=== PATIENT | male | born 1950 | race Caucasian/White ===

== ENCOUNTER → 2016-12-17 | Outpatient (CLI) | payer MEDICARE, OTHER ==
[2016-12-17 14:58] LABS: Potassium 3.9 mmol/L (3.5-5.1)
== END | disposition home or self-care (01) ==
LOC: LABWHC1 14:28
PROVIDERS: ATTEND Orthopaedic Surgery
DX: Z01.818 Encounter for other preprocedural examination (principal)
CPT/HCPCS: 36415; 80051

== ENCOUNTER → 2017-05-05 | Outpatient (CLI) | payer MEDICARE, OTHER ==
--- NOTE | 2017-05-05 09:57 | XR ---
EXAMINATION TYPE: XR abdomen 1V DATE OF EXAM: 05/05/2017 COMPARISON: NONE HISTORY: Abdominal TECHNIQUE: One view abdominal series FINDINGS: The osseous structures are intact. The bowel gas pattern is nonspecific. Surgical clips in the gallb ladder fossa. Hypertrophic degenerative changes spine. Large calcifications in the pelvis some of which may be vascular. Prostate calcifications are suspect ed. Cannot exclude a bladder calculi. No suspicious calculi overlying the renal outlines. There is a vague calcification adjacent to the ri ght transverse process of L5 measuring diameter of 4 mm. Arthropathy of the hips. IMPRESSION: 1. No evidence of renal calculi 2. Question a mid right ureteral calcification. Bladder calculi not excluded.
== END | disposition home or self-care (01) ==
LOC: RADXRMAIN 09:30
PROVIDERS: ATTEND Urology
DX: N20.0 Calculus of kidney (principal)
CPT/HCPCS: 74000

== ENCOUNTER → 2017-05-26 | Outpatient (CLI) | payer MEDICARE, OTHER ==
--- NOTE | 2017-05-26 14:45 | XR ---
Abdomen HISTORY: Renal stones Frontal view of the abdomen on 2 images correlated to prior abdomen 05/05/2017 Multiple calcifications are again seen overlying the pelvis. There are vascular calcifications presen t. Multilevel density seen on the prior exam the left hemipelvis now seen overlying the right hemipel vis may be loss prevention representative of bowel content. No other significant interval changes. Degenerative disc changes are present in the visualized spine. Right quadrant. Lung bases are clear. No bowel obstructi on or pneumoperitoneum. Sclerotic focus in the right femoral neck may represent bone island, follow-u p as indicated. IMPRESSION: Similar findings to prior exam. Additional findings above.
== END | disposition home or self-care (01) ==
LOC: RADXRMAIN 13:02
PROVIDERS: ATTEND Urology
DX: N20.1 Calculus of ureter (principal)
CPT/HCPCS: 74000

== ENCOUNTER → 2018-09-06 | Outpatient (CLI) | payer MEDICARE ==
[2018-09-06 14:57] LABS: Anion Gap 5 mmol/L; Blood Urea Nitrogen 23 mg/dL (9-20); Calcium 9.6 mg/dL (8.4-10.2); Carbon Dioxide 25 mmol/L (22-30); Chloride 112 mmol/L (98-107); Glucose 128 mg/dL (74-99); Potassium 4.7 mmol/L (3.5-5.1); Sodium 142 mmol/L (137-145)
[2018-09-06 15:11] LABS: Basophils % (A) 0 %; Eosinophils # (A) 0.3 k/uL (0-0.7); Eosinophils % (A) 3 %; HCT 37.5 % (39.0-53.0); HGB 11.6 gm/dL (13.0-17.5); Hypochromasia Slight; Lymphocytes # (A) 1.1 k/uL (1.0-4.8); Lymphocytes % (A) 11 %; MCHC 30.8 g/dL (31.0-37.0); Mean Platelet Volume 6.2; Monocytes # (A) 0.3 k/uL (0-1.0); Monocytes % (A) 3 %; Neutrophils # (A) 8.2 k/uL (1.3-7.7); Neutrophils % (A) 82 %; Platelet Count 375 k/uL (150-450); RBC 3.99 m/uL (4.30-5.90); RDW 15.3 % (11.5-15.5); WBC 9.9 k/uL (3.8-10.6)
[2018-09-06 15:36] LABS: Amorphous Sediment,Urine Rare /hpf; Appearance,Urine Clear (Clear); Bilirubin,Urine Negative (Negative); Blood,Urine Small (Negative); Color,Urine Yellow; Glucose,Urine (UA) Negative (Negative); Ketones,Urine Negative (Negative); Leukocyte Esterase,Urine Moderate (Negative); Mucus,Urine Rare /hpf; Nitrite,Urine Negative (Negative); PH, Urine 5.5 (5.0-8.0); Protein,Urine Negative (Negative); RBC,Urine 2 /hpf (0-5); Specific Gravity,Urine 1.014 (1.001-1.035); Squamous Epithelial Cell,Urine <1 /hpf (0-4); Urobilinogen,Urine <2.0 mg/dL (<2.0); WBC,Urine 10 /hpf (0-5)
--- NOTE | 2018-09-06 16:02 | XR ---
EXAMINATION TYPE: XR chest 2V DATE OF EXAM: 09/06/2018 COMPARISON: Prior chest x-ray 08/29/2018 HISTORY: Presurgical TECHNIQUE: Frontal and lateral views of the chest are obtained. FINDINGS: There is abnormal density at the posterior lung base level which appears somewhat more con spicuous than on prior exam, likely right lower lobe. Prominent lung volumes are compatible with unde rlying COPD. Apical pleural thickening is present. Suspect some scarring in the right lung base. The heart is small. Pulmonary vascularity and adonis not significantly changed. IMPRESSION: Correlate for right lower lobe pneumonia. Follow-up to resolution is recommended.
== END | disposition home or self-care (01) ==
LOC: LABPAT 13:22
PROVIDERS: ATTEND Urology
DX: Z01.818 Encounter for other preprocedural examination (principal); Z01.812 Encounter for preprocedural laboratory examination; I25.10 Atherosclerotic heart disease of native coronary artery without angina pectoris; I10 Essential (primary) hypertension; E11.9 Type 2 diabetes mellitus without complications; R31.29 Other microscopic hematuria; N40.1 Benign prostatic hyperplasia with lower urinary tract symptoms; N21.0 Calculus in bladder
CPT/HCPCS: 36415; 71046; 80048; 81001; 85025; 87086; 93005

== ENCOUNTER 2018-09-13 06:39 | Day surgery (SDC) | payer MEDICARE ==
--- NOTE | 2018-09-12 20:53 | P.GSHP ---
History of Present Illness H&P Date: 09/12/18 68 yo male with copd and urine retention, bladder stones that has failed conservative[medication] management to relieve his urine retention He comes for a cystolithotripsy and turp - Constitutional Constitutional: Reports weakness - Cardiovascular Cardiovascular: Reports high blood pressure - Respiratory Respiratory: Reports dyspnea - Menstruation Menstruation: Reports as per HPI Past Medical History Past Medical History: COPD, Hyperlipidemia, Osteoarthritis (OA), Pneumonia, Prostate Disorder Additional Past Medical History / Comment(s): PNEUMONIA/VENITLATED/TRACH @ [facility] FROM 06/12/18 TO 06/30/18, THEN TRANSFERED TO REHAB UNIT IN [facility] FROM TO 07/12/18. O2/2L @ NIGHT. RESTLESS LEG. NEUROPATHY . BLADDER CALCULI. HAS HAD ONE SEIZURE DURING [facility]. History of Any Multi-Drug Resistant Organisms: None Reported Additional Past Surgical History / Comment(s): RIGHT WRIST BX (SQ CELL). WINIFRED ARTHRO KNEE. TRIGGER RELEASE BOTH HANDS . AMPUTATION TIP INDEX LEFT. HEART CATH-NEG. Past Anesthesia/Blood Transfusion Reactions: No Reported Reaction Past Psychological History: Anxiety Smoking Status: Former smoker Past Alcohol Use History: Rare Additional Past Alcohol Use History / Comment(s): QUIT JUNE 12, 2018. .5 PPD FOR 50+ YEAR. Past Drug Use History: None Reported - Past Family History Mother Family Medical History: Cancer Additional Family Medical History / Comment(s): LUNG Medications and Allergies Home Medications Medication Instructions Recorded Confirmed Type ALPRAZolam [Xanax] 0.5 mg PO TID PRN 09/08/18 09/08/18 History Albuterol Sulfate [Proair Hfa] 1 puff IN DIRECTED PRN 09/08/18 09/08/18 History Atorvastatin [Lipitor] 10 mg PO HS 09/08/18 09/08/18 History Atorvastatin [Lipitor] 10 mg PO HS 09/08/18 09/08/18 History Finasteride [Proscar] 5 mg PO QAM 09/08/18 09/08/18 History Gabapentin [Neurontin] 100 mg PO TID 09/08/18 09/08/18 History HYDROcodone/APAP 10-325MG [Levels 1 tab PO TID 09/08/18 09/08/18 History 10-325] Ipratropium-Albuterol Nebulize 1 dose INHALATION QID 09/08/18 09/08/18 History [Duoneb 0.5 mg-3 mg/3 ml Soln] Montelukast [Singulair] 10 mg PO HS 09/08/18 09/08/18 History Roflumilast [Daliresp] 500 mg PO QAM 09/08/18 09/08/18 History Tamsulosin [Flomax] 0.4 mg PO BID 09/08/18 09/08/18 History Theophylline 12 Hour [Jaskaran-Dur] 300 mg PO QAM 09/08/18 09/08/18 History Tiotropium 18 Mcg/Puff [Spiriva] 1 puff INHALATION QA 09/08/18 09/08/18 History diphenhydrAM/PE/DM/ACETAMIN/GG 1 tab PO DIRECTED 09/08/18 09/08/18 History [Mucinex Fast-Max Day-Nite Cold] predniSONE 5 mg PO QAM 09/08/18 09/08/18 History rOPINIRole HCL 0.5 mg PO HS 09/08/18 09/08/18 History Allergies Allergy/AdvReac Type Severity Reaction Status Date / Time varenicline [From Chantix] Allergy Rash/Hives Verified 09/08/18 11:40 Surgical - Exam - General well developed, well nourished, no distress, chronically ill - Eyes PERRL, normal ocular movement - ENT no hearing loss - Neck no masses, no bruits - Respiratory ROMERO normal expansion - Cardiovascular Rhythm: regular - Abdomen Abdomen: soft, non tender - Genitourinary indwelling catheter, prostate enlarged normal penis with no external lesions, testicles present - Rectum Rectum: normal sphincter tone - Integumentary no rash, no growths - Neurologic normal coordination, normal sensation - Musculoskeletal normal gait, normal posture - Psychiatric oriented to time, oriented to person, oriented to place, speech is normal, memory intact Assessment and Plan Assessment: Impression: Urine retention due to BPH with bladder stones, copd, cad, dm Plan Cysto lithotripsy and turp
[~2018-09-13 06:39] MED LIST: AMPICILLIN 1,000 MG in SODIUM CHLORIDE 0.9% 50 ML IVPB ONE; DEXAMETHASONE SOD PHOSPHATE 10 MG/ML 1 ML VIAL IV ONE; GENTAMICIN 120 MG in SODIUM CHLORIDE 0.9% 100 ML IVPB ONE; HYDROmorphone 0.5 MG/0.5 ML SYRINGE IVP PRN; MIDAZOLAM (PF) 2 MG/2 ML VIAL IV PRN; ONDANSETRON 4 MG/2 ML VIAL IVP ONE
[2018-09-13] MEDS: LACTATED RINGERS 1,000 ML IV SCH (06:59)
[2018-09-13 07:05] LABS: Glucose,Whole Blood 142 mg/dL (75-99)
[2018-09-13] MEDS ORDERED: PROPOFOL 10 MG/ML 20 ML VIAL IV ONE (08:28)
[2018-09-13] MEDS ORDERED: fentaNYL (PF) 50 MCG/ML 2 ML AMP ONE (08:28)
[2018-09-13] MEDS ORDERED: MIDAZOLAM 2 MG/2 ML VIAL ONE (08:28)
[2018-09-13] MEDS ORDERED: ALPRAZolam 0.5 MG TAB PO PRN (09:55)
[2018-09-13] MEDS ORDERED: ALBUTEROL NEBULIZED 2.5 MG/3 ML INHALATION PRN (09:55)
[2018-09-13] MEDS ORDERED: ACETAMINOPHEN TAB 325 MG TAB PO PRN (10:00)
[2018-09-13] MEDS ORDERED: BELLADONNA-OPIUM 16.2-60 MG 1 EACH SUPP RECTAL PRN (10:00)
[2018-09-13] MEDS ORDERED: LACTATED RINGERS 1,000 ML IV ONE ×3 (10:05)
--- NOTE | 2018-09-13 10:07 | P.OP ---
Date of Procedure: 09/13/18 Preoperative Diagnosis: BPH, bladder stones Postoperative Diagnosis: Same Procedure(s) Performed: Cystoscopy, removal multiple bladder stones, TURP, bipolar Anesthesia: spinal Surgeon: Des Hayes Estimated Blood Loss (ml): 50 Pathology: other (Stones, prostate) Condition: stable Disposition: PACU Indications for Procedure: The patient is an healthy 68-year-old gentleman with cardiac and pulmonary problems with significant BPH and recurrent bladder stone formation. He comes for cystoscopy lithotripsy and TURP Description of Procedure: Patient is brought to the operating suite. He is given a successful spinal anesthetic. He's placed lithotomy position with a sterile prep and drape. Under direct vision the 25-Moldovan sheath Foroblique lens and direct vision operative is introduced in urethra it is normal. Prostatic urethra shows trilobar obstruction with edema. The bladder identifies multiple small stones. Multiple attempts allows a successful irrigation of the stones out of the bladder up. I then introduced the Soni resectoscope and bipolar loop. I first resect the middle lobe of the prostate to allow ease of passage of the scope in and out of the prostate. I moved to 12:00 and resect the left lateral lobe from bladder neck to verumontanum. I do the same with the right lateral lobe and then resect the redundant floor tissue. If any remaining prostatic chips or stones with the Ellik evacuator. Prostatic bleeding is controlled electrocautery. I reinspected the bladder there is no remaining stone or prostatic chips. I inspect the prosthetic fossa is well resected and bleeding is controlled electrocautery. I removed the resectoscope and introduce an 18- Moldovan coud-tip catheter into the bladder with clear urine return. Patient's awake and returned recovery in good condition. He'll be kept in the hospital overnight because medical problems. He'll be discharged home upon recovery tomorrow
[2018-09-13] MEDS: IPRATROPIUM-ALBUTEROL 3 ML NEB INHALATION SCH ×3 (12:55→20:36)
[2018-09-13] MEDS: DEXTROSE 5%-0.45% NACL 1,000 ML IV SCH ×2 (16:17→23:11)
[2018-09-13] MEDS: GABAPENTIN 100 MG CAP PO SCH ×2 (16:40→21:08)
[2018-09-13] MEDS: HYDROcodone/APAP 10-325MG 1 EACH TAB PO SCH ×2 (16:40→21:08)
[2018-09-13] MEDS ORDERED: MONTELUKAST 10 MG TAB PO SCH (21:00)
[2018-09-13] MEDS ORDERED: ATORVASTATIN 10 MG TAB PO SCH ×2 (21:00)
[2018-09-13] MEDS: DOCUSATE 100 MG CAP PO SCH (21:08)
[2018-09-13] MEDS: DOXYCYCLINE 100 MG CAP PO SCH (21:08)
[2018-09-14 01:37] VITALS: TEMP 98
[2018-09-14] MEDS: LACTATED RINGERS 1,000 ML IV SCH (04:42)
[2018-09-14] MEDS ORDERED: NON-FORMULARY DRUG (Tiotropium 18 Mcg/Puff 1 PUFF) INHALATION SCH (09:00)
[2018-09-14] MEDS ORDERED: Roflumilast [Daliresp] PO SCH (09:00)
[2018-09-14] MEDS ORDERED: predniSONE 5 MG TAB PO SCH (09:00)
[2018-09-14] MEDS ORDERED: THEOPHYLLINE 24 HOUR 300 MG CAP.ER.24H PO SCH (09:00)
[2018-09-14] MEDS: IPRATROPIUM-ALBUTEROL 3 ML NEB INHALATION SCH ×2 (09:05→12:57)
[2018-09-14 09:38] VITALS: BP 129/61; RESP 18
[2018-09-14] MEDS: DOCUSATE 100 MG CAP PO SCH (09:38)
[2018-09-14] MEDS: GABAPENTIN 100 MG CAP PO SCH (09:38)
[2018-09-14] MEDS: HYDROcodone/APAP 10-325MG 1 EACH TAB PO SCH (09:38)
[2018-09-14] MEDS: DOXYCYCLINE 100 MG CAP PO SCH (09:39)
--- NOTE | 2018-09-14 12:00 | P.DS ---
Providers Attending physician: Des Hayes Primary care physician: [facility] Course: The patient was admitted to the hospital yesterday [id number] for a TURP. He was brought in the hospital postoperatively because of medical reasons. Significant history of cardiac and pulmonary disease. He had a spinal anesthetic. The TURP was uneventful. The urine is cleared nicely. He'll be discharged home this morning. He'll follow-up in the office tomorrow for catheter removal. Postoperative instructions were given. He can resume his home medications. His diet is regular. He can hold the tamsulosin. It is good. Patient Condition at Discharge: Good Plan - Discharge Summary Discharge Rx Participant: Yes New Discharge Prescriptions: No Action rOPINIRole HCL 0.5 mg PO HS Roflumilast [Daliresp] 500 mg PO QAM Tiotropium 18 Mcg/Puff [Spiriva] 1 puff INHALATION QAM Ipratropium-Albuterol Nebulize [Duoneb 0.5 mg-3 mg/3 ml Soln] 1 dose INHALATION QID Gabapentin [Neurontin] 100 mg PO TID diphenhydrAM/PE/DM/ACETAMIN/GG [Mucinex Fast-Max Day-Nite Cold] 1 tab PO DIRECTED HYDROcodone/APAP 10-325MG [[place] 10-325] 1 tab PO TID Albuterol Sulfate [Proair Hfa] 1 puff IN DIRECTED PRN PRN Reason: Shortness Of Breath Or Wheezing ALPRAZolam [Xanax] 0.5 mg PO TID PRN PRN Reason: Anxiety predniSONE 5 mg PO QAM Montelukast [Singulair] 10 mg PO HS Theophylline 12 Hour [Jaskaran-Dur] 300 mg PO QAM Tamsulosin [Flomax] 0.4 mg PO BID Atorvastatin [Lipitor] 10 mg PO HS Atorvastatin [Lipitor] 10 mg PO HS Finasteride [Proscar] 5 mg PO QAM Discharge Medication List ALPRAZolam [Xanax] 0.5 mg PO TID PRN 09/08/18 [History] Albuterol Sulfate [Proair Hfa] 1 puff IN DIRECTED PRN 09/08/18 [History] Atorvastatin [Lipitor] 10 mg PO HS 09/08/18 [History] Atorvastatin [Lipitor] 10 mg PO HS 09/08/18 [History] Finasteride [Proscar] 5 mg PO QAM 09/08/18 [History] Gabapentin [Neurontin] 100 mg PO TID 09/08/18 [History] HYDROcodone/APAP 10-325MG [[place] 10-325] 1 tab PO TID 09/08/18 [History] Ipratropium-Albuterol Nebulize [Duoneb 0.5 mg-3 mg/3 ml Soln] 1 dose INHALATION QID 09/08/18 [History] Montelukast [Singulair] 10 mg PO HS 09/08/18 [History] Roflumilast [Daliresp] 500 mg PO QAM 09/08/18 [History] Tamsulosin [Flomax] 0.4 mg PO BID 09/08/18 [History] Theophylline 12 Hour [Jaskaran-Dur] 300 mg PO QAM 09/08/18 [History] Tiotropium 18 Mcg/Puff [Spiriva] 1 puff INHALATION QAM 09/08/18 [History] diphenhydrAM/PE/DM/ACETAMIN/GG [Mucinex Fast-Max Day-Nite Cold] 1 tab PO DIRECTED 09/08/18 [History] predniSONE 5 mg PO QAM 09/08/18 [History] rOPINIRole HCL 0.5 mg PO HS 09/08/18 [History] Follow up Appointment(s)/Referral(s): Des Hayes MD [STAFF PHYSICIAN] - 09/15/18 (for catheter removal) Activity/Diet/Wound Care/Special Instructions: home with duarte Discharge Disposition: HOME SELF-CARE
[2018-09-14 13:07] VITALS: PULSE 76
== END 2018-09-14 13:15 | disposition home or self-care (01) ==
LOC: OR 06:39 → 4SSUR 09:50 → OR 09-14 13:15
PROVIDERS: ATTEND Urology
DX: N41.1 Chronic prostatitis (principal); N40.1 Benign prostatic hyperplasia with lower urinary tract symptoms; R33.8 Other retention of urine; N21.0 Calculus in bladder; J43.9 Emphysema, unspecified; I25.10 Atherosclerotic heart disease of native coronary artery without angina pectoris; N13.8 Other obstructive and reflux uropathy; K21.9 Gastro-esophageal reflux disease without esophagitis; J96.11 Chronic respiratory failure with hypoxia; E78.00 Pure hypercholesterolemia, unspecified; E78.5 Hyperlipidemia, unspecified; M19.90 Unspecified osteoarthritis, unspecified site; G25.81 Restless legs syndrome; E11.40 Type 2 diabetes mellitus with diabetic neuropathy, unspecified; F41.9 Anxiety disorder, unspecified; Z87.891 Personal history of nicotine dependence; Z79.891 Long term (current) use of opiate analgesic; Z79.52 Long term (current) use of systemic steroids; Z79.899 Other long term (current) drug therapy; Z88.8 Allergy status to other drugs, medicaments and biological substances; Z99.81 Dependence on supplemental oxygen; Z87.01 Personal history of pneumonia (recurrent); Z79.2 Long term (current) use of antibiotics; Z79.51 Long term (current) use of inhaled steroids; Z87.440 Personal history of urinary (tract) infections
CPT/HCPCS: 52601; 94640 ×4; 94760; 88305; 82365; J2250; J1100; J2405; J3010; J1580; J0290; J2704; J7512

== ENCOUNTER → 2018-11-27 | Outpatient (CLI) | payer MEDICARE ==
[2018-11-27 16:01] LABS: HGB 12.9 gm/dL (13.0-17.5); MCH 28.3 pg (25.0-35.0); MCHC 31.4 g/dL (31.0-37.0); MCV 90.2 fL (80.0-100.0); Mean Platelet Volume 6.3; Platelet Count 373 k/uL (150-450); RBC 4.54 m/uL (4.30-5.90); RDW 15.1 % (11.5-15.5); WBC 10.2 k/uL (3.8-10.6)
[2018-11-27 16:15] LABS: Anion Gap 5 mmol/L; Blood Urea Nitrogen 25 mg/dL (9-20); Carbon Dioxide 27 mmol/L (22-30); Chloride 106 mmol/L (98-107); Potassium 4.2 mmol/L (3.5-5.1); Sodium 138 mmol/L (137-145)
== END ==
LOC: LABPAT 15:20
PROVIDERS: ATTEND Internal Medicine Interventional Cardiology
DX: Z01.812 Encounter for preprocedural laboratory examination (principal); R94.31 Abnormal electrocardiogram [ECG] [EKG]
CPT/HCPCS: 36415; 80051; 82565; 84520; 85027

== ENCOUNTER 2018-11-29 09:40 | Day surgery (SDC) | payer MEDICARE ==
[2018-11-28 11:37] VITALS: BMI 26.6
[~2018-11-29 09:40] MED LIST changes: -AMPICILLIN 1,000 MG in SODIUM CHLORIDE 0.9% 50 ML IVPB ONE; -DEXAMETHASONE SOD PHOSPHATE 10 MG/ML 1 ML VIAL IV ONE; -GENTAMICIN 120 MG in SODIUM CHLORIDE 0.9% 100 ML IVPB ONE; -HYDROmorphone 0.5 MG/0.5 ML SYRINGE IVP PRN; +LACTATED RINGERS 1,000 ML IV SCH; +LIDOCAINE 1% 20 ML VIAL (10MG/ML) FOR IV START INTRADERMA PRN; -MIDAZOLAM (PF) 2 MG/2 ML VIAL IV PRN; -ONDANSETRON 4 MG/2 ML VIAL IVP ONE
[2018-11-29 10:24] VITALS: RESP 20; TEMP 98.1
[2018-11-29] MEDS ORDERED: ALBUTEROL INHALER 60 PUFF/8 GM INHALER INHALATION ONE (10:50)
[2018-11-29] MEDS ORDERED: PROPOFOL 10 MG/ML 20 ML VIAL IV ONE (10:50)
[2018-11-29] MEDS ORDERED: LIDOCAINE 1% INJ 10MG/ML (20 ML MDV) ONE (10:50)
--- NOTE | 2018-11-29 11:04 | P.GSHP ---
History of Present Illness H&P Date: 11/29/18 Chief Complaint: Dysphagia 68-year-old male who is known to our service. Patient has had progressive dysphagia recently. Patient here today for upper endoscopy to evaluate the source of his dysphagia. He is currently being worked up from a pulmonary and cardiac standpoint for inguinal hernia repair. Patient with severe COPD. Past Medical History Past Medical History: COPD, Hyperlipidemia, Osteoarthritis (OA), Pneumonia, Prostate Disorder Additional Past Medical History / Comment(s): FREQUENT HOARSENESS,PNEUMONIA/VENITLATED/. TRACH @ [facility] FROM 06/12/18 TO 06/30/18, THEN TRANSFERED TO REHAB UNIT IN [facility] FROM 06/30/18 TO 07/12/18. O2/2L @ NIGHT. RESTLESS LEG. NEUROPATHY . BLADDER CALCULI. HAS HAD ONE SEIZURE DURING BRONCHOSCOPY History of Any Multi-Drug Resistant Organisms: None Reported Additional Past Surgical History / Comment(s): TURP RIGHT WRIST BX (SQ CELL). WINIFRED ARTHRO KNEE. TRIGGER RELEASE BOTH HANDS . AMPUTATION TIP INDEX LEFT. HEART CATH-NEG. Past Anesthesia/Blood Transfusion Reactions: No Reported Reaction Smoking Status: Former smoker - Past Family History Mother Family Medical History: Cancer Additional Family Medical History / Comment(s): LUNG Medications and Allergies Home Medications Medication Instructions Recorded Confirmed Type ALPRAZolam [Xanax] 0.5 mg PO TID PRN 09/08/18 11/29/18 History Albuterol Sulfate [Proair Hfa] 1 puff IN DIRECTED PRN 09/08/18 11/29/18 History Atorvastatin [Lipitor] 10 mg PO HS 09/08/18 11/29/18 History Gabapentin [Neurontin] 100 mg PO TID 09/08/18 11/29/18 History HYDROcodone/APAP 10-325MG [[place] 1 tab PO TID 09/08/18 11/29/18 History 10-325] Ipratropium-Albuterol Nebulize 1 dose INHALATION QID 09/08/18 11/29/18 History [Duoneb 0.5 mg-3 mg/3 ml Soln] Montelukast [Singulair] 10 mg PO HS 09/08/18 11/29/18 History Roflumilast [Daliresp] 500 mg PO QAM 09/08/18 11/29/18 History Theophylline 12 Hour [Jaskaran-Dur] 300 mg PO BID 09/08/18 11/29/18 History Tiotropium 18 Mcg/Puff [Spiriva] 1 puff INHALATION QAM 09/08/18 11/29/18 History diphenhydrAM/PE/DM/ACETAMIN/GG 1 tab PO DIRECTED 09/08/18 11/29/18 History [Mucinex Fast-Max Day-Nite Cold] rOPINIRole HCL 0.5 mg PO HS 09/08/18 11/29/18 History Albuterol Sulfate [Proventil Hfa] 2 puff IN DIRECTED PRN 11/28/18 11/29/18 History Calcium Carbonate [Calcium] 600 mg PO DAILY 11/28/18 11/29/18 History Cholecalciferol (Vitamin D3) 2,000 unit PO DAILY 11/28/18 11/29/18 History [Vitamin D3] Multivitamins, Thera [Multivitamin 1 tab PO DAILY 11/28/18 11/29/18 History (formulary)] predniSONE 10 mg PO DAILY 11/28/18 11/29/18 History Cephalexin [Keflex] 500 mg PO Q12HR 11/29/18 11/29/18 History Allergies Allergy/AdvReac Type Severity Reaction Status Date / Time No Known Allergies Allergy Verified 11/29/18 10:14 Surgical - Exam Vital Signs Temp Pulse Resp BP Pulse Ox 98.1 F 84 20 150/85 95 11/29/18 10:15 11/29/18 10:15 11/29/18 10:15 11/29/18 10:15 11/29/18 10:15 Physical exam: General: Well-developed, well-nourished, mildly short of breath HEENT: Normocephalic, sclerae nonicteric Abdomen: Nontender, nondistended Extremities: No edema Neuro: Alert and oriented Assessment and Plan (1) Dysphagia Narrative/Plan: Will proceed with upper endoscopy at this time with possible dilation. Risks of bleeding and perforation reviewed. He understands and wishes to proceed. Current Visit: Yes Status: Acute Code(s): R13.10 - DYSPHAGIA, UNSPECIFIED SNOMED Code(s): 22394781
--- NOTE | 2018-11-29 11:10 | P.PCN ---
Date of Procedure: 11/29/18 Procedure(s) Performed: Preoperative Dx: Dysphagia Postoperative Dx: Mild gastritis, small hiatal hernia Procedure: EGD with Bx Anesthesia: Sedation Endoscopist: Dr. Cornelius Specimens: Antrum Endoscopic Procedure: The patient was on the endoscopy table in the left decubitus position. The Olympus gastroscope was inserted into the oropharynx and passed under direct visualization to the region of the third portion of the duodenum. From that point the scope was slowly withdrawn inspecting all surfaces carefully. There were no neoplastic inflammatory or polypoid lesions throughout the duodenum. The pylorus was widely patent. The stomach was carefully inspected. There was gastritis present. A biopsy of the antrum took place to rule out H. pylori. Retroflexion revealed a small sliding hiatal hernia. No esophagitis was present. There was no obstructing lesion seen however there was mild impression on the esophagus from the region of the left bronchus and aortic notch. This did not appear to be causing significant obstruction at this time. The patient was then taken to the recovery room in stable condition per anesthesia guidelines. Recommendations: Resume diet. If symptoms of dysphagia persist would consider modified barium swallow.
[2018-11-29 11:44] VITALS: BP 121/69; PULSE 84
== END 2018-11-29 12:59 | disposition short-term general hospital (02) ==
LOC: ORWHC2ENDO 09:40
PROVIDERS: ATTEND Surgery
DX: K29.70 Gastritis, unspecified, without bleeding (principal); K44.9 Diaphragmatic hernia without obstruction or gangrene; E78.5 Hyperlipidemia, unspecified; G25.81 Restless legs syndrome; M19.90 Unspecified osteoarthritis, unspecified site; J44.9 Chronic obstructive pulmonary disease, unspecified; Z99.81 Dependence on supplemental oxygen; F41.9 Anxiety disorder, unspecified; G62.9 Polyneuropathy, unspecified; Z87.891 Personal history of nicotine dependence; Z87.442 Personal history of urinary calculi; Z79.891 Long term (current) use of opiate analgesic; Z79.52 Long term (current) use of systemic steroids; Z79.899 Other long term (current) drug therapy
CPT/HCPCS: 88305; 43239; J2001; J2704

== ENCOUNTER 2018-11-29 09:42 | Day surgery (SDC) | payer MEDICARE ==
[~2018-11-29 09:42] MED LIST changes: +ALPRAZolam 0.25 MG TAB PO PRN; +ASPIRIN 325 MG TAB PO ONE; -LACTATED RINGERS 1,000 ML IV SCH; -LIDOCAINE 1% 20 ML VIAL (10MG/ML) FOR IV START INTRADERMA PRN; +NITROGLYCERIN SL TABS 0.4 MG TAB SUBLINGUAL PRN; +SODIUM CHLORIDE 0.9% 1,000 ML in EMPTY BAG 1 BAG IV ONE
[2018-11-29] MEDS ORDERED: VERAPAMIL 2.5 MG/ML 2 ML AMP ONE (15:48)
[2018-11-29] MEDS ORDERED: LIDOCAINE 1% INJ 10MG/ML (20 ML MDV) ONE (15:48)
[2018-11-29] MEDS ORDERED: MIDAZOLAM 2 MG/2 ML VIAL IV ONE (15:49)
[2018-11-29] MEDS ORDERED: fentaNYL (PF) 50 MCG/ML 2 ML AMP IV ONE (15:49)
[2018-11-29] MEDS ORDERED: LIDOCAINE 1% INJ 10MG/ML (20 ML MDV) SQ ONE (15:49)
[2018-11-29] MEDS ORDERED: IV FLUID CONTINUATION 850 ML IV ONE (15:50)
[2018-11-29] MEDS ORDERED: VERAPAMIL SYRINGE (5 MG/10 ML) INTRAARTER ONE (15:51)
[2018-11-29] MEDS ORDERED: HEPARIN SODIUM 1,000 UN/ML (10ML VL) ONE (15:52)
[2018-11-29] MEDS ORDERED: IOPAMIDOL-370 100ML BTL INJ ONE (16:01)
[2018-11-29] MEDS ORDERED: RX INFO: IV CONTRAST WAS GIVEN 1 EACH MISC MISCELLANE PRN (16:05)
[2018-11-29] MEDS ORDERED: SODIUM CHLORIDE 0.9% 1,000 ML IV SCH (16:15)
[2018-11-29 16:32] VITALS: TEMP 97.9
[2018-11-29 16:44] VITALS: BMI 26.4
[2018-11-29 18:19] VITALS: BP 133/71; PULSE 71
--- NOTE | 2018-11-29 18:58 | LTR ---
DATE OF SERVICE: November 29, [address] Dougherty: Mr. Anuj Marcum underwent a heart catheterization today and that revealed normal coronaries. I want to thank you for allowing us to participate in his care. Please do not hesitate to call if you have any questions or concerns. Sincerely, KENDRA / MELISSA: [phone] /
--- NOTE | 2018-11-29 18:58 | CC ---
CARDIAC CATHETERIZATION REPORT DATE OF SERVICE: 11/29/2018 PERFORMING PHYSICIAN: Ant Erickson MD, industrial order clerk. PROCEDURE PERFORMED: 1. Selective right and left coronary angiogram. 2. Left heart catheterization. INDICATION: This is a 68-year-old gentleman with history of COPD, who was experiencing shortness of breath and he was going to undergo noncardiac surgery. He underwent myocardial perfusion imaging stress test and that revealed anterior ischemia and because of that, heart catheterization was advised. APPROACH: Right radial artery. COMPLICATION: None. LEVEL OF SEDATION: Moderate. Sedation length of 15 minutes. PROCEDURE DESCRIPTION: After obtaining an informed consent, the patient was brought to cardiac mobile lab technician. The right radial artery was cannulated using micropuncture technique and a micropuncture wire passed easily and placed a 6-Occitan sheath 11 cm in the right radial artery. I gave the patient 2 mg of verapamil IA and 10,000 units of heparin IV. Selective right and left coronary angiogram was performed using JR4 and JL 3.5 catheter. Left heart catheterization was performed using the JR4 catheter. The procedure was completed without complication. SELECTIVE CORONARY ANGIOGRAM: 1. The RCA is angiographically normal. RCA is a large caliber vessel and is a dominant vessel and appears to be angiographically normal. It distally bifurcates into PDA and PLV branches both appeared to be angiographically normal. 2. The left main is angiographically normal. It bifurcates into the left circumflex and left anterior descending artery. 3. The left circumflex is a large caliber vessel. It is a nondominant vessel. The left circumflex is normal and gives rise into 2 OM branches both appeared to be angiographically normal. 4. The LAD: The proximal LAD appeared to be normal. The mid LAD appeared to be normal and distally is normal as well. The LAD gives rise into a large diagonal branch which appeared to be angiographically normal. HEMODYNAMICS: The left ventricular end diastolic pressure was 4-6 mmHg without any gradient across aortic valve. CONCLUSION: 1. Normal coronary angiogram. 2. Normal left ventricular end-diastolic. POSTPROCEDURE MANAGEMENT: 1. Medical treatment. 2. Follow up with the patient. MMODL / IJN: [id number] /
[2018-11-29 20:19] VITALS: RESP 22
== END 2018-11-29 21:05 | disposition home or self-care (01) ==
LOC: CATHCVL 09:42 → 1SOBS 16:02 → CATHCVL 21:05
PROVIDERS: ATTEND Internal Medicine Interventional Cardiology
DX: R94.39 Abnormal result of other cardiovascular function study (principal); R06.02 Shortness of breath; I42.8 Other cardiomyopathies; J44.9 Chronic obstructive pulmonary disease, unspecified; J96.11 Chronic respiratory failure with hypoxia; F17.210 Nicotine dependence, cigarettes, uncomplicated; Q24.8 Other specified congenital malformations of heart; Z99.81 Dependence on supplemental oxygen; Z79.52 Long term (current) use of systemic steroids; Z79.899 Other long term (current) drug therapy; Z88.8 Allergy status to other drugs, medicaments and biological substances
CPT/HCPCS: 93458; C1769; C1894; J2250; J2001; J1644; Q9967

== ENCOUNTER 2019-03-07 07:07 | Day surgery (SDC) | payer MEDICARE ==
[2019-03-02 12:47] VITALS: BMI 26.1
[~2019-03-07 07:07] MED LIST changes: -ALPRAZolam 0.25 MG TAB PO PRN; -ASPIRIN 325 MG TAB PO ONE; +DEXAMETHASONE SOD PHOSPHATE 10 MG/ML 1 ML VIAL IV ONE; +HEPARIN SODIUM,PORCINE 5,000 UNIT/ML 1 ML VIAL SQ ONE; +HYDROmorphone 0.5 MG/0.5 ML SYRINGE IVP PRN; +LACTATED RINGERS 1,000 ML IV SCH; +LIDOCAINE 1% 20 ML VIAL (10MG/ML) FOR IV START INTRADERMA PRN; +MIDAZOLAM 2 MG/2 ML VIAL IV PRN; -NITROGLYCERIN SL TABS 0.4 MG TAB SUBLINGUAL PRN; +ONDANSETRON 4 MG/2 ML VIAL IVP ONE; -SODIUM CHLORIDE 0.9% 1,000 ML in EMPTY BAG 1 BAG IV ONE; +fentaNYL (PF) 50 MCG/ML 2 ML AMP IV PRN
[2019-03-07 07:33] LABS: Glucose,Whole Blood 121 mg/dL (75-99)
--- NOTE | 2019-03-07 07:48 | P.GSHP ---
History of Present Illness H&P Date: 03/07/19 Chief Complaint: right inguinal hernia Patient here today for repair right inguinal hernia. Patient is obtained cardiac and pulmonary clearance. Patient with history of advanced COPD and heart disease. Patient has been complaining for the last several months of persistent pain at the site of the right inguinal hernia. No nausea or vomiting. No change in bowel habits. Past Medical History Past Medical History: COPD, Hearing Disorder / Deafness, Hyperlipidemia, Osteoarthritis (OA), Pneumonia, Prostate Disorder Additional Past Medical History / Comment(s): [place], has hearing aids but does not use them. FREQUENT HOARSENESS, HX PNEUMONIA/VENITLATED/TRACH @ [facility] FROM 06/12/18 TO 06/30/18, THEN TRANSFERED TO REHAB UNIT IN [facility] FROM 06/30/18 TO 07/12/18. O2/2L @ NIGHT. RESTLESS LEG. NEUROPATHY. HX BLADDER CALCULI. HAS HAD ONE SEIZURE DURING BRONCHOSCOPY. History of Any Multi-Drug Resistant Organisms: None Reported Past Surgical History: Heart Catheterization, Prostate Surgery Additional Past Surgical History / Comment(s): TURP, RIGHT WRIST BX (SQ CELL). WINIFRED ARTHRO KNEE. TRIGGER FINGER RELEASE BOTH HANDS. AMPUTATION TIP LEFT INDEX FINGER. Tracheotomy. Past Anesthesia/Blood Transfusion Reactions: No Reported Reaction Past Psychological History: Anxiety Smoking Status: Former smoker Past Alcohol Use History: Rare Additional Past Alcohol Use History / Comment(s): QUIT SMOKING JUNE 12, 2018. SMOKED 1/2 PPD FOR 50+ YEARS. Past Drug Use History: None Reported - Past Family History Mother Family Medical History: Cancer Additional Family Medical History / Comment(s): LUNG Cancer. Medications and Allergies Home Medications Medication Instructions Recorded Confirmed Type ALPRAZolam [Xanax] 0.5 mg PO TID PRN 09/08/18 03/07/19 History Albuterol Sulfate [Proair Hfa] 1 puff IN DIRECTED PRN 09/08/18 03/07/19 History Atorvastatin [Lipitor] 10 mg PO HS 09/08/18 03/07/19 History Gabapentin [Neurontin] 100 mg PO TID 09/08/18 03/07/19 History HYDROcodone/APAP 10-325MG [[place] 1 tab PO TID 09/08/18 03/07/19 History 10-325] Ipratropium-Albuterol Nebulize 1 dose INHALATION QID 09/08/18 03/07/19 History [Duoneb 0.5 mg-3 mg/3 ml Soln] Montelukast [Singulair] 10 mg PO HS 09/08/18 03/07/19 History Roflumilast [Daliresp] 500 mg PO QAM 09/08/18 03/07/19 History Theophylline 12 Hour [Jaskaran-Dur] 300 mg PO BID 09/08/18 03/07/19 History Tiotropium 18 Mcg/Puff [Spiriva] 1 puff INHALATION QAM 09/08/18 03/07/19 History diphenhydrAM/PE/DM/ACETAMIN/GG 1 tab PO DAILY 09/08/18 03/07/19 History [Mucinex Fast-Max Day-Nite Cold] rOPINIRole HCL 0.5 mg PO HS 09/08/18 03/07/19 History Albuterol Sulfate [Proventil Hfa] 2 puff IN DIRECTED PRN 11/28/18 03/07/19 History Calcium Carbonate [Calcium] 600 mg PO DAILY 11/28/18 03/07/19 History Cholecalciferol (Vitamin D3) 2,000 unit PO DAILY 11/28/18 03/07/19 History [Vitamin D3] Multivitamins, Thera [Multivitamin 1 tab PO DAILY 11/28/18 03/07/19 History (formulary)] predniSONE 10 mg PO QAM 11/28/18 03/07/19 History Allergies Allergy/AdvReac Type Severity Reaction Status Date / Time No Known Allergies Allergy Verified 03/07/19 07:24 Surgical - Exam Vital Signs Temp Pulse Resp BP Pulse Ox 98.5 F 81 16 129/71 96 03/07/19 07:28 03/07/19 07:28 03/07/19 07:28 03/07/19 07:28 03/07/19 07:28 Physical exam: General: Well-developed, well-nourished HEENT: Normocephalic, sclerae nonicteric Abdomen: Nontender, nondistended, reducible right inguinal hernia Extremities: No edema Neuro: Alert and oriented Results - Labs Abnormal Lab Results - Last 24 Hours (Table) 03/07/19 Range/Units 07:30 POC Glucose (mg/dL) 121 H (75-99) mg/dL Assessment and Plan (1) Right inguinal hernia Narrative/Plan: Options reviewed with the patient in details. Patient with increased risk related to his underlying comorbidities. Patient despite that is anxious to have this hernia repaired given his daily symptoms. Will proceed with open repair at this time. Risks of bleeding, infection, recurrence, bladder and bowel injury, numbness, nerve injury were discussed with the patient. The patient understands and wishes to proceed. Current Visit: Yes Status: Acute Code(s): K40.90 - UNIL INGUINAL HERNIA, W/O OBST OR GANGR, NOT SPCF RECUR OMED Code(s): 685027335
[2019-03-07] MEDS ORDERED: MIDAZOLAM 2 MG/2 ML VIAL ONE (09:28)
[2019-03-07] MEDS ORDERED: fentaNYL (PF) 50 MCG/ML 2 ML AMP ONE (09:28)
[2019-03-07] MEDS ORDERED: PROPOFOL 10 MG/ML 20 ML VIAL IV ONE (09:28)
[2019-03-07] MEDS ORDERED: BUPIVACAINE (PF) 0.25% 30 ML VIAL SQ ONE (10:02)
[2019-03-07] MEDS ORDERED: LACTATED RINGERS 1,000 ML IV ONE (10:53)
[2019-03-07 11:13] VITALS: TEMP 97
[2019-03-07] MEDS ORDERED: IPRATROPIUM-ALBUTEROL 3 ML NEB INHALATION STA (12:02)
[2019-03-07] MEDS ORDERED: HYDROcodone/APAP 10-325MG 1 EACH TAB PO ONE (12:47)
[2019-03-07 13:05] VITALS: RESP 20
[2019-03-07 13:33] VITALS: PULSE 74
[2019-03-07] MEDS ORDERED: TAMSULOSIN 0.4 MG CAP.ER.24H PO STA (13:56)
[2019-03-07 14:29] VITALS: BP 150/78
--- NOTE | 2019-03-07 20:37 | P.OP ---
Date of Procedure: 03/07/19 Procedure(s) Performed: PREOPERATIVE DIAGNOSIS: Right inguinal hernia POSTOPERATIVE DIAGNOSIS: Same PROCEDURE: Right inguinal hernia repair with mesh SURGEON: Ashli EBL: Minimal ANESTHESIA: General COMPLICATIONS: None OPERATIVE PROCEDURE: Patient was placed in the operating table in the supine position and placed under general anesthesia. An oblique incision was made in the Right groin. Dissection down through the subcutaneous tissues took place using electrocautery. The external oblique fascia was incised using a scalpel. This opening was lengthened using the Metzenbaum scissors. The spermatic cord was encircled with a Tomasa drain. The structures were identified and preserved. Careful dissection revealed an indirect hernia sac. This was carefully dissected back to the internal inguinal ring where it was ligated using 2 separate 0 silk stick tie sutures. A 3" x 6" Prolene mesh was cut to fit on the exposed fascia. This was sutured to the pubic tubercle the folding edge of the inguinal ligament and the conjoined tendon. A slit was created in the mesh and the mesh was wrapped around the spermatic cord and sutured back to itself. The external oblique was then reapproximated using a running 2-0 Vicryl suture. The subcutaneous tissues were reapproximated using a 3-0 Vicryl sut ures. The skin was closed using 4-0 Monocryl sutures. Skin glue was then applied. DISPOSITION: Stable to recovery room
== END 2019-03-07 14:36 | disposition home or self-care (01) ==
LOC: OR 07:07
PROVIDERS: ATTEND Surgery
DX: K40.90 Unilateral inguinal hernia, without obstruction or gangrene, not specified as recurrent (principal); E78.5 Hyperlipidemia, unspecified; G25.81 Restless legs syndrome; H91.90 Unspecified hearing loss, unspecified ear; J44.9 Chronic obstructive pulmonary disease, unspecified; M19.90 Unspecified osteoarthritis, unspecified site; Z87.891 Personal history of nicotine dependence; Z89.022 Acquired absence of left finger(s); J96.11 Chronic respiratory failure with hypoxia; Z99.81 Dependence on supplemental oxygen; Z79.899 Other long term (current) drug therapy
CPT/HCPCS: 94640; 49505; C1781; J2250; J1644; J1100; J0690; J2405; J3010; J2704; 88302

== ENCOUNTER 2021-04-30 13:44 | Inpatient (IN) | payer MEDICARE, OTHER ==
[2021-04-30] MEDS ORDERED: methylPREDNISolone SOD SUCCI 125 MG/2 ML VIAL IV STA (14:08)
[2021-04-30] MEDS ORDERED: SODIUM CHLORIDE 0.9% 1,000 ML IV STA (14:08)
[2021-04-30] MEDS ORDERED: IPRATROPIUM-ALBUTEROL 3 ML NEB INHALATION STA (14:08)
--- NOTE | 2021-04-30 14:14 | ED ---
General Adult HPI - General Chief complaint: Shortness of Breath Stated complaint: SUSANNAH Time Seen by Provider: 04/30/21 13:55 Source: patient, family, RN notes reviewed Mode of arrival: wheelchair Limitations: no limitations - History of Present Illness Initial comments: Patient is a pleasant 70-year-old male presenting to the emergency Department with complaints of difficulty breathing. Onset of symptoms was a few days ago. Patient was recently on antibiotics and finished them. Patient is currently on 10 mg daily of prednisone. Symptoms have worsened even today. No recent fevers. Positive mild cough. - Related Data Home Medications Medication Instructions Recorded Confirmed ALPRAZolam [Xanax] 0.5 mg PO TID PRN 09/08/18 03/07/19 Albuterol Sulfate [Proair Hfa] 1 puff IN DIRECTED PRN 09/08/18 03/07/19 Atorvastatin [Lipitor] 10 mg PO HS 09/08/18 03/07/19 Gabapentin [Neurontin] 100 mg PO TID 09/08/18 03/07/19 HYDROcodone/APAP 10-325MG [[place] 1 tab PO TID 09/08/18 03/07/19 10-325] Ipratropium-Albuterol Nebulize 1 dose INHALATION QID 09/08/18 03/07/19 [Duoneb 0.5 mg-3 mg/3 ml Soln] Montelukast [Singulair] 10 mg PO HS 09/08/18 03/07/19 Roflumilast [Daliresp] 500 mg PO QAM 09/08/18 03/07/19 Theophylline 12 Hour [Jaskaran-Dur] 300 mg PO BID 09/08/18 03/07/19 Tiotropium 18 Mcg/Puff [Spiriva] 1 puff INHALATION QAM 09/08/18 03/07/19 diphenhydrAM/PE/DM/ACETAMIN/GG 1 tab PO DAILY 09/08/18 03/07/19 [Mucinex Fast-Max Day-Nite Cold] rOPINIRole HCL [Requip] 0.5 mg PO HS 09/08/18 03/07/19 Albuterol Sulfate [Proventil Hfa] 2 puff IN DIRECTED PRN 11/28/18 03/07/19 Calcium Carbonate [Calcium] 600 mg PO DAILY 11/28/18 03/07/19 Cholecalciferol (Vitamin D3) 2,000 unit PO DAILY 11/28/18 03/07/19 [Vitamin D3] Multivitamins, Thera [Multivitamin 1 tab PO DAILY 11/28/18 03/07/19 (formulary)] predniSONE 10 mg PO QAM 11/28/18 03/07/19 Allergies Allergy/AdvReac Type Severity Reaction Status Date / Time No Known Allergies Allergy Verified 03/07/19 07:24 Review of Systems ROS Statement: Those systems with pertinent positive or pertinent negative responses have been documented in the HPI. ROS Other: All systems not noted in ROS Statement are negative. Constitutional: Denies: fever Eyes: Denies: eye pain ENT: Denies: ear pain Respiratory: Reports: cough, dyspnea Cardiovascular: Denies: chest pain Endocrine: Reports: fatigue Gastrointestinal: Denies: abdominal pain Genitourinary: Denies: dysuria Musculoskeletal: Denies: back pain Skin: Denies: rash Neurological: Denies: weakness Past Medical History Past Medical History: COPD, Hearing Disorder / Deafness, Hyperlipidemia, Osteoarthritis (OA), Pneumonia, Prostate Disorder Additional Past Medical History / Comment(s): [place], has hearing aids but does not use them. FREQUENT HOARSENESS, HX PNEUMONIA/VENITLATED/TRACH @ [facility] FROM 06/12/18 TO 06/30/18, THEN TRANSFERED TO REHAB UNIT IN [facility] FROM 06/30/18 TO 07/12/18. O2/2L @ NIGHT. RESTLESS LEG. NEUROPATHY. HX BLADDER CALCULI. HAS HAD ONE SEIZURE DURING BRONCHOSCOPY. History of Any Multi-Drug Resistant Organisms: None Reported Past Surgical History: Heart Catheterization, Prostate Surgery Additional Past Surgical History / Comment(s): TURP, RIGHT WRIST BX (SQ CELL). WINIFRED ARTHRO KNEE. TRIGGER FINGER RELEASE BOTH HANDS. AMPUTATION TIP LEFT INDEX FINGER. Tracheotomy. Past Anesthesia/Blood Transfusion Reactions: No Reported Reaction Past Psychological History: Anxiety Past Alcohol Use History: Rare Past Drug Use History: None Reported - Past Family History Mother Family Medical History: Cancer Additional Family Medical History / Comment(s): LUNG Cancer. General Exam Limitations: no limitations General appearance: alert Head exam: Present: atraumatic Eye exam: Present: normal appearance Neck exam: Present: normal inspection Respiratory exam: Present: respiratory distress, wheezes, decreased breath sounds Cardiovascular Exam: Present: regular rate, normal rhythm GI/Abdominal exam: Present: soft. Absent: tenderness Extremities exam: Present: normal inspection. Absent: pedal edema, calf tenderness Neurological exam: Present: alert Psychiatric exam: Present: normal affect, normal mood Skin exam: Present: normal color Course Vital Signs 04/30/21 04/30/21 04/30/21 13:45 14:06 14:18 Temperature 97.8 F Pulse Rate 94 92 Respiratory 28 H 24 27 H Rate Blood Pressure 115/66 O2 Sat by Pulse 92 L Oximetry 04/30/21 04/30/21 14:34 14:48 Temperature Pulse Rate 76 76 Respiratory 27 H 24 Rate Blood Pressure O2 Sat by Pulse 97 Oximetry EKG Findings - EKG Comments: EKG Findings:: Normal sinus rhythm with rate of 91. UT 140. QRS 92. QT 348. QTC 428. Right axis. Poor R-wave progression. No acute ST change. Medical Decision Making - Medical Decision Making Chest x-ray shows right. The left basilar infiltrates. He should reevaluated and significantly improved with BiPAP. Dr. Sanabria notified. Dr. Dougherty was paged for admission of this patient. - Lab Data Result diagrams: 04/30/21 14:18 04/30/21 14:18 Lab Results 04/30/21 04/30/21 04/30/21 Range/Units 14:18 14:18 14:18 WBC 13.7 H (3.8-10.6) k/uL RBC 4.77 (4.30-5.90) m/uL Hgb 14.6 (13.0-17.5) gm/dL Hct 46.2 (39.0-53.0) % MCV 96.8 (80.0-100.0) fL MCH 30.7 (25.0-35.0) pg MCHC 31.7 (31.0-37.0) g/dL RDW 15.5 (11.5-15.5) % Plt Count 338 (150-450) k/uL MPV 7.5 Neutrophils % 91 % Lymphocytes % 4 % Monocytes % 4 % Eosinophils % 1 % Basophils % 0 % Neutrophils # 12.4 H (1.3-7.7) k/uL Lymphocytes # 0.5 L (1.0-4.8) k/uL Monocytes # 0.5 (0-1.0) k/uL Eosinophils # 0.1 (0-0.7) k/uL Basophils # 0.0 (0-0.2) k/uL Hypochromasia Slight PT 10.2 (9.0-12.0) sec INR 0.9 (<1.2) APTT 22.1 (22.0-30.0) sec Sodium 139 (137-145) mmol/L Potassium 5.1 (3.5-5.1) mmol/L Chloride 95 L (98-107) mmol/L Carbon Dioxide 36 H (22-30) mmol/L Anion Gap 8 mmol/L BUN 36 H (9-20) mg/dL Creatinine 0.89 (0.66-1.25) mg/dL Est GFR (CKD-EPI)AfAm >90 (>60 ml/min/1.73 sqM) Est GFR (CKD-EPI)NonAf 86 (>60 ml/min/1.73 sqM) Glucose 168 H (74-99) mg/dL Plasma Lactic Acid Yoshi (0.7-2.0) mmol/L Calcium 10.5 H (8.4-10.2) mg/dL Magnesium 2.4 H (1.6-2.3) mg/dL Total Bilirubin 0.5 (0.2-1.3) mg/dL AST 36 (17-59) U/L ALT 35 (4-49) U/L Alkaline Phosphatase 90 (38-126) U/L Troponin I (0.000-0.034) ng/mL NT-Pro-B Natriuret Pep pg/mL Total Protein 6.7 (6.3-8.2) g/dL Albumin 3.8 (3.5-5.0) g/dL 04/30/21 04/30/21 04/30/21 Range/Units 14:18 14:18 14:18 WBC (3.8-10.6) k/uL RBC (4.30-5.90) m/uL Hgb (13.0-17.5) gm/dL Hct (39.0-53.0) % MCV (80.0-100.0) fL MCH (25.0-35.0) pg MCHC (31.0-37.0) g/dL RDW (11.5-15.5) % Plt Count (150-450) k/uL MPV Neutrophils % % Lymphocytes % % Monocytes % % Eosinophils % % Basophils % % Neutrophils # (1.3-7.7) k/uL Lymphocytes # (1.0-4.8) k/uL Monocytes # (0-1.0) k/uL Eosinophils # (0-0.7) k/uL Basophils # (0-0.2) k/uL Hypochromasia PT (9.0-12.0) sec INR (<1.2) APTT (22.0-30.0) sec Sodium (137-145) mmol/L Potassium (3.5-5.1) mmol/L Chloride (98-107) mmol/L Carbon Dioxide (22-30) mmol/L Anion Gap mmol/L BUN (9-20) mg/dL Creatinine (0.66-1.25) mg/dL Est GFR (CKD-EPI)AfAm (>60 ml/min/1.73 sqM) Est GFR (CKD-EPI)NonAf (>60 ml/min/1.73 sqM) Glucose (74-99) mg/dL Plasma Lactic Acid Yoshi 1.2 (0.7-2.0) mmol/L Calcium (8.4-10.2) mg/dL Magnesium (1.6-2.3) mg/dL Total Bilirubin (0.2-1.3) mg/dL AST (17-59) U/L ALT (4-49) U/L Alkaline Phosphatase (38-126) U/L Troponin I <0.012 (0.000-0.034) ng/mL NT-Pro-B Natriuret Pep 193 pg/mL Total Protein (6.3-8.2) g/dL Albumin (3.5-5.0) g/dL Critical Care Time Critical Care Time: Yes Total Critical Care Time: 32 Disposition Clinical Impression: Acute exacerbation of chronic obstructive pulmonary disease, Acute respiratory failure, Pneumonia Disposition: ADMITTED IP TO THIS HOSP Is patient prescribed a controlled substance at d/c from ED?: No Referrals: Vinicius Dougherty MD [Primary Care Provider] - 1-2 days Decision Time: 15:06
[2021-04-30 14:34] LABS: Basophils % (A) 0 %; Eosinophils # (A) 0.1 k/uL (0-0.7); Eosinophils % (A) 1 %; HCT 46.2 % (39.0-53.0); HGB 14.6 gm/dL (13.0-17.5); Hypochromasia Slight; Lymphocytes # (A) 0.5 k/uL (1.0-4.8); Lymphocytes % (A) 4 %; MCH 30.7 pg (25.0-35.0); MCHC 31.7 g/dL (31.0-37.0); MCV 96.8 fL (80.0-100.0); Mean Platelet Volume 7.5; Monocytes # (A) 0.5 k/uL (0-1.0); Monocytes % (A) 4 %; Neutrophils # (A) 12.4 k/uL (1.3-7.7); Neutrophils % (A) 91 %; Platelet Count 338 k/uL (150-450); RBC 4.77 m/uL (4.30-5.90); RDW 15.5 % (11.5-15.5); WBC 13.7 k/uL (3.8-10.6)
[2021-04-30 14:43] LABS: ALT 35 U/L (4-49); AST 36 U/L (17-59); African American GFR (CKD) >90 (>60 ml/min/1.73 sqM); Albumin 3.8 g/dL (3.5-5.0); Alkaline Phosphatase 90 U/L (38-126); Anion Gap 8 mmol/L; Blood Urea Nitrogen 36 mg/dL (9-20); Calcium 10.5 mg/dL (8.4-10.2); Carbon Dioxide 36 mmol/L (22-30); Chloride 95 mmol/L (98-107); Glucose 168 mg/dL (74-99); Magnesium 2.4 mg/dL (1.6-2.3); Non-African American GFR(CKD) 86 (>60 ml/min/1.73 sqM); Potassium 5.1 mmol/L (3.5-5.1); Sodium 139 mmol/L (137-145); Total Bilirubin 0.5 mg/dL (0.2-1.3); Total Protein 6.7 g/dL (6.3-8.2)
[2021-04-30 14:53] LABS: INR 0.9 (<1.2); Partial Thromboplastin Time 22.1 sec (22.0-30.0); Prothrombin Time 10.2 sec (9.0-12.0)
--- NOTE | 2021-04-30 14:58 | XR ---
EXAMINATION TYPE: XR chest 1V portable DATE OF EXAM: 04/30/2021 COMPARISON: Chest x-ray September 06, 2018. Additional study April 15, 2021 HISTORY: History of COPD with dyspnea. TECHNIQUE: 3 AP portable frontal uprights view of the chest are obtained. FINDINGS: There is background chronic emphysematous and pulmonary fibrotic changes redemonstrated wi th interval progression in the lateral and the lower lungs from 2019. New bibasilar opacities. The ca rdiac silhouette size remains within normal limits with atherosclerotic thoracic aorta. The osseous structures are intact. IMPRESSION: Chronic emphysematous and pulmonary fibrotic changes with new bibasilar acute infiltrate and/or atelectasis. Progress study advised.
[2021-04-30] MEDS ORDERED: PIPERACILLIN-TAZOBACTAM 3.375 GM in SODIUM CHLORIDE 0.9% 100 ML IVPB STA (15:06)
[2021-04-30] MEDS ORDERED: IPRATROPIUM-ALBUTEROL 3 ML NEB INHALATION PRN (15:06)
[2021-04-30] MEDS ORDERED: AZITHROMYCIN 500 MG in SODIUM CHLORIDE 0.9% 250 ML IVPB STA (15:06)
[2021-04-30] MEDS ORDERED: PNEUMONIA PROTOCOL UTILIZED 1 EACH MISC PO PRN (15:06)
--- NOTE | 2021-04-30 16:08 | P.CNPUL ---
History of Present Illness Consult date: 04/30/21 Requesting physician: Fercho Price Reason for consult: dyspnea, hypoxemia, pneumonia, abnormal CXR/CT Chief complaint: Dyspnea, cough, pneumonia History of present illness: 70-year-old male patient with known history of severe COPD, with chronic hypoxic respiratory failure, an FEV1 of 1.19 L or 37% of predicted, tobacco dependence syndrome, GERD/reflux, esophageal dysphagia, inguinal hernia, who sees Dr. Short in the pulmonary clinic. Patient was recently seen in the office on 04/15/2021 and placed on Levaquin for possibility of left upper lobe pneumonia. At that time patient was complaining of intermittent episodes of cough, wheezing, shortness of breath. His cough is productive with whitish yellowish phlegm. He is on the maintenance dose of prednisone 10 mg daily, is given a prednisone taper, he is on DuoNeb, Singulair, Mucinex 600 mg, Spiriva, and theophylline ER 300 mg twice daily. Patient came into the emergency department brought in by his on 04/30/2021 for evaluation of worsening shortness of breath. Apparently his symptoms started to get worse a few days ago. He completed his antibiotics, he is currently back on prednisone 10 mg daily, no recent fevers, reports a cough with production of yellowish phlegm, chest x-ray shows chronic emphysematous and pulmonary fibrotic changes with new bibasilar acute infiltrate and/or atelectasis. His lab work showed a white blood cell count of 13.7, hemoglobin 14.6, sodium was 139, potassium is 5.1, chloride was 95, CO2 is 36, BUN was 36, creatinine 0.89, lactic acid was 1.2, calcium level was 10.5, magnesium was 2.4, LFTs were within normal limits, troponin was less than 0.012, proBNP was 193, COVID-19 PCR was negative. Patient was afebrile in the emergency department however she is very short of breath, with increased work of breathing. He was placed on BiPAP support with pressures of 12 and 6 and FiO2 at 50%, and his pulse ox is 97%, his breathing is still quite labored, he is very bronchospastic. However he is awake and alert, he is very short of breath to talk, his is at the bedside and providing most of the history. Review of Systems All systems: negative Constitutional: Denies chills, Denies fever Eyes: denies blurred vision, denies pain Ears, nose, mouth and throat: Denies headache, Denies sore throat Cardiovascular: Denies chest pain, Denies shortness of breath Respiratory: Reports cough with sputum, Reports dyspnea, Reports home oxygen, Reports respiratory infections, Reports wheezing Gastrointestinal: Denies abdominal pain, Denies diarrhea, Denies nausea, Denies vomiting Musculoskeletal: Denies myalgias Integumentary: Denies pruritus, Denies rash Neurological: Denies numbness, Denies weakness Psychiatric: Denies anxiety, Denies depression Endocrine: Denies fatigue, Denies weight change Past Medical History Past Medical History: COPD, Hearing Disorder / Deafness, Hyperlipidemia, Osteoarthritis (OA), Pneumonia, Prostate Disorder Additional Past Medical History / Comment(s): [place], has hearing aids but does not use them. FREQUENT HOARSENESS, HX PNEUMONIA/VENITLATED/TRACH @ [facility] FROM TO 06/30/18, THEN TRANSFERED TO REHAB UNIT IN [facility] FROM 06/30/18 TO 07/12/18. O2/2L @ NIGHT. RESTLESS LEG. NEUROPATHY. HX BLADDER CALCULI. HAS HAD ONE SEIZURE DURING BRONCHOSCOPY. History of Any Multi-Drug Resistant Organisms: None Reported Past Surgical History: Heart Catheterization, Prostate Surgery Additional Past Surgical History / Comment(s): TURP, RIGHT WRIST BX (SQ CELL). WINIFRED ARTHRO KNEE. TRIGGER FINGER RELEASE BOTH HANDS. AMPUTATION TIP LEFT INDEX FINGER. Tracheotomy. Past Anesthesia/Blood Transfusion Reactions: No Reported Reaction Past Psychological History: Anxiety Past Alcohol Use History: Rare Past Drug Use History: None Reported - Past Family History Mother Family Medical History: Cancer Additional Family Medical History / Comment(s): LUNG Cancer. Medications and Allergies Home Medications Medication Instructions Recorded Confirmed Type ALPRAZolam [Xanax] 0.5 mg PO TID PRN 09/08/18 03/07/19 History Albuterol Sulfate [Proair Hfa] 1 puff IN DIRECTED PRN 09/08/18 03/07/19 History Atorvastatin [Lipitor] 10 mg PO HS 09/08/18 03/07/19 History Gabapentin [Neurontin] 100 mg PO TID 09/08/18 03/07/19 History HYDROcodone/APAP 10-325MG [[place] 1 tab PO TID 09/08/18 03/07/19 History 10-325] Ipratropium-Albuterol Nebulize 1 dose INHALATION QID 09/08/18 03/07/19 History [Duoneb 0.5 mg-3 mg/3 ml Soln] Montelukast [Singulair] 10 mg PO HS 09/08/18 03/07/19 History Roflumilast [Daliresp] 500 mg PO QAM 09/08/18 03/07/19 History Theophylline 12 Hour [Jaskaran-Dur] 300 mg PO BID 09/08/18 03/07/19 History Tiotropium 18 Mcg/Puff [Spiriva] 1 puff INHALATION QAM 09/08/18 03/07/19 History diphenhydrAM/PE/DM/ACETAMIN/GG 1 tab PO DAILY 09/08/18 03/07/19 History [Mucinex Fast-Max Day-Nite Cold] rOPINIRole HCL [Requip] 0.5 mg PO HS 09/08/18 03/07/19 History Albuterol Sulfate [Proventil Hfa] 2 puff IN DIRECTED PRN 11/28/18 03/07/19 History Calcium Carbonate [Calcium] 600 mg PO DAILY 11/28/18 03/07/19 History Cholecalciferol (Vitamin D3) 2,000 unit PO DAILY 11/28/18 03/07/19 History [Vitamin D3] Multivitamins, Thera [Multivitamin 1 tab PO DAILY 11/28/18 03/07/19 History (formulary)] predniSONE 10 mg PO QAM 11/28/18 03/07/19 History Allergies Allergy/AdvReac Type Severity Reaction Status Date / Time No Known Allergies Allergy Verified 03/07/19 07:24 Physical Exam Vitals: Vital Signs Temp Pulse Resp BP Pulse Ox 04/30/21 15:00 86 24 97 04/30/21 14:48 76 24 97 04/30/21 14:34 76 27 H 04/30/21 14:18 92 27 H 04/30/21 14:06 24 04/30/21 13:45 97.8 F 94 28 H 115/66 92 L Intake and Output 04/30/21 04/30/21 04/30/21 06:59 14:59 22:59 Other: Weight 65.771 kg GENERAL EXAM: Alert, 70-year-old white male, very short of breath, labored breathing, using accessory muscles of respiration, on BiPAP support in the emergency department with pressures of 12 and 6 and FiO2 of 50%, HEAD: Normocephalic/atraumatic. EYES: Normal reaction of pupils, equal size. Conjunctiva pink, sclera white. NOSE: Clear with pink turbinates. THROAT: No erythema or exudates. NECK: No masses, no JVD, no thyroid enlargement, no adenopathy. CHEST: No chest wall deformity. Symmetrical expansion. LUNGS: Equal air entry with diffuse wheezes CVS: Regular rate and rhythm, normal S1 and S2, no gallops, no murmurs, no rubs ABDOMEN: Soft, nontender. No hepatosplenomegaly, normal bowel sounds, no guarding or rigidity. EXTREMITIES: No clubbing, no edema, no cyanosis, 2+ pulses and upper and lower extremities. MUSCULOSKELETAL: Muscle strength and tone normal. SPINE: No scoliosis or deformity SKIN: No rashes CENTRAL NERVOUS SYSTEM: Alert and oriented -3. No focal deficits, tone is normal in all 4 extremities. PSYCHIATRIC: Alert and oriented -3. Appropriate affect. Intact judgment and insight. Results - Laboratory Findings CBC and BMP: 04/30/21 14:18 04/30/21 14:18 PT/INR, D-dimer PT 10.2 sec (9.0-12.0) 04/30/21 14:18 INR 0.9 (<1.2) 04/30/21 14:18 Abnormal lab findings: Abnormal Labs 04/30/21 04/30/21 14:18 14:18 WBC 13.7 H Neutrophils # 12.4 H Lymphocytes # 0.5 L Chloride 95 L Carbon Dioxide 36 H BUN 36 H Glucose 168 H Calcium 10.5 H Magnesium 2.4 H - Diagnostic Findings Chest x-ray: report reviewed, image reviewed Additional studies: EKG reviewed Assessment and Plan Plan: Assessment: #1. Acute on chronic hypoxic respiratory failure related to acute bibasilar pneumonia, possibly community acquired. COVID-19 PCR was negative #2. Recent left upper lobe pneumonia, patient was treated with a course of Levaquin which he had completed #3. Severe COPD with a baseline FEV1 37%, on home oxygen #4. Tobacco dependence syndrome #5. Hyperlipidemia #6. Osteoarthritis #7. Previous episode of respiratory failure requiring intubation, and mechanical ventilator support with subsequent tracheostomy, patient was succes sfully weaned from the vent support, and decannulated in 2018 #8. History of neuropathy #9. Anxiety #10. History of BPH, status post surgery Plan: Patient has been started on Zosyn and azithromycin COVID-19 PCR is negative Continue IV Solu-Medrol 60 g every 6 hours Continue nebulized bronchodilators Continue with BiPAP support, FiO2 down to 40% Continue to wean FiO2 to keep O2 sat saturations at or above 88% We'll continue to follow I performed a history & physical examination of the patient and discussed their management with my nurse practitioner, Osiris Asencio. I reviewed the nurse practitioner's note and agree with the documented findings and plan of care. Lung sounds are positive for diffuse wheezes throughout the lung lindsay. The findings and the impression was discussed with the patient. I attest to the documentation by the nurse practitioner. Time with Patient: Greater than 30
[2021-04-30] MEDS: methylPREDNISolone SOD SUCCI 125 MG/2 ML VIAL IV SCH ×2 (17:28→20:27)
[2021-04-30] MEDS: HYDROcodone/APAP 10-325MG 1 EACH TAB PO SCH ×2 (17:31→20:29)
[2021-04-30] MEDS: ENOXAPARIN 40 MG/0.4 ML SYRINGE SQ SCH (17:32)
[2021-04-30] MEDS: SODIUM CHLORIDE 0.9% 1,000 ML IV SCH ×2 (17:33→23:11)
[2021-04-30] MEDS: IPRATROPIUM-ALBUTEROL 3 ML NEB INHALATION SCH ×2 (17:35→20:25)
[2021-04-30 19:43] LABS: Glucose,Whole Blood 203 mg/dL (75-99)
[2021-04-30] MEDS: ATORVASTATIN 10 MG TAB PO SCH (20:27)
[2021-04-30] MEDS: GABAPENTIN 100 MG CAP PO SCH (20:27)
[2021-04-30] MEDS: ALPRAZolam 0.5 MG TAB PO SCH (20:27)
[2021-04-30] MEDS: MONTELUKAST 10 MG TAB PO SCH (20:27)
[2021-04-30] MEDS: CALCIUM CARB-VIT D 500 MG-5 MCG TAB PO SCH (20:27)
[2021-04-30] MEDS: PIPERACILLIN-TAZOBACTAM 3.375 GM in SODIUM CHLORIDE 0.9% 100 ML IVPB SCH (23:11)
[2021-05-01] MEDS: methylPREDNISolone SOD SUCCI 125 MG/2 ML VIAL IV SCH ×4 (03:01→20:37)
[2021-05-01 05:40] LABS: Glucose,Whole Blood 152 mg/dL (75-99)
[2021-05-01] MEDS: PANTOPRAZOLE 40 MG TABLET PO SCH (06:37)
[2021-05-01] MEDS: IPRATROPIUM-ALBUTEROL 3 ML NEB INHALATION SCH ×4 (07:22→19:06)
--- NOTE | 2021-05-01 08:03 | P.HPIM ---
History of Present Illness H&P Date: 05/01/21 Chief Complaint: Shortness of breath This is a history and physical on a 70-year-old white male with known history of COPD who came in with 3-4 day history of worsening shortness of breath and dyspnea. Evaluation emergency room did show lobar pneumonia with exacerbation of elements of COPD. The patient is now able to speak but has significant dyspnea and tachypnea. No voiding difficulties. No productive cough stated. No nausea, vomiting or diarrhea. No anginal chest pain stated. Review of Systems Constitutional: Denies chills, Denies fever Eyes: denies blurred vision, denies pain Ears, nose, mouth and throat: Denies headache, Denies sore throat Cardiovascular: Denies chest pain, Denies shortness of breath Respiratory: Reports as per HPI, Reports cough, Reports home oxygen Gastrointestinal: Denies abdominal pain, Denies diarrhea, Denies nausea, Denies vomiting Musculoskeletal: Denies myalgias Integumentary: Denies pruritus, Denies rash Past Medical History Past Medical History: COPD, Hearing Disorder / Deafness, Hyperlipidemia, Osteoarthritis (OA), Pneumonia, Prostate Disorder Additional Past Medical History / Comment(s): [place], has hearing aids but does not use them. FREQUENT HOARSENESS, HX PNEUMONIA/VENITLATED/TRACH @ [facility] FROM 06/12/18 TO 06/30/18, THEN TRANSFERED TO REHAB UNIT IN [facility] FROM 06/30/18 TO 07/12/18. O2/2L @ NIGHT. RESTLESS LEG. NEUROPATHY. HX BLADDER CALCULI. HAS HAD ONE SEIZURE DURING BRONCHOSCOPY. History of Any Multi-Drug Resistant Organisms: None Reported Past Surgical History: Heart Catheterization, Prostate Surgery Additional Past Surgical History / Comment(s): TURP, RIGHT WRIST BX (SQ CELL). WINIFRED ARTHRO KNEE. TRIGGER FINGER RELEASE BOTH HANDS. AMPUTATION TIP LEFT INDEX FINGER. Tracheotomy. Past Anesthesia/Blood Transfusion Reactions: No Reported Reaction Past Psychological History: Anxiety Smoking Status: Current every day smoker Past Alcohol Use History: Rare Additional Past Alcohol Use History / Comment(s): QUIT SMOKING JUNE 12, 2018. SMOKED 1/2 PPD FOR 50+ YEARS. Past Drug Use History: None Reported - Past Family History Mother Family Medical History: Cancer Additional Family Medical History / Comment(s): LUNG Cancer. Medications and Allergies Home Medications Medication Instructions Recorded Confirmed Type ALPRAZolam [Xanax] 0.5 mg PO TID 09/08/18 04/30/21 History Atorvastatin [Lipitor] 10 mg PO HS 09/08/18 04/30/21 History Gabapentin [Neurontin] 100 mg PO TID 09/08/18 04/30/21 History HYDROcodone/APAP 10-325MG [[place] 1 tab PO QID 09/08/18 04/30/21 History 10-325] Ipratropium-Albuterol Nebulize 3 ml INHALATION RT-QID 09/08/18 04/30/21 History [Duoneb 0.5 mg-3 mg/3 ml Soln] Montelukast [Singulair] 10 mg PO HS 09/08/18 04/30/21 History Theophylline 12 Hour [Jaskaran-Dur] 300 mg PO BID 09/08/18 04/30/21 History diphenhydrAM/PE/DM/ACETAMIN/GG 1 tab PO HS 09/08/18 04/30/21 History [Mucinex Fast-Max Day-Nite Cold] rOPINIRole HCL [Requip] 0.5 mg PO HS 09/08/18 04/30/21 History Albuterol Sulfate [Proventil Hfa] 2 puff INHALATION RT-QID PRN 11/28/18 04/30/21 History Calcium Carbonate [Calcium] 600 mg PO HS 11/28/18 04/30/21 History Multivitamins, Thera [Multivitamin 1 tab PO DAILY 11/28/18 04/30/21 History (formulary)] predniSONE See Taper PO DAILY 11/28/18 04/30/21 History Aspirin EC [Ecotrin Low Dose] 81 mg PO DAILY 04/30/21 04/30/21 History Cholecalciferol [Vitamin D3 (25 50 mcg PO DAILY 04/30/21 04/30/21 History Mcg = 1000 Iu)] Naloxone HCl [Narcan] 4 mg NASAL ONCE PRN 04/30/21 04/30/21 History Pantoprazole [Protonix] 40 mg PO DAILY 04/30/21 04/30/21 History Allergies Allergy/AdvReac Type Severity Reaction Status Date / Time No Known Allergies Allergy Verified 04/30/21 16:08 Physical Exam Vitals: Vital Signs Temp Pulse Pulse Resp BP BP Pulse Ox 05/01/21 07:35 76 05/01/21 07:22 70 05/01/21 04:00 97.8 F 65 18 99 04/30/21 23:16 98.1 F 74 17 96 04/30/21 20:36 86 04/30/21 20:26 83 04/30/21 19:54 97.8 F 80 34 H 98 04/30/21 17:46 88 04/30/21 17:39 98 04/30/21 17:36 85 04/30/21 17:23 98.5 F 87 28 H 141/76 96 04/30/21 16:30 97.8 F 86 20 118/58 97 04/30/21 16:00 97.8 F 86 20 118/58 97 04/30/21 15:00 86 24 97 04/30/21 14:48 76 24 97 04/30/21 14:34 76 27 H 04/30/21 14:18 92 27 H 04/30/21 14:06 24 04/30/21 13:45 97.8 F 94 28 H 115/66 92 L Intake and Output 04/30/21 05/01/21 05/01/21 22:59 06:59 14:59 Intake Total 225 200 Balance 225 200 Intake: Intake, IV Titration 100 Amount Piperacillin-Tazobactam 3 100 .375 gm In Sodium Chloride 0.9% 100 ml @ 25 mls/hr IVPB Q8HR [facility] Rx# :[id number] Oral 225 100 Other: Voiding Method Urinal Urinal # Voids 1 Weight 65.771 kg - Constitutional General appearance: average body habitus - EENT Eyes: EOMI - Neck Neck: no lymphadenopathy - Respiratory Respiratory: bilateral: diminished - Cardiovascular Rhythm: regular Heart sounds: normal: S1, S2 - Gastrointestinal General gastrointestinal: soft, no tenderness - Integumentary Integumentary: no cellulitis - Psychiatric Psychiatric: A&O x's 3, appropriate affect Results CBC & Chem 7: 04/30/21 14:18 04/30/21 14:18 Labs: Abnormal Lab Results - Last 24 Hours (Table) 04/30/21 04/30/21 04/30/21 Range/Units 14:18 14:18 19:40 WBC 13.7 H (3.8-10.6) k/uL Neutrophils # 12.4 H (1.3-7.7) k/uL Lymphocytes # 0.5 L (1.0-4.8) k/uL Chloride 95 L (98-107) mmol/L Carbon Dioxide 36 H (22-30) mmol/L BUN 36 H (9-20) mg/dL Glucose 168 H (74-99) mg/dL POC Glucose (mg/dL) 203 H (75-99) mg/dL Calcium 10.5 H (8.4-10.2) mg/dL Magnesium 2.4 H (1.6-2.3) mg/dL 05/01/21 Range/Units 05:38 WBC (3.8-10.6) k/uL Neutrophils # (1.3-7.7) k/uL Lymphocytes # (1.0-4.8) k/uL Chloride (98-107) mmol/L Carbon Dioxide (22-30) mmol/L BUN (9-20) mg/dL Glucose (74-99) mg/dL POC Glucose (mg/dL) 152 H (75-99) mg/dL Calcium (8.4-10.2) mg/dL Magnesium (1.6-2.3) mg/dL Thrombosis Risk Factor Assmnt - Choose All That Apply Any of the Below Risk Factors Present?: No Assessment and Plan (1) Acute exacerbation of chronic obstructive pulmonary disease Current Visit: Yes Status: Acute Code(s): J44.1 - CHRONIC OBSTRUCTIVE PULMONARY DISEASE W (ACUTE) EXACERBATION SNOMED Code(s): 321171806 (2) Pneumonia Current Visit: Yes Status: Acute Code(s): J18.9 - PNEUMONIA, UNSPECIFIED ORGANISM SNOMED Code(s): 525640674 Plan: Reconcile home medications. Appreciate pulmonology input. Check CBC and CMP in a.m. Dr. Blanco's group will be covering for the weekend. Anticipate discharge in about 3 days Time with Patient: Greater than 30
[2021-05-01] MEDS: PIPERACILLIN-TAZOBACTAM 3.375 GM in SODIUM CHLORIDE 0.9% 100 ML IVPB SCH ×3 (08:10→23:04)
[2021-05-01] MEDS: HYDROcodone/APAP 10-325MG 1 EACH TAB PO SCH ×4 (08:11→20:30)
[2021-05-01] MEDS: GABAPENTIN 100 MG CAP PO SCH ×3 (08:11→20:30)
[2021-05-01] MEDS: CHOLECALCIFEROL 25 MCG (1000 IU) TABLET PO SCH (08:11)
[2021-05-01] MEDS: ALPRAZolam 0.5 MG TAB PO SCH ×3 (08:11→20:29)
[2021-05-01] MEDS: ASPIRIN 81 MG PO SCH (08:11)
[2021-05-01] MEDS: THEOPHYLLINE 24 HOUR 300 MG CAP.ER.24H PO SCH (08:12)
[2021-05-01] MEDS: ENOXAPARIN 40 MG/0.4 ML SYRINGE SQ SCH (08:12)
--- NOTE | 2021-05-01 08:44 | XR ---
EXAMINATION TYPE: XR chest 2V DATE OF EXAM: 05/01/2021 COMPARISON: Chest x-ray dated 04/30/2021 HISTORY: Pneumonia TECHNIQUE: Frontal and lateral views of the chest are obtained. FINDINGS: Findings are similar, there is patchy basilar density noted. Cardiac mediastinal silhouett e is stable. Prominent lung volumes are consistent with underlying COPD, there is eventration of the right hemidiaphragm. The heart is stable. There are overlying artifacts. IMPRESSION: Correlate for pneumonia. There is underlying emphysema.
[2021-05-01 08:48] LABS: Basophils % (A) 0 %; Eosinophils % (A) 0 %; HCT 44.2 % (39.0-53.0); HGB 13.5 gm/dL (13.0-17.5); Hypochromasia Slight; Lymphocytes # (A) 0.5 k/uL (1.0-4.8); Lymphocytes % (A) 7 %; MCH 29.8 pg (25.0-35.0); MCHC 30.6 g/dL (31.0-37.0); MCV 97.6 fL (80.0-100.0); Mean Platelet Volume 7.1; Monocytes # (A) 0.2 k/uL (0-1.0); Monocytes % (A) 3 %; Neutrophils # (A) 6.4 k/uL (1.3-7.7); Neutrophils % (A) 90 %; Platelet Count 332 k/uL (150-450); RBC 4.53 m/uL (4.30-5.90); RDW 15.6 % (11.5-15.5); WBC 7.1 k/uL (3.8-10.6)
[2021-05-01 09:07] LABS: African American GFR (CKD) >90 (>60 ml/min/1.73 sqM); Anion Gap 4 mmol/L; Blood Urea Nitrogen 42 mg/dL (9-20); Calcium 9.8 mg/dL (8.4-10.2); Carbon Dioxide 40 mmol/L (22-30); Chloride 93 mmol/L (98-107); Glucose 234 mg/dL (74-99); Non-African American GFR(CKD) 80 (>60 ml/min/1.73 sqM); Potassium 5.1 mmol/L (3.5-5.1); Sodium 137 mmol/L (137-145)
[2021-05-01 11:51] LABS: Glucose,Whole Blood 145 mg/dL (75-99)
[2021-05-01] MEDS: MULTIVITAMINS, THERA 1 EACH TAB PO SCH (12:25)
[2021-05-01] MEDS: INSULIN ASPART (NovoLOG) 100 UNIT/ML VIAL SQ SCH ×3 (12:39→20:29)
--- NOTE | 2021-05-01 14:24 | P.PN ---
Subjective Progress Note Date: 05/01/21 Principal diagnosis: Acute on chronic hypoxic respiratory failure due to acute exacerbation of COPD and underlying pneumonia. Community-acquired. 70-year-old male patient with known history of severe COPD, with chronic hypoxic respiratory failure, an FEV1 of 1.19 L or 37% of predicted, tobacco dependence syndrome, GERD/reflux, esophageal dysphagia, inguinal hernia, who sees Dr. Short in the pulmonary clinic. Patient was recently seen in the office on 04/15/2021 and placed on Levaquin for possibility of left upper lobe pneumonia. At that time patient was complaining of intermittent episodes of cough, wheezing, shortness of breath. His cough is productive with whitish yellowish phlegm. He is on the maintenance dose of prednisone 10 mg daily, is given a prednisone taper, he is on DuoNeb, Singulair, Mucinex 600 mg, Spiriva, and theophylline ER 300 mg twice daily. Patient came into the emergency department brought in by his on 04/30/2021 for evaluation of worsening shortness of breath. Apparently his symptoms started to get worse a few days ago. He comple loco his antibiotics, he is currently back on prednisone 10 mg daily, no recent fevers, reports a cough with production of yellowish phlegm, chest x-ray shows chronic emphysematous and pulmonary fibrotic changes with new bibasilar acute infiltrate and/or atelectasis. His lab work showed a white blood cell count of 13.7, hemoglobin 14.6, sodium was 139, potassium is 5.1, chloride was 95, CO2 is 36, BUN was 36, creatinine 0.89, lactic acid was 1.2, calcium level was 10.5, magnesium was 2.4, LFTs were within normal limits, troponin was less than 0.012, proBNP was 193, COVID-19 PCR was negative. Patient was afebrile in the emergency department however she is very short of breath, with increased work of breathing. He was placed on BiPAP support with pressures of 12 and 6 and FiO2 at 50%, and his pulse ox is 97%, his breathing is still quite labored, he is very bronchospastic. However he is awake and alert, he is very short of breath to talk, his is at the bedside and providing most of the history. Patient was reevaluated today on 05/01/2021, patient seems to be doing much better today compared to yesterday. Less shortness of breath, less cough, less wheezing. Patient had BiPAP at night, presently back on nasal cannula, high flow with O2 saturation of 96%. Follow-up chest x-ray continues to show patchy basilar density at the right base, noted with evident ration of the right hemidiaphragm. WBC count today is 7.1 hemoglobin is 13.5 twice abnormal renal profile is normal. PCR for COVID-19 is negative. Objective - Vital Signs Vital signs: Vital Signs Temp 97.2 F L 05/01/21 12:34 Pulse 76 05/01/21 12:34 Resp 18 05/01/21 12:34 BP 98/54 05/01/21 12:34 Pulse Ox 96 05/01/21 12:34 Intake & Output 04/30/21 05/01/21 05/01/21 18:59 06:59 18:59 Intake Total 225 200 240 Output Total 400 Balance 225 200 -160 Weight 65.771 kg Intake: Intake, IV Titration 100 Amount Piperacillin-Tazobactam 3 100 .375 gm In Sodium Chloride 0.9% 100 ml @ 25 mls/hr IVPB Q8HR [facility] Rx# :[id number] Oral 225 100 240 Output: Urine 400 Other: Voiding Method Urinal Urinal # Voids 1 - Exam Physical Exam: Revealed a 70-year-old white male in no distress. Looks much more comfortable today compared to yesterday. Head: Atraumatic, normocephalic. HEENT:[Neck is supple.] [No neck masses.] [No thyromegaly.] [No JVD.] Chest: [Scattered rhonchi and wheezes noted bilaterally. Barrel chest is noted. Cardiac Exam: [Normal S1 and S2, no S3 gallop, no murmur.] Abdomen: [Soft, nontender, no megaly, no rebound, no guarding, normal bowel sounds.] Extremities: [No clubbing, no edema, no cyanosis.] Neurological Exam: [No focal neurologic deficit.] Alert oriented 3. Psychiatric: Normal mood, affect and normal mental status examination. Skin: No rashes. - Labs CBC & Chem 7: 05/01/21 08:22 05/01/21 08:22 Labs: Abnormal Lab Results - Last 24 Hours (Table) 04/30/21 04/30/21 04/30/21 Range/Units 14:18 14:18 19:40 WBC 13.7 H (3.8-10.6) k/uL MCHC (31.0-37.0) g/dL RDW (11.5-15.5) % Neutrophils # 12.4 H (1.3-7.7) k/uL Lymphocytes # 0.5 L (1.0-4.8) k/uL Chloride 95 L (98-107) mmol/L Carbon Dioxide 36 H (22-30) mmol/L BUN 36 H (9-20) mg/dL Glucose 168 H (74-99) mg/dL POC Glucose (mg/dL) 203 H (75-99) mg/dL Calcium 10.5 H (8.4-10.2) mg/dL Magnesium 2.4 H (1.6-2.3) mg/dL 05/01/21 05/01/21 05/01/21 Range/Units 05:38 08:22 08:22 WBC (3.8-10.6) k/uL MCHC 30.6 L (31.0-37.0) g/dL RDW 15.6 H (11.5-15.5) % Neutrophils # (1.3-7.7) k/uL Lymphocytes # 0.5 L (1.0-4.8) k/uL Chloride 93 L (98-107) mmol/L Carbon Dioxide 40 H (22-30) mmol/L BUN 42 H (9-20) mg/dL Glucose 234 H (74-99) mg/dL POC Glucose (mg/dL) 152 H (75-99) mg/dL Calcium (8.4-10.2) mg/dL Magnesium (1.6-2.3) mg/dL 05/01/21 Range/Units 11:49 WBC (3.8-10.6) k/uL MCHC (31.0-37.0) g/dL RDW (11.5-15.5) % Neutrophils # (1.3-7.7) k/uL Lymphocytes # (1.0-4.8) k/uL Chloride (98-107) mmol/L Carbon Dioxide (22-30) mmol/L BUN (9-20) mg/dL Glucose (74-99) mg/dL POC Glucose (mg/dL) 145 H (75-99) mg/dL Calcium (8.4-10.2) mg/dL Magnesium (1.6-2.3) mg/dL Microbiology - Last 24 Hours (Table) 05/01/21 00:14 Sputum Culture - Preliminary Sputum Assessment and Plan Assessment: #1. Acute on chronic hypoxic respiratory failure related to acute bibasilar pneumonia, possibly community acquired. COVID-19 PCR was negative #2. Recent left upper lobe pneumonia, patient was treated with a course of Levaquin which he had completed, patient has some residual scarring in the left upper lobe. #3. Severe COPD with a baseline FEV1 37%, on home oxygen #4. Tobacco dependence syndrome #5. Hyperlipidemia #6. Osteoarthritis #7. Previous episode of respiratory failure requiring intubation, and mechanical ventilator support with subsequent tracheostomy, patient was successfully weaned from the vent support, and decannulated in 2018 #8. History of neuropathy #9. Anxiety #10. History of BPH, status post surgery #11 right lower lobe pneumonia is suspected, community-acquired. Recommendation: Continue antibiotics Continue Solu-Medrol Continue nebulized bronchodilators. Continue BiPAP as needed Wean oxygen and titrate accordingly We will continue to follow and possible discharge planning in the next 48 hours. Time with Patient: Less than 30
[2021-05-01 15:09] VITALS: BMI 21.4
[2021-05-01] MEDS: AZITHROMYCIN 500 MG in SODIUM CHLORIDE 0.9% 250 ML IVPB SCH (16:16)
[2021-05-01] MEDS: SODIUM CHLORIDE 0.9% 1,000 ML IV SCH ×2 (16:17→20:30)
[2021-05-01 16:28] LABS: Glucose,Whole Blood 178 mg/dL (75-99)
[2021-05-01 20:10] LABS: Glucose,Whole Blood 106 mg/dL (75-99)
[2021-05-01] MEDS: ATORVASTATIN 10 MG TAB PO SCH (20:29)
[2021-05-01] MEDS: CALCIUM CARB-VIT D 500 MG-5 MCG TAB PO SCH (20:29)
[2021-05-01] MEDS: MONTELUKAST 10 MG TAB PO SCH (20:29)
[2021-05-02] MEDS: methylPREDNISolone SOD SUCCI 125 MG/2 ML VIAL IV SCH ×4 (03:02→20:07)
[2021-05-02 06:17] LABS: Glucose,Whole Blood 170 mg/dL (75-99)
[2021-05-02] MEDS: INSULIN ASPART (NovoLOG) 100 UNIT/ML VIAL SQ SCH ×4 (06:36→20:08)
[2021-05-02] MEDS: SODIUM CHLORIDE 0.9% 1,000 ML IV SCH (06:37)
[2021-05-02] MEDS: PANTOPRAZOLE 40 MG TABLET PO SCH (06:37)
[2021-05-02] MEDS: IPRATROPIUM-ALBUTEROL 3 ML NEB INHALATION SCH ×4 (08:37→19:33)
[2021-05-02] MEDS: ENOXAPARIN 40 MG/0.4 ML SYRINGE SQ SCH (09:08)
[2021-05-02] MEDS: PIPERACILLIN-TAZOBACTAM 3.375 GM in SODIUM CHLORIDE 0.9% 100 ML IVPB SCH ×3 (09:08→23:02)
[2021-05-02] MEDS: CHOLECALCIFEROL 25 MCG (1000 IU) TABLET PO SCH (09:09)
[2021-05-02] MEDS: MULTIVITAMINS, THERA 1 EACH TAB PO SCH (09:09)
[2021-05-02] MEDS: HYDROcodone/APAP 10-325MG 1 EACH TAB PO SCH ×4 (09:09→20:07)
[2021-05-02] MEDS: GABAPENTIN 100 MG CAP PO SCH ×3 (09:09→20:08)
[2021-05-02] MEDS: THEOPHYLLINE 24 HOUR 300 MG CAP.ER.24H PO SCH (09:09)
[2021-05-02] MEDS: ASPIRIN 81 MG PO SCH (09:09)
[2021-05-02] MEDS: ALPRAZolam 0.5 MG TAB PO SCH ×3 (09:09→20:08)
[2021-05-02 09:10] LABS: HCT 45.8 % (39.0-53.0); HGB 13.8 gm/dL (13.0-17.5); Hypochromasia Moderate; MCH 29.7 pg (25.0-35.0); MCHC 30.1 g/dL (31.0-37.0); MCV 98.8 fL (80.0-100.0); Macrocytosis Slight; Mean Platelet Volume 7.3; Platelet Count 331 k/uL (150-450); RBC 4.64 m/uL (4.30-5.90); RDW 15.5 % (11.5-15.5); WBC 17.7 k/uL (3.8-10.6)
[2021-05-02 09:24] LABS: ALT 30 U/L (4-49); AST 24 U/L (17-59); African American GFR (CKD) >90 (>60 ml/min/1.73 sqM); Albumin 3.3 g/dL (3.5-5.0); Alkaline Phosphatase 66 U/L (38-126); Blood Urea Nitrogen 43 mg/dL (9-20); Calcium 9.8 mg/dL (8.4-10.2); Chloride 93 mmol/L (98-107); Glucose 155 mg/dL (74-99); Non-African American GFR(CKD) 82 (>60 ml/min/1.73 sqM); Sodium 138 mmol/L (137-145); Total Bilirubin 0.3 mg/dL (0.2-1.3); Total Protein 6.1 g/dL (6.3-8.2)
[2021-05-02 09:32] LABS: Anion Gap 3 mmol/L
[2021-05-02 09:52] LABS: Carbon Dioxide 42 mmol/L (22-30)
[2021-05-02 12:07] LABS: Glucose,Whole Blood 315 mg/dL (75-99)
--- NOTE | 2021-05-02 12:50 | P.PN ---
Subjective Progress Note Date: 05/02/21 Principal diagnosis: Acute exacerbation of COPD, acute bibasilar pneumonia 70-year-old male patient with known history of severe COPD, with chronic hypoxic respiratory failure, an FEV1 of 1.19 L or 37% of predicted, tobacco dependence syndrome, GERD/reflux, esophageal dysphagia, inguinal hernia, who sees Dr. Short in the pulmonary clinic. Patient was recently seen in the office on 04/15/2021 and placed on Levaquin for possibility of left upper lobe pneumonia. At that time patient was complaining of intermittent episodes of cough, wheezing, shortness of breath. His cough is productive with whitish yellowish phlegm. He is on the maintenance dose of prednisone 10 mg daily, is given a prednisone taper, he is on DuoNeb, Singulair, Mucinex 600 mg, Spiriva, and theophylline ER 300 mg twice daily. Patient came into the emergency department brought in by his on 04/30/2021 for evaluation of worsening shortness of breath. Apparently his symptoms started to get worse a few days ago. He completed his antibiotics, he is currently back on prednisone 10 mg daily, no recent fevers, reports a cough with production of yellowish phlegm, chest x-ray shows chronic emphysematous and pulmonary fibrotic changes with new bibasilar acute infiltrate and/or atelectasis. His lab work showed a white blood cell count of 13.7, hemoglobin 14.6, sodium was 139, potassium is 5.1, chloride was 95, CO2 is 36, BUN was 36, creatinine 0.89, lactic acid was 1.2, calcium level was 10.5, magnesium was 2.4, LFTs were within normal limits, troponin was less than 0.012, proBNP was 193, COVID-19 PCR was negative. Patient was afebrile in the emergency department however she is very short of breath, with increased work of breathing. He was placed on BiPAP support with pressures of 12 and 6 and FiO2 at 50%, and his pulse ox is 97%, his breathing is still quite labored, he is very bronchospastic. However he is awake and alert, he is very short of breath to talk, his is at the bedside and providing most of the history. Patient was reevaluated today on 05/01/2021, patient seems to be doing much better today compared to yesterday. Less shortness of breath, less cough, less wheezing. Patient had BiPAP at night, presently back on nasal cannula, high flow with O2 saturation of 96%. Follow-up chest x-ray continues to show patchy basilar density at the right base, noted with evident ration of the right hemidiaphragm. WBC count today is 7.1 hemoglobin is 13.5 twice abnormal renal profile is normal. PCR for COVID-19 is negative. On 05/02/2021 patient seen in follow-up on selective care unit. He is sitting up leaning on the table, in the tripod position, watching a movie on his cell phone, appears to be in no acute distress, he states he is breathing much more comfortably since admission, lung sounds reveal decreased wheezing, still has a mild cough, occasionally, but overall is breathing easier, 5 L of oxygen earlier his pulse ox was 100%, and FiO2 has been cutback to 3 L, his been afebrile overnight, vital signs have been stable, he does get short of breath with exertion, recovers. No complaints of chest discomfort, no hemoptysis, sputum culture has been sent for cultures, Gram stain shows many PMNs, moderate gram- positive cocci in clusters, moderate gram-positive bacilli and few gram-negative bacilli, blood cultures have been negative thus far. Today's labs have been reviewed, his white blood cell count 19.7, hemoglobin is 13.8, sodium is 138, potassium is 5.0, chloride is 93, CO2 is 42, BUN is 43, creatinine 0.94. He remains on antibiotic coverage in the form of azithromycin and Zosyn, he remains on high-dose IV steroids 60 mg every 6 hours and nebulized bronchodilators Objective - Vital Signs Vital signs: Vital Signs Temp 97.6 F 05/02/21 11:20 Pulse 71 05/02/21 11:20 Resp 22 05/02/21 11:20 BP 129/64 05/02/21 11:20 Pulse Ox 100 05/02/21 11:20 Intake & Output 05/01/21 05/02/21 05/02/21 18:59 06:59 18:59 Intake Total 909 431 1361 Output Total 600 1225 Balance 200 100 90 Weight 65.771 kg 67.7 kg Intake: IV 270 .9 @30 270 Intake, IV Titration 325 Amount Piperacillin-Tazobactam 3 100 .375 gm In Sodium Chloride 0.9% 100 ml @ 25 mls/hr IVPB Q8HR [facility] Rx# :[id number] Sodium Chloride 0.9% 1, 225 000 ml @ 100 mls/hr IV . Q10H [facility] Rx#:[id number] Oral 800 100 720 Output: Urine 600 875 Stool 350 Other: Voiding Method Urinal Urinal Urinal # Voids 1 # Bowel Movements 2 - Exam GENERAL EXAM: Alert, 70-year-old white male, very short of breath, sitting in a tripod position leaning over on the bedside table currently on 3 L of oxygen HEAD: Normocephalic/atraumatic. EYES: Normal reaction of pupils, equal size. Conjunctiva pink, sclera white. NOSE: Clear with pink turbinates. THROAT: No erythema or exudates. NECK: No masses, no JVD, no thyroid enlargement, no adenopathy. CHEST: No chest wall deformity. Symmetrical expansion. LUNGS: Equal air entry with diffuse wheezes CVS: Regular rate and rhythm, normal S1 and S2, no gallops, no murmurs, no rubs ABDOMEN: Soft, nontender. No hepatosplenomegaly, normal bowel sounds, no guarding or rigidity. EXTREMITIES: No clubbing, no edema, no cyanosis, 2+ pulses and upper and lower extremities. MUSCULOSKELETAL: Muscle strength and tone normal. SPINE: No scoliosis or deformity SKIN: No rashes CENTRAL NERVOUS SYSTEM: Alert and oriented -3. No focal deficits, tone is normal in all 4 extremities. PSYCHIATRIC: Alert and oriented -3. Appropriate affect. Intact judgment and insight. - Labs CBC & Chem 7: 05/02/21 08:27 05/02/21 08:27 Labs: Abnormal Lab Results - Last 24 Hours (Table) 05/01/21 05/01/21 05/02/21 Range/Units 16:27 20:09 06:14 WBC (3.8-10.6) k/uL MCHC (31.0-37.0) g/dL Chloride (98-107) mmol/L Carbon Dioxide (22-30) mmol/L BUN (9-20) mg/dL Glucose (74-99) mg/dL POC Glucose (mg/dL) 178 H 106 H 170 H (75-99) mg/dL Total Protein (6.3-8.2) g/dL Albumin (3.5-5.0) g/dL 05/02/21 05/02/21 05/02/21 Range/Units 08:27 08:27 12:04 WBC 17.7 H (3.8-10.6) k/uL MCHC 30.1 L (31.0-37.0) g/dL Chloride 93 L (98-107) mmol/L Carbon Dioxide 42 H* (22-30) mmol/L BUN 43 H (9-20) mg/dL Glucose 155 H (74-99) mg/dL POC Glucose (mg/dL) 315 H (75-99) mg/dL Total Protein 6.1 L (6.3-8.2) g/dL Albumin 3.3 L (3.5-5.0) g/dL Microbiology - Last 24 Hours (Table) 05/01/21 00:14 Gram Stain - Preliminary Sputum Sputum Culture - Preliminary 04/30/21 15:00 Blood Culture - Preliminary Blood No Growth after 24 hours 04/30/21 15:15 Blood Culture - Preliminary Blood No Growth after 24 hours Assessment and Plan Plan: Assessment: #1. Acute on chronic hypoxic respiratory failure related to acute bibasilar pne umonia, possibly community acquired. COVID-19 PCR was negative #2. Recent left upper lobe pneumonia, patient was treated with a course of Levaquin which he had completed #3. Severe COPD with a baseline FEV1 37%, on home oxygen #4. Tobacco dependence syndrome #5. Hyperlipidemia #6. Osteoarthritis #7. Previous episode of respiratory failure requiring intubation, and mechanical ventilator support with subsequent tracheostomy, patient was successfully weaned from the vent support, and decannulated in 2018 #8. History of neuropathy #9. Anxiety #10. History of BPH, status post surgery Plan: Patient is breathing easier, FiO2 is down to 3 L Continue on Zosyn and azithromycin Continue IV Solu-Medrol 60 g every 6 hours Continue nebulized bronchodilators Overall clinically improving, no acute events overnight If remains stable and continues to improve may consider discharge home in the next 24 hours I performed a history & physical examination of the patient and discussed their management with my nurse practitioner, Osiris Asencio. I reviewed the nurse practitioner's note and agree with the documented findings and plan of care. Lung sounds are positive for diffuse wheezes throughout the lung lindsay. The findings and the impression was discussed with the patient. I attest to the documentation by the nurse practitioner. Time with Patient: Less than 30
[2021-05-02] MEDS: guaiFENesin 600 MG TABLET.ER PO SCH (15:20)
[2021-05-02] MEDS: AZITHROMYCIN 500 MG in SODIUM CHLORIDE 0.9% 250 ML IVPB SCH (16:04)
[2021-05-02 16:57] LABS: Glucose,Whole Blood 230 mg/dL (75-99)
--- NOTE | 2021-05-02 17:03 | P.PN ---
Subjective Progress Note Date: 05/02/21 Principal diagnosis: Acute on chronic hypoxemic respiratory failure Acute bibasilar pneumonia Severe COPD 70-year-old white male with known history of COPD who came in with 3-4 day history of worsening shortness of breath and dyspnea. Evaluation emergency room did show lobar pneumonia with exacerbation of elements of COPD. The patient is now able to speak but has significant dyspnea and tachypnea. No voiding difficulties. No productive cough stated. No nausea, vomiting or diarrhea. No anginal chest pain stated. Objective - Vital Signs Vital signs: Vital Signs Temp 98.8 F 05/02/21 09:05 Pulse 73 05/02/21 09:05 Resp 22 05/02/21 09:05 BP 123/60 05/02/21 09:05 Pulse Ox 100 05/02/21 09:05 Intake & Output 05/01/21 05/02/21 05/02/21 18:59 06:59 18:59 Intake Total 852 908 6931 Output Total 600 925 Balance 200 100 390 Weight 65.771 kg 67.7 kg Intake: IV 270 .9 @30 270 Intake, IV Titration 325 Amount Piperacillin-Tazobactam 3 100 .375 gm In Sodium Chloride 0.9% 100 ml @ 25 mls/hr IVPB Q8HR N[facility] Rx# :[id number] Sodium Chloride 0.9% 1, 225 000 ml @ 100 mls/hr IV . Q10H N[facility]HA Rx#:[id number] Oral 800 100 720 Output: Urine 600 575 Stool 350 Other: Voiding Method Urinal Urinal Urinal # Voids 3 # Bowel Movements 2 - Exam GENERAL EXAM: Alert, 70-year-old white male, very short of breath, sitting in a tripod position leaning over on the bedside table currently on 3 L of oxygen HEAD: Normocephalic/atraumatic. EYES: Normal reaction of pupils, equal size. Conjunctiva pink, sclera white. NOSE: Clear with pink turbinates. THROAT: No erythema or exudates. NECK: No masses, no JVD, no thyroid enlargement, no adenopathy. CHEST: No chest wall deformity. Symmetrical expansion. LUNGS: Equal air entry with diffuse wheezes CVS: Regular rate and rhythm, normal S1 and S2, no gallops, no murmurs, no rubs ABDOMEN: Soft, nontender. No hepatosplenomegaly, normal bowel sounds, no guarding or rigidity. EXTREMITIES: No clubbing, no edema, no cyanosis, 2+ pulses and upper and lower extremities. MUSCULOSKELETAL: Muscle strength and tone normal. - Labs CBC & Chem 7: 05/02/21 08:27 05/02/21 08:27 Labs: Abnormal Lab Results - Last 24 Hours (Table) 05/01/21 05/01/21 05/01/21 Range/Units 11:49 16:27 20:09 WBC (3.8-10.6) k/uL MCHC (31.0-37.0) g/dL Chloride (98-107) mmol/L Carbon Dioxide (22-30) mmol/L BUN (9-20) mg/dL Glucose (74-99) mg/dL POC Glucose (mg/dL) 145 H 178 H 106 H (75-99) mg/dL Total Protein (6.3-8.2) g/dL Albumin (3.5-5.0) g/dL 05/02/21 05/02/21 05/02/21 Range/Units 06:14 08:27 08:27 WBC 17.7 H (3.8-10.6) k/uL MCHC 30.1 L (31.0-37.0) g/dL Chloride 93 L (98-107) mmol/L Carbon Dioxide 42 H* (22-30) mmol/L BUN 43 H (9-20) mg/dL Glucose 155 H (74-99) mg/dL POC Glucose (mg/dL) 170 H (75-99) mg/dL Total Protein 6.1 L (6.3-8.2) g/dL Albumin 3.3 L (3.5-5.0) g/dL Microbiology - Last 24 Hours (Table) 05/01/21 00:14 Gram Stain - Preliminary Sputum Sputum Culture - Preliminary 04/30/21 15:00 Blood Culture - Preliminary Blood No Growth after 24 hours 04/30/21 15:15 Blood Culture - Preliminary Blood No Growth after 24 hours Assessment and Plan Assessment: 1. Acute on chronic hypoxic respiratory failure; multifactorial; related to pneumonia/severe COPD 2. Left upper lobe pneumonia; currently on IV Levaquin 3. Severe COPD/asthma 4. Hyperlipidemia 5. Restless leg syndrome 6. Vitamin D deficiency Plan: Patient is breathing easier, FiO2 is down to 3 L Continue on Zosyn and azithromycin Continue IV Solu-Medrol 60 g every 6 hours Continue nebulized bronchodilators Overall clinically improving, no acute events overnight DVT prophylaxis; SCDs CODE STATUS; full code
[2021-05-02 19:46] LABS: Glucose,Whole Blood 176 mg/dL (75-99)
[2021-05-02] MEDS: MONTELUKAST 10 MG TAB PO SCH (20:07)
[2021-05-02] MEDS: CALCIUM CARB-VIT D 500 MG-5 MCG TAB PO SCH (20:08)
[2021-05-02] MEDS: ATORVASTATIN 10 MG TAB PO SCH (20:08)
[2021-05-03] MEDS: methylPREDNISolone SOD SUCCI 125 MG/2 ML VIAL IV SCH ×3 (03:19→14:58)
[2021-05-03] MEDS: guaiFENesin 600 MG TABLET.ER PO SCH ×2 (03:19→14:58)
[2021-05-03 05:49] LABS: Glucose,Whole Blood 236 mg/dL (75-99)
[2021-05-03] MEDS: PANTOPRAZOLE 40 MG TABLET PO SCH (06:31)
[2021-05-03] MEDS: INSULIN ASPART (NovoLOG) 100 UNIT/ML VIAL SQ SCH ×3 (06:31→14:58)
[2021-05-03] MEDS: IPRATROPIUM-ALBUTEROL 3 ML NEB INHALATION SCH ×3 (07:52→14:58)
[2021-05-03] MEDS: THEOPHYLLINE 24 HOUR 300 MG CAP.ER.24H PO SCH (09:05)
[2021-05-03] MEDS: CHOLECALCIFEROL 25 MCG (1000 IU) TABLET PO SCH (09:05)
[2021-05-03] MEDS: GABAPENTIN 100 MG CAP PO SCH ×2 (09:05→14:58)
[2021-05-03] MEDS: ENOXAPARIN 40 MG/0.4 ML SYRINGE SQ SCH (09:05)
[2021-05-03] MEDS: ALPRAZolam 0.5 MG TAB PO SCH ×2 (09:05→14:58)
[2021-05-03] MEDS: PIPERACILLIN-TAZOBACTAM 3.375 GM in SODIUM CHLORIDE 0.9% 100 ML IVPB SCH ×2 (09:05→14:58)
[2021-05-03] MEDS: HYDROcodone/APAP 10-325MG 1 EACH TAB PO SCH ×3 (09:06→14:58)
[2021-05-03] MEDS: ASPIRIN 81 MG PO SCH (09:06)
[2021-05-03] MEDS: MULTIVITAMINS, THERA 1 EACH TAB PO SCH (09:06)
[2021-05-03 11:18] VITALS: BP 153/72; RESP 26; TEMP 98
[2021-05-03 11:39] VITALS: PULSE 85
[2021-05-03 11:46] LABS: Glucose,Whole Blood 219 mg/dL (75-99)
--- NOTE | 2021-05-03 13:23 | P.PN ---
Subjective Progress Note Date: 05/03/21 Principal diagnosis: Acute exacerbation of COPD, bibasilar pneumonia 70-year-old male patient with known history of severe COPD, with chronic hypoxic respiratory failure, an FEV1 of 1.19 L or 37% of predicted, tobacco dependence syndrome, GERD/reflux, esophageal dysphagia, inguinal hernia, who sees Dr. Short in the pulmonary clinic. Patient was recently seen in the office on 04/15/2021 and placed on Levaquin for possibility of left upper lobe pneumonia. At that time patient was complaining of intermittent episodes of cough, wheezing, shortness of breath. His cough is productive with whitish yellowish phlegm. He is on the maintenance dose of prednisone 10 mg daily, is given a prednisone taper, he is on DuoNeb, Singulair, Mucinex 600 mg, Spiriva, and theophylline ER 300 mg twice daily. Patient came into the emergency department brought in by his on 04/30/2021 for evaluation of worsening shortness of breath. Apparently his symptoms started to get worse a few days ago. He completed his antibiotics, he is currently back on prednisone 10 mg daily, no recent fevers, reports a cough with production of yellowish phlegm, chest x-ray shows chronic emphysematous and pulmonary fibrotic changes with new bibasilar acute infiltrate and/or atelectasis. His lab work showed a white blood cell count of 13.7, hemoglobin 14.6, sodium was 139, potassium is 5.1, chloride was 95, CO2 is 36, BUN was 36, creatinine 0.89, lactic acid was 1.2, calcium level was 10.5, magnesium was 2.4, LFTs were within normal limits, troponin was less than 0.012, proBNP was 193, COVID-19 PCR was negative. Patient was afebrile in the emergency department however she is very short of breath, with increased work of breathing. He was placed on BiPAP support with pressures of 12 and 6 and FiO2 at 50%, and his pulse ox is 97%, his breathing is still quite labored, he is very bronchospastic. However he is awake and alert, he is very short of breath to talk, his is at the bedside and providing most of the history. Patient was reevaluated today on 05/01/2021, patient seems to be doing much better today compared to yesterday. Less shortness of breath, less cough, less wheezing. Patient had BiPAP at night, presently back on nasal cannula, high flow with O2 saturation of 96%. Follow-up chest x-ray continues to show patchy basilar density at the right base, noted with evident ration of the right hemidiaphragm. WBC count today is 7.1 hemoglobin is 13.5 twice abnormal renal profile is normal. PCR for COVID-19 is negative. On 05/02/2021 patient seen in follow-up on selective care unit. He is sitting up leaning on the table, in the tripod position, watching a movie on his cell phone, appears to be in no acute distress, he states he is breathing much more comfortably since admission, lung sounds reveal decreased wheezing, still has a mild cough, occasionally, but overall is breathing easier, 5 L of oxygen earlier his pulse ox was 100%, and FiO2 has been cutback to 3 L, his been afebrile overnight, vital signs have been stable, he does get short of breath with exertion, recovers. No complaints of chest discomfort, no hemoptysis, sputum culture has been sent for cultures, Gram stain shows many PMNs, moderate gram- positive cocci in clusters, moderate gram-positive bacilli and few gram-negative bacilli, blood cultures have been negative thus far. Today's labs have been reviewed, his white blood cell count 19.7, hemoglobin is 13.8, sodium is 138, potassium is 5.0, chloride is 93, CO2 is 42, BUN is 43, creatinine 0.94. He remains on antibiotic coverage in the form of azithromycin and Zosyn, he remains on high-dose IV steroids 60 mg every 6 hours and nebulized bronchodilators The patient is seen today 05/03/2021 in follow-up on the selective care unit. He is currently sitting up in the bedside. Awake and alert in no acute distress. Denies any worsening shortness of breath, cough or congestion. Feel a bit better today compared to yesterday. He is anxious to go home. He is maintaining O2 saturations in the mid 90s on 3 L/m per nasal cannula. Afebrile. Blood culture reveals no growth to date. Sputum culture positive for gram-negative bacilli. He remains on DuoNeb inhalations, IV Solu-Medrol theophylline. Maintained on antibiotics in the form of Zosyn and azithromycin. Objective - Vital Signs Vital signs: Vital Signs Temp 98.0 F 05/03/21 11:10 Pulse 85 05/03/21 11:38 Resp 26 H 05/03/21 11:10 BP 153/72 05/03/21 11:10 Pulse Ox 96 05/03/21 11:10 Intake & Output 05/02/21 05/03/21 05/03/21 18:59 06:59 18:59 Intake Total 2085 700 Output Total 1675 1275 Balance 410 -575 Weight 68.3 kg Intake: IV 270 360 .9 @30 270 360 Intake, IV Titration 675 100 Amount Azithromycin 500 mg In 250 Sodium Chloride 0.9% 250 ml @ 250 mls/hr IVPB Q24H [facility] Rx#:[id number] Piperacillin-Tazobactam 3 200 100 .375 gm In Sodium Chloride 0.9% 100 ml @ 25 mls/hr IVPB Q8HR [facility] Rx# :[id number] Sodium Chloride 0.9% 1, 225 000 ml @ 100 mls/hr IV . Q10H [facility] Rx#:[id number] Oral 1140 240 Output: Urine 1075 875 Stool 600 400 Other: Voiding Method Urinal Urinal Urinal # Voids 1 1 1 # Bowel Movements 2 3 - Exam GENERAL EXAM: Alert, 70-year-old male,currently on 3 L of oxygen, fairly comfortable in mild respiratory distress HEAD: Normocephalic/atraumatic. EYES: Normal reaction of pupils, equal size. Conjunctiva pink, sclera white. NOSE: Clear with pink turbinates. THROAT: No erythema or exudates. NECK: No masses, no JVD, no thyroid enlargement, no adenopathy. CHEST: No chest wall deformity. Symmetrical expansion. LUNGS: Equal air entry with diffuse wheezes, diminished CVS: Regular rate and rhythm, normal S1 and S2, no gallops, no murmurs, no rubs ABDOMEN: Soft, nontender. No hepatosplenomegaly, normal bowel sounds, no guarding or rigidity. EXTREMITIES: No clubbing, no edema, no cyanosis, 2+ pulses and upper and lower extremities. MUSCULOSKELETAL: Muscle strength and tone normal. SPINE: No scoliosis or deformity SKIN: No rashes CENTRAL NERVOUS SYSTEM: No focal deficits, tone is normal in all 4 extremities. PSYCHIATRIC: Alert and oriented -3. Appropriate affect. Intact judgment and insight. - Labs CBC & Chem 7: 05/02/21 08:27 05/02/21 08:27 Labs: Abnormal Lab Results - Last 24 Hours (Table) 05/02/21 05/02/21 05/03/21 Range/Units 16:53 19:45 05:47 POC Glucose (mg/dL) 230 H 176 H 236 H (75-99) mg/dL 05/03/21 Range/Units 11:44 POC Glucose (mg/dL) 219 H (75-99) mg/dL Microbiology - Last 24 Hours (Table) 05/01/21 00:14 Gram Stain - Preliminary Sputum Sputum Culture - Preliminary Gram Neg Bacilli 04/30/21 15:15 Blood Culture - Preliminary Blood No Growth after 48 hours 04/30/21 15:00 Blood Culture - Preliminary Blood No Growth after 48 hours Assessment and Plan Assessment: 1 Acute on chronic hypoxic respiratory failure related to acute bibasilar pneumonia secondary to gram-negative bacilli. COVID-19 PCR was negative 2 Recent left upper lobe pneumonia, patient was treated with a course of Levaquin which he had completed 3 Severe COPD with a baseline FEV1 37%, on home oxygen 4 Tobacco dependence syndrome 5 Hyperlipidemia 6 Osteoarthritis 7 Previous episode of respiratory failure requiring intubation, and mechanical ventilator support with subsequent tracheostomy, patient was successfully weaned from the vent support, and decannulated in 2018 8 History of neuropathy 9 Anxiety 10 History of BPH, status post surgery Plan: The patient was seen and evaluated by Dr. Sanabria He is cleared for discharge from the pulmonary standpoint Complete a seven-day course of Levaquin Stay on prednisone 40 mg daily until seen by Dr. Sanabria in the office Continue his home oxygen and pulmonary medications I, the cosigning physician, performed a history & physical examination of the patient. Lungs sounds with bilateral end expiratory wheeze, diminished. Maintaining good O2 saturations in the 90s on 3 L/m per nasal cannula. I discussed the assessment and plan of care with my nurse practitioner, Maureen Sheikh. I attest to the above note as dictated by her.
[2021-05-03] MEDS ORDERED: AZITHROMYCIN 500 MG TAB PO SCH (16:00)
--- NOTE | 2021-05-06 12:49 | CDI ---
Documentation Clarification Form Date: 05/06/2021 12:36:00 PM From: Dyan Stephen Admit Date: 04/30/2021 03:08:00 PM Patient Name: Anuj Marcum Visit Number: [id number] Discharge Date: 05/03/2021 03:01:00 PM ATTENTION: The Clinical Documentation Specialists (CDI) and [facility] Coding Staff appreciate your assistance in clarifying documentation. Please respond to the clarification below the line at the bottom and electronically sign. The CDI & [facility] Coding staff will review the response and follow-up if needed. Please note: Queries are made part of the Legal Health Record. If you have any questions, please contact the author of this message via ITS. Dr. Brigitte Victor Acute bibasilac pneumonia secondary to gram negative bacilli is documented by pulmonology in 05/02 PN. Additional clarification regarding the type of pneumonia is requested. Please clarify if patient had a gram negative pneumonia. History/Risk Factors: pneumonia, COPD exacerbation, respiratory failure Clinical Indicators: WBC/Left shift: 13.7 X-ray: New bibasilar acute infiltrate Sputum culture: Stenotrophomonas maltophilia Treatment: Bipap, Prednisone and antibiotics Antibiotics Pippercillin, Azithromycin and discharge home on 7 days Levaquin O2 Nasal Canula and Bipap Please clarify the type of pneumonia, if known: [ ] Gram Negative Bacterial Pneumonia [ ] Other bacteria (please specify) [ ] Other, please specify [ ] Unable to determine Gram Negative Bacterial Pneumonia MTDD
== END 2021-05-03 15:01 | disposition home or self-care (01) | DRG 177 ==
LOC: EC 13:44 → 3SCARD 15:08
PROVIDERS: ADMIT Family Medicine; ATTEND Family Medicine
PROC: 5A09357 Assistance with Respiratory Ventilation, Less than 24 Consecutive Hours, Continuous Positive Airway Pressure (ICD-10-PCS; principal; 2021-04-30)
DX: J15.6 Pneumonia due to other Gram-negative bacteria (principal); J96.21 Acute and chronic respiratory failure with hypoxia; J44.0 Chronic obstructive pulmonary disease with (acute) lower respiratory infection; J44.1 Chronic obstructive pulmonary disease with (acute) exacerbation; M19.90 Unspecified osteoarthritis, unspecified site; G25.81 Restless legs syndrome; H91.90 Unspecified hearing loss, unspecified ear; E55.9 Vitamin D deficiency, unspecified; R56.9 Unspecified convulsions; E78.5 Hyperlipidemia, unspecified; F17.210 Nicotine dependence, cigarettes, uncomplicated; F41.9 Anxiety disorder, unspecified; N40.0 Benign prostatic hyperplasia without lower urinary tract symptoms; Z20.822 Contact with and (suspected) exposure to COVID-19; Z99.81 Dependence on supplemental oxygen; Z79.82 Long term (current) use of aspirin; Z79.899 Other long term (current) drug therapy; Z80.1 Family history of malignant neoplasm of trachea, bronchus and lung; Z90.79 Acquired absence of other genital organ(s); Z98.890 Other specified postprocedural states; Z87.442 Personal history of urinary calculi; Z87.01 Personal history of pneumonia (recurrent); Z89.022 Acquired absence of left finger(s); K21.9 Gastro-esophageal reflux disease without esophagitis
CPT/HCPCS: 36415; 71045; 71046; 80048; 80053; 80198; 83605; 83735; 83880; 84484; 85025; 85027; 85610; 85730; 87040; 87070; 87077; 87186; 87205; 87635; 93005; 94640; 94660; 94760; 96361; 96374; 99291

== ENCOUNTER → 2021-12-09 | Outpatient (CLI) | payer MEDICARE, OTHER ==
--- NOTE | 2021-12-09 21:35 | CT ---
EXAMINATION TYPE: CT chest w con DATE OF EXAM: 12/09/2021 COMPARISON: Multiple chest radiographs most recently dated 12/02/2021 HISTORY: lung nodule CT DLP: 286.90 mGycm. Automated Exposure Control for Dose Reduction was Utilized. TECHNIQUE: Multiple contiguous axial CT images of the chest were obtained with the administration of intravenous contrast. 2-D sagittal and coronal reformatted images were obtained. FINDINGS: Severe upper lobe predominant emphysematous changes. Necrotic appearing left hilar mass, which invades the subsegmental bronchus to the left upper lobe fr om measuring roughly 34 x 43 x 63 mm in the transverse, AP, CC dimensions. There is associated mildly prominent mediastinal lymph nodes most pronounced in the aortic pulmonary window measuring 17 mm in short axis diameter. There is additional mildly prominent right hilar lymph node measuring 10 mm in s hort axis diameter. There is a soft tissue mass along the anterior inferior left pleura and pericardi al reflection, measuring the 8 x 36 x 60 mm in the transverse, AP, CC dimensions. There is an indeterminate 6.5 mm pulmonary nodule right upper lobe. No pleural effusion or pneumothorax. Cardiac size appears within normal limits. No pericardial effusion. Thoracic aorta and main pulmonary arteries are of normal caliber. No axillary lymphadenopathy. Visualized osseous structures appear intact. Moderate multilevel degenerative changes of the thoracic spine with multilevel Schmorl's node formation. Limited visualization of the upper abdomen appears u nremarkable. IMPRESSION: 1. Necrotic appearing left hilar mass invading the subsegmental bronchus to the left upper lobe with associated enlarged mediastinal lymph nodes and right hilar lymph node, as well as additional soft ti ssue mass along the anterior inferior left pleura along the pericardial reflection. Findings concerni ng for primary lung neoplasm with lymph node involvement and metastatic deposit. 2. Indeterminate 6.5 mm right upper lobe pulmonary nodule. Recommend attention on follow-up.
== END | disposition home or self-care (01) ==
LOC: RADCTMAIN 17:29
PROVIDERS: ATTEND Internal Medicine
DX: R91.8 Other nonspecific abnormal finding of lung field (principal); R59.0 Localized enlarged lymph nodes
CPT/HCPCS: 82565; 84520; 71260; 36415; Q9967

== ENCOUNTER 2021-12-26 15:06 | Emergency (ER) | payer MEDICARE, OTHER ==
[2021-12-26 15:16] VITALS: BP 115/65; PULSE 94; RESP 20; TEMP 98.7
--- NOTE | 2021-12-26 16:25 | ED ---
Lower Extremity Injury HPI - General Chief Complaint: Extremity Injury, Lower Stated Complaint: L ankle injury Time Seen by Provider: 12/26/21 16:01 Source: patient, family, RN notes reviewed Mode of arrival: wheelchair Limitations: no limitations - History of Present Illness Initial Comments: Patient presents to the [facility] after stopping the wrong way off a curb earlier today and twisting his left ankle. He is describing inversion type injury. Pain is sharp, exacerbated by attempted ambulation and movement. Patient states she is able to walk but it increased the pain. Pain to the lateral aspect of the ankle, does radiate into the foot minimally. No proximal pain. No procedures. No headache, no fever or chills, no changes in vision or hearing, no sore throat or difficulty with speech, no neck pain, no chest pain or shortness of breath, no abdominal pain, no nausea or vomiting, no changes in urination or bowel mo vements, no numbness or tingling, no skin rashes or lesions. Note that the patient oxygen dependent secondary to COPD. - Related Data Home Medications Medication Instructions Recorded Confirmed ALPRAZolam [Xanax] 0.5 mg PO TID 09/08/18 04/30/21 Atorvastatin [Lipitor] 10 mg PO HS 09/08/18 04/30/21 Gabapentin [Neurontin] 100 mg PO TID 09/08/18 04/30/21 HYDROcodone/APAP 10-325MG [[place] 1 tab PO QID 09/08/18 04/30/21 10-325] Ipratropium-Albuterol Nebulize 3 ml INHALATION RT-QID 09/08/18 04/30/21 [Duoneb 0.5 mg-3 mg/3 ml Soln] Montelukast [Singulair] 10 mg PO HS 09/08/18 04/30/21 Theophylline 12 Hour [Jaskaran-Dur] 300 mg PO BID 09/08/18 04/30/21 diphenhydrAM/PE/DM/ACETAMIN/GG 1 tab PO HS 09/08/18 04/30/21 [Mucinex Fast-Max Day-Nite Cold] rOPINIRole HCL [Requip] 0.5 mg PO HS 09/08/18 04/30/21 Albuterol Sulfate [Proventil Hfa] 2 puff INHALATION RT-QID PRN 11/28/18 04/30/21 Calcium Carbonate [Calcium] 600 mg PO HS 11/28/18 04/30/21 Multivitamins, Thera [Multivitamin 1 tab PO DAILY 11/28/18 04/30/21 (formulary)] Aspirin EC [Ecotrin Low Dose] 81 mg PO DAILY 04/30/21 04/30/21 Cholecalciferol [Vitamin D3 (25 50 mcg PO DAILY 04/30/21 04/30/21 Mcg = 1000 Iu)] Naloxone HCl [Narcan] 4 mg NASAL ONCE PRN 04/30/21 04/30/21 Pantoprazole [Protonix] 40 mg PO DAILY 04/30/21 04/30/21 Previous Rx's Medication Instructions Recorded Levofloxacin [Levaquin] 750 mg PO DAILY 1 Days #7 tab 05/03/21 predniSONE [Deltasone] 40 mg PO DIRECTED 14 Days #30 05/03/21 tab Allergies Allergy/AdvReac Type Severity Reaction Status Date / Time No Known Allergies Allergy Verified 12/26/21 15:15 Review of Systems ROS Statement: Those systems with pertinent positive or pertinent negative responses have been documented in the HPI. ROS Other: All systems not noted in ROS Statement are negative. Past Medical History Past Medical History: COPD, Hearing Disorder / Deafness, Hyperlipidemia, Osteoarthritis (OA), Pneumonia, Prostate Disorder Additional Past Medical History / Comment(s): CHEESH-NA, has hearing aids but does not use them. FREQUENT HOARSENESS, HX PNEUMONIA/VENITLATED/TRACH @ [facility] FROM 06/12/18 TO 06/30/18, THEN TRANSFERED TO REHAB UNIT IN [place] FROM 06/30/18 TO 07/12/18. O2/2L @ NIGHT. RESTLESS LEG. NEUROPATHY. HX BLADDER CALCULI. HAS HAD ONE SEIZURE DURING BRONCHOSCOPY. History of Any Multi-Drug Resistant Organisms: None Reported Past Surgical History: Heart Catheterization, Prostate Surgery Additional Past Surgical History / Comment(s): TURP, RIGHT WRIST BX (SQ CELL). WINIFRED ARTHRO KNEE. TRIGGER FINGER RELEASE BOTH HANDS. AMPUTATION TIP LEFT INDEX FINGER. Tracheotomy. Past Anesthesia/Blood Transfusion Reactions: No Reported Reaction Past Psychological History: Anxiety Smoking Status: Former smoker Past Alcohol Use History: Rare Past Drug Use History: None Reported - Past Family History Mother Family Medical History: Cancer Additional Family Medical History / Comment(s): LUNG Cancer. General Exam Limitations: no limitations General appearance: alert, in no apparent distress Head exam: Present: atraumatic, normocephalic, normal inspection Eye exam: Present: normal appearance, PERRL, EOMI. Absent: scleral icterus, conjunctival injection, periorbital swelling ENT exam: Present: normal exam, mucous membranes moist Neck exam: Present: normal inspection, full ROM. Absent: tenderness, meningismus, lymphadenopathy Respiratory exam: Present: normal lung sounds bilaterally. Absent: respiratory distress, wheezes, rales, rhonchi, stridor, chest wall tenderness, accessory muscle use, decreased breath sounds Cardiovascular Exam: Present: regular rate, normal rhythm, normal heart sounds. Absent: systolic murmur, diastolic murmur, rubs, gallop, clicks GI/Abdominal exam: Present: soft, normal bowel sounds. Absent: distended, tenderness, guarding, rebound, rigid Extremities exam: Present: normal inspection, full ROM, tenderness (Patient tender over the ATF ligament and to a lesser extent the dorsum of the foot. No medial tenderness. Pulses intact. No break in skin integrity.), normal capillary refill, pedal edema (Minimal lateral ankle edema noted). Absent: joint swelling, calf tenderness Back exam: Present: normal inspection Neurological exam: Present: alert, oriented X3, CN II-XII intact Psychiatric exam: Present: normal affect, normal mood Skin exam: Present: warm, dry, intact, normal color. Absent: rash Course Vital Signs 12/26/21 15:11 Temperature 98.7 F Pulse Rate 94 Respiratory 20 Rate Blood Pressure 115/65 O2 Sat by Pulse 92 L Oximetry Procedures - Procedures Initial comment: Left ankle Cosme wrap applied by me. Distal neurovascular status intact both pre- and post-application. Medical Decision Making - Medical Decision Making Patient presents with left ankle pain. Inversion type injury. Able to ambulate. No bony point tenderness. Appears to be soft tissue in nature. X- rays ordered. Patient was told to return to the ER for any signs or symptoms worsen. Told to return immediately if any other problems arise. All questions answered. Treatment plan discussed. Patient in agreement Every effort has been made to ensure accuracy of this dictation. However, due to the limitations of electronic medical records and dictation devices, errors in charting still occur. No acute fracture noted on plane from x-ray. I did review these films myself. Patient retreated conservatively with Cosme wrap, Rice therapy, and follow-up with primary care physician as necessary. Present physician is Dr. Dominguez - Radiology Data Radiology results: report reviewed, image reviewed Disposition Clinical Impression: Sprain of anterior talofibular ligament of left ankle Disposition: HOME SELF-CARE Condition: Good Instructions (If sedation given, give patient instructions): Ankle Sprain (ED) Additional Instructions: Cosme wrap as directed. Rest, ice 20 minutes on and off for times daily, elevation. Patient was told to return to the ER for any signs or symptoms worsen. Told to return immediately if any other problems arise. All questions answered. Treatment plan discussed. Patient in agreement Every effort has been made to ensure accuracy of this dictation. However, due to the limitations of electronic medical records and dictation devices, errors in charting still occur. Is patient prescribed a controlled substance at d/c from ED?: No Referrals: Vinicius Dougherty MD [Primary Care Provider] - 1-2 days Time of Disposition: 16:57
--- NOTE | 2021-12-26 16:46 | XR ---
EXAMINATION TYPE: XR ankle complete LT DATE OF EXAM: 12/26/2021 COMPARISON: NONE HISTORY: Twisted ankle TECHNIQUE: 3 views FINDINGS: I see no fracture nor dislocation. Joint spaces are normal. IMPRESSION: Negative left ankle exam. No fracture seen.
--- NOTE | 2021-12-26 16:47 | XR ---
EXAMINATION TYPE: XR foot complete LT DATE OF EXAM: 12/26/2021 COMPARISON: NONE HISTORY: Pain TECHNIQUE: 3 views FINDINGS: Metatarsals are intact. The toes appear intact. I see no fracture nor dislocation. IMPRESSION: Negative left foot exam. No fracture seen.
== END 2021-12-26 17:33 | disposition home or self-care (01) ==
LOC: EC 15:06
DX: S93.492A Sprain of other ligament of left ankle, initial encounter (principal); J44.9 Chronic obstructive pulmonary disease, unspecified; H91.90 Unspecified hearing loss, unspecified ear; Z87.891 Personal history of nicotine dependence

== ENCOUNTER 2022-01-01 11:44 | Day surgery (SDC) | payer MEDICARE ==
[2021-12-30 13:27] VITALS: BMI 25.1
[~2022-01-01 11:44] MED LIST changes: +ALBUTEROL NEB (CONC) 2.5 MG/0.5 ML INHALATION ONE; -DEXAMETHASONE SOD PHOSPHATE 10 MG/ML 1 ML VIAL IV ONE; -HEPARIN SODIUM,PORCINE 5,000 UNIT/ML 1 ML VIAL SQ ONE; -HYDROmorphone 0.5 MG/0.5 ML SYRINGE IVP PRN; -LIDOCAINE 1% 20 ML VIAL (10MG/ML) FOR IV START INTRADERMA PRN; +LIDOCAINE 2% (PF) 20 MG/ML 5 ML VIAL INHALATION ONE; +LIDOCAINE VISCOUS 300 MG/15 ML CUP MUCOUS MEM ONE; -MIDAZOLAM 2 MG/2 ML VIAL IV PRN; -ONDANSETRON 4 MG/2 ML VIAL IVP ONE; -fentaNYL (PF) 50 MCG/ML 2 ML AMP IV PRN
[2022-01-01] MEDS ORDERED: LIDOCAINE 1% (10MG/ML) FOR IV START INTRADERMA ONE (12:35)
[2022-01-01 12:36] LABS: Glucose,Whole Blood 131 mg/dL (75-99)
[2022-01-01] MEDS ORDERED: PROPOFOL 10 MG/ML 20 ML VIAL IV ONE (12:43)
[2022-01-01] MEDS ORDERED: SUCCINYLCHOLINE CHLORIDE 100 MG/5 ML SYR IV ONE (12:43)
[2022-01-01 13:32] VITALS: TEMP 97.3
--- NOTE | 2022-01-01 13:52 | XR ---
EXAMINATION TYPE: XR chest 1V portable DATE OF EXAM: 01/01/2022 COMPARISON: 05/01/2021 HISTORY: Status post bronchoscopy TECHNIQUE: Single frontal view of the chest is obtained. FINDINGS: Large left hilar mass is seen. Diffuse emphysematous changes with no diagnostic evidence o f pneumothorax. Underlying pulmonary fibrosis suspected. Heart size normal. Atherosclerotic change ao rta. Additional nodular mass by CAT scan the left lung base not as well seen by x-ray. IMPRESSION: No pneumothorax. Large left hilar mass seen with COPD and chronic interstitial lung dise ase.
[2022-01-01] MEDS: LACTATED RINGERS 1,000 ML IV SCH ×2 (14:05→14:17)
[2022-01-01 14:31] VITALS: BP 142/79; PULSE 85; RESP 18
--- NOTE | 2022-01-01 15:50 | OP ---
OPERATIVE REPORT OPERATIVE REPORT: Bronchoscopy, endobronchial biopsy of tumor completely obstructing the left upper lobe and lingula, brushings and washings of endobronchial tumor, left upper lobe bronchus and lingular bronchus. ANESTHESIA USED: Patient was given general anesthesia, intubated by HILDA prior to the procedure. PREOPERATIVE DIAGNOSIS: Left upper lobe mass. POSTOPERATIVE DIAGNOSIS: Endobronchial tumor consistent with bronchogenic carcinoma; highly suspect squamous cell lung cancer. PROCEDURE DESCRIPTION: The patient was placed in supine position. He was intubated by HILDA, connected to mechanical ventilation, and we monitored his O2 saturation continuously. Blood pressure was intermittently monitored and cardiac rhythm was continuously monitored. The patient was calm before we started the procedure. Then we inserted the bronchoscope through the endotracheal tube and advanced all the way to the artemoi. Thorough examination was done of the artemio, right upper lobe, right middle lobe, right lower lobe; no evidence of any endobronchial tumors noted on the right side. However, as I entered the left mainstem bronchus, I was able to visualize a cauliflower tumor totally occluding the left upper lobe bronchus and the lingular bronchus. The tumor was cauliflower in shape, and I was able to do multiple biopsies from the endobronchial tumor in the left upper lobe bronchus. Brushings of the tumor were done and washings, lavage of the tumor was also done. Procedure was well tolerated. No complications. The rest of the left lung was also examined, including the left lower lobe. There was no evidence of any endobronchial tumors in the left lower lobe or any lesions. Procedure was well tolerated. No complications. Awaiting biopsy report from the endobronchial biopsies, brushings and washings/cytology. Procedure was well tolerated. No complications. Blood loss was very minimal. MMODL / IJN: [id number] /
== END 2022-01-01 14:50 | disposition home or self-care (01) ==
LOC: ORWHC2ENDO 11:44
PROVIDERS: ATTEND Internal Medicine
DX: C34.12 Malignant neoplasm of upper lobe, left bronchus or lung (principal); J96.11 Chronic respiratory failure with hypoxia; R04.2 Hemoptysis; E78.00 Pure hypercholesterolemia, unspecified; K21.9 Gastro-esophageal reflux disease without esophagitis; J44.9 Chronic obstructive pulmonary disease, unspecified; Z79.82 Long term (current) use of aspirin; Z79.899 Other long term (current) drug therapy; Z98.890 Other specified postprocedural states
CPT/HCPCS: 88104; 88108; 88305; 88342; 87070; 87205; 87116; 87102; 87077; 87186; 87206; 71045; 31625; 31623; J0330; J2704; 31624

== ENCOUNTER 2022-03-31 21:36 | Inpatient (IN) | payer MEDICARE, OTHER ==
[2022-03-31] MEDS ORDERED: IPRATROPIUM-ALBUTEROL 3 ML NEB INHALATION STA (21:39)
[2022-03-31] MEDS ORDERED: ALBUTEROL NEBULIZED 2.5 MG/3 ML INHALATION STA (21:39)
[2022-03-31] MEDS ORDERED: MAGNESIUM SULFATE-D5W PMX 1 GM in DEXTROSE/WATER 1 100ML.BAG IVPB STA (21:39)
[2022-03-31 22:05] LABS: Anisocytosis Moderate; Basophils % (A) 0 %; Eosinophils % (A) 0 %; HCT 36.9 % (39.0-53.0); HGB 11.1 gm/dL (13.0-17.5); Hypochromasia Moderate; Lymphocytes # (A) 0.7 k/uL (1.0-4.8); Lymphocytes % (A) 8 %; MCH 29.5 pg (25.0-35.0); MCHC 30.2 g/dL (31.0-37.0); MCV 97.7 fL (80.0-100.0); Macrocytosis Moderate; Mean Platelet Volume 7.4; Monocytes # (A) 0.5 k/uL (0-1.0); Monocytes % (A) 6 %; Neutrophils # (A) 6.8 k/uL (1.3-7.7); Neutrophils % (A) 83 %; RBC 3.78 m/uL (4.30-5.90); WBC 8.2 k/uL (3.8-10.6)
[2022-03-31 22:08] LABS: ABG Base Excess 6.1 mmol/L; ABG HCO3 34 mmol/L (21-25); ABG Oxygen Saturation 99.7 % (94-97); ABG PO2 235 mmHg (83-108); ABG TCO2 37 mmol/L (19-24); Allen Test Performed? Yes
--- NOTE | 2022-03-31 22:12 | XR ---
EXAMINATION TYPE: XR chest 1V portable DATE OF EXAM: 03/31/2022 COMPARISON: 03/03/2022 HISTORY: Short of breath TECHNIQUE: Single view FINDINGS: There is extensive coarse interstitial infiltrate throughout the lungs. There is a 6 cm mas slike density at the left pulmonary hilum. Heart size is normal. There is no definite pleural effusio n. No obvious heart failure. There are chest leads. Bony thorax is intact. IMPRESSION: Left hilar mass without much change. There is new pulmonary interstitial and to a lesser extent airspace edema compared to old exam. This could be acute heart failure or developing RDS.
[2022-03-31 22:18] LABS: Platelet Count 408 k/uL (150-450)
[2022-03-31 22:28] LABS: ALT 26 U/L (4-49); AST 25 U/L (17-59); African American GFR (CKD) >90 (>60 ml/min/1.73 sqM); Albumin 3.1 g/dL (3.5-5.0); Alkaline Phosphatase 173 U/L (38-126); Anion Gap 12 mmol/L; Blood Urea Nitrogen 37 mg/dL (9-20); Calcium 9.7 mg/dL (8.4-10.2); Carbon Dioxide 32 mmol/L (22-30); Chloride 96 mmol/L (98-107); Glucose 147 mg/dL (74-99); Magnesium 2.1 mg/dL (1.6-2.3); Non-African American GFR(CKD) 86 (>60 ml/min/1.73 sqM); Potassium 4.8 mmol/L (3.5-5.1); Sodium 140 mmol/L (137-145); Total Bilirubin 0.3 mg/dL (0.2-1.3)
[2022-03-31] MEDS ORDERED: LORazepam 0.5 MG TAB PO PRN (22:30)
[2022-03-31] MEDS ORDERED: HYDROcodone/APAP 5-325MG 1 EACH TAB PO PRN (22:30)
[2022-03-31] MEDS ORDERED: NALOXONE 0.4 MG/ML 1 ML VIAL IV PRN (22:30)
--- NOTE | 2022-03-31 22:30 | ED ---
SOB HPI - General Chief Complaint: Shortness of Breath Stated Complaint: SOB Time Seen by Provider: 03/31/22 21:39 Source: EMS Mode of arrival: EMS - History of Present Illness Initial Comments: Patient complains of shortness of breath. He has a history of COPD. He was given IV steroids prior travel. He is not complaining of any chest or belly or back pain. He has no nausea or vomiting. He has no focal weakness. He has no lightheadedness. His or dizziness. - Related Data Home Medications Medication Instructions Recorded Confirmed ALPRAZolam [Xanax] 0.5 mg PO TID 09/08/18 03/15/22 Atorvastatin [Lipitor] 10 mg PO HS 09/08/18 03/15/22 Gabapentin [Neurontin] 100 mg PO TID 09/08/18 03/15/22 HYDROcodone/APAP 10-325MG [[place] 1 tab PO QID 09/08/18 03/15/22 10-325] Ipratropium-Albuterol Nebulize 3 ml INHALATION QID 09/08/18 03/15/22 [Duoneb 0.5 mg-3 mg/3 ml Soln] Montelukast [Singulair] 10 mg PO HS 09/08/18 03/15/22 Theophylline 12 Hour [Jaskaran-Dur] 300 mg PO BID 09/08/18 03/15/22 diphenhydrAM/PE/DM/ACETAMIN/GG 1 tab PO BID 09/08/18 03/15/22 [Mucinex Fast-Max Day-Nite Cold] rOPINIRole HCL [Requip] 0.5 mg PO HS 09/08/18 03/15/22 Albuterol Sulfate [Proventil Hfa] 2 puff INHALATION QID 11/28/18 03/15/22 Calcium Carbonate [Calcium] 600 mg PO HS 11/28/18 03/15/22 Multivitamins, Thera [Multivitamin 1 tab PO DAILY 11/28/18 03/15/22 (formulary)] Aspirin EC [Ecotrin Low Dose] 81 mg PO DAILY 04/30/21 03/15/22 Cholecalciferol [Vitamin D3 (25 50 mcg PO DAILY 04/30/21 03/15/22 Mcg = 1000 Iu)] Pantoprazole [Protonix] 40 mg PO DAILY 04/30/21 03/15/22 predniSONE [Deltasone] 10 mg PO DAILY 12/30/21 03/15/22 Allergies Allergy/AdvReac Type Severity Reaction Status Date / Time No Known Allergies Allergy Verified 03/31/22 22:27 Review of Systems ROS Statement: Those systems with pertinent positive or pertinent negative responses have been documented in the HPI. ROS Other: All systems not noted in ROS Statement are negative. Past Medical History Past Medical History: COPD, Hearing Disorder / Deafness, Hyperlipidemia, Osteoarthritis (OA), Pneumonia, Prostate Disorder Additional Past Medical History / Comment(s): Hard of hearing, has hearing aids but does not use them. FREQUENT HOARSENESS. HX PNEUMONIA/VENITLATED/TRACH @ [facility] FROM 06/12/18 TO 06/30/18. O2/2L @ NIGHT. RESTLESS LEG. NEUROPATHY. HX BLADDER CALCULI. HX ONE SEIZURE DURING BRONCHOSCOPY. History of Any Multi-Drug Resistant Organisms: None Reported Past Surgical History: Heart Catheterization, Prostate Surgery Additional Past Surgical History / Comment(s): TURP, RIGHT WRIST BIOPSY (SQ CELL). BILATERAL KNEE ARTHROSCOPIES. TRIGGER FINGER RELEASE BILATERAL HANDS. AMPUTATION TIP OF LEFT INDEX FINGER. Tracheotomy. BRONCHOSCOPY. Past Anesthesia/Blood Transfusion Reactions: No Reported Reaction Past Psychological History: Anxiety Smoking Status: Former smoker - Past Family History Mother Family Medical History: Cancer Additional Family Medical History / Comment(s): LUNG Cancer. Father Family Medical History: Cancer General Exam General appearance: alert, in no apparent distress Head exam: Present: atraumatic, normocephalic, normal inspection Eye exam: Present: normal appearance, PERRL, EOMI. Absent: scleral icterus, conjunctival injection, periorbital swelling ENT exam: Present: normal exam, mucous membranes moist Neck exam: Present: normal inspection. Absent: tenderness, meningismus, lymphadenopathy Respiratory exam: Present: respiratory distress, wheezes. Absent: rales, rhonchi, stridor Cardiovascular Exam: Present: regular rate, normal rhythm, normal heart sounds. Absent: systolic murmur, diastolic murmur, rubs, gallop, clicks GI/Abdominal exam: Present: soft, normal bowel sounds. Absent: distended, tenderness, guarding, rebound, rigid Extremities exam: Present: normal inspection, full ROM, normal capillary refill. Absent: tenderness, pedal edema, joint swelling, calf tenderness Back exam: Present: normal inspection Neurological exam: Present: alert, oriented X3, CN II-XII intact Psychiatric exam: Present: normal affect, normal mood Skin exam: Present: warm, dry, intact, normal color. Absent: rash Course Vital Signs 03/31/22 03/31/22 03/31/22 21:38 21:58 22:19 Temperature 97.6 F Pulse Rate 116 H Respiratory 26 H 22 Rate Blood Pressure 175/94 O2 Sat by Pulse 96 Oximetry Fraction of 80 Inspired Oxygen (FIO2) Medical Decision Making - Medical Decision Making Patient presents with shortness of breath. He has COPD. He is placed on BiPAP. He will be admitted to the hospital. - Lab Data Result diagrams: 03/31/22 21:42 03/31/22 21:42 Lab Results 03/31/22 03/31/22 Range/Units 21:42 21:42 WBC 8.2 (3.8-10.6) k/uL RBC 3.78 L (4.30-5.90) m/uL Hgb 11.1 L (13.0-17.5) gm/dL Hct 36.9 L (39.0-53.0) % MCV 97.7 (80.0-100.0) fL MCH 29.5 (25.0-35.0) pg MCHC 30.2 L (31.0-37.0) g/dL RDW 20.0 H (11.5-15.5) % Plt Count 408 D (150-450) k/uL MPV 7.4 Neutrophils % 83 % Lymphocytes % 8 % Monocytes % 6 % Eosinophils % 0 % Basophils % 0 % Neutrophils # 6.8 (1.3-7.7) k/uL Lymphocytes # 0.7 L (1.0-4.8) k/uL Monocytes # 0.5 (0-1.0) k/uL Eosinophils # 0.0 (0-0.7) k/uL Basophils # 0.0 (0-0.2) k/uL Hypochromasia Moderate Anisocytosis Moderate Macrocytosis Moderate Sodium 140 (137-145) mmol/L Potassium 4.8 (3.5-5.1) mmol/L Chloride 96 L (98-107) mmol/L Carbon Dioxide 32 H (22-30) mmol/L Anion Gap 12 mmol/L BUN 37 H (9-20) mg/dL Creatinine 0.87 (0.66-1.25) mg/dL Est GFR (CKD-EPI)AfAm >90 (>60 ml/min/1.73 sqM) Est GFR (CKD-EPI)NonAf 86 (>60 ml/min/1.73 sqM) Glucose 147 H (74-99) mg/dL Calcium 9.7 (8.4-10.2) mg/dL Magnesium 2.1 (1.6-2.3) mg/dL Total Bilirubin 0.3 (0.2-1.3) mg/dL AST 25 (17-59) U/L ALT 26 (4-49) U/L Alkaline Phosphatase 173 H (38-126) U/L Total Protein 6.0 L (6.3-8.2) g/dL Albumin 3.1 L (3.5-5.0) g/dL 03/31/22 22:29 Twelve-lead EKG shows ventricular rate 114 bpm, normal TN interval, no ST elevation or depression, interpreted by me as sinus tachycardia. Critical Care Time Critical Care Time: Yes (Initiation of BiPAP) Total Critical Care Time: 35 Disposition Clinical Impression: COPD (chronic obstructive pulmonary disease) Disposition: ADMITTED IP TO THIS HOSP Condition: Fair Is patient prescribed a controlled substance at d/c from ED?: No Referrals: Vinicius Dougherty MD [Primary Care Provider] - 1-2 days
[2022-03-31 22:40] LABS: Partial Thromboplastin Time 25.3 sec (22.0-30.0); Prothrombin Time 10.6 sec (9.0-12.0)
[2022-03-31 22:53] LABS: ABG PH 7.18 (7.35-7.45)
[2022-03-31 22:54] LABS: ABG PCO2 92 mmHg (35-45)
[2022-03-31] MEDS ORDERED: TEMAZEPAM 7.5 MG CAP PO PRN (23:00)
[2022-04-01] MEDS: GABAPENTIN 300 MG CAP PO SCH ×4 (00:41→21:21)
[2022-04-01] MEDS: ATORVASTATIN 10 MG TAB PO SCH ×2 (00:42→21:20)
[2022-04-01] MEDS: MONTELUKAST 10 MG TAB PO SCH ×2 (00:42→21:21)
[2022-04-01] MEDS ORDERED: FUROSEMIDE 10 MG/ML 4 ML VIAL IV STA (01:00)
[2022-04-01] MEDS: LATANOPROST 0.005% OPHTH DROPS 2.5 ML BTL BOTH EYES SCH ×2 (01:26→21:20)
[2022-04-01 02:33] LABS: ABG Base Excess 6.1 mmol/L; ABG HCO3 35 mmol/L (21-25); ABG Oxygen Saturation 95.8 % (94-97); ABG PO2 97 mmHg (83-108); ABG TCO2 39 mmol/L (19-24); Allen Test Performed? Yes
[2022-04-01 02:41] LABS: ABG PCO2 109 mmHg (35-45); ABG PH 7.12 (7.35-7.45)
[2022-04-01] MEDS ORDERED: propofoL 100 ML IV ONE (03:17)
[2022-04-01] MEDS ORDERED: NOREPINEPHRIN 4 MG-0.9% NS PMX 4 MG/250 ML ML IV ONE (03:31)
[2022-04-01] MEDS: NOREPINEPHRINE 4 MG in SODIUM CHLORIDE 0.9% 250 ML IV SCH ×4 (03:58→20:34)
[2022-04-01 04:04] LABS: Glucose,Whole Blood 231 mg/dL (70-110)
--- NOTE | 2022-04-01 04:07 | XR ---
EXAMINATION TYPE: XR chest 1V portable DATE OF EXAM: 04/01/2022 COMPARISON: Yesterday HISTORY: Short of breath. Respiratory failure. TECHNIQUE: Single view FINDINGS: The endotracheal tube is 5.5 cm from the artemio. There is 6 cm masslike density at the left pulmonary hilum is coarse interstitial density in the lungs. There is flattening of the diaphragm. T here is some mild airspace infiltrate at the lung bases. IMPRESSION: COPD. Pulmonary interstitial fibrosis. Infiltrates at the lung bases appear slightly impr amy compared to yesterday.
[2022-04-01 04:54] LABS: Appearance,Urine Cloudy (Clear); Bilirubin,Urine Negative (Negative); Blood,Urine Moderate (Negative); Color,Urine Yellow; Glucose,Urine (UA) Negative (Negative); Hyaline Casts,Urine 8 /lpf (0-2); Ketones,Urine Negative (Negative); Leukocyte Esterase,Urine Negative (Negative); Mucus,Urine Few /hpf; Nitrite,Urine Negative (Negative); PH, Urine 5.5 (5.0-8.0); Protein,Urine 1+ (Negative); RBC,Urine 4 /hpf (0-5); Specific Gravity,Urine 1.022 (1.001-1.035); Squamous Epithelial Cell,Urine <1 /hpf (0-4); Urobilinogen,Urine <2.0 mg/dL (<2.0); WBC,Urine 3 /hpf (0-5)
[2022-04-01 05:21] LABS: ABG Base Excess 5.6 mmol/L; ABG HCO3 32 mmol/L (21-25); ABG PCO2 62 mmHg (35-45); ABG PH 7.32 (7.35-7.45); ABG PO2 299 mmHg (83-108); ABG TCO2 34 mmol/L (19-24); Allen Test Performed? Yes
[2022-04-01] MEDS ORDERED: SODIUM CHLORIDE 0.9% 1,000 ML IV ONE ×2 (05:27→07:22)
[2022-04-01] MEDS: SODIUM CHLORIDE 0.9% 1,000 ML IV SCH ×3 (05:43→21:23)
--- NOTE | 2022-04-01 05:54 | XR ---
EXAMINATION TYPE: XR chest 1V confirm line [facility] DATE OF EXAM: 04/01/2022 COMPARISON: 2 hours ago HISTORY: Respiratory failure TECHNIQUE: FINDINGS: Endotracheal tube is 6 cm from the artemio. There is masslike density left pulmonary hilum. There is some mild infiltrate left lower lobe. There is pulmonary hyperinflation and flattening of th e diaphragm. There is interstitial coarse density in both lower lobes. There is nasogastric tube in t he stomach. IMPRESSION: NG tube in the stomach. Pulmonary infiltrates without change. COPD.
[2022-04-01] MEDS ORDERED: DEXTROSE 50% SYRINGE 50 ML IVP PRN (07:15)
[2022-04-01] MEDS: IPRATROPIUM 0.5 MG/2.5 ML NEBU INHALATION SCH ×5 (07:24→19:17)
[2022-04-01] MEDS: IPRATROPIUM-ALBUTEROL 3 ML NEB INHALATION SCH ×4 (07:31→19:17)
--- NOTE | 2022-04-01 07:37 | P.HPIM ---
History of Present Illness This is a pleasant 71 years old male with past medical history of COPD, Hearing Disorder / Deafness, Hyperlipidemia, Osteoarthritis, lung cancer diagnosed on 11/2021. Patient presents because of dyspnea. Patient currently is been intubated in the ICU and information were obtained from staff, records and family at bedside both and daughter. As per family patient has been having difficulty breathing all the time and yesterday evening around 10 PM started getting worse so he decided to come to emergency room. Patient has not been eating well for the last 2 days he was feeling food stuck in his throat. patient has chronic cough and creamy phlegm. He had chest pain only with coughing. Yesterday was getting into the bathroom when he felt so weak and he had to light on the floor on his knees. Also patient has been complaining of from diarrhea over the last 2 days with 3-4 puffs per day. No vomiting. History of getting chemo and radiotherapy last dose was less than a week ago for his left lung cancer. They think his oncologist is Dr. arauz and radiation oncologist is Dr. Patricia. 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 Short, and he is on 2 L oxygen via nasal cannula He came through the emergency room and the floor he got worse and acidotic, eventually he was intubated at to the ICU. He got one bolus of normal saline 1000 mL. Distal have low urine output. Review of Systems ROS unobtainable: due to endotracheal tube Past Medical History Past Medical History: Cancer, COPD, Hearing Disorder / Deafness, Hyperlipidemia, Osteoarthritis (OA), Pneumonia, Prostate Disorder Additional Past Medical History / Comment(s): Hard of hearing, has hearing aids but does not use them. FREQUENT HOARSENESS. HX PNEUMONIA/VENITLATED/TRACH @ [facility] FROM 06/12/18 TO 06/30/18. O2/2L @ NIGHT. RESTLESS LEG. NEUROPATHY. HX BLADDER CALCULI. HX ONE SEIZURE DURING BRONCHOSCOPY. LUNG CA 11/2021. History of Any Multi-Drug Resistant Organisms: None Reported Past Surgical History: Heart Catheterization, Prostate Surgery Additional Past Surgical History / Comment(s): TURP, RIGHT WRIST BIOPSY (SQ CELL). BILATERAL KNEE ARTHROSCOPIES. TRIGGER FINGER RELEASE BILATERAL HANDS. AMPUTATION TIP OF LEFT INDEX FINGER. Tracheotomy. BRONCHOSCOPY. Past Anesthesia/Blood Transfusion Reactions: No Reported Reaction Past Psychological History: Anxiety Smoking Status: Former smoker Past Alcohol Use History: Rare Additional Past Alcohol Use History / Comment(s): QUIT SMOKING February 2021. SMOKED 1/2 PPD FOR 50+ YEARS. Past Drug Use History: None Reported - Past Family History Mother Family Medical History: Cancer Additional Family Medical History / Comment(s): LUNG Cancer. Father Family Medical History: Cancer Medications and Allergies Home Medications Medication Instructions Recorded Confirmed Type ALPRAZolam [Xanax] 0.5 mg PO TID 09/08/18 03/31/22 History Atorvastatin [Lipitor] 10 mg PO HS 09/08/18 03/31/22 History HYDROcodone/APAP 10-325MG [[place] 1 tab PO QID 09/08/18 03/31/22 History 10-325] Ipratropium-Albuterol Nebulize 3 ml INHALATION RT-QID 09/08/18 03/31/22 History [Duoneb 0.5 mg-3 mg/3 ml Soln] Montelukast [Singulair] 10 mg PO HS 09/08/18 03/31/22 History Theophylline 12 Hour [Jaskaran-Dur] 300 mg PO BID 09/08/18 03/31/22 History rOPINIRole HCL [Requip] 0.5 mg PO HS 09/08/18 03/31/22 History Calcium Carbonate [Calcium] 600 mg PO HS 11/28/18 03/31/22 History Multivitamins, Thera [Multivitamin 1 tab PO DAILY 11/28/18 03/31/22 History (formulary)] Aspirin EC [Ecotrin Low Dose] 81 mg PO DAILY 04/30/21 03/31/22 History Cholecalciferol [Vitamin D3 (25 50 mcg PO DAILY 04/30/21 03/31/22 History Mcg = 1000 Iu)] Pantoprazole [Protonix] 40 mg PO DAILY 04/30/21 03/31/22 History Albuterol Sulfate [Albuterol 2 puff PO RT-Q6H PRN 03/31/22 03/31/22 History Sulfate Hfa] Dm/Acetaminophen/Doxylamine [Vicks 30 ml PO HS 03/31/22 03/31/22 History Nyquil Cold-Flu Liquid] Fluticasone/Umeclidin/Vilanter 1 puff INHALATION RT-DAILY 08/17/22 08/17/22 History [Trelegy Ellipta 200-62.5-25] Gabapentin [Neurontin] 300 mg PO TID 03/31/22 03/31/22 History Latanoprost/Pf [Latanoprost 0.005% 1 drop BOTH EYES HS 03/31/22 03/31/22 History Eye Drop] guaiFENesin 400 mg PO BID 03/31/22 03/31/22 History predniSONE 10 mg PO DAILY 03/31/22 03/31/22 History Allergies Allergy/AdvReac Type Severity Reaction Status Date / Time No Known Allergies Allergy Verified 03/31/22 22:27 Physical Exam Vitals: Vital Signs Temp Pulse Pulse Resp BP BP Pulse Ox 04/01/22 06:00 75 20 107/55 97 04/01/22 05:45 73 20 143/75 92 L 04/01/22 05:30 60 20 120/73 98 04/01/22 05:23 04/01/22 05:15 65 20 111/65 98 04/01/22 05:00 68 20 94/50 97 04/01/22 04:49 04/01/22 04:45 76 20 89/57 97 04/01/22 04:30 86 17 98/88 89 L 04/01/22 04:15 84 20 84/57 04/01/22 04:00 98.1 F 88 16 89/59 99 04/01/22 03:45 87 14 58/46 96 04/01/22 03:30 79 20 60/27 95 04/01/22 03:25 04/01/22 03:20 04/01/22 03:18 34 H 04/01/22 02:30 96 04/01/22 02:00 35 H 04/01/22 00:55 04/01/22 00:00 98.1 F 100 35 H 135/77 92 L 03/31/22 23:57 98.1 F 104 H 40 H 143/86 90 L 03/31/22 23:50 98.2 F 92 40 H 143/86 91 L 03/31/22 23:41 03/31/22 22:30 03/31/22 22:19 22 03/31/22 21:45 03/31/22 21:38 97.6 F 116 H 26 H 175/94 96 FiO2 04/01/22 06:00 04/01/22 05:45 04/01/22 05:30 04/01/22 05:23 40 04/01/22 05:15 04/01/22 05:00 04/01/22 04:49 100 04/01/22 04:45 70 04/01/22 04:30 04/01/22 04:15 04/01/22 04:00 04/01/22 03:45 04/01/22 03:30 04/01/22 03:25 100 04/01/22 03:20 100 04/01/22 03:18 04/01/22 02:30 50 04/01/22 02:00 04/01/22 00:55 50 04/01/22 00:00 03/31/22 23:57 03/31/22 23:50 03/31/22 23:41 45 03/31/22 22:30 50 03/31/22 22:19 03/31/22 21:45 80 03/31/22 21:38 Intake and Output 03/31/22 03/31/22 04/01/22 14:59 22:59 06:59 Intake Total 1298.431 Output Total 200 Balance 1098.431 Intake: IV 1151 0.9 kvo 20 Sodium Chloride 0.9% 1, 125 000 ml @ 125 mls/hr IV . Q8H [facility] Rx#:[id number] Sodium Chloride 0.9% 1, 1000 000 ml @ 999 mls/hr IV . Q1H1M [facility] Rx#:[id number] pressure bag 6 Intake, IV Titration 147.431 Amount Norepinephrine 4 mg In 117.733 Sodium Chloride 0.9% 250 ml @ 0.05 MCG/KG/MIN 12. 961 mls/hr IV .[id number] [facility] Rx#:[id number] propofoL 1,000 mg In 29.698 Empty Bag 1 bag @ 5 MCG/ KG/MIN 2.041 mls/hr IV . Q24H [facility] Rx#:[id number] Output: Urine 200 Other: Voiding Method Indwelling Catheter Weight 68.039 kg 68.039 kg ABP, PAP, CO, CI - Last 8 Hours Arterial Blood Pressure 133/71 Arterial Blood Pressure 112/62 Arterial Blood Pressure 124/71 Arterial Blood Pressure 109/70 Arterial Blood Pressure 107/64 Arterial Blood Pressure 85/53 Arterial Blood Pressure 97/52 Arterial Blood Pressure 83/50 Arterial Blood Pressure 145/70 Arterial Blood Pressure 87/46 -GENERAL: The patient is alert intubated and sedated HEENT: Pupils are round and equally reacting to light. EOMI. No scleral icterus. No conjunctival pallor. Normocephalic, atraumatic. No pharyngeal erythema. No th yromegaly. CARDIOVASCULAR: S1 and S2 present. No murmurs, rubs, or gallops. PULMONARY: Chest is clear to auscultation, no wheezing or crackles. Decreased air entry bilaterally ABDOMEN: Soft, nontender, nondistended, normoactive bowel sounds. No palpable organomegaly. MUSCULOSKELETAL: No joint swelling or deformity. EXTREMITIES: No cyanosis, clubbing, or pedal edema. NEUROLOGICAL: Gross neurological examination did not reveal any focal deficits. SKIN: No rashes. no petechiae. Results CBC & Chem 7: 03/31/22 21:42 03/31/22 21:42 Labs: Abnormal Lab Results - Last 24 Hours (Table) 03/31/22 03/31/22 03/31/22 Range/Units 21:42 21:42 21:42 RBC 3.78 L (4.30-5.90) m/uL Hgb 11.1 L (13.0-17.5) gm/dL Hct 36.9 L (39.0-53.0) % MCHC 30.2 L (31.0-37.0) g/dL RDW 20.0 H (11.5-15.5) % Lymphocytes # 0.7 L (1.0-4.8) k/uL ABG pH (7.35-7.45) ABG pCO2 (35-45) mmHg ABG pO2 (83-108) mmHg ABG HCO3 (21-25) mmol/L ABG Total CO2 (19-24) mmol/L ABG O2 Saturation (94-97) % Chloride 96 L (98-107) mmol/L Carbon Dioxide 32 H (22-30) mmol/L BUN 37 H (9-20) mg/dL Glucose 147 H (74-99) mg/dL POC Glucose (mg/dL) (70-110) mg/dL Alkaline Phosphatase 173 H (38-126) U/L Troponin I 0.083 H* (0.000-0.034) ng/mL Total Protein 6.0 L (6.3-8.2) g/dL Albumin 3.1 L (3.5-5.0) g/dL Urine Protein (Negative) Urine Blood (Negative) Hyaline Casts (0-2) /lpf Urine Mucus (None) /hpf 03/31/22 04/01/22 04/01/22 Range/Units 22:04 00:35 00:35 RBC (4.30-5.90) m/uL Hgb (13.0-17.5) gm/dL Hct (39.0-53.0) % MCHC (31.0-37.0) g/dL RDW (11.5-15.5) % Lymphocytes # (1.0-4.8) k/uL ABG pH 7.18 L* 7.12 L* (7.35-7.45) ABG pCO2 92 H* 109 H* (35-45) mmHg ABG pO2 235 H (83-108) mmHg ABG HCO3 34 H 35 H (21-25) mmol/L ABG Total CO2 37 H 39 H (19-24) mmol/L ABG O2 Saturation 99.7 H (94-97) % Chloride (98-107) mmol/L Carbon Dioxide (22-30) mmol/L BUN (9-20) mg/dL Glucose (74-99) mg/dL POC Glucose (mg/dL) (70-110) mg/dL Alkaline Phosphatase (38-126) U/L Troponin I 0.093 H* (0.000-0.034) ng/mL Total Protein (6.3-8.2) g/dL Albumin (3.5-5.0) g/dL Urine Protein (Negative) Urine Blood (Negative) Hyaline Casts (0-2) /lpf Urine Mucus (None) /hpf 04/01/22 04/01/22 04/01/22 Range/Units 04:03 04:40 05:15 RBC (4.30-5.90) m/uL Hgb (13.0-17.5) gm/dL Hct (39.0-53.0) % MCHC (31.0-37.0) g/dL RDW (11.5-15.5) % Lymphocytes # (1.0-4.8) k/uL ABG pH 7.32 L (7.35-7.45) ABG pCO2 62 H (35-45) mmHg ABG pO2 299 H (83-108) mmHg ABG HCO3 32 H (21-25) mmol/L ABG Total CO2 34 H (19-24) mmol/L ABG O2 Saturation 100.0 H (94-97) % Chloride (98-107) mmol/L Carbon Dioxide (22-30) mmol/L BUN (9-20) mg/dL Glucose (74-99) mg/dL POC Glucose (mg/dL) 231 H (70-110) mg/dL Alkaline Phosphatase (38-126) U/L Troponin I (0.000-0.034) ng/mL Total Protein (6.3-8.2) g/dL Albumin (3.5-5.0) g/dL Urine Protein 1+ H (Negative) Urine Blood Moderate H (Negative) Hyaline Casts 8 H (0-2) /lpf Urine Mucus Few H (None) /hpf Thrombosis Risk Factor Assmnt - Choose All That Apply Any of the Below Risk Factors Present?: Yes Each Factor Represents 1 point: Abnormal pulmonary function (COPD) Each Risk Factor Represents 2 Points: Age 61-74 years Thrombosis Risk Factor Assessment Total Risk Factor Score: 3 Thrombosis Risk Factor Assessment Level: Moderate Risk Assessment and Plan Assessment: Acute COPD exacerbation Left hilar mass consistent with his history of lung cancer since 11/2021 Acute hypoxic hypercapnic respiratory failure chronic hypoxic respiratory failure Left Lung cancer, undergoing chemoradiotherapy Hearing difficulty Hyperlipidemia Osteoarthritis Elevated troponin, rule out cardiac causes Plan: This is a pleasant 71 years old male who presents with severe acute COPD exacerb ations with worsening hypoxia. Continue with intubation and mechanical ventilation pulmonary/critical care unit Continue with steroids and bronchodilators. He was started on Solu-Medrol 60 mg every 6 hours Pulmonary consult Patient will need swallow evaluation when he is extubated Cardiology consult. Continue with normal saline infusion. Bronchodilator. Check pro-calcitonin Give one bolus of normal saline and monitor input and output Labs and medication were reviewed.. Continue same treatment. Continue with symptomatic treatment. Resume home medication. Monitor lytes and vitals. DVT and GI prophylaxis. Further recommendations as per clinical course of the patient DVT prophylaxis: Subcutaneous heparin GI Prophylaxis: Ppi Prognosis is guarded
[2022-04-01] MEDS ORDERED: methylPREDNISolone SOD SUCCI 125 MG/2 ML VIAL IV SCH (07:45)
[2022-04-01] MEDS ORDERED: SYMBICORT 80-4.5 MCG INHALER INHALATION SCH (08:00)
[2022-04-01] MEDS: MULTIVITAMINS, THERA 1 EACH TAB PO SCH (08:35)
[2022-04-01] MEDS: CHOLECALCIFEROL 25 MCG (1000 IU) TABLET PO SCH (08:35)
[2022-04-01] MEDS: ASPIRIN 81 MG PO SCH (08:35)
[2022-04-01] MEDS: HEPARIN SODIUM,PORCINE/PF 5,000 UNIT/0.5 ML SYRINGE SQ SCH ×2 (08:35→21:21)
[2022-04-01] MEDS: CHLORHEXIDINE GLUCONATE 15 ML CUP MUCOUS MEM SCH ×2 (08:35→21:20)
[2022-04-01 08:39] LABS: Glucose,Whole Blood 242 mg/dL (70-110)
[2022-04-01] MEDS: PIPERACILLIN-TAZOBACTAM 3.375 GM in SODIUM CHLORIDE 0.9% 100 ML IVPB SCH ×3 (08:52→23:41)
[2022-04-01] MEDS ORDERED: predniSONE 10 MG TAB PO SCH (09:00)
[2022-04-01] MEDS ORDERED: GABAPENTIN 300 MG CAP PO SCH (09:00)
[2022-04-01] MEDS ORDERED: PANTOPRAZOLE 40 MG TABLET PO SCH (09:00)
[2022-04-01] MEDS ORDERED: LORazepam 2 MG/ML INJ IV PRN (09:09)
[2022-04-01] MEDS: DEXMEDETOMIDINE/0.9% NACL(PMX) 400 MCG in EMPTY BAG 1 BAG IV SCH (09:23)
[2022-04-01] MEDS: GUAIFENESIN 400 MG PO SCH ×2 (09:29→20:03)
[2022-04-01] MEDS: INSULIN ASPART (NovoLOG) 100 UNIT/ML VIAL SQ SCH ×5 (09:33→23:41)
--- NOTE | 2022-04-01 10:24 | P.CNPUL ---
History of Present Illness Consult date: 04/01/22 Requesting physician: Dinesh E Sheet Reason for consult: COPD, other (Respiratory failure) Chief complaint: Shortness of breath History of present illness: This is a 71-year-old white male with chronic hypoxic and hypercapnic respiratory failure severe end-stage COPD, previous history of respiratory failure requiring intubation and mechanical ventilation history of non-small cell lung cancer diagnosed back in December of 2021. Patient presented to the hospital with 2 days history of increased shortness of breath, associated with cough, some wheezing, patient is normally maintained on oxygen and on prednisone as well as theophylline and many other bronchodilators. Has been very compliant with his medications. Admitted through the emergency room with acute on chronic hypoxic and hypercapnic respiratory failure patient was placed on relatively high FiO2 and BiPAP. Condition deteriorated and the patient went on to develop worsening hypercapnic respiratory failure requiring transfer to the ICU, intubation, mechanical ventilation, and I'm seeing him today on consultation. Patient is sedated, he is on propofol. His ventilator settings are assist control rate of 20, volume 450 FiO2 35% and PEEP of 5 ABG earlier on 70% showed a pO2 of 299 pCO2 of 62 pH of 7.32. Patient is on propofol at 50 mcg/kg/m, 0.9 normal saline at 1 25 mL per hour, norepinephrine at 0.4 mcg/kg/m. Patient did receive fluid boluses yesterday, today antibiotics were added and sputum cultures are pending. Patient will be placed empirically on Zosyn. Chest x-ray showed evidence of mass in the left pulmonary hilar area which is basically his original bronchogenic carcinoma minimal infiltrate in the left lower lobe and there is hyperinflation as well as coarse interstitial densities in both lower lobes. Nasogastric tube was noted to be in the proper position endotracheal tube in the proper position. Family is at bedside, updated the family on his condition, and we will likely give the patient a trial of weaning however the patient is known to have significant history of anxiety and I will try to use Precedex, pressure support mode of mechanical ventilation with a pressure support of 12 and CPAP after taking the patient off propofol if possible. Review of Systems ROS unobtainable: due to endotracheal tube Past Medical History Past Medical History: Cancer, COPD, Hearing Disorder / Deafness, Hyperlipidemia, Osteoarthritis (OA), Pneumonia, Prostate Disorder Additional Past Medical History / Comment(s): Hard of hearing, has hearing aids but does not use them. FREQUENT HOARSENESS. HX PNEUMONIA/VENITLATED/TRACH @ [facility] FROM 06/12/18 TO 06/30/18. O2/2L @ NIGHT. RESTLESS LEG. NEUROPATHY. HX BLADDER CALCULI. HX ONE SEIZURE DURING BRONCHOSCOPY. LUNG CA 11/2021. History of Any Multi-Drug Resistant Organisms: None Reported Past Surgical History: Heart Catheterization, Prostate Surgery Additional Past Surgical History / Comment(s): TURP, RIGHT WRIST BIOPSY (SQ CELL). BILATERAL KNEE ARTHROSCOPIES. TRIGGER FINGER RELEASE BILATERAL HANDS. AMPUTATION TIP OF LEFT INDEX FINGER. Tracheotomy. BRONCHOSCOPY. Past Anesthesia/Blood Transfusion Reactions: No Reported Reaction Past Psychological History: Anxiety Smoking Status: Former smoker Past Alcohol Use History: Rare Additional Past Alcohol Use History / Comment(s): QUIT SMOKING February 2021. SMOKED 1/2 PPD FOR 50+ YEARS. Past Drug Use History: None Reported - Past Family History Mother Family Medical History: Cancer Additional Family Medical History / Comment(s): LUNG Cancer. Father Family Medical History: Cancer Medications and Allergies Home Medications Medication Instructions Recorded Confirmed Type ALPRAZolam [Xanax] 0.5 mg PO TID 09/08/18 03/31/22 History Atorvastatin [Lipitor] 10 mg PO HS 09/08/18 03/31/22 History HYDROcodone/APAP 10-325MG [[place] 1 tab PO QID 09/08/18 03/31/22 History 10-325] Ipratropium-Albuterol Nebulize 3 ml INHALATION RT-QID 09/08/18 03/31/22 History [Duoneb 0.5 mg-3 mg/3 ml Soln] Montelukast [Singulair] 10 mg PO HS 09/08/18 03/31/22 History Theophylline 12 Hour [Jaskaran-Dur] 300 mg PO BID 09/08/18 03/31/22 History rOPINIRole HCL [Requip] 0.5 mg PO HS 09/08/18 03/31/22 History Calcium Carbonate [Calcium] 600 mg PO HS 11/28/18 03/31/22 History Multivitamins, Thera [Multivitamin 1 tab PO DAILY 11/28/18 03/31/22 History (formulary)] Aspirin EC [Ecotrin Low Dose] 81 mg PO DAILY 04/30/21 03/31/22 History Cholecalciferol [Vitamin D3 (25 50 mcg PO DAILY 04/30/21 03/31/22 History Mcg = 1000 Iu)] Pantoprazole [Protonix] 40 mg PO DAILY 04/30/21 03/31/22 History Albuterol Sulfate [Albuterol 2 puff PO RT-Q6H PRN 03/31/22 03/31/22 History Sulfate Hfa] Dm/Acetaminophen/Doxylamine [Vicks 30 ml PO HS 03/31/22 03/31/22 History Nyquil Cold-Flu Liquid] Fluticasone/Umeclidin/Vilanter 1 puff INHALATION RT-DAILY 03/31/22 03/31/22 History [Trelegy Ellipta 200-62.5-25] Gabapentin [Neurontin] 300 mg PO TID 03/31/22 03/31/22 History Latanoprost/Pf [Latanoprost 0.005% 1 drop BOTH EYES HS 03/31/22 03/31/22 History Eye Drop] guaiFENesin 400 mg PO BID 03/31/22 03/31/22 History predniSONE 10 mg PO DAILY 03/31/22 03/31/22 History Allergies Allergy/AdvReac Type Severity Reaction Status Date / Time No Known Allergies Allergy Verified 03/31/22 22:27 Physical Exam Vitals: Vital Signs Temp Pulse Pulse Resp BP BP Pulse Ox 04/01/22 07:51 74 04/01/22 07:42 71 04/01/22 07:30 04/01/22 07:00 64 20 130/74 97 04/01/22 06:45 72 20 118/65 97 04/01/22 06:30 68 20 94/73 97 04/01/22 06:15 92 17 115/59 97 04/01/22 06:00 75 20 107/55 97 04/01/22 05:50 04/01/22 05:45 73 20 143/75 92 L 04/01/22 05:40 04/01/22 05:30 60 20 120/73 98 04/01/22 05:23 04/01/22 05:15 65 20 111/65 98 04/01/22 05:00 68 20 94/50 97 04/01/22 04:49 04/01/22 04:45 76 20 89/57 97 04/01/22 04:30 86 17 98/88 89 L 04/01/22 04:15 84 20 84/57 04/01/22 04:00 98.1 F 88 16 89/59 99 04/01/22 03:45 87 14 58/46 96 04/01/22 03:30 79 20 60/27 95 04/01/22 03:25 04/01/22 03:20 04/01/22 03:18 34 H 04/01/22 02:30 96 04/01/22 02:00 35 H 04/01/22 00:55 04/01/22 00:00 98.1 F 100 35 H 135/77 92 L 03/31/22 23:57 98.1 F 104 H 40 H 143/86 90 L 03/31/22 23:50 98.2 F 92 40 H 143/86 91 L 03/31/22 23:41 03/31/22 22:30 03/31/22 22:19 22 03/31/22 21:45 03/31/22 21:38 97.6 F 116 H 26 H 175/94 96 FiO2 04/01/22 07:51 04/01/22 07:42 04/01/22 07:30 40 04/01/22 07:00 04/01/22 06:45 04/01/22 06:30 04/01/22 06:15 04/01/22 06:00 04/01/22 05:50 40 04/01/22 05:45 04/01/22 05:40 40 04/01/22 05:30 04/01/22 05:23 40 04/01/22 05:15 04/01/22 05:00 04/01/22 04:49 100 04/01/22 04:45 70 04/01/22 04:30 04/01/22 04:15 04/01/22 04:00 04/01/22 03:45 04/01/22 03:30 04/01/22 03:25 100 04/01/22 03:20 100 04/01/22 03:18 04/01/22 02:30 50 04/01/22 02:00 04/01/22 00:55 50 04/01/22 00:00 03/31/22 23:57 03/31/22 23:50 03/31/22 23:41 45 03/31/22 22:30 50 03/31/22 22:19 03/31/22 21:45 80 03/31/22 21:38 Intake and Output 03/31/22 04/01/22 04/01/22 22:59 06:59 14:59 Intake Total 1340.772 343.950 Output Total 200 10 Balance 1140.772 333.950 Intake: IV 1151 128 0.9 kvo 20 Sodium Chloride 0.9% 1, 125 125 000 ml @ 125 mls/hr IV . Q8H [facility] Rx#:[id number] Sodium Chloride 0.9% 1, 1000 000 ml @ 999 mls/hr IV . Q1H1M [facility] Rx#:[id number] pressure bag 6 3 Intake, IV Titration 189.772 215.950 Amount Norepinephrine 4 mg In 160.074 170.227 Sodium Chloride 0.9% 250 ml @ 0.05 MCG/KG/MIN 12. 961 mls/hr IV .[id number] [facility] Rx#:[id number] propofoL 1,000 mg In 29.698 45.723 Empty Bag 1 bag @ 5 MCG/ KG/MIN 2.041 mls/hr IV . Q24H [facility] Rx#:[id number] Output: Urine 200 10 Other: Voiding Method Indwelling Catheter Weight 68.039 kg 68.039 kg ABP, PAP, CO, CI - Last 8 Hours Arterial Blood Pressure 137/70 Arterial Blood Pressure 136/73 Arterial Blood Pressure 142/70 Arterial Blood Pressure 92/59 Arterial Blood Pressure 133/71 Arterial Blood Pressure 112/62 Arterial Blood Pressure 124/71 Arterial Blood Pressure 109/70 Arterial Blood Pressure 107/64 Arterial Blood Pressure 85/53 Arterial Blood Pressure 97/52 Arterial Blood Pressure 83/50 Arterial Blood Pressure 145/70 Arterial Blood Pressure 87/46 GENERAL: Reveals a 71-year-old white male frail looking, chronically ill, intubated and mechanically ventilated. HEENT: PERRLA, EOMI, anicteric, no neck masses, no JVD, endotracheal tube and orogastric tube are intact, moist mucous membranes noted. CARDIOVASCULAR: Distant S1 and S2 no S3 gallop. No murmur. PULMONARY: Symmetrical chest expansion, good breath sound bilaterally fine crack les at the bases. ABDOMEN: Soft nontender no megaly no rebound no guarding, positive bowel sounds. MUSCULOSKELETAL: No deformities and no limitation in range of motion EXTREMITIES: Mild clubbing, no edema, no cyanosis NEUROLOGICAL: Cannot fully assessed patient is sedated with propofol.. SKIN: No rashes. Psychiatric: Cannot fully assess. Results - Laboratory Findings CBC and BMP: 03/31/22 21:42 03/31/22 21:42 ABG ABG pH 7.32 (7.35-7.45) L 04/01/22 05:15 ABG pCO2 62 mmHg (35-45) H 04/01/22 05:15 ABG pO2 299 mmHg (83-108) H 04/01/22 05:15 ABG O2 Saturation 100.0 % (94-97) H 04/01/22 05:15 PT/INR, D-dimer PT 10.6 sec (9.0-12.0) 03/31/22 21:42 INR 1.0 (<1.2) 03/31/22 21:42 Abnormal lab findings: Abnormal Labs 03/31/22 03/31/22 03/31/22 21:42 21:42 21:42 RBC 3.78 L Hgb 11.1 L Hct 36.9 L MCHC 30.2 L RDW 20.0 H Lymphocytes # 0.7 L ABG pH ABG pCO2 ABG pO2 ABG HCO3 ABG Total CO2 ABG O2 Saturation Chloride 96 L Carbon Dioxide 32 H BUN 37 H Glucose 147 H POC Glucose (mg/dL) Alkaline Phosphatase 173 H Troponin I 0.083 H* Total Protein 6.0 L Albumin 3.1 L Urine Protein Urine Blood Hyaline Casts Urine Mucus 03/31/22 04/01/22 04/01/22 22:04 00:35 00:35 RBC Hgb Hct MCHC RDW Lymphocytes # ABG pH 7.18 L* 7.12 L* ABG pCO2 92 H* 109 H* ABG pO2 235 H ABG HCO3 34 H 35 H ABG Total CO2 37 H 39 H ABG O2 Saturation 99.7 H Chloride Carbon Dioxide BUN Glucose POC Glucose (mg/dL) Alkaline Phosphatase Troponin I 0.093 H* Total Protein Albumin Urine Protein Urine Blood Hyaline Casts Urine Mucus 04/01/22 04/01/22 04/01/22 04:03 04:40 05:15 RBC Hgb Hct MCHC RDW Lymphocytes # ABG pH 7.32 L ABG pCO2 62 H ABG pO2 299 H ABG HCO3 32 H ABG Total CO2 34 H ABG O2 Saturation 100.0 H Chloride Carbon Dioxide BUN Glucose POC Glucose (mg/dL) 231 H Alkaline Phosphatase Troponin I Total Protein Albumin Urine Protein 1+ H Urine Blood Moderate H Hyaline Casts 8 H Urine Mucus Few H 04/01/22 04/01/22 06:25 08:37 RBC Hgb Hct MCHC RDW Lymphocytes # ABG pH ABG pCO2 ABG pO2 ABG HCO3 ABG Total CO2 ABG O2 Saturation Chloride Carbon Dioxide BUN Glucose POC Glucose (mg/dL) 242 H Alkaline Phosphatase Troponin I 0.096 H* Total Protein Albumin Urine Protein Urine Blood Hyaline Casts Urine Mucus - Diagnostic Findings Chest x-ray: image reviewed (As noted in HPI.) Assessment and Plan Assessment: Impression: Possible sepsis with hypotension I am strongly suspecting this is secondary to hypovolemia Acute on chronic hypoxic and hypercapnic respiratory failure Suspect aspiration pneumonia Acute exacerbation of COPD History of squamous cell lung cancer diagnosed on 01/01/2022. Previous history of respiratory failure requiring intubation and mechanical ventilation tracheostomy and PEG tube placement Generalized anxiety disorder. Severe COPD, FEV1 less than 35%. Degenerative joint disease Recommendation: Continue ventilatory support Continue bronchodilators Continue hemodynamic support, titrate norepinephrine, I believe the patient was hypotensive mostly because of hypovolemia strongly doubt septic shock. Empiric antibiotics in the form of Zosyn Continue Solu-Medrol. GI and DVT prophylaxis Nutritional support Possible trial of weaning today on pressure support and CPAP if the patient could tolerate. Continue IV fluids Discussed and updated his family at bedside on his condition We'll continue to follow prognosis is relatively guarded. Critical care time is over 55. Time with Patient: Greater than 30
[2022-04-01 11:55] LABS: Glucose,Whole Blood 183 mg/dL (70-110)
[2022-04-01] MEDS: THEOPHYLLINE 24 HOUR 300 MG CAP.ER.24H PO SCH ×2 (12:31→21:21)
[2022-04-01] MEDS: HYDROCORTISONE SUCCINATE 100 MG/2 ML VIAL IV SCH ×3 (12:33→23:41)
[2022-04-01 16:01] LABS: Glucose,Whole Blood 109 mg/dL (70-110)
[2022-04-01] MEDS: BUDESONIDE 1 MG/2 ML NEBU INHALATION SCH (19:17)
[2022-04-01] MEDS: FORMOTEROL FUMARATE 20 MCG/2 ML NEBU INHALATION SCH (19:17)
[2022-04-01 20:10] LABS: Glucose,Whole Blood 134 mg/dL (70-110)
[2022-04-01] MEDS ORDERED: MONTELUKAST 10 MG TAB PO SCH (21:00)
[2022-04-01] MEDS ORDERED: ATORVASTATIN 10 MG TAB PO SCH (21:00)
[2022-04-01] MEDS ORDERED: LATANOPROST 0.005% OPHTH DROPS 2.5 ML BTL BOTH EYES SCH (21:00)
[2022-04-01] MEDS: CALCIUM CARBONATE 500 MG CHEWABLE PO SCH (21:20)
[2022-04-01 23:36] LABS: Glucose,Whole Blood 191 mg/dL (70-110)
[2022-04-02 04:18] LABS: Glucose,Whole Blood 153 mg/dL (70-110)
[2022-04-02] MEDS: SODIUM CHLORIDE 0.9% 1,000 ML IV SCH ×2 (04:30→14:59)
[2022-04-02] MEDS: INSULIN ASPART (NovoLOG) 100 UNIT/ML VIAL SQ SCH ×6 (04:31→23:57)
[2022-04-02 05:13] LABS: Anisocytosis Moderate; Basophils % (A) 0 %; Eosinophils % (A) 0 %; HCT 29.4 % (39.0-53.0); Hypochromasia Marked; Lymphocytes # (A) 0.2 k/uL (1.0-4.8); Lymphocytes % (A) 2 %; MCH 29.9 pg (25.0-35.0); MCHC 29.6 g/dL (31.0-37.0); Macrocytosis Moderate; Mean Platelet Volume 7.7; Monocytes # (A) 0.2 k/uL (0-1.0); Monocytes % (A) 3 %; Neutrophils # (A) 6.5 k/uL (1.3-7.7); Neutrophils % (A) 94 %; Platelet Count 406 k/uL (150-450); RBC 2.91 m/uL (4.30-5.90); RDW 20.3 % (11.5-15.5); WBC 6.9 k/uL (3.8-10.6)
[2022-04-02 05:36] LABS: Calcium 8.4 mg/dL (8.4-10.2); Potassium 4.9 mmol/L (3.5-5.1)
[2022-04-02 05:39] LABS: ABG Base Excess 2.5 mmol/L; ABG HCO3 29 mmol/L (21-25); ABG Oxygen Saturation 98.1 % (94-97); ABG PCO2 55 mmHg (35-45); ABG PH 7.32 (7.35-7.45); ABG PO2 101 mmHg (83-108); ABG TCO2 30 mmol/L (19-24); Allen Test Performed? Yes
[2022-04-02 06:41] LABS: HGB 8.7 gm/dL (13.0-17.5)
[2022-04-02 06:57] LABS: Glucose,Whole Blood 292 mg/dL (70-110)
[2022-04-02 07:10] LABS: Glucose,Whole Blood 189 mg/dL (70-110)
--- NOTE | 2022-04-02 07:12 | P.CRDCN ---
History of Present Illness History of present illness: HISTORY OF PRESENTING ILLNESS Patient is a pleasant 71-year-old male with history of advanced COPD, non-small cell lung cancer diagnosed December 2021, anemia, pneumonia, previous ventilation and tracheostomy prior normal coronary arteries by heart catheterization in 2018 who presents with respiratory distress. Patient currently intubated and sedated and history is supplied by chart. Patient not been eating well for the last 2 days and had some sensation of feeling food stuck in his throat and has a chronic cough. Apparently there was only some chest pain with coughing. Patient presen loco and was in respiratory distress with worsening CO2 and therefore intubated. Patient briefly on norepinephrine however this has been weaned. Currently on FiO2 35% with a PEEP of 5. Cardiology was consulted for elevated troponins. Blood work shows hemoglobin 11.1 white blood cell 8.2 creatinine 0.87, troponin 0.083, 0.093, proBNP 1000 490. EKG shows sinus tachycardia, right axis deviation, nonspecific minimal ST depressions in the lateral leads. REVIEW OF SYSTEMS At the time of my exam: Unable to obtain secondary to intubated and sedated. PHYSICAL EXAMINATION Vital signs reviewed. CONSTITUTIONAL: No apparent distress. HEENT: Head is normocephalic. Pupils are equal, round. Sclerae anicteric. Mucous membranes of the mouth are moist. No JVD. No carotid bruit. CHEST EXAMINATION: Lungs are clear to auscultation. No chest wall tenderness is noted on palpation or with deep breathing. HEART EXAMINATION: Regular rate and rhythm. S1, S2 heard. No murmurs, gallops or rub. ABDOMEN: Soft, nontender. Positive bowel sounds. EXTREMITIES: 2+ peripheral pulses, no lower extremity edema and no calf tenderness. NEUROLOGIC EXAMINATION: Patient is sedated and sedated on ventilator ASSESSMENT 1. non-STEMI, type II mechanism related to hypoxia and 2. Acute on chronic respiratory failure related to COPD exacerbation 3. Hypotension briefly on norepinephrine likely related to sedation 4. Normal coronary arteries by heart catheterization 2018 5. Elevated proBNP 1500 appears euvolemic 6. Anemia PLAN Check 2-D echo. Patient with mild troponin elevation likely related to hypoxia. Previous angiography from 2019 showed normal coronary arteries do not suspect acute coronary syndrome. Check d-dimer for completeness to rule out any pulmonary embolism. Continue supportive care. Past Medical History Past Medical History: Cancer, COPD, Hearing Disorder / Deafness, Hyperlipidemia, Osteoarthritis (OA), Pneumonia, Prostate Disorder Additional Past Medical History / Comment(s): Hard of hearing, has hearing aids but does not use them. FREQUENT HOARSENESS. HX PNEUMONIA/VENITLATED/TRACH @ [facility] FROM 06/12/18 TO 06/30/18. O2/2L @ NIGHT. RESTLESS LEG. NEUROPATHY. HX BLADDER CALCULI. HX ONE SEIZURE DURING BRONCHOSCOPY. LUNG CA 11/2021. History of Any Multi-Drug Resistant Organisms: None Reported Past Surgical History: Heart Catheterization, Prostate Surgery Additional Past Surgical History / Comment(s): TURP, RIGHT WRIST BIOPSY (SQ CELL). BILATERAL KNEE ARTHROSCOPIES. TRIGGER FINGER RELEASE BILATERAL HANDS. AMPUTATION TIP OF LEFT INDEX FINGER. Tracheotomy. BRONCHOSCOPY. Past Anesthesia/Blood Transfusion Reactions: No Reported Reaction Past Psychological History: Anxiety Smoking Status: Former smoker Past Alcohol Use History: Rare Additional Past Alcohol Use History / Comment(s): QUIT SMOKING February 2021. SMOK ED / PPD FOR 50+ YEARS. Past Drug Use History: None Reported - Past Family History Mother Family Medical History: Cancer Additional Family Medical History / Comment(s): LUNG Cancer. Father Family Medical History: Cancer Medications and Allergies Home Medications Medication Instructions Recorded Confirmed Type ALPRAZolam [Xanax] 0.5 mg PO TID 09/08/18 03/31/22 History Atorvastatin [Lipitor] 10 mg PO HS 09/08/18 03/31/22 History HYDROcodone/APAP 10-325MG [[place] 1 tab PO QID 09/08/18 03/31/22 History 10-325] Ipratropium-Albuterol Nebulize 3 ml INHALATION RT-QID 09/08/18 03/31/22 History [Duoneb 0.5 mg-3 mg/3 ml Soln] Montelukast [Singulair] 10 mg PO HS 09/08/18 03/31/22 History Theophylline 12 Hour [Jaskaran-Dur] 300 mg PO BID 09/08/18 03/31/22 History rOPINIRole HCL [Requip] 0.5 mg PO HS 09/08/18 03/31/22 History Calcium Carbonate [Calcium] 600 mg PO HS 11/28/18 03/31/22 History Multivitamins, Thera [Multivitamin 1 tab PO DAILY 11/28/18 03/31/22 History (formulary)] Aspirin EC [Ecotrin Low Dose] 81 mg PO DAILY 04/30/21 03/31/22 History Cholecalciferol [Vitamin D3 (25 50 mcg PO DAILY 04/30/21 03/31/22 History Mcg = 1000 Iu)] Pantoprazole [Protonix] 40 mg PO DAILY 04/30/21 03/31/22 History Albuterol Sulfate [Albuterol 2 puff PO RT-Q6H PRN 03/31/22 03/31/22 History Sulfate Hfa] Dm/Acetaminophen/Doxylamine [Vicks 30 ml PO HS 03/31/22 03/31/22 History Nyquil Cold-Flu Liquid] Fluticasone/Umeclidin/Vilanter 1 puff INHALATION RT-DAILY 03/31/22 03/31/22 History [Trelegy Ellipta 200-62.5-25] Gabapentin [Neurontin] 300 mg PO TID 03/31/22 03/31/22 History Latanoprost/Pf [Latanoprost 0.005% 1 drop BOTH EYES HS 03/31/22 03/31/22 History Eye Drop] guaiFENesin 400 mg PO BID 03/31/22 03/31/22 History predniSONE 10 mg PO DAILY 03/31/22 03/31/22 History Allergies Allergy/AdvReac Type Severity Reaction Status Date / Time No Known Allergies Allergy Verified 03/31/22 22:27 Physical Exam Vitals: Vital Signs Temp Pulse Resp BP Pulse Ox FiO2 04/02/22 07:00 79 20 109/77 95 04/02/22 06:30 73 20 95 04/02/22 06:00 73 20 92/64 95 04/02/22 05:30 73 20 95 04/02/22 05:00 71 20 95 04/02/22 04:30 77 20 99/66 95 04/02/22 04:00 97.6 F 77 20 110/71 94 L 35 04/02/22 03:41 35 04/02/22 03:30 80 30 H 110/71 93 L 04/02/22 03:00 74 19 92 L 04/02/22 02:30 72 20 107/71 93 L 04/02/22 02:00 74 20 122/80 91 L 04/02/22 01:30 70 20 122/80 93 L 04/02/22 01:28 35 04/02/22 01:00 72 20 114/83 98 04/02/22 00:30 56 L 20 114/83 97 04/02/22 00:23 57 L 20 114/83 97 04/02/22 00:00 97.6 F 59 L 20 118/75 97 35 04/01/22 23:30 57 L 20 114/77 97 04/01/22 23:00 58 L 20 115/80 97 04/01/22 22:30 56 L 20 114/79 97 04/01/22 22:00 65 20 97/69 97 04/01/22 21:30 84 20 112/79 97 04/01/22 21:00 66 20 112/72 97 04/01/22 20:30 70 20 123/74 97 04/01/22 20:00 97.6 F 63 20 128/81 98 35 04/01/22 19:40 68 04/01/22 19:30 66 20 125/73 97 04/01/22 19:26 64 04/01/22 19:25 64 04/01/22 19:15 62 35 04/01/22 19:00 57 L 20 124/78 94 L 04/01/22 18:30 64 20 123/77 93 L 04/01/22 18:00 63 20 120/69 94 L 04/01/22 17:30 66 20 120/77 93 L 04/01/22 17:00 74 20 120/73 93 L 04/01/22 16:30 72 20 122/84 94 L 04/01/22 16:11 62 04/01/22 16:02 68 04/01/22 16:00 97.6 F 68 20 121/75 94 L 35 04/01/22 15:50 35 04/01/22 15:30 79 22 116/73 92 L 04/01/22 15:00 70 20 115/67 93 L 04/01/22 14:30 72 40 H 116/67 93 L 04/01/22 14:00 65 20 119/75 94 L 04/01/22 13:30 71 20 120/70 93 L 04/01/22 13:00 67 33 H 117/74 93 L 04/01/22 12:30 67 26 H 117/70 91 L 04/01/22 12:10 64 04/01/22 12:00 64 20 119/71 92 L 35 04/01/22 11:50 35 04/01/22 11:40 35 04/01/22 11:30 68 20 91/51 93 L 04/01/22 11:00 82 40 H 67/41 90 L 04/01/22 10:30 89 27 H 80/50 88 L 04/01/22 10:00 103 H 36 H 140/75 04/01/22 09:30 97 20 137/70 88 L 04/01/22 09:00 105 H 19 112/60 81 L 04/01/22 08:30 87 20 130/77 04/01/22 08:00 74 20 126/73 97 40 04/01/22 07:51 74 04/01/22 07:42 71 04/01/22 07:30 74 20 121/67 97 Intake and Output 04/01/22 04/02/22 04/02/22 22:59 06:59 14:59 Intake Total 2555.389 7568.056 Output Total 250 340 Balance 7459.924 2988.056 Intake: IV 1024 1152 Sodium Chloride 0.9% 1, 1000 1125 000 ml @ 125 mls/hr IV . Q8H NESHA Rx#:[id number] pressure bag 24 27 Intake, IV Titration 397.326 281.056 Amount Dexmedetomidine/0.9% NaCl 19.221 (Pmx) 400 mcg In Empty Bag 1 bag @ 0.2 MCG/KG/HR 3.402 mls/hr IV .Q24H NESHA Rx#:[id number] Norepinephrine 4 mg In 245.445 30.589 Sodium Chloride 0.9% 250 ml @ 0.05 MCG/KG/MIN 12. 961 mls/hr IV .[id number] NESHA Rx#:[id number] Piperacillin-Tazobactam 3 100 100 .375 gm In Sodium Chloride 0.9% 100 ml @ 25 mls/hr IVPB Q8HR NESHA Rx# :[id number] propofoL 1,000 mg In 32.66 150.467 Empty Bag 1 bag @ 5 MCG/ KG/MIN 2.041 mls/hr IV . Q24H NESHA Rx#:[id number] Output: Urine 250 340 Other: Voiding Method Indwelling Catheter Indwelling Catheter Weight 71 kg ABP, PAP, CO, CI - Last 8 Hours Arterial Blood Pressure 114/66 Arterial Blood Pressure 113/75 Arterial Blood Pressure 106/69 Arterial Blood Pressure 105/68 Arterial Blood Pressure 92/56 Arterial Blood Pressure 98/53 Arterial Blood Pressure 107/58 Arterial Blood Pressure 164/88 Arterial Blood Pressure 136/58 Arterial Blood Pressure 136/58 Arterial Blood Pressure 128/56 Arterial Blood Pressure 120/55 Arterial Blood Pressure 128/73 Arterial Blood Pressure 111/67 Arterial Blood Pressure 112/68 Arterial Blood Pressure 118/64 Results 04/02/22 04:10 04/02/22 04:10 Cardiac Enzymes 04/01/22 Range/Units 06:25 Troponin I 0.096 H* (0.000-0.034) ng/mL CBC 04/02/22 Range/Units 04:10 WBC 6.9 (3.8-10.6) k/uL RBC 2.91 L (4.30-5.90) m/uL Hgb 8.7 L D (13.0-17.5) gm/dL Hct 29.4 L (39.0-53.0) % Plt Count 406 (150-450) k/uL Comprehensive Metabolic Panel 04/02/22 Range/Units 04:10 Sodium 139 (137-145) mmol/L Potassium 4.9 (3.5-5.1) mmol/L Chloride 103 (98-107) mmol/L Carbon Dioxide 25 (22-30) mmol/L BUN 61 H (9-20) mg/dL Creatinine 1.32 H (0.66-1.25) mg/dL Glucose 148 H (74-99) mg/dL Calcium 8.4 (8.4-10.2) mg/dL Current Medications Generic Name Dose Route Start Last Admin Trade Name Freq PRN Reason Stop Dose Admin Hydrocodone Bitart/Acetaminophen 1 each 03/31/22 22:30 Hydrocodone/Apap 5-325mg 1 Each Tab PO Q4HR PRN Moderate Pain Albuterol/Ipratropium 3 ml 04/01/22 08:00 04/01/22 19:17 Ipratropium-Albuterol 3 Ml Neb INHALATION 3 ml RT-QID NESHA Administration Aspirin 81 mg 04/01/22 09:00 04/01/22 08:35 Aspirin 81 Mg PO 81 mg DAILY NESHA Administration Atorvastatin Calcium 10 mg 04/01/22 00:45 04/01/22 21:20 Atorvastatin 10 Mg Tab PO 10 mg HS NESHA Administration Budesonide 1 mg 04/01/22 20:00 04/01/22 19:17 Budesonide 1 Mg/2 Ml Nebu INHALATION 1 mg RT-BID NESHA Administration Calcium Carbonate/Glycine 500 mg 04/01/22 21:00 04/01/22 21:20 Calcium Carbonate 500 Mg Chewable PO 500 mg HS NESHA Administration Chlorhexidine Gluconate 15 ml 04/01/22 09:00 04/01/22 21:20 Chlorhexidine Gluconate 15 Ml Cup MUCOUS MEM 15 ml BID NESHA Administration Cholecalciferol 50 mcg 04/01/22 09:00 04/01/22 08:35 Cholecalciferol 25 Mcg (1000 Iu) Tablet PO 50 mcg DAILY NESHA Administration Dextrose/Water 50 ml 04/01/22 07:15 Dextrose 50% Syringe 50 Ml IVP PER PROTOCOL PRN Hypoglycemia Protocol Formoterol Fumarate 20 mcg 04/01/22 20:00 04/01/22 19:17 Formoterol Fumarate 20 Mcg/2 Ml Nebu INHALATION 20 mcg RT-BID NESHA Administration Gabapentin 300 mg 04/01/22 00:45 04/01/22 21:21 Gabapentin 300 Mg Cap PO 300 mg TID NESHA Administration Heparin Sodium (Porcine) 5,000 unit 04/01/22 09:00 04/01/22 21:21 Heparin Sodium,Porcine/Pf 5,000 Unit/0.5 Ml Syringe SQ 5,000 unit Q12HR NESHA Administration Hydrocortisone Sodium Succinate 100 mg 04/01/22 10:30 04/01/22 23:41 Hydrocortisone Succinate 100 Mg/2 Ml Vial IV 100 mg Q8HR NESHA Administration Propofol 1,000 mg/ IV Solution 100 mls @ 2.041 mls/hr 04/01/22 03:30 04/02/22 06:46 IV 30 mcg/kg/min .Q24H NESHA 12.247 mls/hr Titration Protocol 5 MCG/KG/MIN Norepinephrine Bitartrate 4 mg 254 mls @ 12.961 mls/hr 04/01/22 04:00 04/02/22 06:46 / Sodium Chloride IV 0 mcg/kg/min .[id number] NESHA 0 mls/hr Titration Protocol 0.05 MCG/KG/MIN Sodium Chloride 1,000 mls @ 125 mls/hr 04/01/22 05:30 04/02/22 04:30 Saline 0.9% IV 125 mls/hr .Q8H NESHA Administration Piperacillin Sod/Tazobactam 100 mls @ 25 mls/hr 04/01/22 08:30 04/01/22 23:41 Sod 3.375 gm/ Sodium Chloride IVPB 25 mls/hr Q8HR NESHA Administration Protocol Dexmedetomidine HCl 400 mcg/ 100 mls @ 3.402 mls/hr 04/01/22 09:15 04/01/22 16:00 IV Solution IV 0 mcg/kg/hr .Q24H NESHA 0 mls/hr Titration Protocol 0.2 MCG/KG/HR Insulin Aspart 0 unit 04/01/22 08:00 04/02/22 07:03 Insulin Aspart (Novolog) 100 Unit/Ml Vial SQ 1 unit Q4HR NESHA Administration Protocol Ipratropium Galvin 0.5 mg 04/01/22 08:00 04/01/22 19:17 Ipratropium 0.5 Mg/2.5 Ml Nebu INHALATION Not Given RT-QID NESHA Latanoprost 1 drops 04/01/22 00:32 04/01/22 21:20 Latanoprost 0.005% Ophth Drops 2.5 Ml Btl BOTH EYES 1 drops HS NESHA Administration Lorazepam 0.5 mg 04/01/22 09:09 04/01/22 09:20 Lorazepam 2 Mg/Ml Inj IV 0.5 mg Q4HR PRN Administration Anxiety Montelukast Sodium 10 mg 04/01/22 00:34 04/01/22 21:21 Montelukast 10 Mg Tab PO 10 mg HS NESHA Administration Multivitamins 1 each 04/01/22 09:00 04/01/22 08:35 Multivitamins, Thera 1 Each Tab PO 1 each DAILY NESHA Administration Naloxone HCl 0.2 mg 03/31/22 22:30 Naloxone 0.4 Mg/Ml 1 Ml Vial IV Q2M PRN Opioid Reversal Non-Formulary Medication 400 mg 04/01/22 09:00 04/01/22 20:03 Guaifenesin [Guaifenesin] PO Not Given BID NESHA Pantoprazole Sodium 40 mg 04/01/22 09:00 04/01/22 08:33 Pantoprazole 40 Mg Tablet PO Not Given DAILY NESHA Ropinirole HCl 0.5 mg 04/01/22 00:45 04/01/22 21:47 Ropinirole Hcl 0.25 Mg Tab PO 0.5 mg HS NESHA Administration Theophylline 300 mg 04/01/22 09:00 04/01/22 21:21 Theophylline 24 Hour 300 Mg Cap.Er.24h PO 300 mg BID NESHA Administration Intake and Output 04/01/22 04/02/22 04/02/22 22:59 06:59 14:59 Intake Total 0815.525 3534.056 Output Total 250 340 Balance 4199.325 3297.056 Intake: IV 1024 1152 Sodium Chloride 0.9% 1, 1000 1125 000 ml @ 125 mls/hr IV . Q8H NESHA Rx#:[id number] pressure bag 24 27 Intake, IV Titration 397.326 281.056 Amount Dexmedetomidine/0.9% NaCl 19.221 (Pmx) 400 mcg In Empty Bag 1 bag @ 0.2 MCG/KG/HR 3.402 mls/hr IV .Q24H NESHA Rx#:[id number] Norepinephrine 4 mg In 245.445 30.589 Sodium Chloride 0.9% 250 ml @ 0.05 MCG/KG/MIN 12. 961 mls/hr IV .[id number] NESHA Rx#:[id number] Piperacillin-Tazobactam 3 100 100 .375 gm In Sodium Chloride 0.9% 100 ml @ 25 mls/hr IVPB Q8HR NESHA Rx# :[id number] propofoL 1,000 mg In 32.66 150.467 Empty Bag 1 bag @ 5 MCG/ KG/MIN 2.041 mls/hr IV . Q24H NESHA Rx#:[id number] Output: Urine 250 340 Other: Voiding Method Indwelling Catheter Indwelling Catheter Weight 71 kg 04/02/22 04:10 04/02/22 04:10
[2022-04-02] MEDS: FORMOTEROL FUMARATE 20 MCG/2 ML NEBU INHALATION SCH ×2 (07:39→19:24)
[2022-04-02] MEDS: IPRATROPIUM-ALBUTEROL 3 ML NEB INHALATION SCH ×4 (07:39→19:24)
[2022-04-02] MEDS: BUDESONIDE 1 MG/2 ML NEBU INHALATION SCH ×2 (07:39→19:24)
[2022-04-02] MEDS: PIPERACILLIN-TAZOBACTAM 3.375 GM in SODIUM CHLORIDE 0.9% 100 ML IVPB SCH ×3 (08:11→23:58)
[2022-04-02] MEDS: CHLORHEXIDINE GLUCONATE 15 ML CUP MUCOUS MEM SCH ×2 (08:11→20:58)
[2022-04-02] MEDS: HEPARIN SODIUM,PORCINE/PF 5,000 UNIT/0.5 ML SYRINGE SQ SCH ×2 (08:11→20:58)
[2022-04-02] MEDS: MULTIVITAMINS, THERA 1 EACH TAB PO SCH (08:12)
[2022-04-02] MEDS: GABAPENTIN 300 MG CAP PO SCH ×3 (08:12→20:59)
[2022-04-02] MEDS: ASPIRIN 81 MG PO SCH (08:12)
[2022-04-02] MEDS: CHOLECALCIFEROL 25 MCG (1000 IU) TABLET PO SCH (08:12)
[2022-04-02] MEDS: HYDROCORTISONE SUCCINATE 100 MG/2 ML VIAL IV SCH ×3 (08:12→23:57)
[2022-04-02] MEDS: GUAIFENESIN 400 MG PO SCH ×2 (08:12→20:58)
[2022-04-02] MEDS: THEOPHYLLINE 24 HOUR 300 MG CAP.ER.24H PO SCH ×2 (08:13→20:59)
[2022-04-02] MEDS: IPRATROPIUM 0.5 MG/2.5 ML NEBU INHALATION SCH (08:27)
[2022-04-02] MEDS: PANTOPRAZOLE 40 MG/10 ML VIAL IVP SCH (08:43)
--- NOTE | 2022-04-02 09:04 | XR ---
EXAMINATION TYPE: XR chest 1V portable DATE OF EXAM: 04/02/2022 COMPARISON: 04/01/2022 HISTORY: ET tube placement TECHNIQUE: Single frontal view of the chest is obtained. FINDINGS: ET and NG tubes stable. Diffuse emphysematous changes. Prominence of the left hilum. Under lying coarsened interstitium suggests chronic interstitial lung disease. Large bulla left upper lobe. Subsegmental infiltrate right lower lobe. IMPRESSION: 1. Diffuse emphysematous changes with right lower lobe subsegmental atelectasis or persistent promine nce of compatible with soft tissue mass. 2. Subsegmental atelectasis or infiltrate right lung base.
[2022-04-02 11:51] LABS: Glucose,Whole Blood 225 mg/dL (70-110)
--- NOTE | 2022-04-02 12:07 | P.PN ---
Subjective Progress Note Date: 04/02/22 Principal diagnosis: Acute on chronic hypoxic and hypercapnic respiratory failure secondary to COPD, bronchogenic carcinoma, and aspiration pneumonia This is a 71-year-old white male with chronic hypoxic and hypercapnic respiratory failure severe end-stage COPD, previous history of respiratory failure requiring intubation and mechanical ventilation history of non-small cell lung cancer diagnosed back in December of 2021. Patient presented to the hospital with 2 days history of increased shortness of breath, associated with cough, some wheezing, patient is normally maintained on oxygen and on prednisone as well as theophylline and many other bronchodilators. Has been very compliant with his medications. Admitted through the emergency room with acute on chronic hypoxic and hypercapnic respiratory failure patient was placed on relatively high FiO2 and BiPAP. Condition deteriorated and the patient went on to develop worsening hypercapnic respiratory failure requiring transfer to the ICU, intubation, mechanical ventilation, and I'm seeing him today on consultation. Patient is sedated, he is on propofol. His ventilator settings are assist control rate of 20, volume 450 FiO2 35% and PEEP of 5 ABG earlier on 70% showed a pO2 of 299 pCO2 of 62 pH of 7.32. Patient is on propofol at 50 mcg/kg/m, 0.9 normal saline at 1 25 mL per hour, norepinephrine at 0.4 mcg/kg/m. Patient did receive fluid boluses yesterday, today antibiotics were added and sputum cultures are pending. Patient will be placed empirically on Zosyn. Chest x-ray showed evidence of mass in the left pulmonary hilar area which is basically his original bronchogenic carcinoma minimal infiltrate in the left lower lobe and there is hyperinflation as well as coarse interstitial densities in both lower lobes. Nasogastric tube was noted to be in the proper position endotracheal tube in the proper position. Family is at bedside, updated the family on his condition, and we will likely give the patient a trial of weaning however the patient is known to have significant history of anxiety and I will try to use Precedex, pressure support mode of mechanical ventilation with a pressure support of 12 and CPAP after taking the patient off propofol if possible. Reevaluated today 04/02/22, patient remains in the ICU, intubated and mechanically ventilated. He is on assist control rate of 20 to volume 450 FiO2 35% and PEEP of 5. ABG showed a pO2 of 101 pCO2 of 55 pH of 7.32. Patient is on propofol at 30 mcg/kg/m he is also on 0.9 normal saline at 1 25 mL per hour. He is not requiring any pressors, no inotropes are needed. And no diuretics are needed. Patient was given a trial of weaning again today and he did not do well. As soon as the propofol placed on hold, patient became extremely short of breath, tachypnea, tachycardic, and he was having even rough time on assist control mode of mechanical ventilation. Hence did not even get a chance to place the patient on pressure support mode of mechanical ventilation. Hence placed back on assist control mode and discussed with the family the different options with the patient. He will likely require tracheostomy and PEG tube placement, unless the family decides on possible comfort care measures. In the meantime we will try to continue daily assessment for weaning, but I have a strong feeling that the patient will not wean easily and may require again tracheostomy and PEG tube placement. Family would like to discuss this among themselves, and they will let me know whether they are agreeable to proceed with comfort care measures down the line. Patient again has severe end-stage COPD and he has bronchogenic carcinoma. Objective - Vital Signs Vital signs: Vital Signs Temp 97.2 F L 04/02/22 08:00 Pulse 71 04/02/22 11:35 Resp 39 H 04/02/22 10:00 BP 130/79 04/02/22 09:30 Pulse Ox 94 L 04/02/22 10:00 FiO2 35 04/02/22 11:10 Intake & Output 04/01/22 04/02/22 04/02/22 18:59 06:59 18:59 Intake Total 2363.454 1962.046 452.273 Output Total 380 430 95 Balance 3579.853 0084.046 357.273 Weight 68.039 kg 71 kg 71 kg Intake: IV 1664 1536 309 Sodium Chloride 0.9% 1, 1625 1500 300 000 ml @ 50 mls/hr IV . Q20H NESHA Rx#:[id number] pressure bag 39 36 9 Intake, IV Titration 699.454 426.046 143.273 Amount Dexmedetomidine/0.9% NaCl 47.174 (Pmx) 400 mcg In Empty Bag 1 bag @ 0.2 MCG/KG/HR 3.402 mls/hr IV .Q24H NESHA Rx#:[id number] Norepinephrine 4 mg In 406.557 142.919 0 Sodium Chloride 0.9% 250 ml @ 0.05 MCG/KG/MIN 12. 961 mls/hr IV .[id number] NESHA Rx#:[id number] Piperacillin-Tazobactam 3 200 100 100 .375 gm In Sodium Chloride 0.9% 100 ml @ 25 mls/hr IVPB Q8HR NESHA Rx# :[id number] propofoL 1,000 mg In 45.723 183.127 43.273 Empty Bag 1 bag @ 5 MCG/ KG/MIN 2.041 mls/hr IV . Q24H NESHA Rx#:[id number] Output: Urine 380 430 95 Other: Voiding Method Indwelling Catheter Indwelling Catheter Indwelling Catheter ABP, PAP, CO, CI - Last Documented Arterial Blood Pressure 96/47 - Exam GENERAL: Reveals a 71-year-old white male on mechanical ventilation, sedated, on propofol HEENT: PERRLA, EOMI, anicteric, no neck masses, no JVD, endotracheal tube and orogastric tube are intact, moist mucous membranes noted. CARDIOVASCULAR: Distant S1 and S2 no S3 gallop. No murmur. PULMONARY: Symmetrical chest expansion, good breath sound bilaterally fine crackles at the bases. ABDOMEN: Soft nontender no megaly no rebound no guarding, positive bowel sounds. MUSCULOSKELETAL: No deformities and no limitation in range of motion EXTREMITIES: Mild clubbing, no edema, no cyanosis NEUROLOGICAL: Cannot fully assess/sedated on propofol SKIN: No rashes. Psychiatric: Cannot assess - Labs CBC & Chem 7: 04/02/22 04:10 04/02/22 04:10 Labs: Abnormal Lab Results - Last 24 Hours (Table) 04/01/22 04/01/22 04/02/22 Range/Units 20:07 23:34 04:10 RBC 2.91 L (4.30-5.90) m/uL Hgb 8.7 L D (13.0-17.5) gm/dL Hct 29.4 L (39.0-53.0) % MCV 101.0 H (80.0-100.0) fL MCHC 29.6 L (31.0-37.0) g/dL RDW 20.3 H (11.5-15.5) % Lymphocytes # 0.2 L (1.0-4.8) k/uL ABG pH (7.35-7.45) ABG pCO2 (35-45) mmHg ABG HCO3 (21-25) mmol/L ABG Total CO2 (19-24) mmol/L ABG O2 Saturation (94-97) % BUN (9-20) mg/dL Creatinine (0.66-1.25) mg/dL Glucose (74-99) mg/dL POC Glucose (mg/dL) 134 H 191 H (70-110) mg/dL 04/02/22 04/02/22 04/02/22 Range/Units 04:10 04:15 05:38 RBC (4.30-5.90) m/uL Hgb (13.0-17.5) gm/dL Hct (39.0-53.0) % MCV (80.0-100.0) fL MCHC (31.0-37.0) g/dL RDW (11.5-15.5) % Lymphocytes # (1.0-4.8) k/uL ABG pH 7.32 L (7.35-7.45) ABG pCO2 55 H (35-45) mmHg ABG HCO3 29 H (21-25) mmol/L ABG Total CO2 30 H (19-24) mmol/L ABG O2 Saturation 98.1 H (94-97) % BUN 61 H (9-20) mg/dL Creatinine 1.32 H (0.66-1.25) mg/dL Glucose 148 H (74-99) mg/dL POC Glucose (mg/dL) 153 H (70-110) mg/dL 04/02/22 04/02/22 04/02/22 Range/Units 06:56 06:58 11:49 RBC (4.30-5.90) m/uL Hgb (13.0-17.5) gm/dL Hct (39.0-53.0) % MCV (80.0-100.0) fL MCHC (31.0-37.0) g/dL RDW (11.5-15.5) % Lymphocytes # (1.0-4.8) k/uL ABG pH (7.35-7.45) ABG pCO2 (35-45) mmHg ABG HCO3 (21-25) mmol/L ABG Total CO2 (19-24) mmol/L ABG O2 Saturation (94-97) % BUN (9-20) mg/dL Creatinine (0.66-1.25) mg/dL Glucose (74-99) mg/dL POC Glucose (mg/dL) 292 H 189 H 225 H (70-110) mg/dL Microbiology - Last 24 Hours (Table) 04/01/22 09:09 Blood Culture - Preliminary Blood No Growth after 24 hours 04/01/22 10:09 Gram Stain - Preliminary Sputum Sputum Culture - Preliminary 04/01/22 03:48 Gram Stain - Preliminary Sputum Sputum Culture - Preliminary Assessment and Plan Assessment: Impression: Possible sepsis with hypotension I am strongly suspecting this is secondary to hypovolemia Acute on chronic hypoxic and hypercapnic respiratory failure Suspect aspiration pneumonia Acute exacerbation of COPD History of squamous cell lung cancer diagnosed on 01/01/2022. Previous history of respiratory failure requiring intubation and mechanical ve ntilation tracheostomy and PEG tube placement Generalized anxiety disorder. Severe COPD, FEV1 less than 35%. Degenerative joint disease Recommendation: Continue ventilatory support, patient failed weaning so far twice. Continue bronchodilators Continue hemodynamic as needed. Continue Zosyn. Continue Solu-Medrol. GI and DVT prophylaxis Nutritional support/enteral feeding We'll continue daily trials of weaning Continue IV fluids Discussed and updated his family at bedside on his condition, and discussed the option of tracheostomy and PEG tube placement discussed the option of comfort care measures and discussed the options of pursuing what we are doing and daily trials of weaning until sometime next week. Family would like to discuss this among themselves, and they will let me know about that decision especially decision about comfort care measures if possible. We'll continue to follow prognosis is relatively guarded. Critical care time is over 35. Minutes. Not including the time spent on procedures Time with Patient: Greater than 30
--- NOTE | 2022-04-02 13:38 | OP ---
OPERATIVE REPORT PROCEDURE PERFORMED: Placement of the right femoral triple-lumen catheter. PREOPERATIVE DIAGNOSIS: Acute respiratory failure. POSTOPERATIVE DIAGNOSIS: Acute respiratory failure. ANESTHESIA USED: 2 mL of 1% lidocaine. PROCEDURE IN DETAIL: The patient was placed in the supine position. The right groin was prepared in a sterile fashion. Drapes were applied. The area was locally anesthetized with lidocaine. Then, the right femoral vein was easily cannulated, a guidewire was placed. The area around the guidewire was dilated. Then, over the guidewire, a triple-lumen catheter was inserted and the guidewire was removed. Good blood flow noted in the 3 different ports of the triple-lumen catheter. The line was secured with 3.0 silk sutures. No complications. MMODL / IJN: [id number] /
--- NOTE | 2022-04-02 14:12 | CDI ---
Documentation Clarification Form Date: 04/02/2022 01:54:05 PM From: Yamileth Avilez Admit Date: 03/31/2022 10:30:00 PM Patient Name: Anuj Marcum Visit Number: [id number] Discharge Date: ATTENTION: The Clinical Documentation Specialists (CDI) and [facility] Coding Staff appreciate your assistance in clarifying documentation. Please respond to the clarification below the line at the bottom and electronically sign. The CDI & [facility] Coding staff will review the response and follow-up if needed. Please note: Queries are made part of the Legal Health Record. If you have any questions, please contact the author of this message via ITS. Dr. Dinesh Davies Sepsis is documented 04/01, Pulmonary progress note, but is not noted in subsequent documentation. Clarification is requested. History/Risk Factors: 71-year-old male presents to the ED with weakness, worsening dyspnea has been feeling like something is stuck in his throat with Phlegm. Medical history: COPD and Lung cancer diagnosed 11/2021. Clinical Indicators: VSS: 04/02 B/P 175/94; Temp 97.6F Oral; HR 116; RR 26; SpO2 80% BiPAP. LABS: Wbc 8.2; Hgb 11.1; Chl 96; Carbon Dioxide 32; BUN 37; Glucose 147; Alk phos 173; Trop 0.083; 0.9093 0.096; BNP 1490 Sputum Culture 04/01: Gram Neg Bacilli Treatment: 04/01 DuoNeb 0.5mg-3mg/3ml Inhalation RT QID NESHA; 04/01 Solu Cortef IV Q8HR; 04/01 Norepinephrine IV [id number]; 04/01 Zosyn IVPB Q8HR; 04/01 0.9NS 1L bolus Please clarify if the Sepsis is: [ ] Sepsis confirmed POA, remains under treatment [ ] Sepsis confirmed POA, resolved [ ] Sepsis ruled out [ ] Other condition, please specify [ ] Unable to determine (Template Last Revised: October 2020) possible sepsis ILA , been treated MTDD
[2022-04-02 16:48] LABS: Glucose,Whole Blood 135 mg/dL (70-110)
[2022-04-02 19:59] LABS: Glucose,Whole Blood 151 mg/dL (70-110)
[2022-04-02] MEDS: NOREPINEPHRINE 4 MG in SODIUM CHLORIDE 0.9% 250 ML IV SCH (20:56)
[2022-04-02] MEDS: CALCIUM CARBONATE 500 MG CHEWABLE PO SCH (20:57)
[2022-04-02] MEDS: LATANOPROST 0.005% OPHTH DROPS 2.5 ML BTL BOTH EYES SCH (20:58)
[2022-04-02] MEDS: ATORVASTATIN 10 MG TAB PO SCH (20:58)
[2022-04-02] MEDS: MONTELUKAST 10 MG TAB PO SCH (20:59)
[2022-04-02 23:50] LABS: Glucose,Whole Blood 186 mg/dL (70-110)
[2022-04-03 04:25] LABS: Glucose,Whole Blood 173 mg/dL (70-110)
[2022-04-03] MEDS: INSULIN ASPART (NovoLOG) 100 UNIT/ML VIAL SQ SCH ×6 (04:26→23:49)
[2022-04-03 04:46] LABS: Calcium 8.7 mg/dL (8.4-10.2); Potassium 4.9 mmol/L (3.5-5.1)
[2022-04-03 04:49] LABS: Anisocytosis Moderate; HCT 29.3 % (39.0-53.0); HGB 8.8 gm/dL (13.0-17.5); Hypochromasia Marked; MCH 30.4 pg (25.0-35.0); MCV 101.1 fL (80.0-100.0); Macrocytosis Moderate; Platelet Count 427 k/uL (150-450); RDW 20.9 % (11.5-15.5)
[2022-04-03 05:23] LABS: Band Neutrophils % 17 %; Lymphocytes # (M) 0.15 k/uL (1.0-4.8); Metamyelocytes # (M) 0.29 k/uL (0); Metamyelocytes % 4 %; Monocytes # (M) 0.07 k/uL (0-1.0); Neutrophils % (M) 76 %; Nucleated Red Blood Cells 5 /100 WBC (0-0); Total Cells Counted 200; WBC 7.3 k/uL (3.8-10.6)
[2022-04-03 05:24] LABS: Rouleaux Present
[2022-04-03 05:25] LABS: Toxic Granulation Present
[2022-04-03 05:43] LABS: ABG HCO3 30 mmol/L (21-25); ABG Oxygen Saturation 98.1 % (94-97); ABG PCO2 56 mmHg (35-45); ABG PH 7.34 (7.35-7.45); ABG PO2 106 mmHg (83-108); ABG TCO2 32 mmol/L (19-24); Allen Test Performed? Yes
[2022-04-03 06:59] LABS: Glucose,Whole Blood 227 mg/dL (70-110)
[2022-04-03] MEDS: IPRATROPIUM-ALBUTEROL 3 ML NEB INHALATION SCH ×4 (07:43→19:34)
[2022-04-03] MEDS: BUDESONIDE 1 MG/2 ML NEBU INHALATION SCH ×2 (07:43→19:34)
[2022-04-03] MEDS: FORMOTEROL FUMARATE 20 MCG/2 ML NEBU INHALATION SCH ×2 (07:43→19:34)
--- NOTE | 2022-04-03 07:49 | XR ---
EXAMINATION TYPE: XR chest 1V portable DATE OF EXAM: 04/03/2022 5:25 AM COMPARISON: Chest radiograph from one day prior. TECHNIQUE: XR chest 1V portable one view. CLINICAL INDICATION:Male, 71 years old with history of Tube placement; FINDINGS: Lungs/Pleura: Prominent interstitial lung markings are seen scattered throughout the lungs with super imposed subtle airspace opacities.. No evidence of focal consolidation, pneumothorax or pleural effus ion. Pulmonary vascularity: Unremarkable. Heart/mediastinum: Cardiomediastinal silhouette is unremarkable. Musculoskeletal: No acute osseous pathology. Lines/Tubes: Endotracheal tube with distal tip 5.5 cm above the artemio Nasogastric tube with its distal tip and side-port projecting under the diaphragm. IMPRESSION: 1. COPD changes with suspected superimposed airspace disease. 2. Endotracheal nasogastric tubes in appropriate position.
[2022-04-03] MEDS: PANTOPRAZOLE 40 MG/10 ML VIAL IVP SCH (08:50)
[2022-04-03] MEDS: CHLORHEXIDINE GLUCONATE 15 ML CUP MUCOUS MEM SCH ×2 (08:51→21:08)
[2022-04-03] MEDS: CHOLECALCIFEROL 25 MCG (1000 IU) TABLET PO SCH (08:51)
[2022-04-03] MEDS: GABAPENTIN 300 MG CAP PO SCH ×3 (08:51→21:10)
[2022-04-03] MEDS: HEPARIN SODIUM,PORCINE/PF 5,000 UNIT/0.5 ML SYRINGE SQ SCH ×2 (08:51→21:08)
[2022-04-03] MEDS: ASPIRIN 81 MG PO SCH (08:51)
[2022-04-03] MEDS: PIPERACILLIN-TAZOBACTAM 3.375 GM in SODIUM CHLORIDE 0.9% 100 ML IVPB SCH ×3 (08:51→23:48)
[2022-04-03] MEDS: HYDROCORTISONE SUCCINATE 100 MG/2 ML VIAL IV SCH ×3 (08:51→23:48)
[2022-04-03] MEDS: THEOPHYLLINE 24 HOUR 300 MG CAP.ER.24H PO SCH ×2 (08:52→21:10)
[2022-04-03] MEDS: MULTIVITAMINS, THERA 1 EACH TAB PO SCH (08:52)
[2022-04-03] MEDS: GUAIFENESIN 400 MG PO SCH ×2 (08:52→21:08)
--- NOTE | 2022-04-03 10:00 | P.PN ---
Subjective Progress Note Date: 04/03/22 Principal diagnosis: Acute on chronic hypoxic and hypercapnic respiratory failure secondary to COPD, bronchogenic carcinoma, and aspiration pneumonia This is a 71-year-old white male with chronic hypoxic and hypercapnic respiratory failure severe end-stage COPD, previous history of respiratory failure requiring intubation and mechanical ventilation history of non-small cell lung cancer diagnosed back in December of 2021. Patient presented to the hospital with 2 days history of increased shortness of breath, associated with cough, some wheezing, patient is normally maintained on oxygen and on prednisone as well as theophylline and many other bronchodilators. Has been very compliant with his medications. Admitted through the emergency room with acute on chronic hypoxic and hypercapnic respiratory failure patient was placed on relatively high FiO2 and BiPAP. Condition deteriorated and the patient went on to develop worsening hypercapnic respiratory failure requiring transfer to the ICU, intubation, mechanical ventilation, and I'm seeing him today on consultation. Patient is sedated, he is on propofol. His ventilator settings are assist control rate of 20, volume 450 FiO2 35% and PEEP of 5 ABG earlier on 70% showed a pO2 of 299 pCO2 of 62 pH of 7.32. Patient is on propofol at 50 mcg/kg/m, 0.9 normal saline at 1 25 mL per hour, norepinephrine at 0.4 mcg/kg/m. Patient did receive fluid boluses yesterday, today antibiotics were added and sputum cultures are pending. Patient will be placed empirically on Zosyn. Chest x-ray showed evidence of mass in the left pulmonary hilar area which is basically his original bronchogenic carcinoma minimal infiltrate in the left lower lobe and there is hyperinflation as well as coarse interstitial densities in both lower lobes. Nasogastric tube was noted to be in the proper position endotracheal tube in the proper position. Family is at bedside, updated the family on his condition, and we will likely give the patient a trial of weaning however the patient is known to have significant history of anxiety and I will try to use Precedex, pressure support mode of mechanical ventilation with a pressure support of 12 and CPAP after taking the patient off propofol if possible. Reevaluated today 04/02/22, patient remains in the ICU, intubated and mechanically ventilated. He is on assist control rate of 20 to volume 450 FiO2 35% and PEEP of 5. ABG showed a pO2 of 101 pCO2 of 55 pH of 7.32. Patient is on propofol at 30 mcg/kg/m he is also on 0.9 normal saline at 1 25 mL per hour. He is not requiring any pressors, no inotropes are needed. And no diuretics are needed. Patient was given a trial of weaning again today and he did not do well. As soon as the propofol placed on hold, patient became extremely short of breath, tachypnea, tachycardic, and he was having even rough time on assist control mode of mechanical ventilation. Hence did not even get a chance to place the patient on pressure support mode of mechanical ventilation. Hence placed back on assist control mode and discussed with the family the different options with the patient. He will likely require tracheostomy and PEG tube placement, unless the family decides on possible comfort care measures. In the meantime we will try to continue daily assessment for weaning, but I have a strong feeling that the patient will not wean easily and may require again tracheostomy and PEG tube placement. Family would like to discuss this among themselves, and they will let me know whether they are agreeable to proceed with comfort care measures down the line. Patient again has severe end-stage COPD and he has bronchogenic carcinoma. Reevaluated today on 04/03/22, patient remains in the ICU intubated and mechanically ventilated. He is now on assist control rate of 20 to volume 450 FiO2 35% and PEEP of 5. Peak airway pressure is 35. His ABG showed a pO2 of 106 pCO2 56 pH of 7.34. Patient remains on 35% FiO2. Patient is off nor epinephrine he remains on normal saline at 50 mL an hour and on propofol at 50 mcg/kg/m. Patient is receiving vital Hp at 50 mL/h the goal is 50. On physical examination continues to have rhonchi and wheezes bilaterally chest x-rays showing slight improvement in his bilateral infiltrates. Left hilar mass remains the same. Hence I have no plans to wean the patient today, and the family has made a decision that the patient does not wean in the next few days, they would like him to proceed with tracheostomy and PEG tube placement and eventual placement. We will decide this early next week in the meantime patient is not related to believe that extubated. CBC is relatively unremarkable WBC 7.3 hemoglobin is 8.8, basic metabolic profile is relatively normal, BUN is 67 creatinine is 1.36 hence we will increase his IV fluid to 75 mL Objective - Vital Signs Vital signs: Vital Signs Temp 98.4 F 04/03/22 08:00 Pulse 85 04/03/22 08:10 Resp 20 04/03/22 08:00 BP 101/71 04/03/22 07:00 Pulse Ox 97 04/03/22 08:00 FiO2 35 04/03/22 08:00 Intake & Output 04/02/22 04/03/22 04/03/22 18:59 06:59 18:59 Intake Total 6172.584 1076.058 286 Output Total 400 565 80 Balance 742.437 744.058 206 Weight 71 kg 73 kg Intake: IV 733 746 126 0.9 kvo 110 20 Sodium Chloride 0.9% 1, 700 600 100 000 ml @ 50 mls/hr IV . Q20H NESHA Rx#:[id number] pressure bag 33 36 6 Intake, IV Titration 409.437 193.058 100 Amount Norepinephrine 4 mg In 84.722 25.018 Sodium Chloride 0.9% 250 ml @ 0.05 MCG/KG/MIN 12. 961 mls/hr IV .[id number] NESHA Rx#:[id number] Piperacillin-Tazobactam 3 200 .375 gm In Sodium Chloride 0.9% 100 ml @ 25 mls/hr IVPB Q8HR NESHA Rx# :[id number] propofoL 1,000 mg In 124.715 168.04 100 Empty Bag 1 bag @ 5 MCG/ KG/MIN 2.041 mls/hr IV . Q24H NESHA Rx#:[id number] Tube Feeding 280 60 Other 90 Output: Urine 400 565 80 Other: Voiding Method Indwelling Catheter Indwelling Catheter Indwelling Catheter ABP, PAP, CO, CI - Last Documented Arterial Blood Pressure 99/57 - Exam GENERAL: Reveals a 71-year-old white male on mechanical ventilation, sedated, on propofol HEENT: PERRLA, EOMI, anicteric, no neck masses, no JVD, endotracheal tube and orogastric tube are intact, moist mucous membranes noted. CARDIOVASCULAR: Distant S1 and S2 no S3 gallop. No murmur. PULMONARY: Symmetrical chest expansion, some wheezing noted bilaterally. ABDOMEN: Soft nontender no megaly no rebound no guarding, positive bowel sounds. MUSCULOSKELETAL: No deformities and no limitation in range of motion EXTREMITIES: Mild clubbing, no edema, no cyanosis NEUROLOGICAL: Cannot fully assess/sedated on propofol SKIN: No rashes. Psychiatric: Cannot assess - Labs CBC & Chem 7: 04/03/22 04:10 04/03/22 04:10 Labs: Abnormal Lab Results - Last 24 Hours (Table) 04/02/22 04/02/22 04/02/22 Range/Units 04:10 11:49 15:02 RBC (4.30-5.90) m/uL Hgb (13.0-17.5) gm/dL Hct (39.0-53.0) % MCV (80.0-100.0) fL MCHC (31.0-37.0) g/dL RDW (11.5-15.5) % Lymphocytes # (Manual) (1.0-4.8) k/uL Metamyelocytes # (Man) (0) k/uL Nucleated RBCs (0-0) /100 WBC D-Dimer 4.14 H (<0.60) mg/L FEU ABG pH (7.35-7.45) ABG pCO2 (35-45) mmHg ABG HCO3 (21-25) mmol/L ABG Total CO2 (19-24) mmol/L ABG O2 Saturation (94-97) % BUN (9-20) mg/dL Creatinine (0.66-1.25) mg/dL Glucose (74-99) mg/dL POC Glucose (mg/dL) 225 H (70-110) mg/dL Procalcitonin 1.19 H (0.02-0.09) ng/mL 04/02/22 04/02/22 04/02/22 Range/Units 16:46 19:57 23:48 RBC (4.30-5.90) m/uL Hgb (13.0-17.5) gm/dL Hct (39.0-53.0) % MCV (80.0-100.0) fL MCHC (31.0-37.0) g/dL RDW (11.5-15.5) % Lymphocytes # (Manual) (1.0-4.8) k/uL Metamyelocytes # (Man) (0) k/uL Nucleated RBCs (0-0) /100 WBC D-Dimer (<0.60) mg/L FEU ABG pH (7.35-7.45) ABG pCO2 (35-45) mmHg ABG HCO3 (21-25) mmol/L ABG Total CO2 (19-24) mmol/L ABG O2 Saturation (94-97) % BUN (9-20) mg/dL Creatinine (0.66-1.25) mg/dL Glucose (74-99) mg/dL POC Glucose (mg/dL) 135 H 151 H 186 H (70-110) mg/dL Procalcitonin (0.02-0.09) ng/mL 04/03/22 04/03/22 04/03/22 Range/Units 04:10 04:10 04:22 RBC 2.90 L (4.30-5.90) m/uL Hgb 8.8 L (13.0-17.5) gm/dL Hct 29.3 L (39.0-53.0) % MCV 101.1 H (80.0-100.0) fL MCHC 30.0 L (31.0-37.0) g/dL RDW 20.9 H (11.5-15.5) % Lymphocytes # (Manual) 0.15 L (1.0-4.8) k/uL Metamyelocytes # (Man) 0.29 H (0) k/uL Nucleated RBCs 5 H (0-0) /100 WBC D-Dimer (<0.60) mg/L FEU ABG pH (7.35-7.45) ABG pCO2 (35-45) mmHg ABG HCO3 (21-25) mmol/L ABG Total CO2 (19-24) mmol/L ABG O2 Saturation (94-97) % BUN 67 H (9-20) mg/dL Creatinine 1.36 H (0.66-1.25) mg/dL Glucose 164 H (74-99) mg/dL POC Glucose (mg/dL) 173 H (70-110) mg/dL Procalcitonin (0.02-0.09) ng/mL 04/03/22 04/03/22 Range/Units 05:40 06:58 RBC (4.30-5.90) m/uL Hgb (13.0-17.5) gm/dL Hct (39.0-53.0) % MCV (80.0-100.0) fL MCHC (31.0-37.0) g/dL RDW (11.5-15.5) % Lymphocytes # (Manual) (1.0-4.8) k/uL Metamyelocytes # (Man) (0) k/uL Nucleated RBCs (0-0) /100 WBC D-Dimer (<0.60) mg/L FEU ABG pH 7.34 L (7.35-7.45) ABG pCO2 56 H (35-45) mmHg ABG HCO3 30 H (21-25) mmol/L ABG Total CO2 32 H (19-24) mmol/L ABG O2 Saturation 98.1 H (94-97) % BUN (9-20) mg/dL Creatinine (0.66-1.25) mg/dL Glucose (74-99) mg/dL POC Glucose (mg/dL) 227 H (70-110) mg/dL Procalcitonin (0.02-0.09) ng/mL Microbiology - Last 24 Hours (Table) 04/01/22 11:54 Blood Culture - Preliminary Blood No Growth after 24 hours 04/01/22 10:09 Gram Stain - Preliminary Sputum Sputum Culture - Preliminary Gram Neg Bacilli 04/01/22 03:48 Gram Stain - Preliminary Sputum Sputum Culture - Preliminary Gram Neg Bacilli 04/01/22 09:09 Blood Culture - Preliminary Blood No Growth after 24 hours Assessment and Plan Assessment: Impression: Possible sepsis with hypotension I am strongly suspecting this is secondary to hypovolemia Acute on chronic hypoxic and hypercapnic respiratory failure Suspect aspiration pneumonia Acute exacerbation of COPD History of squamous cell lung cancer diagnosed on 01/01/2022. Previous history of respiratory failure requiring intubation and mechanical ventilation tracheostomy and PEG tube placement Generalized anxiety disorder. Severe COPD, FEV1 less than 35%. Degenerative joint disease Acute kidney injury, suspect hypovolemia, increase his IV fluid up to 75 mL/h Recommendation: Continue ventilatory support, considering the patient is wheezing today, I have no plans to wean him or extubated Continue bronchodilators Continue hemodynamic support as needed patient is now off norepinephrine Continue Zosyn. Continue Solu-Medrol. GI and DVT prophylaxis Nutritional support/enteral feeding We'll continue daily trials of weaning however no plans to do this today Continue IV fluids, saline at 75 mL per hour Discussed his overall condition with family at bedside including his and his daughter and they agreed to proceed sometime next week with tracheostomy and PEG tube placement and eventual placement in count includes the [facility] care [facility]. Family was made aware of his poor prognosis and history of medical illness including his severe end-stage COPD and underlying bronchogenic carcin liliana/squamous cells lung cancer diagnosed in December via bronchoscopy. Critical care time is over 30 minutes Time with Patient: Greater than 30
--- NOTE | 2022-04-03 11:53 | P.PN ---
Subjective HISTORY OF PRESENTING ILLNESS Patient is a pleasant 71-year-old male with history of advanced COPD, non-small cell lung cancer diagnosed December 2021, anemia, pneumonia, previous ventilation and tracheostomy prior normal coronary arteries by heart catheterization in 2019 who presents with respiratory distress. Patient currently intubated and sedated and history is supplied by chart. Patient not been eating well for the last 2 days and had some sensation of feeling food stuck in his throat and has a chronic cough. Apparently there was only some chest pain with coughing. Patient presented and was in respiratory distress with worsening CO2 and therefore intubated. Patient briefly on norepinephrine however this has been weaned. Currently on FiO2 35% with a PEEP of 5. Cardiology was consulted for elevated troponins. Blood work shows hemoglobin 11.1 white blood cell 8.2 creatinine 0.87, troponin 0.083, 0.093, proBNP 1000 490. EKG shows sinus tachycardia, right axis deviation, nonspecific minimal ST depressions in the lateral leads. 04/03 Patient seen and examined. Patient on low-dose norepinephrine. Echocardiogram pending. D-dimer noted to be elevated at 4. Could be related to primary malignancy however possibility of pulmonary embolism in addition to chronic lung issues. REVIEW OF SYSTEMS At the time of my exam: Unable to obtain secondary to intubated and sedated. PHYSICAL EXAMINATION Vital signs reviewed. CONSTITUTIONAL: No apparent distress. HEENT: Head is normocephalic. Pupils are equal, round. Sclerae anicteric. Mucous membranes of the mouth are moist. No JVD. No carotid bruit. CHEST EXAMINATION: Lungs are clear to auscultation. No chest wall tenderness is noted on palpation or with deep breathing. HEART EXAMINATION: Regular rate and rhythm. S1, S2 heard. No murmurs, gallops or rub. ABDOMEN: Soft, nontender. Positive bowel sounds. EXTREMITIES: 2+ peripheral pulses, no lower extremity edema and no calf tenderness. NEUROLOGIC EXAMINATION: Patient is sedated and sedated on ventilator ASSESSMENT 1. non-STEMI, type II mechanism related to hypoxia 2. Acute on chronic respiratory failure related to COPD exacerbation 3. Hypotension briefly on norepinephrine likely related to sedation 4. Normal coronary arteries by heart catheterization 2018 5. Elevated proBNP 1500 appears euvolemic 6. Anemia 7. Acute kidney injury, likely related to hypotensive episodes and decreased intervascular volume 8. Elevated d-dimer PLAN Await 2-D echo. Previous angiography from 2019 showed normal coronary arteries do not suspect acute coronary syndrome. Elevated d-dimer which may be related to malignancy however higher risk for possible pulmonary embolism. Check CTA as creatinine appears stable and recei ving IV fluids. Further recommendations to follow. Objective - Vital Signs Vital signs: Vital Signs Temp 98.4 F 04/03/22 08:00 Pulse 80 04/03/22 11:14 Resp 20 04/03/22 11:00 BP 124/60 04/03/22 11:00 Pulse Ox 94 L 04/03/22 11:00 FiO2 35 04/03/22 11:38 Intake & Output 04/02/22 04/03/22 04/03/22 18:59 06:59 18:59 Intake Total 0431.933 8884.058 286 Output Total 400 565 80 Balance 742.437 744.058 206 Weight 71 kg 73 kg Intake: IV 733 746 126 0.9 kvo 110 20 Sodium Chloride 0.9% 1, 700 600 100 000 ml @ 50 mls/hr IV . Q20H NESHA Rx#:[id number] pressure bag 33 36 6 Intake, IV Titration 409.437 193.058 100 Amount Norepinephrine 4 mg In 84.722 25.018 0 Sodium Chloride 0.9% 250 ml @ 0.05 MCG/KG/MIN 12. 961 mls/hr IV .[id number] NESHA Rx#:[id number] Piperacillin-Tazobactam 3 200 .375 gm In Sodium Chloride 0.9% 100 ml @ 25 mls/hr IVPB Q8HR NESHA Rx# :[id number] propofoL 1,000 mg In 124.715 168.04 100 Empty Bag 1 bag @ 5 MCG/ KG/MIN 2.041 mls/hr IV . Q24H NESHA Rx#:[id number] Tube Feeding 280 60 Other 90 Output: Urine 400 565 80 Other: Voiding Method Indwelling Catheter Indwelling Catheter Indwelling Catheter ABP, PAP, CO, CI - Last Documented Arterial Blood Pressure 137/63 - Labs CBC & Chem 7: 04/03/22 04:10 04/03/22 04:10 Labs: Abnormal Lab Results - Last 24 Hours (Table) 04/02/22 04/02/22 04/02/22 Range/Units 04:10 11:49 15:02 RBC (4.30-5.90) m/uL Hgb (13.0-17.5) gm/dL Hct (39.0-53.0) % MCV (80.0-100.0) fL MCHC (31.0-37.0) g/dL RDW (11.5-15.5) % Lymphocytes # (Manual) (1.0-4.8) k/uL Metamyelocytes # (Man) (0) k/uL Nucleated RBCs (0-0) /100 WBC D-Dimer 4.14 H (<0.60) mg/L FEU ABG pH (7.35-7.45) ABG pCO2 (35-45) mmHg ABG HCO3 (21-25) mmol/L ABG Total CO2 (19-24) mmol/L ABG O2 Saturation (94-97) % BUN (9-20) mg/dL Creatinine (0.66-1.25) mg/dL Glucose (74-99) mg/dL POC Glucose (mg/dL) 225 H (70-110) mg/dL Procalcitonin 1.19 H (0.02-0.09) ng/mL 04/02/22 04/02/22 04/02/22 Range/Units 16:46 19:57 23:48 RBC (4.30-5.90) m/uL Hgb (13.0-17.5) gm/dL Hct (39.0-53.0) % MCV (80.0-100.0) fL MCHC (31.0-37.0) g/dL RDW (11.5-15.5) % Lymphocytes # (Manual) (1.0-4.8) k/uL Metamyelocytes # (Man) (0) k/uL Nucleated RBCs (0-0) /100 WBC D-Dimer (<0.60) mg/L FEU ABG pH (7.35-7.45) ABG pCO2 (35-45) mmHg ABG HCO3 (21-25) mmol/L ABG Total CO2 (19-24) mmol/L ABG O2 Saturation (94-97) % BUN (9-20) mg/dL Creatinine (0.66-1.25) mg/dL Glucose (74-99) mg/dL POC Glucose (mg/dL) 135 H 151 H 186 H (70-110) mg/dL Procalcitonin (0.02-0.09) ng/mL 04/03/22 04/03/22 04/03/22 Range/Units 04:10 04:10 04:22 RBC 2.90 L (4.30-5.90) m/uL Hgb 8.8 L (13.0-17.5) gm/dL Hct 29.3 L (39.0-53.0) % MCV 101.1 H (80.0-100.0) fL MCHC 30.0 L (31.0-37.0) g/dL RDW 20.9 H (11.5-15.5) % Lymphocytes # (Manual) 0.15 L (1.0-4.8) k/uL Metamyelocytes # (Man) 0.29 H (0) k/uL Nucleated RBCs 5 H (0-0) /100 WBC D-Dimer (<0.60) mg/L FEU ABG pH (7.35-7.45) ABG pCO2 (35-45) mmHg ABG HCO3 (21-25) mmol/L ABG Total CO2 (19-24) mmol/L ABG O2 Saturation (94-97) % BUN 67 H (9-20) mg/dL Creatinine 1.36 H (0.66-1.25) mg/dL Glucose 164 H (74-99) mg/dL POC Glucose (mg/dL) 173 H (70-110) mg/dL Procalcitonin (0.02-0.09) ng/mL 04/03/22 04/03/22 Range/Units 05:40 06:58 RBC (4.30-5.90) m/uL Hgb (13.0-17.5) gm/dL Hct (39.0-53.0) % MCV (80.0-100.0) fL MCHC (31.0-37.0) g/dL RDW (11.5-15.5) % Lymphocytes # (Manual) (1.0-4.8) k/uL Metamyelocytes # (Man) (0) k/uL Nucleated RBCs (0-0) /100 WBC D-Dimer (<0.60) mg/L FEU ABG pH 7.34 L (7.35-7.45) ABG pCO2 56 H (35-45) mmHg ABG HCO3 30 H (21-25) mmol/L ABG Total CO2 32 H (19-24) mmol/L ABG O2 Saturation 98.1 H (94-97) % BUN (9-20) mg/dL Creatinine (0.66-1.25) mg/dL Glucose (74-99) mg/dL POC Glucose (mg/dL) 227 H (70-110) mg/dL Procalcitonin (0.02-0.09) ng/mL Microbiology - Last 24 Hours (Table) 04/01/22 03:48 Gram Stain - Final Sputum Sputum Culture - Final Serratia marcescens Haemophilus influenzae 04/01/22 09:09 Blood Culture - Preliminary Blood No Growth after 48 hours 04/01/22 11:54 Blood Culture - Preliminary Blood No Growth after 24 hours 04/01/22 10:09 Gram Stain - Preliminary Sputum Sputum Culture - Preliminary Gram Neg Bacilli
[2022-04-03 13:21] LABS: Glucose,Whole Blood 228 mg/dL (70-110)
[2022-04-03] MEDS: SODIUM CHLORIDE 0.9% 1,000 ML IV SCH (13:25)
[2022-04-03 15:06] LABS: Glucose,Whole Blood 226 mg/dL (70-110)
--- NOTE | 2022-04-03 17:14 | CT ---
EXAMINATION TYPE: CT angio chest DATE OF EXAM: 04/03/2022 COMPARISON: None HISTORY: Rule ou PE CT DLP: 430.3 mGycm Automated exposure control for dose reduction was used. CONTRAST: Performed with IV Contrast, patient injected with 100 mL of Isovue 370. Images obtained from the thoracic inlet to the diaphragm with the IV contrast Three-D postprocessed images. There is bullous pulmonary emphysema. There is some coarse reticular density in both lungs. Is massli ke infiltrate at the left pulmonary hilum that measures 4.5 cm. Thoracic aorta is atheromatous. There is no evidence of filling defect in the pulmonary arteries. There is no pleural effusion. Heart size is normal. There is some mild lingula infiltrate and atelectasis anteriorly. This is masslike a nd measures 3.5 cm. There is irregular 2 cm somewhat stellate infiltrate in the lateral right lower l obe. The thoracic spine shows no significant compression deformity. There is intact sternum. IMPRESSION: No evidence of pulmonary embolism. Mass at the left pulmonary hilum consistent with tumor. Masslike i nfiltrate in the lingula left upper lobe. Unchanged. There is a new infiltrate lateral right lower lobe which is consistent with pneumonia compared to ol d exam. Pulmonary emphysema.
--- NOTE | 2022-04-03 17:37 | P.PN ---
Subjective Progress Note Date: 04/02/22 71 years old male with past medical history of COPD, Hearing Disorder / Deafness, Hyperlipidemia, Osteoarthritis, lung cancer diagnosed on 11/2021. Patient presents because of dyspnea. Patient currently is been intubated in the ICU and information were obtained from staff, records and family at bedside both and daughter. As per family patient has been having difficulty breathing all the time and y esterday evening around 10 PM started getting worse so he decided to come to emergency room. Patient has not been eating well for the last 2 days he was feeling food stuck in his throat. patient has chronic cough and creamy phlegm. He had chest pain only with coughing. Yesterday was getting into the bathroom when he felt so weak and he had to light on the floor on his knees. Also patient has been complaining of from diarrhea over the last 2 days with 3-4 puffs per day. No vomiting. History of getting chemo and radiotherapy last dose was less than a week ago for his left lung cancer. They think his oncologist is Dr. arauz and radiation oncologist is Dr. Patricia. His investigative analyst is Dr. Short, and he is on 2 L oxygen via nasal cannula He came through the emergency room and the floor he got worse and acidotic, eventually he was intubated at to the ICU. He got one bolus of normal saline 1000 mL. Distal have low urine output. Objective - Vital Signs Vital signs: Vital Signs Temp 97.2 F L 04/02/22 08:00 Pulse 69 04/02/22 11:10 Resp 39 H 04/02/22 10:00 BP 130/79 04/02/22 09:30 Pulse Ox 94 L 04/02/22 10:00 FiO2 35 04/02/22 11:10 Intake & Output 04/01/22 04/02/22 04/02/22 18:59 06:59 18:59 Intake Total 2363.454 1962.046 434.923 Output Total 380 430 95 Balance 1807.571 3543.046 339.923 Weight 68.039 kg 71 kg 71 kg Intake: IV 1664 1536 309 Sodium Chloride 0.9% 1, 1625 1500 300 000 ml @ 50 mls/hr IV . Q20H [facility] Rx#:[id number] pressure bag 39 36 9 Intake, IV Titration 699.454 426.046 125.923 Amount Dexmedetomidine/0.9% NaCl 47.174 (Pmx) 400 mcg In Empty Bag 1 bag @ 0.2 MCG/KG/HR 3.402 mls/hr IV .Q24H [facility] Rx#:[id number] Norepinephrine 4 mg In 406.557 142.919 0 Sodium Chloride 0.9% 250 ml @ 0.05 MCG/KG/MIN 12. 961 mls/hr IV .[id number] [facility] Rx#:[id number] Piperacillin-Tazobactam 3 200 100 100 .375 gm In Sodium Chloride 0.9% 100 ml @ 25 mls/hr IVPB Q8HR [facility] Rx# :[id number] propofoL 1,000 mg In 45.723 183.127 25.923 Empty Bag 1 bag @ 5 MCG/ KG/MIN 2.041 mls/hr IV . Q24H [facility] Rx#:[id number] Output: Urine 380 430 95 Other: Voiding Method Indwelling Catheter Indwelling Catheter Indwelling Catheter ABP, PAP, CO, CI - Last Documented Arterial Blood Pressure 96/47 - Exam -GENERAL: The patient is alert intubated and sedated HEENT: Pupils are round and equally reacting to light. EOMI. No scleral icterus. No conjunctival pallor. Normocephalic, atraumatic. No pharyngeal erythema. No thyromegaly. CARDIOVASCULAR: S1 and S2 present. No murmurs, rubs, or gallops. PULMONARY: Chest is clear to auscultation, no wheezing or crackles. Decreased air entry bilaterally ABDOMEN: Soft, nontender, nondistended, normoactive bowel sounds. No palpable organomegaly. MUSCULOSKELETAL: No joint swelling or deformity. EXTREMITIES: No cyanosis, clubbing, or pedal edema. NEUROLOGICAL: Gross neurological examination did not reveal any focal deficits. SKIN: No rashes. no petechiae. - Labs CBC & Chem 7: 04/03/22 04:10 04/03/22 04:10 Labs: Abnormal Lab Results - Last 24 Hours (Table) 04/01/22 04/01/22 04/01/22 Range/Units 11:53 20:07 23:34 RBC (4.30-5.90) m/uL Hgb (13.0-17.5) gm/dL Hct (39.0-53.0) % MCV (80.0-100.0) fL MCHC (31.0-37.0) g/dL RDW (11.5-15.5) % Lymphocytes # (1.0-4.8) k/uL ABG pH (7.35-7.45) ABG pCO2 (35-45) mmHg ABG HCO3 (21-25) mmol/L ABG Total CO2 (19-24) mmol/L ABG O2 Saturation (94-97) % BUN (9-20) mg/dL Creatinine (0.66-1.25) mg/dL Glucose (74-99) mg/dL POC Glucose (mg/dL) 183 H 134 H 191 H (70-110) mg/dL 04/02/22 04/02/22 04/02/22 Range/Units 04:10 04:10 04:15 RBC 2.91 L (4.30-5.90) m/uL Hgb 8.7 L D (13.0-17.5) gm/dL Hct 29.4 L (39.0-53.0) % MCV 101.0 H (80.0-100.0) fL MCHC 29.6 L (31.0-37.0) g/dL RDW 20.3 H (11.5-15.5) % Lymphocytes # 0.2 L (1.0-4.8) k/uL ABG pH (7.35-7.45) ABG pCO2 (35-45) mmHg ABG HCO3 (21-25) mmol/L ABG Total CO2 (19-24) mmol/L ABG O2 Saturation (94-97) % BUN 61 H (9-20) mg/dL Creatinine 1.32 H (0.66-1.25) mg/dL Glucose 148 H (74-99) mg/dL POC Glucose (mg/dL) 153 H (70-110) mg/dL 04/02/22 04/02/22 04/02/22 Range/Units 05:38 06:56 06:58 RBC (4.30-5.90) m/uL Hgb (13.0-17.5) gm/dL Hct (39.0-53.0) % MCV (80.0-100.0) fL MCHC (31.0-37.0) g/dL RDW (11.5-15.5) % Lymphocytes # (1.0-4.8) k/uL ABG pH 7.32 L (7.35-7.45) ABG pCO2 55 H (35-45) mmHg ABG HCO3 29 H (21-25) mmol/L ABG Total CO2 30 H (19-24) mmol/L ABG O2 Saturation 98.1 H (94-97) % BUN (9-20) mg/dL Creatinine (0.66-1.25) mg/dL Glucose (74-99) mg/dL POC Glucose (mg/dL) 292 H 189 H (70-110) mg/dL Microbiology - Last 24 Hours (Table) 04/01/22 10:09 Gram Stain - Preliminary Sputum Sputum Culture - Preliminary 04/01/22 03:48 Gram Stain - Preliminary Sputum Sputum Culture - Preliminary Assessment and Plan Assessment: Acute COPD exacerbation Left hilar mass consistent with his history of lung cancer since 11/2021 Acute hypoxic hypercapnic respiratory failure chronic hypoxic respiratory failure Left Lung cancer, undergoing chemoradiotherapy Hearing difficulty Hyperlipidemia Osteoarthritis Elevated troponin, rule out cardiac causes Plan: Continue with intubation and mechanical ventilation pulmonary/critical care unit Continue with steroids and bronchodilators. He was started on Solu-Medrol 60 mg every 6 hours Pulmonary consult Patient will need swallow evaluation when he is extubated Cardiology consult. Continue with normal saline infusion. Bronchodilator. Check pro-calcitonin Give one bolus of normal saline and monitor input and output Labs and medication were reviewed.. Continue same treatment. Continue with symptomatic treatment. Resume home medication. Monitor lytes and vitals. DVT and GI prophylaxis. Further recommendations as per clinical course of the patient DVT prophylaxis: Subcutaneous heparin GI Prophylaxis: Ppi Prognosis is guarded
--- NOTE | 2022-04-03 17:51 | P.PN ---
Subjective Progress Note Date: 04/03/22 Principal diagnosis: Possible sepsis with hypotension vs secondary to hypovolemia Acute on chronic hypoxic and hypercapnic respiratory failure Suspect aspiration pneumonia Acute exacerbation of COPD History of squamous cell lung cancer diagnosed on 01/01/2022 71 years old male with past medical history of COPD, Hearing Disorder / Deafness, Hyperlipidemia, Osteoarthritis, lung cancer diagnosed on 11/2021. Patient presents because of dyspnea. Patient currently is been intubated in the ICU and information were obtained from staff, records and family at bedside both and daughter. As per family patient has been having difficulty breathing all the time and yesterday evening around 10 PM started getting worse so he decided to come to emergency room. Patient has not been eating well for the last 2 days he was feeling food stuck in his throat. patient has chronic cough and creamy phlegm. He had chest pain only with coughing. Yesterday was getting into the bathroom when he felt so weak and he had to light on the floor on his knees. Also patient has been complaining of from diarrhea over the last 2 days with 3-4 puffs per day. No vomiting. History of getting chemo and radiotherapy last dose was less than a week ago for his left lung cancer. They think his oncologist is Dr. arauz and radiation oncologist is Dr. Patricia. His glove presser is Dr. Short, and he is on 2 L oxygen via nasal cannula He came through the emergency room and the floor he got worse and acidotic, eventually he was intubated at to the ICU. He got one bolus of normal saline 1000 mL. Distal have low urine output. 04/03/2022 Patient is seen and evaluated in room at bedside; remains in the ICU intubated and mechanically ventilated. His ABG showed a pO2 of 106 pCO2 56 pH of 7.34. Patient remains on 35% FiO2. Patient is off norepinephrine he remains on normal saline at 50 mL an hour and on propofol at 50 mcg/kg/m. Chest x-rays showing slight improvement in his bilateral infiltrates. Left hilar mass remains the same. Hence I have no plans to wean the patient today, and the family has made a decision that the patient does not wean in the next few days, they would like him to proceed with tracheostomy and PEG tube placement and eventual placement. We will decide this early next week in the meantime patient is not related to believe that extubated. CBC is relatively unremarkable WBC 7.3 hemoglobin is 8.8, basic metabolic profile is relatively normal, BUN is 67 creatinine is 1.36 IV fluids increased per email production specialist recommendations No plans for extubation; continue with ventilator support, continue bronchodilator therapy; patient remains on IV Zosyn and Solu-Medrol Objective - Vital Signs Vital signs: Vital Signs Temp 98.4 F 04/03/22 08:00 Pulse 85 04/03/22 08:10 Resp 20 04/03/22 08:00 BP 101/71 04/03/22 07:00 Pulse Ox 97 04/03/22 08:00 FiO2 35 04/03/22 08:00 Intake & Output 04/02/22 04/03/22 04/03/22 18:59 06:59 18:59 Intake Total 9720.536 8843.058 186 Output Total 400 565 80 Balance 742.437 744.058 106 Weight 71 kg 73 kg Intake: IV 733 746 126 0.9 kvo 110 20 Sodium Chloride 0.9% 1, 700 600 100 000 ml @ 50 mls/hr IV . Q20H [facility] Rx#:[id number] pressure bag 33 36 6 Intake, IV Titration 409.437 193.058 Amount Norepinephrine 4 mg In 84.722 25.018 Sodium Chloride 0.9% 250 ml @ 0.05 MCG/KG/MIN 12. 961 mls/hr IV .[id number] [facility] Rx#:[id number] Piperacillin-Tazobactam 3 200 .375 gm In Sodium Chloride 0.9% 100 ml @ 25 mls/hr IVPB Q8HR [facility] Rx# :[id number] propofoL 1,000 mg In 124.715 168.04 Empty Bag 1 bag @ 5 MCG/ KG/MIN 2.041 mls/hr IV . Q24H [facility] Rx#:[id number] Tube Feeding 280 60 Other 90 Output: Urine 400 565 80 Other: Voiding Method Indwelling Catheter Indwelling Catheter Indwelling Catheter ABP, PAP, CO, CI - Last Documented Arterial Blood Pressure 99/57 - Exam -GENERAL: The patient is alert intubated and sedated HEENT: Pupils are round and equally reacting to light. EOMI. No scleral icterus. No conjunctival pallor. Normocephalic, atraumatic. No pharyngeal erythema. No thyromegaly. CARDIOVASCULAR: S1 and S2 present. No murmurs, rubs, or gallops. PULMONARY: Chest is clear to auscultation, no wheezing or crackles. Decreased air entry bilaterally ABDOMEN: Soft, nontender, nondistended, normoactive bowel sounds. No palpable organomegaly. MUSCULOSKELETAL: No joint swelling or deformity. EXTREMITIES: No cyanosis, clubbing, or pedal edema. NEUROLOGICAL: Gross neurological examination did not reveal any focal deficits. SKIN: No rashes. no petechiae. - Labs CBC & Chem 7: 04/03/22 04:10 04/03/22 04:10 Labs: Abnormal Lab Results - Last 24 Hours (Table) 04/02/22 04/02/22 04/02/22 Range/Units 04:10 11:49 15:02 RBC (4.30-5.90) m/uL Hgb (13.0-17.5) gm/dL Hct (39.0-53.0) % MCV (80.0-100.0) fL MCHC (31.0-37.0) g/dL RDW (11.5-15.5) % Lymphocytes # (Manual) (1.0-4.8) k/uL Metamyelocytes # (Man) (0) k/uL Nucleated RBCs (0-0) /100 WBC D-Dimer 4.14 H (<0.60) mg/L FEU ABG pH (7.35-7.45) ABG pCO2 (35-45) mmHg ABG HCO3 (21-25) mmol/L ABG Total CO2 (19-24) mmol/L ABG O2 Saturation (94-97) % BUN (9-20) mg/dL Creatinine (0.66-1.25) mg/dL Glucose (74-99) mg/dL POC Glucose (mg/dL) 225 H (70-110) mg/dL Procalcitonin 1.19 H (0.02-0.09) ng/mL 04/02/22 04/02/22 04/02/22 Range/Units 16:46 19:57 23:48 RBC (4.30-5.90) m/uL Hgb (13.0-17.5) gm/dL Hct (39.0-53.0) % MCV (80.0-100.0) fL MCHC (31.0-37.0) g/dL RDW (11.5-15.5) % Lymphocytes # (Manual) (1.0-4.8) k/uL Metamyelocytes # (Man) (0) k/uL Nucleated RBCs (0-0) /100 WBC D-Dimer (<0.60) mg/L FEU ABG pH (7.35-7.45) ABG pCO2 (35-45) mmHg ABG HCO3 (21-25) mmol/L ABG Total CO2 (19-24) mmol/L ABG O2 Saturation (94-97) % BUN (9-20) mg/dL Creatinine (0.66-1.25) mg/dL Glucose (74-99) mg/dL POC Glucose (mg/dL) 135 H 151 H 186 H (70-110) mg/dL Procalcitonin (0.02-0.09) ng/mL 04/03/22 04/03/22 04/03/22 Range/Units 04:10 04:10 04:22 RBC 2.90 L (4.30-5.90) m/uL Hgb 8.8 L (13.0-17.5) gm/dL Hct 29.3 L (39.0-53.0) % MCV 101.1 H (80.0-100.0) fL MCHC 30.0 L (31.0-37.0) g/dL RDW 20.9 H (11.5-15.5) % Lymphocytes # (Manual) 0.15 L (1.0-4.8) k/uL Metamyelocytes # (Man) 0.29 H (0) k/uL Nucleated RBCs 5 H (0-0) /100 WBC D-Dimer (<0.60) mg/L FEU ABG pH (7.35-7.45) ABG pCO2 (35-45) mmHg ABG HCO3 (21-25) mmol/L ABG Total CO2 (19-24) mmol/L ABG O2 Saturation (94-97) % BUN 67 H (9-20) mg/dL Creatinine 1.36 H (0.66-1.25) mg/dL Glucose 164 H (74-99) mg/dL POC Glucose (mg/dL) 173 H (70-110) mg/dL Procalcitonin (0.02-0.09) ng/mL 04/03/22 04/03/22 Range/Units 05:40 06:58 RBC (4.30-5.90) m/uL Hgb (13.0-17.5) gm/dL Hct (39.0-53.0) % MCV (80.0-100.0) fL MCHC (31.0-37.0) g/dL RDW (11.5-15.5) % Lymphocytes # (Manual) (1.0-4.8) k/uL Metamyelocytes # (Man) (0) k/uL Nucleated RBCs (0-0) /100 WBC D-Dimer (<0.60) mg/L FEU ABG pH 7.34 L (7.35-7.45) ABG pCO2 56 H (35-45) mmHg ABG HCO3 30 H (21-25) mmol/L ABG Total CO2 32 H (19-24) mmol/L ABG O2 Saturation 98.1 H (94-97) % BUN (9-20) mg/dL Creatinine (0.66-1.25) mg/dL Glucose (74-99) mg/dL POC Glucose (mg/dL) 227 H (70-110) mg/dL Procalcitonin (0.02-0.09) ng/mL Microbiology - Last 24 Hours (Table) 04/01/22 11:54 Blood Culture - Preliminary Blood No Growth after 24 hours 04/01/22 10:09 Gram Stain - Preliminary Sputum Sputum Culture - Preliminary Gram Neg Bacilli 04/01/22 03:48 Gram Stain - Preliminary Sputum Sputum Culture - Preliminary Gram Neg Bacilli 04/01/22 09:09 Blood Culture - Preliminary Blood No Growth after 24 hours Assessment and Plan Assessment: Acute COPD exacerbation Left hilar mass consistent with his history of lung cancer since 11/2021 Acute hypoxic hypercapnic respiratory failure chronic hypoxic respiratory failure Left Lung cancer, undergoing chemoradiotherapy Hearing difficulty Hyperlipidemia Osteoarthritis Elevated troponin, rule out cardiac causes Plan: Continue with intubation and mechanical ventilation pulmonary/critical care unit Continue with steroids and bronchodilators. He was started on Solu-Medrol 60 mg every 6 hours Pulmonary consult Patient will need swallow evaluation when he is extubated Cardiology consult. Continue with normal saline infusion. Bronchodilator. Check pro-calcitonin Give one bolus of normal saline and monitor input and output Labs and medication were reviewed.. Continue same treatment. Continue with symptomatic treatment. Resume home medication. Monitor lytes and vitals. DVT and GI prophylaxis. Further recommendations as per clinical course of the patient DVT prophylaxis: Subcutaneous heparin GI Prophylaxis: Ppi Prognosis is guarded
--- NOTE | 2022-04-03 18:07 | CA ---
Transthoracic Echo Report Name: Anuj Marcum Age: 71 Gender: M : 1950 Exam Date: 04/03/2022 12:25 Exam Location: [facility] Ht (in): 69 Wt (lb): 160 Ordering Physician: Corby Eng DO ([email or web address]) Attending/Referring Phys: Jean Marie Patricia MD Greenhouse Superintendent Emelina Manuel RDCS Procedure CPT: Indications: re: SOB Cardiac Hx: Technical Quality: Fair Contrast 1: Total Dose (mL): Contrast 2: Total Dose (mL): MEASUREMENTS (Male / Female) Normal Values 2D ECHO LV Diastolic Diameter PLAX 4.0 cm 4.2 - 5.9 / 3.9 - 5.3 cm LV Systolic Diameter PLAX 3.8 cm IVS Diastolic Thickness 0.9 cm 0.6 - 1.0 / 0.6 - 0.9 cm LVPW Diastolic Thickness 1.0 cm 0.6 - 1.0 / 0.6 - 0.9 cm LV Relative Wall Thickness 0.5 RV Internal Dim ED PLAX 3.7 cm LA Volume 43.1 cm??? 18 - 58 / 22 - 52 cm??? M-MODE Aortic Root Diameter MM 3.3 cm LA Systolic Diameter MM 2.1 cm LA Ao Ratio MM 0.6 MV E Point Septal Separation 1.2 cm AV Cusp Separation MM 2.0 cm DOPPLER AV Peak Velocity 93.6 cm/s AV Peak Gradient 3.5 mmHg AI Peak Velocity 127.5 cm/s AI Peak Gradient 6.5 mmHg AI Pressure Half Time 730.8 ms MV Area PHT 3.9 cm??? Mitral E Point Velocity 51.2 cm/s Mitral A Point Velocity 48.4 cm/s Mitral E to A Ratio 1.1 MV Deceleration Time 196.6 ms MV E' Velocity 4.9 cm/s Mitral E to MV E' Ratio 10.5 TR Peak Velocity 250.3 cm/s TR Peak Gradient 25.1 mmHg Right Ventricular Systolic Press 43.2 mmHg PV Peak Velocity 75.1 cm/s PV Peak Gradient 2.3 mmHg PI Peak Gradient 15.3 mmHg FINDINGS Left Ventricle Left ventricular ejection fraction is estimated at 25-30 %. Global hypokinesis. Left ventricular wall thickness normal. Left ventricular cavity size normal. Right Ventricle Moderate pulmonary hypertension. The right ventricle is moderately dilated. There is right ventricular enlargement consistent with right ventricular volume overload. Right Atrium The right atrium is normal in size. Left Atrium The left atrium is normal in size. Mitral Valve Structurally normal mitral valve without significant stenosis or prolapse. There is mild mitral regurgitation. Aortic Valve Structurally normal aortic valve without significant sclerosis or stenosis. There is no aortic regurgitation. Tricuspid Valve Structurally normal tricuspid valve without significant stenosis. Pulmonary artery systolic pressure is normal. Mild tricuspid regurgitation. Pulmonic Valve Structurally normal pulmonic valve without significant stenosis. There is no pulmonic regurgitation. Pericardium Normal pericardium without effusion. Aorta Normal aortic root dimension. CONCLUSIONS Left ventricular ejection fraction 25-30% with global hypokinesis RVSP 43 Moderately dilated right ventricle Mild mitral regurgitation Mild tricuspid regurgitation Previewed by: Dr. Corby Eng DO (Electronically Signed) Final Date: 03 April 2022 18:07
[2022-04-03 19:12] LABS: Glucose,Whole Blood 152 mg/dL (70-110)
[2022-04-03] MEDS: LATANOPROST 0.005% OPHTH DROPS 2.5 ML BTL BOTH EYES SCH (21:08)
[2022-04-03] MEDS: ATORVASTATIN 10 MG TAB PO SCH (21:08)
[2022-04-03] MEDS: CALCIUM CARBONATE 500 MG CHEWABLE PO SCH (21:08)
[2022-04-03] MEDS: MONTELUKAST 10 MG TAB PO SCH (21:09)
[2022-04-03 23:48] LABS: Glucose,Whole Blood 207 mg/dL (70-110)
[2022-04-04 03:26] LABS: Glucose,Whole Blood 231 mg/dL (70-110)
[2022-04-04] MEDS: SODIUM CHLORIDE 0.9% 1,000 ML IV SCH ×2 (03:28→13:58)
[2022-04-04] MEDS: INSULIN ASPART (NovoLOG) 100 UNIT/ML VIAL SQ SCH ×6 (03:29→23:27)
[2022-04-04 04:24] LABS: ALT 40 U/L (4-49); AST 26 U/L (17-59); African American GFR (CKD) >90 (>60 ml/min/1.73 sqM); Albumin 2.6 g/dL (3.5-5.0); Alkaline Phosphatase 136 U/L (38-126); Anion Gap 8 mmol/L; Blood Urea Nitrogen 60 mg/dL (9-20); Carbon Dioxide 30 mmol/L (22-30); Chloride 106 mmol/L (98-107); Glucose 215 mg/dL (74-99); Non-African American GFR(CKD) >90 (>60 ml/min/1.73 sqM); Potassium 4.9 mmol/L (3.5-5.1); Sodium 144 mmol/L (137-145); Total Bilirubin 0.1 mg/dL (0.2-1.3); Total Protein 5.1 g/dL (6.3-8.2)
[2022-04-04 04:29] LABS: Anisocytosis Moderate; Basophils % (A) 0 %; Eosinophils % (A) 0 %; HCT 32.7 % (39.0-53.0); HGB 9.7 gm/dL (13.0-17.5); Hypochromasia Marked; Lymphocytes # (A) 0.3 k/uL (1.0-4.8); Lymphocytes % (A) 3 %; MCH 30.3 pg (25.0-35.0); MCHC 29.5 g/dL (31.0-37.0); MCV 102.7 fL (80.0-100.0); Macrocytosis Marked; Mean Platelet Volume 7.9; Monocytes # (A) 0.2 k/uL (0-1.0); Monocytes % (A) 3 %; Neutrophils # (A) 8.1 k/uL (1.3-7.7); Neutrophils % (A) 93 %; Platelet Count 468 k/uL (150-450); RBC 3.18 m/uL (4.30-5.90); WBC 8.8 k/uL (3.8-10.6)
[2022-04-04 05:37] LABS: ABG Base Excess 5.4 mmol/L; ABG HCO3 32 mmol/L (21-25); ABG Oxygen Saturation 92.7 % (94-97); ABG PCO2 67 mmHg (35-45); ABG PH 7.29 (7.35-7.45); ABG PO2 69 mmHg (83-108); ABG TCO2 34 mmol/L (19-24); Allen Test Performed? Yes
[2022-04-04 06:00] LABS: Large Platelets Present; Polychromasia Present
[2022-04-04 06:56] LABS: Glucose,Whole Blood 199 mg/dL (70-110)
[2022-04-04] MEDS: IPRATROPIUM-ALBUTEROL 3 ML NEB INHALATION SCH ×4 (07:26→19:10)
[2022-04-04] MEDS: FORMOTEROL FUMARATE 20 MCG/2 ML NEBU INHALATION SCH ×2 (07:26→19:10)
[2022-04-04] MEDS: BUDESONIDE 1 MG/2 ML NEBU INHALATION SCH ×2 (07:26→19:10)
--- NOTE | 2022-04-04 07:30 | XR ---
EXAMINATION TYPE: XR chest 1V portable DATE OF EXAM: 04/04/2022 5:44 AM COMPARISON: CTA chest 04/03/2022, chest x-ray 04/03/2022 TECHNIQUE: XR chest 1V portable . CLINICAL INDICATION:Male, 71 years old with history of Tube placement; FINDINGS: Lungs/Pleura: Emphysematous and chronic fibrotic changes are present throughout the lungs bilaterally . Redemonstration of fibrotic, masslike density in the left hilum, better characterized on CT chest f rom one day prior. Focal right lower lobe irregular airspace opacity with irregular margins. No pneum othorax or sizable pleural effusion. Pulmonary vascularity: Unremarkable. Heart/mediastinum: Cardiomediastinal silhouette is unremarkable. Atherosclerotic calcifications are seen in the aorta. Musculoskeletal: No acute osseous pathology. Other findings: None Lines/Tubes: Endotracheal tube with distal tip 4.5 cm above the artemio Nasogastric tube with its distal tip and side-port projecting under the diaphragm. IMPRESSION: 1. Redemonstration of masslike opacity in the left pulmonary hilum, better characterized on earlier C TA chest. 2. Irregular right lower lobe airspace opacity. 3. Endotracheal and nasogastric tubes in place.
[2022-04-04] MEDS: GUAIFENESIN 400 MG PO SCH ×2 (08:13→20:42)
[2022-04-04] MEDS: HEPARIN SODIUM,PORCINE/PF 5,000 UNIT/0.5 ML SYRINGE SQ SCH ×2 (09:01→20:43)
[2022-04-04] MEDS: PIPERACILLIN-TAZOBACTAM 3.375 GM in SODIUM CHLORIDE 0.9% 100 ML IVPB SCH ×3 (09:01→23:29)
[2022-04-04] MEDS: CHLORHEXIDINE GLUCONATE 15 ML CUP MUCOUS MEM SCH ×2 (09:01→20:42)
[2022-04-04] MEDS: PANTOPRAZOLE 40 MG/10 ML VIAL IVP SCH (09:02)
[2022-04-04] MEDS: GABAPENTIN 300 MG CAP PO SCH ×3 (09:02→20:44)
[2022-04-04] MEDS: MULTIVITAMINS, THERA 1 EACH TAB PO SCH (09:02)
[2022-04-04] MEDS: CHOLECALCIFEROL 25 MCG (1000 IU) TABLET PO SCH (09:02)
[2022-04-04] MEDS: THEOPHYLLINE 24 HOUR 300 MG CAP.ER.24H PO SCH ×2 (09:02→20:44)
[2022-04-04] MEDS: HYDROCORTISONE SUCCINATE 100 MG/2 ML VIAL IV SCH ×3 (09:02→23:29)
[2022-04-04] MEDS: ASPIRIN 81 MG PO SCH (09:02)
[2022-04-04] MEDS: NOREPINEPHRINE 4 MG in SODIUM CHLORIDE 0.9% 250 ML IV SCH (10:39)
--- NOTE | 2022-04-04 10:40 | P.PN ---
Subjective HISTORY OF PRESENTING ILLNESS Patient is a pleasant 71-year-old male with history of advanced COPD, non-small cell lung cancer diagnosed December 2021, anemia, pneumonia, previous ventilation and tracheostomy prior normal coronary arteries by heart catheterization in 2018 who presents with respiratory distress. Patient currently intubated and sedated and history is supplied by chart. Patient not been eating well for the last 2 days and had some sensation of feeling food stuck in his throat and has a chronic cough. Apparently there was only some chest pain with coughing. Patient presented and was in respiratory distress with worsening CO2 and therefore intubated. Patient briefly on norepinephrine however this has been weaned. Currently on FiO2 35% with a PEEP of 5. Cardiology was consulted for elevated troponins. Blood work shows hemoglobin 11.1 white blood cell 8.2 creatinine 0.87, troponin 0.083, 0.093, proBNP 1000 490. EKG shows sinus tachycardia, right axis deviation, nonspecific minimal ST depressions in the lateral leads. 04/03 Patient seen and examined. Patient on low-dose norepinephrine. Echocardiogram pending. D-dimer noted to be elevated at 4. Could be related to primary malignancy however possibility of pulmonary embolism in addition to chronic lung issues. 04/04 Patient seen and examined. Patient is off of norepinephrine and blood pressure is much improved mainly in the 130s 140s by cough and higher by the arterial line. He has been maintained on IV fluids at 75 mL/h and creatinine improved to normal. Increased BUN to creatinine ratio. He did undergo CTA yesterday which showed no PE however residual left-sided lung mass consistent with tumor as well as concern of right pneumonia. Has had good urine output. Still remains on ventilator with FiO2 35% and a PEEP of 5. Echocardiogram performed which shows EF 25-30%. REVIEW OF SYSTEMS At the time of my exam: Unable to obtain secondary to intubated and sedated. PHYSICAL EXAMINATION Vital signs reviewed. CONSTITUTIONAL: No apparent distress. HEENT: Head is normocephalic. Pupils are equal, round. Sclerae anicteric. Mucous membranes of the mouth are moist. No JVD. No carotid bruit. CHEST EXAMINATION: Lungs are clear to auscultation. No chest wall tenderness is noted on palpation or with deep breathing. HEART EXAMINATION: Regular rate and rhythm. S1, S2 heard. No murmurs, gallops or rub. ABDOMEN: Soft, nontender. Positive bowel sounds. EXTREMITIES: 2+ peripheral pulses, no lower extremity edema and no calf tenderness. NEUROLOGIC EXAMINATION: Patient is sedated and sedated on ventilator ASSESSMENT 1. non-STEMI, type II mechanism related to hypoxia 2. Acute on chronic respiratory failure related to COPD exacerbation 3. Hypotension briefly on norepinephrine likely related to sedation 4. Normal coronary arteries by heart catheterization 2018 5. Elevated proBNP 1500 appears euvolemic 6. Anemia 7. Acute kidney injury, likely related to hypotensive episodes and decreased intervascular volume 8. Elevated d-dimer, CTA negative for PE 9. Cardiomyopathy EF 25-30%, likely nonischemic with prior normal coronary arteries 10. Chronic systolic heart failure, does not appear volume overloaded PLAN Patient with cardiomyopathy however may be stress induced or related to recent chemotherapy or other. Not likely ischemic with prior normal heart catheterization 2018. Does not appear volume overloaded and improving on IV fl uids. Main presentation appears pulmonary related. We will add Toprol for heart failure regimen and monitor IV fluids closely. Further recommendations to follow. Objective - Vital Signs Vital signs: Vital Signs Temp 98.5 F 04/04/22 08:00 Pulse 91 04/04/22 10:30 Resp 20 04/04/22 10:30 BP 151/83 04/04/22 10:30 Pulse Ox 94 L 04/04/22 10:30 FiO2 35 04/04/22 07:09 Intake & Output 04/03/22 04/04/22 04/04/22 18:59 06:59 18:59 Intake Total 4077.745 6013.659 523.442 Output Total 585 1060 360 Balance 647.794 885.659 163.442 Weight 73.3 kg Intake: IV 776 1050 322 0.9 kvo 40 114 10 Sodium Chloride 0.9% 1, 700 900 300 000 ml @ 75 mls/hr IV . [id number] [facility] Rx#:[id number] pressure bag 36 36 12 Intake, IV Titration 336.794 165.659 71.442 Amount Norepinephrine 4 mg In 7.518 Sodium Chloride 0.9% 250 ml @ 0.05 MCG/KG/MIN 12. 961 mls/hr IV .[id number] [facility] Rx#:[id number] Piperacillin-Tazobactam 3 100 .375 gm In Sodium Chloride 0.9% 100 ml @ 25 mls/hr IVPB Q8HR [facility] Rx# :[id number] propofoL 1,000 mg In 229.276 165.659 71.442 Empty Bag 1 bag @ 5 MCG/ KG/MIN 2.041 mls/hr IV . Q24H [facility] Rx#:[id number] Tube Feeding 120 580 100 Other 150 30 Output: Urine 585 1060 360 Other: Voiding Method Indwelling Catheter Indwelling Catheter # Voids 1 ABP, PAP, CO, CI - Last Documented Arterial Blood Pressure 168/69 - Labs CBC & Chem 7: 04/04/22 04:05 04/04/22 04:05 Labs: Abnormal Lab Results - Last 24 Hours (Table) 04/03/22 04/03/22 04/03/22 Range/Units 13:20 15:04 19:10 RBC (4.30-5.90) m/uL Hgb (13.0-17.5) gm/dL Hct (39.0-53.0) % MCV (80.0-100.0) fL MCHC (31.0-37.0) g/dL RDW (11.5-15.5) % Plt Count (150-450) k/uL Neutrophils # (1.3-7.7) k/uL Lymphocytes # (1.0-4.8) k/uL Macrocytosis ABG pH (7.35-7.45) ABG pCO2 (35-45) mmHg ABG pO2 (83-108) mmHg ABG HCO3 (21-25) mmol/L ABG Total CO2 (19-24) mmol/L ABG O2 Saturation (94-97) % BUN (9-20) mg/dL Glucose (74-99) mg/dL POC Glucose (mg/dL) 228 H 226 H 152 H (70-110) mg/dL Total Bilirubin (0.2-1.3) mg/dL Alkaline Phosphatase (38-126) U/L Total Protein (6.3-8.2) g/dL Albumin (3.5-5.0) g/dL 04/03/22 04/04/22 04/04/22 Range/Units 23:45 03:24 04:05 RBC (4.30-5.90) m/uL Hgb (13.0-17.5) gm/dL Hct (39.0-53.0) % MCV (80.0-100.0) fL MCHC (31.0-37.0) g/dL RDW (11.5-15.5) % Plt Count (150-450) k/uL Neutrophils # (1.3-7.7) k/uL Lymphocytes # (1.0-4.8) k/uL Macrocytosis ABG pH (7.35-7.45) ABG pCO2 (35-45) mmHg ABG pO2 (83-108) mmHg ABG HCO3 (21-25) mmol/L ABG Total CO2 (19-24) mmol/L ABG O2 Saturation (94-97) % BUN 60 H (9-20) mg/dL Glucose 215 H (74-99) mg/dL POC Glucose (mg/dL) 207 H 231 H (70-110) mg/dL Total Bilirubin 0.1 L (0.2-1.3) mg/dL Alkaline Phosphatase 136 H (38-126) U/L Total Protein 5.1 L (6.3-8.2) g/dL Albumin 2.6 L (3.5-5.0) g/dL 04/04/22 04/04/22 04/04/22 Range/Units 04:05 05:40 06:55 RBC 3.18 L (4.30-5.90) m/uL Hgb 9.7 L (13.0-17.5) gm/dL Hct 32.7 L (39.0-53.0) % MCV 102.7 H (80.0-100.0) fL MCHC 29.5 L (31.0-37.0) g/dL RDW 21.0 H (11.5-15.5) % Plt Count 468 H (150-450) k/uL Neutrophils # 8.1 H (1.3-7.7) k/uL Lymphocytes # 0.3 L (1.0-4.8) k/uL Macrocytosis Marked A ABG pH 7.29 L (7.35-7.45) ABG pCO2 67 H (35-45) mmHg ABG pO2 69 L (83-108) mmHg ABG HCO3 32 H (21-25) mmol/L ABG Total CO2 34 H (19-24) mmol/L ABG O2 Saturation 92.7 L (94-97) % BUN (9-20) mg/dL Glucose (74-99) mg/dL POC Glucose (mg/dL) 199 H (70-110) mg/dL Total Bilirubin (0.2-1.3) mg/dL Alkaline Phosphatase (38-126) U/L Total Protein (6.3-8.2) g/dL Albumin (3.5-5.0) g/dL Microbiology - Last 24 Hours (Table) 04/01/22 11:54 Blood Culture - Preliminary Blood No Growth after 48 hours 04/01/22 10:09 Gram Stain - Final Sputum Sputum Culture - Final Serratia marcescens Haemophilus influenzae 04/01/22 03:48 Gram Stain - Final Sputum Sputum Culture - Final Serratia marcescens Haemophilus influenzae 04/01/22 09:09 Blood Culture - Preliminary Blood No Growth after 48 hours
--- NOTE | 2022-04-04 10:45 | P.PN ---
Subjective Progress Note Date: 04/04/22 Principal diagnosis: Acute on chronic hypoxic and hypercapnic respiratory failure secondary to COPD, bronchogenic carcinoma, and aspiration pneumonia This is a 71-year-old white male with chronic hypoxic and hypercapnic respiratory failure severe end-stage COPD, previous history of respiratory failure requiring intubation and mechanical ventilation history of non-small cell lung cancer diagnosed back in December of 2021. Patient presented to the hospital with 2 days history of increased shortness of breath, associated with cough, some wheezing, patient is normally maintained on oxygen and on prednisone as well as theophylline and many other bronchodilators. Has been very compliant with his medications. Admitted through the emergency room with acute on chronic hypoxic and hypercapnic respiratory failure patient was placed on relatively high FiO2 and BiPAP. Condition deteriorated and the patient went on to develop worsening hypercapnic respiratory failure requiring transfer to the ICU, intubation, mechanical ventilation, and I'm seeing him today on consultation. Patient is sedated, he is on propofol. His ventilator settings are assist control rate of 20, volume 450 FiO2 35% and PEEP of 5 ABG earlier on 70% showed a pO2 of 299 pCO2 of 62 pH of 7.32. Patient is on propofol at 50 mcg/kg/m, 0.9 normal saline at 1 25 mL per hour, norepinephrine at 0.4 mcg/kg/m. Patient did receive fluid boluses yesterday, today antibiotics were added and sputum cultures are pending. Patient will be placed empirically on Zosyn. Chest x-ray showed evidence of mass in the left pulmonary hilar area which is basically his original bronchogenic carcinoma minimal infiltrate in the left lower lobe and there is hyperinflation as well as coarse interstitial densities in both lower lobes. Nasogastric tube was noted to be in the proper position endotracheal tube in the proper position. Family is at bedside, updated the family on his condition, and we will likely give the patient a trial of weaning however the patient is known to have significant history of anxiety and I will try to use Precedex, pressure support mode of mechanical ventilation with a pressure support of 12 and CPAP after taking the patient off propofol if possible. Reevaluated today 04/02/22, patient remains in the ICU, intubated and mechanically ventilated. He is on assist control rate of 20 to volume 450 FiO2 35% and PEEP of 5. ABG showed a pO2 of 101 pCO2 of 55 pH of 7.32. Patient is on propofol at 30 mcg/kg/m he is also on 0.9 normal saline at 1 25 mL per hour. He is not requiring any pressors, no inotropes are needed. And no diuretics are needed. Patient was given a trial of weaning again today and he did not do well. As soon as the propofol placed on hold, patient became extremely short of breath, tachypnea, tachycardic, and he was having even rough time on assist control mode of mechanical ventilation. Hence did not even get a chance to place the patient on pressure support mode of mechanical ventilation. Hence placed back on assist control mode and discussed with the family the different options with the patient. He will likely require tracheostomy and PEG tube placement, unless the family decides on possible comfort care measures. In the meantime we will try to continue daily assessment for weaning, but I have a strong feeling that the patient will not wean easily and may require again tracheostomy and PEG tube placement. Family would like to discuss this among themselves, and they will let me know whether they are agreeable to proceed with comfort care measures down the line. Patient again has severe end-stage COPD and he has bronchogenic carcinoma. Reevaluated today on 04/03/22, patient remains in the ICU intubated and mechanically ventilated. He is now on assist control rate of 20 to volume 450 FiO2 35% and PEEP of 5. Peak airway pressure is 35. His ABG showed a pO2 of 106 pCO2 56 pH of 7.34. Patient remains on 35% FiO2. Patient is off nor epinephrine he remains on normal saline at 50 mL an hour and on propofol at 50 mcg/kg/m. Patient is receiving vital Hp at 50 mL/h the goal is 50. On physical examination continues to have rhonchi and wheezes bilaterally chest x-rays showing slight improvement in his bilateral infiltrates. Left hilar mass remains the same. Hence I have no plans to wean the patient today, and the family has made a decision that the patient does not wean in the next few days, they would like him to proceed with tracheostomy and PEG tube placement and eventual placement. We will decide this early next week in the meantime patient is not related to believe that extubated. CBC is relatively unremarkable WBC 7.3 hemoglobin is 8.8, basic metabolic profile is relatively normal, BUN is 67 creatinine is 1.36 hence we will increase his IV fluid to 75 mL Reevaluated today on 04/04/22, patient remains in the ICU, intubated and mechanically ventilated. Not much of a international exchange coordinator the last 24 hours, patient remains on assist control rate of 20 to volume 450 FiO2 35% and PEEP of 5. ABG showed a pO2 of 69 pCO2 of 67 pH of 7.29. Hence we'll increase his rate to 24. Patient remains on propofol at 50 mcg/kg/m, IV fluid 0.9 normal saline at 75 mL per hour. He is receiving vital HP at 50 mL per hour/cor. His sputum is coming back positive for Serratia and Haemophilus influenza both are covered with Zosyn. Patient has been on Zosyn all along. Patient is sedated however I will try to awaken the patient today, and assess mental status. On physical examination he continues to have tightness and wheezing and I don't believe the patient is ready to have any weaning trials again. Today I even discussed the situation all over with the family about possible tracheostomy PEG tube placement PICC line placement and eventual placement and a ventilator facility. I also discussed the option of comfort care measures. Family seems to be inclined to proceed with tracheostomy and PEG tube placement as well as PICC line placement and eventual transfer to a ventilator facility/selective care specialty. Prognosis is obviously very poor, and the family is very well aware that the patient has poor prognosis with severe end-stage COPD and bronchogenic carcinoma. WBC count is 8.8 hemoglobin is 9.7, basic metabolic profile is normal BUN is 60 creatinine 0.68. For some reason a CT angio the chest was ordered yesterday, no evidence of pulmonary embolism clinically I never thought that the patient had pulmonary embolism and the clinical presentation is not a presentation of pulmonary embolism. Objective - Vital Signs Vital signs: Vital Signs Temp 98.5 F 04/04/22 08:00 Pulse 91 04/04/22 10:30 Resp 20 04/04/22 10:30 BP 151/83 04/04/22 10:30 Pulse Ox 94 L 04/04/22 10:30 FiO2 35 04/04/22 07:09 Intake & Output 04/03/22 04/04/22 04/04/22 18:59 06:59 18:59 Intake Total 4947.083 4366.659 523.442 Output Total 585 1060 360 Balance 647.794 885.659 163.442 Weight 73.3 kg Intake: IV 776 1050 322 0.9 kvo 40 114 10 Sodium Chloride 0.9% 1, 700 900 300 000 ml @ 75 mls/hr IV . [id number] [facility] Rx#:[id number] pressure bag 36 36 12 Intake, IV Titration 336.794 165.659 71.442 Amount Norepinephrine 4 mg In 7.518 Sodium Chloride 0.9% 250 ml @ 0.05 MCG/KG/MIN 12. 961 mls/hr IV .[id number] [facility] Rx#:[id number] Piperacillin-Tazobactam 3 100 .375 gm In Sodium Chloride 0.9% 100 ml @ 25 mls/hr IVPB Q8HR [facility] Rx# :[id number] propofoL 1,000 mg In 229.276 165.659 71.442 Empty Bag 1 bag @ 5 MCG/ KG/MIN 2.041 mls/hr IV . Q24H [facility] Rx#:[id number] Tube Feeding 120 580 100 Other 150 30 Output: Urine 585 1060 360 Other: Voiding Method Indwelling Catheter Indwelling Catheter # Voids 1 ABP, PAP, CO, CI - Last Documented Arterial Blood Pressure 168/69 - Exam GENERAL: Reveals a 71-year-old white male on mechanical ventilation, sedated, on propofol HEENT: PERRLA, EOMI, anicteric, no neck masses, no JVD, endotracheal tube and orogastric tube are intact, moist mucous membranes noted. CARDIOVASCULAR: Distant S1 and S2 no S3 gallop. No murmur. PULMONARY: Symmetrical chest expansion, continues to have diminished breath sounds and wheezing bilaterally ABDOMEN: Soft nontender no megaly no rebound no guarding, positive bowel sounds. MUSCULOSKELETAL: No deformities and no limitation in range of motion EXTREMITIES: Mild clubbing, no edema, no cyanosis NEUROLOGICAL: Cannot fully assess/sedated on propofol SKIN: No rashes. Psychiatric: Cannot assess - Labs CBC & Chem 7: 04/04/22 04:05 04/04/22 04:05 Labs: Abnormal Lab Results - Last 24 Hours (Table) 04/03/22 04/03/22 04/03/22 Range/Units 13:20 15:04 19:10 RBC (4.30-5.90) m/uL Hgb (13.0-17.5) gm/dL Hct (39.0-53.0) % MCV (80.0-100.0) fL MCHC (31.0-37.0) g/dL RDW (11.5-15.5) % Plt Count (150-450) k/uL Neutrophils # (1.3-7.7) k/uL Lymphocytes # (1.0-4.8) k/uL Macrocytosis ABG pH (7.35-7.45) ABG pCO2 (35-45) mmHg ABG pO2 (83-108) mmHg ABG HCO3 (21-25) mmol/L ABG Total CO2 (19-24) mmol/L ABG O2 Saturation (94-97) % BUN (9-20) mg/dL Glucose (74-99) mg/dL POC Glucose (mg/dL) 228 H 226 H 152 H (70-110) mg/dL Total Bilirubin (0.2-1.3) mg/dL Alkaline Phosphatase (38-126) U/L Total Protein (6.3-8.2) g/dL Albumin (3.5-5.0) g/dL 04/03/22 04/04/22 04/04/22 Range/Units 23:45 03:24 04:05 RBC (4.30-5.90) m/uL Hgb (13.0-17.5) gm/dL Hct (39.0-53.0) % MCV (80.0-100.0) fL MCHC (31.0-37.0) g/dL RDW (11.5-15.5) % Plt Count (150-450) k/uL Neutrophils # (1.3-7.7) k/uL Lymphocytes # (1.0-4.8) k/uL Macrocytosis ABG pH (7.35-7.45) ABG pCO2 (35-45) mmHg ABG pO2 (83-108) mmHg ABG HCO3 (21-25) mmol/L ABG Total CO2 (19-24) mmol/L ABG O2 Saturation (94-97) % BUN 60 H (9-20) mg/dL Glucose 215 H (74-99) mg/dL POC Glucose (mg/dL) 207 H 231 H (70-110) mg/dL Total Bilirubin 0.1 L (0.2-1.3) mg/dL Alkaline Phosphatase 136 H (38-126) U/L Total Protein 5.1 L (6.3-8.2) g/dL Albumin 2.6 L (3.5-5.0) g/dL 04/04/22 04/04/22 04/04/22 Range/Units 04:05 05:40 06:55 RBC 3.18 L (4.30-5.90) m/uL Hgb 9.7 L (13.0-17.5) gm/dL Hct 32.7 L (39.0-53.0) % MCV 102.7 H (80.0-100.0) fL MCHC 29.5 L (31.0-37.0) g/dL RDW 21.0 H (11.5-15.5) % Plt Count 468 H (150-450) k/uL Neutrophils # 8.1 H (1.3-7.7) k/uL Lymphocytes # 0.3 L (1.0-4.8) k/uL Macrocytosis Marked A ABG pH 7.29 L (7.35-7.45) ABG pCO2 67 H (35-45) mmHg ABG pO2 69 L (83-108) mmHg ABG HCO3 32 H (21-25) mmol/L ABG Total CO2 34 H (19-24) mmol/L ABG O2 Saturation 92.7 L (94-97) % BUN (9-20) mg/dL Glucose (74-99) mg/dL POC Glucose (mg/dL) 199 H (70-110) mg/dL Total Bilirubin (0.2-1.3) mg/dL Alkaline Phosphatase (38-126) U/L Total Protein (6.3-8.2) g/dL Albumin (3.5-5.0) g/dL Microbiology - Last 24 Hours (Table) 04/01/22 11:54 Blood Culture - Preliminary Blood No Growth after 48 hours 04/01/22 10:09 Gram Stain - Final Sputum Sputum Culture - Final Serratia marcescens Haemophilus influenzae 04/01/22 03:48 Gram Stain - Final Sputum Sputum Culture - Final Serratia marcescens Haemophilus influenzae 04/01/22 09:09 Blood Culture - Preliminary Blood No Growth after 48 hours Assessment and Plan Assessment: Impression: Acute on chronic hypoxic and hypercapnic respiratory failure Bilateral pneumonia secondary to Serratia marcescens and Haemophilus influenza, patient remains on Zosyn Acute exacerbation of COPD History of squamous cell lung cancer diagnosed on 01/01/2022. Previous history of respiratory failure requiring intubation and mechanical ventilation tracheostomy and PEG tube placement, this was over 4 years ago. Generalized anxiety disorder. Severe COPD, FEV1 less than 35%. Degenerative joint disease Acute kidney injury, suspect hypovolemia, increase his IV fluid up to 75 mL/h Recommendation: Continue ventilatory support, no plans to wean him, patient is basically on weaning of all, and he would be almost impossible to wean successfully considering his multiple pulmonary issues, that is pneumonia, COPD, and bronchogenic carcinoma. Continue bronchodilators Continue Zosyn. Continue Solu-Medrol. Continue GI and DVT prophylaxis Continue Nutritional support/enteral feeding Sedation interruption today and assessment of mental status, however patient is not ready for weaning, previous attempts have failed Continue IV fluids, saline at 75 mL per hour Family updated again on his condition and at this point they are not going for comfort care measures they would like to proceed with tracheostomy PEG tube placement and PICC line placement and potential transfer to a ventilator facility Prognosis again is extremely poor Critical care time is over 30 minutes Time with Patient: Greater than 30
[2022-04-04 12:19] LABS: Glucose,Whole Blood 180 mg/dL (70-110)
[2022-04-04] MEDS: METOPROLOL SUCCINATE (ER) 25 MG TAB.ER.24H PO SCH (12:47)
[2022-04-04 15:32] LABS: Glucose,Whole Blood 190 mg/dL (70-110)
--- NOTE | 2022-04-04 15:32 | P.PN ---
Subjective Progress Note Date: 04/04/22 Principal diagnosis: Possible sepsis with hypotension vs secondary to hypovolemia Acute on chronic hypoxic and hypercapnic respiratory failure Suspect aspiration pneumonia Acute exacerbation of COPD History of squamous cell lung cancer diagnosed on 01/01/2022 71 years old male with past medical history of COPD, Hearing Disorder / Deafness, Hyperlipidemia, Osteoarthritis, lung cancer diagnosed on 11/2021. Patient presents because of dyspnea. Patient currently is been intubated in the ICU and information were obtained from staff, records and family at bedside both and daughter. As per family patient has been having difficulty breathing all the time and yesterday evening around 10 PM started getting worse so he decided to come to emergency room. Patient has not been eating well for the last 2 days he was feeling food stuck in his throat. patient has chronic cough and creamy phlegm. He had chest pain only with coughing. Yesterday was getting into the bathroom when he felt so weak and he had to light on the floor on his knees. Also patient has been complaining of from diarrhea over the last 2 days with 3-4 puffs per day. No vomiting. History of getting chemo and radiotherapy last dose was less than a week ago for his left lung cancer. They think his oncologist is Dr. arauz and radiation oncologist is Dr. Patricia. His occupational therapy assist is Dr. Short, and he is on 2 L oxygen via nasal cannula He came through the emergency room and the floor he got worse and acidotic, eventually he was intubated at to the ICU. He got one bolus of normal saline 1000 mL. Distal have low urine output. 04/03/2022 Patient is seen and evaluated in room at bedside; remains in the ICU intubated and mechanically ventilated. His ABG showed a pO2 of 106 pCO2 56 pH of 7.34. Patient remains on 35% FiO2. Patient is off norepinephrine he remains on normal saline at 50 mL an hour and on propofol at 50 mcg/kg/m. Chest x-rays showing slight improvement in his bilateral infiltrates. Left hilar mass remains the same. Hence I have no plans to wean the patient today, and the family has made a decision that the patient does not wean in the next few days, they would like him to proceed with tracheostomy and PEG tube placement and eventual placement. We will decide this early next week in the meantime patient is not related to believe that extubated. CBC is relatively unremarkable WBC 7.3 hemoglobin is 8.8, basic metabolic profile is relatively normal, BUN is 67 creatinine is 1.36 IV fluids increased per manager fast food recommendations No plans for extubation; continue with ventilator support, continue bronchodilator therapy; patient remains on IV Zosyn and Solu-Medrol 04/04/2022 Patient seen and evaluated, remains in the ICU, intubated and mechanically ventilated. ABG showed a pO2 of 69 pCO2 of 67 pH of 7.29. Patient remains on propofol at 50 mcg/kg/m, IV fluid 0.9 normal saline at 75 mL per hour Sputum is coming back positive for Serratia and Haemophilus influenza both are covered with Zosyn. Carpenter Packing discussed prognosis and plan of care with the family about possible tracheostomy PEG tube placement PICC line placement and eventual placement and a ventilator facility; option of comfort care measures was discussed. Family seems to be inclined to proceed with tracheostomy and PEG tube placement as well as PICC line placement and eventual transfer to a ventilator facility/selective care specialty. WBC count is 8.8 hemoglobin is 9.7, basic metabolic profile is normal BUN is [address] angio the chest was ordered yesterday, no evidence of pulmonary embolism clinically I never thought that the patient had pulmonary embolism and the clinical presentation is not a presentation of pulmonary embolism. Objective - Vital Signs Vital signs: Vital Signs Temp 97.5 F L 04/04/22 04:00 Pulse 90 04/04/22 07:54 Resp 20 04/04/22 07:00 BP 125/78 04/04/22 07:00 Pulse Ox 91 L 04/04/22 07:00 FiO2 35 04/04/22 07:09 Intake & Output 04/03/22 04/04/22 04/04/22 18:59 06:59 18:59 Intake Total 2090.733 4068.659 473.442 Output Total 585 1060 360 Balance 647.794 885.659 113.442 Weight 73.3 kg Intake: IV 776 1050 322 0.9 kvo 40 114 10 Sodium Chloride 0.9% 1, 700 900 300 000 ml @ 75 mls/hr IV . [id number] [facility] Rx#:[id number] pressure bag 36 36 12 Intake, IV Titration 336.794 165.659 71.442 Amount Norepinephrine 4 mg In 7.518 Sodium Chloride 0.9% 250 ml @ 0.05 MCG/KG/MIN 12. 961 mls/hr IV .[id number] [facility] Rx#:[id number] Piperacillin-Tazobactam 3 100 .375 gm In Sodium Chloride 0.9% 100 ml @ 25 mls/hr IVPB Q8HR [facility] Rx# :[id number] propofoL 1,000 mg In 229.276 165.659 71.442 Empty Bag 1 bag @ 5 MCG/ KG/MIN 2.041 mls/hr IV . Q24H [facility] Rx#:[id number] Tube Feeding 120 580 50 Other 150 30 Output: Urine 585 1060 360 Other: Voiding Method Indwelling Catheter Indwelling Catheter # Voids 1 ABP, PAP, CO, CI - Last Documented Arterial Blood Pressure 139/62 - Exam -GENERAL: The patient is alert intubated and sedated HEENT: Pupils are round and equally reacting to light. EOMI. No scleral icterus. No conjunctival pallor. Normocephalic, atraumatic. No pharyngeal erythema. No thyromegaly. CARDIOVASCULAR: S1 and S2 present. No murmurs, rubs, or gallops. PULMONARY: Chest is clear to auscultation, no wheezing or crackles. Decreased air entry bilaterally ABDOMEN: Soft, nontender, nondistended, normoactive bowel sounds. No palpable organomegaly. MUSCULOSKELETAL: No joint swelling or deformity. EXTREMITIES: No cyanosis, clubbing, or pedal edema. NEUROLOGICAL: Gross neurological examination did not reveal any focal deficits. SKIN: No rashes. no petechiae. - Labs CBC & Chem 7: 04/04/22 04:05 04/04/22 04:05 Labs: Abnormal Lab Results - Last 24 Hours (Table) 04/03/22 04/03/22 04/03/22 Range/Units 13:20 15:04 19:10 RBC (4.30-5.90) m/uL Hgb (13.0-17.5) gm/dL Hct (39.0-53.0) % MCV (80.0-100.0) fL MCHC (31.0-37.0) g/dL RDW (11.5-15.5) % Plt Count (150-450) k/uL Neutrophils # (1.3-7.7) k/uL Lymphocytes # (1.0-4.8) k/uL Macrocytosis ABG pH (7.35-7.45) ABG pCO2 (35-45) mmHg ABG pO2 (83-108) mmHg ABG HCO3 (21-25) mmol/L ABG Total CO2 (19-24) mmol/L ABG O2 Saturation (94-97) % BUN (9-20) mg/dL Glucose (74-99) mg/dL POC Glucose (mg/dL) 228 H 226 H 152 H (70-110) mg/dL Total Bilirubin (0.2-1.3) mg/dL Alkaline Phosphatase (38-126) U/L Total Protein (6.3-8.2) g/dL Albumin (3.5-5.0) g/dL 04/03/22 04/04/22 04/04/22 Range/Units 23:45 03:24 04:05 RBC (4.30-5.90) m/uL Hgb (13.0-17.5) gm/dL Hct (39.0-53.0) % MCV (80.0-100.0) fL MCHC (31.0-37.0) g/dL RDW (11.5-15.5) % Plt Count (150-450) k/uL Neutrophils # (1.3-7.7) k/uL Lymphocytes # (1.0-4.8) k/uL Macrocytosis ABG pH (7.35-7.45) ABG pCO2 (35-45) mmHg ABG pO2 (83-108) mmHg ABG HCO3 (21-25) mmol/L ABG Total CO2 (19-24) mmol/L ABG O2 Saturation (94-97) % BUN 60 H (9-20) mg/dL Glucose 215 H (74-99) mg/dL POC Glucose (mg/dL) 207 H 231 H (70-110) mg/dL Total Bilirubin 0.1 L (0.2-1.3) mg/dL Alkaline Phosphatase 136 H (38-126) U/L Total Protein 5.1 L (6.3-8.2) g/dL Albumin 2.6 L (3.5-5.0) g/dL 04/04/22 04/04/2222 Range/Units 04:05 05:40 06:55 RBC 3.18 L (4.30-5.90) m/uL Hgb 9.7 L (13.0-17.5) gm/dL Hct 32.7 L (39.0-53.0) % MCV 102.7 H (80.0-100.0) fL MCHC 29.5 L (31.0-37.0) g/dL RDW 21.0 H (11.5-15.5) % Plt Count 468 H (150-450) k/uL Neutrophils # 8.1 H (1.3-7.7) k/uL Lymphocytes # 0.3 L (1.0-4.8) k/uL Macrocytosis Marked A ABG pH 7.29 L (7.35-7.45) ABG pCO2 67 H (35-45) mmHg ABG pO2 69 L (83-108) mmHg ABG HCO3 32 H (21-25) mmol/L ABG Total CO2 34 H (19-24) mmol/L ABG O2 Saturation 92.7 L (94-97) % BUN (9-20) mg/dL Glucose (74-99) mg/dL POC Glucose (mg/dL) 199 H (70-110) mg/dL Total Bilirubin (0.2-1.3) mg/dL Alkaline Phosphatase (38-126) U/L Total Protein (6.3-8.2) g/dL Albumin (3.5-5.0) g/dL Microbiology - Last 24 Hours (Table) 04/01/22 11:54 Blood Culture - Preliminary Blood No Growth after 48 hours 04/01/22 10:09 Gram Stain - Final Sputum Sputum Culture - Final Serratia marcescens Haemophilus influenzae 04/01/22 03:48 Gram Stain - Final Sputum Sputum Culture - Final Serratia marcescens Haemophilus influenzae 04/01/22 09:09 Blood Culture - Preliminary Blood No Growth after 48 hours Assessment and Plan Assessment: Acute COPD exacerbation Left hilar mass consistent with his history of lung cancer since 11/2021 Acute hypoxic hypercapnic respiratory failure chronic hypoxic respiratory failure Left Lung cancer, undergoing chemoradiotherapy Hearing difficulty Hyperlipidemia Osteoarthritis Elevated troponin, rule out cardiac causes Plan: Continue with intubation and mechanical ventilation pulmonary/critical care unit Continue with steroids and bronchodilators. He was started on Solu-Medrol 60 mg every 6 hours Pulmonary consult Patient will need swallow evaluation when he is extubated Cardiology consult. Continue with normal saline infusion. Bronchodilator. Check pro-calcitonin Give one bolus of normal saline and monitor input and output Labs and medication were reviewed.. Continue same treatment. Continue with symptomatic treatment. Resume home medication. Monitor lytes and vitals. DVT and GI prophylaxis. Further recommendations as per clinical course of the patient DVT prophylaxis: Subcutaneous heparin GI Prophylaxis: Ppi Prognosis is guarded
--- NOTE | 2022-04-04 19:05 | XR ---
EXAMINATION TYPE: XR chest 1V portable DATE OF EXAM: 04/04/2022 COMPARISON: Today HISTORY: Respiratory failure TECHNIQUE: Single view FINDINGS: The endotracheal tube is 3 cm from the artemio. There is emphysema. There is coarse intersti tial density at the lung bases. No heart failure. There is nasogastric tube that is poorly visualized and the tip is probably in the distal esophagus close to the gastroesophageal junction. There is fla ttening of the diaphragm IMPRESSION: NG tube is probably in the distal esophagus. Emphysema. Pulmonary interstitial fibrosis. Interstitial infiltrates in the lower lung lindsay without change.
[2022-04-04 19:15] LABS: Glucose,Whole Blood 158 mg/dL (70-110)
--- NOTE | 2022-04-04 20:19 | XR ---
EXAMINATION TYPE: XR chest 1V portable DATE OF EXAM: 04/04/2022 COMPARISON: Today HISTORY: Tube placement TECHNIQUE: Single view FINDINGS: The endotracheal tube is 4.5 cm from the artemio. There is coarse interstitial density in th e lungs. There is pulmonary emphysema. There is nasogastric tube and the tip is over the gastric fund us in good position. No pleural effusion. IMPRESSION: NG tube is in the stomach. COPD and pulmonary fibrosis. Interstitial pulmonary infiltrate s. No change.
[2022-04-04] MEDS: CALCIUM CARBONATE 500 MG CHEWABLE PO SCH (20:42)
[2022-04-04] MEDS: ATORVASTATIN 10 MG TAB PO SCH (20:42)
[2022-04-04] MEDS: LATANOPROST 0.005% OPHTH DROPS 2.5 ML BTL BOTH EYES SCH (20:43)
[2022-04-04] MEDS: MONTELUKAST 10 MG TAB PO SCH (20:43)
[2022-04-04 23:28] LABS: Glucose,Whole Blood 114 mg/dL (70-110)
[2022-04-05 03:59] LABS: Glucose,Whole Blood 202 mg/dL (70-110)
[2022-04-05] MEDS: INSULIN ASPART (NovoLOG) 100 UNIT/ML VIAL SQ SCH ×5 (04:00→21:46)
[2022-04-05 04:44] LABS: Anisocytosis Moderate; Basophils # (A) 0.1 k/uL (0-0.2); Basophils % (A) 1 %; Eosinophils % (A) 0 %; HCT 33.3 % (39.0-53.0); HGB 9.9 gm/dL (13.0-17.5); Hypochromasia Marked; Lymphocytes # (A) 0.3 k/uL (1.0-4.8); Lymphocytes % (A) 2 %; MCH 30.9 pg (25.0-35.0); MCHC 29.6 g/dL (31.0-37.0); MCV 104.4 fL (80.0-100.0); Macrocytosis Marked; Monocytes # (A) 0.2 k/uL (0-1.0); Monocytes % (A) 2 %; Neutrophils # (A) 11.1 k/uL (1.3-7.7); Neutrophils % (A) 94 %; Platelet Count 439 k/uL (150-450); RBC 3.19 m/uL (4.30-5.90); RDW 21.1 % (11.5-15.5); WBC 11.8 k/uL (3.8-10.6)
[2022-04-05 04:49] LABS: ALT 40 U/L (4-49); AST 25 U/L (17-59); African American GFR (CKD) >90 (>60 ml/min/1.73 sqM); Albumin 2.5 g/dL (3.5-5.0); Alkaline Phosphatase 137 U/L (38-126); Anion Gap 6 mmol/L; Blood Urea Nitrogen 52 mg/dL (9-20); Calcium 8.9 mg/dL (8.4-10.2); Carbon Dioxide 32 mmol/L (22-30); Chloride 108 mmol/L (98-107); Glucose 235 mg/dL (74-99); Non-African American GFR(CKD) >90 (>60 ml/min/1.73 sqM); Potassium 4.9 mmol/L (3.5-5.1); Sodium 146 mmol/L (137-145); Total Bilirubin <0.1 mg/dL (0.2-1.3); Total Protein 5.2 g/dL (6.3-8.2)
[2022-04-05 05:47] LABS: ABG Base Excess 6.2 mmol/L; ABG HCO3 33 mmol/L (21-25); ABG Oxygen Saturation 93.1 % (94-97); ABG PCO2 69 mmHg (35-45); ABG PH 7.28 (7.35-7.45); ABG PO2 69 mmHg (83-108); ABG TCO2 35 mmol/L (19-24); Allen Test Performed? Yes
[2022-04-05] MEDS: SODIUM CHLORIDE 0.9% 1,000 ML IV SCH ×2 (06:15→21:38)
[2022-04-05] MEDS: NOREPINEPHRINE 4 MG in SODIUM CHLORIDE 0.9% 250 ML IV SCH (06:15)
[2022-04-05 06:21] LABS: Glucose,Whole Blood 220 mg/dL (70-110)
--- NOTE | 2022-04-05 06:58 | P.PN ---
Subjective Progress Note Date: 04/05/22 Principal diagnosis: Severe cardiomyopathy, nonischemic This is a 71-year-old gentleman with a past medical history significant for advanced COPD and chronic hypoxic respiratory failure as well as non-small cell lung cancer as well as multiple comorbid conditions was admitted to the hospital with acute hypoxic respiratory failure requiring intubation and mechanical ventilation. We involved in the care of the patient because of abnormal cardiac enzymes. The patient is known to have normal coronary angiogram based on heart catheterization in 2019. He underwent further investigation including an echocardiogram which revealed severe cardiomyopathy with EF around 30% we felt to be nonischemic could be stress-induced cardiomyopathy or chemotherapy related cardiomyopathy giving that the patient heart catheterization was present in 2019 did not show any evidence of obstructive coronary artery disease. The patient was seen this morning. He continues to be intubated on mechanical ventilation. He is off vasopressors for almost 24 hours. He is on aspirin as well as statin as well as beta reyna. The GFR is within normal limits. I'm going to a small dose of lisinopril to the current medical regimen to maximize his treatment for cardiomyopathy. Otherwise we'll continue the conservative medical approach and medical treatment only for the evidence of myocardial injury with elevated troponin which is likely related to type II myocardial infarction or could be related to cardiomyopathy or could be due to hypoxemia and very unlikely related to obstructive CAD. Objective - Vital Signs Vital signs: Vital Signs Temp 97.5 F L 04/05/22 04:00 Pulse 87 04/05/22 06:00 Resp 21 04/05/22 06:00 BP 134/81 04/05/22 06:00 Pulse Ox 98 04/05/22 06:00 FiO2 35 04/05/22 04:00 Intake & Output 04/04/22 04/04/22 04/05/22 06:59 18:59 06:59 Intake Total 9373.639 0198.130 1687.668 Output Total 1060 1535 710 Balance 885.659 -14.870 977.668 Weight 73.3 kg 75 kg Intake: IV 1050 1024 936 0.9 kvo 114 10 Sodium Chloride 0.9% 1, 900 975 900 000 ml @ 75 mls/hr IV . [id number] [facility] Rx#:[id number] pressure bag 36 39 36 Intake, IV Titration 165.659 326.130 111.668 Amount Piperacillin-Tazobactam 3 100 .375 gm In Sodium Chloride 0.9% 100 ml @ 25 mls/hr IVPB Q8HR [facility] Rx# :[id number] propofoL 1,000 mg In 165.659 226.130 111.668 Empty Bag 1 bag @ 5 MCG/ KG/MIN 2.041 mls/hr IV . Q24H [facility] Rx#:[id number] Tube Feeding 580 140 580 Other 150 30 60 Output: Urine 1060 1535 710 Other: Voiding Method Indwelling Catheter Indwelling Catheter Indwelling Catheter # Voids 1 # Bowel Movements 1 ABP, PAP, CO, CI - Last Documented Arterial Blood Pressure 114/58 - Constitutional General appearance: Present: no acute distress - Respiratory Respiratory: bilateral: wheezing - Cardiovascular Rhythm: regular Heart sounds: normal: S1, S2 - Labs CBC & Chem 7: 04/05/22 04:20 04/05/22 04:20 Labs: Abnormal Lab Results - Last 24 Hours (Table) 04/04/22 04/04/22 04/04/22 Range/Units 06:55 12:17 15:30 WBC (3.8-10.6) k/uL RBC (4.30-5.90) m/uL Hgb (13.0-17.5) gm/dL Hct (39.0-53.0) % MCV (80.0-100.0) fL MCHC (31.0-37.0) g/dL RDW (11.5-15.5) % Neutrophils # (1.3-7.7) k/uL Lymphocytes # (1.0-4.8) k/uL Macrocytosis ABG pH (7.35-7.45) ABG pCO2 (35-45) mmHg ABG pO2 (83-108) mmHg ABG HCO3 (21-25) mmol/L ABG Total CO2 (19-24) mmol/L ABG O2 Saturation (94-97) % Sodium (137-145) mmol/L Chloride (98-107) mmol/L Carbon Dioxide (22-30) mmol/L BUN (9-20) mg/dL Creatinine (0.66-1.25) mg/dL Glucose (74-99) mg/dL POC Glucose (mg/dL) 199 H 180 H 190 H (70-110) mg/dL Total Bilirubin (0.2-1.3) mg/dL Alkaline Phosphatase (38-126) U/L Total Protein (6.3-8.2) g/dL Albumin (3.5-5.0) g/dL 04/04/22 04/04/22 04/05/22 Range/Units 19:03 23:26 03:57 WBC (3.8-10.6) k/uL RBC (4.30-5.90) m/uL Hgb (13.0-17.5) gm/dL Hct (39.0-53.0) % MCV (80.0-100.0) fL MCHC (31.0-37.0) g/dL RDW (11.5-15.5) % Neutrophils # (1.3-7.7) k/uL Lymphocytes # (1.0-4.8) k/uL Macrocytosis ABG pH (7.35-7.45) ABG pCO2 (35-45) mmHg ABG pO2 (83-108) mmHg ABG HCO3 (21-25) mmol/L ABG Total CO2 (19-24) mmol/L ABG O2 Saturation (94-97) % Sodium (137-145) mmol/L Chloride (98-107) mmol/L Carbon Dioxide (22-30) mmol/L BUN (9-20) mg/dL Creatinine (0.66-1.25) mg/dL Glucose (74-99) mg/dL POC Glucose (mg/dL) 158 H 114 H 202 H (70-110) mg/dL Total Bilirubin (0.2-1.3) mg/dL Alkaline Phosphatase (38-126) U/L Total Protein (6.3-8.2) g/dL Albumin (3.5-5.0) g/dL 04/05/22 04/05/22 04/05/22 Range/Units 04:20 04:20 05:45 WBC 11.8 H (3.8-10.6) k/uL RBC 3.19 L (4.30-5.90) m/uL Hgb 9.9 L (13.0-17.5) gm/dL Hct 33.3 L (39.0-53.0) % MCV 104.4 H (80.0-100.0) fL MCHC 29.6 L (31.0-37.0) g/dL RDW 21.1 H (11.5-15.5) % Neutrophils # 11.1 H (1.3-7.7) k/uL Lymphocytes # 0.3 L (1.0-4.8) k/uL Macrocytosis Marked A ABG pH 7.28 L (7.35-7.45) ABG pCO2 69 H (35-45) mmHg ABG pO2 69 L (83-108) mmHg ABG HCO3 33 H (21-25) mmol/L ABG Total CO2 35 H (19-24) mmol/L ABG O2 Saturation 93.1 L (94-97) % Sodium 146 H (137-145) mmol/L Chloride 108 H (98-107) mmol/L Carbon Dioxide 32 H (22-30) mmol/L BUN 52 H (9-20) mg/dL Creatinine 0.64 L (0.66-1.25) mg/dL Glucose 235 H (74-99) mg/dL POC Glucose (mg/dL) (70-110) mg/dL Total Bilirubin <0.1 L (0.2-1.3) mg/dL Alkaline Phosphatase 137 H (38-126) U/L Total Protein 5.2 L (6.3-8.2) g/dL Albumin 2.5 L (3.5-5.0) g/dL 04/05/ Range/Units 06:19 WBC (3.8-10.6) k/uL RBC (4.30-5.90) m/uL Hgb (13.0-17.5) gm/dL Hct (39.0-53.0) % MCV (80.0-100.0) fL MCHC (31.0-37.0) g/dL RDW (11.5-15.5) % Neutrophils # (1.3-7.7) k/uL Lymphocytes # (1.0-4.8) k/uL Macrocytosis ABG pH (7.35-7.45) ABG pCO2 (35-45) mmHg ABG pO2 (83-108) mmHg ABG HCO3 (21-25) mmol/L ABG Total CO2 (19-24) mmol/L ABG O2 Saturation (94-97) % Sodium (137-145) mmol/L Chloride (98-107) mmol/L Carbon Dioxide (22-30) mmol/L BUN (9-20) mg/dL Creatinine (0.66-1.25) mg/dL Glucose (74-99) mg/dL POC Glucose (mg/dL) 220 H (70-110) mg/dL Total Bilirubin (0.2-1.3) mg/dL Alkaline Phosphatase (38-126) U/L Total Protein (6.3-8.2) g/dL Albumin (3.5-5.0) g/dL Microbiology - Last 24 Hours (Table) 04/01/22 11:54 Blood Culture - Preliminary Blood No Growth after 72 hours 04/01/22 09:09 Blood Culture - Preliminary Blood No Growth after 72 hours Assessment and Plan Assessment: Assessment #1 acute on chronic hypoxic respiratory failure #2 evidence of myocardial injury was no evidence of ischemia #3 severe cardiomyopathy, nonischemic #4 multiple comorbid conditions Plan #1 continue the current medical regimen including aspirin and statin and beta reyna #2 add small dose of TRISTA inhibitor to her current medical regimen #3 no need for any further cardiac invasive investigation #4 follow-up with the patient
[2022-04-05] MEDS: IPRATROPIUM-ALBUTEROL 3 ML NEB INHALATION SCH ×4 (07:12→19:17)
[2022-04-05] MEDS: FORMOTEROL FUMARATE 20 MCG/2 ML NEBU INHALATION SCH ×2 (07:12→19:17)
[2022-04-05] MEDS: BUDESONIDE 1 MG/2 ML NEBU INHALATION SCH ×2 (07:12→19:17)
--- NOTE | 2022-04-05 07:41 | XR ---
EXAMINATION TYPE: XR chest 1V portable DATE OF EXAM: 04/05/2022 6:11 AM COMPARISON: Chest radiograph from one day prior. CT 04/03/2022. TECHNIQUE: XR chest 1V portable Portable AP radiograph of the chest. CLINICAL INDICATION:Male, 71 years old with history of Tube placement; FINDINGS: Lungs/Pleura: There is flattening of the diaphragm with increased lucency of the lungs. No evidence o f pneumothorax, pleural effusion or focal consolidation. Pulmonary vascularity: Unremarkable. Heart/mediastinum: Cardiomediastinal silhouette is unremarkable. Musculoskeletal: No acute osseous pathology. Other findings: None Lines/Tubes: Endotracheal tube with distal tip 6.4 cm above the artemio Nasogastric tube with side-port projecting over the distal esophagus. IMPRESSION: 1. Enteric tube side port projects near the gastroesophageal junction. Advancement of at least 5 cm is recommended. 2. Endotracheal tube in appropriate position. 3. COPD changes are seen on prior CT.
[2022-04-05 08:14] LABS: Glucose,Whole Blood 238 mg/dL (70-110)
--- NOTE | 2022-04-05 08:20 | P.PN ---
Subjective Principal diagnosis: Respiratory failure This is 69 white male with known history of COPD who is not intubated but slowly weaning. The patient is on FiO2 35%. Still requiring pressors. Objective - Vital Signs Vital signs: Vital Signs Temp 97.9 F 04/05/22 08:00 Pulse 89 04/05/22 08:00 Resp 20 04/05/22 08:00 BP 92/62 04/05/22 08:00 Pulse Ox 93 L 04/05/22 08:00 FiO2 35 04/05/22 08:00 Intake & Output 04/04/22 04/05/22 04/05/22 18:59 06:59 18:59 Intake Total 5782.078 2595.668 178.683 Output Total 1535 710 80 Balance -14.870 977.668 98.683 Weight 75 kg Intake: IV 1024 936 78 0.9 kvo 10 Sodium Chloride 0.9% 1, 975 900 75 000 ml @ 75 mls/hr IV . [id number] [facility] Rx#:[id number] pressure bag 39 36 3 Intake, IV Titration 326.130 111.668 20.683 Amount Piperacillin-Tazobactam 3 100 .375 gm In Sodium Chloride 0.9% 100 ml @ 25 mls/hr IVPB Q8HR [facility] Rx# :[id number] propofoL 1,000 mg In 226.130 111.668 20.683 Empty Bag 1 bag @ 5 MCG/ KG/MIN 2.041 mls/hr IV . Q24H [facility] Rx#:[id number] Tube Feeding 140 580 50 Other 30 60 30 Output: Urine 1535 710 80 Other: Voiding Method Indwelling Catheter Indwelling Catheter # Bowel Movements 1 ABP, PAP, CO, CI - Last Documented Arterial Blood Pressure 108/60 - Constitutional General appearance: Present: no acute distress - EENT Eyes: Absent: abnormal pupil - Neck Neck: Absent: lymphadenopathy - Respiratory Respiratory: bilateral: diminished - Cardiovascular Rhythm: regular Heart sounds: normal: S1, S2 Abnormal Heart Sounds: Absent: S3 Gallop - Gastrointestinal General gastrointestinal: Present: soft. Absent: tenderness - Integumentary Integumentary: Absent: cellulitis - Labs CBC & Chem 7: 04/05/22 04:20 04/05/22 04:20 Labs: Abnormal Lab Results - Last 24 Hours (Table) 04/04/22 04/04/22 04/04/22 Range/Units 12:17 15:30 19:03 WBC (3.8-10.6) k/uL RBC (4.30-5.90) m/uL Hgb (13.0-17.5) gm/dL Hct (39.0-53.0) % MCV (80.0-100.0) fL MCHC (31.0-37.0) g/dL RDW (11.5-15.5) % Neutrophils # (1.3-7.7) k/uL Lymphocytes # (1.0-4.8) k/uL Macrocytosis ABG pH (7.35-7.45) ABG pCO2 (35-45) mmHg ABG pO2 (83-108) mmHg ABG HCO3 (21-25) mmol/L ABG Total CO2 (19-24) mmol/L ABG O2 Saturation (94-97) % Sodium (137-145) mmol/L Chloride (98-107) mmol/L Carbon Dioxide (22-30) mmol/L BUN (9-20) mg/dL Creatinine (0.66-1.25) mg/dL Glucose (74-99) mg/dL POC Glucose (mg/dL) 180 H 190 H 158 H (70-110) mg/dL Total Bilirubin (0.2-1.3) mg/dL Alkaline Phosphatase (38-126) U/L Total Protein (6.3-8.2) g/dL Albumin (3.5-5.0) g/dL 04/04/22 04/05/22 04/05/22 Range/Units 23:26 03:57 04:20 WBC (3.8-10.6) k/uL RBC (4.30-5.90) m/uL Hgb (13.0-17.5) gm/dL Hct (39.0-53.0) % MCV (80.0-100.0) fL MCHC (31.0-37.0) g/dL RDW (11.5-15.5) % Neutrophils # (1.3-7.7) k/uL Lymphocytes # (1.0-4.8) k/uL Macrocytosis ABG pH (7.35-7.45) ABG pCO2 (35-45) mmHg ABG pO2 (83-108) mmHg ABG HCO3 (21-25) mmol/L ABG Total CO2 (19-24) mmol/L ABG O2 Saturation (94-97) % Sodium 146 H (137-145) mmol/L Chloride 108 H (98-107) mmol/L Carbon Dioxide 32 H (22-30) mmol/L BUN 52 H (9-20) mg/dL Creatinine 0.64 L (0.66-1.25) mg/dL Glucose 235 H (74-99) mg/dL POC Glucose (mg/dL) 114 H 202 H (70-110) mg/dL Total Bilirubin <0.1 L (0.2-1.3) mg/dL Alkaline Phosphatase 137 H (38-126) U/L Total Protein 5.2 L (6.3-8.2) g/dL Albumin 2.5 L (3.5-5.0) g/dL 04/05/22 04/05/22 04/05/22 Range/Units 04:20 05:45 06:19 WBC 11.8 H (3.8-10.6) k/uL RBC 3.19 L (4.30-5.90) m/uL Hgb 9.9 L (13.0-17.5) gm/dL Hct 33.3 L (39.0-53.0) % MCV 104.4 H (80.0-100.0) fL MCHC 29.6 L (31.0-37.0) g/dL RDW 21.1 H (11.5-15.5) % Neutrophils # 11.1 H (1.3-7.7) k/uL Lymphocytes # 0.3 L (1.0-4.8) k/uL Macrocytosis Marked A ABG pH 7.28 L (7.35-7.45) ABG pCO2 69 H (35-45) mmHg ABG pO2 69 L (83-108) mmHg ABG HCO3 33 H (21-25) mmol/L ABG Total CO2 35 H (19-24) mmol/L ABG O2 Saturation 93.1 L (94-97) % Sodium (137-145) mmol/L Chloride (98-107) mmol/L Carbon Dioxide (22-30) mmol/L BUN (9-20) mg/dL Creatinine (0.66-1.25) mg/dL Glucose (74-99) mg/dL POC Glucose (mg/dL) 220 H (70-110) mg/dL Total Bilirubin (0.2-1.3) mg/dL Alkaline Phosphatase (38-126) U/L Total Protein (6.3-8.2) g/dL Albumin (3.5-5.0) g/dL 04/05/22 Range/Units 08:12 WBC (3.8-10.6) k/uL RBC (4.30-5.90) m/uL Hgb (13.0-17.5) gm/dL Hct (39.0-53.0) % MCV (80.0-100.0) fL MCHC (31.0-37.0) g/dL RDW (11.5-15.5) % Neutrophils # (1.3-7.7) k/uL Lymphocytes # (1.0-4.8) k/uL Macrocytosis ABG pH (7.35-7.45) ABG pCO2 (35-45) mmHg ABG pO2 (83-108) mmHg ABG HCO3 (21-25) mmol/L ABG Total CO2 (19-24) mmol/L ABG O2 Saturation (94-97) % Sodium (137-145) mmol/L Chloride (98-107) mmol/L Carbon Dioxide (22-30) mmol/L BUN (9-20) mg/dL Creatinine (0.66-1.25) mg/dL Glucose (74-99) mg/dL POC Glucose (mg/dL) 238 H (70-110) mg/dL Total Bilirubin (0.2-1.3) mg/dL Alkaline Phosphatase (38-126) U/L Total Protein (6.3-8.2) g/dL Albumin (3.5-5.0) g/dL Microbiology - Last 24 Hours (Table) 04/01/22 11:54 Blood Culture - Preliminary Blood No Growth after 72 hours 04/01/22 09:09 Blood Culture - Preliminary Blood No Growth after 72 hours Assessment and Plan (1) COPD (chronic obstructive pulmonary disease) Current Visit: Yes Status: Acute Code(s): J44.9 - CHRONIC OBSTRUCTIVE PULMONARY DISEASE, UNSPECIFIED SNOMED Code(s): 97661673 (2) Acute exacerbation of chronic obstructive pulmonary disease Current Visit: No Status: Acute Code(s): J44.1 - CHRONIC OBSTRUCTIVE PULMO NARY DISEASE W (ACUTE) EXACERBATION SNOMED Code(s): 408244772 (3) Acute respiratory failure Current Visit: No Status: Acute Code(s): J96.00 - ACUTE RESPIRATORY FAILURE, UNSP W HYPOXIA OR HYPERCAPNIA SNOMED Code(s): 44965544 (4) Pneumonia Current Visit: No Status: Acute Code(s): J18.9 - PNEUMONIA, UNSPECIFIED ORGANISM SNOMED Code(s): 823546139 Plan: Continue current respiratory support. Check CBC and CMP in a.m. Prognosis is guarded.
[2022-04-05] MEDS: HYDROCORTISONE SUCCINATE 100 MG/2 ML VIAL IV SCH (08:23)
[2022-04-05] MEDS: ASPIRIN 81 MG PO SCH ×3 (08:27→16:06)
[2022-04-05] MEDS: PIPERACILLIN-TAZOBACTAM 3.375 GM in SODIUM CHLORIDE 0.9% 100 ML IVPB SCH ×2 (08:27→15:54)
[2022-04-05] MEDS: GABAPENTIN 300 MG CAP PO SCH ×4 (08:28→21:36)
[2022-04-05] MEDS: CHLORHEXIDINE GLUCONATE 15 ML CUP MUCOUS MEM SCH ×2 (08:28→21:36)
[2022-04-05] MEDS: CHOLECALCIFEROL 25 MCG (1000 IU) TABLET PO SCH ×3 (08:28→16:06)
[2022-04-05] MEDS: GUAIFENESIN 400 MG PO SCH ×3 (08:29→09:45)
[2022-04-05] MEDS: HEPARIN SODIUM,PORCINE/PF 5,000 UNIT/0.5 ML SYRINGE SQ SCH ×2 (08:29→21:36)
[2022-04-05] MEDS: METOPROLOL SUCCINATE (ER) 25 MG TAB.ER.24H PO SCH ×3 (08:30→16:05)
[2022-04-05] MEDS: MULTIVITAMINS, THERA 1 EACH TAB PO SCH ×2 (08:31→09:45)
[2022-04-05] MEDS: THEOPHYLLINE 24 HOUR 300 MG CAP.ER.24H PO SCH ×2 (08:32→09:45)
[2022-04-05] MEDS: PANTOPRAZOLE 40 MG/10 ML VIAL IVP SCH (08:32)
--- NOTE | 2022-04-05 10:05 | P.GSCN ---
History of Present Illness Consult date: 04/05/22 History of present illness: CHIEF COMPLAINT: Shortness of breath HISTORY OF PRESENT ILLNESS: This is a 71-year-old male who presented with shortness of breath admitted to the hospital with acute on chronic hypoxic respiratory failure secondary to COPD, aspiration pneumonia and lung cancer. Patient currently in the ICU and intubated. It appears that family wishes in clude trach and PEG with PICC line placement and eventually transferred to [facility] care [facility]. Surgical service has been consulted for tracheostomy and PEG tube placement. PAST MEDICAL HISTORY: See list. PAST SURGICAL HISTORY: See list. MEDICATIONS: See list. ALLERGIES: See list. SOCIAL HISTORY: No illicit drug use. REVIEW OF SYSTEMS: Patient intubated and sedated unable to obtain PHYSICAL EXAM: VITAL SIGNS: Reviewed GENERAL: Well-developed in no acute distress. HEENT: No sclera icterus. Extraocular movements grossly intact. Moist buccal mucosa. Head is atraumatic, normocephalic. No nasal drainage. ABDOMEN: Soft. Nondistended. Nontender NEUROLOGIC: Intubated and sedated LABORATORY DATA: WBC is 11.8 Hgb 9.9 platelets 439 Sodium 146 potassium 4.9 creatinine 0.64 glucose 238 Albumin 2.5 IMAGING: ASSESSMENT: 1. Severe protein calorie malnutrition 2. Acute respiratory failure requiring mechanical ventilation secondary to COPD, aspiration pneumonia and lung cancer PLAN: -Patient scheduled for tracheostomy and PEG tube placement today with Dr. olivier -Hold tube feeds -Hold oral medications -Hold SC Heparin. SC Heparin was given this morning Thank you for this consultation Physician [employer] note has been reviewed by physician. Signing provider agrees with the documented findings, assessment, and plan of care. Past Medical History Past Medical History: Cancer, COPD, Hearing Disorder / Deafness, Hyperlipidemia, Osteoarthritis (OA), Pneumonia, Prostate Disorder Additional Past Medical History / Comment(s): Hard of hearing, has hearing aids but does not use them. FREQUENT HOARSENESS. HX PNEUMONIA/VENITLATED/TRACH @ [facility] FROM 06/12/18 TO 06/30/18. O2/2L @ NIGHT. RESTLESS LEG. NEUROPATHY. HX BLADDER CALCULI. HX ONE SEIZURE DURING BRONCHOSCOPY. LUNG CA 11/2021. History of Any Multi-Drug Resistant Organisms: None Reported Past Surgical History: Heart Catheterization, Prostate Surgery Additional Past Surgical History / Comment(s): TURP, RIGHT WRIST BIOPSY (SQ CELL). BILATERAL KNEE ARTHROSCOPIES. TRIGGER FINGER RELEASE BILATERAL HANDS. AMPUTATION TIP OF LEFT INDEX FINGER. Tracheotomy. BRONCHOSCOPY. Past Anesthesia/Blood Transfusion Reactions: No Reported Reaction Past Psychological History: Anxiety Smoking Status: Former smoker Past Alcohol Use History: Rare Additional Past Alcohol Use History / Comment(s): QUIT SMOKING February 2021. SMOKED 1/2 PPD FOR 50+ YEARS. Past Drug Use History: None Reported - Past Family History Mother Family Medical History: Cancer Additional Family Medical History / Comment(s): LUNG Cancer. Father Family Medical History: Cancer Medications and Allergies Home Medications Medication Instructions Recorded Confirmed Type ALPRAZolam [Xanax] 0.5 mg PO TID 09/08/18 03/31/22 History Atorvastatin [Lipitor] 10 mg PO HS 09/08/18 03/31/22 History HYDROcodone/APAP 10-325MG [[place] 1 tab PO QID 09/08/18 03/31/22 History 10-325] Ipratropium-Albuterol Nebulize 3 ml INHALATION RT-QID 09/08/18 03/31/22 History [Duoneb 0.5 mg-3 mg/3 ml Soln] Montelukast [Singulair] 10 mg PO HS 09/08/18 03/31/22 History Theophylline 12 Hour [Jaskaran-Dur] 300 mg PO BID 09/08/18 03/31/22 History rOPINIRole HCL [Requip] 0.5 mg PO HS 09/08/18 03/31/22 History Calcium Carbonate [Calcium] 600 mg PO HS 11/28/18 03/31/22 History Multivitamins, Thera [Multivitamin 1 tab PO DAILY 11/28/18 03/31/22 History (formulary)] Aspirin EC [Ecotrin Low Dose] 81 mg PO DAILY 04/30/21 03/31/22 History Cholecalciferol [Vitamin D3 (25 50 mcg PO DAILY 04/30/21 03/31/22 History Mcg = 1000 Iu)] Pantoprazole [Protonix] 40 mg PO DAILY 04/30/21 03/31/22 History Albuterol Sulfate [Albuterol 2 puff PO RT-Q6H PRN 03/31/22 03/31/22 History Sulfate Hfa] Dm/Acetaminophen/Doxylamine [Vicks 30 ml PO HS 03/31/22 03/31/22 History Nyquil Cold-Flu Liquid] Fluticasone/Umeclidin/Vilanter 1 puff INHALATION RT-DAILY 03/31/22 03/31/22 History [Trelegy Ellipta 200-62.5-25] Gabapentin [Neurontin] 300 mg PO TID 03/31/22 03/31/22 History Latanoprost/Pf [Latanoprost 0.005% 1 drop BOTH EYES HS 03/31/22 03/31/22 History Eye Drop] guaiFENesin 400 mg PO BID 03/31/22 03/31/22 History predniSONE 10 mg PO DAILY 03/31/22 03/31/22 History Allergies Allergy/AdvReac Type Severity Reaction Status Date / Time No Known Allergies Allergy Verified 03/31/22 22:27 Surgical - Exam Vital Signs Temp Pulse Resp BP Pulse Ox 97.6 F 116 H 26 H 175/94 96 03/31/22 21:38 03/31/22 21:38 03/31/22 21:38 03/31/22 21:38 03/31/22 21:38 Results - Labs 04/05/22 04:20 04/05/22 04:20 Abnormal Lab Results - Last 24 Hours (Table) 04/04/22 04/04/22 04/04/22 Range/Units 12:17 15:30 19:03 WBC (3.8-10.6) k/uL RBC (4.30-5.90) m/uL Hgb (13.0-17.5) gm/dL Hct (39.0-53.0) % MCV (80.0-100.0) fL MCHC (31.0-37.0) g/dL RDW (11.5-15.5) % Neutrophils # (1.3-7.7) k/uL Lymphocytes # (1.0-4.8) k/uL Macrocytosis ABG pH (7.35-7.45) ABG pCO2 (35-45) mmHg ABG pO2 (83-108) mmHg ABG HCO3 (21-25) mmol/L ABG Total CO2 (19-24) mmol/L ABG O2 Saturation (94-97) % Sodium (137-145) mmol/L Chloride (98-107) mmol/L Carbon Dioxide (22-30) mmol/L BUN (9-20) mg/dL Creatinine (0.66-1.25) mg/dL Glucose (74-99) mg/dL POC Glucose (mg/dL) 180 H 190 H 158 H (70-110) mg/dL Total Bilirubin (0.2-1.3) mg/dL Alkaline Phosphatase (38-126) U/L Total Protein (6.3-8.2) g/dL Albumin (3.5-5.0) g/dL 04/04/22 04/05/22 04/05/22 Range/Units 23:26 03:57 04:20 WBC (3.8-10.6) k/uL RBC (4.30-5.90) m/uL Hgb (13.0-17.5) gm/dL Hct (39.0-53.0) % MCV (80.0-100.0) fL MCHC (31.0-37.0) g/dL RDW (11.5-15.5) % Neutrophils # (1.3-7.7) k/uL Lymphocytes # (1.0-4.8) k/uL Macrocytosis ABG pH (7.35-7.45) ABG pCO2 (35-45) mmHg ABG pO2 (83-108) mmHg ABG HCO3 (21-25) mmol/L ABG Total CO2 (19-24) mmol/L ABG O2 Saturation (94-97) % Sodium 146 H (137-145) mmol/L Chloride 108 H (98-107) mmol/L Carbon Dioxide 32 H (22-30) mmol/L BUN 52 H (9-20) mg/dL Creatinine 0.64 L (0.66-1.25) mg/dL Glucose 235 H (74-99) mg/dL POC Glucose (mg/dL) 114 H 202 H (70-110) mg/dL Total Bilirubin <0.1 L (0.2-1.3) mg/dL Alkaline Phosphatase 137 H (38-126) U/L Total Protein 5.2 L (6.3-8.2) g/dL Albumin 2.5 L (3.5-5.0) g/dL 04/05/22 04/05/22 04/05/22 Range/Units 04:20 05:45 06:19 WBC 11.8 H (3.8-10.6) k/uL RBC 3.19 L (4.30-5.90) m/uL Hgb 9.9 L (13.0-17.5) gm/dL Hct 33.3 L (39.0-53.0) % MCV 104.4 H (80.0-100.0) fL MCHC 29.6 L (31.0-37.0) g/dL RDW 21.1 H (11.5-15.5) % Neutrophils # 11.1 H (1.3-7.7) k/uL Lymphocytes # 0.3 L (1.0-4.8) k/uL Macrocytosis Marked A ABG pH 7.28 L (7.35-7.45) ABG pCO2 69 H (35-45) mmHg ABG pO2 69 L (83-108) mmHg ABG HCO3 33 H (21-25) mmol/L ABG Total CO2 35 H (19-24) mmol/L ABG O2 Saturation 93.1 L (94-97) % Sodium (137-145) mmol/L Chloride (98-107) mmol/L Carbon Dioxide (22-30) mmol/L BUN (9-20) mg/dL Creatinine (0.66-1.25) mg/dL Glucose (74-99) mg/dL POC Glucose (mg/dL) 220 H (70-110) mg/dL Total Bilirubin (0.2-1.3) mg/dL Alkaline Phosphatase (38-126) U/L Total Protein (6.3-8.2) g/dL Albumin (3.5-5.0) g/dL 04/05/22 Range/Units 08:12 WBC (3.8-10.6) k/uL RBC (4.30-5.90) m/uL Hgb (13.0-17.5) gm/dL Hct (39.0-53.0) % MCV (80.0-100.0) fL MCHC (31.0-37.0) g/dL RDW (11.5-15.5) % Neutrophils # (1.3-7.7) k/uL Lymphocytes # (1.0-4.8) k/uL Macrocytosis ABG pH (7.35-7.45) ABG pCO2 (35-45) mmHg ABG pO2 (83-108) mmHg ABG HCO3 (21-25) mmol/L ABG Total CO2 (19-24) mmol/L ABG O2 Saturation (94-97) % Sodium (137-145) mmol/L Chloride (98-107) mmol/L Carbon Dioxide (22-30) mmol/L BUN (9-20) mg/dL Creatinine (0.66-1.25) mg/dL Glucose (74-99) mg/dL POC Glucose (mg/dL) 238 H (70-110) mg/dL Total Bilirubin (0.2-1.3) mg/dL Alkaline Phosphatase (38-126) U/L Total Protein (6.3-8.2) g/dL Albumin (3.5-5.0) g/dL Microbiology - Last 24 Hours (Table) 04/01/22 11:54 Blood Culture - Preliminary Blood No Growth after 72 hours 04/01/22 09:09 Blood Culture - Preliminary Blood No Growth after 72 hours Diabetes panel 04/05/22 Range/Units 04:20 Sodium 146 H (137-145) mmol/L Potassium 4.9 (3.5-5.1) mmol/L Chloride 108 H (98-107) mmol/L Carbon Dioxide 32 H (22-30) mmol/L BUN 52 H (9-20) mg/dL Creatinine 0.64 L (0.66-1.25) mg/dL Glucose 235 H (74-99) mg/dL Calcium 8.9 (8.4-10.2) mg/dL AST 25 (17-59) U/L ALT 40 (4-49) U/L Alkaline Phosphatase 137 H (38-126) U/L Total Protein 5.2 L (6.3-8.2) g/dL Albumin 2.5 L (3.5-5.0) g/dL Calcium panel 04/05/22 Range/Units 04:20 Calcium 8.9 (8.4-10.2) mg/dL Albumin 2.5 L (3.5-5.0) g/dL Pituitary panel 04/05/22 Range/Units 04:20 Sodium 146 H (137-145) mmol/L Potassium 4.9 (3.5-5.1) mmol/L Chloride 108 H (98-107) mmol/L Carbon Dioxide 32 H (22-30) mmol/L BUN 52 H (9-20) mg/dL Creatinine 0.64 L (0.66-1.25) mg/dL Glucose 235 H (74-99) mg/dL Calcium 8.9 (8.4-10.2) mg/dL Adrenal panel 04/05/22 Range/Units 04:20 Sodium 146 H (137-145) mmol/L Potassium 4.9 (3.5-5.1) mmol/L Chloride 108 H (98-107) mmol/L Carbon Dioxide 32 H (22-30) mmol/L BUN 52 H (9-20) mg/dL Creatinine 0.64 L (0.66-1.25) mg/dL Glucose 235 H (74-99) mg/dL Calcium 8.9 (8.4-10.2) mg/dL Total Bilirubin <0.1 L (0.2-1.3) mg/dL AST 25 (17-59) U/L ALT 40 (4-49) U/L Alkaline Phosphatase 137 H (38-126) U/L Total Protein 5.2 L (6.3-8.2) g/dL Albumin 2.5 L (3.5-5.0) g/dL
--- NOTE | 2022-04-05 10:27 | P.PN ---
Subjective Progress Note Date: 04/05/22 Principal diagnosis: Respiratory failure. Reevaluated today on 04/03/22, patient remains in the ICU intubated and mechanically ventilated. He is now on assist control rate of 20 to volume 450 FiO2 35% and PEEP of 5. Peak airway pressure is 35. His ABG showed a pO2 of 106 pCO2 56 pH of 7.34. Patient remains on 35% FiO2. Patient is off norepinephrine he remains on normal saline at 50 mL an hour and on propofol at 50 mcg/kg/m. Patient is receiving vital Hp at 50 mL/h the goal is 50. On physical examination continues to have rhonchi and wheezes bilaterally chest x- rays showing slight improvement in his bilateral infiltrates. Left hilar mass remains the same. Hence I have no plans to wean the patient today, and the family has made a decision that the patient does not wean in the next few days, they would like him to proceed with tracheostomy and PEG tube placement and eventual placement. We will decide this early next week in the meantime patient is not related to believe that extubated. CBC is relatively unremarkable WBC 7.3 hemoglobin is 8.8, basic metabolic profile is relatively normal, BUN is 67 creatinine is 1.36 hence we will increase his IV fluid to 75 mL Reevaluated today on 04/04/22, patient remains in the ICU, intubated and mechanically ventilated. Not much of a chemical cell changer the last 24 hours, patient remains on assist control rate of 20 to volume 450 FiO2 35% and PEEP of 5. ABG showed a pO2 of 69 pCO2 of 67 pH of 7.29. Hence we'll increase his rate to 24. Patient remains on propofol at 50 mcg/kg/m, IV fluid 0.9 normal saline at 75 mL per hour. He is receiving vital HP at 50 mL per hour/cor. His sputum is coming back positive for Serratia and Haemophilus influenza both are covered with Zosyn. Patient has been on Zosyn all along. Patient is sedated however I will try to awaken the patient today, and assess mental status. On physical examination he continues to have tightness and wheezing and I don't believe the patient is ready to have any weaning trials again. Today I even discussed the situation all over with the family about possible tracheostomy PEG tube placement PICC line placement and eventual placement and a ventilator facility. I also discussed the option of comfort care measures. Family seems to be inclin ed to proceed with tracheostomy and PEG tube placement as well as PICC line placement and eventual transfer to a ventilator facility/selective care specialty. Prognosis is obviously very poor, and the family is very well aware that the patient has poor prognosis with severe end-stage COPD and bronchogenic carcinoma. WBC count is 8.8 hemoglobin is 9.7, basic metabolic profile is normal BUN is 60 creatinine 0.68. For some reason a CT angio the chest was ordered yesterday, no evidence of pulmonary embolism clinically I never thought that the patient had pulmonary embolism and the clinical presentation is not a presentation of pulmonary embolism. Progress note dated 04/05/2022. 71-year-old male admitted to the hospital on March 31, with respiratory failure. He was intubated on the same day. He remains on mechanical ventilator. I spoke to his and daughter today. They will agree to tracheostomy and PEG tube placement. This was apparently discussed by my partner with the family yesterday, who knows the patient well, and who has been taking care of this patient for over 20 years. Currently, he remains on the volume assist control, rate 20, tidal volume 450, FiO2 35%, and PEEP of 5. Arterial blood gases show pO2 of 69, pCO2 of 69, and pH is 7.28. The patient remains on propofol at 35 mcg/m, saline at 75 mL an hour, and vital high protein at 50 mL an hour, with a goal of 50 mL an hour. Norepinephrine has been weaned off and the patient remains on Zosyn. White count 11.8, hemoglobin 9.9, hematocrit 33, platelet count 439,000. Sodium 146, potassium 4.9, chlorides 108, CO2 32, BUN 52, creatinine 0.64. Sputum samples from April 01 positive for Serratia, and Haemophilus. Chest x-ray is essentially unchanged. Objective - Vital Signs Vital signs: Vital Signs Temp 97.9 F 04/05/22 08:00 Pulse 89 04/05/22 08:00 Resp 20 04/05/22 08:00 BP 92/62 04/05/22 08:00 Pulse Ox 93 L 04/05/22 08:00 FiO2 35 04/05/22 08:00 Intake & Output 04/04/22 04/05/22 04/05/22 18:59 06:59 18:59 Intake Total 7410.236 9221.668 331.683 Output Total 1535 710 190 Balance -14.870 977.668 141.683 Weight 75 kg Intake: IV 1024 936 181 0.9 kvo 10 Piperacillin-Tazobactam 3 25 .375 gm In Sodium Chloride 0.9% 100 ml @ 25 mls/hr IVPB Q8HR [facility] Rx# :[id number] Sodium Chloride 0.9% 1, 975 900 150 000 ml @ 75 mls/hr IV . [id number] [facility] Rx#:[id number] pressure bag 39 36 6 Intake, IV Titration 326.130 111.668 20.683 Amount Piperacillin-Tazobactam 3 100 .375 gm In Sodium Chloride 0.9% 100 ml @ 25 mls/hr IVPB Q8HR [facility] Rx# :[id number] propofoL 1,000 mg In 226.130 111.668 20.683 Empty Bag 1 bag @ 5 MCG/ KG/MIN 2.041 mls/hr IV . Q24H [facility] Rx#:[id number] Tube Feeding 140 580 100 Other 30 60 30 Output: Urine 1535 710 190 Other: Voiding Method Indwelling Catheter Indwelling Catheter # Bowel Movements 1 ABP, PAP, CO, CI - Last Documented Arterial Blood Pressure 108/60 - Exam No acute distress, currently on propofol, with an orally placed endotracheal tube. HEENT examination is grossly unremarkable. Neck supple. Full range of motion. No adenopathy thyromegaly or neck vein distention. Cardiovascular examination reveals regular rhythm rate. S1-S2 normal. No S3 or S4. No discernible murmur noted. Heart sounds are distant. Heart rate 89 bpm. Lungs reveal scattered bilateral rhonchi. Breath sounds equal bilaterally wheezes. No crackles. Saturations 93%. Abdomen soft bowel sounds are heard. No masses or tenderness. Extremities are intact. No cyanosis clubbing or edema. Skin is without rash or lesion. Neurologic examination cannot be properly assessed. - Labs CBC & Chem 7: 04/05/22 04:20 04/05/22 04:20 Labs: Abnormal Lab Results - Last 24 Hours (Table) 04/04/22 04/04/22 04/04/22 Range/Units 12:17 15:30 19:03 WBC (3.8-10.6) k/uL RBC (4.30-5.90) m/uL Hgb (13.0-17.5) gm/dL Hct (39.0-53.0) % MCV (80.0-100.0) fL MCHC (31.0-37.0) g/dL RDW (11.5-15.5) % Neutrophils # (1.3-7.7) k/uL Lymphocytes # (1.0-4.8) k/uL Macrocytosis ABG pH (7.35-7.45) ABG pCO2 (35-45) mmHg ABG pO2 (83-108) mmHg ABG HCO3 (21-25) mmol/L ABG Total CO2 (19-24) mmol/L ABG O2 Saturation (94-97) % Sodium (137-145) mmol/L Chloride (98-107) mmol/L Carbon Dioxide (22-30) mmol/L BUN (9-20) mg/dL Creatinine (0.66-1.25) mg/dL Glucose (74-99) mg/dL POC Glucose (mg/dL) 180 H 190 H 158 H (70-110) mg/dL Total Bilirubin (0.2-1.3) mg/dL Alkaline Phosphatase (38-126) U/L Total Protein (6.3-8.2) g/dL Albumin (3.5-5.0) g/dL 04/04/22 04/05/22 04/05/22 Range/Units 23:26 03:57 04:20 WBC (3.8-10.6) k/uL RBC (4.30-5.90) m/uL Hgb (13.0-17.5) gm/dL Hct (39.0-53.0) % MCV (80.0-100.0) fL MCHC (31.0-37.0) g/dL RDW (11.5-15.5) % Neutrophils # (1.3-7.7) k/uL Lymphocytes # (1.0-4.8) k/uL Macrocytosis ABG pH (7.35-7.45) ABG pCO2 (35-45) mmHg ABG pO2 (83-108) mmHg ABG HCO3 (21-25) mmol/L ABG Total CO2 (19-24) mmol/L ABG O2 Saturation (94-97) % Sodium 146 H (137-145) mmol/L Chloride 108 H (98-107) mmol/L Carbon Dioxide 32 H (22-30) mmol/L BUN 52 H (9-20) mg/dL Creatinine 0.64 L (0.66-1.25) mg/dL Glucose 235 H (74-99) mg/dL POC Glucose (mg/dL) 114 H 202 H (70-110) mg/dL Total Bilirubin <0.1 L (0.2-1.3) mg/dL Alkaline Phosphatase 137 H (38-126) U/L Total Protein 5.2 L (6.3-8.2) g/dL Albumin 2.5 L (3.5-5.0) g/dL 04/05/22 04/05/22 04/05/22 Range/Units 04:20 05:45 06:19 WBC 11.8 H (3.8-10.6) k/uL RBC 3.19 L (4.30-5.90) m/uL Hgb 9.9 L (13.0-17.5) gm/dL Hct 33.3 L (39.0-53.0) % MCV 104.4 H (80.0-100.0) fL MCHC 29.6 L (31.0-37.0) g/dL RDW 21.1 H (11.5-15.5) % Neutrophils # 11.1 H (1.3-7.7) k/uL Lymphocytes # 0.3 L (1.0-4.8) k/uL Macrocytosis Marked A ABG pH 7.28 L (7.35-7.45) ABG pCO2 69 H (35-45) mmHg ABG pO2 69 L (83-108) mmHg ABG HCO3 33 H (21-25) mmol/L ABG Total CO2 35 H (19-24) mmol/L ABG O2 Saturation 93.1 L (94-97) % Sodium (137-145) mmol/L Chloride (98-107) mmol/L Carbon Dioxide (22-30) mmol/L BUN (9-20) mg/dL Creatinine (0.66-1.25) mg/dL Glucose (74-99) mg/dL POC Glucose (mg/dL) 220 H (70-110) mg/dL Total Bilirubin (0.2-1.3) mg/dL Alkaline Phosphatase (38-126) U/L Total Protein (6.3-8.2) g/dL Albumin (3.5-5.0) g/dL 04/05/22 Range/Units 08:12 WBC (3.8-10.6) k/uL RBC (4.30-5.90) m/uL Hgb (13.0-17.5) gm/dL Hct (39.0-53.0) % MCV (80.0-100.0) fL MCHC (31.0-37.0) g/dL RDW (11.5-15.5) % Neutrophils # (1.3-7.7) k/uL Lymphocytes # (1.0-4.8) k/uL Macrocytosis ABG pH (7.35-7.45) ABG pCO2 (35-45) mmHg ABG pO2 (83-108) mmHg ABG HCO3 (21-25) mmol/L ABG Total CO2 (19-24) mmol/L ABG O2 Saturation (94-97) % Sodium (137-145) mmol/L Chloride (98-107) mmol/L Carbon Dioxide (22-30) mmol/L BUN (9-20) mg/dL Creatinine (0.66-1.25) mg/dL Glucose (74-99) mg/dL POC Glucose (mg/dL) 238 H (70-110) mg/dL Total Bilirubin (0.2-1.3) mg/dL Alkaline Phosphatase (38-126) U/L Total Protein (6.3-8.2) g/dL Albumin (3.5-5.0) g/dL Microbiology - Last 24 Hours (Table) 04/01/22 11:54 Blood Culture - Preliminary Blood No Growth after 72 hours 04/01/22 09:09 Blood Culture - Preliminary Blood No Growth after 72 hours Assessment and Plan Assessment: Acute on chronic hypoxemic and hypercapnic respiratory failure, status post intubation and mechanical ventilation on 03/31/2022. Bilateral pneumonia, secondary to Serratia and Haemophilus. Acute exacerbation of COPD. History of squamous cell lung cancer, diagnosed December 2021. Previous history of respiratory failure, requiring intubation, and subsequent tracheostomy. Generalized anxiety disorder. Severe/stage III/stage IV COPD, with an FEV1 that's 35%. Degenerative joint disease. Acute kidney injury. Plan: Plan dated 04/05/2022. The patient will proceed with a tracheostomy and PEG tube, as per the wishes of the and daughter. The patient on IV Zosyn, and other breathing treatments. The patient also remains on GI and DVT prophylaxis. No additional recommendations are made. I did mention to the , that the patient may end up at long-term acute care facility or specialized nursing facility. Prognosis is extremely poor. We'll continue with tube feeds. Norepinephrine has been weaned off. Labs, x-rays, medications are all reviewed. Time with Patient: Greater than 30
[2022-04-05 11:33] LABS: Glucose,Whole Blood 185 mg/dL (70-110)
[2022-04-05] MEDS: ATORVASTATIN 10 MG TAB PO SCH ×2 (16:07→21:36)
[2022-04-05 16:29] LABS: Glucose,Whole Blood 167 mg/dL (70-110)
[2022-04-05] MEDS: LATANOPROST 0.005% OPHTH DROPS 2.5 ML BTL BOTH EYES SCH (21:39)
[2022-04-05 21:44] LABS: Glucose,Whole Blood 188 mg/dL (70-110)
[2022-04-05 23:44] LABS: Glucose,Whole Blood 173 mg/dL (70-110)
[2022-04-06] MEDS: PIPERACILLIN-TAZOBACTAM 3.375 GM in SODIUM CHLORIDE 0.9% 100 ML IVPB SCH ×3 (00:16→15:56)
[2022-04-06] MEDS: INSULIN ASPART (NovoLOG) 100 UNIT/ML VIAL SQ SCH ×6 (00:16→20:33)
[2022-04-06 04:02] LABS: Anisocytosis Moderate; HCT 31.6 % (39.0-53.0); HGB 9.4 gm/dL (13.0-17.5); Hypochromasia Marked; MCH 30.4 pg (25.0-35.0); MCHC 29.6 g/dL (31.0-37.0); MCV 102.7 fL (80.0-100.0); Mean Platelet Volume 8.9; Platelet Count 416 k/uL (150-450); RBC 3.08 m/uL (4.30-5.90); RDW 21.3 % (11.5-15.5); WBC 11.4 k/uL (3.8-10.6)
[2022-04-06 04:10] LABS: Macrocytosis Marked
[2022-04-06 04:19] LABS: ALT 47 U/L (4-49); AST 40 U/L (17-59); African American GFR (CKD) >90 (>60 ml/min/1.73 sqM); Albumin 2.5 g/dL (3.5-5.0); Alkaline Phosphatase 146 U/L (38-126); Anion Gap 7 mmol/L; Blood Urea Nitrogen 47 mg/dL (9-20); Calcium 9.3 mg/dL (8.4-10.2); Carbon Dioxide 32 mmol/L (22-30); Chloride 109 mmol/L (98-107); Glucose 144 mg/dL (74-99); Non-African American GFR(CKD) >90 (>60 ml/min/1.73 sqM); Potassium 4.6 mmol/L (3.5-5.1); Sodium 148 mmol/L (137-145); Total Bilirubin <0.1 mg/dL (0.2-1.3); Total Protein 5.1 g/dL (6.3-8.2)
[2022-04-06 05:37] LABS: ABG HCO3 34 mmol/L (21-25); ABG Oxygen Saturation 97.3 % (94-97); ABG PCO2 65 mmHg (35-45); ABG PH 7.33 (7.35-7.45); ABG PO2 91 mmHg (83-108); ABG TCO2 36 mmol/L (19-24)
[2022-04-06 05:46] LABS: Allen Test Performed? No
--- NOTE | 2022-04-06 06:22 | P.PN ---
Subjective Progress Note Date: 04/06/22 Principal diagnosis: Respiratory failure. Reevaluated today on 04/03/22, patient remains in the ICU intubated and mechanically ventilated. He is now on assist control rate of 20 to volume 450 FiO2 35% and PEEP of 5. Peak airway pressure is 35. His ABG showed a pO2 of 106 pCO2 56 pH of 7.34. Patient remains on 35% FiO2. Patient is off norepinephrine he remains on normal saline at 50 mL an hour and on propofol at 50 mcg/kg/m. Patient is receiving vital Hp at 50 mL/h the goal is 50. On physical examination continues to have rhonchi and wheezes bilaterally chest x- rays showing slight improvement in his bilateral infiltrates. Left hilar mass remains the same. Hence I have no plans to wean the patient today, and the family has made a decision that the patient does not wean in the next few days, they would like him to proceed with tracheostomy and PEG tube placement and eventual placement. We will decide this early next week in the meantime patient is not related to believe that extubated. CBC is relatively unremarkable WBC 7.3 hemoglobin is 8.8, basic metabolic profile is relatively normal, BUN is 67 creatinine is 1.36 hence we will increase his IV fluid to 75 mL Reevaluated today on 04/04/22, patient remains in the ICU, intubated and mechanically ventilated. Not much of a filter changer the last 24 hours, patient remains on assist control rate of 20 to volume 450 FiO2 35% and PEEP of 5. ABG showed a pO2 of 69 pCO2 of 67 pH of 7.29. Hence we'll increase his rate to 24. Patient remains on propofol at 50 mcg/kg/m, IV fluid 0.9 normal saline at 75 mL per hour. He is receiving vital HP at 50 mL per hour/cor. His sputum is coming back positive for Serratia and Haemophilus influenza both are covered with Zosyn. Patient has been on Zosyn all along. Patient is sedated however I will try to awaken the patient today, and assess mental status. On physical examination he continues to have tightness and wheezing and I don't believe the patient is ready to have any weaning trials again. Today I even discussed the situation all over with the family about possible tracheostomy PEG tube placement PICC line placement and eventual placement and a ventilator facility. I also discussed the option of comfort care measures. Family seems to be inclin ed to proceed with tracheostomy and PEG tube placement as well as PICC line placement and eventual transfer to a ventilator facility/selective care specialty. Prognosis is obviously very poor, and the family is very well aware that the patient has poor prognosis with severe end-stage COPD and bronchogenic carcinoma. WBC count is 8.8 hemoglobin is 9.7, basic metabolic profile is normal BUN is 60 creatinine 0.68. For some reason a CT angio the chest was ordered yesterday, no evidence of pulmonary embolism clinically I never thought that the patient had pulmonary embolism and the clinical presentation is not a presentation of pulmonary embolism. Progress note dated 04/05/2022. 71-year-old male admitted to the hospital on March 31, with respiratory failure. He was intubated on the same day. He remains on mechanical ventilator. I spoke to his and daughter today. They will agree to tracheostomy and PEG tube placement. This was apparently discussed by my partner with the family yesterday, who knows the patient well, and who has been taking care of this patient for over 20 years. Currently, he remains on the volume assist control, rate 20, tidal volume 450, FiO2 35%, and PEEP of 5. Arterial blood gases show pO2 of 69, pCO2 of 69, and pH is 7.28. The patient remains on propofol at 35 mcg/m, saline at 75 mL an hour, and vital high protein at 50 mL an hour, with a goal of 50 mL an hour. Norepinephrine has been weaned off and the patient remains on Zosyn. White count 11.8, hemoglobin 9.9, hematocrit 33, platelet count 439,000. Sodium 146, potassium 4.9, chlorides 108, CO2 32, BUN 52, creatinine 0.64. Sputum samples from April 01 positive for Serratia, and Haemophilus. Chest x-ray is essentially unchanged. Progress note dated 04/06/2022 71-year-old male admitted to the hospital on March 31, with respiratory failure. He was intubated on the same day. He remains on mechanical ventilator. The patient is to have a tracheostomy tube and PEG tube placed today. He is currently on volume assist control, rate 20, tidal volume 450, FiO2 40%, and PEEP of 5. Blood gases show pO2 of 91, pCO2 of 65, and pH is 7.33. The patient is currently on propofol at 40 mcg/kg/m, and saline at 75 mL an hour. Tube feedings on hold in anticipation of the surgical procedure today. White count 11.4, hemoglobin 9.4, hematocrit 31.6, and platelet count 460,000. Sodium 148, potassium 4.6, chlorides 109, CO2 30, anion gap 7, BUN 47, and creatinine 0.71. Chest x-ray shows some diffuse bilateral infiltrates, and is essentially unchanged. Objective - Vital Signs Vital signs: Vital Signs Temp 96.4 F L 04/06/22 06:00 Pulse 92 04/06/22 06:00 Resp 20 04/06/22 06:00 BP 141/86 04/06/22 06:00 Pulse Ox 86 L 04/06/22 05:00 FiO2 40 04/06/22 04:00 Intake & Output 04/05/22 04/05/22 04/06/22 06:59 18:59 06:59 Intake Total 2441.207 9139.474 1521 Output Total 710 615 565 Balance 977.668 868.474 956 Weight 75 kg 75 kg 76.8 kg Intake: IV 936 1033 1061 Piperacillin-Tazobactam 3 175 125 .375 gm In Sodium Chloride 0.9% 100 ml @ 25 mls/hr IVPB Q8HR [facility] Rx# :[id number] Sodium Chloride 0.9% 1, 900 825 900 000 ml @ 75 mls/hr IV . [id number] [facility] Rx#:[id number] pressure bag 36 33 36 Intake, IV Titration 111.668 90.474 Amount propofoL 1,000 mg In 111.668 90.474 Empty Bag 1 bag @ 5 MCG/ KG/MIN 2.041 mls/hr IV . Q24H [facility] Rx#:[id number] Tube Feeding 580 300 400 Other 60 60 60 Output: Urine 710 615 565 Other: Voiding Method Indwelling Catheter Indwelling Catheter Indwelling Catheter ABP, PAP, CO, CI - Last Documented Arterial Blood Pressure 87/51 - Exam No acute distress, currently on propofol, with an orally placed endotracheal tube. HEENT examination is grossly unremarkable. Neck supple. Full range of motion. No adenopathy thyromegaly or neck vein distention. Cardiovascular examination reveals regular rhythm rate. S1-S2 normal. No S3 or S4. No discernible murmur noted. Heart sounds are distant. Heart rate 92 bpm. Lungs reveal scattered bilateral rhonchi. Breath sounds equal bilaterally wheezes. No crackles. Saturations 95 %. Abdomen soft bowel sounds are heard. No masses or tenderness. Extremities are intact. No cyanosis clubbing or edema. Skin is without rash or lesion. Neurologic examination cannot be properly assessed. - Labs CBC & Chem 7: 04/06/22 03:45 04/06/22 03:45 Labs: Abnormal Lab Results - Last 24 Hours (Table) 04/05/22 04/05/22 04/05/22 Range/Units 06:19 08:12 11:31 WBC (3.8-10.6) k/uL RBC (4.30-5.90) m/uL Hgb (13.0-17.5) gm/dL Hct (39.0-53.0) % MCV (80.0-100.0) fL MCHC (31.0-37.0) g/dL RDW (11.5-15.5) % Macrocytosis ABG pH (7.35-7.45) ABG pCO2 (35-45) mmHg ABG HCO3 (21-25) mmol/L ABG Total CO2 (19-24) mmol/L ABG O2 Saturation (94-97) % Sodium (137-145) mmol/L Chloride (98-107) mmol/L Carbon Dioxide (22-30) mmol/L BUN (9-20) mg/dL Glucose (74-99) mg/dL POC Glucose (mg/dL) 220 H 238 H 185 H (70-110) mg/dL Total Bilirubin (0.2-1.3) mg/dL Alkaline Phosphatase (38-126) U/L Total Protein (6.3-8.2) g/dL Albumin (3.5-5.0) g/dL 04/05/22 04/05/22 04/05/22 Range/Units 16:26 21:43 23:42 WBC (3.8-10.6) k/uL RBC (4.30-5.90) m/uL Hgb (13.0-17.5) gm/dL Hct (39.0-53.0) % MCV (80.0-100.0) fL MCHC (31.0-37.0) g/dL RDW (11.5-15.5) % Macrocytosis ABG pH (7.35-7.45) ABG pCO2 (35-45) mmHg ABG HCO3 (21-25) mmol/L ABG Total CO2 (19-24) mmol/L ABG O2 Saturation (94-97) % Sodium (137-145) mmol/L Chloride (98-107) mmol/L Carbon Dioxide (22-30) mmol/L BUN (9-20) mg/dL Glucose (74-99) mg/dL POC Glucose (mg/dL) 167 H 188 H 173 H (70-110) mg/dL Total Bilirubin (0.2-1.3) mg/dL Alkaline Phosphatase (38-126) U/L Total Protein (6.3-8.2) g/dL Albumin (3.5-5.0) g/dL 04/06/22 04/06/22 04/06/22 Range/Units 03:45 03:45 05:27 WBC 11.4 H (3.8-10.6) k/uL RBC 3.08 L (4.30-5.90) m/uL Hgb 9.4 L (13.0-17.5) gm/dL Hct 31.6 L (39.0-53.0) % MCV 102.7 H (80.0-100.0) fL MCHC 29.6 L (31.0-37.0) g/dL RDW 21.3 H (11.5-15.5) % Macrocytosis Marked A ABG pH 7.33 L (7.35-7.45) ABG pCO2 65 H (35-45) mmHg ABG HCO3 34 H (21-25) mmol/L ABG Total CO2 36 H (19-24) mmol/L ABG O2 Saturation 97.3 H (94-97) % Sodium 148 H (137-145) mmol/L Chloride 109 H (98-107) mmol/L Carbon Dioxide 32 H (22-30) mmol/L BUN 47 H (9-20) mg/dL Glucose 144 H (74-99) mg/dL POC Glucose (mg/dL) (70-110) mg/dL Total Bilirubin <0.1 L (0.2-1.3) mg/dL Alkaline Phosphatase 146 H (38-126) U/L Total Protein 5.1 L (6.3-8.2) g/dL Albumin 2.5 L (3.5-5.0) g/dL Microbiology - Last 24 Hours (Table) 04/01/22 11:54 Blood Culture - Preliminary Blood No Growth after 96 hours 04/01/22 09:09 Blood Culture - Preliminary Blood No Growth after 96 hours Assessment and Plan Assessment: Acute on chronic hypoxemic and hypercapnic respiratory failure, status post intubation and mechanical ventilation on 03/31/2022. Patient to have a tracheostomy and PEG tube placed on April 06. Bilateral pneumonia, secondary to Serratia and Haemophilus. Acute exacerbation of COPD. History of squamous cell lung cancer, diagnosed December 2021. Previous history of respiratory failure, requiring intubation, and subsequent tr acheostomy. Generalized anxiety disorder. Severe/stage III/stage IV COPD, with an FEV1 that's 35%. Degenerative joint disease. Acute kidney injury. Plan: Plan dated 04/05/2022. The patient will proceed with a tracheostomy and PEG tube, as per the wishes of the and daughter. The patient on IV Zosyn, and other breathing treatments. The patient also remains on GI and DVT prophylaxis. No additional recommendations are made. I did mention to the , that the patient may end up at long-term acute care facility or specialized nursing facility. Prognosis is extremely poor. We'll continue with tube feeds. Norepinephrine has been weaned off. Labs, x-rays, medications are all reviewed. Plan dated 04/06/2022. I had a long conversation with the patient's yesterday about PEG tube placement and tracheostomy tube. She is in agreement. She understands that he has a very poor prognosis given his diagnosis of COPD and lung cancer. Nonetheless, she does want to proceed with the PEG tube and the tracheostomy tube. Labs, x-rays, and medications are reviewed. Prognosis is poor. I did mention to her that he would likely end up at long-term acute care facility or specialized nursing facility after discharge from this institution. The patient remains on Zosyn. His saline IV is changed to D5 W because of hypernatremia. Time with Patient: Greater than 30
[2022-04-06] MEDS ORDERED: LACTATED RINGERS 1,000 ML IV SCH (06:30)
--- NOTE | 2022-04-06 06:40 | P.PN ---
Subjective Progress Note Date: 04/06/22 Principal diagnosis: Severe cardiomyopathy, nonischemic This is a 71-year-old gentleman with a past medical history significant for advanced COPD and chronic hypoxic respiratory failure as well as non-small cell lung cancer as well as multiple comorbid conditions was admitted to the hospital with acute hypoxic respiratory failure requiring intubation and mechanical ventilation. We involved in the care of the patient because of abnormal cardiac enzymes. The patient is known to have normal coronary angiogram based on heart catheterization in 2019. He underwent further investigation including an echocardiogram which revealed severe cardiomyopathy with EF around 30% we felt to be nonischemic could be stress-induced cardiomyopathy or chemotherapy related cardiomyopathy giving that the patient heart catheterization was present in 2019 did not show any evidence of obstructive coronary artery disease. The patient was seen this morning. He continues to be intubated on mechanical ventilation. He is not on any vasopressors so far for the last 48 hours. He is on maximize medical treatment including aspirin as well as a statin as well as beta reyna and yesterday I did add small dose of TRISTA inhibitor was lisinopril in the light of cardiomyopathy. From the cardiovascular standpoint overview, the patient seems to be stable. We'll continue the current medical regimen. Objective - Vital Signs Vital signs: Vital Signs Temp 96.4 F L 04/06/22 06:00 Pulse 92 04/06/22 06:00 Resp 20 04/06/22 06:00 BP 141/86 04/06/22 06:00 Pulse Ox 86 L 04/06/22 05:00 FiO2 40 04/06/22 04:00 Intake & Output 04/05/22 04/05/22 04/06/22 06:59 18:59 06:59 Intake Total 4710.219 7271.474 1521 Output Total 710 615 565 Balance 977.668 868.474 956 Weight 75 kg 75 kg 76.8 kg Intake: IV 936 1033 1061 Piperacillin-Tazobactam 3 175 125 .375 gm In Sodium Chloride 0.9% 100 ml @ 25 mls/hr IVPB Q8HR [facility] Rx# :[id number] Sodium Chloride 0.9% 1, 900 825 900 000 ml @ 75 mls/hr IV . [id number] [facility] Rx#:[id number] pressure bag 36 33 36 Intake, IV Titration 111.668 90.474 Amount propofoL 1,000 mg In 111.668 90.474 Empty Bag 1 bag @ 5 MCG/ KG/MIN 2.041 mls/hr IV . Q24H [facility] Rx#:[id number] Tube Feeding 580 300 400 Other 60 60 60 Output: Urine 710 615 565 Other: Voiding Method Indwelling Catheter Indwelling Catheter Indwelling Catheter ABP, PAP, CO, CI - Last Documented Arterial Blood Pressure 87/51 - Constitutional General appearance: Present: no acute distress - Respiratory Respiratory: bilateral: diminished - Cardiovascular Rhythm: regular Heart sounds: normal: S1, S2 - Labs CBC & Chem 7: 04/06/22 03:45 04/06/22 03:45 Labs: Abnormal Lab Results - Last 24 Hours (Table) 04/05/22 04/05/22 04/05/22 Range/Units 08:12 11:31 16:26 WBC (3.8-10.6) k/uL RBC (4.30-5.90) m/uL Hgb (13.0-17.5) gm/dL Hct (39.0-53.0) % MCV (80.0-100.0) fL MCHC (31.0-37.0) g/dL RDW (11.5-15.5) % Macrocytosis ABG pH (7.35-7.45) ABG pCO2 (35-45) mmHg ABG HCO3 (21-25) mmol/L ABG Total CO2 (19-24) mmol/L ABG O2 Saturation (94-97) % Sodium (137-145) mmol/L Chloride (98-107) mmol/L Carbon Dioxide (22-30) mmol/L BUN (9-20) mg/dL Glucose (74-99) mg/dL POC Glucose (mg/dL) 238 H 185 H 167 H (70-110) mg/dL Total Bilirubin (0.2-1.3) mg/dL Alkaline Phosphatase (38-126) U/L Total Protein (6.3-8.2) g/dL Albumin (3.5-5.0) g/dL 04/05/22 04/05/22 04/06/22 Range/Units 21:43 23:42 03:45 WBC 11.4 H (3.8-10.6) k/uL RBC 3.08 L (4.30-5.90) m/uL Hgb 9.4 L (13.0-17.5) gm/dL Hct 31.6 L (39.0-53.0) % MCV 102.7 H (80.0-100.0) fL MCHC 29.6 L (31.0-37.0) g/dL RDW 21.3 H (11.5-15.5) % Macrocytosis Marked A ABG pH (7.35-7.45) ABG pCO2 (35-45) mmHg ABG HCO3 (21-25) mmol/L ABG Total CO2 (19-24) mmol/L ABG O2 Saturation (94-97) % Sodium (137-145) mmol/L Chloride (98-107) mmol/L Carbon Dioxide (22-30) mmol/L BUN (9-20) mg/dL Glucose (74-99) mg/dL POC Glucose (mg/dL) 188 H 173 H (70-110) mg/dL Total Bilirubin (0.2-1.3) mg/dL Alkaline Phosphatase (38-126) U/L Total Protein (6.3-8.2) g/dL Albumin (3.5-5.0) g/dL 04/06/22 04/06/22 Range/Units 03:45 05:27 WBC (3.8-10.6) k/uL RBC (4.30-5.90) m/uL Hgb (13.0-17.5) gm/dL Hct (39.0-53.0) % MCV (80.0-100.0) fL MCHC (31.0-37.0) g/dL RDW (11.5-15.5) % Macrocytosis ABG pH 7.33 L (7.35-7.45) ABG pCO2 65 H (35-45) mmHg ABG HCO3 34 H (21-25) mmol/L ABG Total CO2 36 H (19-24) mmol/L ABG O2 Saturation 97.3 H (94-97) % Sodium 148 H (137-145) mmol/L Chloride 109 H (98-107) mmol/L Carbon Dioxide 32 H (22-30) mmol/L BUN 47 H (9-20) mg/dL Glucose 144 H (74-99) mg/dL POC Glucose (mg/dL) (70-110) mg/dL Total Bilirubin <0.1 L (0.2-1.3) mg/dL Alkaline Phosphatase 146 H (38-126) U/L Total Protein 5.1 L (6.3-8.2) g/dL Albumin 2.5 L (3.5-5.0) g/dL Microbiology - Last 24 Hours (Table) 04/01/22 11:54 Blood Culture - Preliminary Blood No Growth after 96 hours 04/01/22 09:09 Blood Culture - Preliminary Blood No Growth after 96 hours Assessment and Plan Assessment: Assessment #1 acute on chronic hypoxic respiratory failure #2 evidence of myocardial injury was no evidence of ischemia #3 severe cardiomyopathy, nonischemic #4 multiple comorbid conditions Plan #1 continue the current medical regimen including aspirin and statin and beta reyna #2 currently the patient is on maximize medical treatment for cardiomyopathy #3 no need for any further cardiac invasive investigation #4 follow-up with the patient
[2022-04-06] MEDS: DEXTROSE 5% IN WATER 1,000 ML IV SCH ×2 (07:04→18:00)
[2022-04-06] MEDS: FORMOTEROL FUMARATE 20 MCG/2 ML NEBU INHALATION SCH ×2 (07:12→19:31)
[2022-04-06] MEDS: IPRATROPIUM-ALBUTEROL 3 ML NEB INHALATION SCH ×4 (07:12→19:21)
[2022-04-06] MEDS: BUDESONIDE 1 MG/2 ML NEBU INHALATION SCH ×2 (07:12→19:21)
--- NOTE | 2022-04-06 07:50 | XR ---
EXAMINATION TYPE: XR chest 1V portable DATE OF EXAM: 04/06/2022 COMPARISON: [facility] chest x-ray 04/05/2022, CT chest 04/03/2022 HISTORY: Intubated Single frontal view of the chest submitted FINDINGS: Endotracheal tube and NG tube are overlying appropriate positions. There are overlying card iac leads. Lung apices not entirely included on exam. Prominent lung volumes suggest underlying COPD. Patchy densities are present in the bilateral lungs. There is prominence of the soft tissue in the l eft hilar region as noted on previous exams. The heart is small. Aorta is dense. No evident pneumotho rax or pleural effusion. IMPRESSION: Left hilar mass. Correlate for pneumonia. There is underlying emphysema.
--- NOTE | 2022-04-06 08:22 | P.PN ---
Subjective Principal diagnosis: Respiratory failure This is 71 white male with known history of COPD who is not intubated but slowly weaning. The patient is on FiO2 35%. Still requiring pressors. Tracheostomy is scheduled. Left hilar mass is noted on x-ray. Patchy infiltrate is otherwise noted. Objective - Vital Signs Vital signs: Vital Signs Temp 96.4 F L 04/06/22 06:00 Pulse 86 04/06/22 07:50 Resp 23 04/06/22 07:00 BP 104/64 04/06/22 07:00 Pulse Ox 95 04/06/22 07:00 FiO2 40 04/06/22 07:11 Intake & Output 04/05/22 04/06/22 04/06/22 18:59 06:59 18:59 Intake Total 4709.185 8563 78 Output Total 615 565 35 Balance 868.474 956 43 Weight 75 kg 76.8 kg Intake: IV 1033 1061 78 Piperacillin-Tazobactam 3 175 125 .375 gm In Sodium Chloride 0.9% 100 ml @ 25 mls/hr IVPB Q8HR [facility] Rx# :[id number] Sodium Chloride 0.9% 1, 825 900 75 000 ml @ 75 mls/hr IV . [id number] [facility] Rx#:[id number] pressure bag 33 36 3 Intake, IV Titration 90.474 Amount propofoL 1,000 mg In 90.474 Empty Bag 1 bag @ 5 MCG/ KG/MIN 2.041 mls/hr IV . Q24H [facility] Rx#:[id number] Tube Feeding 300 400 Other 60 60 Output: Urine 615 565 35 Other: Voiding Method Indwelling Catheter Indwelling Catheter ABP, PAP, CO, CI - Last Documented Arterial Blood Pressure 102/55 - Constitutional General appearance: Present: average body habitus - EENT Eyes: Absent: abnormal pupil - Neck Neck: Absent: lymphadenopathy - Respiratory Respiratory: bilateral: diminished - Cardiovascular Rhythm: regular Heart sounds: normal: S1, S2 Abnormal Heart Sounds: Absent: S3 Gallop - Gastrointestinal General gastrointestinal: Present: soft. Absent: tenderness - Labs CBC & Chem 7: 04/06/22 03:45 04/06/22 03:45 Labs: Abnormal Lab Results - Last 24 Hours (Table) 04/05/22 04/05/22 04/05/22 Range/Units 11:31 16:26 21:43 WBC (3.8-10.6) k/uL RBC (4.30-5.90) m/uL Hgb (13.0-17.5) gm/dL Hct (39.0-53.0) % MCV (80.0-100.0) fL MCHC (31.0-37.0) g/dL RDW (11.5-15.5) % Macrocytosis ABG pH (7.35-7.45) ABG pCO2 (35-45) mmHg ABG HCO3 (21-25) mmol/L ABG Total CO2 (19-24) mmol/L ABG O2 Saturation (94-97) % Sodium (137-145) mmol/L Chloride (98-107) mmol/L Carbon Dioxide (22-30) mmol/L BUN (9-20) mg/dL Glucose (74-99) mg/dL POC Glucose (mg/dL) 185 H 167 H 188 H (70-110) mg/dL Total Bilirubin (0.2-1.3) mg/dL Alkaline Phosphatase (38-126) U/L Total Protein (6.3-8.2) g/dL Albumin (3.5-5.0) g/dL 04/05/22 04/06/22 04/06/22 Range/Units 23:42 03:45 03:45 WBC 11.4 H (3.8-10.6) k/uL RBC 3.08 L (4.30-5.90) m/uL Hgb 9.4 L (13.0-17.5) gm/dL Hct 31.6 L (39.0-53.0) % MCV 102.7 H (80.0-100.0) fL MCHC 29.6 L (31.0-37.0) g/dL RDW 21.3 H (11.5-15.5) % Macrocytosis Marked A ABG pH (7.35-7.45) ABG pCO2 (35-45) mmHg ABG HCO3 (21-25) mmol/L ABG Total CO2 (19-24) mmol/L ABG O2 Saturation (94-97) % Sodium 148 H (137-145) mmol/L Chloride 109 H (98-107) mmol/L Carbon Dioxide 32 H (22-30) mmol/L BUN 47 H (9-20) mg/dL Glucose 144 H (74-99) mg/dL POC Glucose (mg/dL) 173 H (70-110) mg/dL Total Bilirubin <0.1 L (0.2-1.3) mg/dL Alkaline Phosphatase 146 H (38-126) U/L Total Protein 5.1 L (6.3-8.2) g/dL Albumin 2.5 L (3.5-5.0) g/dL 04/06/22 Range/Units 05:27 WBC (3.8-10.6) k/uL RBC (4.30-5.90) m/uL Hgb (13.0-17.5) gm/dL Hct (39.0-53.0) % MCV (80.0-100.0) fL MCHC (31.0-37.0) g/dL RDW (11.5-15.5) % Macrocytosis ABG pH 7.33 L (7.35-7.45) ABG pCO2 65 H (35-45) mmHg ABG HCO3 34 H (21-25) mmol/L ABG Total CO2 36 H (19-24) mmol/L ABG O2 Saturation 97.3 H (94-97) % Sodium (137-145) mmol/L Chloride (98-107) mmol/L Carbon Dioxide (22-30) mmol/L BUN (9-20) mg/dL Glucose (74-99) mg/dL POC Glucose (mg/dL) (70-110) mg/dL Total Bilirubin (0.2-1.3) mg/dL Alkaline Phosphatase (38-126) U/L Total Protein (6.3-8.2) g/dL Albumin (3.5-5.0) g/dL Microbiology - Last 24 Hours (Table) 04/01/22 11:54 Blood Culture - Preliminary Blood No Growth after 96 hours 04/01/22 09:09 Blood Culture - Preliminary Blood No Growth after 96 hours Assessment and Plan (1) COPD (chronic obstructive pulmonary disease) Current Visit: Yes Status: Acute Code(s): J44.9 - CHRONIC OBSTRUCTIVE PULMONARY DISEASE, UNSPECIFIED SNOMED Code(s): 30825667 (2) Acute exacerbation of chronic obstructive pulmonary disease Current Visit: No Status: Acute Code(s): J44.1 - CHRONIC OBSTRUCTIVE PULMONARY DISEASE W (ACUTE) EXACERBATION SNOMED Code(s): 388326013 (3) Acute respiratory failure Current Visit: No Status: Acute Code(s): J96.00 - ACUTE RESPIRATORY FAILURE, UNSP W HYPOXIA OR HYPERCAPNIA SNOMED Code(s): 72711581 (4) Pneumonia Current Visit: No Status: Acute Code(s): J18.9 - PNEUMONIA, UNSPECIFIED ORGANISM SNOMED Code(s): 290650157 (5) Hilar mass Current Visit: Yes Status: Acute Code(s): R91.8 - OTHER NONSPECIFIC ABNORMAL FINDING OF LUNG FIELD SNOMED Code(s): 420645768 Plan: Tracheostomy is scheduled for later today. Check CBC and CMP in a.m. Prognosis is guarded.
[2022-04-06 08:38] LABS: Glucose,Whole Blood 205 mg/dL (70-110)
[2022-04-06] MEDS: PANTOPRAZOLE 40 MG/10 ML VIAL IVP SCH (08:46)
[2022-04-06] MEDS: CHLORHEXIDINE GLUCONATE 15 ML CUP MUCOUS MEM SCH ×2 (08:47→20:33)
[2022-04-06] MEDS: ASPIRIN 81 MG PO SCH (09:02)
[2022-04-06] MEDS: GABAPENTIN 300 MG CAP PO SCH ×3 (09:03→20:33)
[2022-04-06] MEDS: HEPARIN SODIUM,PORCINE/PF 5,000 UNIT/0.5 ML SYRINGE SQ SCH ×2 (09:03→20:33)
[2022-04-06] MEDS: CHOLECALCIFEROL 25 MCG (1000 IU) TABLET PO SCH (09:03)
[2022-04-06] MEDS: METOPROLOL SUCCINATE (ER) 25 MG TAB.ER.24H PO SCH (09:04)
[2022-04-06] MEDS ORDERED: NOREPINEPHRIN 4 MG-0.9% NS PMX 4 MG/250 ML ML IV ONE (10:29)
[2022-04-06] MEDS: NOREPINEPHRINE 4 MG in SODIUM CHLORIDE 0.9% 250 ML IV SCH ×2 (10:30→18:01)
[2022-04-06] MEDS ORDERED: LACTATED RINGERS 1,000 ML IV ONE (11:15)
[2022-04-06] MEDS ORDERED: PHENYLEPHRINE-0.9% NACL SYG 1,000 MCG/10 ML SYRINGE ONE (11:25)
[2022-04-06] MEDS ORDERED: ROCURONIUM 10 MG/ML (5 ML VIAL) IV ONE (11:25)
[2022-04-06] MEDS ORDERED: fentaNYL (PF) 50 MCG/ML 2 ML AMP ONE (11:25)
[2022-04-06] MEDS ORDERED: MIDAZOLAM 2 MG/2 ML VIAL ONE (11:25)
--- NOTE | 2022-04-06 12:43 | P.OP ---
Date of Procedure: 04/06/22 Preoperative Diagnosis: Respiratory failure Malnutrition Postoperative Diagnosis: Respiratory failure Malnutrition Procedure(s) Performed: Tracheostomy PEG tube Anesthesia: DONNELL Surgeon: Emigdio Lu Estimated Blood Loss (ml): 10 Pathology: none sent Condition: stable Disposition: PACU Description of Procedure: TraThe patient's placed on the bed in the supine position. The patient received general anesthesia. The neck was prepped and draped in usual sterile fashion. A standard transverse skin incision was made approximately 2 cm above the sternal notch. Using electrocautery the subcutaneous tissues were divided. The platysma was divided. A Wheatlander retractor was placed in the wound. Next the strap muscles were divided in the midline. Another weatlander retractor was placed the wound. The pretracheal fat was then divided with left cautery. The trachea was exposed. The patient had a previous tracheostomy. There was significant calcification of the trachea anteriorly. At this point the [employer]ING [employer]CHNICIAN advance the and the tracheal tube into the right mainstem bronchus. The balloon was inflated. A tracheotomy was then performed between the second and third tracheal rings. The perivascular tissues a gracilis the trachea. The endotracheal tube was brought back under direct vision. And then the # 7 Portex tracheostomy tube was placed into the trachea. End-tidal CO2 was confirmed. The patient had been connected to the ventilator. The patient was ventilated satisfactory. The skin incision site was then closed with 3-0 nylon after the retractors were withdrawn. An umbilical tie was used to secure the tracheostomy tube. Next the gastroscope placed oropharynx passed in the esophagus and stomach. There is no evidence of any outlet obstruction. Stomach was insufflated with air. The light reflux seen the anterior abdominal wall. The abdomen was prepped and draped usual fashion. The skin was incised. And the needles placed and stomach under direct visualization. The needle was snared. And the wires placed through the needle and the wire was snared and brought the oropharynx. The PEG tube was placed over top the wire brought down to the stomach. The PEG tube was secured. At the 3 cm catherine. The one-piece bolster was used. Patient tolerated procedure well.
[2022-04-06 15:54] LABS: Glucose,Whole Blood 182 mg/dL (70-110)
[2022-04-06 15:54] LABS: Glucose,Whole Blood 205 mg/dL (70-110)
[2022-04-06] MEDS: LATANOPROST 0.005% OPHTH DROPS 2.5 ML BTL BOTH EYES SCH (20:30)
[2022-04-06] MEDS: ATORVASTATIN 10 MG TAB PO SCH (20:33)
[2022-04-07 00:35] LABS: Glucose,Whole Blood 140 mg/dL (70-110)
[2022-04-07 00:35] LABS: Glucose,Whole Blood 155 mg/dL (70-110)
[2022-04-07] MEDS: PIPERACILLIN-TAZOBACTAM 3.375 GM in SODIUM CHLORIDE 0.9% 100 ML IVPB SCH ×4 (00:37→23:51)
[2022-04-07] MEDS: INSULIN ASPART (NovoLOG) 100 UNIT/ML VIAL SQ SCH ×6 (00:38→20:50)
[2022-04-07 05:07] LABS: Glucose,Whole Blood 171 mg/dL (70-110)
[2022-04-07 05:33] LABS: Anisocytosis Moderate; HCT 28.6 % (39.0-53.0); HGB 8.7 gm/dL (13.0-17.5); Hypochromasia Marked; MCH 31.1 pg (25.0-35.0); MCHC 30.3 g/dL (31.0-37.0); MCV 102.6 fL (80.0-100.0); Macrocytosis Marked; Mean Platelet Volume 7.9; Platelet Count 355 k/uL (150-450); RBC 2.78 m/uL (4.30-5.90); RDW 21.7 % (11.5-15.5); WBC 10.5 k/uL (3.8-10.6)
[2022-04-07 05:51] LABS: ALT 40 U/L (4-49); AST 23 U/L (17-59); African American GFR (CKD) >90 (>60 ml/min/1.73 sqM); Albumin 2.3 g/dL (3.5-5.0); Alkaline Phosphatase 159 U/L (38-126); Anion Gap 4 mmol/L; Blood Urea Nitrogen 32 mg/dL (9-20); Calcium 8.5 mg/dL (8.4-10.2); Carbon Dioxide 33 mmol/L (22-30); Chloride 106 mmol/L (98-107); Glucose 167 mg/dL (74-99); Non-African American GFR(CKD) >90 (>60 ml/min/1.73 sqM); Potassium 4.6 mmol/L (3.5-5.1); Sodium 143 mmol/L (137-145); Total Bilirubin <0.1 mg/dL (0.2-1.3); Total Protein 4.8 g/dL (6.3-8.2)
[2022-04-07 05:51] LABS: ABG Base Excess 7.7 mmol/L; ABG HCO3 34 mmol/L (21-25); ABG Oxygen Saturation 96.9 % (94-97); ABG PCO2 68 mmHg (35-45); ABG PH 7.31 (7.35-7.45); ABG PO2 86 mmHg (83-108); ABG TCO2 36 mmol/L (19-24)
[2022-04-07 05:53] LABS: Allen Test Performed? No
--- NOTE | 2022-04-07 07:06 | P.PN ---
Subjective Progress Note Date: 04/07/22 Principal diagnosis: Respiratory failure. Reevaluated today on 04/03/22, patient remains in the ICU intubated and mechanically ventilated. He is now on assist control rate of 20 to volume 450 FiO2 35% and PEEP of 5. Peak airway pressure is 35. His ABG showed a pO2 of 106 pCO2 56 pH of 7.34. Patient remains on 35% FiO2. Patient is off norepinephrine he remains on normal saline at 50 mL an hour and on propofol at 50 mcg/kg/m. Patient is receiving vital Hp at 50 mL/h the goal is 50. On physical examination continues to have rhonchi and wheezes bilaterally chest x- rays showing slight improvement in his bilateral infiltrates. Left hilar mass remains the same. Hence I have no plans to wean the patient today, and the family has made a decision that the patient does not wean in the next few days, they would like him to proceed with tracheostomy and PEG tube placement and eventual placement. We will decide this early next week in the meantime patient is not related to believe that extubated. CBC is relatively unremarkable WBC 7.3 hemoglobin is 8.8, basic metabolic profile is relatively normal, BUN is 67 creatinine is 1.36 hence we will increase his IV fluid to 75 mL Reevaluated today on 04/04/22, patient remains in the ICU, intubated and mechanically ventilated. Not much of a change management expert the last 24 hours, patient remains on assist control rate of 20 to volume 450 FiO2 35% and PEEP of 5. ABG showed a pO2 of 69 pCO2 of 67 pH of 7.29. Hence we'll increase his rate to 24. Patient remains on propofol at 50 mcg/kg/m, IV fluid 0.9 normal saline at 75 mL per hour. He is receiving vital HP at 50 mL per hour/cor. His sputum is coming back positive for Serratia and Haemophilus influenza both are covered with Zosyn. Patient has been on Zosyn all along. Patient is sedated however I will try to awaken the patient today, and assess mental status. On physical examination he continues to have tightness and wheezing and I don't believe the patient is ready to have any weaning trials again. Today I even discussed the situation all over with the family about possible tracheostomy PEG tube placement PICC line placement and eventual placement and a ventilator facility. I also discussed the option of comfort care measures. Family seems to be inclin ed to proceed with tracheostomy and PEG tube placement as well as PICC line placement and eventual transfer to a ventilator facility/selective care specialty. Prognosis is obviously very poor, and the family is very well aware that the patient has poor prognosis with severe end-stage COPD and bronchogenic carcinoma. WBC count is 8.8 hemoglobin is 9.7, basic metabolic profile is normal BUN is 60 creatinine 0.68. For some reason a CT angio the chest was ordered yesterday, no evidence of pulmonary embolism clinically I never thought that the patient had pulmonary embolism and the clinical presentation is not a presentation of pulmonary embolism. Progress note dated 04/05/2022. 71-year-old male admitted to the hospital on March 31, with respiratory failure. He was intubated on the same day. He remains on mechanical ventilator. I spoke to his and daughter today. They will agree to tracheostomy and PEG tube placement. This was apparently discussed by my partner with the family yesterday, who knows the patient well, and who has been taking care of this patient for over 20 years. Currently, he remains on the volume assist control, rate 20, tidal volume 450, FiO2 35%, and PEEP of 5. Arterial blood gases show pO2 of 69, pCO2 of 69, and pH is 7.28. The patient remains on propofol at 35 mcg/m, saline at 75 mL an hour, and vital high protein at 50 mL an hour, with a goal of 50 mL an hour. Norepinephrine has been weaned off and the patient remains on Zosyn. White count 11.8, hemoglobin 9.9, hematocrit 33, platelet count 439,000. Sodium 146, potassium 4.9, chlorides 108, CO2 32, BUN 52, creatinine 0.64. Sputum samples from April 01 positive for Serratia, and Haemophilus. Chest x-ray is essentially unchanged. Progress note dated 04/06/2022 71-year-old male admitted to the hospital on March 31, with respiratory failure. He was intubated on the same day. He remains on mechanical ventilator. The patient is to have a tracheostomy tube and PEG tube placed today. He is currently on volume assist control, rate 20, tidal volume 450, FiO2 40%, and PEEP of 5. Blood gases show pO2 of 91, pCO2 of 65, and pH is 7.33. The patient is currently on propofol at 40 mcg/kg/m, and saline at 75 mL an hour. Tube feedings on hold in anticipation of the surgical procedure today. White count 11.4, hemoglobin 9.4, hematocrit 31.6, and platelet count 460,000. Sodium 148, potassium 4.6, chlorides 109, CO2 30, anion gap 7, BUN 47, and creatinine 0.71. Chest x-ray shows some diffuse bilateral infiltrates, and is essentially unchanged. Progress note dated 04/07/2022. 71-year-old male admitted to the hospital on March 31, with respiratory failure. He was intubated on the same day. He remains on the mechanical ventilator. Yesterday, he had a tracheostomy tube and a PEG tube placed by surgery. The patient is on volume assist control, rate 20, tidal volume 450, FiO2 40%, and PEEP of 5. Blood gases show a PaO2 of 86, pCO2 of 68, and pH 7.31. He is somewhat dyssynchronous with the ventilator, so we will switch him to pressure regulated volume control or VC plus with a targeted tidal volume of 450, inspiratory time of 0.8 seconds. He's currently on propofol at 25 mcg/kg/m, norepinephrine at 0.07 mcg/kg/m, lactated Ringer's at 10 mL an hour, and D5W at 75 mL an hour. Tube feedings have not yet been restarted. White count 10.5, hemoglobin 8.7, hematocrit 28.6, and platelet count 355,000. Sodium 143, potassium 4.6, chloride 106, CO2 33, BUN 32, and creatinine 0.72. Albumin is 2.3. Sputum from April 01 showed both Serratia marcescens and Haemophilus influenzae. No chest x-ray she had today. Objective - Vital Signs Vital signs: Vital Signs Temp 97.9 F 04/07/22 04:00 Pulse 94 04/07/22 06:00 Resp 39 H 04/07/22 06:00 BP 132/72 04/07/22 06:00 Pulse Ox 91 L 04/07/22 06:00 FiO2 40 04/07/22 06:50 Intake & Output 04/06/22 04/06/22 04/07/22 06:59 18:59 06:59 Intake Total 1621 6093.284 6692.000 Output Total 565 565 690 Balance 1056 839.479 525.000 Weight 76.8 kg 83.5 kg Intake: IV 1061 1061 961 Dextrose 5% in Water 1, 825 900 000 ml @ 75 mls/hr IV . [id number] [facility] Rx#:[id number] Piperacillin-Tazobactam 3 125 125 25 .375 gm In Sodium Chloride 0.9% 100 ml @ 25 mls/hr IVPB Q8HR [facility] Rx# :[id number] Sodium Chloride 0.9% 1, 900 75 000 ml @ 75 mls/hr IV . [id number] [facility] Rx#:[id number] pressure bag 36 36 36 Intake, IV Titration 100 343.479 254.000 Amount Norepinephrine 4 mg In 242.134 254.000 Sodium Chloride 0.9% 250 ml @ 0.05 MCG/KG/MIN 14. 63 mls/hr IV .[id number] [facility] Rx#:[id number] propofoL 1,000 mg In 100 101.345 Empty Bag 1 bag @ 5 MCG/ KG/MIN 2.041 mls/hr IV . Q24H [facility] Rx#:[id number] Tube Feeding 400 Other 60 Output: Urine 565 560 690 Estimated Blood Loss 5 Other: Voiding Method Indwelling Catheter Indwelling Catheter Indwelling Catheter ABP, PAP, CO, CI - Last Documented Arterial Blood Pressure 151/63 - Exam No acute distress, currently on propofol, with a midline tracheostomy tube. HEENT examination is grossly unremarkable. Neck supple. Full range of motion. No adenopathy thyromegaly or neck vein distention. Cardiovascular examination reveals regular rhythm rate. S1-S2 normal. No S3 or S4. No discernible murmur noted. Heart sounds are distant. Heart rate 94 bpm. Lungs reveal scattered bilateral rhonchi. Breath sounds equal bilaterally wheezes. No crackles. Saturations 97 %. Abdomen soft bowel sounds are heard. No masses or tenderness. PEG tube noted. Extremities are intact. No cyanosis clubbing or edema. Skin is without rash or lesion. Neurologic examination cannot be properly assessed. - Labs CBC & Chem 7: 04/07/22 05:00 04/07/22 05:00 Labs: Abnormal Lab Results - Last 24 Hours (Table) 04/06/22 04/06/22 04/06/22 Range/Units 08:35 12:52 15:52 RBC (4.30-5.90) m/uL Hgb (13.0-17.5) gm/dL Hct (39.0-53.0) % MCV (80.0-100.0) fL MCHC (31.0-37.0) g/dL RDW (11.5-15.5) % Macrocytosis ABG pH (7.35-7.45) ABG pCO2 (35-45) mmHg ABG HCO3 (21-25) mmol/L ABG Total CO2 (19-24) mmol/L Carbon Dioxide (22-30) mmol/L BUN (9-20) mg/dL Glucose (74-99) mg/dL POC Glucose (mg/dL) 205 H 205 H 182 H (70-110) mg/dL Total Bilirubin (0.2-1.3) mg/dL Alkaline Phosphatase (38-126) U/L Total Protein (6.3-8.2) g/dL Albumin (3.5-5.0) g/dL 04/06/22 04/07/22 04/07/22 Range/Units 20:17 00:34 05:00 RBC 2.78 L (4.30-5.90) m/uL Hgb 8.7 L (13.0-17.5) gm/dL Hct 28.6 L (39.0-53.0) % MCV 102.6 H (80.0-100.0) fL MCHC 30.3 L (31.0-37.0) g/dL RDW 21.7 H (11.5-15.5) % Macrocytosis Marked A ABG pH (7.35-7.45) ABG pCO2 (35-45) mmHg ABG HCO3 (21-25) mmol/L ABG Total CO2 (19-24) mmol/L Carbon Dioxide (22-30) mmol/L BUN (9-20) mg/dL Glucose (74-99) mg/dL POC Glucose (mg/dL) 140 H 155 H (70-110) mg/dL Total Bilirubin (0.2-1.3) mg/dL Alkaline Phosphatase (38-126) U/L Total Protein (6.3-8.2) g/dL Albumin (3.5-5.0) g/dL 08/04/07/22 04/07/22 Range/Units 05:00 05:03 05:33 RBC (4.30-5.90) m/uL Hgb (13.0-17.5) gm/dL Hct (39.0-53.0) % MCV (80.0-100.0) fL MCHC (31.0-37.0) g/dL RDW (11.5-15.5) % Macrocytosis ABG pH 7.31 L (7.35-7.45) ABG pCO2 68 H (35-45) mmHg ABG HCO3 34 H (21-25) mmol/L ABG Total CO2 36 H (19-24) mmol/L Carbon Dioxide 33 H (22-30) mmol/L BUN 32 H (9-20) mg/dL Glucose 167 H (74-99) mg/dL POC Glucose (mg/dL) 171 H (70-110) mg/dL Total Bilirubin <0.1 L (0.2-1.3) mg/dL Alkaline Phosphatase 159 H (38-126) U/L Total Protein 4.8 L (6.3-8.2) g/dL Albumin 2.3 L (3.5-5.0) g/dL Microbiology - Last 24 Hours (Table) 04/01/22 11:54 Blood Culture - Preliminary Blood No Growth after 120 hours 04/01/22 09:09 Blood Culture - Preliminary Blood No Growth after 120 hours Assessment and Plan Assessment: Acute on chronic hypoxemic and hypercapnic respiratory failure, status post intubation and mechanical ventilation on 03/31/2022, status post tracheostomy and PEG tube placement 04/06/2022, for failure to wean from mechanical ventilation. Bilateral pneumonia and sepsis, secondary to Serratia and Haemophilus. Acute exacerbation of COPD. History of squamous cell lung cancer, diagnosed December 2021. Previous history of respiratory failure, requiring intubation, and subsequent tracheostomy. Generalized anxiety disorder. Severe/stage III/stage IV COPD, with an FEV1 that's 35%. Degenerative joint disease. Acute kidney injury. Plan: Plan dated 04/05/2022. The patient will proceed with a tracheostomy and PEG tube, as per the wishes of the and daughter. The patient on IV Zosyn, and other breathing treatments. The patient also remains on GI and DVT prophylaxis. No additional recommendations are made. I did mention to the , that the patient may end up at long-term acute care facility or specialized nursing facility. Prognosis is extremely poor. We'll continue with tube feeds. Norepinephrine has been we aned off. Labs, x-rays, medications are all reviewed. Plan dated 04/06/2022. I had a long conversation with the patient's yesterday about PEG tube placement and tracheostomy tube. She is in agreement. She understands that he has a very poor prognosis given his diagnosis of COPD and lung cancer. Nonetheless, she does want to proceed with the PEG tube and the tracheostomy tube. Labs, x-rays, and medications are reviewed. Prognosis is poor. I did mention to her that he would likely end up at long-term acute care facility or specialized nursing facility after discharge from this institution. The patient remains on Zosyn. His saline IV is changed to D5 W because of hypernatremia. Plan dated 04/07/2022. The patient's ventilation will be changed to pressure regulated volume control. We will have a targeted tidal volume of 450, and a inspiratory time of 0.8 seconds. The patient remains on propofol, and norepinephrine. Tube feedings have not yet been restarted. He continues on Zosyn for Serratia and Haemophilus influenzae. The patient had a tracheostomy tube and PEG tube placed yesterday, April 06. Labs, x-rays, and medications are reviewed. Overall prognosis remai ns very poor. I did mention to the that he will probably end up in a long- term acute care center. Time with Patient: Greater than 30
[2022-04-07] MEDS: FORMOTEROL FUMARATE 20 MCG/2 ML NEBU INHALATION SCH ×2 (07:21→20:20)
[2022-04-07] MEDS: IPRATROPIUM-ALBUTEROL 3 ML NEB INHALATION SCH ×4 (07:21→20:20)
[2022-04-07] MEDS: BUDESONIDE 1 MG/2 ML NEBU INHALATION SCH ×2 (07:22→20:20)
--- NOTE | 2022-04-07 08:11 | P.PN ---
Subjective Principal diagnosis: Respiratory failure This is 71 white male with known history of COPD who is not intubated but slowly weaning. The patient is on FiO2 35%. Still requiring pressors. Tracheostomy is present. Left hilar mass is noted on x-ray. Patchy infiltrate is otherwise noted. Objective - Vital Signs Vital signs: Vital Signs Temp 97.9 F 04/07/22 04:00 Pulse 96 04/07/22 07:49 Resp 39 H 04/07/22 06:00 BP 132/72 04/07/22 06:00 Pulse Ox 91 L 04/07/22 06:00 FiO2 40 04/07/22 06:50 Intake & Output 04/06/22 04/07/22 04/07/22 18:59 06:59 18:59 Intake Total 5090.453 4257.000 78 Output Total 565 690 40 Balance 839.479 525.000 38 Weight 83.5 kg Intake: IV 1061 961 78 Dextrose 5% in Water 1, 825 900 75 000 ml @ 75 mls/hr IV . [id number] [facility] Rx#:[id number] Piperacillin-Tazobactam 3 125 25 .375 gm In Sodium Chloride 0.9% 100 ml @ 25 mls/hr IVPB Q8HR [facility] Rx# :[id number] Sodium Chloride 0.9% 1, 75 000 ml @ 75 mls/hr IV . [id number] [facility] Rx#:[id number] pressure bag 36 36 3 Intake, IV Titration 343.479 254.000 Amount Norepinephrine 4 mg In 242.134 254.000 Sodium Chloride 0.9% 250 ml @ 0.05 MCG/KG/MIN 14. 63 mls/hr IV .[id number] [facility] Rx#:[id number] propofoL 1,000 mg In 101.345 Empty Bag 1 bag @ 5 MCG/ KG/MIN 2.041 mls/hr IV . Q24H [facility] Rx#:[id number] Output: Urine 560 690 40 Estimated Blood Loss 5 Other: Voiding Method Indwelling Catheter Indwelling Catheter ABP, PAP, CO, CI - Last Documented Arterial Blood Pressure 151/63 - Constitutional General appearance: Absent: no acute distress - EENT Eyes: Absent: abnormal pupil - Neck Neck: Absent: lymphadenopathy - Respiratory Respiratory: bilateral: wheezing - Cardiovascular Rhythm: regular Heart sounds: normal: S1, S2 Abnormal Heart Sounds: Absent: S3 Gallop - Gastrointestinal General gastrointestinal: Present: soft. Absent: tenderness - Integumentary Integumentary Comment(s): Dependent edema - Labs CBC & Chem 7: 04/07/22 05:00 04/07/22 05:00 Labs: Abnormal Lab Results - Last 24 Hours (Table) 04/06/22 04/06/22 04/06/22 Range/Units 08:35 12:52 15:52 RBC (4.30-5.90) m/uL Hgb (13.0-17.5) gm/dL Hct (39.0-53.0) % MCV (80.0-100.0) fL MCHC (31.0-37.0) g/dL RDW (11.5-15.5) % Macrocytosis ABG pH (7.35-7.45) ABG pCO2 (35-45) mmHg ABG HCO3 (21-25) mmol/L ABG Total CO2 (19-24) mmol/L Carbon Dioxide (22-30) mmol/L BUN (9-20) mg/dL Glucose (74-99) mg/dL POC Glucose (mg/dL) 205 H 205 H 182 H (70-110) mg/dL Total Bilirubin (0.2-1.3) mg/dL Alkaline Phosphatase (38-126) U/L Total Protein (6.3-8.2) g/dL Albumin (3.5-5.0) g/dL 04/06/22 04/07/22 04/07/22 Range/Units 20:17 00:34 05:00 RBC 2.78 L (4.30-5.90) m/uL Hgb 8.7 L (13.0-17.5) gm/dL Hct 28.6 L (39.0-53.0) % MCV 102.6 H (80.0-100.0) fL MCHC 30.3 L (31.0-37.0) g/dL RDW 21.7 H (11.5-15.5) % Macrocytosis Marked A ABG pH (7.35-7.45) ABG pCO2 (35-45) mmHg ABG HCO3 (21-25) mmol/L ABG Total CO2 (19-24) mmol/L Carbon Dioxide (22-30) mmol/L BUN (9-20) mg/dL Glucose (74-99) mg/dL POC Glucose (mg/dL) 140 H 155 H (70-110) mg/dL Total Bilirubin (0.2-1.3) mg/dL Alkaline Phosphatase (38-126) U/L Total Protein (6.3-8.2) g/dL Albumin (3.5-5.0) g/dL 04/07/22 04/07/22 04/07/22 Range/Units 05:00 05:03 05:33 RBC (4.30-5.90) m/uL Hgb (13.0-17.5) gm/dL Hct (39.0-53.0) % MCV (80.0-100.0) fL MCHC (31.0-37.0) g/dL RDW (11.5-15.5) % Macrocytosis ABG pH 7.31 L (7.35-7.45) ABG pCO2 68 H (35-45) mmHg ABG HCO3 34 H (21-25) mmol/L ABG Total CO2 36 H (19-24) mmol/L Carbon Dioxide 33 H (22-30) mmol/L BUN 32 H (9-20) mg/dL Glucose 167 H (74-99) mg/dL POC Glucose (mg/dL) 171 H (70-110) mg/dL Total Bilirubin <0.1 L (0.2-1.3) mg/dL Alkaline Phosphatase 159 H (38-126) U/L Total Protein 4.8 L (6.3-8.2) g/dL Albumin 2.3 L (3.5-5.0) g/dL Microbiology - Last 24 Hours (Table) 04/01/22 11:54 Blood Culture - Preliminary Blood No Growth after 120 hours 04/01/22 09:09 Blood Culture - Preliminary Blood No Growth after 120 hours Assessment and Plan (1) COPD (chronic obstructive pulmonary disease) Current Visit: Yes Status: Acute Code(s): J44.9 - CHRONIC OBSTRUCTIVE PULMONARY DISEASE, UNSPECIFIED SNOMED Code(s): 25643898 (2) Acute exacerbation of chronic obstructive pulmonary disease Current Visit: No Status: Acute Code(s): J44.1 - CHRONIC OBSTRUCTIVE PULMONARY DISEASE W (ACUTE) EXACERBATION SNOMED Code(s): 343182579 (3) Acute respiratory failure Current Visit: No Status: Acute Code(s): J96.00 - ACUTE RESPIRATORY FAILURE, UNSP W HYPOXIA OR HYPERCAPNIA SNOMED Code(s): 49200880 (4) Pneumonia Current Visit: No Status: Acute Code(s): J18.9 - PNEUMONIA, UNSPECIFIED ORGANISM SNOMED Code(s): 227300643 (5) Hilar mass Current Visit: Yes Status: Acute Code(s): R91.8 - OTHER NONSPECIFIC ABNORMAL FINDING OF LUNG FIELD SNOMED Code(s): 291577212 Plan: Tracheostomy is now present. Continue supportive care Check CBC and CMP in a.m. Prognosis is guarded.
[2022-04-07] MEDS: CHLORHEXIDINE GLUCONATE 15 ML CUP MUCOUS MEM SCH ×2 (08:39→23:49)
[2022-04-07] MEDS: PANTOPRAZOLE 40 MG/10 ML VIAL IVP SCH (08:39)
[2022-04-07] MEDS: HEPARIN SODIUM,PORCINE/PF 5,000 UNIT/0.5 ML SYRINGE SQ SCH ×2 (08:39→20:16)
[2022-04-07] MEDS: NOREPINEPHRINE 4 MG in SODIUM CHLORIDE 0.9% 250 ML IV SCH (08:41)
[2022-04-07 08:58] LABS: Glucose,Whole Blood 179 mg/dL (70-110)
[2022-04-07] MEDS: DEXTROSE 5% IN WATER 1,000 ML IV SCH ×2 (09:10→23:52)
--- NOTE | 2022-04-07 10:17 | XR ---
EXAMINATION TYPE: XR chest 1V portable DATE OF EXAM: 04/07/2022 COMPARISON: 04/06/2022 HISTORY: Shortness of breath TECHNIQUE: Single frontal view of the chest is obtained. FINDINGS: Diffuse emphysematous changes. Tracheostomy tube now seen with tip approximately 7 cm abov e artemio. Atherosclerotic change of the aorta. Left hilar mass suspected. Coarsened interstitium sugg ests chronic interstitial lung disease. No pneumothorax. Heart size normal. No sizable pleural fluid collection. No focal pneumonia. IMPRESSION: 1. Tracheostomy tube appears in good position. 2. Diffuse COPD and chronic interstitial lung disease with left perihilar mass again noted.
[2022-04-07 11:26] LABS: Glucose,Whole Blood 188 mg/dL (70-110)
[2022-04-07] MEDS: ASPIRIN 81 MG PO SCH (11:34)
[2022-04-07] MEDS: GABAPENTIN 300 MG CAP PO SCH ×3 (11:34→20:17)
[2022-04-07] MEDS: CHOLECALCIFEROL 25 MCG (1000 IU) TABLET PO SCH (11:36)
--- NOTE | 2022-04-07 11:58 | P.PN ---
Subjective Progress Note Date: 04/07/22 CHIEF COMPLAINT: Respiratory failure HISTORY OF PRESENT ILLNESS: Patient remains in the ICU. He is status post tracheostomy and PEG tube placement. Patient does have a cuff leak noted. This improved with repositioning of the cough. Also nursing staff removed mucous plug. Afebrile. RBCs 10.5 Hgb 8.7 Patient seen and examined with Dr. olivier PHYSICAL EXAM: VITAL SIGNS: Reviewed. GENERAL: Well-developed in no acute distress. HEENT: Tracheostomy site clean and dry and intact. Evidence of cuff leak ABDOMEN: Soft. Nondistended. Nontender. PEG tube site clean dry and intact NEUROLOGIC: Alert and oriented. Cranial nerves II through XII grossly intact. ASSESSMENT: 1. Severe protein calorie malnutrition 2. Acute respiratory failure requiring mechanical ventilation secondary to COPD, aspiration pneumonia and lung cancer PLAN: -Continue to monitor cuff leak -Okay to start feedings today. Titrate to feedings per dietitian recommendations -Okay to use PEG tube for medications -Nursing staff will be informing critical care service of the cuff leak -Continue ICU management and supportive care Physician Electrical Experimental Mechanic note has been reviewed by physician. Signing provider agrees with the documented findings, assessment, and plan of care. Objective - Vital Signs Vital signs: Vital Signs Temp 98.7 F 04/07/22 08:00 Pulse 96 04/07/22 11:16 Resp 40 H 04/07/22 11:00 BP 132/74 04/07/22 11:00 Pulse Ox 98 04/07/22 11:00 FiO2 40 04/07/22 10:55 Intake & Output 04/06/22 04/07/22 04/07/22 18:59 06:59 18:59 Intake Total 6180.038 9916.953 525.551 Output Total 565 690 330 Balance 839.479 597.953 195.551 Weight 83.5 kg Intake: IV 1061 961 490 Dextrose 5% in Water 1, 825 900 375 000 ml @ 75 mls/hr IV . [id number] [facility] Rx#:[id number] Piperacillin-Tazobactam 3 125 25 100 .375 gm In Sodium Chloride 0.9% 100 ml @ 25 mls/hr IVPB Q8HR [facility] Rx# :[id number] Sodium Chloride 0.9% 1, 75 000 ml @ 75 mls/hr IV . [id number] [facility] Rx#:[id number] pressure bag 36 36 15 Intake, IV Titration 343.479 326.953 35.551 Amount Norepinephrine 4 mg In 242.134 254.000 35.551 Sodium Chloride 0.9% 250 ml @ 0.05 MCG/KG/MIN 14. 63 mls/hr IV .[id number] [facility] Rx#:[id number] propofoL 1,000 mg In 101.345 72.953 Empty Bag 1 bag @ 5 MCG/ KG/MIN 2.041 mls/hr IV . Q24H [facility] Rx#:[id number] Output: Urine 560 690 330 Estimated Blood Loss 5 Other: Voiding Method Indwelling Catheter Indwelling Catheter Indwelling Catheter ABP, PAP, CO, CI - Last Documented Arterial Blood Pressure 157/60 - Labs CBC & Chem 7: 04/07/22 05:00 04/07/22 05:00 Labs: Abnormal Lab Results - Last 24 Hours (Table) 04/06/22 04/06/22 04/06/22 Range/Units 12:52 15:52 20:17 RBC (4.30-5.90) m/uL Hgb (13.0-17.5) gm/dL Hct (39.0-53.0) % MCV (80.0-100.0) fL MCHC (31.0-37.0) g/dL RDW (11.5-15.5) % Macrocytosis ABG pH (7.35-7.45) ABG pCO2 (35-45) mmHg ABG HCO3 (21-25) mmol/L ABG Total CO2 (19-24) mmol/L Carbon Dioxide (22-30) mmol/L BUN (9-20) mg/dL Glucose (74-99) mg/dL POC Glucose (mg/dL) 205 H 182 H 140 H (70-110) mg/dL Total Bilirubin (0.2-1.3) mg/dL Alkaline Phosphatase (38-126) U/L Total Protein (6.3-8.2) g/dL Albumin (3.5-5.0) g/dL 04/07/22 04/07/22 04/07/22 Range/Units 00:34 05:00 05:00 RBC 2.78 L (4.30-5.90) m/uL Hgb 8.7 L (13.0-17.5) gm/dL Hct 28.6 L (39.0-53.0) % MCV 102.6 H (80.0-100.0) fL MCHC 30.3 L (31.0-37.0) g/dL RDW 21.7 H (11.5-15.5) % Macrocytosis Marked A ABG pH (7.35-7.45) ABG pCO2 (35-45) mmHg ABG HCO3 (21-25) mmol/L ABG Total CO2 (19-24) mmol/L Carbon Dioxide 33 H (22-30) mmol/L BUN 32 H (9-20) mg/dL Glucose 167 H (74-99) mg/dL POC Glucose (mg/dL) 155 H (70-110) mg/dL Total Bilirubin <0.1 L (0.2-1.3) mg/dL Alkaline Phosphatase 159 H (38-126) U/L Total Protein 4.8 L (6.3-8.2) g/dL Albumin 2.3 L (3.5-5.0) g/dL 04/07/22 04/07/22 04/07/22 Range/Units 05:03 05:33 08:56 RBC (4.30-5.90) m/uL Hgb (13.0-17.5) gm/dL Hct (39.0-53.0) % MCV (80.0-100.0) fL MCHC (31.0-37.0) g/dL RDW (11.5-15.5) % Macrocytosis ABG pH 7.31 L (7.35-7.45) ABG pCO2 68 H (35-45) mmHg ABG HCO3 34 H (21-25) mmol/L ABG Total CO2 36 H (19-24) mmol/L Carbon Dioxide (22-30) mmol/L BUN (9-20) mg/dL Glucose (74-99) mg/dL POC Glucose (mg/dL) 171 H 179 H (70-110) mg/dL Total Bilirubin (0.2-1.3) mg/dL Alkaline Phosphatase (38-126) U/L Total Protein (6.3-8.2) g/dL Albumin (3.5-5.0) g/dL 04/07/22 Range/Units 11:25 RBC (4.30-5.90) m/uL Hgb (13.0-17.5) gm/dL Hct (39.0-53.0) % MCV (80.0-100.0) fL MCHC (31.0-37.0) g/dL RDW (11.5-15.5) % Macrocytosis ABG pH (7.35-7.45) ABG pCO2 (35-45) mmHg ABG HCO3 (21-25) mmol/L ABG Total CO2 (19-24) mmol/L Carbon Dioxide (22-30) mmol/L BUN (9-20) mg/dL Glucose (74-99) mg/dL POC Glucose (mg/dL) 188 H (70-110) mg/dL Total Bilirubin (0.2-1.3) mg/dL Alkaline Phosphatase (38-126) U/L Total Protein (6.3-8.2) g/dL Albumin (3.5-5.0) g/dL Microbiology - Last 24 Hours (Table) 04/01/22 09:09 Blood Culture - Final Blood No Growth after 144 hours 04/01/22 11:54 Blood Culture - Preliminary Blood No Growth after 120 hours
[2022-04-07 16:17] LABS: Glucose,Whole Blood 205 mg/dL (70-110)
[2022-04-07] MEDS: ATORVASTATIN 10 MG TAB PO SCH (20:17)
[2022-04-07 20:40] LABS: Glucose,Whole Blood 226 mg/dL (70-110)
[2022-04-07] MEDS: LATANOPROST 0.005% OPHTH DROPS 2.5 ML BTL BOTH EYES SCH (23:50)
[2022-04-08 00:03] LABS: Glucose,Whole Blood 193 mg/dL (70-110)
[2022-04-08] MEDS: INSULIN ASPART (NovoLOG) 100 UNIT/ML VIAL SQ SCH ×6 (00:13→17:49)
[2022-04-08 04:32] LABS: Glucose,Whole Blood 180 mg/dL (70-110)
[2022-04-08 04:49] LABS: Anisocytosis Moderate; HCT 27.5 % (39.0-53.0); HGB 8.2 gm/dL (13.0-17.5); Hypochromasia Marked; MCH 30.3 pg (25.0-35.0); MCHC 29.8 g/dL (31.0-37.0); MCV 101.6 fL (80.0-100.0); Macrocytosis Marked; Mean Platelet Volume 8.2; Platelet Count 319 k/uL (150-450); RBC 2.71 m/uL (4.30-5.90); RDW 21.2 % (11.5-15.5); WBC 8.5 k/uL (3.8-10.6)
[2022-04-08 05:10] LABS: ALT 36 U/L (4-49); AST 26 U/L (17-59); African American GFR (CKD) >90 (>60 ml/min/1.73 sqM); Albumin 2.2 g/dL (3.5-5.0); Alkaline Phosphatase 142 U/L (38-126); Anion Gap 5 mmol/L; Blood Urea Nitrogen 31 mg/dL (9-20); Calcium 8.7 mg/dL (8.4-10.2); Carbon Dioxide 33 mmol/L (22-30); Chloride 101 mmol/L (98-107); Glucose 170 mg/dL (74-99); Non-African American GFR(CKD) >90 (>60 ml/min/1.73 sqM); Potassium 4.6 mmol/L (3.5-5.1); Sodium 139 mmol/L (137-145); Total Bilirubin <0.1 mg/dL (0.2-1.3); Total Protein 4.6 g/dL (6.3-8.2)
[2022-04-08 06:46] LABS: ABG Base Excess 9.6 mmol/L; ABG HCO3 35 mmol/L (21-25); ABG Oxygen Saturation 97.7 % (94-97); ABG PCO2 61 mmHg (35-45); ABG PH 7.37 (7.35-7.45); ABG PO2 88 mmHg (83-108); ABG TCO2 37 mmol/L (19-24)
[2022-04-08 06:47] LABS: Allen Test Performed? No
[2022-04-08] MEDS: IPRATROPIUM-ALBUTEROL 3 ML NEB INHALATION SCH ×4 (07:49→19:22)
[2022-04-08] MEDS: BUDESONIDE 1 MG/2 ML NEBU INHALATION SCH ×2 (07:50→19:22)
[2022-04-08] MEDS: FORMOTEROL FUMARATE 20 MCG/2 ML NEBU INHALATION SCH ×2 (07:50→19:22)
[2022-04-08] MEDS ORDERED: FUROSEMIDE 10 MG/ML 4 ML VIAL IV STA (08:39)
[2022-04-08 09:28] LABS: Glucose,Whole Blood 178 mg/dL (70-110)
[2022-04-08] MEDS: HYDROmorphone 1 MG/ML 1 ML SYRINGE IVP SCH ×6 (09:36→19:40)
[2022-04-08] MEDS: HEPARIN SODIUM,PORCINE/PF 5,000 UNIT/0.5 ML SYRINGE SQ SCH ×2 (09:37→21:34)
[2022-04-08] MEDS: CHLORHEXIDINE GLUCONATE 15 ML CUP MUCOUS MEM SCH ×2 (09:38→21:34)
[2022-04-08] MEDS: GABAPENTIN 300 MG CAP PO SCH ×3 (09:38→21:32)
[2022-04-08] MEDS: CHOLECALCIFEROL 25 MCG (1000 IU) TABLET PO SCH (09:38)
[2022-04-08] MEDS: PANTOPRAZOLE 40 MG/10 ML VIAL IVP SCH (09:38)
[2022-04-08] MEDS: ASPIRIN 81 MG PO SCH (09:38)
[2022-04-08] MEDS: QUEtiapine 50 MG TAB PO SCH ×3 (09:39→21:33)
[2022-04-08] MEDS: PIPERACILLIN-TAZOBACTAM 3.375 GM in SODIUM CHLORIDE 0.9% 100 ML IVPB SCH (09:39)
--- NOTE | 2022-04-08 10:55 | P.PN ---
Subjective Progress Note Date: 04/08/22 Principal diagnosis: Respiratory failure. Reevaluated today on 04/03/22, patient remains in the ICU intubated and mechanically ventilated. He is now on assist control rate of 20 to volume 450 FiO2 35% and PEEP of 5. Peak airway pressure is 35. His ABG showed a pO2 of 106 pCO2 56 pH of 7.34. Patient remains on 35% FiO2. Patient is off norepinephrine he remains on normal saline at 50 mL an hour and on propofol at 50 mcg/kg/m. Patient is receiving vital Hp at 50 mL/h the goal is 50. On physical examination continues to have rhonchi and wheezes bilaterally chest x- rays showing slight improvement in his bilateral infiltrates. Left hilar mass remains the same. Hence I have no plans to wean the patient today, and the family has made a decision that the patient does not wean in the next few days, they would like him to proceed with tracheostomy and PEG tube placement and eventual placement. We will decide this early next week in the meantime patient is not related to believe that extubated. CBC is relatively unremarkable WBC 7.3 hemoglobin is 8.8, basic metabolic profile is relatively normal, BUN is 67 creatinine is 1.36 hence we will increase his IV fluid to 75 mL Reevaluated today on 04/04/22, patient remains in the ICU, intubated and mechanically ventilated. 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 ABG showed a pO2 of 69 pCO2 of 67 pH of 7.29. Hence we'll increase his rate to 24. Patient remains on propofol at 50 mcg/kg/m, IV fluid 0.9 normal saline at 75 mL per hour. He is receiving vital HP at 50 mL per hour/cor. His sputum is coming back positive for Serratia and Haemophilus influenza both are covered with Zosyn. Patient has been on Zosyn all along. Patient is sedated however I will try to awaken the patient today, and assess mental status. On physical examination he continues to have tightness and wheezing and I don't believe the patient is ready to have any weaning trials again. Today I even discussed the situation all over with the family about possible tracheostomy PEG tube placement PICC line placement and eventual placement and a ventilator facility. I also discussed the option of comfort care measures. Family seems to be inclin ed to proceed with tracheostomy and PEG tube placement as well as PICC line placement and eventual transfer to a ventilator facility/selective care specialty. Prognosis is obviously very poor, and the family is very well aware that the patient has poor prognosis with severe end-stage COPD and bronchogenic carcinoma. WBC count is 8.8 hemoglobin is 9.7, basic metabolic profile is normal BUN is 60 creatinine 0.68. For some reason a CT angio the chest was ordered yesterday, no evidence of pulmonary embolism clinically I never thought that the patient had pulmonary embolism and the clinical presentation is not a presentation of pulmonary embolism. Progress note dated 04/05/2022. 71-year-old male admitted to the hospital on March 31, with respiratory failure. He was intubated on the same day. He remains on mechanical ventilator. I spoke to his and daughter today. They will agree to tracheostomy and PEG tube placement. This was apparently discussed by my partner with the family yesterday, who knows the patient well, and who has been taking care of this patient for over 20 years. Currently, he remains on the volume assist control, rate 20, tidal volume 450, FiO2 35%, and PEEP of 5. Arterial blood gases show pO2 of 69, pCO2 of 69, and pH is 7.28. The patient remains on propofol at 35 mcg/m, saline at 75 mL an hour, and vital high protein at 50 mL an hour, with a goal of 50 mL an hour. Norepinephrine has been weaned off and the patient remains on Zosyn. White count 11.8, hemoglobin 9.9, hematocrit 33, platelet count 439,000. Sodium 146, potassium 4.9, chlorides 108, CO2 32, BUN 52, creatinine 0.64. Sputum samples from April 01 positive for Serratia, and Haemophilus. Chest x-ray is essentially unchanged. Progress note dated 04/06/2022 71-year-old male admitted to the hospital on March 31, with respiratory failure. He was intubated on the same day. He remains on mechanical ventilator. The patient is to have a tracheostomy tube and PEG tube placed today. He is currently on volume assist control, rate 20, tidal volume 450, FiO2 40%, and PEEP of 5. Blood gases show pO2 of 91, pCO2 of 65, and pH is 7.33. The patient is currently on propofol at 40 mcg/kg/m, and saline at 75 mL an hour. Tube feedings on hold in anticipation of the surgical procedure today. White count 11.4, hemoglobin 9.4, hematocrit 31.6, and platelet count 460,000. Sodium 148, potassium 4.6, chlorides 109, CO2 30, anion gap 7, BUN 47, and creatinine 0.71. Chest x-ray shows some diffuse bilateral infiltrates, and is essentially unchanged. Progress note dated 04/07/2022. 71-year-old male admitted to the hospital on March 31, with respiratory failure. He was intubated on the same day. He remains on the mechanical ventilator. Yesterday, he had a tracheostomy tube and a PEG tube placed by surgery. The patient is on volume assist control, rate 20, tidal volume 450, FiO2 40%, and PEEP of 5. Blood gases show a PaO2 of 86, pCO2 of 68, and pH 7.31. He is somewhat dyssynchronous with the ventilator, so we will switch him to pressure regulated volume control or VC plus with a targeted tidal volume of 450, inspiratory time of 0.8 seconds. He's currently on propofol at 25 mcg/kg/m, norepinephrine at 0.07 mcg/kg/m, lactated Ringer's at 10 mL an hour, and D5W at 75 mL an hour. Tube feedings have not yet been restarted. White count 10.5, hemoglobin 8.7, hematocrit 28.6, and platelet count 355,000. Sodium 143, potassium 4.6, chloride 106, CO2 33, BUN 32, and creatinine 0.72. Albumin is 2.3. Sputum from April 01 showed both Serratia marcescens and Haemophilus influenzae. No chest x-ray she had today. Progress note dated 04/08/2022. 71-year-old male who was admitted to the hospital on March 31, with respiratory failure. He was unfortunately intubated on the same day. He remains on the mechanical ventilator. He is status post tracheostomy and PEG tube placement. Currently, he is on pressure regulated volume control, with a targeted tidal volume of 450, anion inspiratory time of 0.8 seconds. His respiratory rate is 20 his FiO2 is 40% PEEP is 5. He is much more synchronous with the ventilator. Blood gases show pO2 of 88, pCO2 of 61, and a pH is 7.37. The patient's Zosyn will be discontinued. He'll get Lasix 40 mg IV push. In addition, in an attempt to get him off the propofol, we added Dilaudid 1 mg every 2 hours when necessary, and Seroquel 50 mg 3 times a day. His norepinephrine is currently on hold. He is on propofol at 45 mcg/kg/m, and D5W at 75 mL an hour, which will be made KVO. Finally, he is getting Vital at 20 mL an hour, with a goal of 50. White count 8.5, hemoglobin 8.2, hematocrit 27.5, and platelet count 319,000. Sodium 139, potassium 4.6, chlorides 101, CO2 33, E1 31, and creatinine 0.67. Albumin is only 2.2. Sputum sampling from April 01 shows evidence of both Serratia marcescens and Haemophilus influenzae. Chest x-ray shows a midline tracheostomy, changes of COPD, and a left perihilar mass. Objective - Vital Signs Vital signs: Vital Signs Temp 98.2 F 04/08/22 04:00 Pulse 84 04/08/22 08:12 Resp 20 04/08/22 07:00 BP 99/63 04/08/22 07:00 Pulse Ox 100 04/08/22 07:00 FiO2 40 04/08/22 07:10 Intake & Output 04/07/22 04/08/22 04/08/22 18:59 06:59 18:59 Intake Total 0295.414 7661.116 78 Output Total 620 550 45 Balance 628.350 804.116 33 Weight 88 kg 88 kg Intake: IV 1111 1061 78 Dextrose 5% in Water 1, 900 900 75 000 ml @ 75 mls/hr IV . [id number] [facility] Rx#:[id number] Piperacillin-Tazobactam 3 175 125 .375 gm In Sodium Chloride 0.9% 100 ml @ 25 mls/hr IVPB Q8HR [facility] Rx# :[id number] pressure bag 36 36 3 Intake, IV Titration 137.350 293.116 0 Amount Norepinephrine 4 mg In 63.153 88.707 0 Sodium Chloride 0.9% 250 ml @ 0.05 MCG/KG/MIN 14. 63 mls/hr IV .[id number] [facility] Rx#:[id number] propofoL 1,000 mg In 74.197 204.409 Empty Bag 1 bag @ 5 MCG/ KG/MIN 2.041 mls/hr IV . Q24H [facility] Rx#:[id number] Output: Urine 620 550 45 Other: Voiding Method Indwelling Catheter Indwelling Catheter ABP, PAP, CO, CI - Last Documented Arterial Blood Pressure 123/50 - Exam No acute distress, currently on propofol, with a midline tracheostomy tube. HEENT examination is grossly unremarkable. Neck supple. Full range of motion. No adenopathy thyromegaly or neck vein distention. Cardiovascular examination reveals regular rhythm rate. S1-S2 normal. No S3 or S4. No discernible murmur noted. Heart sounds are distant. Heart rate 84 bpm. Lungs reveal scattered bilateral rhonchi. Breath sounds equal bilaterally wheezes. No crackles. Saturations 97 %. Abdomen soft bowel sounds are heard. No masses or tenderness. PEG tube noted. Extremities are intact. No cyanosis clubbing or edema. Skin is without rash or lesion. Neurologic examination cannot be properly assessed. - Labs CBC & Chem 7: 04/08/22 04:00 04/08/22 04:00 Labs: Abnormal Lab Results - Last 24 Hours (Table) 04/07/22 04/07/22 04/07/22 Range/Units 11:25 16:14 20:37 RBC (4.30-5.90) m/uL Hgb (13.0-17.5) gm/dL Hct (39.0-53.0) % MCV (80.0-100.0) fL MCHC (31.0-37.0) g/dL RDW (11.5-15.5) % Macrocytosis ABG pCO2 (35-45) mmHg ABG HCO3 (21-25) mmol/L ABG Total CO2 (19-24) mmol/L ABG O2 Saturation (94-97) % Carbon Dioxide (22-30) mmol/L BUN (9-20) mg/dL Glucose (74-99) mg/dL POC Glucose (mg/dL) 188 H 205 H 226 H (70-110) mg/dL Total Bilirubin (0.2-1.3) mg/dL Alkaline Phosphatase (38-126) U/L Total Protein (6.3-8.2) g/dL Albumin (3.5-5.0) g/dL 04/08/22 04/08/22 04/08/22 Range/Units 00:02 04:00 04:00 RBC 2.71 L (4.30-5.90) m/uL Hgb 8.2 L (13.0-17.5) gm/dL Hct 27.5 L (39.0-53.0) % MCV 101.6 H (80.0-100.0) fL MCHC 29.8 L (31.0-37.0) g/dL RDW 21.2 H (11.5-15.5) % Macrocytosis Marked A ABG pCO2 (35-45) mmHg ABG HCO3 (21-25) mmol/L ABG Total CO2 (19-24) mmol/L ABG O2 Saturation (94-97) % Carbon Dioxide 33 H (22-30) mmol/L BUN 31 H (9-20) mg/dL Glucose 170 H (74-99) mg/dL POC Glucose (mg/dL) 193 H (70-110) mg/dL Total Bilirubin <0.1 L (0.2-1.3) mg/dL Alkaline Phosphatase 142 H (38-126) U/L Total Protein 4.6 L (6.3-8.2) g/dL Albumin 2.2 L (3.5-5.0) g/dL 04/08/22 04/08/22 04/08/22 Range/Units 04:30 06:36 09:26 RBC (4.30-5.90) m/uL Hgb (13.0-17.5) gm/dL Hct (39.0-53.0) % MCV (80.0-100.0) fL MCHC (31.0-37.0) g/dL RDW (11.5-15.5) % Macrocytosis ABG pCO2 61 H (35-45) mmHg ABG HCO3 35 H (21-25) mmol/L ABG Total CO2 37 H (19-24) mmol/L ABG O2 Saturation 97.7 H (94-97) % Carbon Dioxide (22-30) mmol/L BUN (9-20) mg/dL Glucose (74-99) mg/dL POC Glucose (mg/dL) 180 H 178 H (70-110) mg/dL Total Bilirubin (0.2-1.3) mg/dL Alkaline Phosphatase (38-126) U/L Total Protein (6.3-8.2) g/dL Albumin (3.5-5.0) g/dL Microbiology - Last 24 Hours (Table) 04/01/22 11:54 Blood Culture - Final Blood No Growth after 144 hours 04/01/22 09:09 Blood Culture - Final Blood No Growth after 144 hours Assessment and Plan Assessment: Acute on chronic hypoxemic and hypercapnic respiratory failure, status post intubation and mechanical ventilation on 03/31/2022, status post tracheostomy and PEG tube placement 04/06/2022, for failure to wean from mechanical ventilation. Bilateral pneumonia and sepsis, secondary to Serratia and Haemophilus. Acute exacerbation of COPD. History of squamous cell lung cancer, diagnosed December 2021. Previous history of respiratory failure, requiring intubation, and subsequent tracheostomy. Generalized anxiety disorder. Severe/stage III/stage IV COPD, with an FEV1 that's 35%. Degenerative joint disease. Acute kidney injury. Plan: Plan dated 04/05/2022. The patient will proceed with a tracheostomy and PEG tube, as per the wishes of the and daughter. The patient on IV Zosyn, and other breathing treatments. The patient also remains on GI and DVT prophylaxis. No additional recommendations are made. I did mention to the , that the patient may end up at long-term acute care facility or specialized nursing facility. Prognosis is extremely poor. We'll continue with tube feeds. Norepinephrine has been weaned off. Labs, x-rays, medications are all reviewed. Plan dated 04/06/2022. I had a long conversation with the patient's yesterday about PEG tube placement and tracheostomy tube. She is in agreement. She understands that he has a very poor prognosis given his diagnosis of COPD and lung cancer. Nonetheless, she does want to proceed with the PEG tube and the tracheostomy tube. Labs, x-rays, and medications are reviewed. Prognosis is poor. I did mention to her that he would likely end up at long-term acute care facility or specialized nursing facility after discharge from this institution. The patient remains on Zosyn. His saline IV is changed to D5 W because of hypernatremia. Plan dated 04/07/2022. The patient's ventilation will be changed to pressure regulated volume control. We will have a targeted tidal volume of 450, and a inspiratory time of 0.8 seconds. The patient remains on propofol, and norepinephrine. Tube feedings have not yet been restarted. He continues on Zosyn for Serratia and Haemophilus influenzae. The patient had a tracheostomy tube and PEG tube placed yesterday, April 06. Labs, x-rays, and medications are reviewed. Overall prognosis remains very poor. I did mention to the that he will probably end up in a long-term acute care center. Plan dated 04/08/2022. The patient's much more synchronous on the ventilator, and the pressure regulated volume control modality. Blood gases are stable. Labs, x-rays, and medications are all reviewed. The patient Zosyn will be discontinued today. He did receive 7 days. For his edema, he will get Lasix 40 mg IV push. We will at tempt to get him off the propofol, by adding Dilaudid when necessary, and scheduled Seroquel. His D5W IV will be turned down to KVO. Norepinephrine is currently on hold. Overall prognosis remains very poor. The nursing staff is having difficulty with the patient's tracheostomy, because of scar tissue, from a previous tracheostomy. Time with Patient: Greater than 30
--- NOTE | 2022-04-08 11:13 | P.PN ---
Subjective Progress Note Date: 04/08/22 CHIEF COMPLAINT: Respiratory failure HISTORY OF PRESENT ILLNESS: Patient remains in the ICU. He is status post tracheostomy and PEG tube placement. Patient does have a cuff leak noted. Cuff leak worsens with movement. He was started on tube feeds. Is currently on 30 mL per hour of tube feeds. Tolerating tube feeds without difficulty. Afebrile. WBC 8.5 Hgb 8.2 patient did receive a dose of Lasix today. They are attempting to wean patient off of the propofol Patient seen and examined with Dr. olivier PHYSICAL EXAM: VITAL SIGNS: Reviewed. GENERAL: Well-developed in no acute distress. HEENT: Tracheostomy site clean and dry and intact. Evidence of cuff leak ABDOMEN: Soft. Nondistended. Nontender. PEG tube site clean dry and intact NEUROLOGIC: Alert and oriented. Cranial nerves II through XII grossly intact. ASSESSMENT: 1. Severe protein calorie malnutrition 2. Acute respiratory failure requiring mechanical ventilation secondary to COPD, aspiration pneumonia and lung cancer 3. History of previous tracheostomy with scar tissue at the tracheostomy site likely contributing to patient's cuff leak PLAN: -Continue to monitor cuff leak -Continue to titrate tube feeds per dietitian recommendations -Continue ICU management and supportive care Physician Vegetable Tester note has been reviewed by physician. Signing provider agrees with the documented findings, assessment, and plan of care. Objective - Vital Signs Vital signs: Vital Signs Temp 99.8 F H 04/08/22 08:30 Pulse 89 04/08/22 10:30 Resp 20 04/08/22 10:30 BP 83/66 04/08/22 10:30 Pulse Ox 100 04/08/22 10:30 FiO2 40 04/08/22 08:30 Intake & Output 04/07/22 04/08/22 04/08/22 18:59 06:59 18:59 Intake Total 1999.470 5151.116 178.019 Output Total 620 550 270 Balance 628.350 804.116 -91.981 Weight 88 kg 88 kg Intake: IV 1111 1061 78 Dextrose 5% in Water 1, 900 900 75 000 ml @ 20 mls/hr IV . Q24H [facility] Rx#:[id number] Piperacillin-Tazobactam 3 175 125 .375 gm In Sodium Chloride 0.9% 100 ml @ 25 mls/hr IVPB Q8HR [facility] Rx# :[id number] pressure bag 36 36 3 Intake, IV Titration 137.350 293.116 100.019 Amount Norepinephrine 4 mg In 63.153 88.707 1.122 Sodium Chloride 0.9% 250 ml @ 0.05 MCG/KG/MIN 14. 63 mls/hr IV .[id number] [facility] Rx#:[id number] propofoL 1,000 mg In 74.197 204.409 98.897 Empty Bag 1 bag @ 5 MCG/ KG/MIN 2.041 mls/hr IV . Q24H [facility] Rx#:[id number] Output: Urine 620 550 270 Other: Voiding Method Indwelling Catheter Indwelling Catheter ABP, PAP, CO, CI - Last Documented Arterial Blood Pressure 114/48 - Labs CBC & Chem 7: 04/08/22 04:00 04/08/22 04:00 Labs: Abnormal Lab Results - Last 24 Hours (Table) 04/07/22 04/07/22 04/07/22 Range/Units 11:25 16:14 20:37 RBC (4.30-5.90) m/uL Hgb (13.0-17.5) gm/dL Hct (39.0-53.0) % MCV (80.0-100.0) fL MCHC (31.0-37.0) g/dL RDW (11.5-15.5) % Macrocytosis ABG pCO2 (35-45) mmHg ABG HCO3 (21-25) mmol/L ABG Total CO2 (19-24) mmol/L ABG O2 Saturation (94-97) % Carbon Dioxide (22-30) mmol/L BUN (9-20) mg/dL Glucose (74-99) mg/dL POC Glucose (mg/dL) 188 H 205 H 226 H (70-110) mg/dL Total Bilirubin (0.2-1.3) mg/dL Alkaline Phosphatase (38-126) U/L Total Protein (6.3-8.2) g/dL Albumin (3.5-5.0) g/dL 04/08/22 04/08/22 04/08/22 Range/Units 00:02 04:00 04:00 RBC 2.71 L (4.30-5.90) m/uL Hgb 8.2 L (13.0-17.5) gm/dL Hct 27.5 L (39.0-53.0) % MCV 101.6 H (80.0-100.0) fL MCHC 29.8 L (31.0-37.0) g/dL RDW 21.2 H (11.5-15.5) % Macrocytosis Marked A ABG pCO2 (35-45) mmHg ABG HCO3 (21-25) mmol/L ABG Total CO2 (19-24) mmol/L ABG O2 Saturation (94-97) % Carbon Dioxide 33 H (22-30) mmol/L BUN 31 H (9-20) mg/dL Glucose 170 H (74-99) mg/dL POC Glucose (mg/dL) 193 H (70-110) mg/dL Total Bilirubin <0.1 L (0.2-1.3) mg/dL Alkaline Phosphatase 142 H (38-126) U/L Total Protein 4.6 L (6.3-8.2) g/dL Albumin 2.2 L (3.5-5.0) g/dL 04/08/22 04/08/22 04/08/22 Range/Units 04:30 06:36 09:26 RBC (4.30-5.90) m/uL Hgb (13.0-17.5) gm/dL Hct (39.0-53.0) % MCV (80.0-100.0) fL MCHC (31.0-37.0) g/dL RDW (11.5-15.5) % Macrocytosis ABG pCO2 61 H (35-45) mmHg ABG HCO3 35 H (21-25) mmol/L ABG Total CO2 37 H (19-24) mmol/L ABG O2 Saturation 97.7 H (94-97) % Carbon Dioxide (22-30) mmol/L BUN (9-20) mg/dL Glucose (74-99) mg/dL POC Glucose (mg/dL) 180 H 178 H (70-110) mg/dL Total Bilirubin (0.2-1.3) mg/dL Alkaline Phosphatase (38-126) U/L Total Protein (6.3-8.2) g/dL Albumin (3.5-5.0) g/dL Microbiology - Last 24 Hours (Table) 04/01/22 11:54 Blood Culture - Final Blood No Growth after 144 hours 04/01/22 09:09 Blood Culture - Final Blood No Growth after 144 hours
[2022-04-08 12:03] LABS: Glucose,Whole Blood 179 mg/dL (70-110)
[2022-04-08 15:23] LABS: Glucose,Whole Blood 161 mg/dL (70-110)
[2022-04-08 17:45] LABS: Glucose,Whole Blood 155 mg/dL (70-110)
[2022-04-08] MEDS: NOREPINEPHRINE 4 MG in SODIUM CHLORIDE 0.9% 250 ML IV SCH ×2 (17:51→22:27)
[2022-04-08] MEDS: ATORVASTATIN 10 MG TAB PO SCH (21:33)
[2022-04-08] MEDS: LATANOPROST 0.005% OPHTH DROPS 2.5 ML BTL BOTH EYES SCH (21:34)
[2022-04-08 21:42] LABS: Glucose,Whole Blood 142 mg/dL (70-110)
[2022-04-09 00:29] LABS: Glucose,Whole Blood 176 mg/dL (70-110)
[2022-04-09] MEDS: INSULIN ASPART (NovoLOG) 100 UNIT/ML VIAL SQ SCH ×5 (00:45→23:38)
[2022-04-09] MEDS: HYDROmorphone 1 MG/ML 1 ML SYRINGE IVP SCH ×12 (03:26→23:38)
[2022-04-09 04:37] LABS: Anisocytosis Moderate; Basophils % (A) 0 %; Eosinophils % (A) 0 %; HCT 27.1 % (39.0-53.0); HGB 8.3 gm/dL (13.0-17.5); Hypochromasia Marked; Lymphocytes # (A) 0.3 k/uL (1.0-4.8); Lymphocytes % (A) 4 %; MCH 30.7 pg (25.0-35.0); MCHC 30.7 g/dL (31.0-37.0); MCV 99.9 fL (80.0-100.0); Macrocytosis Moderate; Mean Platelet Volume 8.3; Monocytes # (A) 0.2 k/uL (0-1.0); Monocytes % (A) 2 %; Neutrophils # (A) 8.3 k/uL (1.3-7.7); Neutrophils % (A) 93 %; Platelet Count 303 k/uL (150-450); RBC 2.71 m/uL (4.30-5.90); RDW 21.5 % (11.5-15.5)
[2022-04-09 04:51] LABS: ALT 41 U/L (4-49); AST 35 U/L (17-59); African American GFR (CKD) >90 (>60 ml/min/1.73 sqM); Albumin 2.2 g/dL (3.5-5.0); Alkaline Phosphatase 198 U/L (38-126); Anion Gap 4 mmol/L; Blood Urea Nitrogen 30 mg/dL (9-20); Calcium 8.5 mg/dL (8.4-10.2); Carbon Dioxide 36 mmol/L (22-30); Chloride 100 mmol/L (98-107); Glucose 140 mg/dL (74-99); Non-African American GFR(CKD) >90 (>60 ml/min/1.73 sqM); Potassium 4.6 mmol/L (3.5-5.1); Sodium 140 mmol/L (137-145); Total Bilirubin <0.1 mg/dL (0.2-1.3); Total Protein 4.7 g/dL (6.3-8.2)
[2022-04-09 05:45] LABS: ABG Base Excess 11.2 mmol/L; ABG HCO3 37 mmol/L (21-25); ABG Oxygen Saturation 96.4 % (94-97); ABG PCO2 63 mmHg (35-45); ABG PH 7.37 (7.35-7.45); ABG PO2 79 mmHg (83-108); ABG TCO2 38 mmol/L (19-24); Allen Test Performed? Yes
[2022-04-09 05:55] LABS: Glucose,Whole Blood 171 mg/dL (70-110)
[2022-04-09] MEDS: IPRATROPIUM-ALBUTEROL 3 ML NEB INHALATION SCH ×4 (07:45→19:16)
[2022-04-09] MEDS: BUDESONIDE 1 MG/2 ML NEBU INHALATION SCH ×2 (07:45→19:16)
[2022-04-09] MEDS: FORMOTEROL FUMARATE 20 MCG/2 ML NEBU INHALATION SCH ×2 (07:45→19:16)
--- NOTE | 2022-04-09 07:52 | XR ---
EXAMINATION TYPE: XR chest 1V portable DATE OF EXAM: 04/09/2022 COMPARISON: Chest x-ray 04/07/2022 HISTORY: Tracheostomy tube, abnormal chest x-ray TECHNIQUE: frontal view of the chest is obtained on 2 images. FINDINGS: There are prominent lung volumes with apical lucencies suggesting underlying COPD. Patchy basilar density is noted. Interstitium is diffusely increased. Abnormal left hilar density is present . Tracheostomy tube is in place. No evident pneumothorax or pleural effusion. Cardiac mediastinal caridad houette is stable. There are overlying leads. IMPRESSION: Left hilar mass. Emphysema. Difficult to exclude pneumonia.
[2022-04-09] MEDS ORDERED: FUROSEMIDE 10 MG/ML 10 ML VIAL IV STA (08:10)
--- NOTE | 2022-04-09 08:13 | P.PN ---
Subjective Principal diagnosis: Respiratory failure This is 71 white male with known history of COPD who is not intubated but slowly weaning. The patient is on FiO2 40%. Still requiring pressors although slowly decreasing Tracheostomy is present. Left hilar mass is noted on x-ray. The patient is spacing. Prognosis is guarded. Multiple consultants. Objective - Vital Signs Vital signs: Vital Signs Temp 98.2 F 04/08/22 04:00 Pulse 76 04/08/22 07:00 Resp 20 04/08/22 07:00 BP 99/63 04/08/22 07:00 Pulse Ox 100 04/08/22 07:00 FiO2 40 04/08/22 07:10 Intake & Output 04/07/22 04/08/22 04/08/22 18:59 06:59 18:59 Intake Total 4320.326 3846.116 78 Output Total 620 550 45 Balance 628.350 804.116 33 Weight 88 kg Intake: IV 1111 1061 78 Dextrose 5% in Water 1, 900 900 75 000 ml @ 75 mls/hr IV . [id number] [facility] Rx#:[id number] Piperacillin-Tazobactam 3 175 125 .375 gm In Sodium Chloride 0.9% 100 ml @ 25 mls/hr IVPB Q8HR [facility] Rx# :[id number] pressure bag 36 36 3 Intake, IV Titration 137.350 293.116 Amount Norepinephrine 4 mg In 63.153 88.707 Sodium Chloride 0.9% 250 ml @ 0.05 MCG/KG/MIN 14. 63 mls/hr IV .[id number] [facility] Rx#:[id number] propofoL 1,000 mg In 74.197 204.409 Empty Bag 1 bag @ 5 MCG/ KG/MIN 2.041 mls/hr IV . Q24H [facility] Rx#:[id number] Output: Urine 620 550 45 Other: Voiding Method Indwelling Catheter Indwelling Catheter ABP, PAP, CO, CI - Last Documented Arterial Blood Pressure 123/50 - Constitutional General appearance: Present: no acute distress - Neck Neck: Absent: lymphadenopathy - Respiratory Respiratory: bilateral: wheezing - Cardiovascular Rhythm: regular Heart sounds: normal: S1, S2 Abnormal Heart Sounds: Absent: S3 Gallop - Gastrointestinal General gastrointestinal: Present: soft. Absent: tenderness - Integumentary Integumentary Comment(s): Edema noted Integumentary: Absent: cyanotic - Psychiatric Psychiatric: Absent: A&O x's 3 - Labs CBC & Chem 7: 04/08/22 04:00 04/08/22 04:00 Labs: Abnormal Lab Results - Last 24 Hours (Table) 04/07/22 04/07/22 04/07/22 Range/Units 08:56 11:25 16:14 RBC (4.30-5.90) m/uL Hgb (13.0-17.5) gm/dL Hct (39.0-53.0) % MCV (80.0-100.0) fL MCHC (31.0-37.0) g/dL RDW (11.5-15.5) % Macrocytosis ABG pCO2 (35-45) mmHg ABG HCO3 (21-25) mmol/L ABG Total CO2 (19-24) mmol/L ABG O2 Saturation (94-97) % Carbon Dioxide (22-30) mmol/L BUN (9-20) mg/dL Glucose (74-99) mg/dL POC Glucose (mg/dL) 179 H 188 H 205 H (70-110) mg/dL Total Bilirubin (0.2-1.3) mg/dL Alkaline Phosphatase (38-126) U/L Total Protein (6.3-8.2) g/dL Albumin (3.5-5.0) g/dL 04/07/22 04/08/22 04/08/22 Range/Units 20:37 00:02 04:00 RBC 2.71 L (4.30-5.90) m/uL Hgb 8.2 L (13.0-17.5) gm/dL Hct 27.5 L (39.0-53.0) % MCV 101.6 H (80.0-100.0) fL MCHC 29.8 L (31.0-37.0) g/dL RDW 21.2 H (11.5-15.5) % Macrocytosis Marked A ABG pCO2 (35-45) mmHg ABG HCO3 (21-25) mmol/L ABG Total CO2 (19-24) mmol/L ABG O2 Saturation (94-97) % Carbon Dioxide (22-30) mmol/L BUN (9-20) mg/dL Glucose (74-99) mg/dL POC Glucose (mg/dL) 226 H 193 H (70-110) mg/dL Total Bilirubin (0.2-1.3) mg/dL Alkaline Phosphatase (38-126) U/L Total Protein (6.3-8.2) g/dL Albumin (3.5-5.0) g/dL 04/08/22 04/08/22 04/08/22 Range/Units 04:00 04:30 06:36 RBC (4.30-5.90) m/uL Hgb (13.0-17.5) gm/dL Hct (39.0-53.0) % MCV (80.0-100.0) fL MCHC (31.0-37.0) g/dL RDW (11.5-15.5) % Macrocytosis ABG pCO2 61 H (35-45) mmHg ABG HCO3 35 H (21-25) mmol/L ABG Total CO2 37 H (19-24) mmol/L ABG O2 Saturation 97.7 H (94-97) % Carbon Dioxide 33 H (22-30) mmol/L BUN 31 H (9-20) mg/dL Glucose 170 H (74-99) mg/dL POC Glucose (mg/dL) 180 H (70-110) mg/dL Total Bilirubin <0.1 L (0.2-1.3) mg/dL Alkaline Phosphatase 142 H (38-126) U/L Total Protein 4.6 L (6.3-8.2) g/dL Albumin 2.2 L (3.5-5.0) g/dL Microbiology - Last 24 Hours (Table) 04/01/22 11:54 Blood Culture - Final Blood No Growth after 144 hours 04/01/22 09:09 Blood Culture - Final Blood No Growth after 144 hours Assessment and Plan (1) COPD (chronic obstructive pulmonary disease) Current Visit: Yes Status: Acute Code(s): J44.9 - CHRONIC OBSTRUCTIVE PULMONARY DISEASE, UNSPECIFIED SNOMED Code(s): 41285051 (2) Acute exacerbation of chronic obstructive pulmonary disease Current Visit: No Status: Acute Code(s): J44.1 - CHRONIC OBSTRUCTIVE PULMONARY DISEASE W (ACUTE) EXACERBATION SNOMED Code(s): 646971940 (3) Acute respiratory failure Current Visit: No Status: Acute Code(s): J96.00 - ACUTE RESPIRATORY FAILURE, UNSP W HYPOXIA OR HYPERCAPNIA SNOMED Code(s): 78741574 (4) Pneumonia Current Visit: No Status: Acute Code(s): J18.9 - PNEUMONIA, UNSPECIFIED ORGANISM SNOMED Code(s): 666529662 (5) Hilar mass Current Visit: Yes Status: Acute Code(s): R91.8 - OTHER NONSPECIFIC ABNORMAL FINDING OF LUNG FIELD SNOMED Code(s): 385291464 Plan: Continue supportive care Check CBC and CMP in a.m. Prognosis is guarded.
--- NOTE | 2022-04-09 08:14 | P.PN ---
Subjective Principal diagnosis: Respiratory failure This is 71 white male with known history of COPD who is not intubated but slowly weaning. The patient is on FiO2 40%. Still requiring pressors although slowly decreasing Tracheostomy is present. Left hilar mass is noted on x-ray. The patient is spacing. Prognosis is guarded. Multiple consultants. Left upper extremity is cooler than the right Objective - Vital Signs Vital signs: Vital Signs Temp 100.2 F H 04/09/22 04:00 Pulse 100 04/09/22 08:09 Resp 24 04/09/22 07:00 BP 114/67 04/08/22 18:30 Pulse Ox 98 04/09/22 07:00 FiO2 40 04/09/22 07:27 Intake & Output 04/08/22 04/09/22 04/09/22 18:59 06:59 18:59 Intake Total 248.993 791.093 49.123 Output Total 945 800 45 Balance -696.007 -8.907 4.123 Weight 89 kg Intake: IV 78 33 3 Dextrose 5% in Water 1, 75 000 ml @ 20 mls/hr IV . Q24H [facility] Rx#:[id number] pressure bag 3 33 3 Intake, IV Titration 170.993 228.093 6.123 Amount Norepinephrine 4 mg In 43.451 83.539 Sodium Chloride 0.9% 250 ml @ 0.05 MCG/KG/MIN 14. 63 mls/hr IV .[id number] [facility] Rx#:[id number] propofoL 1,000 mg In 127.542 144.554 6.123 Empty Bag 1 bag @ 5 MCG/ KG/MIN 2.041 mls/hr IV . Q24H [facility] Rx#:[id number] Tube Feeding 440 40 Other 90 Output: Urine 945 800 45 Other: Voiding Method Indwelling Catheter Indwelling Catheter ABP, PAP, CO, CI - Last Documented Arterial Blood Pressure 139/55 - Constitutional General appearance: Present: no acute distress - EENT Eyes: Absent: abnormal pupil - Respiratory Respiratory: right: wheezing - Cardiovascular Rhythm: regular Heart sounds: normal: S1, S2 Abnormal Heart Sounds: Absent: S3 Gallop - Gastrointestinal General gastrointestinal: Present: soft. Absent: tenderness - Neurologic Neurologic: Absent: CNII-XII intact - Labs CBC & Chem 7: 04/09/22 04:05 04/09/22 04:05 Labs: Abnormal Lab Results - Last 24 Hours (Table) 04/08/22 04/08/22 04/08/22 Range/Units 09:26 12:02 15:21 RBC (4.30-5.90) m/uL Hgb (13.0-17.5) gm/dL Hct (39.0-53.0) % MCHC (31.0-37.0) g/dL RDW (11.5-15.5) % Neutrophils # (1.3-7.7) k/uL Lymphocytes # (1.0-4.8) k/uL ABG pCO2 (35-45) mmHg ABG pO2 (83-108) mmHg ABG HCO3 (21-25) mmol/L ABG Total CO2 (19-24) mmol/L Carbon Dioxide (22-30) mmol/L BUN (9-20) mg/dL Creatinine (0.66-1.25) mg/dL Glucose (74-99) mg/dL POC Glucose (mg/dL) 178 H 179 H 161 H (70-110) mg/dL Total Bilirubin (0.2-1.3) mg/dL Alkaline Phosphatase (38-126) U/L Total Protein (6.3-8.2) g/dL Albumin (3.5-5.0) g/dL 04/08/22 04/08/22 04/09/22 Range/Units 17:42 21:40 00:27 RBC (4.30-5.90) m/uL Hgb (13.0-17.5) gm/dL Hct (39.0-53.0) % MCHC (31.0-37.0) g/dL RDW (11.5-15.5) % Neutrophils # (1.3-7.7) k/uL Lymphocytes # (1.0-4.8) k/uL ABG pCO2 (35-45) mmHg ABG pO2 (83-108) mmHg ABG HCO3 (21-25) mmol/L ABG Total CO2 (19-24) mmol/L Carbon Dioxide (22-30) mmol/L BUN (9-20) mg/dL Creatinine (0.66-1.25) mg/dL Glucose (74-99) mg/dL POC Glucose (mg/dL) 155 H 142 H 176 H (70-110) mg/dL Total Bilirubin (0.2-1.3) mg/dL Alkaline Phosphatase (38-126) U/L Total Protein (6.3-8.2) g/dL Albumin (3.5-5.0) g/dL 04/09/22 04/09/22 04/09/22 Range/Units 04:05 04:05 05:41 RBC 2.71 L (4.30-5.90) m/uL Hgb 8.3 L (13.0-17.5) gm/dL Hct 27.1 L (39.0-53.0) % MCHC 30.7 L (31.0-37.0) g/dL RDW 21.5 H (11.5-15.5) % Neutrophils # 8.3 H (1.3-7.7) k/uL Lymphocytes # 0.3 L (1.0-4.8) k/uL ABG pCO2 63 H (35-45) mmHg ABG pO2 79 L (83-108) mmHg ABG HCO3 37 H (21-25) mmol/L ABG Total CO2 38 H (19-24) mmol/L Carbon Dioxide 36 H (22-30) mmol/L BUN 30 H (9-20) mg/dL Creatinine 0.60 L (0.66-1.25) mg/dL Glucose 140 H (74-99) mg/dL POC Glucose (mg/dL) (70-110) mg/dL Total Bilirubin <0.1 L (0.2-1.3) mg/dL Alkaline Phosphatase 198 H (38-126) U/L Total Protein 4.7 L (6.3-8.2) g/dL Albumin 2.2 L (3.5-5.0) g/dL 04/09/22 Range/Units 05:52 RBC (4.30-5.90) m/uL Hgb (13.0-17.5) gm/dL Hct (39.0-53.0) % MCHC (31.0-37.0) g/dL RDW (11.5-15.5) % Neutrophils # (1.3-7.7) k/uL Lymphocytes # (1.0-4.8) k/uL ABG pCO2 (35-45) mmHg ABG pO2 (83-108) mmHg ABG HCO3 (21-25) mmol/L ABG Total CO2 (19-24) mmol/L Carbon Dioxide (22-30) mmol/L BUN (9-20) mg/dL Creatinine (0.66-1.25) mg/dL Glucose (74-99) mg/dL POC Glucose (mg/dL) 171 H (70-110) mg/dL Total Bilirubin (0.2-1.3) mg/dL Alkaline Phosphatase (38-126) U/L Total Protein (6.3-8.2) g/dL Albumin (3.5-5.0) g/dL Assessment and Plan (1) COPD (chronic obstructive pulmonary disease) Current Visit: Yes Status: Acute Code(s): J44.9 - CHRONIC OBSTRUCTIVE PULMONARY DISEASE, UNSPECIFIED SNOMED Code(s): 13235380 (2) Acute exacerbation of chronic obstructive pulmonary disease Current Visit: No Status: Acute Code(s): J44.1 - CHRONIC OBSTRUCTIVE PULMONARY DISEASE W (ACUTE) EXACERBATION SNOMED Code(s): 655362781 (3) Acute respiratory failure Current Visit: No Status: Acute Code(s): J96.00 - ACUTE RESPIRATORY FAILURE, UNSP W HYPOXIA OR HYPERCAPNIA SNOMED Code(s): 87719259 (4) Pneumonia Current Visit: No Status: Acute Code(s): J18.9 - PNEUMONIA, UNSPECIFIED ORGANISM SNOMED Code(s): 653890718 (5) Hilar mass Current Visit: Yes Status: Acute Code(s): R91.8 - OTHER NONSPECIFIC ABNORMAL FINDING OF LUNG FIELD SNOMED Code(s): 383055577 Plan: Continue supportive care Check CBC and CMP in a.m. Prognosis is guarded. Duplex ultrasound of the upper extremity.
[2022-04-09] MEDS: DEXTROSE 5% IN WATER 1,000 ML IV SCH ×2 (08:17→20:59)
--- NOTE | 2022-04-09 09:22 | US ---
EXAMINATION TYPE: US venous doppler duplex UE DATE OF EXAM: 04/09/2022 COMPARISON: NONE CLINICAL HISTORY: RUE more swollen and slightly warmer than LUE. SIDE PERFORMED: Exam done portably on ICU patient on a vent, technically difficult, limited exam. Unable to scan neck due to vent. Right Arm: Negative for DVT as seen. Left Arm: Negative for DVT as seen. Grayscale, color doppler, spectral doppler imaging performed of the deep veins of the upper extremiti es. There is normal flow, compressibility and vascular waveforms. IMPRESSION: No evidence of deep vein to most of either upper extremity.
[2022-04-09] MEDS: HEPARIN SODIUM,PORCINE/PF 5,000 UNIT/0.5 ML SYRINGE SQ SCH ×2 (09:31→20:21)
[2022-04-09] MEDS: GABAPENTIN 300 MG CAP PO SCH ×3 (09:31→21:13)
[2022-04-09] MEDS: CHOLECALCIFEROL 25 MCG (1000 IU) TABLET PO SCH (09:31)
[2022-04-09] MEDS: PANTOPRAZOLE 40 MG/10 ML VIAL IVP SCH (09:32)
[2022-04-09] MEDS: ASPIRIN 81 MG PO SCH (09:32)
[2022-04-09] MEDS: QUEtiapine 50 MG TAB PO SCH ×3 (09:32→21:13)
[2022-04-09] MEDS: CHLORHEXIDINE GLUCONATE 15 ML CUP MUCOUS MEM SCH ×2 (09:32→20:21)
--- NOTE | 2022-04-09 09:50 | P.PN ---
Subjective Progress Note Date: 04/09/22 Principal diagnosis: Respiratory failure. Reevaluated today on 04/03/22, patient remains in the ICU intubated and mechanically ventilated. He is now on assist control rate of 20 to volume 450 FiO2 35% and PEEP of 5. Peak airway pressure is 35. His ABG showed a pO2 of 106 pCO2 56 pH of 7.34. Patient remains on 35% FiO2. Patient is off norepinephrine he remains on normal saline at 50 mL an hour and on propofol at 50 mcg/kg/m. Patient is receiving vital Hp at 50 mL/h the goal is 50. On physical examination continues to have rhonchi and wheezes bilaterally chest x- rays showing slight improvement in his bilateral infiltrates. Left hilar mass remains the same. Hence I have no plans to wean the patient today, and the family has made a decision that the patient does not wean in the next few days, they would like him to proceed with tracheostomy and PEG tube placement and eventual placement. We will decide this early next week in the meantime patient is not related to believe that extubated. CBC is relatively unremarkable WBC 7.3 hemoglobin is 8.8, basic metabolic profile is relatively normal, BUN is 67 creatinine is 1.36 hence we will increase his IV fluid to 75 mL Reevaluated today on 04/04/22, patient remains in the ICU, intubated and mechanically ventilated. Not much of a change management coordinator the last 24 hours, patient remains on assist control rate of 20 to volume 450 FiO2 35% and PEEP of 5. ABG showed a pO2 of 69 pCO2 of 67 pH of 7.29. Hence we'll increase his rate to 24. Patient remains on propofol at 50 mcg/kg/m, IV fluid 0.9 normal saline at 75 mL per hour. He is receiving vital HP at 50 mL per hour/cor. His sputum is coming back positive for Serratia and Haemophilus influenza both are covered with Zosyn. Patient has been on Zosyn all along. Patient is sedated however I will try to awaken the patient today, and assess mental status. On physical examination he continues to have tightness and wheezing and I don't believe the patient is ready to have any weaning trials again. Today I even discussed the situation all over with the family about possible tracheostomy PEG tube placement PICC line placement and eventual placement and a ventilator facility. I also discussed the option of comfort care measures. Family seems to be inclin ed to proceed with tracheostomy and PEG tube placement as well as PICC line placement and eventual transfer to a ventilator facility/selective care specialty. Prognosis is obviously very poor, and the family is very well aware that the patient has poor prognosis with severe end-stage COPD and bronchogenic carcinoma. WBC count is 8.8 hemoglobin is 9.7, basic metabolic profile is normal BUN is 60 creatinine 0.68. For some reason a CT angio the chest was ordered yesterday, no evidence of pulmonary embolism clinically I never thought that the patient had pulmonary embolism and the clinical presentation is not a presentation of pulmonary embolism. Progress note dated 04/05/2022. 71-year-old male admitted to the hospital on March 31, with respiratory failure. He was intubated on the same day. He remains on mechanical ventilator. I spoke to his and daughter today. They will agree to tracheostomy and PEG tube placement. This was apparently discussed by my partner with the family yesterday, who knows the patient well, and who has been taking care of this patient for over 20 years. Currently, he remains on the volume assist control, rate 20, tidal volume 450, FiO2 35%, and PEEP of 5. Arterial blood gases show pO2 of 69, pCO2 of 69, and pH is 7.28. The patient remains on propofol at 35 mcg/m, saline at 75 mL an hour, and vital high protein at 50 mL an hour, with a goal of 50 mL an hour. Norepinephrine has been weaned off and the patient remains on Zosyn. White count 11.8, hemoglobin 9.9, hematocrit 33, platelet count 439,000. Sodium 146, potassium 4.9, chlorides 108, CO2 32, BUN 52, creatinine 0.64. Sputum samples from April 01 positive for Serratia, and Haemophilus. Chest x-ray is essentially unchanged. Progress note dated 04/06/2022 71-year-old male admitted to the hospital on March 31, with respiratory failure. He was intubated on the same day. He remains on mechanical ventilator. The patient is to have a tracheostomy tube and PEG tube placed today. He is currently on volume assist control, rate 20, tidal volume 450, FiO2 40%, and PEEP of 5. Blood gases show pO2 of 91, pCO2 of 65, and pH is 7.33. The patient is currently on propofol at 40 mcg/kg/m, and saline at 75 mL an hour. Tube feedings on hold in anticipation of the surgical procedure today. White count 11.4, hemoglobin 9.4, hematocrit 31.6, and platelet count 460,000. Sodium 148, potassium 4.6, chlorides 109, CO2 30, anion gap 7, BUN 47, and creatinine 0.71. Chest x-ray shows some diffuse bilateral infiltrates, and is essentially unchanged. Progress note dated 04/07/2022. 71-year-old male admitted to the hospital on March 31, with respiratory failure. He was intubated on the same day. He remains on the mechanical ventilator. Yesterday, he had a tracheostomy tube and a PEG tube placed by surgery. The patient is on volume assist control, rate 20, tidal volume 450, FiO2 40%, and PEEP of 5. Blood gases show a PaO2 of 86, pCO2 of 68, and pH 7.31. He is somewhat dyssynchronous with the ventilator, so we will switch him to pressure regulated volume control or VC plus with a targeted tidal volume of 450, inspiratory time of 0.8 seconds. He's currently on propofol at 25 mcg/kg/m, norepinephrine at 0.07 mcg/kg/m, lactated Ringer's at 10 mL an hour, and D5W at 75 mL an hour. Tube feedings have not yet been restarted. White count 10.5, hemoglobin 8.7, hematocrit 28.6, and platelet count 355,000. Sodium 143, potassium 4.6, chloride 106, CO2 33, BUN 32, and creatinine 0.72. Albumin is 2.3. Sputum from April 01 showed both Serratia marcescens and Haemophilus influenzae. No chest x-ray she had today. Progress note dated 04/08/2022. 71-year-old male who was admitted to the hospital on March 31, with respiratory failure. He was unfortunately intubated on the same day. He remains on the mechanical ventilator. He is status post tracheostomy and PEG tube placement. Currently, he is on pressure regulated volume control, with a targeted tidal volume of 450, anion inspiratory time of 0.8 seconds. His respiratory rate is 20 his FiO2 is 40% PEEP is 5. He is much more synchronous with the ventilator. Blood gases show pO2 of 88, pCO2 of 61, and a pH is 7.37. The patient's Zosyn will be discontinued. He'll get Lasix 40 mg IV push. In addition, in an attempt to get him off the propofol, we added Dilaudid 1 mg every 2 hours when necessary, and Seroquel 50 mg 3 times a day. His norepinephrine is currently on hold. He is on propofol at 45 mcg/kg/m, and D5W at 75 mL an hour, which will be made KVO. Finally, he is getting Vital at 20 mL an hour, with a goal of 50. White count 8.5, hemoglobin 8.2, hematocrit 27.5, and platelet count 319,000. Sodium 139, potassium 4.6, chlorides 101, CO2 33, E1 31, and creatinine 0.67. Albumin is only 2.2. Sputum sampling from April 01 shows evidence of both Serratia marcescens and Haemophilus influenzae. Chest x-ray shows a midline tracheostomy, changes of COPD, and a left perihilar mass. Progress note dated 04/09/2022. 71-year-old male who was admitted to the hospital on March 31 with respiratory failure. He was unfortunately intubated on the same day. He remains on mechani babak ventilator. Because of failure to wean, he is status post tracheostomy and PEG tube placement. He is currently on pressure regulated volume control ventilation, with a targeted tidal volume of 450, and an inspiratory time of 0.8 seconds. In addition, his respiratory rate is 20, FiO2 is 40%, with a PEEP of 5. Blood gases show a PaO2 of 79, pCO2 of 63, and pH 7.37. He is getting Lasix 60 mg today IV push once. We have asked for a PICC line be placed, and he will have Dopplers of the upper extremities, ordered by his primary care physician. In addition, we'll check a pro-calcitonin level. He is getting saline at KVO, and lactated Ringer's at KVO, he is off propofol and norepinephrine. He is getting vital high protein at 40 mL an hour, with a goal of 50. White count 9, hemoglobin 8.3, hematocrit 27.1, with a platelet count of 303,000. Sodium is 140, potassium 4.6, chlorides 100, CO2 36, BUN 30, creatinine 0.6. Albumin is 2.2. Dopplers of the upper extremities bilaterally, are negative. Chest x-ray shows a left hilar mass, emphysematous changes, and some mild infiltrates. Objective - Vital Signs Vital signs: Vital Signs Temp 100.2 F H 04/09/22 04:00 Pulse 100 04/09/22 08:09 Resp 24 04/09/22 07:00 BP 114/67 04/08/22 18:30 Pulse Ox 98 04/09/22 07:00 FiO2 40 04/09/22 07:27 Intake & Output 04/08/22 04/09/22 04/09/22 18:59 06:59 18:59 Intake Total 248.993 791.093 49.123 Output Total 945 800 45 Balance -696.007 -8.907 4.123 Weight 89 kg Intake: IV 78 33 3 Dextrose 5% in Water 1, 75 000 ml @ 20 mls/hr IV . Q24H [facility] Rx#:[id number] pressure bag 3 33 3 Intake, IV Titration 170.993 228.093 6.123 Amount Norepinephrine 4 mg In 43.451 83.539 Sodium Chloride 0.9% 250 ml @ 0.05 MCG/KG/MIN 14. 63 mls/hr IV .[id number] N[facility] Rx#:[id number] propofoL 1,000 mg In 127.542 144.554 6.123 Empty Bag 1 bag @ 5 MCG/ KG/MIN 2.041 mls/hr IV . Q24H [facility]HA Rx#:[id number] Tube Feeding 440 40 Other 90 Output: Urine 945 800 45 Other: Voiding Method Indwelling Catheter Indwelling Catheter ABP, PAP, CO, CI - Last Documented Arterial Blood Pressure 139/55 - Exam No acute distress, currently on propofol, with a midline tracheostomy tube. HEENT examination is grossly unremarkable. Neck supple. Full range of motion. No adenopathy thyromegaly or neck vein distention. Cardiovascular examination reveals regular rhythm rate. S1-S2 normal. No S3 or S4. No discernible murmur noted. Heart sounds are distant. Heart rate 100 bpm. Lungs reveal scattered bilateral rhonchi. Breath sounds equal bilaterally wheezes. No crackles. Saturations 98 %. Abdomen soft bowel sounds are heard. No masses or tenderness. PEG tube noted. Extremities are intact. No cyanosis clubbing or edema. Skin is without rash or lesion. Neurologic examination cannot be properly assessed. - Labs CBC & Chem 7: 04/09/22 04:05 04/09/22 04:05 Labs: Abnormal Lab Results - Last 24 Hours (Table) 04/08/22 04/08/22 04/08/22 Range/Units 12:02 15:21 17:42 RBC (4.30-5.90) m/uL Hgb (13.0-17.5) gm/dL Hct (39.0-53.0) % MCHC (31.0-37.0) g/dL RDW (11.5-15.5) % Neutrophils # (1.3-7.7) k/uL Lymphocytes # (1.0-4.8) k/uL ABG pCO2 (35-45) mmHg ABG pO2 (83-108) mmHg ABG HCO3 (21-25) mmol/L ABG Total CO2 (19-24) mmol/L Carbon Dioxide (22-30) mmol/L BUN (9-20) mg/dL Creatinine (0.66-1.25) mg/dL Glucose (74-99) mg/dL POC Glucose (mg/dL) 179 H 161 H 155 H (70-110) mg/dL Total Bilirubin (0.2-1.3) mg/dL Alkaline Phosphatase (38-126) U/L Total Protein (6.3-8.2) g/dL Albumin (3.5-5.0) g/dL 04/08/22 04/09/22 04/09/22 Range/Units 21:40 00:27 04:05 RBC 2.71 L (4.30-5.90) m/uL Hgb 8.3 L (13.0-17.5) gm/dL Hct 27.1 L (39.0-53.0) % MCHC 30.7 L (31.0-37.0) g/dL RDW 21.5 H (11.5-15.5) % Neutrophils # 8.3 H (1.3-7.7) k/uL Lymphocytes # 0.3 L (1.0-4.8) k/uL ABG pCO2 (35-45) mmHg ABG pO2 (83-108) mmHg ABG HCO3 (21-25) mmol/L ABG Total CO2 (19-24) mmol/L Carbon Dioxide (22-30) mmol/L BUN (9-20) mg/dL Creatinine (0.66-1.25) mg/dL Glucose (74-99) mg/dL POC Glucose (mg/dL) 142 H 176 H (70-110) mg/dL Total Bilirubin (0.2-1.3) mg/dL Alkaline Phosphatase (38-126) U/L Total Protein (6.3-8.2) g/dL Albumin (3.5-5.0) g/dL 04/09/22 04/09/22 04/09/22 Range/Units 04:05 05:41 05:52 RBC (4.30-5.90) m/uL Hgb (13.0-17.5) gm/dL Hct (39.0-53.0) % MCHC (31.0-37.0) g/dL RDW (11.5-15.5) % Neutrophils # (1.3-7.7) k/uL Lymphocytes # (1.0-4.8) k/uL ABG pCO2 63 H (35-45) mmHg ABG pO2 79 L (83-108) mmHg ABG HCO3 37 H (21-25) mmol/L ABG Total CO2 38 H (19-24) mmol/L Carbon Dioxide 36 H (22-30) mmol/L BUN 30 H (9-20) mg/dL Creatinine 0.60 L (0.66-1.25) mg/dL Glucose 140 H (74-99) mg/dL POC Glucose (mg/dL) 171 H (70-110) mg/dL Total Bilirubin <0.1 L (0.2-1.3) mg/dL Alkaline Phosphatase 198 H (38-126) U/L Total Protein 4.7 L (6.3-8.2) g/dL Albumin 2.2 L (3.5-5.0) g/dL Assessment and Plan Assessment: Acute on chronic hypoxemic and hypercapnic respiratory failure, status post intubation and mechanical ventilation on 03/31/2022, status post tracheostomy and PEG tube placement 04/06/2022, for failure to wean from mechanical ventilation. Bilateral pneumonia and sepsis, secondary to Serratia and Haemophilus. Acute exacerbation of COPD. History of squamous cell lung cancer, diagnosed December 2021. Previous history of respiratory failure, requiring intubation, and subsequent tracheostomy. Generalized anxiety disorder. Severe/stage III/stage IV COPD, with an FEV1 that's 35%. Degenerative joint disease. Acute kidney injury. Plan: Plan dated 04/05/2022. The patient will proceed with a tracheostomy and PEG tube, as per the wishes of the and daughter. The patient on IV Zosyn, and other breathing treatments. The patient also remains on GI and DVT prophylaxis. No additional recommendations are made. I did mention to the , that the patient may end up at long-term acute care facility or specialized nursing facility. Prognosis is extremely poor. We'll continue with tube feeds. Norepinephrine has been weaned off. Labs, x-rays, medications are all reviewed. Plan dated 04/06/2022. I had a long conversation with the patient's yesterday about PEG tube placement and tracheostomy tube. She is in agreement. She understands that he has a very poor prognosis given his diagnosis of COPD and lung cancer. Nonethel ess, she does want to proceed with the PEG tube and the tracheostomy tube. Labs, x-rays, and medications are reviewed. Prognosis is poor. I did mention to her that he would likely end up at long-term acute care facility or specialized nursing facility after discharge from this institution. The patient remains on Zosyn. His saline IV is changed to D5 W because of hypernatremia. Plan dated 04/07/2022. The patient's ventilation will be changed to pressure regulated volume control. We will have a targeted tidal volume of 450, and a inspiratory time of 0.8 seconds. The patient remains on propofol, and norepinephrine. Tube feedings have not yet been restarted. He continues on Zosyn for Serratia and Haemophilus influenzae. The patient had a tracheostomy tube and PEG tube placed yesterday, April 06. Labs, x-rays, and medications are reviewed. Overall prognosis remains very poor. I did mention to the that he will probably end up in a long-term acute care center. Plan dated 04/08/2022. The patient's much more synchronous on the ventilator, and the pressure regulated volume control modality. Blood gases are stable. Labs, x-rays, and medications are all reviewed. The patient Zosyn will be discontinued today. He did receive 7 days. For his edema, he will get Lasix 40 mg IV push. We will attempt to get him off the propofol, by adding Dilaudid when necessary, and scheduled Seroquel. His D5W IV will be turned down to KVO. Norepinephrine is currently on hold. Overall prognosis remains very poor. The nursing staff is having difficulty with the patient's tracheostomy, because of scar tissue, from a previous tracheostomy. Plan dated 04/09/2022. Today, the patient's was updated. The patient will likely need to be transferred to a long-term acute care facility. To that end, the patient is no longer on norepinephrine or propofol. The patient is currently on Dilaudid when necessary, and Seroquel. Labs, x-rays, and medications are reviewed. Overall prognosis is very poor. The patient is status post tracheostomy and PEG tube placement. The patient was also recently diagnosed with lung cancer, and December of this year. We will continue to follow make recommendations along the way. Time with Patient: Greater than 30
--- NOTE | 2022-04-09 10:07 | P.PN ---
Subjective Progress Note Date: 04/09/22 CHIEF COMPLAINT: Respiratory failure HISTORY OF PRESENT ILLNESS: Patient remains in the ICU. He is status post tracheostomy and PEG tube placement on 04/06/22. Patient does have a cuff leak. Cuff leak worsens with movement. Patient is able to hold his volumes. Patient is tolerating his tube feedings. They are being titrated from 40-50 mL per hour. Last BM 04/07/2022. Patient did have fever 100.7 last night. WBC 9.0 HGB 8.3 PHYSICAL EXAM: VITAL SIGNS: Reviewed. GENERAL: Well-developed in no acute distress. HEENT: Tracheostomy site clean and dry and intact. Evidence of cuff leak ABDOMEN: Soft. Nondistended. Nontender. PEG tube site clean dry and intact NEUROLOGIC: intubated ASSESSMENT: 1. Severe protein calorie malnutrition 2. Acute respiratory failure requiring mechanical ventilation secondary to COPD, aspiration pneumonia and lung cancer 3. History of previous tracheostomy with scar tissue at the tracheostomy site likely contributing to patient's cuff leak PLAN: -Continue to monitor cuff leak -Continue to titrate tube feeds per dietitian recommendations -Continue ICU management and supportive care Physician Trainmaster note has been reviewed by physician. Signing provider agrees with the documented findings, assessment, and plan of care. I have personally seen and examined the patient, reviewed the [facility] /PAs history, exam and MDM and agree with the assessment and plan as written. Based on total visit time, I have performed more than 50% of the visit. As above: Patient doing better today. Sedation has been held. Air leak at tracheostomy is not causing any troubles with air volumes currently. He is tolerating tube feeds at goal. Abdomen is nontender. Objective - Vital Signs Vital signs: Vital Signs Temp 100.2 F H 04/09/22 04:00 Pulse 100 04/09/22 08:09 Resp 24 04/09/22 07:00 BP 114/67 04/08/22 18:30 Pulse Ox 98 04/09/22 07:00 FiO2 40 04/09/22 07:27 Intake & Output 04/08/22 04/09/22 04/09/22 18:59 06:59 18:59 Intake Total 248.993 791.093 49.123 Output Total 945 800 45 Balance -696.007 -8.907 4.123 Weight 89 kg Intake: IV 78 33 3 Dextrose 5% in Water 1, 75 000 ml @ 20 mls/hr IV . Q24H [facility] Rx#:[id number] pressure bag 3 33 3 Intake, IV Titration 170.993 228.093 6.123 Amount Norepinephrine 4 mg In 43.451 83.539 Sodium Chloride 0.9% 250 ml @ 0.05 MCG/KG/MIN 14. 63 mls/hr IV .[id number] [facility] Rx#:[id number] propofoL 1,000 mg In 127.542 144.554 6.123 Empty Bag 1 bag @ 5 MCG/ KG/MIN 2.041 mls/hr IV . Q24H [facility] Rx#:[id number] Tube Feeding 440 40 Other 90 Output: Urine 945 800 45 Other: Voiding Method Indwelling Catheter Indwelling Catheter ABP, PAP, CO, CI - Last Documented Arterial Blood Pressure 139/55 - Labs CBC & Chem 7: 04/09/22 04:05 04/09/22 04:05 Labs: Abnormal Lab Results - Last 24 Hours (Table) 04/08/22 04/08/22 04/08/22 Range/Units 12:02 15:21 17:42 RBC (4.30-5.90) m/uL Hgb (13.0-17.5) gm/dL Hct (39.0-53.0) % MCHC (31.0-37.0) g/dL RDW (11.5-15.5) % Neutrophils # (1.3-7.7) k/uL Lymphocytes # (1.0-4.8) k/uL ABG pCO2 (35-45) mmHg ABG pO2 (83-108) mmHg ABG HCO3 (21-25) mmol/L ABG Total CO2 (19-24) mmol/L Carbon Dioxide (22-30) mmol/L BUN (9-20) mg/dL Creatinine (0.66-1.25) mg/dL Glucose (74-99) mg/dL POC Glucose (mg/dL) 179 H 161 H 155 H (70-110) mg/dL Total Bilirubin (0.2-1.3) mg/dL Alkaline Phosphatase (38-126) U/L Total Protein (6.3-8.2) g/dL Albumin (3.5-5.0) g/dL 04/08/22 04/09/22 04/09/22 Range/Units 21:40 00:27 04:05 RBC 2.71 L (4.30-5.90) m/uL Hgb 8.3 L (13.0-17.5) gm/dL Hct 27.1 L (39.0-53.0) % MCHC 30.7 L (31.0-37.0) g/dL RDW 21.5 H (11.5-15.5) % Neutrophils # 8.3 H (1.3-7.7) k/uL Lymphocytes # 0.3 L (1.0-4.8) k/uL ABG pCO2 (35-45) mmHg ABG pO2 (83-108) mmHg ABG HCO3 (21-25) mmol/L ABG Total CO2 (19-24) mmol/L Carbon Dioxide (22-30) mmol/L BUN (9-20) mg/dL Creatinine (0.66-1.25) mg/dL Glucose (74-99) mg/dL POC Glucose (mg/dL) 142 H 176 H (70-110) mg/dL Total Bilirubin (0.2-1.3) mg/dL Alkaline Phosphatase (38-126) U/L Total Protein (6.3-8.2) g/dL Albumin (3.5-5.0) g/dL 04/09/22 04/09/22 04/09/22 Range/Units 04:05 05:41 05:52 RBC (4.30-5.90) m/uL Hgb (13.0-17.5) gm/dL Hct (39.0-53.0) % MCHC (31.0-37.0) g/dL RDW (11.5-15.5) % Neutrophils # (1.3-7.7) k/uL Lymphocytes # (1.0-4.8) k/uL ABG pCO2 63 H (35-45) mmHg ABG pO2 79 L (83-108) mmHg ABG HCO3 37 H (21-25) mmol/L ABG Total CO2 38 H (19-24) mmol/L Carbon Dioxide 36 H (22-30) mmol/L BUN 30 H (9-20) mg/dL Creatinine 0.60 L (0.66-1.25) mg/dL Glucose 140 H (74-99) mg/dL POC Glucose (mg/dL) 171 H (70-110) mg/dL Total Bilirubin <0.1 L (0.2-1.3) mg/dL Alkaline Phosphatase 198 H (38-126) U/L Total Protein 4.7 L (6.3-8.2) g/dL Albumin 2.2 L (3.5-5.0) g/dL
[2022-04-09 12:01] LABS: Glucose,Whole Blood 180 mg/dL (70-110)
[2022-04-09] MEDS ORDERED: LIDOCAINE 1% INJ 10MG/ML (30 ML VIAL-PF) SQ ONE (13:07)
--- NOTE | 2022-04-09 13:36 | XR ---
EXAMINATION TYPE: XR chest 1V portable DATE OF EXAM: 04/09/2022 COMPARISON: Chest x-ray same dated earlier time HISTORY: Status post PICC line placement TECHNIQUE: Single frontal view of the chest is obtained. FINDINGS: The entire chest is not included on exam. Patient is status post left-sided PICC line, distal tip is near the cavoatrial junction level. No akhil dent pneumothorax. IMPRESSION: No evident complication status post PICC line placement.
--- NOTE | 2022-04-09 13:40 | CDI ---
Documentation Clarification Form Date: 04/09/2022 11:46:27 AM From: Yamileth Avilez RN CCDS Admit Date: 03/31/2022 10:30:00 PM Patient Name: Anuj Marcum Visit Number: [id number] Discharge Date: ATTENTION: The Clinical Documentation Specialists (CDI) and [facility] Coding Staff appreciate your assistance in clarifying documentation. Please respond to the clarification below the line at the bottom and electronically sign. The CDI & [facility] Coding staff will review the response and follow-up if needed. Please note: Queries are made part of the Legal Health Record. If you have any questions, please contact the author of this message via ITS. Dr. Vinicius Dougherty Sepsis POA is documented CDI Query, 04/02, but is not noted in subsequent documentation. Clarification is requested. History/Risk Factors: 71-year-old male presents to the ED with weakness, worsening dyspnea has been feeling like something is stuck in his throat with Phlegm. Medical history: COPD and lung cancer last dose of chemotherapy and radiotherapy one week ago . H&P 04/01. Clinical Indicators: VSS: 04/02 B/P 175/94; Temp 97.6F Oral; HR 116; RR 26; SpO2 80% BiPAP. LABS: Wbc 8.2; Hgb 11.1; Chl 96; Carbon Dioxide 32; BUN 37; Glucose 147; Alk phos 173; Trop 0.083; 0.9093 0.096; BNP 1490 Query response 04/02: "possible Sepsis POA, been treated." Sputum Culture 04/01: Gram Neg Bacilli Intubated 04/01 on mechanical ventilator Treatment: 04/01 DuoNeb 0.5mg-3mg/3ml Inhalation RT QID NESHA; 04/01 Solu Cortef IV Q8HR; 04/01 Norepinephrine IV [id number]; 04/01 Zosyn IVPB Q8HR; 04/01 0.9NS 1L bolus Please clarify if the Sepsis is: [ x] Sepsis POA confirmed, remains under treatment [ ] Sepsis POA confirmed, resolved [ ] Other condition, please specify [ ] Unable to determine (Template Last Revised: October 2020) MTDD
--- NOTE | 2022-04-09 13:57 | IR ---
EXAMINATION TYPE: IR cvc insert >=5 years DATE OF EXAM: 04/09/2022 COMPARISON: NONE HISTORY: Lung mass, pneumonia, needs long-term intravenous access for therapy FINDINGS: Maximal barrier technique was utilized. Hand hygiene obtained with soap and water and alco hol-based hand rub. The skin overlying the left brachial vein was localized with ultrasound and noted to be compressible and patent by ultrasound. An ultrasound image was obtained and submitted on tito ent's chart. Sterile technique utilized with the ultrasound machine. The skin overlying was prepped a nd draped and Lidocaine used for local anesthesia. A skin smooth was made with a scalpel. Access was gained to the vein under direct ultrasound guidance with a 21-gauge needle and a 0.018 inch wire was advanced. Access site was dilated with a peel-away sheath and the catheter tailored to length. Cath eter advanced centrally and a post procedure chest x-ray verified placement with tip at the superior vena cava. Catheter was fixed to the skin and a sterile dressing placed. Hemostasis achieved and th e catheter was aspirated and flushed with sterile saline. The patient remained in stable condition. IMPRESSION: STATUS POST ULTRASOUND GUIDED PICC LINE PLACEMENT, READY FOR USE. THIS PROCEDURE WAS PER FORMED BY THE UNDERSIGNED.
[2022-04-09 18:47] LABS: Glucose,Whole Blood 173 mg/dL (70-110)
[2022-04-09] MEDS: ATORVASTATIN 10 MG TAB PO SCH (20:21)
[2022-04-09] MEDS: LATANOPROST 0.005% OPHTH DROPS 2.5 ML BTL BOTH EYES SCH (20:22)
[2022-04-09 23:37] LABS: Glucose,Whole Blood 174 mg/dL (70-110)
[2022-04-10] MEDS: NOREPINEPHRINE 4 MG in SODIUM CHLORIDE 0.9% 250 ML IV SCH ×2 (02:37→19:58)
[2022-04-10] MEDS: HYDROmorphone 1 MG/ML 1 ML SYRINGE IVP SCH ×11 (02:46→22:41)
[2022-04-10 03:47] LABS: Anisocytosis Moderate; HCT 26.9 % (39.0-53.0); HGB 8.1 gm/dL (13.0-17.5); Hypochromasia Marked; MCH 30.2 pg (25.0-35.0); MCHC 30.2 g/dL (31.0-37.0); MCV 100.1 fL (80.0-100.0); Macrocytosis Moderate; Mean Platelet Volume 8.3; Platelet Count 275 k/uL (150-450); RBC 2.69 m/uL (4.30-5.90); RDW 21.1 % (11.5-15.5); WBC 12.1 k/uL (3.8-10.6)
[2022-04-10 04:17] LABS: ALT 40 U/L (4-49); AST 33 U/L (17-59); African American GFR (CKD) >90 (>60 ml/min/1.73 sqM); Albumin 2.3 g/dL (3.5-5.0); Alkaline Phosphatase 197 U/L (38-126); Anion Gap 4 mmol/L; Blood Urea Nitrogen 35 mg/dL (9-20); Calcium 8.9 mg/dL (8.4-10.2); Carbon Dioxide 38 mmol/L (22-30); Chloride 98 mmol/L (98-107); Glucose 144 mg/dL (74-99); Non-African American GFR(CKD) >90 (>60 ml/min/1.73 sqM); Potassium 4.6 mmol/L (3.5-5.1); Sodium 140 mmol/L (137-145); Total Bilirubin <0.1 mg/dL (0.2-1.3); Total Protein 4.9 g/dL (6.3-8.2)
[2022-04-10 05:26] LABS: Glucose,Whole Blood 174 mg/dL (70-110)
[2022-04-10] MEDS: INSULIN ASPART (NovoLOG) 100 UNIT/ML VIAL SQ SCH ×6 (05:27→23:39)
[2022-04-10 06:04] LABS: ABG Base Excess 14.6 mmol/L; ABG Oxygen Saturation 95.9 % (94-97); ABG PCO2 65 mmHg (35-45); ABG PH 7.39 (7.35-7.45); ABG PO2 73 mmHg (83-108); ABG TCO2 42 mmol/L (19-24); Allen Test Performed? Yes
[2022-04-10 06:06] LABS: ABG HCO3 40 mmol/L (21-25); ABG Hematocrit 24 % (34.0-46.0)
[2022-04-10] MEDS: FORMOTEROL FUMARATE 20 MCG/2 ML NEBU INHALATION SCH ×2 (07:07→19:21)
[2022-04-10] MEDS: BUDESONIDE 1 MG/2 ML NEBU INHALATION SCH ×2 (07:07→19:21)
[2022-04-10] MEDS: IPRATROPIUM-ALBUTEROL 3 ML NEB INHALATION SCH ×4 (07:07→19:21)
[2022-04-10] MEDS ORDERED: FUROSEMIDE 10 MG/ML 10 ML VIAL IV STA (09:11)
[2022-04-10] MEDS: HEPARIN SODIUM,PORCINE/PF 5,000 UNIT/0.5 ML SYRINGE SQ SCH ×2 (09:25→20:51)
[2022-04-10] MEDS: CHLORHEXIDINE GLUCONATE 15 ML CUP MUCOUS MEM SCH ×2 (09:25→20:51)
[2022-04-10] MEDS: GABAPENTIN 300 MG CAP PO SCH ×3 (09:25→20:51)
[2022-04-10] MEDS: CHOLECALCIFEROL 25 MCG (1000 IU) TABLET PO SCH (09:25)
[2022-04-10] MEDS: ASPIRIN 81 MG PO SCH (09:25)
[2022-04-10] MEDS: QUEtiapine 50 MG TAB PO SCH ×3 (09:26→20:50)
[2022-04-10] MEDS: CLEVIDIPINE BUTYRATE 25 MG in EMPTY BAG 1 BAG IV SCH ×5 (09:38→19:37)
[2022-04-10] MEDS: PANTOPRAZOLE 40 MG/10 ML VIAL IVP SCH (09:38)
--- NOTE | 2022-04-10 11:02 | P.PN ---
Subjective Progress Note Date: 04/10/22 Principal diagnosis: Respiratory failure Patient remains on the ventilator. Patient's somewhat agitated. He is retaining is ventilatory volumes despite a small leak around the tracheostomy. Patient is tolerating tube feeds at goal. He did have a bowel movement. Objective - Vital Signs Vital signs: Vital Signs Temp 98.6 F 04/10/22 07:00 Pulse 105 H 04/10/22 10:59 Resp 20 04/10/22 09:30 BP 116/66 04/09/22 16:00 Pulse Ox 98 04/10/22 09:30 FiO2 40 04/10/22 10:54 Intake & Output 04/09/22 04/10/22 04/10/22 18:59 06:59 18:59 Intake Total 3153.414 6951.799 89.066 Output Total 1160 535 45 Balance -98.012 467.799 44.066 Weight 89 kg 82.1 kg Intake: IV 279 253 23 Dextrose 5% in Water 1, 240 220 20 000 ml @ 20 mls/hr IV . Q24H [facility] Rx#:[id number] pressure bag 39 33 3 Intake, IV Titration 32.988 19.799 3.066 Amount Clevidipine Butyrate 25 3.066 mg In Empty Bag 1 bag @ 1 MG/HR 2 mls/hr IV .Q24H [facility] Rx#:[id number] Norepinephrine 4 mg In 14.143 19.799 Sodium Chloride 0.9% 250 ml @ 0.05 MCG/KG/MIN 14. 63 mls/hr IV .[id number] [facility] Rx#:[id number] propofoL 1,000 mg In 18.845 Empty Bag 1 bag @ 5 MCG/ KG/MIN 2.041 mls/hr IV . Q24H [facility] Rx#:[id number] Tube Feeding 620 640 63 Other 130 90 Output: Urine 1160 535 45 Other: Voiding Method Indwelling Catheter Indwelling Catheter ABP, PAP, CO, CI - Last Documented Arterial Blood Pressure 186/61 - Exam Tracheostomy site and PEG tube catheter site clean and dry without evidence of infection or bleeding. - Labs CBC & Chem 7: 04/10/22 03:30 04/10/22 03:30 Labs: Abnormal Lab Results - Last 24 Hours (Table) 04/09/22 04/09/22 04/09/22 Range/Units 04:05 11:59 18:44 WBC (3.8-10.6) k/uL RBC (4.30-5.90) m/uL Hgb (13.0-17.5) gm/dL Hct (39.0-53.0) % MCV (80.0-100.0) fL MCHC (31.0-37.0) g/dL RDW (11.5-15.5) % ABG pCO2 (35-45) mmHg ABG pO2 (83-108) mmHg ABG HCO3 (21-25) mmol/L ABG Total CO2 (19-24) mmol/L ABG Hematocrit (34.0-46.0) % Hemoglobin (13.0-17.5) gm/dL Carbon Dioxide (22-30) mmol/L BUN (9-20) mg/dL Creatinine (0.66-1.25) mg/dL Glucose (74-99) mg/dL POC Glucose (mg/dL) 180 H 173 H (70-110) mg/dL Total Bilirubin (0.2-1.3) mg/dL Alkaline Phosphatase (38-126) U/L Total Protein (6.3-8.2) g/dL Albumin (3.5-5.0) g/dL Procalcitonin 0.22 H (0.02-0.09) ng/mL 04/09/22 04/10/22 04/10/22 Range/Units 23:34 03:30 03:30 WBC 12.1 H (3.8-10.6) k/uL RBC 2.69 L (4.30-5.90) m/uL Hgb 8.1 L (13.0-17.5) gm/dL Hct 26.9 L (39.0-53.0) % MCV 100.1 H (80.0-100.0) fL MCHC 30.2 L (31.0-37.0) g/dL RDW 21.1 H (11.5-15.5) % ABG pCO2 (35-45) mmHg ABG pO2 (83-108) mmHg ABG HCO3 (21-25) mmol/L ABG Total CO2 (19-24) mmol/L ABG Hematocrit (34.0-46.0) % Hemoglobin (13.0-17.5) gm/dL Carbon Dioxide 38 H (22-30) mmol/L BUN 35 H (9-20) mg/dL Creatinine 0.65 L (0.66-1.25) mg/dL Glucose 144 H (74-99) mg/dL POC Glucose (mg/dL) 174 H (70-110) mg/dL Total Bilirubin <0.1 L (0.2-1.3) mg/dL Alkaline Phosphatase 197 H (38-126) U/L Total Protein 4.9 L (6.3-8.2) g/dL Albumin 2.3 L (3.5-5.0) g/dL Procalcitonin (0.02-0.09) ng/mL 04/10/22 04/10/22 Range/Units 05:24 05:59 WBC (3.8-10.6) k/uL RBC (4.30-5.90) m/uL Hgb (13.0-17.5) gm/dL Hct (39.0-53.0) % MCV (80.0-100.0) fL MCHC (31.0-37.0) g/dL RDW (11.5-15.5) % ABG pCO2 65 H (35-45) mmHg ABG pO2 73 L (83-108) mmHg ABG HCO3 40 H* (21-25) mmol/L ABG Total CO2 42 H (19-24) mmol/L ABG Hematocrit 24 L (34.0-46.0) % Hemoglobin 7.9 L (13.0-17.5) gm/dL Carbon Dioxide (22-30) mmol/L BUN (9-20) mg/dL Creatinine (0.66-1.25) mg/dL Glucose (74-99) mg/dL POC Glucose (mg/dL) 174 H (70-110) mg/dL Total Bilirubin (0.2-1.3) mg/dL Alkaline Phosphatase (38-126) U/L Total Protein (6.3-8.2) g/dL Albumin (3.5-5.0) g/dL Procalcitonin (0.02-0.09) ng/mL Assessment and Plan (1) Acute respiratory failure Narrative/Plan: Patient doing well at this time. Continue pulmonary care management in the ICU. Continue tube feeds at goal. Dr. Lu will resume coverage on Tuesday. Current Visit: No Status: Acute Code(s): J96.00 - ACUTE RESPIRATORY FAILURE, UNSP W HYPOXIA OR HYPERCAPNIA SNOMED Code(s): 65330737
--- NOTE | 2022-04-10 11:07 | P.PN ---
Subjective Progress Note Date: 04/10/22 Principal diagnosis: Respiratory failure. Reevaluated today on 04/03/22, patient remains in the ICU intubated and mechanically ventilated. He is now on assist control rate of 20 to volume 450 FiO2 35% and PEEP of 5. Peak airway pressure is 35. His ABG showed a pO2 of 106 pCO2 56 pH of 7.34. Patient remains on 35% FiO2. Patient is off norepinephrine he remains on normal saline at 50 mL an hour and on propofol at 50 mcg/kg/m. Patient is receiving vital Hp at 50 mL/h the goal is 50. On physical examination continues to have rhonchi and wheezes bilaterally chest x- rays showing slight improvement in his bilateral infiltrates. Left hilar mass remains the same. Hence I have no plans to wean the patient today, and the family has made a decision that the patient does not wean in the next few days, they would like him to proceed with tracheostomy and PEG tube placement and eventual placement. We will decide this early next week in the meantime patient is not related to believe that extubated. CBC is relatively unremarkable WBC 7.3 hemoglobin is 8.8, basic metabolic profile is relatively normal, BUN is 67 creatinine is 1.36 hence we will increase his IV fluid to 75 mL Reevaluated today on 04/04/22, patient remains in the ICU, intubated and mechanically ventilated. Not much of a environmental change analyst the last 24 hours, patient remains on assist control rate of 20 to volume 450 FiO2 35% and PEEP of 5. ABG showed a pO2 of 69 pCO2 of 67 pH of 7.29. Hence we'll increase his rate to 24. Patient remains on propofol at 50 mcg/kg/m, IV fluid 0.9 normal saline at 75 mL per hour. He is receiving vital HP at 50 mL per hour/cor. His sputum is coming back positive for Serratia and Haemophilus influenza both are covered with Zosyn. Patient has been on Zosyn all along. Patient is sedated however I will try to awaken the patient today, and assess mental status. On physical examination he continues to have tightness and wheezing and I don't believe the patient is ready to have any weaning trials again. Today I even discussed the situation all over with the family about possible tracheostomy PEG tube placement PICC line placement and eventual placement and a ventilator facility. I also discussed the option of comfort care measures. Family seems to be inclin ed to proceed with tracheostomy and PEG tube placement as well as PICC line placement and eventual transfer to a ventilator facility/selective care specialty. Prognosis is obviously very poor, and the family is very well aware that the patient has poor prognosis with severe end-stage COPD and bronchogenic carcinoma. WBC count is 8.8 hemoglobin is 9.7, basic metabolic profile is normal BUN is 60 creatinine 0.68. For some reason a CT angio the chest was ordered yesterday, no evidence of pulmonary embolism clinically I never thought that the patient had pulmonary embolism and the clinical presentation is not a presentation of pulmonary embolism. Progress note dated 04/05/2022. 71-year-old male admitted to the hospital on March 31, with respiratory failure. He was intubated on the same day. He remains on mechanical ventilator. I spoke to his and daughter today. They will agree to tracheostomy and PEG tube placement. This was apparently discussed by my partner with the family yesterday, who knows the patient well, and who has been taking care of this patient for over 20 years. Currently, he remains on the volume assist control, rate 20, tidal volume 450, FiO2 35%, and PEEP of 5. Arterial blood gases show pO2 of 69, pCO2 of 69, and pH is 7.28. The patient remains on propofol at 35 mcg/m, saline at 75 mL an hour, and vital high protein at 50 mL an hour, with a goal of 50 mL an hour. Norepinephrine has been weaned off and the patient remains on Zosyn. White count 11.8, hemoglobin 9.9, hematocrit 33, platelet count 439,000. Sodium 146, potassium 4.9, chlorides 108, CO2 32, BUN 52, creatinine 0.64. Sputum samples from April 01 positive for Serratia, and Haemophilus. Chest x-ray is essentially unchanged. Progress note dated 04/06/2022 71-year-old male admitted to the hospital on March 31, with respiratory failure. He was intubated on the same day. He remains on mechanical ventilator. The patient is to have a tracheostomy tube and PEG tube placed today. He is currently on volume assist control, rate 20, tidal volume 450, FiO2 40%, and PEEP of 5. Blood gases show pO2 of 91, pCO2 of 65, and pH is 7.33. The patient is currently on propofol at 40 mcg/kg/m, and saline at 75 mL an hour. Tube feedings on hold in anticipation of the surgical procedure today. White count 11.4, hemoglobin 9.4, hematocrit 31.6, and platelet count 460,000. Sodium 148, potassium 4.6, chlorides 109, CO2 30, anion gap 7, BUN 47, and creatinine 0.71. Chest x-ray shows some diffuse bilateral infiltrates, and is essentially unchanged. Progress note dated 04/07/2022. 71-year-old male admitted to the hospital on March 31, with respiratory failure. He was intubated on the same day. He remains on the mechanical ventilator. Yesterday, he had a tracheostomy tube and a PEG tube placed by surgery. The patient is on volume assist control, rate 20, tidal volume 450, FiO2 40%, and PEEP of 5. Blood gases show a PaO2 of 86, pCO2 of 68, and pH 7.31. He is somewhat dyssynchronous with the ventilator, so we will switch him to pressure regulated volume control or VC plus with a targeted tidal volume of 450, inspiratory time of 0.8 seconds. He's currently on propofol at 25 mcg/kg/m, norepinephrine at 0.07 mcg/kg/m, lactated Ringer's at 10 mL an hour, and D5W at 75 mL an hour. Tube feedings have not yet been restarted. White count 10.5, hemoglobin 8.7, hematocrit 28.6, and platelet count 355,000. Sodium 143, potassium 4.6, chloride 106, CO2 33, BUN 32, and creatinine 0.72. Albumin is 2.3. Sputum from April 01 showed both Serratia marcescens and Haemophilus influenzae. No chest x-ray she had today. Progress note dated 04/08/2022. 71-year-old male who was admitted to the hospital on March 31, with respiratory failure. He was unfortunately intubated on the same day. He remains on the mechanical ventilator. He is status post tracheostomy and PEG tube placement. Currently, he is on pressure regulated volume control, with a targeted tidal volume of 450, anion inspiratory time of 0.8 seconds. His respiratory rate is 20 his FiO2 is 40% PEEP is 5. He is much more synchronous with the ventilator. Blood gases show pO2 of 88, pCO2 of 61, and a pH is 7.37. The patient's Zosyn will be discontinued. He'll get Lasix 40 mg IV push. In addition, in an attempt to get him off the propofol, we added Dilaudid 1 mg every 2 hours when necessary, and Seroquel 50 mg 3 times a day. His norepinephrine is currently on hold. He is on propofol at 45 mcg/kg/m, and D5W at 75 mL an hour, which will be made KVO. Finally, he is getting Vital at 20 mL an hour, with a goal of 50. White count 8.5, hemoglobin 8.2, hematocrit 27.5, and platelet count 319,000. Sodium 139, potassium 4.6, chlorides 101, CO2 33, E1 31, and creatinine 0.67. Albumin is only 2.2. Sputum sampling from April 01 shows evidence of both Serratia marcescens and Haemophilus influenzae. Chest x-ray shows a midline tracheostomy, changes of COPD, and a left perihilar mass. Progress note dated 04/09/2022. 71-year-old male who was admitted to the hospital on March 31 with respiratory failure. He was unfortunately intubated on the same day. He remains on mechani babak ventilator. Because of failure to wean, he is status post tracheostomy and PEG tube placement. He is currently on pressure regulated volume control ventilation, with a targeted tidal volume of 450, and an inspiratory time of 0.8 seconds. In addition, his respiratory rate is 20, FiO2 is 40%, with a PEEP of 5. Blood gases show a PaO2 of 79, pCO2 of 63, and pH 7.37. He is getting Lasix 60 mg today IV push once. We have asked for a PICC line be placed, and he will have Dopplers of the upper extremities, ordered by his primary care physician. In addition, we'll check a pro-calcitonin level. He is getting saline at KVO, and lactated Ringer's at KVO, he is off propofol and norepinephrine. He is getting vital high protein at 40 mL an hour, with a goal of 50. White count 9, hemoglobin 8.3, hematocrit 27.1, with a platelet count of 303,000. Sodium is 140, potassium 4.6, chlorides 100, CO2 36, BUN 30, creatinine 0.6. Albumin is 2.2. Dopplers of the upper extremities bilaterally, are negative. Chest x-ray shows a left hilar mass, emphysematous changes, and some mild infiltrates. Progress note dated 04/10/2022. 71-year-old male who was admitted to the hospital on March 31, with respiratory failure. Unfortunately, the patient was intubated on the same day remains on the mechanical ventilator. Because of failure to wean, he is status post tracheostomy and PEG tube placement. He is currently on pressure regulated volume control ventilation, with a targeted tidal volume 450, and inspiratory time of 0.08 seconds. The patient's FiO2 is 40%, rate is 20, and PEEP of 5. Blood gases show pO2 73, pCO2 of 65 the normal pH is 7.39. Lactated Ringer's at 20 mL an hour. Norepinephrine M propofol have been weaned off. We DC'd the triple-lumen catheter. The patient does have a PICC line in. The patient will get Lasix 60 mg IV push today. Labs today include a white count 12.1, hemoglobin 8.1, hematocrit 26.9, and platelet count 275,000. Sodium is 140, potassium 4.6, chloride 98, CO2 38, BUN 35, and creatinine 0.65. Albumin is 2.3. Chest x-ray is unchanged. Objective - Vital Signs Vital signs: Vital Signs Temp 98.6 F 04/10/22 07:00 Pulse 105 H 04/10/22 10:59 Resp 20 04/10/22 09:30 BP 116/66 04/09/22 16:00 Pulse Ox 98 04/10/22 09:30 FiO2 40 04/10/22 10:54 Intake & Output 04/09/22 04/10/22 04/10/22 18:59 06:59 18:59 Intake Total 5341.854 9566.799 89.066 Output Total 1160 535 45 Balance -98.012 467.799 44.066 Weight 89 kg 82.1 kg Intake: IV 279 253 23 Dextrose 5% in Water 1, 240 220 20 000 ml @ 20 mls/hr IV . [facility]H [facility] Rx#:[id number] pressure bag 39 33 3 Intake, IV Titration 32.988 19.799 3.066 Amount Clevidipine Butyrate 25 3.066 mg In Empty Bag 1 bag @ 1 MG/HR 2 mls/hr IV .Q24H [facility] Rx#:[id number] Norepinephrine 4 mg In 14.143 19.799 Sodium Chloride 0.9% 250 ml @ 0.05 MCG/KG/MIN 14. 63 mls/hr IV .[id number] [facility] Rx#:[id number] propofoL 1,000 mg In 18.845 Empty Bag 1 bag @ 5 MCG/ KG/MIN 2.041 mls/hr IV . Q24H [facility] Rx#:[id number] Tube Feeding 620 640 63 Other 130 90 Output: Urine 1160 535 45 Other: Voiding Method Indwelling Catheter Indwelling Catheter ABP, PAP, CO, CI - Last Documented Arterial Blood Pressure 186/61 - Exam No acute distress, currently on propofol, with a midline tracheostomy tube. HEENT examination is grossly unremarkable. Neck supple. Full range of motion. No adenopathy thyromegaly or neck vein dist ention. Cardiovascular examination reveals regular rhythm rate. S1-S2 normal. No S3 or S4. No discernible murmur noted. Heart sounds are distant. Heart rate 99 bpm. Lungs reveal scattered bilateral rhonchi. Breath sounds equal bilaterally wheezes. No crackles. Saturations are 98%. Abdomen soft bowel sounds are heard. No masses or tenderness. PEG tube noted. Extremities are intact. No cyanosis clubbing or edema. Skin is without rash or lesion. Neurologic examination cannot be properly assessed. - Labs CBC & Chem 7: 04/10/22 03:30 04/10/22 03:30 Labs: Abnormal Lab Results - Last 24 Hours (Table) 04/09/22 04/09/22 04/09/22 Range/Units 04:05 11:59 18:44 WBC (3.8-10.6) k/uL RBC (4.30-5.90) m/uL Hgb (13.0-17.5) gm/dL Hct (39.0-53.0) % MCV (80.0-100.0) fL MCHC (31.0-37.0) g/dL RDW (11.5-15.5) % ABG pCO2 (35-45) mmHg ABG pO2 (83-108) mmHg ABG HCO3 (21-25) mmol/L ABG Total CO2 (19-24) mmol/L ABG Hematocrit (34.0-46.0) % Hemoglobin (13.0-17.5) gm/dL Carbon Dioxide (22-30) mmol/L BUN (9-20) mg/dL Creatinine (0.66-1.25) mg/dL Glucose (74-99) mg/dL POC Glucose (mg/dL) 180 H 173 H (70-110) mg/dL Total Bilirubin (0.2-1.3) mg/dL Alkaline Phosphatase (38-126) U/L Total Protein (6.3-8.2) g/dL Albumin (3.5-5.0) g/dL Procalcitonin 0.22 H (0.02-0.09) ng/mL 04/09/22 04/10/22 04/10/22 Range/Units 23:34 03:30 03:30 WBC 12.1 H (3.8-10.6) k/uL RBC 2.69 L (4.30-5.90) m/uL Hgb 8.1 L (13.0-17.5) gm/dL Hct 26.9 L (39.0-53.0) % MCV 100.1 H (80.0-100.0) fL MCHC 30.2 L (31.0-37.0) g/dL RDW 21.1 H (11.5-15.5) % ABG pCO2 (35-45) mmHg ABG pO2 (83-108) mmHg ABG HCO3 (21-25) mmol/L ABG Total CO2 (19-24) mmol/L ABG Hematocrit (34.0-46.0) % Hemoglobin (13.0-17.5) gm/dL Carbon Dioxide 38 H (22-30) mmol/L BUN 35 H (9-20) mg/dL Creatinine 0.65 L (0.66-1.25) mg/dL Glucose 144 H (74-99) mg/dL POC Glucose (mg/dL) 174 H (70-110) mg/dL Total Bilirubin <0.1 L (0.2-1.3) mg/dL Alkaline Phosphatase 197 H (38-126) U/L Total Protein 4.9 L (6.3-8.2) g/dL Albumin 2.3 L (3.5-5.0) g/dL Procalcitonin (0.02-0.09) ng/mL 04/10/22 04/10/22 Range/Units 05:24 05:59 WBC (3.8-10.6) k/uL RBC (4.30-5.90) m/uL Hgb (13.0-17.5) gm/dL Hct (39.0-53.0) % MCV (80.0-100.0) fL MCHC (31.0-37.0) g/dL RDW (11.5-15.5) % ABG pCO2 65 H (35-45) mmHg ABG pO2 73 L (83-108) mmHg ABG HCO3 40 H* (21-25) mmol/L ABG Total CO2 42 H (19-24) mmol/L ABG Hematocrit 24 L (34.0-46.0) % Hemoglobin 7.9 L (13.0-17.5) gm/dL Carbon Dioxide (22-30) mmol/L BUN (9-20) mg/dL Creatinine (0.66-1.25) mg/dL Glucose (74-99) mg/dL POC Glucose (mg/dL) 174 H (70-110) mg/dL Total Bilirubin (0.2-1.3) mg/dL Alkaline Phosphatase (38-126) U/L Total Protein (6.3-8.2) g/dL Albumin (3.5-5.0) g/dL Procalcitonin (0.02-0.09) ng/mL Assessment and Plan Assessment: Acute on chronic hypoxemic and hypercapnic respiratory failure, status post intubation and mechanical ventilation on 03/31/2022, status post tracheostomy and PEG tube placement 04/06/2022, for failure to wean from mechanical ventilation. Bilateral pneumonia and sepsis, secondary to Serratia and Haemophilus. Acute exacerbation of COPD. History of squamous cell lung cancer, diagnosed December 2021. Previous history of respiratory failure, requiring intubation, and subsequent tracheostomy. Generalized anxiety disorder. Severe/stage III/stage IV COPD, with an FEV1 that's 35%. Degenerative joint disease. Acute kidney injury. Plan: Plan dated 04/05/2022. The patient will proceed with a tracheostomy and PEG tube, as per the wishes of the and daughter. The patient on IV Zosyn, and other breathing treatments. The patient also remains on GI and DVT prophylaxis. No additional recommendations are made. I did mention to the , that the patient may end up at long-term acute care facility or specialized nursing facility. Prognosis is extremely poor. We'll continue with tube feeds. Norepinephrine has been weaned off. Labs, x-rays, medications are all reviewed. Plan dated 04/06/2022. I had a long conversation with the patient's yesterday about PEG tube placement and tracheostomy tube. She is in agreement. She understands that he has a very poor prognosis given his diagnosis of COPD and lung cancer. Nonetheless, she does want to proceed with the PEG tube and the tracheostomy tube. Labs, x-rays, and medications are reviewed. Prognosis is poor. I did mention to her that he would likely end up at long-term acute care facility or specialized nursing facility after discharge from this institution. The patient remains on Zosyn. His saline IV is changed to D5 W because of hypernatremia. Plan dated 04/07/2022. The patient's ventilation will be changed to pressure regulated volume control. We will have a targeted tidal volume of 450, and a inspiratory time of 0.8 seconds. The patient remains on propofol, and norepinephrine. Tube feedings have not yet been restarted. He continues on Zosyn for Serratia and Haemophilus influenzae. The patient had a tracheostomy tube and PEG tube placed yesterday, April 06. Labs, x-rays, and medications are reviewed. Overall prognosis remains very poor. I did mention to the that he will probably end up in a long-term acute care center. Plan dated 04/08/2022. The patient's much more synchronous on the ventilator, and the pressure regulated volume control modality. Blood gases are stable. Labs, x-rays, and medications are all reviewed. The patient Zosyn will be discontinued today. He did receive 7 days. For his edema, he will get Lasix 40 mg IV push. We will attempt to get him off the propofol, by adding Dilaudid when necessary, and scheduled Seroquel. His D5W IV will be turned down to KVO. Norepinephrine is currently on hold. Overall prognosis remains very poor. The nursing staff is having difficulty with the patient's tracheostomy, because of scar tissue, from a previous tracheostomy. Plan dated 04/09/2022. Today, the patient's was updated. The patient will likely need to be transferred to a long-term acute care facility. To that end, the patient is no longer on norepinephrine or propofol. The patient is currently on Dilaudid when necessary, and Seroquel. Labs, x-rays, and medications are reviewed. Overall prognosis is very poor. The patient is status post tracheostomy and PEG tube placement. The patient was also recently diagnosed with lung cancer, and December of this year. We will continue to follow make recommendations along the way. Plan dated 04/10/2022. The patient is doing about the same. He remains on the mechanical ventilator. He will get Lasix 60 mg IV push today. Today we discontinue the triple lumen catheter in the inguinal area, and we will culture the tip. Blood gases are reasonable on pressure regulated volume control ventilation. The patient is been weaned off norepinephrine, and he is no longer on propofol, because we've added Dilaudid, and Seroquel. We will continue to follow make recommendations. The plan is to get the patient to a specialized nursing facility or long-term acute care. Prognosis is certainly very guarded. Labs, x-rays, and medications are all reviewed. Time with Patient: Greater than 30
[2022-04-10 12:17] LABS: Glucose,Whole Blood 187 mg/dL (70-110)
--- NOTE | 2022-04-10 18:43 | P.PN ---
Subjective Progress Note Date: 04/10/22 This is a 71 year old male, patient of Dr Dougherty. Patient is monitored in the intensive care unit, intubated currently with FiO2 of 60%, maintaining oxygen saturation of 91%. Patient was started on cleviprex gtt today as his blood pressure was elevated up in the 200s systolic. It has improved to 139/47. Triple lumen catheter has been DC'd and tip sent for culture, patient did receive a PICC Line today. Currently receiving enteral tube feedings through PEG and tolerating well, patient did have BM. Labs today showing white count 12.1, hgb 8.1, sodium 140, potassium 4.6, BUN 35, creatinine 0.65, glucose in the 180s today. Received a one time dose of 60 IV lasix today. Afebrile, heart rate in the 100's, blood pressure 144/50, temperature 97.8, heart rate 100, blood pressure 144/50. Review of Systems Constitutional: Denied any fatigue denied any fever. Cardio vascular: denied any chest pain, palpitations Gastrointestinal: denied any nausea, vomiting, diarrhea Pulmonary: Denied any shortness of breath cough Neurologic denied any new focal deficits All inpatient medications were reviewed and appropriate changes in these medications as dictated in the interval history and assessment and plan. PHYSICAL EXAMINATION: GENERAL: The patient is alert and oriented x3, not in any acute distress. Well developed, well nourished. HEENT: Pupils are round and equally reacting to light. EOMI. No scleral icterus. No conjunctival pallor. Normocephalic, atraumatic. No pharyngeal erythema. No thyromegaly. CARDIOVASCULAR: S1 and S2 present. No murmurs, rubs, or gallops. PULMONARY: Chest is clear to auscultation, no wheezing or crackles. ABDOMEN: Soft, nontender, nondistended, normoactive bowel sounds. No palpable organomegaly. MUSCULOSKELETAL: No joint swelling or deformity. EXTREMITIES: No cyanosis, clubbing, or pedal edema. NEUROLOGICAL: Gross neurological examination did not reveal any focal deficits. SKIN: No rashes. 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, recent diagnosis Acute Kidney injury Elevated D Dimer with CTA negative for PE History COPD, oxygen dependent History hyperlipidemia History pneumonia requiring intubation/trach in 2018 Peripheral neuropathy Former nicotine dependence GI Prophylaxis DVT Prophylaxis Full Code Plan Continue close monitoring in intensive care unit Continues on mechical Ventilator Patient has been weaned off levophed/propofol maintaining blood pressures Patient continues on cleviprex gtt Check LDH/CRP Repeat labs in AM The impression and plan of care has been dictated by fArica Love, Nurse Practitioner as directed. Dr. Sanchez MD I have performed a history and physical examination and medical decision making of this patient, discussed the same with the dictator, and agree with the dictators assessment and plan as written, documented as a scribe. Based on total visit time, I have performed more than 50% of this visit. Objective - Vital Signs Vital signs: Vital Signs Temp 98.0 F 04/10/22 12:00 Pulse 100 04/10/22 15:36 Resp 20 04/10/22 13:00 BP 116/66 04/09/22 16:00 Pulse Ox 91 L 04/10/22 13:00 FiO2 60 04/10/22 15:09 Intake & Output 04/09/22 04/10/22 04/10/22 18:59 06:59 18:59 Intake Total 2679.621 0183.799 877.066 Output Total 1160 535 920 Balance -98.012 467.799 -42.934 Weight 89 kg 82.1 kg Intake: IV 279 253 184 Dextrose 5% in Water 1, 240 220 20 000 ml @ 20 mls/hr IV . Q24H [facility] Rx#:[id number] Lactated ringers 140 pressure bag 39 33 24 Intake, IV Titration 32.988 19.799 129.066 Amount Clevidipine Butyrate 25 129.066 mg In Empty Bag 1 bag @ 1 MG/HR 2 mls/hr IV .Q24H [facility] Rx#:[id number] Norepinephrine 4 mg In 14.143 19.799 Sodium Chloride 0.9% 250 ml @ 0.05 MCG/KG/MIN 14. 63 mls/hr IV .[id number] [facility] Rx#:[id number] propofoL 1,000 mg In 18.845 Empty Bag 1 bag @ 5 MCG/ KG/MIN 2.041 mls/hr IV . Q24H [facility] Rx#:[id number] Tube Feeding 620 640 504 Other 130 90 60 Output: Urine 1160 535 920 Other: Voiding Method Indwelling Catheter Indwelling Catheter Indwelling Catheter ABP, PAP, CO, CI - Last Documented Arterial Blood Pressure 139/47 - Labs CBC & Chem 7: 04/10/22 03:30 04/10/22 03:30 Labs: Abnormal Lab Results - Last 24 Hours (Table) 04/09/22 04/09/22 04/10/22 Range/Units 18:44 23:34 03:30 WBC 12.1 H (3.8-10.6) k/uL RBC 2.69 L (4.30-5.90) m/uL Hgb 8.1 L (13.0-17.5) gm/dL Hct 26.9 L (39.0-53.0) % MCV 100.1 H (80.0-100.0) fL MCHC 30.2 L (31.0-37.0) g/dL RDW 21.1 H (11.5-15.5) % ABG pCO2 (35-45) mmHg ABG pO2 (83-108) mmHg ABG HCO3 (21-25) mmol/L ABG Total CO2 (19-24) mmol/L ABG Hematocrit (34.0-46.0) % Hemoglobin (13.0-17.5) gm/dL Carbon Dioxide (22-30) mmol/L BUN (9-20) mg/dL Creatinine (0.66-1.25) mg/dL Glucose (74-99) mg/dL POC Glucose (mg/dL) 173 H 174 H (70-110) mg/dL Total Bilirubin (0.2-1.3) mg/dL Alkaline Phosphatase (38-126) U/L Total Protein (6.3-8.2) g/dL Albumin (3.5-5.0) g/dL Coronavirus (PCR) (Not Detectd) 04/10/22 04/10/22 04/10/22 Range/Units 03:30 05:24 05:59 WBC (3.8-10.6) k/uL RBC (4.30-5.90) m/uL Hgb (13.0-17.5) gm/dL Hct (39.0-53.0) % MCV (80.0-100.0) fL MCHC (31.0-37.0) g/dL RDW (11.5-15.5) % ABG pCO2 65 H (35-45) mmHg ABG pO2 73 L (83-108) mmHg ABG HCO3 40 H* (21-25) mmol/L ABG Total CO2 42 H (19-24) mmol/L ABG Hematocrit 24 L (34.0-46.0) % Hemoglobin 7.9 L (13.0-17.5) gm/dL Carbon Dioxide 38 H (22-30) mmol/L BUN 35 H (9-20) mg/dL Creatinine 0.65 L (0.66-1.25) mg/dL Glucose 144 H (74-99) mg/dL POC Glucose (mg/dL) 174 H (70-110) mg/dL Total Bilirubin <0.1 L (0.2-1.3) mg/dL Alkaline Phosphatase 197 H (38-126) U/L Total Protein 4.9 L (6.3-8.2) g/dL Albumin 2.3 L (3.5-5.0) g/dL Coronavirus (PCR) (Not Detectd) 04/10/22 04/10/22 Range/Units 12:07 12:15 WBC (3.8-10.6) k/uL RBC (4.30-5.90) m/uL Hgb (13.0-17.5) gm/dL Hct (39.0-53.0) % MCV (80.0-100.0) fL MCHC (31.0-37.0) g/dL RDW (11.5-15.5) % ABG pCO2 (35-45) mmHg ABG pO2 (83-108) mmHg ABG HCO3 (21-25) mmol/L ABG Total CO2 (19-24) mmol/L ABG Hematocrit (34.0-46.0) % Hemoglobin (13.0-17.5) gm/dL Carbon Dioxide (22-30) mmol/L BUN (9-20) mg/dL Creatinine (0.66-1.25) mg/dL Glucose (74-99) mg/dL POC Glucose (mg/dL) 187 H (70-110) mg/dL Total Bilirubin (0.2-1.3) mg/dL Alkaline Phosphatase (38-126) U/L Total Protein (6.3-8.2) g/dL Albumin (3.5-5.0) g/dL Coronavirus (PCR) Detected A (Not Detectd) Microbiology - Last 24 Hours (Table) 04/10/22 09:19 Catheter Tip Culture - Preliminary Catheter Tip Assessment and Plan Time with Patient: Less than 30
[2022-04-10 18:54] LABS: Glucose,Whole Blood 199 mg/dL (70-110)
[2022-04-10 19:57] LABS: C Reactive Protein 20.3 mg/dL (<1.0)
[2022-04-10] MEDS: LATANOPROST 0.005% OPHTH DROPS 2.5 ML BTL BOTH EYES SCH (20:51)
[2022-04-10] MEDS: ATORVASTATIN 10 MG TAB PO SCH (20:51)
[2022-04-10] MEDS: DEXTROSE 5% IN WATER 1,000 ML IV SCH (20:52)
[2022-04-10 23:31] LABS: Glucose,Whole Blood 155 mg/dL (70-110)
[2022-04-11] MEDS: HYDROmorphone 1 MG/ML 1 ML SYRINGE IVP SCH ×12 (01:58→21:59)
[2022-04-11 03:54] LABS: Anisocytosis Moderate; Basophils % (A) 0 %; Eosinophils % (A) 0 %; HGB 7.6 gm/dL (13.0-17.5); Hypochromasia Marked; Lymphocytes # (A) 0.4 k/uL (1.0-4.8); Lymphocytes % (A) 3 %; MCH 29.6 pg (25.0-35.0); MCHC 29.3 g/dL (31.0-37.0); MCV 101.1 fL (80.0-100.0); Macrocytosis Moderate; Monocytes # (A) 0.4 k/uL (0-1.0); Monocytes % (A) 4 %; Neutrophils # (A) 10.4 k/uL (1.3-7.7); Neutrophils % (A) 92 %; Platelet Count 277 k/uL (150-450); RBC 2.57 m/uL (4.30-5.90); RDW 20.7 % (11.5-15.5); WBC 11.3 k/uL (3.8-10.6)
[2022-04-11 04:07] LABS: African American GFR (CKD) >90 (>60 ml/min/1.73 sqM); Blood Urea Nitrogen 38 mg/dL (9-20); Calcium 8.8 mg/dL (8.4-10.2); Chloride 98 mmol/L (98-107); Glucose 135 mg/dL (74-99); Non-African American GFR(CKD) >90 (>60 ml/min/1.73 sqM); Potassium 4.9 mmol/L (3.5-5.1); Sodium 142 mmol/L (137-145)
[2022-04-11 04:15] LABS: Anion Gap 0 mmol/L
[2022-04-11 04:25] LABS: Carbon Dioxide 44 mmol/L (22-30)
[2022-04-11 05:29] LABS: Glucose,Whole Blood 173 mg/dL (70-110)
[2022-04-11] MEDS: INSULIN ASPART (NovoLOG) 100 UNIT/ML VIAL SQ SCH ×7 (05:34→18:15)
[2022-04-11 06:05] LABS: ABG Base Excess 16.4 mmol/L; ABG Oxygen Saturation 99.8 % (94-97); ABG PH 7.33 (7.35-7.45); ABG PO2 172 mmHg (83-108); ABG TCO2 45 mmol/L (19-24); Allen Test Performed? Yes
[2022-04-11 06:07] LABS: ABG HCO3 42 mmol/L (21-25); ABG Hematocrit 23 % (34.0-46.0); ABG PCO2 81 mmHg (35-45)
[2022-04-11] MEDS: IPRATROPIUM-ALBUTEROL 3 ML NEB INHALATION SCH (07:08)
[2022-04-11] MEDS: BUDESONIDE 1 MG/2 ML NEBU INHALATION SCH (07:08)
[2022-04-11] MEDS: FORMOTEROL FUMARATE 20 MCG/2 ML NEBU INHALATION SCH (07:08)
--- NOTE | 2022-04-11 07:27 | XR ---
EXAMINATION TYPE: XR chest 1V portable DATE OF EXAM: 04/11/2022 5:28 AM COMPARISON: Multiple radiographs, with the most recent on 04/09/2022 , CT 04/03/2022. TECHNIQUE: XR chest 1V portable Portable AP radiograph of the chest. CLINICAL INDICATION:Male, 71 years old with history of mechanically ventilated; FINDINGS: Lungs/Pleura: Similar multifocal airspace opacities. No evidence of pneumothorax or pleural effusion. Increased lucency in the lung apices is remains present. Pulmonary vascularity: Unremarkable. Heart/mediastinum: Cardiomediastinal silhouette is unremarkable. Musculoskeletal: No acute osseous pathology. Lines/Tubes:Tracheostomy cannula tip projecting over the trachea. Left-sided PICC with distal tip at the superior vena cava/brachiocephalic confluence. IMPRESSION: 1. Similar multifocal airspace opacities. 2. Similar left hilar mass best appreciated on CT 04/03/2022 3. COPD changes
[2022-04-11] MEDS: CHLORHEXIDINE GLUCONATE 15 ML CUP MUCOUS MEM SCH ×2 (08:47→20:20)
[2022-04-11] MEDS: QUEtiapine 50 MG TAB PO SCH ×3 (08:48→21:13)
[2022-04-11] MEDS: HEPARIN SODIUM,PORCINE/PF 5,000 UNIT/0.5 ML SYRINGE SQ SCH ×2 (08:48→20:18)
[2022-04-11] MEDS: ASPIRIN 81 MG PO SCH (08:48)
[2022-04-11] MEDS: GABAPENTIN 300 MG CAP PO SCH ×3 (08:49→21:13)
[2022-04-11] MEDS: CHOLECALCIFEROL 25 MCG (1000 IU) TABLET PO SCH (08:49)
[2022-04-11] MEDS: PANTOPRAZOLE 40 MG/10 ML VIAL IVP SCH (08:55)
[2022-04-11] MEDS ORDERED: DEXAMETHASONE SOD PHOSPHATE 10 MG/ML 1 ML VIAL IVP SCH (09:00)
[2022-04-11] MEDS: CLEVIDIPINE BUTYRATE 25 MG in EMPTY BAG 1 BAG IV SCH ×4 (09:26→21:44)
[2022-04-11] MEDS: DEXMEDETOMIDINE/0.9% NACL(PMX) 400 MCG in EMPTY BAG 1 BAG IV SCH (09:59)
--- NOTE | 2022-04-11 10:55 | P.PN ---
Subjective Progress Note Date: 04/11/22 Principal diagnosis: Respiratory failure. Reevaluated today on 04/03/22, patient remains in the ICU intubated and mechanically ventilated. He is now on assist control rate of 20 to volume 450 FiO2 35% and PEEP of 5. Peak airway pressure is 35. His ABG showed a pO2 of 106 pCO2 56 pH of 7.34. Patient remains on 35% FiO2. Patient is off norepinephrine he remains on normal saline at 50 mL an hour and on propofol at 50 mcg/kg/m. Patient is receiving vital Hp at 50 mL/h the goal is 50. On physical examination continues to have rhonchi and wheezes bilaterally chest x- rays showing slight improvement in his bilateral infiltrates. Left hilar mass remains the same. Hence I have no plans to wean the patient today, and the family has made a decision that the patient does not wean in the next few days, they would like him to proceed with tracheostomy and PEG tube placement and eventual placement. We will decide this early next week in the meantime patient is not related to believe that extubated. CBC is relatively unremarkable WBC 7.3 hemoglobin is 8.8, basic metabolic profile is relatively normal, BUN is 67 creatinine is 1.36 hence we will increase his IV fluid to 75 mL Reevaluated today on 04/04/22, patient remains in the ICU, intubated and mechanically ventilated. 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 ABG showed a pO2 of 69 pCO2 of 67 pH of 7.29. Hence we'll increase his rate to 24. Patient remains on propofol at 50 mcg/kg/m, IV fluid 0.9 normal saline at 75 mL per hour. He is receiving vital HP at 50 mL per hour/cor. His sputum is coming back positive for Serratia and Haemophilus influenza both are covered with Zosyn. Patient has been on Zosyn all along. Patient is sedated however I will try to awaken the patient today, and assess mental status. On physical examination he continues to have tightness and wheezing and I don't believe the patient is ready to have any weaning trials again. Today I even discussed the situation all over with the family about possible tracheostomy PEG tube placement PICC line placement and eventual placement and a ventilator facility. I also discussed the option of comfort care measures. Family seems to be inclin ed to proceed with tracheostomy and PEG tube placement as well as PICC line placement and eventual transfer to a ventilator facility/selective care specialty. Prognosis is obviously very poor, and the family is very well aware that the patient has poor prognosis with severe end-stage COPD and bronchogenic carcinoma. WBC count is 8.8 hemoglobin is 9.7, basic metabolic profile is normal BUN is 60 creatinine 0.68. For some reason a CT angio the chest was ordered yesterday, no evidence of pulmonary embolism clinically I never thought that the patient had pulmonary embolism and the clinical presentation is not a presentation of pulmonary embolism. Progress note dated 04/05/2022. 71-year-old male admitted to the hospital on March 31, with respiratory failure. He was intubated on the same day. He remains on mechanical ventilator. I spoke to his and daughter today. They will agree to tracheostomy and PEG tube placement. This was apparently discussed by my partner with the family yesterday, who knows the patient well, and who has been taking care of this patient for over 20 years. Currently, he remains on the volume assist control, rate 20, tidal volume 450, FiO2 35%, and PEEP of 5. Arterial blood gases show pO2 of 69, pCO2 of 69, and pH is 7.28. The patient remains on propofol at 35 mcg/m, saline at 75 mL an hour, and vital high protein at 50 mL an hour, with a goal of 50 mL an hour. Norepinephrine has been weaned off and the patient remains on Zosyn. White count 11.8, hemoglobin 9.9, hematocrit 33, platelet count 439,000. Sodium 146, potassium 4.9, chlorides 108, CO2 32, BUN 52, creatinine 0.64. Sputum samples from April 01 positive for Serratia, and Haemophilus. Chest x-ray is essentially unchanged. Progress note dated 04/06/2022 71-year-old male admitted to the hospital on March 31, with respiratory failure. He was intubated on the same day. He remains on mechanical ventilator. The patient is to have a tracheostomy tube and PEG tube placed today. He is currently on volume assist control, rate 20, tidal volume 450, FiO2 40%, and PEEP of 5. Blood gases show pO2 of 91, pCO2 of 65, and pH is 7.33. The patient is currently on propofol at 40 mcg/kg/m, and saline at 75 mL an hour. Tube feedings on hold in anticipation of the surgical procedure today. White count 11.4, hemoglobin 9.4, hematocrit 31.6, and platelet count 460,000. Sodium 148, potassium 4.6, chlorides 109, CO2 30, anion gap 7, BUN 47, and creatinine 0.71. Chest x-ray shows some diffuse bilateral infiltrates, and is essentially unchanged. Progress note dated 04/07/2022. 71-year-old male admitted to the hospital on March 31, with respiratory failure. He was intubated on the same day. He remains on the mechanical ventilator. Yesterday, he had a tracheostomy tube and a PEG tube placed by surgery. The patient is on volume assist control, rate 20, tidal volume 450, FiO2 40%, and PEEP of 5. Blood gases show a PaO2 of 86, pCO2 of 68, and pH 7.31. He is somewhat dyssynchronous with the ventilator, so we will switch him to pressure regulated volume control or VC plus with a targeted tidal volume of 450, inspiratory time of 0.8 seconds. He's currently on propofol at 25 mcg/kg/m, norepinephrine at 0.07 mcg/kg/m, lactated Ringer's at 10 mL an hour, and D5W at 75 mL an hour. Tube feedings have not yet been restarted. White count 10.5, hemoglobin 8.7, hematocrit 28.6, and platelet count 355,000. Sodium 143, potassium 4.6, chloride 106, CO2 33, BUN 32, and creatinine 0.72. Albumin is 2.3. Sputum from April 01 showed both Serratia marcescens and Haemophilus influenzae. No chest x-ray she had today. Progress note dated 04/08/2022. 71-year-old male who was admitted to the hospital on March 31, with respiratory failure. He was unfortunately intubated on the same day. He remains on the mechanical ventilator. He is status post tracheostomy and PEG tube placement. Currently, he is on pressure regulated volume control, with a targeted tidal volume of 450, anion inspiratory time of 0.8 seconds. His respiratory rate is 20 his FiO2 is 40% PEEP is 5. He is much more synchronous with the ventilator. Blood gases show pO2 of 88, pCO2 of 61, and a pH is 7.37. The patient's Zosyn will be discontinued. He'll get Lasix 40 mg IV push. In addition, in an attempt to get him off the propofol, we added Dilaudid 1 mg every 2 hours when necessary, and Seroquel 50 mg 3 times a day. His norepinephrine is currently on hold. He is on propofol at 45 mcg/kg/m, and D5W at 75 mL an hour, which will be made KVO. Finally, he is getting Vital at 20 mL an hour, with a goal of 50. White count 8.5, hemoglobin 8.2, hematocrit 27.5, and platelet count 319,000. Sodium 139, potassium 4.6, chlorides 101, CO2 33, E1 31, and creatinine 0.67. Albumin is only 2.2. Sputum sampling from April 01 shows evidence of both Serratia marcescens and Haemophilus influenzae. Chest x-ray shows a midline tracheostomy, changes of COPD, and a left perihilar mass. Progress note dated 04/09/2022. 71-year-old male who was admitted to the hospital on March 31 with respiratory failure. He was unfortunately intubated on the same day. He remains on mechani babak ventilator. Because of failure to wean, he is status post tracheostomy and PEG tube placement. He is currently on pressure regulated volume control ventilation, with a targeted tidal volume of 450, and an inspiratory time of 0.8 seconds. In addition, his respiratory rate is 20, FiO2 is 40%, with a PEEP of 5. Blood gases show a PaO2 of 79, pCO2 of 63, and pH 7.37. He is getting Lasix 60 mg today IV push once. We have asked for a PICC line be placed, and he will have Dopplers of the upper extremities, ordered by his primary care physician. In addition, we'll check a pro-calcitonin level. He is getting saline at KVO, and lactated Ringer's at KVO, he is off propofol and norepinephrine. He is getting vital high protein at 40 mL an hour, with a goal of 50. White count 9, hemoglobin 8.3, hematocrit 27.1, with a platelet count of 303,000. Sodium is 140, potassium 4.6, chlorides 100, CO2 36, BUN 30, creatinine 0.6. Albumin is 2.2. Dopplers of the upper extremities bilaterally, are negative. Chest x-ray shows a left hilar mass, emphysematous changes, and some mild infiltrates. Progress note dated 04/10/2022. 71-year-old male who was admitted to the hospital on March 31, with respiratory failure. Unfortunately, the patient was intubated on the same day remains on the mechanical ventilator. Because of failure to wean, he is status post tracheostomy and PEG tube placement. He is currently on pressure regulated volume control ventilation, with a targeted tidal volume 450, and inspiratory time of 0.08 seconds. The patient's FiO2 is 40%, rate is 20, and PEEP of 5. Blood gases show pO2 73, pCO2 of 65 the normal pH is 7.39. Lactated Ringer's at 20 mL an hour. Norepinephrine M propofol have been weaned off. We DC'd the triple-lumen catheter. The patient does have a PICC line in. The patient will get Lasix 60 mg IV push today. Labs today include a white count 12.1, hemoglobin 8.1, hematocrit 26.9, and platelet count 275,000. Sodium is 140, potassium 4.6, chloride 98, CO2 38, BUN 35, and creatinine 0.65. Albumin is 2.3. Chest x-ray is unchanged. Progress note dated 04/11/2022. 71-year-old male, who was admitted to the hospital on March 31, with respiratory failure. Unfortunately, the patient was intubated on the same day, and remains on the mechanical ventilator. Because of failure to wean, he is status post tracheostomy and PEG tube placement. Unfortunately, it was discovered that his tested positive for coronavirus, and he also tested positive his had been spending day and night in the room with him. She had been coughing quite a bit. Currently, he's on pressure regulated volume control, with a targeted tidal volume of 450 and inspiratory time 0.8 seconds. Respiratory rate is 20, FiO2 is 40%, and PEEP is 5. Arterial blood gases on the same settings, but 60%, show pO2 of 172, pCO2 81, and a pH is 7.33. The patie nt's Cleveprex is off. The patient's getting vital high protein at 63 mL an hour, which is goal, in KVO, lactated Ringer's. The patient is given Decadron, 6 mg, IV push daily. We'll DC his updrafts. White count 11.3, hemoglobin 7.6, hematocrit 26, and platelet count 277,000. Sodium 142, potassium 4.9, chlorides 98, CO2 44, BUN 38, creatinine 0.74. Chest x-ray shows changes of COPD, a left hilar mass, unchanged, and bilateral airspace disease, unchanged. Objective - Vital Signs Vital signs: Vital Signs Temp 98.4 F 04/11/22 08:00 Pulse 104 H 04/11/22 09:00 Resp 22 04/11/22 09:00 BP 116/66 04/09/22 16:00 Pulse Ox 88 L 04/11/22 09:00 FiO2 40 04/11/22 08:31 Intake & Output 04/10/22 04/11/22 04/11/22 18:59 06:59 18:59 Intake Total 1719.526 0722.633 207.100 Output Total 1300 780 175 Balance 70.666 397.633 32.100 Weight 87.2 kg Intake: IV 299 276 46 Dextrose 5% in Water 1, 20 000 ml @ 20 mls/hr IV . Q24H [facility] Rx#:[id number] Lactated ringers 240 240 40 pressure bag 39 36 6 Intake, IV Titration 162.666 55.633 5.100 Amount Clevidipine Butyrate 25 162.666 55.633 5.100 mg In Empty Bag 1 bag @ 1 MG/HR 2 mls/hr IV .Q24H [facility] Rx#:[id number] Tube Feeding 819 756 126 Other 90 90 30 Output: Urine 1300 780 175 Other: Voiding Method Indwelling Catheter Indwelling Catheter Indwelling Catheter ABP, PAP, CO, CI - Last Documented Arterial Blood Pressure 167/59 - Exam No acute distress, currently on propofol, with a midline tracheostomy tube. HEENT examination is grossly unremarkable. Neck supple. Full range of motion. No adenopathy thyromegaly or neck vein distention. Cardiovascular examination reveals regular rhythm rate. S1-S2 normal. No S3 or S4. No discernible murmur noted. Heart sounds are distant. Heart rate 104 bpm . Lungs reveal scattered bilateral rhonchi. Breath sounds equal bilaterally wheezes. No crackles. Saturations are 95 %. Abdomen soft bowel sounds are heard. No masses or tenderness. PEG tube noted. Extremities are intact. No cyanosis clubbing or edema. Skin is without rash or lesion. Neurologic examination cannot be properly assessed. - Labs CBC & Chem 7: 04/11/22 03:34 04/11/22 03:34 Labs: Abnormal Lab Results - Last 24 Hours (Table) 04/10/22 04/10/22 04/10/22 Range/Units 12:07 12:15 18:52 WBC (3.8-10.6) k/uL RBC (4.30-5.90) m/uL Hgb (13.0-17.5) gm/dL Hct (39.0-53.0) % MCV (80.0-100.0) fL MCHC (31.0-37.0) g/dL RDW (11.5-15.5) % Neutrophils # (1.3-7.7) k/uL Lymphocytes # (1.0-4.8) k/uL ABG pH (7.35-7.45) ABG pCO2 (35-45) mmHg ABG pO2 (83-108) mmHg ABG HCO3 (21-25) mmol/L ABG Total CO2 (19-24) mmol/L ABG O2 Saturation (94-97) % ABG Hematocrit (34.0-46.0) % Hemoglobin (13.0-17.5) gm/dL Carbon Dioxide (22-30) mmol/L BUN (9-20) mg/dL Glucose (74-99) mg/dL POC Glucose (mg/dL) 187 H 199 H (70-110) mg/dL C-Reactive Protein (<1.0) mg/dL Coronavirus (PCR) Detected A (Not Detectd) 04/10/22 04/10/22 04/11/22 Range/Units 18:55 23:29 03:34 WBC 11.3 H (3.8-10.6) k/uL RBC 2.57 L (4.30-5.90) m/uL Hgb 7.6 L (13.0-17.5) gm/dL Hct 26.0 L (39.0-53.0) % MCV 101.1 H (80.0-100.0) fL MCHC 29.3 L (31.0-37.0) g/dL RDW 20.7 H (11.5-15.5) % Neutrophils # 10.4 H (1.3-7.7) k/uL Lymphocytes # 0.4 L (1.0-4.8) k/uL ABG pH (7.35-7.45) ABG pCO2 (35-45) mmHg ABG pO2 (83-108) mmHg ABG HCO3 (21-25) mmol/L ABG Total CO2 (19-24) mmol/L ABG O2 Saturation (94-97) % ABG Hematocrit (34.0-46.0) % Hemoglobin (13.0-17.5) gm/dL Carbon Dioxide (22-30) mmol/L BUN (9-20) mg/dL Glucose (74-99) mg/dL POC Glucose (mg/dL) 155 H (70-110) mg/dL C-Reactive Protein 20.3 H (<1.0) mg/dL Coronavirus (PCR) (Not Detectd) 04/11/22 04/11/22 04/11/22 Range/Units 03:34 05:26 06:00 WBC (3.8-10.6) k/uL RBC (4.30-5.90) m/uL Hgb (13.0-17.5) gm/dL Hct (39.0-53.0) % MCV (80.0-100.0) fL MCHC (31.0-37.0) g/dL RDW (11.5-15.5) % Neutrophils # (1.3-7.7) k/uL Lymphocytes # (1.0-4.8) k/uL ABG pH 7.33 L (7.35-7.45) ABG pCO2 81 H* (35-45) mmHg ABG pO2 172 H (83-108) mmHg ABG HCO3 42 H* (21-25) mmol/L ABG Total CO2 45 H (19-24) mmol/L ABG O2 Saturation 99.8 H (94-97) % ABG Hematocrit 23 L (34.0-46.0) % Hemoglobin 7.5 L (13.0-17.5) gm/dL Carbon Dioxide 44 H* (22-30) mmol/L BUN 38 H (9-20) mg/dL Glucose 135 H (74-99) mg/dL POC Glucose (mg/dL) 173 H (70-110) mg/dL C-Reactive Protein (<1.0) mg/dL Coronavirus (PCR) (Not Detectd) Microbiology - Last 24 Hours (Table) 04/10/22 09:19 Catheter Tip Culture - Preliminary Catheter Tip Assessment and Plan Assessment: Acute on chronic hypoxemic and hypercapnic respiratory failure, status post in tubation and mechanical ventilation on 03/31/2022, status post tracheostomy and PEG tube placement 04/06/2022, for failure to wean from mechanical ventilation. Bilateral pneumonia and sepsis, secondary to Serratia and Haemophilus. Recent positive test for coronavirus, with possible coronavirus associated pneumonia. Acute exacerbation of COPD. History of squamous cell lung cancer, diagnosed December 2021. Previous history of respiratory failure, requiring intubation, and subsequent tracheostomy. Generalized anxiety disorder. Severe/stage III/stage IV COPD, with an FEV1 that's 35%. Degenerative joint disease. Acute kidney injury. Plan: Plan dated 04/05/2022. The patient will proceed with a tracheostomy and PEG tube, as per the wishes of the and daughter. The patient on IV Zosyn, and other breathing treatments. The patient also remains on GI and DVT prophylaxis. No additional recommendations are made. I did mention to the , that the patient may end up at long-term acute care facility or specialized nursing facility. Prognosis is extremely poor. We'll continue with tube feeds. Norepinephrine has been weaned off. Labs, x-rays, medications are all reviewed. Plan dated 04/06/2022. I had a long conversation with the patient's yesterday about PEG tube placement and tracheostomy tube. She is in agreement. She understands that he has a very poor prognosis given his diagnosis of COPD and lung cancer. Nonetheless, she does want to proceed with the PEG tube and the tracheostomy tube. Labs, x-rays, and medications are reviewed. Prognosis is poor. I did mention to her that he would likely end up at long-term acute care facility or specialized nursing facility after discharge from this institution. The patient remains on Zosyn. His saline IV is changed to D5 W because of hypernatremia. Plan dated 04/07/2022. The patient's ventilation will be changed to pressure regulated volume control. We will have a targeted tidal volume of 450, and a inspiratory time of 0.8 seconds. The patient remains on propofol, and norepinephrine. Tube feedings have not yet been restarted. He continues on Zosyn for Serratia and Haemophilus influenzae. The patient had a tracheostomy tube and PEG tube placed yesterday, April 06. Labs, x-rays, and medications are reviewed. Overall prognosis remains very poor. I did mention to the that he will probably end up in a long-term acute care center. Plan dated 04/08/2022. The patient's much more synchronous on the ventilator, and the pressure regulated volume control modality. Blood gases are stable. Labs, x-rays, and medications are all reviewed. The patient Zosyn will be discontinued today. He did receive 7 days. For his edema, he will get Lasix 40 mg IV push. We will attempt to get him off the propofol, by adding Dilaudid when necessary, and scheduled Seroquel. His D5W IV will be turned down to KVO. Norepinephrine is currently on hold. Overall prognosis remains very poor. The nursing staff is having difficulty with the patient's tracheostomy, because of scar tissue, from a previous tracheostomy. Plan dated 04/09/2022. Today, the patient's was updated. The patient will likely need to be transferred to a long-term acute care facility. To that end, the patient is no longer on norepinephrine or propofol. The patient is currently on Dilaudid when necessary, and Seroquel. Labs, x-rays, and medications are reviewed. Overall prognosis is very poor. The patient is status post tracheostomy and PEG tube placement. The patient was also recently diagnosed with lung cancer, and December of this year. We will continue to follow make recommendations along the way. Plan dated 04/10/2022. The patient is doing about the same. He remains on the mechanical ventilator. He will get Lasix 60 mg IV push today. Today we discontinue the triple lumen catheter in the inguinal area, and we will culture the tip. Blood gases are reasonable on pressure regulated volume control ventilation. The patient is been weaned off norepinephrine, and he is no longer on propofol, because we've added Dilaudid, and Seroquel. We will continue to follow make recommendations. The plan is to get the patient to a specialized nursing facility or long-term acute care. Prognosis is certainly very guarded. Labs, x-rays, and medications are all reviewed. Plan dated 04/11/2022. The patient remains on mechanical ventilator, on pressure regulated volume control modality. Additional blood gases are reasonable, and the FiO2 was reduced from 60%, down to 40%. His tested positive for coronavirus, and so did he. His had been in his room, since his admission, 07/03. The patient is given Decadron, 6 mg IV push daily. We will DC updrafts as they are aerosol generating procedures. Labs, x-rays, and medications are all reviewed. The patient will likely end up and a long-term acute care facility/specialized residential. The patient continues on Dilaudid and Seroquel. Prognosis is poor. Time with Patient: Greater than 30
--- NOTE | 2022-04-11 11:27 | P.PN ---
Subjective Progress Note Date: 04/11/22 Principal diagnosis: Respiratory failure Patient doing about the same today. He was found to be Covid positive. He was started on Decadron. Tolerating tube feeds. Remains on the ventilator. Objective - Vital Signs Vital signs: Vital Signs Temp 98.4 F 04/11/22 08:00 Pulse 107 H 04/11/22 09:30 Resp 20 04/11/22 09:30 BP 116/66 04/09/22 16:00 Pulse Ox 90 L 04/11/22 09:30 FiO2 60 04/11/22 11:10 Intake & Output 04/10/22 04/11/22 04/11/22 18:59 06:59 18:59 Intake Total 3338.712 7254.633 207.100 Output Total 1300 780 175 Balance 70.666 397.633 32.100 Weight 87.2 kg Intake: IV 299 276 46 Dextrose 5% in Water 1, 20 000 ml @ 20 mls/hr IV . Q24H [facility] Rx#:[id number] Lactated ringers 240 240 40 pressure bag 39 36 6 Intake, IV Titration 162.666 55.633 5.100 Amount Clevidipine Butyrate 25 162.666 55.633 5.100 mg In Empty Bag 1 bag @ 1 MG/HR 2 mls/hr IV .Q24H [facility] Rx#:[id number] Tube Feeding 819 756 126 Other 90 90 30 Output: Urine 1300 780 175 Other: Voiding Method Indwelling Catheter Indwelling Catheter Indwelling Catheter ABP, PAP, CO, CI - Last Documented Arterial Blood Pressure 151/52 - Exam Tracheostomy site and PEG tube catheter site clean and dry without evidence of infection or bleeding. - Labs CBC & Chem 7: 04/11/22 03:34 04/11/22 03:34 Labs: Abnormal Lab Results - Last 24 Hours (Table) 04/10/22 04/10/22 04/10/22 Range/Units 12:07 12:15 18:52 WBC (3.8-10.6) k/uL RBC (4.30-5.90) m/uL Hgb (13.0-17.5) gm/dL Hct (39.0-53.0) % MCV (80.0-100.0) fL MCHC (31.0-37.0) g/dL RDW (11.5-15.5) % Neutrophils # (1.3-7.7) k/uL Lymphocytes # (1.0-4.8) k/uL ABG pH (7.35-7.45) ABG pCO2 (35-45) mmHg ABG pO2 (83-108) mmHg ABG HCO3 (21-25) mmol/L ABG Total CO2 (19-24) mmol/L ABG O2 Saturation (94-97) % ABG Hematocrit (34.0-46.0) % Hemoglobin (13.0-17.5) gm/dL Carbon Dioxide (22-30) mmol/L BUN (9-20) mg/dL Glucose (74-99) mg/dL POC Glucose (mg/dL) 187 H 199 H (70-110) mg/dL C-Reactive Protein (<1.0) mg/dL Coronavirus (PCR) Detected A (Not Detectd) 04/10/22 04/10/22 04/11/22 Range/Units 18:55 23:29 03:34 WBC 11.3 H (3.8-10.6) k/uL RBC 2.57 L (4.30-5.90) m/uL Hgb 7.6 L (13.0-17.5) gm/dL Hct 26.0 L (39.0-53.0) % MCV 101.1 H (80.0-100.0) fL MCHC 29.3 L (31.0-37.0) g/dL RDW 20.7 H (11.5-15.5) % Neutrophils # 10.4 H (1.3-7.7) k/uL Lymphocytes # 0.4 L (1.0-4.8) k/uL ABG pH (7.35-7.45) ABG pCO2 (35-45) mmHg ABG pO2 (83-108) mmHg ABG HCO3 (21-25) mmol/L ABG Total CO2 (19-24) mmol/L ABG O2 Saturation (94-97) % ABG Hematocrit (34.0-46.0) % Hemoglobin (13.0-17.5) gm/dL Carbon Dioxide (22-30) mmol/L BUN (9-20) mg/dL Glucose (74-99) mg/dL POC Glucose (mg/dL) 155 H (70-110) mg/dL C-Reactive Protein 20.3 H (<1.0) mg/dL Coronavirus (PCR) (Not Detectd) 04/11/22 04/11/22 04/11/22 Range/Units 03:34 05:26 06:00 WBC (3.8-10.6) k/uL RBC (4.30-5.90) m/uL Hgb (13.0-17.5) gm/dL Hct (39.0-53.0) % MCV (80.0-100.0) fL MCHC (31.0-37.0) g/dL RDW (11.5-15.5) % Neutrophils # (1.3-7.7) k/uL Lymphocytes # (1.0-4.8) k/uL ABG pH 7.33 L (7.35-7.45) ABG pCO2 81 H* (35-45) mmHg ABG pO2 172 H (83-108) mmHg ABG HCO3 42 H* (21-25) mmol/L ABG Total CO2 45 H (19-24) mmol/L ABG O2 Saturation 99.8 H (94-97) % ABG Hematocrit 23 L (34.0-46.0) % Hemoglobin 7.5 L (13.0-17.5) gm/dL Carbon Dioxide 44 H* (22-30) mmol/L BUN 38 H (9-20) mg/dL Glucose 135 H (74-99) mg/dL POC Glucose (mg/dL) 173 H (70-110) mg/dL C-Reactive Protein (<1.0) mg/dL Coronavirus (PCR) (Not Detectd) Microbiology - Last 24 Hours (Table) 04/10/22 09:19 Catheter Tip Culture - Preliminary Catheter Tip Assessment and Plan (1) Acute respiratory failure Narrative/Plan: Patient clinically stable. Continue weaning ventilator per pulmonary. Continue tube feeds at goal. Current Visit: No Status: Acute Code(s): J96.00 - ACUTE RESPIRATORY FAILURE, UNSP W HYPOXIA OR HYPERCAPNIA SNOMED Code(s): 80584566
[2022-04-11 11:46] LABS: Glucose,Whole Blood 153 mg/dL (70-110)
[2022-04-11] MEDS: NOREPINEPHRINE 4 MG in SODIUM CHLORIDE 0.9% 250 ML IV SCH (14:28)
[2022-04-11 14:43] LABS: Glucose,Whole Blood 167 mg/dL (70-110)
--- NOTE | 2022-04-11 15:26 | P.PN ---
Subjective Progress Note Date: 04/11/22 This is a 71 year old male, patient of Dr Dougherty. Patient is monitored in the intensive care unit, intubated currently with FiO2 of 60%, maintaining oxygen saturation of 91%. Patient was started on cleviprex gtt today as his blood pressure was elevated up in the 200s systolic. It has improved to 139/47. Triple lumen catheter has been DC'd and tip sent for culture, patient did receive a PICC Line today. Currently receiving enteral tube feedings through PEG and tolerating well, patient did have BM. Labs today showing white count 12.1, hgb 8.1, sodium 140, potassium 4.6, BUN 35, creatinine 0.65, glucose in the 180s today. Received a one time dose of 60 IV lasix today. Afebrile, heart rate in the 100's, blood pressure 144/50, temperature 97.8, heart rate 100, blood pressure 144/50. 04/11/2022 Patient continues to be monitored in the intensive care unit, currently intubated with FiO2 of 50%. Patient was found to be positive for COVID yesterday, his is also positive for COVID and had been visiting patient in the ICU. Chest xray showing multifocal airspace opacities, left hilar mass, COPD. Started on IV decadron. Insulin has been increased. Labs today showing white count 11.3, hgb 7.6, CO2 44, BUN 38, creatinine 0.74, blood glucose in the 150s. Blood culture negative. Catheter tip culture pending. Completed 7 days of antibiotic therapy with IV zosyn, discontinued now. Updrafts discontinued today. Unable to complete full review of systems patient is intubated in ICU PHYSICAL EXAMINATION: GENERAL: The patient is intubated and sedated in ICU. Well developed, well nourished. HEENT: Pupils are round and equally reacting to light. EOMI. No scleral icterus. No conjunctival pallor. Normocephalic, atraumatic. No pharyngeal erythema. No thyromegaly. CARDIOVASCULAR: S1 and S2 present. No murmurs, rubs, or gallops. PULMONARY: Coarse sounds throughout ABDOMEN: Soft, nontender, nondistended, normoactive bowel sounds. No palpable organomegaly. MUSCULOSKELETAL: No joint swelling or deformity. EXTREMITIES: No cyanosis, clubbing. Upper extremity peripheral edema bilaterally, pitting hands. NEUROLOGICAL: Gross neurological examination did not reveal any focal deficits. SKIN: No rashes. 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, recent diagnosis Acute Kidney injury Elevated D Dimer with CTA negative for PE History COPD, oxygen dependent History hyperlipidemia History pneumonia requiring intubation/trach in 2018 Peripheral neuropathy Former nicotine dependence GI Prophylaxis DVT Prophylaxis Full Code Plan Continue close monitoring in intensive care unit Continues on mechical Ventilator Patient has been weaned off levophed/propofol maintaining blood pressures Cleviprex discontinued Off antibiotics Decadron IV started today Repeat labs in AM The impression and plan of care has been dictated by Africa Love, Nurse Practitioner as directed. Dr. Sanchez MD I have performed a history and physical examination and medical decision making of this patient, discussed the same with the dictator, and agree with the dictators assessment and plan as written, documented as a scribe. Based on total visit time, I have performed more than 50% of this visit. Objective - Vital Signs Vital signs: Vital Signs Temp 99.1 F 04/11/22 10:00 Pulse 87 04/11/22 14:46 Resp 20 04/11/22 14:46 BP 135/54 04/11/22 14:46 Pulse Ox 97 04/11/22 14:46 FiO2 60 04/11/22 12:00 Intake & Output 04/10/22 04/11/22 04/11/22 18:59 06:59 18:59 Intake Total 6274.380 3227.633 667.100 Output Total 1300 780 550 Balance 70.666 397.633 117.100 Weight 87.2 kg Intake: IV 299 276 161 Dextrose 5% in Water 1, 20 000 ml @ 20 mls/hr IV . Q24H [facility] Rx#:[id number] Lactated ringers 240 240 140 pressure bag 39 36 21 Intake, IV Titration 162.666 55.633 5.100 Amount Clevidipine Butyrate 25 162.666 55.633 5.100 mg In Empty Bag 1 bag @ 1 MG/HR 2 mls/hr IV .Q24H [facility] Rx#:[id number] Tube Feeding 416 532 338 Other 90 90 60 Output: Urine 1300 780 550 Other: Voiding Method Indwelling Catheter Indwelling Catheter Indwelling Catheter ABP, PAP, CO, CI - Last Documented Arterial Blood Pressure 137/55 - Labs CBC & Chem 7: 04/11/22 03:34 04/11/22 03:34 Labs: Abnormal Lab Results - Last 24 Hours (Table) 04/10/22 04/10/22 04/10/22 Range/Units 18:52 18:55 23:29 WBC (3.8-10.6) k/uL RBC (4.30-5.90) m/uL Hgb (13.0-17.5) gm/dL Hct (39.0-53.0) % MCV (80.0-100.0) fL MCHC (31.0-37.0) g/dL RDW (11.5-15.5) % Neutrophils # (1.3-7.7) k/uL Lymphocytes # (1.0-4.8) k/uL ABG pH (7.35-7.45) ABG pCO2 (35-45) mmHg ABG pO2 (83-108) mmHg ABG HCO3 (21-25) mmol/L ABG Total CO2 (19-24) mmol/L ABG O2 Saturation (94-97) % ABG Hematocrit (34.0-46.0) % Hemoglobin (13.0-17.5) gm/dL Carbon Dioxide (22-30) mmol/L BUN (9-20) mg/dL Glucose (74-99) mg/dL POC Glucose (mg/dL) 199 H 155 H (70-110) mg/dL C-Reactive Protein 20.3 H (<1.0) mg/dL 04/11/22 04/11/22 04/11/22 Range/Units 03:34 03:34 05:26 WBC 11.3 H (3.8-10.6) k/uL RBC 2.57 L (4.30-5.90) m/uL Hgb 7.6 L (13.0-17.5) gm/dL Hct 26.0 L (39.0-53.0) % MCV 101.1 H (80.0-100.0) fL MCHC 29.3 L (31.0-37.0) g/dL RDW 20.7 H (11.5-15.5) % Neutrophils # 10.4 H (1.3-7.7) k/uL Lymphocytes # 0.4 L (1.0-4.8) k/uL ABG pH (7.35-7.45) ABG pCO2 (35-45) mmHg ABG pO2 (83-108) mmHg ABG HCO3 (21-25) mmol/L ABG Total CO2 (19-24) mmol/L ABG O2 Saturation (94-97) % ABG Hematocrit (34.0-46.0) % Hemoglobin (13.0-17.5) gm/dL Carbon Dioxide 44 H* (22-30) mmol/L BUN 38 H (9-20) mg/dL Glucose 135 H (74-99) mg/dL POC Glucose (mg/dL) 173 H (70-110) mg/dL C-Reactive Protein (<1.0) mg/dL 04/11/22 04/11/22 04/11/22 Range/Units 06:00 11:44 14:41 WBC (3.8-10.6) k/uL RBC (4.30-5.90) m/uL Hgb (13.0-17.5) gm/dL Hct (39.0-53.0) % MCV (80.0-100.0) fL MCHC (31.0-37.0) g/dL RDW (11.5-15.5) % Neutrophils # (1.3-7.7) k/uL Lymphocytes # (1.0-4.8) k/uL ABG pH 7.33 L (7.35-7.45) ABG pCO2 81 H* (35-45) mmHg ABG pO2 172 H (83-108) mmHg ABG HCO3 42 H* (21-25) mmol/L ABG Total CO2 45 H (19-24) mmol/L ABG O2 Saturation 99.8 H (94-97) % ABG Hematocrit 23 L (34.0-46.0) % Hemoglobin 7.5 L (13.0-17.5) gm/dL Carbon Dioxide (22-30) mmol/L BUN (9-20) mg/dL Glucose (74-99) mg/dL POC Glucose (mg/dL) 153 H 167 H (70-110) mg/dL C-Reactive Protein (<1.0) mg/dL Microbiology - Last 24 Hours (Table) 04/10/22 09:19 Catheter Tip Culture - Preliminary Catheter Tip Assessment and Plan Time with Patient: Less than 30
[2022-04-11 18:14] LABS: Glucose,Whole Blood 207 mg/dL (70-110)
[2022-04-11] MEDS: LACTATED RINGERS 1,000 ML IV SCH (18:21)
[2022-04-11] MEDS: ATORVASTATIN 10 MG TAB PO SCH (20:19)
[2022-04-11] MEDS: LATANOPROST 0.005% OPHTH DROPS 2.5 ML BTL BOTH EYES SCH (20:25)
[2022-04-12 00:10] LABS: Glucose,Whole Blood 217 mg/dL (70-110)
[2022-04-12] MEDS: HYDROmorphone 1 MG/ML 1 ML SYRINGE IVP SCH ×12 (00:41→21:01)
[2022-04-12] MEDS: INSULIN ASPART (NovoLOG) 100 UNIT/ML VIAL SQ SCH ×8 (00:52→17:34)
[2022-04-12] MEDS: CLEVIDIPINE BUTYRATE 25 MG in EMPTY BAG 1 BAG IV SCH ×4 (04:23→13:18)
[2022-04-12 05:10] LABS: ABG Base Excess 18.1 mmol/L; ABG Oxygen Saturation 94.7 % (94-97); ABG PH 7.31 (7.35-7.45); ABG PO2 71 mmHg (83-108); ABG TCO2 47 mmol/L (19-24)
[2022-04-12 05:14] LABS: Glucose,Whole Blood 192 mg/dL (70-110)
[2022-04-12 05:24] LABS: Anisocytosis Moderate; Basophils % (A) 0 %; Eosinophils % (A) 0 %; HCT 27.5 % (39.0-53.0); Hypochromasia Marked; Lymphocytes # (A) 0.3 k/uL (1.0-4.8); Lymphocytes % (A) 3 %; MCH 29.6 pg (25.0-35.0); MCHC 29.1 g/dL (31.0-37.0); MCV 101.8 fL (80.0-100.0); Macrocytosis Marked; Mean Platelet Volume 8.2; Monocytes # (A) 0.5 k/uL (0-1.0); Monocytes % (A) 4 %; Neutrophils # (A) 11.5 k/uL (1.3-7.7); Neutrophils % (A) 93 %; Platelet Count 331 k/uL (150-450); RDW 20.4 % (11.5-15.5); WBC 12.4 k/uL (3.8-10.6)
[2022-04-12 05:32] LABS: ABG HCO3 44 mmol/L (21-25); ABG Hematocrit 24 % (34.0-46.0); ABG PCO2 88 mmHg (35-45); Allen Test Performed? no
[2022-04-12 05:41] LABS: ALT 38 U/L (4-49); AST 33 U/L (17-59); African American GFR (CKD) >90 (>60 ml/min/1.73 sqM); Albumin 2.2 g/dL (3.5-5.0); Alkaline Phosphatase 237 U/L (38-126); Blood Urea Nitrogen 46 mg/dL (9-20); Calcium 9.2 mg/dL (8.4-10.2); Chloride 96 mmol/L (98-107); Glucose 189 mg/dL (74-99); Magnesium 2.1 mg/dL (1.6-2.3); Non-African American GFR(CKD) >90 (>60 ml/min/1.73 sqM); Potassium 5.3 mmol/L (3.5-5.1); Sodium 142 mmol/L (137-145); Total Bilirubin <0.1 mg/dL (0.2-1.3)
[2022-04-12 05:48] LABS: Anion Gap 5 mmol/L
[2022-04-12 06:00] LABS: Carbon Dioxide 41 mmol/L (22-30)
[2022-04-12] MEDS: NOREPINEPHRINE 4 MG in SODIUM CHLORIDE 0.9% 250 ML IV SCH (06:30)
--- NOTE | 2022-04-12 08:01 | P.PN ---
Subjective Principal diagnosis: Respiratory failure This is 71 white male with known history of COPD who is not intubated but slowly weaning. The patient is on FiO2 65% Still requiring pressors although slowly decreasing Tracheostomy is present. Left hilar mass is noted on x-ray. The patient is spacing. Prognosis is guarded. Multiple consultants. Left upper extremity is cooler than the right Objective - Vital Signs Vital signs: Vital Signs Temp 97.7 F 04/12/22 04:00 Pulse 89 04/12/22 07:00 Resp 31 H 04/12/22 07:00 BP 137/50 04/11/22 22:00 Pulse Ox 89 L 04/12/22 07:00 FiO2 65 04/12/22 07:11 Intake & Output 04/11/22 04/12/22 04/12/22 18:59 06:59 18:59 Intake Total 7674.542 9166.768 Output Total 925 1275 Balance 142.000 52.768 Weight 89 kg Intake: IV 253 299 Lactated ringers 220 260 pressure bag 33 39 Intake, IV Titration 31.000 119.768 Amount Clevidipine Butyrate 25 31.000 119.768 mg In Empty Bag 1 bag @ 1 MG/HR 2 mls/hr IV .Q24H [facility] Rx#:[id number] Tube Feeding 693 819 Other 90 90 Output: Urine 925 1275 Other: Voiding Method Indwelling Catheter Indwelling Catheter ABP, PAP, CO, CI - Last Documented Arterial Blood Pressure 170/59 - Constitutional General appearance: Present: mild distress - EENT Eyes: Absent: abnormal pupil - Respiratory Respiratory: bilateral: diminished - Cardiovascular Heart sounds: normal: S1, S2 Abnormal Heart Sounds: Absent: S4 Gallop - Gastrointestinal General gastrointestinal: Present: soft. Absent: tenderness - Integumentary Integumentary Comment(s): Edema - Labs CBC & Chem 7: 04/12/22 05:10 04/12/22 05:10 Labs: Abnormal Lab Results - Last 24 Hours (Table) 04/10/22 04/11/22 04/11/22 Range/Units 03:30 11:44 14:41 WBC (3.8-10.6) k/uL RBC (4.30-5.90) m/uL Hgb (13.0-17.5) gm/dL Hct (39.0-53.0) % MCV (80.0-100.0) fL MCHC (31.0-37.0) g/dL RDW (11.5-15.5) % Neutrophils # (1.3-7.7) k/uL Lymphocytes # (1.0-4.8) k/uL Macrocytosis ABG pH (7.35-7.45) ABG pCO2 (35-45) mmHg ABG pO2 (83-108) mmHg ABG HCO3 (21-25) mmol/L ABG Total CO2 (19-24) mmol/L ABG Hematocrit (34.0-46.0) % Hemoglobin (13.0-17.5) gm/dL Potassium (3.5-5.1) mmol/L Chloride (98-107) mmol/L Carbon Dioxide (22-30) mmol/L BUN (9-20) mg/dL Creatinine (0.66-1.25) mg/dL Glucose (74-99) mg/dL POC Glucose (mg/dL) 153 H 167 H (70-110) mg/dL Hemoglobin A1c 7.6 H (0.0-6.0) % Total Bilirubin (0.2-1.3) mg/dL Alkaline Phosphatase (38-126) U/L Total Protein (6.3-8.2) g/dL Albumin (3.5-5.0) g/dL 04/11/22 04/12/22 04/12/22 Range/Units 18:13 00:08 05:08 WBC (3.8-10.6) k/uL RBC (4.30-5.90) m/uL Hgb (13.0-17.5) gm/dL Hct (39.0-53.0) % MCV (80.0-100.0) fL MCHC (31.0-37.0) g/dL RDW (11.5-15.5) % Neutrophils # (1.3-7.7) k/uL Lymphocytes # (1.0-4.8) k/uL Macrocytosis ABG pH 7.31 L (7.35-7.45) ABG pCO2 88 H* (35-45) mmHg ABG pO2 71 L (83-108) mmHg ABG HCO3 44 H* (21-25) mmol/L ABG Total CO2 47 H (19-24) mmol/L ABG Hematocrit 24 L (34.0-46.0) % Hemoglobin 7.8 L (13.0-17.5) gm/dL Potassium (3.5-5.1) mmol/L Chloride (98-107) mmol/L Carbon Dioxide (22-30) mmol/L BUN (9-20) mg/dL Creatinine (0.66-1.25) mg/dL Glucose (74-99) mg/dL POC Glucose (mg/dL) 207 H 217 H (70-110) mg/dL Hemoglobin A1c (0.0-6.0) % Total Bilirubin (0.2-1.3) mg/dL Alkaline Phosphatase (38-126) U/L Total Protein (6.3-8.2) g/dL Albumin (3.5-5.0) g/dL 04/12/22 04/12/22 04/12/22 Range/Units 05:10 05:10 05:13 WBC 12.4 H (3.8-10.6) k/uL RBC 2.70 L (4.30-5.90) m/uL Hgb 8.0 L (13.0-17.5) gm/dL Hct 27.5 L (39.0-53.0) % MCV 101.8 H (80.0-100.0) fL MCHC 29.1 L (31.0-37.0) g/dL RDW 20.4 H (11.5-15.5) % Neutrophils # 11.5 H (1.3-7.7) k/uL Lymphocytes # 0.3 L (1.0-4.8) k/uL Macrocytosis Marked A ABG pH (7.35-7.45) ABG pCO2 (35-45) mmHg ABG pO2 (83-108) mmHg ABG HCO3 (21-25) mmol/L ABG Total CO2 (19-24) mmol/L ABG Hematocrit (34.0-46.0) % Hemoglobin (13.0-17.5) gm/dL Potassium 5.3 H (3.5-5.1) mmol/L Chloride 96 L (98-107) mmol/L Carbon Dioxide 41 H* (22-30) mmol/L BUN 46 H (9-20) mg/dL Creatinine 0.59 L (0.66-1.25) mg/dL Glucose 189 H (74-99) mg/dL POC Glucose (mg/dL) 192 H (70-110) mg/dL Hemoglobin A1c (0.0-6.0) % Total Bilirubin <0.1 L (0.2-1.3) mg/dL Alkaline Phosphatase 237 H (38-126) U/L Total Protein 5.0 L (6.3-8.2) g/dL Albumin 2.2 L (3.5-5.0) g/dL Microbiology - Last 24 Hours (Table) 04/10/22 09:19 Catheter Tip Culture - Preliminary Catheter Tip Assessment and Plan (1) COPD (chronic obstructive pulmonary disease) Current Visit: Yes Status: Acute Code(s): J44.9 - CHRONIC OBSTRUCTIVE PULMONARY DISEASE, UNSPECIFIED SNOMED Code(s): 87636089 (2) Acute exacerbation of chronic obstructive pulmonary disease Current Visit: No Status: Acute Code(s): J44.1 - CHRONIC OBSTRUCTIVE PULMONARY DISEASE W (ACUTE) EXACERBATION SNOMED Code(s): 655192917 (3) Acute respiratory failure Current Visit: No Status: Acute Code(s): J96.00 - ACUTE RESPIRATORY FAILURE, UNSP W HYPOXIA OR HYPERCAPNIA SNOMED Code(s): 19593664 (4) Pneumonia Current Visit: No Status: Acute Code(s): J18.9 - PNEUMONIA, UNSPECIFIED ORGANISM SNOMED Code(s): 146960521 (5) Hilar mass Current Visit: Yes Status: Acute Code(s): R91.8 - OTHER NONSPECIFIC ABNORMAL FINDING OF LUNG FIELD SNOMED Code(s): 043782669 Plan: Worsening hypoxia requiring increased O2 over the weekend Worsening prognosis. We'll continue to follow with multiple consultants.
[2022-04-12] MEDS: HEPARIN SODIUM,PORCINE/PF 5,000 UNIT/0.5 ML SYRINGE SQ SCH ×2 (08:31→20:59)
[2022-04-12] MEDS: QUEtiapine 50 MG TAB PO SCH ×3 (08:32→21:00)
[2022-04-12] MEDS: CHLORHEXIDINE GLUCONATE 15 ML CUP MUCOUS MEM SCH ×2 (08:32→20:59)
[2022-04-12] MEDS: CHOLECALCIFEROL 25 MCG (1000 IU) TABLET PO SCH (08:32)
[2022-04-12] MEDS: ASPIRIN 81 MG PO SCH (08:32)
[2022-04-12] MEDS: GABAPENTIN 300 MG CAP PO SCH ×3 (08:32→21:01)
[2022-04-12] MEDS: PANTOPRAZOLE 40 MG/10 ML VIAL IVP SCH (08:32)
[2022-04-12] MEDS: amLODIPine 10 MG TAB PO SCH (08:41)
[2022-04-12] MEDS ORDERED: ALBUTEROL NEBULIZED 2.5 MG/3 ML INHALATION SCH (08:45)
[2022-04-12] MEDS: cloNIDine HCL 0.2 MG TAB PO SCH ×3 (08:56→21:00)
[2022-04-12] MEDS: LORazepam 2 MG/ML INJ IV SCH ×3 (08:56→21:01)
--- NOTE | 2022-04-12 11:02 | P.PN ---
Subjective Progress Note Date: 04/12/22 CHIEF COMPLAINT: Respiratory failure HISTORY OF PRESENT ILLNESS: Patient remains in the ICU. He is status post tracheostomy and PEG tube placement on 04/06/22. Patient no longer having cuff leak. He is tolerating his tube feeds which are at goal at 63 mL per hour. He is now Covid positive. Afebrile. WBC 12.4 Hgb 8.0 PHYSICAL EXAM: VITAL SIGNS: Reviewed. GENERAL: Well-developed in no acute distress. HEENT: Tracheostomy site clean and dry and intact. ABDOMEN: Soft. Nondistended. Nontender. PEG tube site clean dry and intact NEUROLOGIC: intubated ASSESSMENT: 1. Severe protein calorie malnutrition 2. Acute respiratory failure requiring mechanical ventilation secondary to COPD, aspiration pneumonia and lung cancer 3. History of previous tracheostomy with scar tissue at the tracheostomy site likely contributing to patient's cuff leak PLAN: -Continue tube feeds -Continue ICU management and supportive care Physician Senior Engineering Associate note has been reviewed by physician. Signing provider agrees with the documented findings, assessment, and plan of care. Objective - Vital Signs Vital signs: Vital Signs Temp 98.8 F 04/12/22 08:00 Pulse 90 04/12/22 09:00 Resp 25 H 04/12/22 09:00 BP 137/50 04/11/22 22:00 Pulse Ox 89 L 04/12/22 09:00 FiO2 70 04/12/22 10:58 Intake & Output 04/11/22 04/12/22 04/12/22 18:59 06:59 18:59 Intake Total 3135.999 6330.768 214.4 Output Total 925 1275 190 Balance 142.000 52.768 24.4 Weight 89 kg Intake: IV 253 299 46 Lactated ringers 220 260 40 pressure bag 33 39 6 Intake, IV Titration 31.000 119.768 42.4 Amount Clevidipine Butyrate 25 31.000 119.768 42.4 mg In Empty Bag 1 bag @ 1 MG/HR 2 mls/hr IV .Q24H [facility] Rx#:[id number] Tube Feeding 693 819 126 Other 90 90 Output: Urine 925 1275 190 Other: Voiding Method Indwelling Catheter Indwelling Catheter Indwelling Catheter ABP, PAP, CO, CI - Last Documented Arterial Blood Pressure 152/51 - Labs CBC & Chem 7: 04/12/22 05:10 04/12/22 05:10 Labs: Abnormal Lab Results - Last 24 Hours (Table) 04/10/22 04/11/22 04/11/22 Range/Units 03:30 11:44 14:41 WBC (3.8-10.6) k/uL RBC (4.30-5.90) m/uL Hgb (13.0-17.5) gm/dL Hct (39.0-53.0) % MCV (80.0-100.0) fL MCHC (31.0-37.0) g/dL RDW (11.5-15.5) % Neutrophils # (1.3-7.7) k/uL Lymphocytes # (1.0-4.8) k/uL Macrocytosis ABG pH (7.35-7.45) ABG pCO2 (35-45) mmHg ABG pO2 (83-108) mmHg ABG HCO3 (21-25) mmol/L ABG Total CO2 (19-24) mmol/L ABG Hematocrit (34.0-46.0) % Hemoglobin (13.0-17.5) gm/dL Potassium (3.5-5.1) mmol/L Chloride (98-107) mmol/L Carbon Dioxide (22-30) mmol/L BUN (9-20) mg/dL Creatinine (0.66-1.25) mg/dL Glucose (74-99) mg/dL POC Glucose (mg/dL) 153 H 167 H (70-110) mg/dL Hemoglobin A1c 7.6 H (0.0-6.0) % Total Bilirubin (0.2-1.3) mg/dL Alkaline Phosphatase (38-126) U/L Total Protein (6.3-8.2) g/dL Albumin (3.5-5.0) g/dL 04/11/22 04/12/22 04/12/22 Range/Units 18:13 00:08 05:08 WBC (3.8-10.6) k/uL RBC (4.30-5.90) m/uL Hgb (13.0-17.5) gm/dL Hct (39.0-53.0) % MCV (80.0-100.0) fL MCHC (31.0-37.0) g/dL RDW (11.5-15.5) % Neutrophils # (1.3-7.7) k/uL Lymphocytes # (1.0-4.8) k/uL Macrocytosis ABG pH 7.31 L (7.35-7.45) ABG pCO2 88 H* (35-45) mmHg ABG pO2 71 L (83-108) mmHg ABG HCO3 44 H* (21-25) mmol/L ABG Total CO2 47 H (19-24) mmol/L ABG Hematocrit 24 L (34.0-46.0) % Hemoglobin 7.8 L (13.0-17.5) gm/dL Potassium (3.5-5.1) mmol/L Chloride (98-107) mmol/L Carbon Dioxide (22-30) mmol/L BUN (9-20) mg/dL Creatinine (0.66-1.25) mg/dL Glucose (74-99) mg/dL POC Glucose (mg/dL) 207 H 217 H (70-110) mg/dL Hemoglobin A1c (0.0-6.0) % Total Bilirubin (0.2-1.3) mg/dL Alkaline Phosphatase (38-126) U/L Total Protein (6.3-8.2) g/dL Albumin (3.5-5.0) g/dL 04/12/22 04/12/22 04/12/22 Range/Units 05:10 05:10 05:13 WBC 12.4 H (3.8-10.6) k/uL RBC 2.70 L (4.30-5.90) m/uL Hgb 8.0 L (13.0-17.5) gm/dL Hct 27.5 L (39.0-53.0) % MCV 101.8 H (80.0-100.0) fL MCHC 29.1 L (31.0-37.0) g/dL RDW 20.4 H (11.5-15.5) % Neutrophils # 11.5 H (1.3-7.7) k/uL Lymphocytes # 0.3 L (1.0-4.8) k/uL Macrocytosis Marked A ABG pH (7.35-7.45) ABG pCO2 (35-45) mmHg ABG pO2 (83-108) mmHg ABG HCO3 (21-25) mmol/L ABG Total CO2 (19-24) mmol/L ABG Hematocrit (34.0-46.0) % Hemoglobin (13.0-17.5) gm/dL Potassium 5.3 H (3.5-5.1) mmol/L Chloride 96 L (98-107) mmol/L Carbon Dioxide 41 H* (22-30) mmol/L BUN 46 H (9-20) mg/dL Creatinine 0.59 L (0.66-1.25) mg/dL Glucose 189 H (74-99) mg/dL POC Glucose (mg/dL) 192 H (70-110) mg/dL Hemoglobin A1c (0.0-6.0) % Total Bilirubin <0.1 L (0.2-1.3) mg/dL Alkaline Phosphatase 237 H (38-126) U/L Total Protein 5.0 L (6.3-8.2) g/dL Albumin 2.2 L (3.5-5.0) g/dL Microbiology - Last 24 Hours (Table) 04/10/22 09:19 Catheter Tip Culture - Final Catheter Tip
[2022-04-12] MEDS: methylPREDNISolone SOD SUCCI 125 MG/2 ML VIAL IV SCH ×2 (11:10→17:37)
[2022-04-12 11:17] LABS: Glucose,Whole Blood 192 mg/dL (70-110)
--- NOTE | 2022-04-12 12:22 | P.PN ---
Subjective Progress Note Date: 04/12/22 On today's evaluation of a 2021, the patient is being seen for a follow-up. This patient has advanced COPD with a baseline FEV1 of 34% of predicted and currently is on a mechanical ventilator. He was intubated on 02/28/2022 and he was given a tracheostomy tube and a PEG tube on 03/06/2022. The patient has a Bivona tracheostomy tube #7. The patient is currently off sedation. He is receiving Dilaudid 1 mg every 2-3 hours when necessary basis in addition to Seroquel 50 mg by mouth 3 times a day. He has been taken off propofol for now. He is arousable and follows some simple commands. He is still having labored breathing. This morning, he was tachypneic and he was at times double stacking his breath. He was on a VC plus mode of mechanical ventilation at the rate of 20 with a tidal volume of 450 with an FiO2 of 65% with a PEEP of 5. The peak airway pressure is elevated at 42. The static pressure is 24. The patient remains bronchospastic and wheezy. Respiratory secretions are still active and previous cultures have shown a combination of Serratia and Haemophilus influenza and this is cultures based on the one done on 03/24/2022. The blood gases from today shows a pH of 7.31 with a pCO2 of 88 and pO2 of 71. The patient is afebrile. The white cell count is at 4.4 with a hemoglobin of 8 and a platelet count of 391. Sodium is at 142 with a potassium level of 5.3 chloride is 96 bicarb is 41 with a mean of 46 and a creatinine of 0.9. The fluid balance is positive for on 60 mL over the past 24 hours. The patient is receiving vitals H P at the rate of 63 mL an hour. No other significant events overnight. His blood pressure remains elevated and the patient remains on Cleviprex running at 20 mg an hour for blood pressure control. Objective - Vital Signs Vital signs: Vital Signs Temp 98.8 F 04/12/22 08:00 Pulse 90 04/12/22 09:00 Resp 25 H 04/12/22 09:00 BP 137/50 04/11/22 22:00 Pulse Ox 89 L 04/12/22 09:00 FiO2 70 04/12/22 10:58 Intake & Output 04/11/22 04/12/22 04/12/22 18:59 06:59 18:59 Intake Total 0120.042 0326.768 472.4 Output Total 925 1275 390 Balance 142.000 52.768 82.4 Weight 89 kg 89 kg Intake: IV 253 299 115 Lactated ringers 220 260 100 pressure bag 33 39 15 Intake, IV Titration 31.000 119.768 42.4 Amount Clevidipine Butyrate 25 31.000 119.768 42.4 mg In Empty Bag 1 bag @ 1 MG/HR 2 mls/hr IV [facility] Rx#:[id number] Tube Feeding 693 819 315 Other 90 90 Output: Urine 925 1275 390 Other: Voiding Method Indwelling Catheter Indwelling Catheter Indwelling Catheter ABP, PAP, CO, CI - Last Documented Arterial Blood Pressure 152/51 - Exam No acute distress, currently on propofol, with a midline tracheostomy tube. The patient is a Bivona tracheostomy tube in place. The patient stated the mechanical ventilator. Labored breathing at times double stacking. He has a barrel chest typical of COPD. He is currently off sedation. Head exam was generally normal. There was no scleral icterus or corneal arcus. Mucous membranes were moist. HEENT examination is grossly unremarkable. Tracheostomy site is dry clean and intact and the patient has a Bivona tracheostomy tube in place Neck supple. Full range of motion. No adenopathy thyromegaly or neck vein distention. Cardiovascular examination reveals regular rhythm rate. S1-S2 normal. No S3 or S4. No discernible murmur noted. Heart sounds are distant. Lungs reveal scattered bilateral rhonchi. Breath sounds equal bilaterally wheezes. No crackles. Abdomen soft bowel sounds are heard. No masses or tenderness. PEG tube noted. Examination of the extremities revealed easily palpable radial, femoral and pedal pulses. There was no cyanosis, clubbing or edema. Examination of the skin revealed no evidence of significant rashes, suspicious appearing nevi or other concerning lesions. Neurologic examination ; The patient follows some simple commands. He is able to withdraw the patient was some additional 4 extremities. Pupils are equal and reactive to light. - Labs CBC & Chem 7: 04/12/22 05:10 04/12/22 05:10 Labs: Abnormal Lab Results - Last 24 Hours (Table) 04/10/22 04/11/22 04/11/22 Range/Units 03:30 14:41 18:13 WBC (3.8-10.6) k/uL RBC (4.30-5.90) m/uL Hgb (13.0-17.5) gm/dL Hct (39.0-53.0) % MCV (80.0-100.0) fL MCHC (31.0-37.0) g/dL RDW (11.5-15.5) % Neutrophils # (1.3-7.7) k/uL Lymphocytes # (1.0-4.8) k/uL Macrocytosis ABG pH (7.35-7.45) ABG pCO2 (35-45) mmHg ABG pO2 (83-108) mmHg ABG HCO3 (21-25) mmol/L ABG Total CO2 (19-24) mmol/L ABG Hematocrit (34.0-46.0) % Hemoglobin (13.0-17.5) gm/dL Potassium (3.5-5.1) mmol/L Chloride (98-107) mmol/L Carbon Dioxide (22-30) mmol/L BUN (9-20) mg/dL Creatinine (0.66-1.25) mg/dL Glucose (74-99) mg/dL POC Glucose (mg/dL) 167 H 207 H (70-110) mg/dL Hemoglobin A1c 7.6 H (0.0-6.0) % Total Bilirubin (0.2-1.3) mg/dL Alkaline Phosphatase (38-126) U/L Total Protein (6.3-8.2) g/dL Albumin (3.5-5.0) g/dL 04/12/22 04/12/22 04/12/22 Range/Units 00:08 05:08 05:10 WBC 12.4 H (3.8-10.6) k/uL RBC 2.70 L (4.30-5.90) m/uL Hgb 8.0 L (13.0-17.5) gm/dL Hct 27.5 L (39.0-53.0) % MCV 101.8 H (80.0-100.0) fL MCHC 29.1 L (31.0-37.0) g/dL RDW 20.4 H (11.5-15.5) % Neutrophils # 11.5 H (1.3-7.7) k/uL Lymphocytes # 0.3 L (1.0-4.8) k/uL Macrocytosis Marked A ABG pH 7.31 L (7.35-7.45) ABG pCO2 88 H* (35-45) mmHg ABG pO2 71 L (83-108) mmHg ABG HCO3 44 H* (21-25) mmol/L ABG Total CO2 47 H (19-24) mmol/L ABG Hematocrit 24 L (34.0-46.0) % Hemoglobin 7.8 L (13.0-17.5) gm/dL Potassium (3.5-5.1) mmol/L Chloride (98-107) mmol/L Carbon Dioxide (22-30) mmol/L BUN (9-20) mg/dL Creatinine (0.66-1.25) mg/dL Glucose (74-99) mg/dL POC Glucose (mg/dL) 217 H (70-110) mg/dL Hemoglobin A1c (0.0-6.0) % Total Bilirubin (0.2-1.3) mg/dL Alkaline Phosphatase (38-126) U/L Total Protein (6.3-8.2) g/dL Albumin (3.5-5.0) g/dL 04/12/22 04/12/22 04/12/22 Range/Units 05:10 05:13 11:14 WBC (3.8-10.6) k/uL RBC (4.30-5.90) m/uL Hgb (13.0-17.5) gm/dL Hct (39.0-53.0) % MCV (80.0-100.0) fL MCHC (31.0-37.0) g/dL RDW (11.5-15.5) % Neutrophils # (1.3-7.7) k/uL Lymphocytes # (1.0-4.8) k/uL Macrocytosis ABG pH (7.35-7.45) ABG pCO2 (35-45) mmHg ABG pO2 (83-108) mmHg ABG HCO3 (21-25) mmol/L ABG Total CO2 (19-24) mmol/L ABG Hematocrit (34.0-46.0) % Hemoglobin (13.0-17.5) gm/dL Potassium 5.3 H (3.5-5.1) mmol/L Chloride 96 L (98-107) mmol/L Carbon Dioxide 41 H* (22-30) mmol/L BUN 46 H (9-20) mg/dL Creatinine 0.59 L (0.66-1.25) mg/dL Glucose 189 H (74-99) mg/dL POC Glucose (mg/dL) 192 H 192 H (70-110) mg/dL Hemoglobin A1c (0.0-6.0) % Total Bilirubin <0.1 L (0.2-1.3) mg/dL Alkaline Phosphatase 237 H (38-126) U/L Total Protein 5.0 L (6.3-8.2) g/dL Albumin 2.2 L (3.5-5.0) g/dL Microbiology - Last 24 Hours (Table) 04/10/22 09:19 Catheter Tip Culture - Final Catheter Tip Assessment and Plan Plan: Acute on chronic hypoxemic and hypercapnic respiratory failure, status post intubation and mechanical ventilation on 03/31/2022, status post tracheostomy and PEG tube placement 04/06/2022, for failure to wean from mechanical vent ilation. On today's evaluation, the patient remains bronchospastic and wheezy with elevated airway pressures. Blood gases showing an acute abdominal chronic hypoxic and hypercapnic respiratory failure. Chest x-ray findings are stable from yesterday the tracheostomy tube remains in a good location. There is evidence of multifocal airspace opacity with a left hilar mass consistent with lung cancer. Bilateral pneumonia and sepsis, secondary to Serratia and Haemophilus. The patient completed the course of antibiotics Non-small cell lung cancer with a left hilar mass, diagnosed in December 2021 and the patient was given systemic chemotherapy Recent positive test for coronavirus, with possible coronavirus associated pneumonia. Acute exacerbation of secondary to above currently intubated on mechanical ventilator Enteral feeding for nutritional support and the patient has a PEG tube in place Previous history of respiratory failure, requiring intubation, and subsequent tracheostomy. Generalized anxiety disorder. The patient is currently on Seroquel and the patient has apparently has been taking Xanax on outpatient basis Severe/stage III/stage IV COPD, with an FEV1 that's 34%. Degenerative joint disease. Acute kidney injury, recovered Plan: Continue Seroquel 50 mg by mouth 3 times a day Continue Dilaudid Started patient Ativan 1 mg IV 3 times a day scheduled Continue ventilator support necessary vent changes were done. I would drop the tidal volume to 300 and increased the expiratory time 0.9 ms with an FiO2 of 70% Continue bronchodilators Continue steroids Completed the course of antibiotics Enteral feeding for nutritional support Discharge the patient Norvasc 10 mg by mouth daily and clonidine 0.5 mg 3 times a day, and gradually wean off the Cleviprex Continue enteral feeding for nutritional support difficult to wean based on his advanced COPD we'll continue to follow make further recommendations based on his progress. This evaluation was done and more than 30 minutes. This is a critically care evaluation. Long-term prognosis poor baseline above-mentioned comorbidities.
[2022-04-12] MEDS: ALBUTEROL HFA INHALER INHALATION SCH ×4 (12:33→23:37)
[2022-04-12 17:30] LABS: Glucose,Whole Blood 146 mg/dL (70-110)
[2022-04-12] MEDS: LACTATED RINGERS 1,000 ML IV SCH (17:37)
[2022-04-12] MEDS: SYMBICORT 160-4.5 MCG INHALER INHALATION SCH (19:20)
[2022-04-12] MEDS: LATANOPROST 0.005% OPHTH DROPS 2.5 ML BTL BOTH EYES SCH (20:59)
[2022-04-12] MEDS: ATORVASTATIN 10 MG TAB PO SCH (20:59)
[2022-04-13 00:54] LABS: Glucose,Whole Blood 225 mg/dL (70-110)
[2022-04-13] MEDS: INSULIN ASPART (NovoLOG) 100 UNIT/ML VIAL SQ SCH ×8 (00:56→18:14)
[2022-04-13] MEDS: methylPREDNISolone SOD SUCCI 125 MG/2 ML VIAL IV SCH ×4 (00:57→18:00)
[2022-04-13] MEDS: ALBUTEROL HFA INHALER INHALATION SCH ×6 (03:48→23:24)
[2022-04-13 04:42] LABS: Anisocytosis Moderate; HCT 30.6 % (39.0-53.0); HGB 8.6 gm/dL (13.0-17.5); Hypochromasia Marked; MCHC 28.1 g/dL (31.0-37.0); Macrocytosis Marked; Mean Platelet Volume 7.9; Platelet Count 423 k/uL (150-450); RBC 2.86 m/uL (4.30-5.90); RDW 20.1 % (11.5-15.5); WBC 13.7 k/uL (3.8-10.6)
[2022-04-13] MEDS: HYDROmorphone 1 MG/ML 1 ML SYRINGE IVP SCH ×12 (04:57→23:03)
[2022-04-13] MEDS: NOREPINEPHRINE 4 MG in SODIUM CHLORIDE 0.9% 250 ML IV SCH ×2 (04:57→18:50)
[2022-04-13 05:05] LABS: Glucose,Whole Blood 197 mg/dL (70-110)
[2022-04-13 05:09] LABS: African American GFR (CKD) >90 (>60 ml/min/1.73 sqM); Blood Urea Nitrogen 58 mg/dL (9-20); Calcium 9.7 mg/dL (8.4-10.2); Chloride 95 mmol/L (98-107); Glucose 206 mg/dL (74-99); Non-African American GFR(CKD) >90 (>60 ml/min/1.73 sqM); Sodium 146 mmol/L (137-145)
[2022-04-13 05:15] LABS: Anion Gap 4 mmol/L
[2022-04-13 05:25] LABS: Carbon Dioxide 47 mmol/L (22-30)
[2022-04-13 06:15] LABS: ABG Hematocrit 27 % (34.0-46.0); ABG Oxygen Saturation 93.5 % (94-97); ABG PO2 73 mmHg (83-108)
[2022-04-13] MEDS ORDERED: SODIUM BICARB 8.4% 50 ML SYR (1 MEQ/ML) IV STA ×2 (06:23→06:25)
[2022-04-13 06:34] LABS: ABG PCO2 >120 mmHg (35-45); ABG PH 7.08 (7.35-7.45); Allen Test Performed? No
--- NOTE | 2022-04-13 07:54 | XR ---
EXAMINATION TYPE: XR chest 1V portable DATE OF EXAM: 04/13/2022 5:53 AM COMPARISON: Chest radiographs from 04/11/2022, CTA chest 04/03/2022. TECHNIQUE: XR chest 1V portable Frontal view of the chest. CLINICAL INDICATION:Male, 71 years old with history of ET tube, covid; FINDINGS: Limited examination with the left costal angle not included. Lungs/Pleura: Similar multifocal airspace opacities. Redemonstration of left hilar mass. No pneumotho rax or pleural effusion. Increased lucency in the lung apices remains present. Pulmonary vascularity: Unremarkable. Heart/mediastinum: Cardiomediastinal silhouette is unremarkable. Musculoskeletal: No acute osseous pathology. Lines/Tubes: Tracheostomy cannula tip projects over the trachea in stable position. Left-sided PICC with distal tip at the superior vena cava/brachiocephalic confluence. IMPRESSION: 1. Similar multifocal airspace opacities. 2. Similar left hilar mass which is better appreciated on prior CTA chest 04/03/2022. 3. COPD changes.
[2022-04-13] MEDS: SYMBICORT 160-4.5 MCG INHALER INHALATION SCH ×2 (08:19→19:34)
--- NOTE | 2022-04-13 08:42 | P.PN ---
Subjective Principal diagnosis: Respiratory failure This is 71 white male with known history of COPD who is not intubated but slowly weaning. The patient is on FiO2 70% Still requiring pressors although slowly decreasing Tracheostomy is present. Left hilar mass is noted on x-ray. The patient is spacing. Prognosis is guarded. Multiple consultants. I had a long discussion with the this morning and suggested comfort measures. She will discuss this with her family. Prognosis is becoming more poor Objective - Vital Signs Vital signs: Vital Signs Temp 98.1 F 04/13/22 04:00 Pulse 96 04/13/22 07:00 Resp 40 H 04/13/22 07:00 BP 116/66 04/12/22 10:00 Pulse Ox 96 04/13/22 07:00 FiO2 70 04/13/22 07:00 Intake & Output 04/12/22 04/13/22 04/13/22 18:59 06:59 18:59 Intake Total 984.149 276 Output Total 840 1000 Balance 144.149 -724 Weight 89 kg 86.5 kg Intake: IV 253 276 Lactated ringers 220 240 pressure bag 33 36 Intake, IV Titration 137.149 0 Amount Clevidipine Butyrate 25 137.149 0 mg In Empty Bag 1 bag @ 1 MG/HR 2 mls/hr IV .Q24H [facility] Rx#:[id number] Tube Feeding 594 Output: Urine 840 1000 Other: Voiding Method Indwelling Catheter Indwelling Catheter ABP, PAP, CO, CI - Last Documented Arterial Blood Pressure 156/53 - Constitutional General appearance: Present: average body habitus - EENT Eyes: Absent: abnormal pupil - Neck Neck: Absent: lymphadenopathy - Respiratory Respiratory: bilateral: wheezing - Cardiovascular Rhythm: regular Heart sounds: normal: S1, S2 Abnormal Heart Sounds: Absent: S3 Gallop - Gastrointestinal General gastrointestinal: Present: soft. Absent: tenderness - Psychiatric Psychiatric: Absent: A&O x's 3, appropriate affect - Labs CBC & Chem 7: 04/13/22 04:25 04/13/22 04:25 Labs: Abnormal Lab Results - Last 24 Hours (Table) 04/12/22 04/12/22 04/13/22 Range/Units 11:14 17:27 00:52 WBC (3.8-10.6) k/uL RBC (4.30-5.90) m/uL Hgb (13.0-17.5) gm/dL Hct (39.0-53.0) % MCV (80.0-100.0) fL MCHC (31.0-37.0) g/dL RDW (11.5-15.5) % Macrocytosis ABG pH (7.35-7.45) ABG pCO2 (35-45) mmHg ABG pO2 (83-108) mmHg ABG O2 Saturation (94-97) % ABG Hematocrit (34.0-46.0) % Hemoglobin (13.0-17.5) gm/dL Sodium (137-145) mmol/L Potassium (3.5-5.1) mmol/L Chloride (98-107) mmol/L Carbon Dioxide (22-30) mmol/L BUN (9-20) mg/dL Glucose (74-99) mg/dL POC Glucose (mg/dL) 192 H 146 H 225 H (70-110) mg/dL 04/13/22 04/13/22 04/13/22 Range/Units 04:25 04:25 05:03 WBC 13.7 H (3.8-10.6) k/uL RBC 2.86 L (4.30-5.90) m/uL Hgb 8.6 L (13.0-17.5) gm/dL Hct 30.6 L (39.0-53.0) % MCV 107.0 H D (80.0-100.0) fL MCHC 28.1 L (31.0-37.0) g/dL RDW 20.1 H (11.5-15.5) % Macrocytosis Marked A ABG pH (7.35-7.45) ABG pCO2 (35-45) mmHg ABG pO2 (83-108) mmHg ABG O2 Saturation (94-97) % ABG Hematocrit (34.0-46.0) % Hemoglobin (13.0-17.5) gm/dL Sodium 146 H (137-145) mmol/L Potassium 6.0 H (3.5-5.1) mmol/L Chloride 95 L (98-107) mmol/L Carbon Dioxide 47 H* (22-30) mmol/L BUN 58 H (9-20) mg/dL Glucose 206 H (74-99) mg/dL POC Glucose (mg/dL) 197 H (70-110) mg/dL 04/13/22 Range/Units 06:13 WBC (3.8-10.6) k/uL RBC (4.30-5.90) m/uL Hgb (13.0-17.5) gm/dL Hct (39.0-53.0) % MCV (80.0-100.0) fL MCHC (31.0-37.0) g/dL RDW (11.5-15.5) % Macrocytosis ABG pH 7.08 L* (7.35-7.45) ABG pCO2 >120 H* (35-45) mmHg ABG pO2 73 L (83-108) mmHg ABG O2 Saturation 93.5 L (94-97) % ABG Hematocrit 27 L (34.0-46.0) % Hemoglobin 8.8 L (13.0-17.5) gm/dL Sodium (137-145) mmol/L Potassium (3.5-5.1) mmol/L Chloride (98-107) mmol/L Carbon Dioxide (22-30) mmol/L BUN (9-20) mg/dL Glucose (74-99) mg/dL POC Glucose (mg/dL) (70-110) mg/dL Microbiology - Last 24 Hours (Table) 04/10/22 09:19 Catheter Tip Culture - Final Catheter Tip Assessment and Plan (1) COPD (chronic obstructive pulmonary disease) Current Visit: Yes Status: Acute Code(s): J44.9 - CHRONIC OBSTRUCTIVE PULMONARY DISEASE, UNSPECIFIED SNOMED Code(s): 12604215 (2) Acute exacerbation of chronic obstructive pulmonary disease Current Visit: No Status: Acute Code(s): J44.1 - CHRONIC OBSTRUCTIVE PULMONARY DISEASE W (ACUTE) EXACERBATION SNOMED Code(s): 070867383 (3) Acute respiratory failure Current Visit: No Status: Acute Code(s): J96.00 - ACUTE RESPIRATORY FAILURE, UNSP W HYPOXIA OR HYPERCAPNIA SNOMED Code(s): 65247757 (4) Pneumonia Current Visit: No Status: Acute Code(s): J18.9 - PNEUMONIA, UNSPECIFIED ORGANISM SNOMED Code(s): 604802067 (5) Hilar mass Current Visit: Yes Status: Acute Code(s): R91.8 - OTHER NONSPECIFIC ABNORMAL FINDING OF LUNG FIELD SNOMED Code(s): 819677646 Plan: Worsening hypoxia requiring increased O2 over the weekend Worsening prognosis. ABG shows more acidosis and CO2 retention even with 70% FiO2. We'll continue to follow with multiple consultants. Discussion with the this morning. I'm hopeful to change him to comfort care
--- NOTE | 2022-04-13 09:39 | P.PN ---
Subjective Progress Note Date: 04/13/22 On today's evaluation of a 04/12, the patient is being seen for a follow- up. This patient has advanced COPD with a baseline FEV1 of 34% of predicted and currently is on a mechanical ventilator. He was intubated on 02/28/2022 and he was given a tracheostomy tube and a PEG tube on 03/06/2022. The patient has a Bivona tracheostomy tube #7. The patient is currently off sedation. He is receiving Dilaudid 1 mg every 2-3 hours when necessary basis in addition to Seroquel 50 mg by mouth 3 times a day. He has been taken off propofol for now. He is arousable and follows some simple commands. He is still having labored breathing. This morning, he was tachypneic and he was at times double stacking his breath. He was on a VC plus mode of mechanical ventilation at the rate of 20 with a tidal volume of 450 with an FiO2 of 65% with a PEEP of 5. The peak airway pressure is elevated at 42. The static pressure is 24. The patient remains bronchospastic and wheezy. Respiratory secretions are still active and previous cultures have shown a combination of Serratia and Haemophilus influenza and this is cultures based on the one done on 03/24/2022. The blood gases from today shows a pH of 7.31 with a pCO2 of 88 and pO2 of 71. The patient is afebrile. The white cell count is at 4.4 with a hemoglobin of 8 and a platelet count of 391. Sodium is at 142 with a potassium level of 5.3 chloride is 96 bicarb is 41 with a mean of 46 and a creatinine of 0.9. The fluid balance is positive for on 60 mL over the past 24 hours. The patient is receiving vitals H P at the rate of 63 mL an hour. No other significant events overnight. His blood pressure remains elevated and the patient remains on Cleviprex running at 20 mg an hour for blood pressure control. 04/13/2022, patient is being seen for a follow-up. The patient remains on a mechanical ventilator. He is quite tachypneic and the patient is asynchronous the mechanical ventilator and this morning is having excess amount of leak on the tracheostomy tube. Based on that, I personally tube another centimeter and with repositioning, the leaks improved and the patient was switched to a pressure control mode of mechanical ventilation. Earlier to that, the patient was an assist-control mode of mechanical ventilation, volume cycle and the patient was on a tidal volume of 300 with a rate of seen and FiO2 of 70% with a fecal 5. Morning blood gases showed a pH of 7.08 with a pCO2 of 120 and pO2 of 73. Based on that, the ventilator setting was changed to a pressure control mode mechanical ventilation. The chest x-ray showing diffuse bilateral pulmonary infiltrates with worsening in the left perihilar pulmonary infiltrate in the left lower lobe pulmonary infiltrate and the patient has multifocal airspace disease. The left hilar mass was again demonstrated. There is no evidence of any pneumothorax. Tracheostomy tube is in a good location the patient had background COPD. Hemodynamically, the patient's blood pressure is under better control and the patient is currently off Cleviprex. The patient is currently on a combination of Norvasc and clonidine which is controlled his blood pressure more effectively. He is receiving enteral feeding for nutritional support and his on vital 83 at the rate of 30 mL an hour. In terms of sedation, the patient is receiving propofol. He is on a combination of Seroquel, Dilaudid and Ativan for now all of them are being given [id number]. He withdraws only to deep painful stimulation. Does not follow any commands.. The has been on bronchodilators and is also on IV Solu Medrol dose of 60 mg every 6 hours. Extensively bronchospastic and weak. The white cell count of 13.7 and hemoglobin at 8.6 and a platelet count of 423. Sodium is 146 with a potassium level of 6 and elevation of the potassium level is probably related to the respiratory acidosis. Serum bicarbonate 47.. With a BUN of 58 and a creatinine of 0.7. Objective - Vital Signs Vital signs: Vital Signs Temp 98.1 F 04/13/22 04:00 Pulse 96 04/13/22 07:00 Resp 40 H 04/13/22 07:00 BP 116/66 04/12/22 10:00 Pulse Ox 96 04/13/22 07:00 FiO2 70 04/13/22 07:00 Intake & Output 04/12/22 04/13/22 04/13/22 18:59 06:59 18:59 Intake Total 984.149 276 Output Total 840 1000 Balance 144.149 -724 Weight 89 kg 86.5 kg Intake: IV 253 276 Lactated ringers 220 240 pressure bag 33 36 Intake, IV Titration 137.149 0 Amount Clevidipine Butyrate 25 137.149 0 mg In Empty Bag 1 bag @ 1 MG/HR 2 mls/hr IV .Q24H [facility] Rx#:[id number] Tube Feeding 594 Output: Urine 840 1000 Other: Voiding Method Indwelling Catheter Indwelling Catheter ABP, PAP, CO, CI - Last Documented Arterial Blood Pressure 156/53 - Exam No acute distress, currently on propofol, with a midline tracheostomy tube. The patient is a Bivona tracheostomy tube in place. The patient stated the mechanical ventilator. Labored breathing at times double stacking. He has a barrel chest typical of COPD. He is currently off sedation. Head exam was generally normal. There was no scleral icterus or corneal arcus. Mucous membranes were moist. HEENT examination is grossly unremarkable. Tracheostomy site is dry clean and intact and the patient has a Bivona tracheostomy tube in place Neck supple. Full range of motion. No adenopathy thyromegaly or neck vein distention. Cardiovascular examination reveals regular rhythm rate. S1-S2 normal. No S3 or S4. No discernible murmur noted. Heart sounds are distant. Lungs reveal scattered bilateral rhonchi. Breath sounds equal bilaterally wheezes. No crackles. Abdomen soft bowel sounds are heard. No masses or tenderness. PEG tube noted. Examination of the extremities revealed easily palpable radial, femoral and pedal pulses. There was no cyanosis, clubbing or edema. Examination of the skin revealed no evidence of significant rashes, suspicious appearing nevi or other concerning lesions. Neurologic examination ; The patient follows some simple commands. He is able to withdraw the patient was some additional 4 extremities. Pupils are equal and reactive to light. - Labs CBC & Chem 7: 04/13/22 04:25 04/13/22 04:25 Labs: Abnormal Lab Results - Last 24 Hours (Table) 04/12/22 04/12/22 04/13/22 Range/Units 11:14 17:27 00:52 WBC (3.8-10.6) k/uL RBC (4.30-5.90) m/uL Hgb (13.0-17.5) gm/dL Hct (39.0-53.0) % MCV (80.0-100.0) fL MCHC (31.0-37.0) g/dL RDW (11.5-15.5) % Macrocytosis ABG pH (7.35-7.45) ABG pCO2 (35-45) mmHg ABG pO2 (83-108) mmHg ABG O2 Saturation (94-97) % ABG Hematocrit (34.0-46.0) % Hemoglobin (13.0-17.5) gm/dL Sodium (137-145) mmol/L Potassium (3.5-5.1) mmol/L Chloride (98-107) mmol/L Carbon Dioxide (22-30) mmol/L BUN (9-20) mg/dL Glucose (74-99) mg/dL POC Glucose (mg/dL) 192 H 146 H 225 H (70-110) mg/dL 04/13/22 04/13/22 04/13/22 Range/Units 04:25 04:25 05:03 WBC 13.7 H (3.8-10.6) k/uL RBC 2.86 L (4.30-5.90) m/uL Hgb 8.6 L (13.0-17.5) gm/dL Hct 30.6 L (39.0-53.0) % MCV 107.0 H D (80.0-100.0) fL MCHC 28.1 L (31.0-37.0) g/dL RDW 20.1 H (11.5-15.5) % Macrocytosis Marked A ABG pH (7.35-7.45) ABG pCO2 (35-45) mmHg ABG pO2 (83-108) mmHg ABG O2 Saturation (94-97) % ABG Hematocrit (34.0-46.0) % Hemoglobin (13.0-17.5) gm/dL Sodium 146 H (137-145) mmol/L Potassium 6.0 H (3.5-5.1) mmol/L Chloride 95 L (98-107) mmol/L Carbon Dioxide 47 H* (22-30) mmol/L BUN 58 H (9-20) mg/dL Glucose 206 H (74-99) mg/dL POC Glucose (mg/dL) 197 H (70-110) mg/dL 04/13/22 Range/Units 06:13 WBC (3.8-10.6) k/uL RBC (4.30-5.90) m/uL Hgb (13.0-17.5) gm/dL Hct (39.0-53.0) % MCV (80.0-100.0) fL MCHC (31.0-37.0) g/dL RDW (11.5-15.5) % Macrocytosis ABG pH 7.08 L* (7.35-7.45) ABG pCO2 >120 H* (35-45) mmHg ABG pO2 73 L (83-108) mmHg ABG O2 Saturation 93.5 L (94-97) % ABG Hematocrit 27 L (34.0-46.0) % Hemoglobin 8.8 L (13.0-17.5) gm/dL Sodium (137-145) mmol/L Potassium (3.5-5.1) mmol/L Chloride (98-107) mmol/L Carbon Dioxide (22-30) mmol/L BUN (9-20) mg/dL Glucose (74-99) mg/dL POC Glucose (mg/dL) (70-110) mg/dL Microbiology - Last 24 Hours (Table) 04/10/22 09:19 Catheter Tip Culture - Final Catheter Tip Assessment and Plan Plan: Acute on chronic hypoxemic and hypercapnic respiratory failure, status post intubation and mechanical ventilation on 03/31/2022, status post tracheostomy and PEG tube placement 04/06/2022, for failure to wean from mechanical ventilation. On today's evaluation, the patient remains bronchospastic and wheezy with elevated airway pressures. Blood gases showing an acute abdominal chronic hypoxic and hypercapnic respiratory failure. Chest x-ray findings are stable from yesterday the tracheostomy tube remains in a good location. There is evidence of multifocal airspace opacity with a left hilar mass consistent with lung cancer.morning blood gases showed worsening in the respiratory acidosis on volume cycle mechanical ventilation assist control mode. At the same time the patient was having excessive leaks around the tracheostomy tube. Bilateral pneumonia and sepsis, secondary to Serratia and Haemophilus. The patient completed the course of antibiotics Non-small cell lung cancer with a left hilar mass, diagnosed in December 2021 and the patient was given systemic chemotherapy Recent positive test for coronavirus, with possible coronavirus associated pneumonia. Acute exacerbation of secondary to above currently intubated on mechanical ventilator Enteral feeding for nutritional support and the patient has a PEG tube in place Previous history of respiratory failure, requiring intubation, and subsequent tracheostomy. Generalized anxiety disorder. The patient is currently on Seroquel and the pat ient has apparently has been taking Xanax on outpatient basis Severe/stage III/stage IV COPD, with an FEV1 that's 34%. Degenerative joint disease. Acute kidney injury, recovered Plan: was switched this patient to a pressure control mode of mechanical ventilation. We'll put him on a pressure control of 25 with a PEEP of 5 and a rate of 22 with an FiO2 of 50%. The follow-up blood gases to be obtained in 30 minutes. Chest x-ray was noted and there is multifocal airspace disease Remains on bronchodilators and systemic steroids Recheck pro-calcitonin level Recheck sputum Gram stain and culture He is also known to have COVID 19 Continue Seroquel 50 mg by mouth 3 times a day Continue Dilaudid Ativan 1 mg IV 3 times a day scheduled Continue bronchodilators Continue steroids Enteral feeding for nutritional support Discharge the patient Norvasc 10 mg by mouth daily and clonidine 0.5 mg 3 times a day, and patient is off level Cleviprex Continue enteral feeding for nutritional support difficult to wean based on his advanced COPD we'll continue to follow make further recommendations based on his progress. This evaluation was done and more than 30 minutes. This is a critically care evaluation. Long-term prognosis poor baseline above-mentioned comorbidities. Time with Patient: Greater than 30
[2022-04-13] MEDS: LORazepam 2 MG/ML INJ IV SCH ×3 (09:48→21:58)
[2022-04-13] MEDS: HEPARIN SODIUM,PORCINE/PF 5,000 UNIT/0.5 ML SYRINGE SQ SCH ×2 (09:52→21:57)
[2022-04-13] MEDS: amLODIPine 10 MG TAB PO SCH (09:52)
[2022-04-13] MEDS: PANTOPRAZOLE 40 MG/10 ML VIAL IVP SCH (09:52)
[2022-04-13] MEDS: GABAPENTIN 300 MG CAP PO SCH ×3 (09:53→22:02)
[2022-04-13] MEDS: ASPIRIN 81 MG PO SCH (09:53)
[2022-04-13] MEDS: CHLORHEXIDINE GLUCONATE 15 ML CUP MUCOUS MEM SCH ×2 (09:53→21:57)
[2022-04-13] MEDS: CHOLECALCIFEROL 25 MCG (1000 IU) TABLET PO SCH (09:53)
[2022-04-13] MEDS: QUEtiapine 50 MG TAB PO SCH ×3 (09:54→22:02)
[2022-04-13] MEDS: cloNIDine HCL 0.2 MG TAB PO SCH ×3 (09:54→22:02)
[2022-04-13 10:58] LABS: ABG Base Excess 20.8 mmol/L; ABG Hematocrit 25 % (34.0-46.0); ABG Oxygen Saturation 98.5 % (94-97); ABG PH 7.22 (7.35-7.45); ABG PO2 104 mmHg (83-108); ABG TCO2 52 mmol/L (19-24); Allen Test Performed? Yes
[2022-04-13 10:59] LABS: ABG HCO3 49 mmol/L (21-25); ABG PCO2 118 mmHg (35-45)
[2022-04-13 11:47] LABS: Glucose,Whole Blood 170 mg/dL (70-110)
--- NOTE | 2022-04-13 12:32 | P.PN ---
Subjective Progress Note Date: 04/13/22 CHIEF COMPLAINT: Respiratory failure HISTORY OF PRESENT ILLNESS: Patient remains in the ICU. He is status post tracheostomy and PEG tube placement on 04/06/22. Patient continues to have positional cough like. He's holding his tidal volumes. He is tolerating his tube feeds which are at goal at 63 mL per hour. He is now Covid positive. Afebrile. WBC 13.7 Hgb 8.6 PHYSICAL EXAM: VITAL SIGNS: Reviewed. GENERAL: Well-developed in no acute distress. HEENT: Tracheostomy site clean and dry and intact. ABDOMEN: Soft. Nondistended. Nontender. PEG tube site clean dry and intact NEUROLOGIC: intubated ASSESSMENT: 1. Severe protein calorie malnutrition 2. Acute respiratory failure requiring mechanical ventilation secondary to COPD, aspiration pneumonia and lung cancer 3. History of previous tracheostomy with scar tissue at the tracheostomy site likely contributing to patient's cuff leak PLAN: -Continue tube feeds -Continue ICU management and supportive care Physician Riding Double note has been reviewed by physician. Signing provider agrees with the documented findings, assessment, and plan of care. Objective - Vital Signs Vital signs: Vital Signs Temp 0.5 F L 04/13/22 09:00 Pulse 92 04/13/22 11:00 Resp 24 04/13/22 11:00 BP 116/66 04/12/22 10:00 Pulse Ox 96 04/13/22 11:00 FiO2 70 04/13/22 11:10 Intake & Output 04/12/22 04/13/22 04/13/22 18:59 06:59 18:59 Intake Total 984.149 276 159 Output Total 840 1000 350 Balance 144.149 -724 -191 Weight 89 kg 86.5 kg Intake: IV 253 276 69 Lactated ringers 220 240 60 pressure bag 33 36 9 Intake, IV Titration 137.149 0 Amount Clevidipine Butyrate 25 137.149 0 mg In Empty Bag 1 bag @ 1 MG/HR 2 mls/hr IV .Q24H [facility] Rx#:[id number] Tube Feeding 594 90 Output: Urine 840 1000 350 Other: Voiding Method Indwelling Catheter Indwelling Catheter ABP, PAP, CO, CI - Last Documented Arterial Blood Pressure 120/40 - Labs CBC & Chem 7: 04/13/22 04:25 04/13/22 10:18 Labs: Abnormal Lab Results - Last 24 Hours (Table) 04/12/22 04/13/22 04/13/22 Range/Units 17:27 00:52 04:25 WBC 13.7 H (3.8-10.6) k/uL RBC 2.86 L (4.30-5.90) m/uL Hgb 8.6 L (13.0-17.5) gm/dL Hct 30.6 L (39.0-53.0) % MCV 107.0 H D (80.0-100.0) fL MCHC 28.1 L (31.0-37.0) g/dL RDW 20.1 H (11.5-15.5) % Macrocytosis Marked A ABG pH (7.35-7.45) ABG pCO2 (35-45) mmHg ABG pO2 (83-108) mmHg ABG HCO3 (21-25) mmol/L ABG Total CO2 (19-24) mmol/L ABG O2 Saturation (94-97) % ABG Hematocrit (34.0-46.0) % Hemoglobin (13.0-17.5) gm/dL Sodium (137-145) mmol/L Potassium (3.5-5.1) mmol/L Chloride (98-107) mmol/L Carbon Dioxide (22-30) mmol/L BUN (9-20) mg/dL Glucose (74-99) mg/dL POC Glucose (mg/dL) 146 H 225 H (70-110) mg/dL Coronavirus (PCR) (Not Detectd) 04/13/22 04/13/22 04/13/22 Range/Units 04:25 05:03 06:13 WBC (3.8-10.6) k/uL RBC (4.30-5.90) m/uL Hgb (13.0-17.5) gm/dL Hct (39.0-53.0) % MCV (80.0-100.0) fL MCHC (31.0-37.0) g/dL RDW (11.5-15.5) % Macrocytosis ABG pH 7.08 L* (7.35-7.45) ABG pCO2 >120 H* (35-45) mmHg ABG pO2 73 L (83-108) mmHg ABG HCO3 (21-25) mmol/L ABG Total CO2 (19-24) mmol/L ABG O2 Saturation 93.5 L (94-97) % ABG Hematocrit 27 L (34.0-46.0) % Hemoglobin 8.8 L (13.0-17.5) gm/dL Sodium 146 H (137-145) mmol/L Potassium 6.0 H (3.5-5.1) mmol/L Chloride 95 L (98-107) mmol/L Carbon Dioxide 47 H* (22-30) mmol/L BUN 58 H (9-20) mg/dL Glucose 206 H (74-99) mg/dL POC Glucose (mg/dL) 197 H (70-110) mg/dL Coronavirus (PCR) (Not Detectd) 04/13/22 04/13/22 04/13/22 Range/Units 10:18 10:49 11:42 WBC (3.8-10.6) k/uL RBC (4.30-5.90) m/uL Hgb (13.0-17.5) gm/dL Hct (39.0-53.0) % MCV (80.0-100.0) fL MCHC (31.0-37.0) g/dL RDW (11.5-15.5) % Macrocytosis ABG pH 7.22 L (7.35-7.45) ABG pCO2 118 H* (35-45) mmHg ABG pO2 (83-108) mmHg ABG HCO3 49 H* (21-25) mmol/L ABG Total CO2 52 H (19-24) mmol/L ABG O2 Saturation 98.5 H (94-97) % ABG Hematocrit 25 L (34.0-46.0) % Hemoglobin 8.2 L (13.0-17.5) gm/dL Sodium (137-145) mmol/L Potassium 5.8 H (3.5-5.1) mmol/L Chloride (98-107) mmol/L Carbon Dioxide (22-30) mmol/L BUN (9-20) mg/dL Glucose (74-99) mg/dL POC Glucose (mg/dL) (70-110) mg/dL Coronavirus (PCR) Detected A (Not Detectd) 04/13/22 Range/Units 11:45 WBC (3.8-10.6) k/uL RBC (4.30-5.90) m/uL Hgb (13.0-17.5) gm/dL Hct (39.0-53.0) % MCV (80.0-100.0) fL MCHC (31.0-37.0) g/dL RDW (11.5-15.5) % Macrocytosis ABG pH (7.35-7.45) ABG pCO2 (35-45) mmHg ABG pO2 (83-108) mmHg ABG HCO3 (21-25) mmol/L ABG Total CO2 (19-24) mmol/L ABG O2 Saturation (94-97) % ABG Hematocrit (34.0-46.0) % Hemoglobin (13.0-17.5) gm/dL Sodium (137-145) mmol/L Potassium (3.5-5.1) mmol/L Chloride (98-107) mmol/L Carbon Dioxide (22-30) mmol/L BUN (9-20) mg/dL Glucose (74-99) mg/dL POC Glucose (mg/dL) 170 H (70-110) mg/dL Coronavirus (PCR) (Not Detectd) Microbiology - Last 24 Hours (Table) 04/10/22 09:19 Catheter Tip Culture - Final Catheter Tip
[2022-04-13 13:31] LABS: Glucose,Whole Blood 186 mg/dL (70-110)
[2022-04-13 17:17] LABS: Glucose,Whole Blood 150 mg/dL (70-110)
[2022-04-13] MEDS: LACTATED RINGERS 1,000 ML IV SCH (19:50)
[2022-04-13] MEDS: ATORVASTATIN 10 MG TAB PO SCH (21:57)
[2022-04-13] MEDS: LATANOPROST 0.005% OPHTH DROPS 2.5 ML BTL BOTH EYES SCH (21:58)
[2022-04-14 01:20] LABS: Glucose,Whole Blood 130 mg/dL (70-110)
[2022-04-14] MEDS: HYDROmorphone 1 MG/ML 1 ML SYRINGE IVP SCH ×7 (02:05→12:49)
[2022-04-14] MEDS: INSULIN ASPART (NovoLOG) 100 UNIT/ML VIAL SQ SCH ×10 (02:05→23:50)
[2022-04-14] MEDS: methylPREDNISolone SOD SUCCI 125 MG/2 ML VIAL IV SCH ×5 (02:15→23:47)
[2022-04-14] MEDS: ALBUTEROL HFA INHALER INHALATION SCH ×5 (04:15→19:12)
[2022-04-14 05:40] LABS: African American GFR (CKD) >90 (>60 ml/min/1.73 sqM); Blood Urea Nitrogen 63 mg/dL (9-20); Calcium 9.9 mg/dL (8.4-10.2); Chloride 95 mmol/L (98-107); Glucose 163 mg/dL (74-99); Non-African American GFR(CKD) >90 (>60 ml/min/1.73 sqM); Potassium 5.9 mmol/L (3.5-5.1); Sodium 148 mmol/L (137-145)
[2022-04-14 05:46] LABS: Anion Gap 5 mmol/L
[2022-04-14 05:50] LABS: Anisocytosis Slight; Basophils % (A) 0 %; Eosinophils % (A) 0 %; HCT 30.8 % (39.0-53.0); HGB 8.8 gm/dL (13.0-17.5); Hypochromasia Marked; Lymphocytes # (A) 0.3 k/uL (1.0-4.8); Lymphocytes % (A) 3 %; MCH 30.7 pg (25.0-35.0); MCHC 28.4 g/dL (31.0-37.0); MCV 108.1 fL (80.0-100.0); Monocytes # (A) 0.7 k/uL (0-1.0); Monocytes % (A) 6 %; Neutrophils # (A) 9.6 k/uL (1.3-7.7); Neutrophils % (A) 90 %; Platelet Count 430 k/uL (150-450); RBC 2.85 m/uL (4.30-5.90); RDW 19.5 % (11.5-15.5); WBC 10.7 k/uL (3.8-10.6)
[2022-04-14 05:51] LABS: Carbon Dioxide 48 mmol/L (22-30)
[2022-04-14 05:52] LABS: Macrocytosis Marked
[2022-04-14 05:56] LABS: Glucose,Whole Blood 192 mg/dL (70-110)
[2022-04-14 05:58] LABS: ABG Base Excess 23.8 mmol/L; ABG Hematocrit 26 % (34.0-46.0); ABG Oxygen Saturation 98.6 % (94-97); ABG PH 7.25 (7.35-7.45); ABG PO2 109 mmHg (83-108); ABG TCO2 55 mmol/L (19-24)
[2022-04-14 06:01] LABS: ABG HCO3 51 mmol/L (21-25); ABG PCO2 115 mmHg (35-45); Allen Test Performed? No
[2022-04-14] MEDS ORDERED: SODIUM BICARB 8.4% 50 ML SYR (1 MEQ/ML) IV STA ×2 (06:07→06:32)
--- NOTE | 2022-04-14 08:22 | XR ---
EXAMINATION TYPE: XR chest 1V portable DATE OF EXAM: 04/14/2022 COMPARISON: 04/13/2022 HISTORY: Shortness of breath TECHNIQUE: Single frontal view of the chest is obtained. FINDINGS: Tracheostomy tube noted there is a left-sided PICC line in position with atherosclerotic c hange aorta. Diffuse emphysematous changes with patchy bilateral infiltrates stable no sizable pleura l effusion. No pneumothorax or arthropathy of the shoulders. Left hilar mass again seen. IMPRESSION: 1. COPD with stable patchy bilateral infiltrates 2. Left hilar mass.
[2022-04-14] MEDS: HEPARIN SODIUM,PORCINE/PF 5,000 UNIT/0.5 ML SYRINGE SQ SCH ×2 (08:39→21:16)
[2022-04-14] MEDS: CHOLECALCIFEROL 25 MCG (1000 IU) TABLET PO SCH (08:40)
[2022-04-14] MEDS: PANTOPRAZOLE 40 MG/10 ML VIAL IVP SCH (08:40)
[2022-04-14] MEDS: ASPIRIN 81 MG PO SCH (08:40)
[2022-04-14] MEDS: GABAPENTIN 300 MG CAP PO SCH ×3 (08:40→21:17)
[2022-04-14] MEDS: amLODIPine 10 MG TAB PO SCH (08:40)
--- NOTE | 2022-04-14 08:40 | P.PN ---
Subjective Principal diagnosis: Respiratory failure This is 71 white male with known history of COPD who is not intubated but slowly weaning. The patient is on FiO2 70% Still requiring pressors although slowly decreasing Tracheostomy is present. Left hilar mass is noted on x-ray. The patient is spacing. Prognosis is guarded. Multiple consultants. After long discussion with the family, they wish to continue at full complete care. Objective - Vital Signs Vital signs: Vital Signs Temp 97.9 F 04/14/22 04:00 Pulse 83 04/14/22 07:00 Resp 21 04/14/22 07:00 BP 116/66 04/13/22 16:00 Pulse Ox 98 04/14/22 07:00 FiO2 70 04/14/22 07:04 Intake & Output 04/13/22 04/14/22 04/14/22 18:59 06:59 18:59 Intake Total 613 779 Output Total 1120 1105 Balance -507 -326 Weight 82 kg Intake: IV 253 299 Lactated ringers 220 260 pressure bag 33 39 Tube Feeding 300 390 Other 60 90 Output: Urine 1120 1105 Other: Voiding Method Indwelling Catheter Indwelling Catheter ABP, PAP, CO, CI - Last Documented Arterial Blood Pressure 126/126 - Constitutional General appearance: Present: mild distress - EENT Eyes: Absent: abnormal pupil - Respiratory Respiratory: bilateral: rhonchi - Cardiovascular Rhythm: regular Heart sounds: normal: S1, S2 Abnormal Heart Sounds: Absent: S3 Gallop - Gastrointestinal General gastrointestinal: Present: soft. Absent: tenderness - Psychiatric Psychiatric: Absent: A&O x's 3 - Labs CBC & Chem 7: 04/14/22 04:10 04/14/22 04:10 Labs: Abnormal Lab Results - Last 24 Hours (Table) 04/13/22 04/13/22 04/13/22 Range/Units 04:25 10:18 10:49 WBC (3.8-10.6) k/uL RBC (4.30-5.90) m/uL Hgb (13.0-17.5) gm/dL Hct (39.0-53.0) % MCV (80.0-100.0) fL MCHC (31.0-37.0) g/dL RDW (11.5-15.5) % Neutrophils # (1.3-7.7) k/uL Lymphocytes # (1.0-4.8) k/uL Macrocytosis ABG pH 7.22 L (7.35-7.45) ABG pCO2 118 H* (35-45) mmHg ABG pO2 (83-108) mmHg ABG HCO3 49 H* (21-25) mmol/L ABG Total CO2 52 H (19-24) mmol/L ABG O2 Saturation 98.5 H (94-97) % ABG Hematocrit 25 L (34.0-46.0) % Hemoglobin 8.2 L (13.0-17.5) gm/dL Sodium (137-145) mmol/L Potassium 5.8 H (3.5-5.1) mmol/L Chloride (98-107) mmol/L Carbon Dioxide (22-30) mmol/L BUN (9-20) mg/dL Glucose (74-99) mg/dL POC Glucose (mg/dL) (70-110) mg/dL Procalcitonin 0.47 H (0.02-0.09) ng/mL Coronavirus (PCR) (Not Detectd) 04/13/22 04/13/22 04/13/22 Range/Units 11:42 11:45 13:29 WBC (3.8-10.6) k/uL RBC (4.30-5.90) m/uL Hgb (13.0-17.5) gm/dL Hct (39.0-53.0) % MCV (80.0-100.0) fL MCHC (31.0-37.0) g/dL RDW (11.5-15.5) % Neutrophils # (1.3-7.7) k/uL Lymphocytes # (1.0-4.8) k/uL Macrocytosis ABG pH (7.35-7.45) ABG pCO2 (35-45) mmHg ABG pO2 (83-108) mmHg ABG HCO3 (21-25) mmol/L ABG Total CO2 (19-24) mmol/L ABG O2 Saturation (94-97) % ABG Hematocrit (34.0-46.0) % Hemoglobin (13.0-17.5) gm/dL Sodium (137-145) mmol/L Potassium (3.5-5.1) mmol/L Chloride (98-107) mmol/L Carbon Dioxide (22-30) mmol/L BUN (9-20) mg/dL Glucose (74-99) mg/dL POC Glucose (mg/dL) 170 H 186 H (70-110) mg/dL Procalcitonin (0.02-0.09) ng/mL Coronavirus (PCR) Detected A (Not Detectd) 04/13/22 04/14/22 04/14/22 Range/Units 17:16 00:12 04:10 WBC 10.7 H (3.8-10.6) k/uL RBC 2.85 L (4.30-5.90) m/uL Hgb 8.8 L (13.0-17.5) gm/dL Hct 30.8 L (39.0-53.0) % MCV 108.1 H (80.0-100.0) fL MCHC 28.4 L (31.0-37.0) g/dL RDW 19.5 H (11.5-15.5) % Neutrophils # 9.6 H (1.3-7.7) k/uL Lymphocytes # 0.3 L (1.0-4.8) k/uL Macrocytosis Marked A ABG pH (7.35-7.45) ABG pCO2 (35-45) mmHg ABG pO2 (83-108) mmHg ABG HCO3 (21-25) mmol/L ABG Total CO2 (19-24) mmol/L ABG O2 Saturation (94-97) % ABG Hematocrit (34.0-46.0) % Hemoglobin (13.0-17.5) gm/dL Sodium (137-145) mmol/L Potassium (3.5-5.1) mmol/L Chloride (98-107) mmol/L Carbon Dioxide (22-30) mmol/L BUN (9-20) mg/dL Glucose (74-99) mg/dL POC Glucose (mg/dL) 150 H 130 H (70-110) mg/dL Procalcitonin (0.02-0.09) ng/mL Coronavirus (PCR) (Not Detectd) 04/14/22 04/14/22 04/14/22 Range/Units 04:10 05:48 05:54 WBC (3.8-10.6) k/uL RBC (4.30-5.90) m/uL Hgb (13.0-17.5) gm/dL Hct (39.0-53.0) % MCV (80.0-100.0) fL MCHC (31.0-37.0) g/dL RDW (11.5-15.5) % Neutrophils # (1.3-7.7) k/uL Lymphocytes # (1.0-4.8) k/uL Macrocytosis ABG pH 7.25 L (7.35-7.45) ABG pCO2 115 H* (35-45) mmHg ABG pO2 109 H (83-108) mmHg ABG HCO3 51 H* (21-25) mmol/L ABG Total CO2 55 H (19-24) mmol/L ABG O2 Saturation 98.6 H (94-97) % ABG Hematocrit 26 L (34.0-46.0) % Hemoglobin 8.5 L (13.0-17.5) gm/dL Sodium 148 H (137-145) mmol/L Potassium 5.9 H (3.5-5.1) mmol/L Chloride 95 L (98-107) mmol/L Carbon Dioxide 48 H* (22-30) mmol/L BUN 63 H (9-20) mg/dL Glucose 163 H (74-99) mg/dL POC Glucose (mg/dL) 192 H (70-110) mg/dL Procalcitonin (0.02-0.09) ng/mL Coronavirus (PCR) (Not Detectd) Microbiology - Last 24 Hours (Table) 04/13/22 10:30 Sputum Culture - Preliminary Sputum Assessment and Plan (1) COPD (chronic obstructive pulmonary disease) Current Visit: Yes Status: Acute Code(s): J44.9 - CHRONIC OBSTRUCTIVE PULMONARY DISEASE, UNSPECIFIED SNOMED Code(s): 12550903 (2) Acute exacerbation of chronic obstructive pulmonary disease Current Visit: No Status: Acute Code(s): J44.1 - CHRONIC OBSTRUCTIVE PULMONARY DISEASE W (ACUTE) EXACERBATION SNOMED Code(s): 859758358 (3) Acute respiratory failure Current Visit: No Status: Acute Code(s): J96.00 - ACUTE RESPIRATORY FAILURE, UNSP W HYPOXIA OR HYPERCAPNIA SNOMED Code(s): 37226673 (4) Pneumonia Current Visit: No Status: Acute Code(s): J18.9 - PNEUMONIA, UNSPECIFIED ORGANISM SNOMED Code(s): 520180689 (5) Hilar mass Current Visit: Yes Status: Acute Code(s): R91.8 - OTHER NONSPECIFIC ABNORMAL FINDING OF LUNG FIELD SNOMED Code(s): 511941398 Plan: Worsening hypoxia requiring increased O2 over the weekend Worsening prognosis. We'll continue to follow with multiple consultants. Continue current regimen of treatment.
[2022-04-14] MEDS: LORazepam 2 MG/ML INJ IV SCH (08:41)
[2022-04-14] MEDS: cloNIDine HCL 0.2 MG TAB PO SCH ×3 (08:44→21:17)
[2022-04-14] MEDS: QUEtiapine 50 MG TAB PO SCH ×3 (08:44→21:17)
[2022-04-14] MEDS: SYMBICORT 160-4.5 MCG INHALER INHALATION SCH ×2 (08:51→19:12)
[2022-04-14] MEDS ORDERED: LORazepam 2 MG/ML INJ IV PRN (08:59)
[2022-04-14] MEDS: CHLORHEXIDINE GLUCONATE 15 ML CUP MUCOUS MEM SCH ×2 (09:26→21:18)
[2022-04-14 10:12] LABS: ABG Base Excess 28.9 mmol/L; ABG Hematocrit 26 % (34.0-46.0); ABG Oxygen Saturation 97.3 % (94-97); ABG PH 7.34 (7.35-7.45); ABG PO2 78 mmHg (83-108); ABG TCO2 58 mmol/L (19-24)
[2022-04-14 10:14] LABS: ABG HCO3 55 mmol/L (21-25); ABG PCO2 101 mmHg (35-45); Allen Test Performed? no
--- NOTE | 2022-04-14 11:21 | P.PN ---
Subjective Progress Note Date: 04/14/22 On today's evaluation of a 04/12, the patient is being seen for a follow- up. This patient has advanced COPD with a baseline FEV1 of 34% of predicted and currently is on a mechanical ventilator. He was intubated on 02/28/2022 and he was given a tracheostomy tube and a PEG tube on 03/06/2022. The patient has a Bivona tracheostomy tube #7. The patient is currently off sedation. He is receiving Dilaudid 1 mg every 2-3 hours when necessary basis in addition to Seroquel 50 mg by mouth 3 times a day. He has been taken off propofol for now. He is arousable and follows some simple commands. He is still having labored breathing. This morning, he was tachypneic and he was at times double stacking his breath. He was on a VC plus mode of mechanical ventilation at the rate of 20 with a tidal volume of 450 with an FiO2 of 65% with a PEEP of 5. The peak airway pressure is elevated at 42. The static pressure is 24. The patient remains bronchospastic and wheezy. Respiratory secretions are still active and previous cultures have shown a combination of Serratia and Haemophilus influenza and this is cultures based on the one done on 03/24/2022. The blood gases from today shows a pH of 7.31 with a pCO2 of 88 and pO2 of 71. The patient is afebrile. The white cell count is at 4.4 with a hemoglobin of 8 and a platelet count of 391. Sodium is at 142 with a potassium level of 5.3 chloride is 96 bicarb is 41 with a mean of 46 and a creatinine of 0.9. The fluid balance is positive for on 60 mL over the past 24 hours. The patient is receiving vitals H P at the rate of 63 mL an hour. No other significant events overnight. His blood pressure remains elevated and the patient remains on Cleviprex running at 20 mg an hour for blood pressure control. 04/13/2022, patient is being seen for a follow-up. The patient remains on a mechanical ventilator. He is quite tachypneic and the patient is asynchronous the mechanical ventilator and this morning is having excess amount of leak on the tracheostomy tube. Based on that, I personally tube another centimeter and with repositioning, the leaks improved and the patient was switched to a pressure control mode of mechanical ventilation. Earlier to that, the patient was an assist-control mode of mechanical ventilation, volume cycle and the patient was on a tidal volume of 300 with a rate of seen and FiO2 of 70% with a fecal 5. Morning blood gases showed a pH of 7.08 with a pCO2 of 120 and pO2 of 73. Based on that, the ventilator setting was changed to a pressure control mode mechanical ventilation. The chest x-ray showing diffuse bilateral pulmonary infiltrates with worsening in the left perihilar pulmonary infiltrate in the left lower lobe pulmonary infiltrate and the patient has multifocal airspace disease. The left hilar mass was again demonstrated. There is no evidence of any pneumothorax. Tracheostomy tube is in a good location the patient had background COPD. Hemodynamically, the patient's blood pressure is under better control and the patient is currently off Cleviprex. The patient is currently on a combination of Norvasc and clonidine which is controlled his blood pressure more effectively. He is receiving enteral feeding for nutritional support and his on vital 83 at the rate of 30 mL an hour. In terms of sedation, the patient is receiving propofol. He is on a combination of Seroquel, Dilaudid and Ativan for now all of them are being given [id number]. He withdraws only to deep painful stimulation. Does not follow any commands.. The has been on bronchodilators and is also on IV Solu Medrol dose of 60 mg every 6 hours. Extensively bronchospastic and weak. The white cell count of 13.7 and hemoglobin at 8.6 and a platelet count of 423. Sodium is 146 with a potassium level of 6 and elevation of the potassium level is probably related to the respiratory acidosis. Serum bicarbonate 47.. With a BUN of 58 and a creatinine of 0.7. 04/14/2022, patient is being seen for a follow-up. This morning, the patient is adequately sedated. He grimaces to painful stimulation. Receiving a combination of Dilaudid and Ativan. He remains on a pressure control mode of mechanical ventilation. INR is still having leaks around the tracheostomy tube. More air was placed in the tracheostomy tube balloon and this eliminated air leak. He is currently on a pressure control mode and he is at a rate of 22, pressure control of 25 cm of water with a FiO2 of 70% and a PEEP of 5. Blood gases from today shows a pH of 7.25 with a pCO2 of 115 and a few to 109. Note that after eliminating the air leak, repeat blood gases was done and the patient was found to have a pH of 7.34 with a pCO2 of 11 and pO2 of 78. The patient is still bronchospastic and wheezy at this point in time. From today repeat chest x-ray showed COPD and patchy bilateral pulmonary infiltrates with a left hilar. The patient is ventilator dependent. Atelectatic discussion with the family yesterday and wanted to proceed with ongoing treatment with understanding that the patient's aunts of coming off the mechanical ventilator extremely low on 4. Hemodynamically stable and the patient is still receiving enteral feeding for nutritional support. On his blood work, potassium level was at 5.9 and the patient was given 2 doses of sodium bicarb and repeat potassium level is to be obtained. Meanwhile, the white cell count of 10.7 with a hemoglobin of 8.8 and a platelet count of 430. The patient has sodium level of 48 with a potassium level of 5.9 and a serum bicarbonate was 48. Repeat potassium came down to 5.4. No other significant events. The patient continued to receive enteral feeding for nutritional support and the patient is receiving vital HP. No abdominal distention. No nausea or vomiting. No other significant events overnight. Objective - Vital Signs Vital signs: Vital Signs Temp 97.9 F 04/14/22 09:00 Pulse 89 04/14/22 11:00 Resp 22 04/14/22 11:00 BP 116/66 04/13/22 16:00 Pulse Ox 97 04/14/22 11:00 FiO2 60 04/14/22 11:00 Intake & Output 04/13/22 04/14/22 04/14/22 18:59 06:59 18:59 Intake Total 613 779 242 Output Total 1120 1105 400 Balance -507 -326 -158 Weight 82 kg Intake: IV 253 299 92 Lactated ringers 220 260 80 pressure bag 33 39 12 Tube Feeding 300 390 120 Other 60 90 30 Output: Urine 1120 1105 400 Other: Voiding Method Indwelling Catheter Indwelling Catheter ABP, PAP, CO, CI - Last Documented Arterial Blood Pressure 121/67 - Exam No acute distress, currently on propofol, with a midline tracheostomy tube. The patient is a Bivona tracheostomy tube in place. The patient stated the mechanical ventilator. Labored breathing at times double stacking. He has a barrel chest typical of COPD. He is currently off sedation. Head exam was generally normal. There was no scleral icterus or corneal arcus. Mucous membranes were moist. HEENT examination is grossly unremarkable. Tracheostomy site is dry clean and intact and the patient has a Bivona tracheostomy tube in place Neck supple. Full range of motion. No adenopathy thyromegaly or neck vein distention. Cardiovascular examination reveals regular rhythm rate. S1-S2 normal. No S3 or S4. No discernible murmur noted. Heart sounds are distant. Lungs reveal scattered bilateral rhonchi. Breath sounds equal bilaterally wheezes. No crackles. Abdomen soft bowel sounds are heard. No masses or tenderness. PEG tube noted. Examination of the extremities revealed easily palpable radial, femoral and pedal pulses. There was no cyanosis, clubbing or edema. Examination of the skin revealed no evidence of significant rashes, suspicious appearing nevi or other concerning lesions. Neurologic examination ; The patient follows some simple commands. He is able to withdraw the patient was some additional 4 extremities. Pupils are equal and reactive to light. - Labs CBC & Chem 7: 04/14/22 04:10 04/14/22 10:12 Labs: Abnormal Lab Results - Last 24 Hours (Table) 04/13/22 04/13/22 04/13/22 Range/Units 04:25 11:42 11:45 WBC (3.8-10.6) k/uL RBC (4.30-5.90) m/uL Hgb (13.0-17.5) gm/dL Hct (39.0-53.0) % MCV (80.0-100.0) fL MCHC (31.0-37.0) g/dL RDW (11.5-15.5) % Neutrophils # (1.3-7.7) k/uL Lymphocytes # (1.0-4.8) k/uL Macrocytosis ABG pH (7.35-7.45) ABG pCO2 (35-45) mmHg ABG pO2 (83-108) mmHg ABG HCO3 (21-25) mmol/L ABG Total CO2 (19-24) mmol/L ABG O2 Saturation (94-97) % ABG Hematocrit (34.0-46.0) % Hemoglobin (13.0-17.5) gm/dL Sodium (137-145) mmol/L Potassium (3.5-5.1) mmol/L Chloride (98-107) mmol/L Carbon Dioxide (22-30) mmol/L BUN (9-20) mg/dL Glucose (74-99) mg/dL POC Glucose (mg/dL) 170 H (70-110) mg/dL Procalcitonin 0.47 H (0.02-0.09) ng/mL Coronavirus (PCR) Detected A (Not Detectd) 04/13/22 04/13/22 04/14/22 Range/Units 13:29 17:16 00:12 WBC (3.8-10.6) k/uL RBC (4.30-5.90) m/uL Hgb (13.0-17.5) gm/dL Hct (39.0-53.0) % MCV (80.0-100.0) fL MCHC (31.0-37.0) g/dL RDW (11.5-15.5) % Neutrophils # (1.3-7.7) k/uL Lymphocytes # (1.0-4.8) k/uL Macrocytosis ABG pH (7.35-7.45) ABG pCO2 (35-45) mmHg ABG pO2 (83-108) mmHg ABG HCO3 (21-25) mmol/L ABG Total CO2 (19-24) mmol/L ABG O2 Saturation (94-97) % ABG Hematocrit (34.0-46.0) % Hemoglobin (13.0-17.5) gm/dL Sodium (137-145) mmol/L Potassium (3.5-5.1) mmol/L Chloride (98-107) mmol/L Carbon Dioxide (22-30) mmol/L BUN (9-20) mg/dL Glucose (74-99) mg/dL POC Glucose (mg/dL) 186 H 150 H 130 H (70-110) mg/dL Procalcitonin (0.02-0.09) ng/mL Coronavirus (PCR) (Not Detectd) 04/14/22 04/14/22 04/14/22 Range/Units 04:10 04:10 05:48 WBC 10.7 H (3.8-10.6) k/uL RBC 2.85 L (4.30-5.90) m/uL Hgb 8.8 L (13.0-17.5) gm/dL Hct 30.8 L (39.0-53.0) % MCV 108.1 H (80.0-100.0) fL MCHC 28.4 L (31.0-37.0) g/dL RDW 19.5 H (11.5-15.5) % Neutrophils # 9.6 H (1.3-7.7) k/uL Lymphocytes # 0.3 L (1.0-4.8) k/uL Macrocytosis Marked A ABG pH 7.25 L (7.35-7.45) ABG pCO2 115 H* (35-45) mmHg ABG pO2 109 H (83-108) mmHg ABG HCO3 51 H* (21-25) mmol/L ABG Total CO2 55 H (19-24) mmol/L ABG O2 Saturation 98.6 H (94-97) % ABG Hematocrit 26 L (34.0-46.0) % Hemoglobin 8.5 L (13.0-17.5) gm/dL Sodium 148 H (137-145) mmol/L Potassium 5.9 H (3.5-5.1) mmol/L Chloride 95 L (98-107) mmol/L Carbon Dioxide 48 H* (22-30) mmol/L BUN 63 H (9-20) mg/dL Glucose 163 H (74-99) mg/dL POC Glucose (mg/dL) (70-110) mg/dL Procalcitonin (0.02-0.09) ng/mL Coronavirus (PCR) (Not Detectd) 04/14/22 04/14/22 04/14/22 Range/Units 05:54 10:10 10:12 WBC (3.8-10.6) k/uL RBC (4.30-5.90) m/uL Hgb (13.0-17.5) gm/dL Hct (39.0-53.0) % MCV (80.0-100.0) fL MCHC (31.0-37.0) g/dL RDW (11.5-15.5) % Neutrophils # (1.3-7.7) k/uL Lymphocytes # (1.0-4.8) k/uL Macrocytosis ABG pH 7.34 L (7.35-7.45) ABG pCO2 101 H* (35-45) mmHg ABG pO2 78 L (83-108) mmHg ABG HCO3 55 H* (21-25) mmol/L ABG Total CO2 58 H (19-24) mmol/L ABG O2 Saturation 97.3 H (94-97) % ABG Hematocrit 26 L (34.0-46.0) % Hemoglobin 8.3 L (13.0-17.5) gm/dL Sodium (137-145) mmol/L Potassium 5.4 H (3.5-5.1) mmol/L Chloride (98-107) mmol/L Carbon Dioxide (22-30) mmol/L BUN (9-20) mg/dL Glucose (74-99) mg/dL POC Glucose (mg/dL) 192 H (70-110) mg/dL Procalcitonin (0.02-0.09) ng/mL Coronavirus (PCR) (Not Detectd) Microbiology - Last 24 Hours (Table) 04/13/22 10:30 Gram Stain - Preliminary Sputum Sputum Culture - Preliminary Assessment and Plan Plan: Acute on chronic hypoxemic and hypercapnic respiratory failure, status post intubation and mechanical ventilation on 03/31/2022, status post tracheostomy and PEG tube placement 04/06/2022, for failure to wean from mechanical ventilation. On today's evaluation, the patient remains bronchospastic and wheezy with elevated airway pressures. Blood gases showing an acute abdominal chronic hypoxic and hypercapnic respiratory failure. Chest x-ray findings are stable from yesterday the tracheostomy tube remains in a good location. There is evidence of multifocal airspace opacity with a left hilar mass consistent with lung cancer. The blood gases showing chronic hypercapnic respiratory failure and S2 acidosis, compensated on a time. Chest x-ray findings are stable and the patient is a left hilar mass consistent with underlying lung cancer. There is some bilateral pulmonary infiltrates which remain unchanged. No issues with oxygenation. The patient is currently on 70% FiO2 with a PEEP of 5. With increase the [employer] the tracheostomy mask, the patient's mental ventilation typically goes down the patient developed more respiratory acidosis. This was adjusted and repeated gases were obtained. Bilateral pneumonia and sepsis, secondary to Serratia and Haemophilus. The patient completed the course of antibiotics Non-small cell lung cancer with a left hilar mass, diagnosed in December 2021 and the patient was given systemic chemotherapy Recent positive test for coronavirus, with possible coronavirus associated pneumonia. Acute exacerbation of secondary to above currently intubated on mechanical ventilator Enteral feeding for nutritional support and the patient has a PEG tube in place Previous history of respiratory failure, requiring intubation, and subsequent tracheostomy. Generalized anxiety disorder. The patient is currently on Seroquel and the patient has apparently has been taking Xanax on outpatient basis Severe/stage III/stage IV COPD, with an FEV1 that's 34%. Degenerative joint disease. Acute kidney injury, recovered Acute hyperkalemia secondary to respiratory acidosis. Plan: Continue with pressure control mode of mechanical ventilation. FiO2 down to 60% I'm going to back off on the Dilaudid and Ativan for now Continue Seroquel Continue steroids Continue bronchodilators Continue Symbicort Monitor potassium level Bicarb was given BP is under better control Continue enteral feeding for nutritional support difficult to wean based on his advanced COPD Prognosis poor. I'll discussion with the family and they understand the situation. There is tender the patient and up requiring long-term ventilator support. They're willing to undertake all consistencies. The family wanted to hold on to a full CODE STATUS. we'll continue to follow make further recommendations based on his progress. This evaluation was done and more than 30 minutes. This is a critically care evaluation. Long-term prognosis poor baseline above-mentioned comorbidities. Time with Patient: Greater than 30
[2022-04-14] MEDS: HYDROmorphone 1 MG/ML 1 ML SYRINGE IVP PRN ×2 (12:19→18:45)
[2022-04-14 13:02] LABS: Glucose,Whole Blood 165 mg/dL (70-110)
[2022-04-14] MEDS: NOREPINEPHRINE 4 MG in SODIUM CHLORIDE 0.9% 250 ML IV SCH (15:05)
[2022-04-14] MEDS: LORazepam 1 MG/0.5 ML VIAL IV PRN (15:29)
[2022-04-14 18:36] LABS: Glucose,Whole Blood 165 mg/dL (70-110)
[2022-04-14] MEDS: LATANOPROST 0.005% OPHTH DROPS 2.5 ML BTL BOTH EYES SCH (21:17)
[2022-04-14] MEDS: ATORVASTATIN 10 MG TAB PO SCH (21:18)
[2022-04-14 23:35] LABS: Glucose,Whole Blood 160 mg/dL (70-110)
[2022-04-15] MEDS: ALBUTEROL HFA INHALER INHALATION SCH ×6 (00:12→19:43)
[2022-04-15] MEDS: HYDROmorphone 1 MG/ML 1 ML SYRINGE IVP PRN ×3 (01:33→07:50)
[2022-04-15] MEDS: LORazepam 1 MG/0.5 ML VIAL IV PRN (02:45)
[2022-04-15] MEDS: LACTATED RINGERS 1,000 ML IV SCH (03:02)
[2022-04-15] MEDS: NOREPINEPHRINE 4 MG in SODIUM CHLORIDE 0.9% 250 ML IV SCH (04:08)
[2022-04-15] MEDS: CLEVIDIPINE BUTYRATE 25 MG in EMPTY BAG 1 BAG IV SCH ×5 (05:15→20:08)
[2022-04-15 05:45] LABS: Glucose,Whole Blood 195 mg/dL (70-110)
[2022-04-15] MEDS: methylPREDNISolone SOD SUCCI 125 MG/2 ML VIAL IV SCH ×4 (05:52→23:35)
[2022-04-15] MEDS: INSULIN ASPART (NovoLOG) 100 UNIT/ML VIAL SQ SCH ×8 (05:52→23:36)
[2022-04-15 06:04] LABS: ABG Hematocrit 27 % (34.0-46.0); ABG Oxygen Saturation 97.7 % (94-97); ABG PH 7.42 (7.35-7.45); ABG PO2 85 mmHg (83-108); ABG TCO2 60 mmol/L (19-24)
[2022-04-15 06:09] LABS: ABG PCO2 88 mmHg (35-45)
[2022-04-15 06:10] LABS: ABG Base Excess 32.7 mmol/L; ABG HCO3 57 mmol/L (21-25); Allen Test Performed? no
[2022-04-15] MEDS: SYMBICORT 160-4.5 MCG INHALER INHALATION SCH ×2 (07:13→19:43)
[2022-04-15] MEDS: amLODIPine 10 MG TAB PO SCH (07:49)
[2022-04-15] MEDS: CHOLECALCIFEROL 25 MCG (1000 IU) TABLET PO SCH (07:49)
[2022-04-15] MEDS: QUEtiapine 50 MG TAB PO SCH ×3 (07:49→21:28)
[2022-04-15] MEDS: HEPARIN SODIUM,PORCINE/PF 5,000 UNIT/0.5 ML SYRINGE SQ SCH ×2 (07:49→21:27)
[2022-04-15] MEDS: CHLORHEXIDINE GLUCONATE 15 ML CUP MUCOUS MEM SCH ×2 (07:49→21:27)
[2022-04-15] MEDS: PANTOPRAZOLE 40 MG/10 ML VIAL IVP SCH (07:50)
[2022-04-15] MEDS: GABAPENTIN 300 MG CAP PO SCH ×3 (07:50→21:27)
[2022-04-15] MEDS: cloNIDine HCL 0.2 MG TAB PO SCH ×3 (07:51→21:29)
[2022-04-15] MEDS: ASPIRIN 81 MG PO SCH (07:51)
--- NOTE | 2022-04-15 08:36 | P.PN ---
Subjective Principal diagnosis: Respiratory failure This is 71 white male with known history of COPD who is not intubated but slowly weaning. The patient is on FiO2 70% Still requiring pressors although slowly decreasing Tracheostomy is present. Left hilar mass is noted on x-ray. The patient is spacing. Multiple consultants. After long discussion with the family, they wish to continue at full complete care. Long-term prognosis is poor Objective - Vital Signs Vital signs: Vital Signs Temp 98.7 F 04/15/22 08:00 Pulse 101 H 04/15/22 08:00 Resp 91 H 04/15/22 08:00 BP 116/66 04/15/22 08:00 Pulse Ox 95 04/15/22 08:00 FiO2 60 04/15/22 08:00 Intake & Output 04/14/22 04/15/22 04/15/22 18:59 06:59 18:59 Intake Total 673 753.051 91 Output Total 1225 1160 125 Balance -552 -406.949 -34 Weight 86.2 kg Intake: IV 253 276 23 Lactated ringers 220 240 20 pressure bag 33 36 3 Intake, IV Titration 27.051 68 Amount Clevidipine Butyrate 25 27.051 68 mg In Empty Bag 1 bag @ 1 MG/HR 2 mls/hr IV .Q24H [facility] Rx#:[id number] Tube Feeding 330 360 Other 90 90 Output: Urine 1225 1160 125 Other: Voiding Method Indwelling Catheter Indwelling Catheter Indwelling Catheter ABP, PAP, CO, CI - Last Documented Arterial Blood Pressure 163/54 - Constitutional General appearance: Present: average body habitus - EENT Eyes: Absent: abnormal pupil - Neck Neck: Absent: lymphadenopathy - Respiratory Respiratory: bilateral: rhonchi - Cardiovascular Rhythm: regular Heart sounds: normal: S1, S2 Abnormal Heart Sounds: Absent: S3 Gallop - Gastrointestinal General gastrointestinal: Present: soft - Labs CBC & Chem 7: 04/14/22 04:10 04/14/22 10:12 Labs: Abnormal Lab Results - Last 24 Hours (Table) 04/14/22 04/14/22 04/14/22 Range/Units 10:10 10:12 13:00 ABG pH 7.34 L (7.35-7.45) ABG pCO2 101 H* (35-45) mmHg ABG pO2 78 L (83-108) mmHg ABG HCO3 55 H* (21-25) mmol/L ABG Total CO2 58 H (19-24) mmol/L ABG O2 Saturation 97.3 H (94-97) % ABG Hematocrit 26 L (34.0-46.0) % Hemoglobin 8.3 L (13.0-17.5) gm/dL Potassium 5.4 H (3.5-5.1) mmol/L POC Glucose (mg/dL) 165 H (70-110) mg/dL 04/14/22 04/14/22 04/15/22 Range/Units 18:36 23:31 05:43 ABG pH (7.35-7.45) ABG pCO2 (35-45) mmHg ABG pO2 (83-108) mmHg ABG HCO3 (21-25) mmol/L ABG Total CO2 (19-24) mmol/L ABG O2 Saturation (94-97) % ABG Hematocrit (34.0-46.0) % Hemoglobin (13.0-17.5) gm/dL Potassium (3.5-5.1) mmol/L POC Glucose (mg/dL) 165 H 160 H 195 H (70-110) mg/dL 04/15/22 Range/Units 05:53 ABG pH (7.35-7.45) ABG pCO2 88 H* (35-45) mmHg ABG pO2 (83-108) mmHg ABG HCO3 57 H* (21-25) mmol/L ABG Total CO2 60 H (19-24) mmol/L ABG O2 Saturation 97.7 H (94-97) % ABG Hematocrit 27 L (34.0-46.0) % Hemoglobin 8.9 L (13.0-17.5) gm/dL Potassium (3.5-5.1) mmol/L POC Glucose (mg/dL) (70-110) mg/dL Microbiology - Last 24 Hours (Table) 04/13/22 10:30 Gram Stain - Preliminary Sputum Sputum Culture - Preliminary Gram Neg Bacilli Assessment and Plan (1) COPD (chronic obstructive pulmonary disease) Current Visit: Yes Status: Acute Code(s): J44.9 - CHRONIC OBSTRUCTIVE PULMONARY DISEASE, UNSPECIFIED SNOMED Code(s): 52517082 (2) Acute exacerbation of chronic obstructive pulmonary disease Current Visit: No Status: Acute Code(s): J44.1 - CHRONIC OBSTRUCTIVE PULMONARY DISEASE W (ACUTE) EXACERBATION SNOMED Code(s): 405208701 (3) Acute respiratory failure Current Visit: No Status: Acute Code(s): J96.00 - ACUTE RESPIRATORY FAILURE, UNSP W HYPOXIA OR HYPERCAPNIA SNOMED Code(s): 81229501 (4) Pneumonia Current Visit: No Status: Acute Code(s): J18.9 - PNEUMONIA, UNSPECIFIED ORGANISM SNOMED Code(s): 115391838 (5) Hilar mass Current Visit: Yes Status: Acute Code(s): R91.8 - OTHER NONSPECIFIC ABNORMAL FINDING OF LUNG FIELD SNOMED Code(s): 975004164 Plan: Worsening hypoxia requiring increased O2 over the weekend Worsening prognosis. We'll continue to follow with multiple consultants. Continue current regimen of treatment. ABG is improved from several days ago
[2022-04-15 09:05] LABS: Anisocytosis Slight; Basophils % (A) 0 %; Eosinophils % (A) 0 %; HCT 28.2 % (39.0-53.0); HGB 8.2 gm/dL (13.0-17.5); Hypochromasia Marked; Lymphocytes # (A) 0.2 k/uL (1.0-4.8); Lymphocytes % (A) 2 %; MCH 30.7 pg (25.0-35.0); MCHC 29.2 g/dL (31.0-37.0); MCV 105.2 fL (80.0-100.0); Macrocytosis Marked; Mean Platelet Volume 8.7; Monocytes # (A) 0.4 k/uL (0-1.0); Monocytes % (A) 4 %; Neutrophils # (A) 10.1 k/uL (1.3-7.7); Neutrophils % (A) 94 %; Platelet Count 443 k/uL (150-450); RBC 2.68 m/uL (4.30-5.90); RDW 19.9 % (11.5-15.5); WBC 10.7 k/uL (3.8-10.6)
--- NOTE | 2022-04-15 09:16 | XR ---
EXAMINATION TYPE: XR chest 1V DATE OF EXAM: 04/15/2022 COMPARISON: 04/14/2022 HISTORY: Shortness of breath TECHNIQUE: Single frontal view of the chest is obtained. FINDINGS: Tracheostomy tube noted there is a left-sided PICC line in position with atherosclerotic c hange aorta. Diffuse emphysematous changes with improving patchy bilateral infiltrates stable no siza ble pleural effusion. No pneumothorax or arthropathy of the shoulders. Left hilar mass again seen. IMPRESSION: COPD with left hilar mass. Improved aeration suggestive of resolving infiltrate.
[2022-04-15 09:55] LABS: ALT 27 U/L (4-49); AST 19 U/L (17-59); African American GFR (CKD) >90 (>60 ml/min/1.73 sqM); Albumin 2.3 g/dL (3.5-5.0); Alkaline Phosphatase 197 U/L (38-126); Blood Urea Nitrogen 65 mg/dL (9-20); Calcium 9.6 mg/dL (8.4-10.2); Chloride 95 mmol/L (98-107); Glucose 250 mg/dL (74-99); Non-African American GFR(CKD) >90 (>60 ml/min/1.73 sqM); Sodium 150 mmol/L (137-145); Total Bilirubin 0.3 mg/dL (0.2-1.3); Total Protein 4.9 g/dL (6.3-8.2)
[2022-04-15 10:01] LABS: Anion Gap 5 mmol/L
[2022-04-15 10:09] LABS: Carbon Dioxide 50 mmol/L (22-30)
--- NOTE | 2022-04-15 10:52 | CT ---
EXAMINATION TYPE: CT brain wo con DATE OF EXAM: 04/15/2022 COMPARISON: None HISTORY: Altered mental status CT DLP: 1188.4 mGycm Automated exposure control for dose reduction was used. FINDINGS: Artifact limits portions of the exam with particular limitation seen in the posterior fossa. Remainin g portion the brain demonstrates moderate generalized degenerative change with nonspecific low attenu ation white matter most typical remote ischemic change. Within the visualized portions of the non art ifactual brain parenchyma no obvious acute hemorrhage or mass effect. No midline shift. Indeterminate low attenuation in the right superior parietal and posterior left parietal lobes could be on the bas is of recent ischemia. Changes of mild chronic mastoiditis and sinusitis with nasal septal deviation noted. Orbits are symme tric. Craniocervical junction is in a very territorial and somewhat prominent. IMPRESSION: 1. M LIMITED BY ARTIFACT PARTICULARLY LIMITATION THE POSTERIOR FOSSA. GROSSLY NO ACUTE HEMORRHAGE OR MASS EFFECT. HOWEVER THERE IS INTERMEDIATE LOW-ATTENUATION IN THE SUPERIOR RIGHT PARIETAL AND LEFT PO STERIOR PARIETAL LOBE SUSPICIOUS FOR RECENT ISCHEMIA RECOMMEND FOLLOW-UP MRI. 2. DEGENERATIVE AND NONSPECIFIC WHITE MATTER CHANGE MOST TYPICAL OF REMOTE ISCHEMIA.
[2022-04-15 11:25] LABS: Glucose,Whole Blood 274 mg/dL (70-110)
--- NOTE | 2022-04-15 11:46 | P.PN ---
Subjective Progress Note Date: 04/15/22 On today's evaluation of a 04/12, the patient is being seen for a follow- up. This patient has advanced COPD with a baseline FEV1 of 34% of predicted and currently is on a mechanical ventilator. He was intubated on 02/28/2022 and he was given a tracheostomy tube and a PEG tube on 03/06/2022. The patient has a Bivona tracheostomy tube #7. The patient is currently off sedation. He is receiving Dilaudid 1 mg every 2-3 hours when necessary basis in addition to Seroquel 50 mg by mouth 3 times a day. He has been taken off propofol for now. He is arousable and follows some simple commands. He is still having labored breathing. This morning, he was tachypneic and he was at times double stacking his breath. He was on a VC plus mode of mechanical ventilation at the rate of 20 with a tidal volume of 450 with an FiO2 of 65% with a PEEP of 5. The peak airway pressure is elevated at 42. The static pressure is 24. The patient remains bronchospastic and wheezy. Respiratory secretions are still active and previous cultures have shown a combination of Serratia and Haemophilus influenza and this is cultures based on the one done on 03/24/2022. The blood gases from today shows a pH of 7.31 with a pCO2 of 88 and pO2 of 71. The patient is afebrile. The white cell count is at 4.4 with a hemoglobin of 8 and a platelet count of 391. Sodium is at 142 with a potassium level of 5.3 chloride is 96 bicarb is 41 with a mean of 46 and a creatinine of 0.9. The fluid balance is positive for on 60 mL over the past 24 hours. The patient is receiving vitals H P at the rate of 63 mL an hour. No other significant events overnight. His blood pressure remains elevated and the patient remains on Cleviprex running at 20 mg an hour for blood pressure control. 04/13/2022, patient is being seen for a follow-up. The patient remains on a mechanical ventilator. He is quite tachypneic and the patient is asynchronous the mechanical ventilator and this morning is having excess amount of leak on the tracheostomy tube. Based on that, I personally tube another centimeter and with repositioning, the leaks improved and the patient was switched to a pressure control mode of mechanical ventilation. Earlier to that, the patient was an assist-control mode of mechanical ventilation, volume cycle and the patient was on a tidal volume of 300 with a rate of seen and FiO2 of 70% with a fecal 5. Morning blood gases showed a pH of 7.08 with a pCO2 of 120 and pO2 of 73. Based on that, the ventilator setting was changed to a pressure control mode mechanical ventilation. The chest x-ray showing diffuse bilateral pulmonary infiltrates with worsening in the left perihilar pulmonary infiltrate in the left lower lobe pulmonary infiltrate and the patient has multifocal airspace disease. The left hilar mass was again demonstrated. There is no evidence of any pneumothorax. Tracheostomy tube is in a good location the patient had background COPD. Hemodynamically, the patient's blood pressure is under better control and the patient is currently off Cleviprex. The patient is currently on a combination of Norvasc and clonidine which is controlled his blood pressure more effectively. He is receiving enteral feeding for nutritional support and his on vital 83 at the rate of 30 mL an hour. In terms of sedation, the patient is receiving propofol. He is on a combination of Seroquel, Dilaudid and Ativan for now all of them are being given [id number]. He withdraws only to deep painful stimulation. Does not follow any commands.. The has been on bronchodilators and is also on IV Solu Medrol dose of 60 mg every 6 hours. Extensively bronchospastic and weak. The white cell count of 13.7 and hemoglobin at 8.6 and a platelet count of 423. Sodium is 146 with a potassium level of 6 and elevation of the potassium level is probably related to the respiratory acidosis. Serum bicarbonate 47.. With a BUN of 58 and a creatinine of 0.7. 04/14/2022, patient is being seen for a follow-up. This morning, the patient is adequately sedated. He grimaces to painful stimulation. Receiving a combination of Dilaudid and Ativan. He remains on a pressure control mode of mechanical ventilation. INR is still having leaks around the tracheostomy tube. More air was placed in the tracheostomy tube balloon and this eliminated air leak. He is currently on a pressure control mode and he is at a rate of 22, pressure control of 25 cm of water with a FiO2 of 70% and a PEEP of 5. Blood gases from today shows a pH of 7.25 with a pCO2 of 115 and a few to 109. Note that after eliminating the air leak, repeat blood gases was done and the patient was found to have a pH of 7.34 with a pCO2 of 11 and pO2 of 78. The patient is still bronchospastic and wheezy at this point in time. From today repeat chest x-ray showed COPD and patchy bilateral pulmonary infiltrates with a left hilar. The patient is ventilator dependent. Atelectatic discussion with the family yesterday and wanted to proceed with ongoing treatment with understanding that the patient's aunts of coming off the mechanical ventilator extremely low on 4. Hemodynamically stable and the patient is still receiving enteral feeding for nutritional support. On his blood work, potassium level was at 5.9 and the patient was given 2 doses of sodium bicarb and repeat potassium level is to be obtained. Meanwhile, the white cell count of 10.7 with a hemoglobin of 8.8 and a platelet count of 430. The patient has sodium level of 48 with a potassium level of 5.9 and a serum bicarbonate was 48. Repeat potassium came down to 5.4. No other significant events. The patient continued to receive enteral feeding for nutritional support and the patient is receiving vital HP. No abdominal distention. No nausea or vomiting. No other significant events overnight. 04/15/2022, the patient remains on a mechanical ventilator. Neurologically, the patient remains quite obtunded and is not following any commands. He grimaces to painful stimulation. He was being given a combination of Dilaudid and Ativan. He does not follow any commands. His breathing is labored even while on the mechanical ventilator on a pressure control mode. He tries to triggered event with chest wall movements and he is unable to do so. He is breathing effort remains quite weak and is probably along the lines of his advanced end- stage lung disease. Based on his underlying mentation which is still impaired, I made recommendations to stop all sedations and proceed with a CAT scan of the brain. He remains on a pressure control mode of mechanical ventilation at the rate of 22 with a pressure control of 25 and FiO2 of 70% and PEEP of 5 on the morning blood gases was favorable with a pH of 7.42 and a pO2 of 88 and pO2 of 85 and this was on FiO2 of 60%. His blood work electrolytes from today show a sodium level of 150 with a INR of 65 and a creatinine of 0.6. Potassium level is at 5 and a serum bicarbonate of 50. The white cell count 10.7 with hemoglobin 8.2 and the chest x-ray from today shows a left hilar mass, COPD, improved aeration suggestive of resolving infiltrates. No respiratory secretions. No leak from the tracheostomy tube. The patient continued to receive enteral feeding for nutritional support and he is able to tolerate a diet without any major difficulties. No regurgitation. No aspiration. No abdominal distention. No fever or chills. He remains on IV Solu-Medrol in addition to bronchodilators. He has been diagnosed having positive COVID 19 Objective - Vital Signs Vital signs: Vital Signs Temp 98.7 F 04/15/22 08:00 Pulse 101 H 04/15/22 08:00 Resp 91 H 04/15/22 08:00 BP 116/66 04/15/22 08:00 Pulse Ox 95 04/15/22 08:00 FiO2 50 04/15/22 10:51 Intake & Output 04/14/22 04/15/22 04/15/22 18:59 06:59 18:59 Intake Total 673 753.051 137 Output Total 1225 1160 200 Balance -552 -406.949 -63 Weight 86.2 kg 86.2 kg Intake: IV 253 276 69 Lactated ringers 220 240 60 pressure bag 33 36 9 Intake, IV Titration 27.051 68 Amount Clevidipine Butyrate 25 27.051 68 mg In Empty Bag 1 bag @ 1 MG/HR 2 mls/hr IV .Q24H [facility] Rx#:[id number] Tube Feeding 330 360 Other 90 90 Output: Urine 1225 1160 200 Other: Voiding Method Indwelling Catheter Indwelling Catheter Indwelling Catheter ABP, PAP, CO, CI - Last Documented Arterial Blood Pressure 163/54 - Exam No acute distress, currently on propofol, with a midline tracheostomy tube. The patient is a Bivona tracheostomy tube in place. The patient stated the mechanical ventilator. Labored breathing at times double stacking. He has a barrel chest typical of COPD. He is currently off sedation. The patient tries and sugars the mechanical ventilator. He has chest wall and abdominal wall breathing and he tries to breathe above the mechanical ventilator. He is unable to do so as the patient is quite weak to trigger the mechanical ventilator. Head exam was generally normal. There was no scleral icterus or corneal arcus. Mucous membranes were moist. HEENT examination is grossly unremarkable. Tracheostomy site is dry clean and intact and the patient has a Bivona tracheostomy tube in place Neck supple. Full range of motion. No adenopathy thyromegaly or neck vein distention. Cardiovascular examination reveals regular rhythm rate. S1-S2 normal. No S3 or S4. No discernible murmur noted. Heart sounds are distant. Lungs reveal scattered bilateral rhonchi. Breath sounds equal bilaterally wheezes. No crackles. Abdomen soft bowel sounds are heard. No masses or tenderness. PEG tube noted. Examination of the extremities revealed easily palpable radial, femoral and pe jose pulses. There was no cyanosis, clubbing or edema. Examination of the skin revealed no evidence of significant rashes, suspicious appearing nevi or other concerning lesions. Neurologic examination ; The patient is not following any simple commands today. He is quite obtunded and he grimaces to painful stimulation.. He is able to withdraw the patient was some additional 4 extremities. Pupils are equal and reactive to light. - Labs CBC & Chem 7: 04/15/22 08:50 04/15/22 08:50 Labs: Abnormal Lab Results - Last 24 Hours (Table) 04/14/22 04/14/22 04/14/22 Range/Units 13:00 18:36 23:31 WBC (3.8-10.6) k/uL RBC (4.30-5.90) m/uL Hgb (13.0-17.5) gm/dL Hct (39.0-53.0) % MCV (80.0-100.0) fL MCHC (31.0-37.0) g/dL RDW (11.5-15.5) % Neutrophils # (1.3-7.7) k/uL Lymphocytes # (1.0-4.8) k/uL Macrocytosis ABG pCO2 (35-45) mmHg ABG HCO3 (21-25) mmol/L ABG Total CO2 (19-24) mmol/L ABG O2 Saturation (94-97) % ABG Hematocrit (34.0-46.0) % Hemoglobin (13.0-17.5) gm/dL Sodium (137-145) mmol/L Chloride (98-107) mmol/L Carbon Dioxide (22-30) mmol/L BUN (9-20) mg/dL Creatinine (0.66-1.25) mg/dL Glucose (74-99) mg/dL POC Glucose (mg/dL) 165 H 165 H 160 H (70-110) mg/dL Alkaline Phosphatase (38-126) U/L Total Protein (6.3-8.2) g/dL Albumin (3.5-5.0) g/dL 04/15/22 04/15/22 04/15/22 Range/Units 05:43 05:53 08:50 WBC 10.7 H (3.8-10.6) k/uL RBC 2.68 L (4.30-5.90) m/uL Hgb 8.2 L (13.0-17.5) gm/dL Hct 28.2 L (39.0-53.0) % MCV 105.2 H (80.0-100.0) fL MCHC 29.2 L (31.0-37.0) g/dL RDW 19.9 H (11.5-15.5) % Neutrophils # 10.1 H (1.3-7.7) k/uL Lymphocytes # 0.2 L (1.0-4.8) k/uL Macrocytosis Marked A ABG pCO2 88 H* (35-45) mmHg ABG HCO3 57 H* (21-25) mmol/L ABG Total CO2 60 H (19-24) mmol/L ABG O2 Saturation 97.7 H (94-97) % ABG Hematocrit 27 L (34.0-46.0) % Hemoglobin 8.9 L (13.0-17.5) gm/dL Sodium (137-145) mmol/L Chloride (98-107) mmol/L Carbon Dioxide (22-30) mmol/L BUN (9-20) mg/dL Creatinine (0.66-1.25) mg/dL Glucose (74-99) mg/dL POC Glucose (mg/dL) 195 H (70-110) mg/dL Alkaline Phosphatase (38-126) U/L Total Protein (6.3-8.2) g/dL Albumin (3.5-5.0) g/dL 04/15/22 04/15/22 Range/Units 08:50 11:24 WBC (3.8-10.6) k/uL RBC (4.30-5.90) m/uL Hgb (13.0-17.5) gm/dL Hct (39.0-53.0) % MCV (80.0-100.0) fL MCHC (31.0-37.0) g/dL RDW (11.5-15.5) % Neutrophils # (1.3-7.7) k/uL Lymphocytes # (1.0-4.8) k/uL Macrocytosis ABG pCO2 (35-45) mmHg ABG HCO3 (21-25) mmol/L ABG Total CO2 (19-24) mmol/L ABG O2 Saturation (94-97) % ABG Hematocrit (34.0-46.0) % Hemoglobin (13.0-17.5) gm/dL Sodium 150 H (137-145) mmol/L Chloride 95 L (98-107) mmol/L Carbon Dioxide 50 H* (22-30) mmol/L BUN 65 H (9-20) mg/dL Creatinine 0.61 L (0.66-1.25) mg/dL Glucose 250 H (74-99) mg/dL POC Glucose (mg/dL) 274 H (70-110) mg/dL Alkaline Phosphatase 197 H (38-126) U/L Total Protein 4.9 L (6.3-8.2) g/dL Albumin 2.3 L (3.5-5.0) g/dL Microbiology - Last 24 Hours (Table) 04/13/22 10:30 Gram Stain - Preliminary Sputum Sputum Culture - Preliminary Gram Neg Bacilli Assessment and Plan Plan: Acute on chronic hypoxemic and hypercapnic respiratory failure, status post intubation and mechanical ventilation on 03/31/2022, status post tracheostomy a nd PEG tube placement 04/06/2022, for failure to wean from mechanical ventilation. On today's evaluation, the patient remains bronchospastic and wheezy with elevated airway pressures. Blood gases showing an acute abdominal chronic hypoxic and hypercapnic respiratory failure. Chest x-ray findings are stable from yesterday the tracheostomy tube remains in a good location. There is evidence of multifocal airspace opacity with a left hilar mass consistent with lung cancer. The patient remains on a pressure control mode, the blood gases show chronic hypercapnic respiratory failure and there is significant metabolic alkalosis on the blood work. The same time, the chest x-ray showing improved aeration in the left hilar mass. No weeks on the tracheostomy tube site. The patient is on pressure control. The patient is currently off antibiotics. He does have end-stage lung disease/COPD post tracheostomy tube insertion. Bilateral pneumonia and sepsis, secondary to Serratia and Haemophilus. The patient completed the course of antibiotics COVID 19 infection confirmed on 04/10/2022 and positive on 04/13/2022 Non-small cell lung cancer with a left hilar mass, diagnosed in December 2021 and the patient was given systemic chemotherapy Acute exacerbation of secondary to above currently intubated on mechanical ventilator Enteral feeding for nutritional support and the patient has a PEG tube in place Previous history of respiratory failure, requiring intubation, and subsequent tracheostomy. Generalized anxiety disorder. The patient is currently on Seroquel and the patient has apparently has been taking Xanax on outpatient basis Severe/stage III/stage IV COPD, with an FEV1 that's 34%. Degenerative joint disease. Acute kidney injury, recovered Acute hyperkalemia secondary to respiratory acidosis, recovered Hyperchloremic hypernatremia Plan: Continue with pressure control mode of mechanical ventilation. FiO2 down to 60% Discontinue the Dilaudid and Ativan for now and assess the patient's mental status Keep the patient on pressure control mode of mechanical ventilation Obtain a CAT scan of the brain Start the patient on D5 water at the rate of 100 mL an hour Start the patient on Diamox 250 mg IV every 12 hours Daily blood gases Continue enteral feeding for nutritional support difficult to wean based on his advanced COPD, suspect end-stage lung disease and probably the patient may not have any successful weaning in the future. Prognosis poor. I'll discussion with the family and they understand the situation. There is tender the patient and up requiring long-term ventilator support. They're willing to undertake all consistencies. The family wanted to hold on to a full CODE STATUS. we'll continue to follow make further recommendations based on his progress. This evaluation was done and more than 30 minutes. This is a critically care e valuation. Long-term prognosis poor baseline above-mentioned comorbidities. Time with Patient: Greater than 30
[2022-04-15] MEDS: DEXTROSE 5% IN WATER 1,000 ML IV SCH ×2 (12:11→22:57)
--- NOTE | 2022-04-15 12:28 | P.PN ---
Progress Note - Text Progress Note Date: 04/15/22 Patient's PEG tube site is clean. He'll continue receive supportive care.
--- NOTE | 2022-04-15 13:52 | P.CNNES ---
History of Present Illness Consult date: 04/15/22 Requesting physician: Ryan Andre Reason for Consult: CT findings suspicious for acute ischemia History of Present Illness: This is a 71-year-old gentleman who presented to our emergency department on 03/31/2022 for shortness of breath. Neurology is consulted for suspicious for stroke on CT of the head. History was obtained from medical record as well as the patient's nurse. Patient had extensive hospital stay predominantly had respiratory issues and had sepsis, was found COVID-19 pneumonia during this stay. CT of the head was ordered by the ICU team since patient continued to be altered. The CT head is reported as limited by artifact particularly the medication the posterior fossa. Grossly no acute hemorrhage or mass effect. However there is intermediate low attenuation in the superior right parietal and left posterior parietal lobes suspicious for recent ischemia. Recommend follow- up MRI. Degenerative and nonspecific white matter changes most typical of remote ischemia. I personally reviewed the CT of the head and I agree with the repot. Of note, during this hospital stay he had acute on chronic toxemia can and hypercapnic respiratory failure was intubated and was on mechanical ventilation on 03/31/2022 since she was on prolonged intubation he eventually the received a trach and a PEG on 04/06/2022. During this hospital stay it was noted the patient has bilateral pneumonia and sepsis secondary due to serratia and Haemophilus. He also was found to have COVID-19 infection confirmed on 0 827 and again positive on 0 8:30. During his hospital visit he had acute and kidney injury was resolved. Per the patient's nurse she's been off IV propofol for at least 1 week. He's been on Dilaudid but today he has not got any Dilaudid since 8:00 this morning. Per the nurse he probably got the Dilaudid yesterday 3-4 times. Prior to that he was getting more frequent. This hospital visit the patient was afebrile with a T-max on 04/08/2022 of 100.7F and afebrile since 04/10/2022 This carbon dioxide is 50. His latest sodium is 150 which is trending up. HbA1c 7.6. 2-D echo was reported as left ventricular ejection fraction of 25-30% with a global hypokinesis. Moderately dilated right ventricle. Left atrium is normal in size. No IV TPA for stroke since unknown last normal and the risk outweighed the benefit. Review of Systems Review of system is limited with apparent positive and negative as per HPI. Past Medical History Past Medical History: Cancer, COPD, Hearing Disorder / Deafness, Hyperlipidemia, Osteoarthritis (OA), Pneumonia, Prostate Disorder Additional Past Medical History / Comment(s): Hard of hearing, has hearing aids but does not use them. FREQUENT HOARSENESS. HX PNEUMONIA/VENITLATED/TRACH @ [facility] FROM 06/12/18 TO 06/30/18. O2/2L @ NIGHT. RESTLESS LEG. NEUROPATHY. HX BLADDER CALCULI. HX ONE SEIZURE DURING BRONCHOSCOPY. LUNG CA 11/2021. History of Any Multi-Drug Resistant Organisms: None Reported Past Surgical History: Heart Catheterization, Prostate Surgery Additional Past Surgical History / Comment(s): TURP, RIGHT WRIST BIOPSY (SQ CELL). BILATERAL KNEE ARTHROSCOPIES. TRIGGER FINGER RELEASE BILATERAL HANDS. AMPUTATION TIP OF LEFT INDEX FINGER. Tracheotomy. BRONCHOSCOPY. Past Anesthesia/Blood Transfusion Reactions: No Reported Reaction Past Psychological History: Anxiety Smoking Status: Former smoker Past Alcohol Use History: Rare Additional Past Alcohol Use History / Comment(s): QUIT SMOKING February 2021. SMOKED 1/2 PPD FOR 50+ YEARS. Past Drug Use History: None Reported - Past Family History Mother Family Medical History: Cancer Additional Family Medical History / Comment(s): LUNG Cancer. Father Family Medical History: Cancer Medications and Allergies Home Medications Medication Instructions Recorded Confirmed Type ALPRAZolam [Xanax] 0.5 mg PO TID 09/08/18 03/31/22 History Atorvastatin [Lipitor] 10 mg PO HS 09/08/18 03/31/22 History HYDROcodone/APAP 10-325MG [[place] 1 tab PO QID 09/08/18 03/31/22 History 10-325] Ipratropium-Albuterol Nebulize 3 ml INHALATION RT-QID 09/08/18 03/31/22 History [Duoneb 0.5 mg-3 mg/3 ml Soln] Montelukast [Singulair] 10 mg PO HS 09/08/18 03/31/22 History Theophylline 12 Hour [Jaskaran-Dur] 300 mg PO BID 09/08/18 03/31/22 History rOPINIRole HCL [Requip] 0.5 mg PO HS 09/08/18 03/31/22 History Calcium Carbonate [Calcium] 600 mg PO HS 11/28/18 03/31/22 History Multivitamins, Thera [Multivitamin 1 tab PO DAILY 11/28/18 03/31/22 History (formulary)] Aspirin EC [Ecotrin Low Dose] 81 mg PO DAILY 04/30/21 03/31/22 History Cholecalciferol [Vitamin D3 (25 50 mcg PO DAILY 04/30/21 03/31/22 History Mcg = 1000 Iu)] Pantoprazole [Protonix] 40 mg PO DAILY 04/30/21 03/31/22 History Albuterol Sulfate [Albuterol 2 puff PO RT-Q6H PRN 03/31/22 03/31/22 History Sulfate Hfa] Dm/Acetaminophen/Doxylamine [Vicks 30 ml PO HS 03/31/22 03/31/22 History Nyquil Cold-Flu Liquid] Fluticasone/Umeclidin/Vilanter 1 puff INHALATION RT-DAILY 03/31/22 03/31/22 History [Trelegy Ellipta 200-62.5-25] Gabapentin [Neurontin] 300 mg PO TID 03/31/22 03/31/22 History Latanoprost/Pf [Latanoprost 0.005% 1 drop BOTH EYES HS 03/31/22 03/31/22 History Eye Drop] guaiFENesin 400 mg PO BID 03/31/22 03/31/22 History predniSONE 10 mg PO DAILY 03/31/22 03/31/22 History Allergies Allergy/AdvReac Type Severity Reaction Status Date / Time No Known Allergies Allergy Verified 03/31/22 22:27 Physical Examination - Vital Signs Vital Signs: Vital Signs Temp Pulse Resp BP Pulse Ox FiO2 04/15/22 12:00 98.3 F 91 32 H 94 L 50 04/15/22 11:00 92 27 H 97 04/15/22 10:51 50 04/15/22 10:00 94 35 H 95 04/15/22 09:00 98 33 H 95 04/15/22 08:00 98.7 F 101 H 91 H 116/66 95 60 04/15/22 07:01 60 04/15/22 07:00 97 37 H 96 04/15/22 06:00 93 29 H 96 04/15/22 05:00 86 22 96 04/15/22 04:20 60 04/15/22 04:00 98.9 F 106 H 28 H 97 60 04/15/22 03:00 87 97 04/15/22 02:00 86 95 04/15/22 01:00 88 22 96 04/15/22 00:11 60 04/15/22 00:00 98.2 F 85 22 97 60 04/14/22 23:05 87 22 97 04/14/22 23:00 90 22 97 04/14/22 22:00 90 22 96 04/14/22 21:00 87 22 97 04/14/22 20:00 98.4 F 89 22 96 60 04/14/22 19:11 60 04/14/22 19:00 91 23 96 04/14/22 18:00 93 22 98 04/14/22 17:00 95 22 98 04/14/22 16:00 98 22 96 60 04/14/22 15:00 98.4 F 90 22 96 04/14/22 14:40 60 04/14/22 14:00 88 22 116/66 96 60 Intake and Output 04/14/22 04/15/22 04/15/22 22:59 06:59 14:59 Intake Total 484 511.051 286 Output Total 745 790 525 Balance -261 -278.949 -239 Intake: IV 184 184 118 Lactated ringers 160 160 100 pressure bag 24 24 18 Intake, IV Titration 27.051 168 Amount Clevidipine Butyrate 25 27.051 68 mg In Empty Bag 1 bag @ 1 MG/HR 2 mls/hr IV .Q24H NESHA Rx#:[id number] Dextrose 5% in Water 1, 100 000 ml @ 100 mls/hr IV . Q10H NESHA Rx#:[id number] Tube Feeding 240 240 Other 60 60 Output: Urine 745 790 525 Other: Voiding Method Indwelling Catheter Indwelling Catheter Indwelling Catheter Weight 86.2 kg 86.2 kg ABP, PAP, CO, CI - Last 8 Hours Arterial Blood Pressure 154/58 Arterial Blood Pressure 149/57 Arterial Blood Pressure 112/52 Arterial Blood Pressure 142/52 Arterial Blood Pressure 163/54 Arterial Blood Pressure 158/53 Arterial Blood Pressure 173/54 GENERAL: The patient is lying in bed and does not appear in acute distress. CHEST: The heart rate is regular rate rhythm. No murmurs to auscultation. LUNG: Clear to auscultation bilaterally and sounds rhonia. Not labored breathing. He has trach and on vent. ABDOMEN/GI: Bowel sounds present in all 4 quadrants. No tenderness to palpation throughout. NEUROLOGICAL: Limited because of his condition. Higher mental function: The patient is comatose GCS 5 (E3, VT1, M1). He would briefly open his eyes to voice. Not verbalizing or following commands. Cranial nerves: The pupils are round, equal and reactive to light. No facial weakness. He would move his head side to side upon examining him. Otherwise could not assess rest. Motor: The strength is hard to assess but to painful stimuli he would grimaces his face and move his head side to side. Otherwise no spontaneous movement. Decrease tone throughout. Cerebellum: Sensation: Could not assess light touch on pinprick but would grimace face to painful stimuli throughout. Reflexes (right/left): 0-1+ throughout. Plantars are mute bilaterally. Results - Laboratory Findings CBC and BMP: 04/15/22 08:50 04/15/22 08:50 Abnormal Lab Findings: Abnormal Labs 03/31/22 03/31/22 03/31/22 21:42 21:42 21:42 WBC RBC 3.78 L Hgb 11.1 L Hct 36.9 L MCV MCHC 30.2 L RDW 20.0 H Plt Count Neutrophils # Lymphocytes # 0.7 L Lymphocytes # (Manual) Metamyelocytes # (Man) Nucleated RBCs Macrocytosis D-Dimer ABG pH ABG pCO2 ABG pO2 ABG HCO3 ABG Total CO2 ABG O2 Saturation ABG Hematocrit Hemoglobin Sodium Potassium Chloride 96 L Carbon Dioxide 32 H BUN 37 H Creatinine Glucose 147 H POC Glucose (mg/dL) Hemoglobin A1c Total Bilirubin Alkaline Phosphatase 173 H Troponin I 0.083 H* C-Reactive Protein Total Protein 6.0 L Albumin 3.1 L Procalcitonin Urine Protein Urine Blood Hyaline Casts Urine Mucus Coronavirus (PCR) 03/31/22 04/01/22 04/01/22 22:04 00:35 00:35 WBC RBC Hgb Hct MCV MCHC RDW Plt Count Neutrophils # Lymphocytes # Lymphocytes # (Manual) Metamyelocytes # (Man) Nucleated RBCs Macrocytosis D-Dimer ABG pH 7.18 L* 7.12 L* ABG pCO2 92 H* 109 H* ABG pO2 235 H ABG HCO3 34 H 35 H ABG Total CO2 37 H 39 H ABG O2 Saturation 99.7 H ABG Hematocrit Hemoglobin Sodium Potassium Chloride Carbon Dioxide BUN Creatinine Glucose POC Glucose (mg/dL) Hemoglobin A1c Total Bilirubin Alkaline Phosphatase Troponin I 0.093 H* C-Reactive Protein Total Protein Albumin Procalcitonin Urine Protein Urine Blood Hyaline Casts Urine Mucus Coronavirus (PCR) 04/01/22 04/01/22 04/01/22 04:03 04:40 05:15 WBC RBC Hgb Hct MCV MCHC RDW Plt Count Neutrophils # Lymphocytes # Lymphocytes # (Manual) Metamyelocytes # (Man) Nucleated RBCs Macrocytosis D-Dimer ABG pH 7.32 L ABG pCO2 62 H ABG pO2 299 H ABG HCO3 32 H ABG Total CO2 34 H ABG O2 Saturation 100.0 H ABG Hematocrit Hemoglobin Sodium Potassium Chloride Carbon Dioxide BUN Creatinine Glucose POC Glucose (mg/dL) 231 H Hemoglobin A1c Total Bilirubin Alkaline Phosphatase Troponin I C-Reactive Protein Total Protein Albumin Procalcitonin Urine Protein 1+ H Urine Blood Moderate H Hyaline Casts 8 H Urine Mucus Few H Coronavirus (PCR) 04/01/22 04/01/22 04/01/22 06:25 08:37 11:53 WBC RBC Hgb Hct MCV MCHC RDW Plt Count Neutrophils # Lymphocytes # Lymphocytes # (Manual) Metamyelocytes # (Man) Nucleated RBCs Macrocytosis D-Dimer ABG pH ABG pCO2 ABG pO2 ABG HCO3 ABG Total CO2 ABG O2 Saturation ABG Hematocrit Hemoglobin Sodium Potassium Chloride Carbon Dioxide BUN Creatinine Glucose POC Glucose (mg/dL) 242 H 183 H Hemoglobin A1c Total Bilirubin Alkaline Phosphatase Troponin I 0.096 H* C-Reactive Protein Total Protein Albumin Procalcitonin Urine Protein Urine Blood Hyaline Casts Urine Mucus Coronavirus (PCR) 04/01/22 04/01/22 04/02/22 20:07 23:34 04:10 WBC RBC Hgb Hct MCV MCHC RDW Plt Count Neutrophils # Lymphocytes # Lymphocytes # (Manual) Metamyelocytes # (Man) Nucleated RBCs Macrocytosis D-Dimer ABG pH ABG pCO2 ABG pO2 ABG HCO3 ABG Total CO2 ABG O2 Saturation ABG Hematocrit Hemoglobin Sodium Potassium Chloride Carbon Dioxide BUN Creatinine Glucose POC Glucose (mg/dL) 134 H 191 H Hemoglobin A1c Total Bilirubin Alkaline Phosphatase Troponin I C-Reactive Protein Total Protein Albumin Procalcitonin 1.19 H Urine Protein Urine Blood Hyaline Casts Urine Mucus Coronavirus (PCR) 04/02/22 04/02/22 04/02/22 04:10 04:10 04:15 WBC RBC 2.91 L Hgb 8.7 L D Hct 29.4 L MCV 101.0 H MCHC 29.6 L RDW 20.3 H Plt Count Neutrophils # Lymphocytes # 0.2 L Lymphocytes # (Manual) Metamyelocytes # (Man) Nucleated RBCs Macrocytosis D-Dimer ABG pH ABG pCO2 ABG pO2 ABG HCO3 ABG Total CO2 ABG O2 Saturation ABG Hematocrit Hemoglobin Sodium Potassium Chloride Carbon Dioxide BUN 61 H Creatinine 1.32 H Glucose 148 H POC Glucose (mg/dL) 153 H Hemoglobin A1c Total Bilirubin Alkaline Phosphatase Troponin I C-Reactive Protein Total Protein Albumin Procalcitonin Urine Protein Urine Blood Hyaline Casts Urine Mucus Coronavirus (PCR) 04/02/22 04/02/22 04/02/22 05:38 06:56 06:58 WBC RBC Hgb Hct MCV MCHC RDW Plt Count Neutrophils # Lymphocytes # Lymphocytes # (Manual) Metamyelocytes # (Man) Nucleated RBCs Macrocytosis D-Dimer ABG pH 7.32 L ABG pCO2 55 H ABG pO2 ABG HCO3 29 H ABG Total CO2 30 H ABG O2 Saturation 98.1 H ABG Hematocrit Hemoglobin Sodium Potassium Chloride Carbon Dioxide BUN Creatinine Glucose POC Glucose (mg/dL) 292 H 189 H Hemoglobin A1c Total Bilirubin Alkaline Phosphatase Troponin I C-Reactive Protein Total Protein Albumin Procalcitonin Urine Protein Urine Blood Hyaline Casts Urine Mucus Coronavirus (PCR) 04/02/22 04/02/22 04/02/22 11:49 15:02 16:46 WBC RBC Hgb Hct MCV MCHC RDW Plt Count Neutrophils # Lymphocytes # Lymphocytes # (Manual) Metamyelocytes # (Man) Nucleated RBCs Macrocytosis D-Dimer 4.14 H ABG pH ABG pCO2 ABG pO2 ABG HCO3 ABG Total CO2 ABG O2 Saturation ABG Hematocrit Hemoglobin Sodium Potassium Chloride Carbon Dioxide BUN Creatinine Glucose POC Glucose (mg/dL) 225 H 135 H Hemoglobin A1c Total Bilirubin Alkaline Phosphatase Troponin I C-Reactive Protein Total Protein Albumin Procalcitonin Urine Protein Urine Blood Hyaline Casts Urine Mucus Coronavirus (PCR) 04/02/22 04/02/22 04/03/22 19:57 23:48 04:10 WBC RBC 2.90 L Hgb 8.8 L Hct 29.3 L MCV 101.1 H MCHC 30.0 L RDW 20.9 H Plt Count Neutrophils # Lymphocytes # Lymphocytes # (Manual) 0.15 L Metamyelocytes # (Man) 0.29 H Nucleated RBCs 5 H Macrocytosis D-Dimer ABG pH ABG pCO2 ABG pO2 ABG HCO3 ABG Total CO2 ABG O2 Saturation ABG Hematocrit Hemoglobin Sodium Potassium Chloride Carbon Dioxide BUN Creatinine Glucose POC Glucose (mg/dL) 151 H 186 H Hemoglobin A1c Total Bilirubin Alkaline Phosphatase Troponin I C-Reactive Protein Total Protein Albumin Procalcitonin Urine Protein Urine Blood Hyaline Casts Urine Mucus Coronavirus (PCR) 04/03/22 04/03/22 04/03/22 04:10 04:22 05:40 WBC RBC Hgb Hct MCV MCHC RDW Plt Count Neutrophils # Lymphocytes # Lymphocytes # (Manual) Metamyelocytes # (Man) Nucleated RBCs Macrocytosis D-Dimer ABG pH 7.34 L ABG pCO2 56 H ABG pO2 ABG HCO3 30 H ABG Total CO2 32 H ABG O2 Saturation 98.1 H ABG Hematocrit Hemoglobin Sodium Potassium Chloride Carbon Dioxide BUN 67 H Creatinine 1.36 H Glucose 164 H POC Glucose (mg/dL) 173 H Hemoglobin A1c Total Bilirubin Alkaline Phosphatase Troponin I C-Reactive Protein Total Protein Albumin Procalcitonin Urine Protein Urine Blood Hyaline Casts Urine Mucus Coronavirus (PCR) 04/03/22 04/03/22 04/03/22 06:58 13:20 15:04 WBC RBC Hgb Hct MCV MCHC RDW Plt Count Neutrophils # Lymphocytes # Lymphocytes # (Manual) Metamyelocytes # (Man) Nucleated RBCs Macrocytosis D-Dimer ABG pH ABG pCO2 ABG pO2 ABG HCO3 ABG Total CO2 ABG O2 Saturation ABG Hematocrit Hemoglobin Sodium Potassium Chloride Carbon Dioxide BUN Creatinine Glucose POC Glucose (mg/dL) 227 H 228 H 226 H Hemoglobin A1c Total Bilirubin Alkaline Phosphatase Troponin I C-Reactive Protein Total Protein Albumin Procalcitonin Urine Protein Urine Blood Hyaline Casts Urine Mucus Coronavirus (PCR) 04/03/22 04/03/22 04/04/22 19:10 23:45 03:24 WBC RBC Hgb Hct MCV MCHC RDW Plt Count Neutrophils # Lymphocytes # Lymphocytes # (Manual) Metamyelocytes # (Man) Nucleated RBCs Macrocytosis D-Dimer ABG pH ABG pCO2 ABG pO2 ABG HCO3 ABG Total CO2 ABG O2 Saturation ABG Hematocrit Hemoglobin Sodium Potassium Chloride Carbon Dioxide BUN Creatinine Glucose POC Glucose (mg/dL) 152 H 207 H 231 H Hemoglobin A1c Total Bilirubin Alkaline Phosphatase Troponin I C-Reactive Protein Total Protein Albumin Procalcitonin Urine Protein Urine Blood Hyaline Casts Urine Mucus Coronavirus (PCR) 04/04/22 04/04/22 04/04/22 04:05 04:05 05:40 WBC RBC 3.18 L Hgb 9.7 L Hct 32.7 L MCV 102.7 H MCHC 29.5 L RDW 21.0 H Plt Count 468 H Neutrophils # 8.1 H Lymphocytes # 0.3 L Lymphocytes # (Manual) Metamyelocytes # (Man) Nucleated RBCs Macrocytosis Marked A D-Dimer ABG pH 7.29 L ABG pCO2 67 H ABG pO2 69 L ABG HCO3 32 H ABG Total CO2 34 H ABG O2 Saturation 92.7 L ABG Hematocrit Hemoglobin Sodium Potassium Chloride Carbon Dioxide BUN 60 H Creatinine Glucose 215 H POC Glucose (mg/dL) Hemoglobin A1c Total Bilirubin 0.1 L Alkaline Phosphatase 136 H Troponin I C-Reactive Protein Total Protein 5.1 L Albumin 2.6 L Procalcitonin Urine Protein Urine Blood Hyaline Casts Urine Mucus Coronavirus (PCR) 04/04/22 04/04/22 04/04/22 06:55 12:17 15:30 WBC RBC Hgb Hct MCV MCHC RDW Plt Count Neutrophils # Lymphocytes # Lymphocytes # (Manual) Metamyelocytes # (Man) Nucleated RBCs Macrocytosis D-Dimer ABG pH ABG pCO2 ABG pO2 ABG HCO3 ABG Total CO2 ABG O2 Saturation ABG Hematocrit Hemoglobin Sodium Potassium Chloride Carbon Dioxide BUN Creatinine Glucose POC Glucose (mg/dL) 199 H 180 H 190 H Hemoglobin A1c Total Bilirubin Alkaline Phosphatase Troponin I C-Reactive Protein Total Protein Albumin Procalcitonin Urine Protein Urine Blood Hyaline Casts Urine Mucus Coronavirus (PCR) 04/04/22 04/04/22 04/05/22 19:03 23:26 03:57 WBC RBC Hgb Hct MCV MCHC RDW Plt Count Neutrophils # Lymphocytes # Lymphocytes # (Manual) Metamyelocytes # (Man) Nucleated RBCs Macrocytosis D-Dimer ABG pH ABG pCO2 ABG pO2 ABG HCO3 ABG Total CO2 ABG O2 Saturation ABG Hematocrit Hemoglobin Sodium Potassium Chloride Carbon Dioxide BUN Creatinine Glucose POC Glucose (mg/dL) 158 H 114 H 202 H Hemoglobin A1c Total Bilirubin Alkaline Phosphatase Troponin I C-Reactive Protein Total Protein Albumin Procalcitonin Urine Protein Urine Blood Hyaline Casts Urine Mucus Coronavirus (PCR) 04/05/22 04/05/22 04/05/22 04:20 04:20 05:45 WBC 11.8 H RBC 3.19 L Hgb 9.9 L Hct 33.3 L MCV 104.4 H MCHC 29.6 L RDW 21.1 H Plt Count Neutrophils # 11.1 H Lymphocytes # 0.3 L Lymphocytes # (Manual) Metamyelocytes # (Man) Nucleated RBCs Macrocytosis Marked A D-Dimer ABG pH 7.28 L ABG pCO2 69 H ABG pO2 69 L ABG HCO3 33 H ABG Total CO2 35 H ABG O2 Saturation 93.1 L ABG Hematocrit Hemoglobin Sodium 146 H Potassium Chloride 108 H Carbon Dioxide 32 H BUN 52 H Creatinine 0.64 L Glucose 235 H POC Glucose (mg/dL) Hemoglobin A1c Total Bilirubin <0.1 L Alkaline Phosphatase 137 H Troponin I C-Reactive Protein Total Protein 5.2 L Albumin 2.5 L Procalcitonin Urine Protein Urine Blood Hyaline Casts Urine Mucus Coronavirus (PCR) 04/05/22 04/05/22 04/05/22 06:19 08:12 11:31 WBC RBC Hgb Hct MCV MCHC RDW Plt Count Neutrophils # Lymphocytes # Lymphocytes # (Manual) Metamyelocytes # (Man) Nucleated RBCs Macrocytosis D-Dimer ABG pH ABG pCO2 ABG pO2 ABG HCO3 ABG Total CO2 ABG O2 Saturation ABG Hematocrit Hemoglobin Sodium Potassium Chloride Carbon Dioxide BUN Creatinine Glucose POC Glucose (mg/dL) 220 H 238 H 185 H Hemoglobin A1c Total Bilirubin Alkaline Phosphatase Troponin I C-Reactive Protein Total Protein Albumin Procalcitonin Urine Protein Urine Blood Hyaline Casts Urine Mucus Coronavirus (PCR) 04/05/22 04/05/22 04/05/22 16:26 21:43 23:42 WBC RBC Hgb Hct MCV MCHC RDW Plt Count Neutrophils # Lymphocytes # Lymphocytes # (Manual) Metamyelocytes # (Man) Nucleated RBCs Macrocytosis D-Dimer ABG pH ABG pCO2 ABG pO2 ABG HCO3 ABG Total CO2 ABG O2 Saturation ABG Hematocrit Hemoglobin Sodium Potassium Chloride Carbon Dioxide BUN Creatinine Glucose POC Glucose (mg/dL) 167 H 188 H 173 H Hemoglobin A1c Total Bilirubin Alkaline Phosphatase Troponin I C-Reactive Protein Total Protein Albumin Procalcitonin Urine Protein Urine Blood Hyaline Casts Urine Mucus Coronavirus (PCR) 04/06/22 04/06/22 04/06/22 03:45 03:45 05:27 WBC 11.4 H RBC 3.08 L Hgb 9.4 L Hct 31.6 L MCV 102.7 H MCHC 29.6 L RDW 21.3 H Plt Count Neutrophils # Lymphocytes # Lymphocytes # (Manual) Metamyelocytes # (Man) Nucleated RBCs Macrocytosis Marked A D-Dimer ABG pH 7.33 L ABG pCO2 65 H ABG pO2 ABG HCO3 34 H ABG Total CO2 36 H ABG O2 Saturation 97.3 H ABG Hematocrit Hemoglobin Sodium 148 H Potassium Chloride 109 H Carbon Dioxide 32 H BUN 47 H Creatinine Glucose 144 H POC Glucose (mg/dL) Hemoglobin A1c Total Bilirubin <0.1 L Alkaline Phosphatase 146 H Troponin I C-Reactive Protein Total Protein 5.1 L Albumin 2.5 L Procalcitonin Urine Protein Urine Blood Hyaline Casts Urine Mucus Coronavirus (PCR) 04/06/22 04/06/22 04/06/22 08:35 12:52 15:52 WBC RBC Hgb Hct MCV MCHC RDW Plt Count Neutrophils # Lymphocytes # Lymphocytes # (Manual) Metamyelocytes # (Man) Nucleated RBCs Macrocytosis D-Dimer ABG pH ABG pCO2 ABG pO2 ABG HCO3 ABG Total CO2 ABG O2 Saturation ABG Hematocrit Hemoglobin Sodium Potassium Chloride Carbon Dioxide BUN Creatinine Glucose POC Glucose (mg/dL) 205 H 205 H 182 H Hemoglobin A1c Total Bilirubin Alkaline Phosphatase Troponin I C-Reactive Protein Total Protein Albumin Procalcitonin Urine Protein Urine Blood Hyaline Casts Urine Mucus Coronavirus (PCR) 04/06/22 04/07/22 04/07/22 20:17 00:34 05:00 WBC RBC 2.78 L Hgb 8.7 L Hct 28.6 L MCV 102.6 H MCHC 30.3 L RDW 21.7 H Plt Count Neutrophils # Lymphocytes # Lymphocytes # (Manual) Metamyelocytes # (Man) Nucleated RBCs Macrocytosis Marked A D-Dimer ABG pH ABG pCO2 ABG pO2 ABG HCO3 ABG Total CO2 ABG O2 Saturation ABG Hematocrit Hemoglobin Sodium Potassium Chloride Carbon Dioxide BUN Creatinine Glucose POC Glucose (mg/dL) 140 H 155 H Hemoglobin A1c Total Bilirubin Alkaline Phosphatase Troponin I C-Reactive Protein Total Protein Albumin Procalcitonin Urine Protein Urine Blood Hyaline Casts Urine Mucus Coronavirus (PCR) 04/07/22 04/07/22 04/07/22 05:00 05:03 05:33 WBC RBC Hgb Hct MCV MCHC RDW Plt Count Neutrophils # Lymphocytes # Lymphocytes # (Manual) Metamyelocytes # (Man) Nucleated RBCs Macrocytosis D-Dimer ABG pH 7.31 L ABG pCO2 68 H ABG pO2 ABG HCO3 34 H ABG Total CO2 36 H ABG O2 Saturation ABG Hematocrit Hemoglobin Sodium Potassium Chloride Carbon Dioxide 33 H BUN 32 H Creatinine Glucose 167 H POC Glucose (mg/dL) 171 H Hemoglobin A1c Total Bilirubin <0.1 L Alkaline Phosphatase 159 H Troponin I C-Reactive Protein Total Protein 4.8 L Albumin 2.3 L Procalcitonin Urine Protein Urine Blood Hyaline Casts Urine Mucus Coronavirus (PCR) 04/07/22 04/07/22 04/07/22 08:56 11:25 16:14 WBC RBC Hgb Hct MCV MCHC RDW Plt Count Neutrophils # Lymphocytes # Lymphocytes # (Manual) Metamyelocytes # (Man) Nucleated RBCs Macrocytosis D-Dimer ABG pH ABG pCO2 ABG pO2 ABG HCO3 ABG Total CO2 ABG O2 Saturation ABG Hematocrit Hemoglobin Sodium Potassium Chloride Carbon Dioxide BUN Creatinine Glucose POC Glucose (mg/dL) 179 H 188 H 205 H Hemoglobin A1c Total Bilirubin Alkaline Phosphatase Troponin I C-Reactive Protein Total Protein Albumin Procalcitonin Urine Protein Urine Blood Hyaline Casts Urine Mucus Coronavirus (PCR) 04/07/22 04/08/22 04/08/22 20:37 00:02 04:00 WBC RBC 2.71 L Hgb 8.2 L Hct 27.5 L MCV 101.6 H MCHC 29.8 L RDW 21.2 H Plt Count Neutrophils # Lymphocytes # Lymphocytes # (Manual) Metamyelocytes # (Man) Nucleated RBCs Macrocytosis Marked A D-Dimer ABG pH ABG pCO2 ABG pO2 ABG HCO3 ABG Total CO2 ABG O2 Saturation ABG Hematocrit Hemoglobin Sodium Potassium Chloride Carbon Dioxide BUN Creatinine Glucose POC Glucose (mg/dL) 226 H 193 H Hemoglobin A1c Total Bilirubin Alkaline Phosphatase Troponin I C-Reactive Protein Total Protein Albumin Procalcitonin Urine Protein Urine Blood Hyaline Casts Urine Mucus Coronavirus (PCR) 04/08/22 04/08/22 04/08/22 04:00 04:30 06:36 WBC RBC Hgb Hct MCV MCHC RDW Plt Count Neutrophils # Lymphocytes # Lymphocytes # (Manual) Metamyelocytes # (Man) Nucleated RBCs Macrocytosis D-Dimer ABG pH ABG pCO2 61 H ABG pO2 ABG HCO3 35 H ABG Total CO2 37 H ABG O2 Saturation 97.7 H ABG Hematocrit Hemoglobin Sodium Potassium Chloride Carbon Dioxide 33 H BUN 31 H Creatinine Glucose 170 H POC Glucose (mg/dL) 180 H Hemoglobin A1c Total Bilirubin <0.1 L Alkaline Phosphatase 142 H Troponin I C-Reactive Protein Total Protein 4.6 L Albumin 2.2 L Procalcitonin Urine Protein Urine Blood Hyaline Casts Urine Mucus Coronavirus (PCR) 04/08/22 04/08/22 04/08/22 09:26 12:02 15:21 WBC RBC Hgb Hct MCV MCHC RDW Plt Count Neutrophils # Lymphocytes # Lymphocytes # (Manual) Metamyelocytes # (Man) Nucleated RBCs Macrocytosis D-Dimer ABG pH ABG pCO2 ABG pO2 ABG HCO3 ABG Total CO2 ABG O2 Saturation ABG Hematocrit Hemoglobin Sodium Potassium Chloride Carbon Dioxide BUN Creatinine Glucose POC Glucose (mg/dL) 178 H 179 H 161 H Hemoglobin A1c Total Bilirubin Alkaline Phosphatase Troponin I C-Reactive Protein Total Protein Albumin Procalcitonin Urine Protein Urine Blood Hyaline Casts Urine Mucus Coronavirus (PCR) 04/08/22 04/08/22 04/09/22 17:42 21:40 00:27 WBC RBC Hgb Hct MCV MCHC RDW Plt Count Neutrophils # Lymphocytes # Lymphocytes # (Manual) Metamyelocytes # (Man) Nucleated RBCs Macrocytosis D-Dimer ABG pH ABG pCO2 ABG pO2 ABG HCO3 ABG Total CO2 ABG O2 Saturation ABG Hematocrit Hemoglobin Sodium Potassium Chloride Carbon Dioxide BUN Creatinine Glucose POC Glucose (mg/dL) 155 H 142 H 176 H Hemoglobin A1c Total Bilirubin Alkaline Phosphatase Troponin I C-Reactive Protein Total Protein Albumin Procalcitonin Urine Protein Urine Blood Hyaline Casts Urine Mucus Coronavirus (PCR) 04/09/22 04/09/22 04/09/22 04:05 04:05 04:05 WBC RBC 2.71 L Hgb 8.3 L Hct 27.1 L MCV MCHC 30.7 L RDW 21.5 H Plt Count Neutrophils # 8.3 H Lymphocytes # 0.3 L Lymphocytes # (Manual) Metamyelocytes # (Man) Nucleated RBCs Macrocytosis D-Dimer ABG pH ABG pCO2 ABG pO2 ABG HCO3 ABG Total CO2 ABG O2 Saturation ABG Hematocrit Hemoglobin Sodium Potassium Chloride Carbon Dioxide 36 H BUN 30 H Creatinine 0.60 L Glucose 140 H POC Glucose (mg/dL) Hemoglobin A1c Total Bilirubin <0.1 L Alkaline Phosphatase 198 H Troponin I C-Reactive Protein Total Protein 4.7 L Albumin 2.2 L Procalcitonin 0.22 H Urine Protein Urine Blood Hyaline Casts Urine Mucus Coronavirus (PCR) 04/09/22 04/09/22 04/09/22 05:41 05:52 11:59 WBC RBC Hgb Hct MCV MCHC RDW Plt Count Neutrophils # Lymphocytes # Lymphocytes # (Manual) Metamyelocytes # (Man) Nucleated RBCs Macrocytosis D-Dimer ABG pH ABG pCO2 63 H ABG pO2 79 L ABG HCO3 37 H ABG Total CO2 38 H ABG O2 Saturation ABG Hematocrit Hemoglobin Sodium Potassium Chloride Carbon Dioxide BUN Creatinine Glucose POC Glucose (mg/dL) 171 H 180 H Hemoglobin A1c Total Bilirubin Alkaline Phosphatase Troponin I C-Reactive Protein Total Protein Albumin Procalcitonin Urine Protein Urine Blood Hyaline Casts Urine Mucus Coronavirus (PCR) 04/09/22 04/09/22 04/10/22 18:44 23:34 03:30 WBC 12.1 H RBC 2.69 L Hgb 8.1 L Hct 26.9 L MCV 100.1 H MCHC 30.2 L RDW 21.1 H Plt Count Neutrophils # Lymphocytes # Lymphocytes # (Manual) Metamyelocytes # (Man) Nucleated RBCs Macrocytosis D-Dimer ABG pH ABG pCO2 ABG pO2 ABG HCO3 ABG Total CO2 ABG O2 Saturation ABG Hematocrit Hemoglobin Sodium Potassium Chloride Carbon Dioxide BUN Creatinine Glucose POC Glucose (mg/dL) 173 H 174 H Hemoglobin A1c Total Bilirubin Alkaline Phosphatase Troponin I C-Reactive Protein Total Protein Albumin Procalcitonin Urine Protein Urine Blood Hyaline Casts Urine Mucus Coronavirus (PCR) 04/10/22 04/10/22 04/10/22 03:30 03:30 05:24 WBC RBC Hgb Hct MCV MCHC RDW Plt Count Neutrophils # Lymphocytes # Lymphocytes # (Manual) Metamyelocytes # (Man) Nucleated RBCs Macrocytosis D-Dimer ABG pH ABG pCO2 ABG pO2 ABG HCO3 ABG Total CO2 ABG O2 Saturation ABG Hematocrit Hemoglobin Sodium Potassium Chloride Carbon Dioxide 38 H BUN 35 H Creatinine 0.65 L Glucose 144 H POC Glucose (mg/dL) 174 H Hemoglobin A1c 7.6 H Total Bilirubin <0.1 L Alkaline Phosphatase 197 H Troponin I C-Reactive Protein Total Protein 4.9 L Albumin 2.3 L Procalcitonin Urine Protein Urine Blood Hyaline Casts Urine Mucus Coronavirus (PCR) 04/10/22 04/10/22 04/10/22 05:59 12:07 12:15 WBC RBC Hgb Hct MCV MCHC RDW Plt Count Neutrophils # Lymphocytes # Lymphocytes # (Manual) Metamyelocytes # (Man) Nucleated RBCs Macrocytosis D-Dimer ABG pH ABG pCO2 65 H ABG pO2 73 L ABG HCO3 40 H* ABG Total CO2 42 H ABG O2 Saturation ABG Hematocrit 24 L Hemoglobin 7.9 L Sodium Potassium Chloride Carbon Dioxide BUN Creatinine Glucose POC Glucose (mg/dL) 187 H Hemoglobin A1c Total Bilirubin Alkaline Phosphatase Troponin I C-Reactive Protein Total Protein Albumin Procalcitonin Urine Protein Urine Blood Hyaline Casts Urine Mucus Coronavirus (PCR) Detected A 04/10/22 04/10/22 04/10/22 18:52 18:55 23:29 WBC RBC Hgb Hct MCV MCHC RDW Plt Count Neutrophils # Lymphocytes # Lymphocytes # (Manual) Metamyelocytes # (Man) Nucleated RBCs Macrocytosis D-Dimer ABG pH ABG pCO2 ABG pO2 ABG HCO3 ABG Total CO2 ABG O2 Saturation ABG Hematocrit Hemoglobin Sodium Potassium Chloride Carbon Dioxide BUN Creatinine Glucose POC Glucose (mg/dL) 199 H 155 H Hemoglobin A1c Total Bilirubin Alkaline Phosphatase Troponin I C-Reactive Protein 20.3 H Total Protein Albumin Procalcitonin Urine Protein Urine Blood Hyaline Casts Urine Mucus Coronavirus (PCR) 04/11/22 04/11/22 04/11/22 03:34 03:34 05:26 WBC 11.3 H RBC 2.57 L Hgb 7.6 L Hct 26.0 L MCV 101.1 H MCHC 29.3 L RDW 20.7 H Plt Count Neutrophils # 10.4 H Lymphocytes # 0.4 L Lymphocytes # (Manual) Metamyelocytes # (Man) Nucleated RBCs Macrocytosis D-Dimer ABG pH ABG pCO2 ABG pO2 ABG HCO3 ABG Total CO2 ABG O2 Saturation ABG Hematocrit Hemoglobin Sodium Potassium Chloride Carbon Dioxide 44 H* BUN 38 H Creatinine Glucose 135 H POC Glucose (mg/dL) 173 H Hemoglobin A1c Total Bilirubin Alkaline Phosphatase Troponin I C-Reactive Protein Total Protein Albumin Procalcitonin Urine Protein Urine Blood Hyaline Casts Urine Mucus Coronavirus (PCR) 04/11/22 04/11/22 04/11/22 06:00 11:44 14:41 WBC RBC Hgb Hct MCV MCHC RDW Plt Count Neutrophils # Lymphocytes # Lymphocytes # (Manual) Metamyelocytes # (Man) Nucleated RBCs Macrocytosis D-Dimer ABG pH 7.33 L ABG pCO2 81 H* ABG pO2 172 H ABG HCO3 42 H* ABG Total CO2 45 H ABG O2 Saturation 99.8 H ABG Hematocrit 23 L Hemoglobin 7.5 L Sodium Potassium Chloride Carbon Dioxide BUN Creatinine Glucose POC Glucose (mg/dL) 153 H 167 H Hemoglobin A1c Total Bilirubin Alkaline Phosphatase Troponin I C-Reactive Protein Total Protein Albumin Procalcitonin Urine Protein Urine Blood Hyaline Casts Urine Mucus Coronavirus (PCR) 04/11/22 04/12/22 04/12/22 18:13 00:08 05:08 WBC RBC Hgb Hct MCV MCHC RDW Plt Count Neutrophils # Lymphocytes # Lymphocytes # (Manual) Metamyelocytes # (Man) Nucleated RBCs Macrocytosis D-Dimer ABG pH 7.31 L ABG pCO2 88 H* ABG pO2 71 L ABG HCO3 44 H* ABG Total CO2 47 H ABG O2 Saturation ABG Hematocrit 24 L Hemoglobin 7.8 L Sodium Potassium Chloride Carbon Dioxide BUN Creatinine Glucose POC Glucose (mg/dL) 207 H 217 H Hemoglobin A1c Total Bilirubin Alkaline Phosphatase Troponin I C-Reactive Protein Total Protein Albumin Procalcitonin Urine Protein Urine Blood Hyaline Casts Urine Mucus Coronavirus (PCR) 04/12/22 04/12/22 04/12/22 05:10 05:10 05:13 WBC 12.4 H RBC 2.70 L Hgb 8.0 L Hct 27.5 L MCV 101.8 H MCHC 29.1 L RDW 20.4 H Plt Count Neutrophils # 11.5 H Lymphocytes # 0.3 L Lymphocytes # (Manual) Metamyelocytes # (Man) Nucleated RBCs Macrocytosis Marked A D-Dimer ABG pH ABG pCO2 ABG pO2 ABG HCO3 ABG Total CO2 ABG O2 Saturation ABG Hematocrit Hemoglobin Sodium Potassium 5.3 H Chloride 96 L Carbon Dioxide 41 H* BUN 46 H Creatinine 0.59 L Glucose 189 H POC Glucose (mg/dL) 192 H Hemoglobin A1c Total Bilirubin <0.1 L Alkaline Phosphatase 237 H Troponin I C-Reactive Protein Total Protein 5.0 L Albumin 2.2 L Procalcitonin Urine Protein Urine Blood Hyaline Casts Urine Mucus Coronavirus (PCR) 04/12/22 04/12/22 04/13/22 11:14 17:27 00:52 WBC RBC Hgb Hct MCV MCHC RDW Plt Count Neutrophils # Lymphocytes # Lymphocytes # (Manual) Metamyelocytes # (Man) Nucleated RBCs Macrocytosis D-Dimer ABG pH ABG pCO2 ABG pO2 ABG HCO3 ABG Total CO2 ABG O2 Saturation ABG Hematocrit Hemoglobin Sodium Potassium Chloride Carbon Dioxide BUN Creatinine Glucose POC Glucose (mg/dL) 192 H 146 H 225 H Hemoglobin A1c Total Bilirubin Alkaline Phosphatase Troponin I C-Reactive Protein Total Protein Albumin Procalcitonin Urine Protein Urine Blood Hyaline Casts Urine Mucus Coronavirus (PCR) 04/13/22 04/13/22 04/13/22 04:25 04:25 04:25 WBC 13.7 H RBC 2.86 L Hgb 8.6 L Hct 30.6 L MCV 107.0 H D MCHC 28.1 L RDW 20.1 H Plt Count Neutrophils # Lymphocytes # Lymphocytes # (Manual) Metamyelocytes # (Man) Nucleated RBCs Macrocytosis Marked A D-Dimer ABG pH ABG pCO2 ABG pO2 ABG HCO3 ABG Total CO2 ABG O2 Saturation ABG Hematocrit Hemoglobin Sodium 146 H Potassium 6.0 H Chloride 95 L Carbon Dioxide 47 H* BUN 58 H Creatinine Glucose 206 H POC Glucose (mg/dL) Hemoglobin A1c Total Bilirubin Alkaline Phosphatase Troponin I C-Reactive Protein Total Protein Albumin Procalcitonin 0.47 H Urine Protein Urine Blood Hyaline Casts Urine Mucus Coronavirus (PCR) 04/13/22 04/13/22 04/13/22 05:03 06:13 10:18 WBC RBC Hgb Hct MCV MCHC RDW Plt Count Neutrophils # Lymphocytes # Lymphocytes # (Manual) Metamyelocytes # (Man) Nucleated RBCs Macrocytosis D-Dimer ABG pH 7.08 L* ABG pCO2 >120 H* ABG pO2 73 L ABG HCO3 ABG Total CO2 ABG O2 Saturation 93.5 L ABG Hematocrit 27 L Hemoglobin 8.8 L Sodium Potassium 5.8 H Chloride Carbon Dioxide BUN Creatinine Glucose POC Glucose (mg/dL) 197 H Hemoglobin A1c Total Bilirubin Alkaline Phosphatase Troponin I C-Reactive Protein Total Protein Albumin Procalcitonin Urine Protein Urine Blood Hyaline Casts Urine Mucus Coronavirus (PCR) 04/13/22 04/13/22 04/13/22 10:49 11:42 11:45 WBC RBC Hgb Hct MCV MCHC RDW Plt Count Neutrophils # Lymphocytes # Lymphocytes # (Manual) Metamyelocytes # (Man) Nucleated RBCs Macrocytosis D-Dimer ABG pH 7.22 L ABG pCO2 118 H* ABG pO2 ABG HCO3 49 H* ABG Total CO2 52 H ABG O2 Saturation 98.5 H ABG Hematocrit 25 L Hemoglobin 8.2 L Sodium Potassium Chloride Carbon Dioxide BUN Creatinine Glucose POC Glucose (mg/dL) 170 H Hemoglobin A1c Total Bilirubin Alkaline Phosphatase Troponin I C-Reactive Protein Total Protein Albumin Procalcitonin Urine Protein Urine Blood Hyaline Casts Urine Mucus Coronavirus (PCR) Detected A 04/13/22 04/13/22 04/14/22 13:29 17:16 00:12 WBC RBC Hgb Hct MCV MCHC RDW Plt Count Neutrophils # Lymphocytes # Lymphocytes # (Manual) Metamyelocytes # (Man) Nucleated RBCs Macrocytosis D-Dimer ABG pH ABG pCO2 ABG pO2 ABG HCO3 ABG Total CO2 ABG O2 Saturation ABG Hematocrit Hemoglobin Sodium Potassium Chloride Carbon Dioxide BUN Creatinine Glucose POC Glucose (mg/dL) 186 H 150 H 130 H Hemoglobin A1c Total Bilirubin Alkaline Phosphatase Troponin I C-Reactive Protein Total Protein Albumin Procalcitonin Urine Protein Urine Blood Hyaline Casts Urine Mucus Coronavirus (PCR) 04/14/22 04/14/22 04/14/22 04:10 04:10 05:48 WBC 10.7 H RBC 2.85 L Hgb 8.8 L Hct 30.8 L MCV 108.1 H MCHC 28.4 L RDW 19.5 H Plt Count Neutrophils # 9.6 H Lymphocytes # 0.3 L Lymphocytes # (Manual) Metamyelocytes # (Man) Nucleated RBCs Macrocytosis Marked A D-Dimer ABG pH 7.25 L ABG pCO2 115 H* ABG pO2 109 H ABG HCO3 51 H* ABG Total CO2 55 H ABG O2 Saturation 98.6 H ABG Hematocrit 26 L Hemoglobin 8.5 L Sodium 148 H Potassium 5.9 H Chloride 95 L Carbon Dioxide 48 H* BUN 63 H Creatinine Glucose 163 H POC Glucose (mg/dL) Hemoglobin A1c Total Bilirubin Alkaline Phosphatase Troponin I C-Reactive Protein Total Protein Albumin Procalcitonin Urine Protein Urine Blood Hyaline Casts Urine Mucus Coronavirus (PCR) 04/14/22 04/14/22 04/14/22 05:54 10:10 10:12 WBC RBC Hgb Hct MCV MCHC RDW Plt Count Neutrophils # Lymphocytes # Lymphocytes # (Manual) Metamyelocytes # (Man) Nucleated RBCs Macrocytosis D-Dimer ABG pH 7.34 L ABG pCO2 101 H* ABG pO2 78 L ABG HCO3 55 H* ABG Total CO2 58 H ABG O2 Saturation 97.3 H ABG Hematocrit 26 L Hemoglobin 8.3 L Sodium Potassium 5.4 H Chloride Carbon Dioxide BUN Creatinine Glucose POC Glucose (mg/dL) 192 H Hemoglobin A1c Total Bilirubin Alkaline Phosphatase Troponin I C-Reactive Protein Total Protein Albumin Procalcitonin Urine Protein Urine Blood Hyaline Casts Urine Mucus Coronavirus (PCR) 04/14/22 04/14/22 04/14/22 13:00 18:36 23:31 WBC RBC Hgb Hct MCV MCHC RDW Plt Count Neutrophils # Lymphocytes # Lymphocytes # (Manual) Metamyelocytes # (Man) Nucleated RBCs Macrocytosis D-Dimer ABG pH ABG pCO2 ABG pO2 ABG HCO3 ABG Total CO2 ABG O2 Saturation ABG Hematocrit Hemoglobin Sodium Potassium Chloride Carbon Dioxide BUN Creatinine Glucose POC Glucose (mg/dL) 165 H 165 H 160 H Hemoglobin A1c Total Bilirubin Alkaline Phosphatase Troponin I C-Reactive Protein Total Protein Albumin Procalcitonin Urine Protein Urine Blood Hyaline Casts Urine Mucus Coronavirus (PCR) 04/15/22 04/15/22 04/15/22 05:43 05:53 08:50 WBC 10.7 H RBC 2.68 L Hgb 8.2 L Hct 28.2 L MCV 105.2 H MCHC 29.2 L RDW 19.9 H Plt Count Neutrophils # 10.1 H Lymphocytes # 0.2 L Lymphocytes # (Manual) Metamyelocytes # (Man) Nucleated RBCs Macrocytosis Marked A D-Dimer ABG pH ABG pCO2 88 H* ABG pO2 ABG HCO3 57 H* ABG Total CO2 60 H ABG O2 Saturation 97.7 H ABG Hematocrit 27 L Hemoglobin 8.9 L Sodium Potassium Chloride Carbon Dioxide BUN Creatinine Glucose POC Glucose (mg/dL) 195 H Hemoglobin A1c Total Bilirubin Alkaline Phosphatase Troponin I C-Reactive Protein Total Protein Albumin Procalcitonin Urine Protein Urine Blood Hyaline Casts Urine Mucus Coronavirus (PCR) 04/15/22 04/15/22 08:50 11:24 WBC RBC Hgb Hct MCV MCHC RDW Plt Count Neutrophils # Lymphocytes # Lymphocytes # (Manual) Metamyelocytes # (Man) Nucleated RBCs Macrocytosis D-Dimer ABG pH ABG pCO2 ABG pO2 ABG HCO3 ABG Total CO2 ABG O2 Saturation ABG Hematocrit Hemoglobin Sodium 150 H Potassium Chloride 95 L Carbon Dioxide 50 H* BUN 65 H Creatinine 0.61 L Glucose 250 H POC Glucose (mg/dL) 274 H Hemoglobin A1c Total Bilirubin Alkaline Phosphatase 197 H Troponin I C-Reactive Protein Total Protein 4.9 L Albumin 2.3 L Procalcitonin Urine Protein Urine Blood Hyaline Casts Urine Mucus Coronavirus (PCR) Assessment and Plan Assessment: Possible acute to subacute ischemic stroke over bilateral parietal on CT head Encephalopathy due to multifactorial: Septic encephalopathy due to pneumonia/COVID-19, Serratia and Haemophilus. Also component of metabolic/electrolyte abnormality with hypernatremia and medication effect (Dilaudid). Acute on chronic hypoxemic and hypercapnic respiratory failure status post intu bation mechanical ventilation status post PEG and trach on 04/06/2022 COVID-19 infection confirmed on 04/10/2022 and positive again on 04/13/2022 COPD Hypernatremia and is trending up (currently 150). Possibly hypernatremia as seems due to dehydration Cardiomyopathy with ejection fraction of 25-30% on recent 2Decho History of non-small cell lung cancer with a left hilar mass diagnosed in December 2021 the patient was given systemic chemotherapy Plan: I ordered CT angiography of the head and neck. Recommend transesophageal echocardiogram to rule out vegetation/thrombus since the patient has by possible bilateral stroke. We'll get a repeat CT of the head for tomorrow for comparison. Cannot obtain MRI since the patient is on a ventilator. Patient is on aspirin 81 mg and I will not modify until after result of KHANH. Continue Lipitor 10 mg daily at bedtime for now. Every 3 hour neuro checks Placed on cardiac monitoring PT OT and LINEWORKER are already consulted Please avoid any further Dilaudid or any sedatives that will effect neurological examination. We'll defer the rest of medical management to the primary ICU team For DVT prophylaxis patient is on subcu heparin 5000 units every 12 hours The patient condition is critical. His prognosis appears poor. The plan is discussed with the patient's nurse. Thank you for the Consultation. Darrius Fisher M.D. Neuro-Hospitalist Time with Patient: Greater than 30
--- NOTE | 2022-04-15 15:20 | CT ---
EXAMINATION TYPE: CT angio head neck CT DLP: 1188 mGycm, Automated exposure control for dose reduction was used. DATE OF EXAM: 04/15/2022 3:04 PM COMPARISON: CT head 04/15/2022, MRI brain 01/15/2022. CLINICAL INDICATION:Male, 71 years old with history of stroke; TECHNIQUE: Axially acquired helical CT angiogram of the head and neck was obtained with contrast util izing 65 cc of [id number]-370 administered intravenously. Axial images are supplemented with 3D reconstru ctions which were post-processed at an independent workstation. NASCET criteria used. FINDINGS: CTA HEAD: No evidence of acute intracranial hemorrhage, mass effect, or midline shift. The ventricles, sulci, a nd cisterns are unremarkable. The visualized portions of the internal carotid arteries, middle cerebral arteries, anterior cerebral arteries, and posterior cerebral arteries are patent. The basilar and vertebral arteries are patent. Vertebral arteries are codominant. CTA NECK: Right Carotid System: The common carotid artery and external carotid artery are patent. Minimal atherosclerotic calcificati on of the carotid bulb. The carotid bifurcation demonstrates no evidence of hemodynamically significa nt stenosis. Medial deviation of the internal carotid artery. The remaining portions of the internal carotid artery demonstrate normal size without significant narrowing. Left Carotid System: The common carotid artery and external carotid artery are patent. Minimal atherosclerotic calcificati on of the carotid bulb. The carotid bifurcation demonstrates no evidence of hemodynamically significa nt stenosis. Medial deviation of the internal carotid artery. The remaining portions of the internal carotid artery demonstrate normal size without significant narrowing. Vertebral arteries are patent without evidence hemodynamically significant stenosis. There is a three-vessel aortic arch. The origins of the great vessels are patent. No evidence of hemo dynamically significant stenosis. Severe centrilobular emphysematous changes within the visualized lungs. Patchy consolidation within t he left upper lobe. Tracheostomy cannula demonstrated. Partial is elevation of left PICC line. Bilate ral mastoid effusions. Visualized paranasal sinuses are clear. Bilateral ocular lenses are surgically absent. Redemonstration of subtle regions of low attenuation in the bilateral parietal lobes. IMPRESSION: 1. No evidence of dissection of the cervical internal carotid arteries or vertebral arteries or any e vidence of significant stenosis at the carotid bifurcations. 2. No evidence of high-grade stenosis or intracranial aneurysm. 3. Redemonstration of indeterminate low attenuation in the superior right parietal and left posterior parietal lobes. Further evaluation with MRI is recommended. 4. Severe centrilobular emphysematous changes with patchy consolidation within the left upper lobe wh ich may represent infectious/inflammatory process.
[2022-04-15 18:37] LABS: Glucose,Whole Blood 259 mg/dL (70-110)
[2022-04-15 19:44] LABS: Chol/HDL Ratio 5.25 Ratio; LDL Cholesterol,Calculated 107.3 mg/dL (0.0-131.0)
[2022-04-15] MEDS: ATORVASTATIN 10 MG TAB PO SCH (21:27)
[2022-04-15] MEDS: LATANOPROST 0.005% OPHTH DROPS 2.5 ML BTL BOTH EYES SCH (21:28)
[2022-04-15 23:30] LABS: Glucose,Whole Blood 272 mg/dL (70-110)
[2022-04-16] MEDS: ALBUTEROL HFA INHALER INHALATION SCH ×7 (00:55→23:16)
[2022-04-16 06:04] LABS: Glucose,Whole Blood 269 mg/dL (70-110)
[2022-04-16] MEDS: NOREPINEPHRINE 4 MG in SODIUM CHLORIDE 0.9% 250 ML IV SCH ×2 (06:05→14:03)
[2022-04-16 06:06] LABS: Allen Test Performed? Yes
[2022-04-16 06:07] LABS: ABG Glucose Whole Blood 263 mg/dL (75-99); ABG Hematocrit 26 % (34.0-46.0); ABG Ionized Calcium 5.3 mg/dL (4.5-5.3); ABG Lactic Acid Whole Blood 0.6 mmol/L (0.5-1.6); ABG Oxygen Saturation 97.1 % (94-97); ABG PH 7.41 (7.35-7.45); ABG PO2 86 mmHg (83-108); ABG Sodium Whole Blood 150 mmol/L (135-146); ABG TCO2 51 mmol/L (19-24)
[2022-04-16 06:12] LABS: ABG HCO3 48 mmol/L (21-25); ABG PCO2 76 mmHg (35-45)
[2022-04-16] MEDS: INSULIN ASPART (NovoLOG) 100 UNIT/ML VIAL SQ SCH ×8 (06:12→23:38)
[2022-04-16] MEDS: methylPREDNISolone SOD SUCCI 125 MG/2 ML VIAL IV SCH ×4 (06:12→23:39)
[2022-04-16] MEDS: CLEVIDIPINE BUTYRATE 25 MG in EMPTY BAG 1 BAG IV SCH ×2 (07:05→21:00)
[2022-04-16 07:52] LABS: Anisocytosis Slight; Hypochromasia Marked; MCH 30.1 pg (25.0-35.0); MCHC 28.9 g/dL (31.0-37.0); MCV 104.1 fL (80.0-100.0); Macrocytosis Marked; Mean Platelet Volume 8.2; Platelet Count 451 k/uL (150-450); RBC 2.98 m/uL (4.30-5.90); RDW 19.7 % (11.5-15.5); WBC 17.3 k/uL (3.8-10.6)
[2022-04-16] MEDS: SYMBICORT 160-4.5 MCG INHALER INHALATION SCH ×2 (07:57→19:38)
[2022-04-16] MEDS: HEPARIN SODIUM,PORCINE/PF 5,000 UNIT/0.5 ML SYRINGE SQ SCH (08:00)
[2022-04-16] MEDS: PANTOPRAZOLE 40 MG/10 ML VIAL IVP SCH (08:00)
[2022-04-16] MEDS: ASPIRIN 81 MG PO SCH (08:01)
[2022-04-16] MEDS: CHLORHEXIDINE GLUCONATE 15 ML CUP MUCOUS MEM SCH ×2 (08:01→20:58)
[2022-04-16] MEDS: QUEtiapine 50 MG TAB PO SCH ×3 (08:01→20:58)
[2022-04-16] MEDS: amLODIPine 10 MG TAB PO SCH (08:02)
[2022-04-16] MEDS: CHOLECALCIFEROL 25 MCG (1000 IU) TABLET PO SCH (08:02)
[2022-04-16] MEDS: GABAPENTIN 300 MG CAP PO SCH ×3 (08:02→20:58)
[2022-04-16] MEDS: DEXTROSE 5% IN WATER 1,000 ML IV SCH ×2 (08:02→18:19)
[2022-04-16] MEDS: cloNIDine HCL 0.2 MG TAB PO SCH (08:03)
[2022-04-16 08:27] LABS: African American GFR (CKD) >90 (>60 ml/min/1.73 sqM); Blood Urea Nitrogen 52 mg/dL (9-20); Calcium 9.4 mg/dL (8.4-10.2); Chloride 96 mmol/L (98-107); Glucose 272 mg/dL (74-99); Non-African American GFR(CKD) 90 (>60 ml/min/1.73 sqM); Sodium 148 mmol/L (137-145)
[2022-04-16 08:36] LABS: Anion Gap 5 mmol/L
[2022-04-16 08:41] LABS: Carbon Dioxide 47 mmol/L (22-30)
--- NOTE | 2022-04-16 09:22 | P.PN ---
Subjective Progress Note Date: 04/16/22 the patient is a 71-year-old male who is currently admitted to the hospital with acute hypoxic respiratory failure. He was subsequently diagnosed with bilateral pneumonia, secondary to Serratia and Haemophilus. He was also found to be COVID-19 positive. Initial cardiac consult was for elevated troponins, which was secondary to type II myocardial injury from hypoxic respiratory failure. The patient has remained on the ventilator and subsequently underwent tracheostomy. The patient had become nonresponsive despite sedation holiday, therefore he underwent computed tomography scan of the brain which showed possible superior right parietal and left posterior parietal lobe CVA. Cardiology was reconsulted for KHANH, as recommended by neurology. The patient's blood cultures are currently negative for infectious etiology. Exam limited due to COVID-19 pandemic. Extensive chart review. 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 Objective - Vital Signs Vital signs: Vital Signs Temp 98.6 F 04/16/22 08:00 Pulse 86 04/16/22 08:00 Resp 42 H 04/16/22 08:00 BP 171/74 04/16/22 08:00 Pulse Ox 92 L 04/16/22 08:00 FiO2 50 04/16/22 08:00 Intake & Output 04/15/22 04/16/22 04/16/22 18:59 06:59 18:59 Intake Total 1009 1483.000 206 Output Total 1850 1630 250 Balance -841 -147.000 -44 Weight 86.2 kg 86.7 kg Intake: IV 159 1133 206 Dextrose 5% in Water 1, 1100 200 000 ml @ 100 mls/hr IV . Q10H [facility] Rx#:[id number] Lactated ringers 120 pressure bag 39 33 6 Intake, IV Titration 850 50.000 Amount Clevidipine Butyrate 25 150 50.000 mg In Empty Bag 1 bag @ 1 MG/HR 2 mls/hr IV .Q24H [facility] Rx#:[id number] Dextrose 5% in Water 1, 700 000 ml @ 100 mls/hr IV . Q10H [facility] Rx#:[id number] Tube Feeding 240 Other 60 Output: Urine 1850 1630 250 Other: Voiding Method Indwelling Catheter Indwelling Catheter Indwelling Catheter ABP, PAP, CO, CI - Last Documented Arterial Blood Pressure 183/64 - Labs CBC & Chem 7: 04/16/22 07:30 04/16/22 07:30 Labs: Abnormal Lab Results - Last 24 Hours (Table) 04/15/22 04/15/22 04/15/22 Range/Units 08:50 08:50 08:50 WBC 10.7 H (3.8-10.6) k/uL RBC 2.68 L (4.30-5.90) m/uL Hgb 8.2 L (13.0-17.5) gm/dL Hct 28.2 L (39.0-53.0) % MCV 105.2 H (80.0-100.0) fL MCHC 29.2 L (31.0-37.0) g/dL RDW 19.9 H (11.5-15.5) % Plt Count (150-450) k/uL Neutrophils # 10.1 H (1.3-7.7) k/uL Lymphocytes # 0.2 L (1.0-4.8) k/uL Macrocytosis Marked A ABG pCO2 (35-45) mmHg ABG HCO3 (21-25) mmol/L ABG Total CO2 (19-24) mmol/L ABG O2 Saturation (94-97) % ABG Hematocrit (34.0-46.0) % ABG Sodium (135-146) mmol/L ABG Glucose (75-99) mg/dL Hemoglobin (13.0-17.5) gm/dL Sodium 150 H (137-145) mmol/L Chloride 95 L (98-107) mmol/L Carbon Dioxide 50 H* (22-30) mmol/L BUN 65 H (9-20) mg/dL Creatinine 0.61 L (0.66-1.25) mg/dL Glucose 250 H (74-99) mg/dL POC Glucose (mg/dL) (70-110) mg/dL Alkaline Phosphatase 197 H (38-126) U/L Total Protein 4.9 L (6.3-8.2) g/dL Albumin 2.3 L (3.5-5.0) g/dL Triglycerides 196.00 H (0.00-149.00) mg/dL HDL Cholesterol 34.50 L (40.00-60.00) mg/dL Arterial Blood Glucose (75-99) mg/dL 04/15/22 04/15/22 04/15/22 Range/Units 11:24 18:35 23:27 WBC (3.8-10.6) k/uL RBC (4.30-5.90) m/uL Hgb (13.0-17.5) gm/dL Hct (39.0-53.0) % MCV (80.0-100.0) fL MCHC (31.0-37.0) g/dL RDW (11.5-15.5) % Plt Count (150-450) k/uL Neutrophils # (1.3-7.7) k/uL Lymphocytes # (1.0-4.8) k/uL Macrocytosis ABG pCO2 (35-45) mmHg ABG HCO3 (21-25) mmol/L ABG Total CO2 (19-24) mmol/L ABG O2 Saturation (94-97) % ABG Hematocrit (34.0-46.0) % ABG Sodium (135-146) mmol/L ABG Glucose (75-99) mg/dL Hemoglobin (13.0-17.5) gm/dL Sodium (137-145) mmol/L Chloride (98-107) mmol/L Carbon Dioxide (22-30) mmol/L BUN (9-20) mg/dL Creatinine (0.66-1.25) mg/dL Glucose (74-99) mg/dL POC Glucose (mg/dL) 274 H 259 H 272 H (70-110) mg/dL Alkaline Phosphatase (38-126) U/L Total Protein (6.3-8.2) g/dL Albumin (3.5-5.0) g/dL Triglycerides (0.00-149.00) mg/dL HDL Cholesterol (40.00-60.00) mg/dL Arterial Blood Glucose (75-99) mg/dL 04/16/22 04/16/22 04/16/22 Range/Units 06:03 06:05 07:30 WBC 17.3 H (3.8-10.6) k/uL RBC 2.98 L (4.30-5.90) m/uL Hgb 9.0 L (13.0-17.5) gm/dL Hct 31.0 L (39.0-53.0) % MCV 104.1 H (80.0-100.0) fL MCHC 28.9 L (31.0-37.0) g/dL RDW 19.7 H (11.5-15.5) % Plt Count 451 H (150-450) k/uL Neutrophils # (1.3-7.7) k/uL Lymphocytes # (1.0-4.8) k/uL Macrocytosis Marked A ABG pCO2 76 H* (35-45) mmHg ABG HCO3 48 H* (21-25) mmol/L ABG Total CO2 51 H (19-24) mmol/L ABG O2 Saturation 97.1 H (94-97) % ABG Hematocrit 26 L (34.0-46.0) % ABG Sodium 150 H (135-146) mmol/L ABG Glucose 263 H (75-99) mg/dL Hemoglobin 8.5 L (13.0-17.5) gm/dL Sodium (137-145) mmol/L Chloride (98-107) mmol/L Carbon Dioxide (22-30) mmol/L BUN (9-20) mg/dL Creatinine (0.66-1.25) mg/dL Glucose (74-99) mg/dL POC Glucose (mg/dL) 269 H (70-110) mg/dL Alkaline Phosphatase (38-126) U/L Total Protein (6.3-8.2) g/dL Albumin (3.5-5.0) g/dL Triglycerides (0.00-149.00) mg/dL HDL Cholesterol (40.00-60.00) mg/dL Arterial Blood Glucose 263 H (75-99) mg/dL 04/16/22 Range/Units 07:30 WBC (3.8-10.6) k/uL RBC (4.30-5.90) m/uL Hgb (13.0-17.5) gm/dL Hct (39.0-53.0) % MCV (80.0-100.0) fL MCHC (31.0-37.0) g/dL RDW (11.5-15.5) % Plt Count (150-450) k/uL Neutrophils # (1.3-7.7) k/uL Lymphocytes # (1.0-4.8) k/uL Macrocytosis ABG pCO2 (35-45) mmHg ABG HCO3 (21-25) mmol/L ABG Total CO2 (19-24) mmol/L ABG O2 Saturation (94-97) % ABG Hematocrit (34.0-46.0) % ABG Sodium (135-146) mmol/L ABG Glucose (75-99) mg/dL Hemoglobin (13.0-17.5) gm/dL Sodium 148 H (137-145) mmol/L Chloride 96 L (98-107) mmol/L Carbon Dioxide 47 H* (22-30) mmol/L BUN 52 H (9-20) mg/dL Creatinine (0.66-1.25) mg/dL Glucose 272 H (74-99) mg/dL POC Glucose (mg/dL) (70-110) mg/dL Alkaline Phosphatase (38-126) U/L Total Protein (6.3-8.2) g/dL Albumin (3.5-5.0) g/dL Triglycerides (0.00-149.00) mg/dL HDL Cholesterol (40.00-60.00) mg/dL Arterial Blood Glucose (75-99) mg/dL Microbiology - Last 24 Hours (Table) 04/13/22 10:30 Gram Stain - Final Sputum Sputum Culture - Final Serratia marcescens
--- NOTE | 2022-04-16 10:20 | CT ---
EXAMINATION TYPE: CT brain wo con DATE OF EXAM: 04/16/2022 COMPARISON: 04/15/2022 HISTORY: Stroke CT DLP: 1074.4 mGycm Automated exposure control for dose reduction was used. FINDINGS: There is orbits are symmetric. Moderate generalized degenerative change with nonspecific low attenuat ion white matter most typical remote ischemic change. Within the visualized portions of the non artif actual brain parenchyma no obvious acute hemorrhage or mass effect. No midline shift. Indeterminate l ow attenuation in the right superior parietal and posterior left parietal lobes could be on the basis of recent ischemia. Sella turcica is normal. Craniocervical junction maintained. IMPRESSION: 1. There remains intermediate low-attenuation in the right parietal and left parietal lobes which are suspicious for early or acute ischemia. No definite acute hemorrhage. Findings similar to prior exam . 2. DEGENERATIVE CHANGES AND NONSPECIFIC low attenuation in the white matter most typical of remote is chemia.
[2022-04-16] MEDS: CEFEPIME 2 GM in SODIUM CHLORIDE 0.9% 100 ML IVPB SCH ×2 (11:23→18:19)
[2022-04-16] MEDS: INSULIN DETEMIR (LEVEMIR) 100 UNIT/ML SYR SQ SCH (11:23)
[2022-04-16 11:35] LABS: Glucose,Whole Blood 274 mg/dL (70-110)
--- NOTE | 2022-04-16 13:24 | P.PN ---
Subjective Progress Note Date: 04/16/22 On today's evaluation of a 04/12, the patient is being seen for a follow- up. This patient has advanced COPD with a baseline FEV1 of 34% of predicted and currently is on a mechanical ventilator. He was intubated on 02/28/2022 and he was given a tracheostomy tube and a PEG tube on 03/06/2022. The patient has a Bivona tracheostomy tube #7. The patient is currently off sedation. He is receiving Dilaudid 1 mg every 2-3 hours when necessary basis in addition to Seroquel 50 mg by mouth 3 times a day. He has been taken off propofol for now. He is arousable and follows some simple commands. He is still having labored breathing. This morning, he was tachypneic and he was at times double stacking his breath. He was on a VC plus mode of mechanical ventilation at the rate of 20 with a tidal volume of 450 with an FiO2 of 65% with a PEEP of 5. The peak airway pressure is elevated at 42. The static pressure is 24. The patient remains bronchospastic and wheezy. Respiratory secretions are still active and previous cultures have shown a combination of Serratia and Haemophilus influenza and this is cultures based on the one done on 03/24/2022. The blood gases from today shows a pH of 7.31 with a pCO2 of 88 and pO2 of 71. The patient is afebrile. The white cell count is at 4.4 with a hemoglobin of 8 and a platelet count of 391. Sodium is at 142 with a potassium level of 5.3 chloride is 96 bicarb is 41 with a mean of 46 and a creatinine of 0.9. The fluid balance is positive for on 60 mL over the past 24 hours. The patient is receiving vitals H P at the rate of 63 mL an hour. No other significant events overnight. His blood pressure remains elevated and the patient remains on Cleviprex running at 20 mg an hour for blood pressure control. 04/13/2022, patient is being seen for a follow-up. The patient remains on a mechanical ventilator. He is quite tachypneic and the patient is asynchronous the mechanical ventilator and this morning is having excess amount of leak on the tracheostomy tube. Based on that, I personally tube another centimeter and with repositioning, the leaks improved and the patient was switched to a pressure control mode of mechanical ventilation. Earlier to that, the patient was an assist-control mode of mechanical ventilation, volume cycle and the patient was on a tidal volume of 300 with a rate of seen and FiO2 of 70% with a fecal 5. Morning blood gases showed a pH of 7.08 with a pCO2 of 120 and pO2 of 73. Based on that, the ventilator setting was changed to a pressure control mode mechanical ventilation. The chest x-ray showing diffuse bilateral pulmonary infiltrates with worsening in the left perihilar pulmonary infiltrate in the left lower lobe pulmonary infiltrate and the patient has multifocal airspace disease. The left hilar mass was again demonstrated. There is no evidence of any pneumothorax. Tracheostomy tube is in a good location the patient had background COPD. Hemodynamically, the patient's blood pressure is under better control and the patient is currently off Cleviprex. The patient is currently on a combination of Norvasc and clonidine which is controlled his blood pressure more effectively. He is receiving enteral feeding for nutritional support and his on vital 83 at the rate of 30 mL an hour. In terms of sedation, the patient is receiving propofol. He is on a combination of Seroquel, Dilaudid and Ativan for now all of them are being given [id number]. He withdraws only to deep painful stimulation. Does not follow any commands.. The has been on bronchodilators and is also on IV Solu Medrol dose of 60 mg every 6 hours. Extensively bronchospastic and weak. The white cell count of 13.7 and hemoglobin at 8.6 and a platelet count of 423. Sodium is 146 with a potassium level of 6 and elevation of the potassium level is probably related to the respiratory acidosis. Serum bicarbonate 47.. With a BUN of 58 and a creatinine of 0.7. 04/14/2022, patient is being seen for a follow-up. This morning, the patient is adequately sedated. He grimaces to painful stimulation. Receiving a combination of Dilaudid and Ativan. He remains on a pressure control mode of mechanical ventilation. INR is still having leaks around the tracheostomy tube. More air was placed in the tracheostomy tube balloon and this eliminated air leak. He is currently on a pressure control mode and he is at a rate of 22, pressure control of 25 cm of water with a FiO2 of 70% and a PEEP of 5. Blood gases from today shows a pH of 7.25 with a pCO2 of 115 and a few to 109. Note that after eliminating the air leak, repeat blood gases was done and the patient was found to have a pH of 7.34 with a pCO2 of 11 and pO2 of 78. The patient is still bronchospastic and wheezy at this point in time. From today repeat chest x-ray showed COPD and patchy bilateral pulmonary infiltrates with a left hilar. The patient is ventilator dependent. Atelectatic discussion with the family yesterday and wanted to proceed with ongoing treatment with understanding that the patient's aunts of coming off the mechanical ventilator extremely low on 4. Hemodynamically stable and the patient is still receiving enteral feeding for nutritional support. On his blood work, potassium level was at 5.9 and the patient was given 2 doses of sodium bicarb and repeat potassium level is to be obtained. Meanwhile, the white cell count of 10.7 with a hemoglobin of 8.8 and a platelet count of 430. The patient has sodium level of 48 with a potassium level of 5.9 and a serum bicarbonate was 48. Repeat potassium came down to 5.4. No other significant events. The patient continued to receive enteral feeding for nutritional support and the patient is receiving vital HP. No abdominal distention. No nausea or vomiting. No other significant events overnight. 04/15/2022, the patient remains on a mechanical ventilator. Neurologically, the patient remains quite obtunded and is not following any commands. He grimaces to painful stimulation. He was being given a combination of Dilaudid and Ativan. He does not follow any commands. His breathing is labored even while on the mechanical ventilator on a pressure control mode. He tries to triggered event with chest wall movements and he is unable to do so. He is breathing effort remains quite weak and is probably along the lines of his advanced end- stage lung disease. Based on his underlying mentation which is still impaired, I made recommendations to stop all sedations and proceed with a CAT scan of the brain. He remains on a pressure control mode of mechanical ventilation at the rate of 22 with a pressure control of 25 and FiO2 of 70% and PEEP of 5 on the morning blood gases was favorable with a pH of 7.42 and a pO2 of 88 and pO2 of 85 and this was on FiO2 of 60%. His blood work electrolytes from today show a sodium level of 150 with a INR of 65 and a creatinine of 0.6. Potassium level is at 5 and a serum bicarbonate of 50. The white cell count 10.7 with hemoglobin 8.2 and the chest x-ray from today shows a left hilar mass, COPD, improved aeration suggestive of resolving infiltrates. No respiratory secretions. No leak from the tracheostomy tube. The patient continued to receive enteral feeding for nutritional support and he is able to tolerate a diet without any major difficulties. No regurgitation. No aspiration. No abdominal distention. No fever or chills. He remains on IV Solu-Medrol in addition to bronchodilators. He has been diagnosed having positive COVID 19 04/16/2022, on seeing the patient for a follow-up. The patient is currently off sedation patient seems to be more interactive as the patient is opening his eyes at times spontaneously and I was told that he was able to follow some simple commands. Overall, he is extremely weak and he has been raising his eyebrows and wiggling his toes upon command. This is not a consistent response however. Due to his underlying mental status condition, I did a CAT scan of the brain and this was followed up by CT angiogram. Note that the patient was found to have some ischemic changes in the parietal areas bilaterally. Based on that, a neurologic consultation was requested and short of a PE, we decided to evaluate this patient and patient is currently on anti-correlation with Eliquis 5 mg by mouth twice a day. Suspect possible embolic stroke. Meanwhile, the patient remains on a mechanical ventilator. Today he is on on pressure control mode of mechanical ventilation with a rate of 22, pressure control of 26, FiO2 of 50% with a PEEP of 5. His chest x-ray findings are unchanged. His sputum was positive for Serratia and the patient wasn't found at 17.3. Based on that the patient will be started back on antibiotics. Insulin is at 9 with a platelet count of 451. The blood gas showed a pH of 7.41 with a pCO2 of 76 and pO2 of 86. The patient was also given D5 water regarding hyperchloremic hypernatremia. Sodium level is down to 148 and a serum bicarbonate 47 and the patient is also receiving Diamox. He is a 50 with a creatinine of 0.8 and a potassium level is at 4.0. The patient continues to receive enteral feeding for nutritional support with Nepro at the rate of 30 an hour. Urine output is adequate for now. Objective - Vital Signs Vital signs: Vital Signs Temp 98.2 F 04/16/22 12:00 Pulse 70 04/16/22 12:00 Resp 35 H 04/16/22 12:00 BP 171/74 04/16/22 10:01 Pulse Ox 94 L 04/16/22 12:00 FiO2 40 04/16/22 12:00 Intake & Output 04/15/22 04/16/22 04/16/22 18:59 06:59 18:59 Intake Total 1009 1483.000 718 Output Total 1850 1630 450 Balance -841 -147.000 268 Weight 86.2 kg 86.7 kg Intake: IV 159 1133 618 Dextrose 5% in Water 1, 1100 600 000 ml @ 100 mls/hr IV . Q10H [facility] Rx#:[id number] Lactated ringers 120 pressure bag 39 33 18 Intake, IV Titration 850 50.000 100 Amount Cefepime 2 gm In Sodium 100 Chloride 0.9% 100 ml @ 25 mls/hr IVPB Q8H [facility] Rx#: [id number] Clevidipine Butyrate 25 150 50.000 mg In Empty Bag 1 bag @ 1 MG/HR 2 mls/hr IV .Q24H [facility] Rx#:[id number] Dextrose 5% in Water 1, 700 000 ml @ 100 mls/hr IV . Q10H [facility] Rx#:[id number] Tube Feeding 240 Other 60 Output: Urine 1850 1630 450 Other: Voiding Method Indwelling Catheter Indwelling Catheter Indwelling Catheter ABP, PAP, CO, CI - Last Documented Arterial Blood Pressure 140/52 - Exam No acute distress, currently off sedation, with a midline tracheostomy tube. The patient is a Bivona tracheostomy tube in place. The patient stated the mechanical ventilator. Labored breathing at times double stacking. He has a b arrel chest typical of COPD. He is currently off sedation. The patient tries and sugars the mechanical ventilator. He has chest wall and abdominal wall breathing and he tries to breathe above the mechanical ventilator. He is unable to do so as the patient is quite weak to trigger the mechanical ventilator. Head exam was generally normal. There was no scleral icterus or corneal arcus. Mucous membranes were moist. HEENT examination is grossly unremarkable. Tracheostomy site is dry clean and intact and the patient has a Bivona tracheostomy tube in place Neck supple. Full range of motion. No adenopathy thyromegaly or neck vein distention. Cardiovascular examination reveals regular rhythm rate. S1-S2 normal. No S3 or S4. No discernible murmur noted. Heart sounds are distant. Lungs reveal scattered bilateral rhonchi. Breath sounds equal bilaterally wheezes. No crackles. Abdomen soft bowel sounds are heard. No masses or tenderness. PEG tube noted. Examination of the extremities revealed easily palpable radial, femoral and pedal pulses. There was no cyanosis, clubbing or edema. Examination of the skin revealed no evidence of significant rashes, suspicious appearing nevi or other concerning lesions. Neurologic examination ; The patient is apparently following simple commands today. He is quite obtunded and he grimaces to painful stimulation.. He is able to withdraw the patient was some additional 4 extremities. Pupils are equal and reactive to light. - Labs CBC & Chem 7: 04/16/22 07:30 04/16/22 07:30 Labs: Abnormal Lab Results - Last 24 Hours (Table) 04/15/22 04/15/22 04/15/22 Range/Units 08:50 18:35 23:27 WBC (3.8-10.6) k/uL RBC (4.30-5.90) m/uL Hgb (13.0-17.5) gm/dL Hct (39.0-53.0) % MCV (80.0-100.0) fL MCHC (31.0-37.0) g/dL RDW (11.5-15.5) % Plt Count (150-450) k/uL Macrocytosis ABG pCO2 (35-45) mmHg ABG HCO3 (21-25) mmol/L ABG Total CO2 (19-24) mmol/L ABG O2 Saturation (94-97) % ABG Hematocrit (34.0-46.0) % ABG Sodium (135-146) mmol/L ABG Glucose (75-99) mg/dL Hemoglobin (13.0-17.5) gm/dL Sodium (137-145) mmol/L Chloride (98-107) mmol/L Carbon Dioxide (22-30) mmol/L BUN (9-20) mg/dL Glucose (74-99) mg/dL POC Glucose (mg/dL) 259 H 272 H (70-110) mg/dL Triglycerides 196.00 H (0.00-149.00) mg/dL HDL Cholesterol 34.50 L (40.00-60.00) mg/dL Arterial Blood Glucose (75-99) mg/dL 04/16/22 04/16/22 04/16/22 Range/Units 06:03 06:05 07:30 WBC 17.3 H (3.8-10.6) k/uL RBC 2.98 L (4.30-5.90) m/uL Hgb 9.0 L (13.0-17.5) gm/dL Hct 31.0 L (39.0-53.0) % MCV 104.1 H (80.0-100.0) fL MCHC 28.9 L (31.0-37.0) g/dL RDW 19.7 H (11.5-15.5) % Plt Count 451 H (150-450) k/uL Macrocytosis Marked A ABG pCO2 76 H* (35-45) mmHg ABG HCO3 48 H* (21-25) mmol/L ABG Total CO2 51 H (19-24) mmol/L ABG O2 Saturation 97.1 H (94-97) % ABG Hematocrit 26 L (34.0-46.0) % ABG Sodium 150 H (135-146) mmol/L ABG Glucose 263 H (75-99) mg/dL Hemoglobin 8.5 L (13.0-17.5) gm/dL Sodium (137-145) mmol/L Chloride (98-107) mmol/L Carbon Dioxide (22-30) mmol/L BUN (9-20) mg/dL Glucose (74-99) mg/dL POC Glucose (mg/dL) 269 H (70-110) mg/dL Triglycerides (0.00-149.00) mg/dL HDL Cholesterol (40.00-60.00) mg/dL Arterial Blood Glucose 263 H (75-99) mg/dL 04/16/22 04/16/22 Range/Units 07:30 11:33 WBC (3.8-10.6) k/uL RBC (4.30-5.90) m/uL Hgb (13.0-17.5) gm/dL Hct (39.0-53.0) % MCV (80.0-100.0) fL MCHC (31.0-37.0) g/dL RDW (11.5-15.5) % Plt Count (150-450) k/uL Macrocytosis ABG pCO2 (35-45) mmHg ABG HCO3 (21-25) mmol/L ABG Total CO2 (19-24) mmol/L ABG O2 Saturation (94-97) % ABG Hematocrit (34.0-46.0) % ABG Sodium (135-146) mmol/L ABG Glucose (75-99) mg/dL Hemoglobin (13.0-17.5) gm/dL Sodium 148 H (137-145) mmol/L Chloride 96 L (98-107) mmol/L Carbon Dioxide 47 H* (22-30) mmol/L BUN 52 H (9-20) mg/dL Glucose 272 H (74-99) mg/dL POC Glucose (mg/dL) 274 H (70-110) mg/dL Triglycerides (0.00-149.00) mg/dL HDL Cholesterol (40.00-60.00) mg/dL Arterial Blood Glucose (75-99) mg/dL Microbiology - Last 24 Hours (Table) 04/13/22 10:30 Gram Stain - Final Sputum Sputum Culture - Final Serratia marcescens Assessment and Plan Plan: Acute on chronic hypoxemic and hypercapnic respiratory failure, status post intubation and mechanical ventilation on 03/31/2022, status post tracheostomy and PEG tube placement 04/06/2022, for failure to wean from mechanical ventilation. On today's evaluation, the patient remains bronchospastic and wheezy with elevated airway pressures. Blood gases showing an acute abdominal chronic hypoxic and hypercapnic respiratory failure. Chest x-ray findings are stable from yesterday the tracheostomy tube remains in a good location. There is evidence of multifocal airspace opacity with a left hilar mass consistent with lung cancer. The patient remains on a pressure control mode, the blood gases show chronic hypercapnic respiratory failure and there is significant metabolic alkalosis on the blood work. Repeat sputum sample came back positive for Serratia and the patient has ongoing leukocytosis and pulmonary infiltrates. I thought was reasonable to restart the patient antibiotics or extend his antibiotic treatment. Bilateral pneumonia and sepsis, secondary to Serratia and Haemophilus. In the most recent sputum culture from 04/13/2022 showed persistent Serratia COVID 19 infection confirmed on 04/10/2022 and positive on 04/13/2022 Non-small cell lung cancer with a left hilar mass, diagnosed in December 2021 and the patient was given systemic chemotherapy Acute exacerbation of secondary to above currently intubated on mechanical ventilator Enteral feeding for nutritional support and the patient has a PEG tube in place Previous history of respiratory failure, requiring intubation, and subsequent tracheostomy. Generalized anxiety disorder. The patient is currently on Seroquel and the patient has apparently has been taking Xanax on outpatient basis Severe/stage III/stage IV COPD, with an FEV1 that's 34%. Degenerative joint disease. Acute kidney injury, recovered Acute hyperkalemia secondary to respiratory acidosis, recovered Hyperchloremic hypernatremia, improving and the patient is currently on D5 water Bilateral cortical parietal ischemic changes, consistent with ischemic stroke, possibly embolic because of the changes being bilateral. Plan: Continue with pressure control mode of mechanical ventilation. Hold sedation Monitor mental status Discontinue the Dilaudid and Ativan for now and assess the patient's mental status The Computed Tomography Scan Brain Was Noted The CT angiogram of the brain was noted The patient was started on anticoagulation with Eliquis 5 mg by mouth twice a day Continue the patient on D5 water at the rate of 100 mL an hour and monitor the sodium level Continue Diamox 250 mg IV every 12 hours Daily blood gases Continue enteral feeding for nutritional support, currently on Nepro Started patient on IV cefepime regarding persistent infection and positive sputum culture with Serratia difficult to wean based on his advanced COPD, suspect end-stage lung disease and probably the patient may not have any successful weaning in the future. Prognosis poor. This is likely an unweanable case we'll continue to follow make further recommendations based on his progress. This evaluation was done and more than 30 minutes. This is a critically care evaluation. Long-term prognosis poor baseline above-mentioned comorbidities. Time with Patient: Greater than 30
--- NOTE | 2022-04-16 13:28 | CA ---
Transthoracic Echo Report Name: Anuj Marcum Age: 71 Gender: M : 1950 Exam Date: 04/16/2022 08:38 Exam Location: [facility] Ht (in): Wt (lb): Ordering Physician: Vijay Amador MD ([id number]) Attending/Referring Phys: Jean Marie Patricia MD [employer] Emelina Manuel, SHELLY Procedure CPT: Indications: CVA Cardiac Hx: Covid positve,copd Technical Quality: Good Contrast 1: Total Dose (mL): Contrast 2: Total Dose (mL): MEASUREMENTS (Male / Female) Normal Values 2D ECHO LV Diastolic Diameter PLAX 3.4 cm 4.2 - 5.9 / 3.9 - 5.3 cm LV Systolic Diameter PLAX 2.1 cm IVS Diastolic Thickness 1.3 cm 0.6 - 1.0 / 0.6 - 0.9 cm LVPW Diastolic Thickness 1.3 cm 0.6 - 1.0 / 0.6 - 0.9 cm LV Relative Wall Thickness 0.8 RV Internal Dim ED PLAX 2.2 cm DOPPLER TR Peak Velocity 298.5 cm/s TR Peak Gradient 35.6 mmHg Right Ventricular Systolic Press 40.6 mmHg FINDINGS Left Ventricle Mildly increased septal wall thickness. Left ventricular ejection fraction is estimated at 55-60 %. Right Ventricle Normal right ventricular size and function. Mild pulmonary hypertension. Right Atrium Left Atrium Mitral Valve Structurally normal mitral valve. No evidence of vegetation on the mitral valve. Trace mitral regurgitation. Aortic Valve Trileaflet aortic valve. No evidence of vegetation on the aortic valve. No aortic regurgitation. Tricuspid Valve Structurally normal tricuspid valve. No evidence of tricuspid valve vegetation. Trace tricuspid regurgitation. Pulmonic Valve Pericardium No pericardial effusion. Aorta CONCLUSIONS Mild LVH Left ventricular EF 55-60% Trace mitral regurgitation Trace tricuspid regurgitation RVSP 40 No pericardial effusion Previewed by: Dr. Corby Eng DO (Electronically Signed) Final Date: 16 April 2022 13:26
--- NOTE | 2022-04-16 13:30 | P.PN ---
Subjective Progress Note Date: 04/16/22 The patient is seen at bedside and per the nurse he was wiggling toes and nodding to him. He continues to be off sedation. Cardiology notified the nurse that they will not pursue with KHANH but rather will get repeat 2D echo. Objective - Vital Signs Vital signs: Vital Signs Temp 98.2 F 04/16/22 12:00 Pulse 70 04/16/22 12:00 Resp 35 H 04/16/22 12:00 BP 171/74 04/16/22 10:01 Pulse Ox 94 L 04/16/22 12:00 FiO2 40 04/16/22 12:00 Intake & Output 04/15/22 04/16/22 04/16/22 18:59 06:59 18:59 Intake Total 1009 1483.000 718 Output Total 1850 1630 450 Balance -841 -147.000 268 Weight 86.2 kg 86.7 kg Intake: IV 159 1133 618 Dextrose 5% in Water 1, 1100 600 000 ml @ 100 mls/hr IV . Q10H [facility] Rx#:[id number] Lactated ringers 120 pressure bag 39 33 18 Intake, IV Titration 850 50.000 100 Amount Cefepime 2 gm In Sodium 100 Chloride 0.9% 100 ml @ 25 mls/hr IVPB Q8H [facility] Rx#: [id number] Clevidipine Butyrate 25 150 50.000 mg In Empty Bag 1 bag @ 1 MG/HR 2 mls/hr IV .Q24H [facility] Rx#:[id number] Dextrose 5% in Water 1, 700 000 ml @ 100 mls/hr IV . Q10H [facility] Rx#:[id number] Tube Feeding 240 Other 60 Output: Urine 1850 1630 450 Other: Voiding Method Indwelling Catheter Indwelling Catheter Indwelling Catheter ABP, PAP, CO, CI - Last Documented Arterial Blood Pressure 140/52 - Exam GENERAL: The patient is lying in bed and does not appear in acute distress. LUNG: Clear to auscultation bilaterally and sounds rhonia. Not labored breathing. He has trach and on vent. NEUROLOGICAL: Limited because of his condition. Higher mental function: The patient is comatose GCS 5 (E3, VT1, M1). He would briefly open his eyes to voice. Not verbalizing or following commands. Cranial nerves: The pupils are round, equal and reactive to light. No facial weakness. He would move his head side to side upon examining him. Otherwise could not assess rest. Motor: The strength is hard to assess but to painful stimuli he would grimaces his face and move his head side to side. Otherwise no spontaneous movement. Decrease tone throughout. Cerebellum: Sensation: Could not assess light touch on pinprick but would grimace face to painful stimuli throughout. Reflexes (right/left): 0-1+ throughout. Plantars are mute bilaterally. SOME OF THE WORK-UP DURING THIS HOSPITAL VISIT CONSISTED OF: CT of the head was ordered by the ICU team since patient continued to be altered. The CT head is reported as limited by artifact particularly the medication the posterior fossa. Grossly no acute hemorrhage or mass effect. However there is intermediate low attenuation in the superior right parietal and left posterior parietal lobes suspicious for recent ischemia. Recommend follow- up MRI. Degenerative and nonspecific white matter changes most typical of remote ischemia. I personally reviewed the CT of the head and I agree with the repot. HbA1c 7.6. 2-D echo was reported as left ventricular ejection fraction of 25-30% with a global hypokinesis. Moderately dilated right ventricle. Left atrium is normal in size. CT angiography of the head and neck was reported as no evidence of dissection of the cervical internal carotid arteries or vertebral arteries or any evidence of significant stenosis at the carotid bifurcation. No evidence of high-grade stenosis or intracranial aneurysm. Redemonstration of indeterminate low attenuation in the superior right parietal and left posterior parietal lobes. Further evaluation with MRI is recommended. Severe central lobular emphysematous changes with patchy consolidation within the left upper lobe which may represent infection/inflammatory process. - Labs CBC & Chem 7: 04/16/22 07:30 04/16/22 07:30 Labs: Abnormal Lab Results - Last 24 Hours (Table) 04/15/22 04/15/22 04/15/22 Range/Units 08:50 18:35 23:27 WBC (3.8-10.6) k/uL RBC (4.30-5.90) m/uL Hgb (13.0-17.5) gm/dL Hct (39.0-53.0) % MCV (80.0-100.0) fL MCHC (31.0-37.0) g/dL RDW (11.5-15.5) % Plt Count (150-450) k/uL Macrocytosis ABG pCO2 (35-45) mmHg ABG HCO3 (21-25) mmol/L ABG Total CO2 (19-24) mmol/L ABG O2 Saturation (94-97) % ABG Hematocrit (34.0-46.0) % ABG Sodium (135-146) mmol/L ABG Glucose (75-99) mg/dL Hemoglobin (13.0-17.5) gm/dL Sodium (137-145) mmol/L Chloride (98-107) mmol/L Carbon Dioxide (22-30) mmol/L BUN (9-20) mg/dL Glucose (74-99) mg/dL POC Glucose (mg/dL) 259 H 272 H (70-110) mg/dL Triglycerides 196.00 H (0.00-149.00) mg/dL HDL Cholesterol 34.50 L (40.00-60.00) mg/dL Arterial Blood Glucose (75-99) mg/dL 04/16/22 04/16/22 04/16/22 Range/Units 06:03 06:05 07:30 WBC 17.3 H (3.8-10.6) k/uL RBC 2.98 L (4.30-5.90) m/uL Hgb 9.0 L (13.0-17.5) gm/dL Hct 31.0 L (39.0-53.0) % MCV 104.1 H (80.0-100.0) fL MCHC 28.9 L (31.0-37.0) g/dL RDW 19.7 H (11.5-15.5) % Plt Count 451 H (150-450) k/uL Macrocytosis Marked A ABG pCO2 76 H* (35-45) mmHg ABG HCO3 48 H* (21-25) mmol/L ABG Total CO2 51 H (19-24) mmol/L ABG O2 Saturation 97.1 H (94-97) % ABG Hematocrit 26 L (34.0-46.0) % ABG Sodium 150 H (135-146) mmol/L ABG Glucose 263 H (75-99) mg/dL Hemoglobin 8.5 L (13.0-17.5) gm/dL Sodium (137-145) mmol/L Chloride (98-107) mmol/L Carbon Dioxide (22-30) mmol/L BUN (9-20) mg/dL Glucose (74-99) mg/dL POC Glucose (mg/dL) 269 H (70-110) mg/dL Triglycerides (0.00-149.00) mg/dL HDL Cholesterol (40.00-60.00) mg/dL Arterial Blood Glucose 263 H (75-99) mg/dL 04/16/22 04/16/22 Range/Units 07:30 11:33 WBC (3.8-10.6) k/uL RBC (4.30-5.90) m/uL Hgb (13.0-17.5) gm/dL Hct (39.0-53.0) % MCV (80.0-100.0) fL MCHC (31.0-37.0) g/dL RDW (11.5-15.5) % Plt Count (150-450) k/uL Macrocytosis ABG pCO2 (35-45) mmHg ABG HCO3 (21-25) mmol/L ABG Total CO2 (19-24) mmol/L ABG O2 Saturation (94-97) % ABG Hematocrit (34.0-46.0) % ABG Sodium (135-146) mmol/L ABG Glucose (75-99) mg/dL Hemoglobin (13.0-17.5) gm/dL Sodium 148 H (137-145) mmol/L Chloride 96 L (98-107) mmol/L Carbon Dioxide 47 H* (22-30) mmol/L BUN 52 H (9-20) mg/dL Glucose 272 H (74-99) mg/dL POC Glucose (mg/dL) 274 H (70-110) mg/dL Triglycerides (0.00-149.00) mg/dL HDL Cholesterol (40.00-60.00) mg/dL Arterial Blood Glucose (75-99) mg/dL Microbiology - Last 24 Hours (Table) 04/13/22 10:30 Gram Stain - Final Sputum Sputum Culture - Final Serratia marcescens Assessment and Plan Assessment: Probable acute ischemic stroke over bilateral parietal on CT head. Unknown etiology. No a-fib reported so far. Encephalopathy due to multifactorial: Septic encephalopathy due to pneumonia/COVID-19, Serratia and Haemophilus. Also component of metabolic/electrolyte abnormality with hypernatremia and medication effect (Dilaudid). Acute on chronic hypoxemic and hypercapnic respiratory failure status post intubation mechanical ventilation status post PEG and trach on 04/06/2022 COVID-19 infection confirmed on 04/10/2022 and positive again on 04/13/2022 COPD Hypernatremia and is trending up (currently 150). Possibly hypernatremia as seems due to dehydration Cardiomyopathy with ejection fraction of 25-30% on recent 2Decho History of non-small cell lung cancer with a left hilar mass diagnosed in December 2021 the patient was given systemic chemotherapy Plan: Patient is on aspirin 81 mg. I spoke with ICU team and agreed on starting anticoagulation since patient has bilateral ischemic stroke (Eliquis) and once on anticoagulation no need for antiplatelets for neurological stand point. Continue Lipitor 10 mg daily at bedtime for now. Will get repeat CT head. Cannot obtain MRI since the patient is on a ventilator. Recommend KHANH. Cardiology will get repeat 2D echo. Every 3 hour neuro checks Placed on cardiac monitoring PT OT and REPROGRAPHICS TECHNICIAN are already consulted Please avoid any further Dilaudid or any sedatives that will effect neurological examination. We'll defer the rest of medical management to the primary ICU team For DVT prophylaxis patient is on subcu heparin 5000 units every 12 hours. Discontinues once Eliquis is started. The patient condition is critical. His prognosis is poor. The plan is discussed with the patient's ICU team and his nurse. Darrius Fisher M.D. Neuro-Hospitalist Time with Patient: Less than 30
[2022-04-16] MEDS: APIXABAN 5 MG TAB PO SCH ×2 (13:53→21:00)
--- NOTE | 2022-04-16 14:21 | P.PN ---
Subjective Principal diagnosis: Respiratory failure This is 71 white male with known history of COPD who is not intubated but slowly weaning. The patient is on FiO2 70% Still requiring pressors although slowly decreasing Tracheostomy is present. Left hilar mass is noted on x-ray. The patient is spacing. Multiple consultants. After long discussion with the family, they wish to continue at full complete care. Long-term prognosis is poor There has been some decreased mental status. Appreciate neurology input. Discussion with cardiology and pulmonology today. Echocardiogram to be done Objective - Vital Signs Vital signs: Vital Signs Temp 98.2 F 04/16/22 12:00 Pulse 82 04/16/22 14:00 Resp 32 H 04/16/22 14:00 BP 171/74 04/16/22 10:01 Pulse Ox 98 04/16/22 14:00 FiO2 40 04/16/22 12:00 Intake & Output 04/15/22 04/16/22 04/16/22 18:59 06:59 18:59 Intake Total 1009 1483.000 924 Output Total 1850 1630 775 Balance -841 -147.000 149 Weight 86.2 kg 86.7 kg Intake: IV 159 1133 824 Dextrose 5% in Water 1, 1100 800 000 ml @ 100 mls/hr IV . Q10H [facility] Rx#:[id number] Lactated ringers 120 pressure bag 39 33 24 Intake, IV Titration 850 50.000 100 Amount Cefepime 2 gm In Sodium 100 Chloride 0.9% 100 ml @ 25 mls/hr IVPB Q8H [facility] Rx#: [id number] Clevidipine Butyrate 25 150 50.000 mg In Empty Bag 1 bag @ 1 MG/HR 2 mls/hr IV .Q24H [facility] Rx#:[id number] Dextrose 5% in Water 1, 700 000 ml @ 100 mls/hr IV . Q10H [facility] Rx#:[id number] Tube Feeding 240 Other 60 Output: Urine 1850 1630 775 Other: Voiding Method Indwelling Catheter Indwelling Catheter Indwelling Catheter ABP, PAP, CO, CI - Last Documented Arterial Blood Pressure 147/53 - Constitutional General appearance: Present: mild distress - EENT Eyes: Absent: abnormal pupil - Neck Neck: Absent: lymphadenopathy - Respiratory Respiratory: bilateral: CTA - Cardiovascular Rhythm: regular Heart sounds: normal: S1, S2 Abnormal Heart Sounds: Absent: S3 Gallop - Gastrointestinal General gastrointestinal: Present: soft. Absent: tenderness - Psychiatric Psychiatric: Absent: A&O x's 3 - Labs CBC & Chem 7: 04/16/22 07:30 04/16/22 07:30 Labs: Abnormal Lab Results - Last 24 Hours (Table) 04/15/22 04/15/22 04/15/22 Range/Units 08:50 18:35 23:27 WBC (3.8-10.6) k/uL RBC (4.30-5.90) m/uL Hgb (13.0-17.5) gm/dL Hct (39.0-53.0) % MCV (80.0-100.0) fL MCHC (31.0-37.0) g/dL RDW (11.5-15.5) % Plt Count (150-450) k/uL Macrocytosis ABG pCO2 (35-45) mmHg ABG HCO3 (21-25) mmol/L ABG Total CO2 (19-24) mmol/L ABG O2 Saturation (94-97) % ABG Hematocrit (34.0-46.0) % ABG Sodium (135-146) mmol/L ABG Glucose (75-99) mg/dL Hemoglobin (13.0-17.5) gm/dL Sodium (137-145) mmol/L Chloride (98-107) mmol/L Carbon Dioxide (22-30) mmol/L BUN (9-20) mg/dL Glucose (74-99) mg/dL POC Glucose (mg/dL) 259 H 272 H (70-110) mg/dL Triglycerides 196.00 H (0.00-149.00) mg/dL HDL Cholesterol 34.50 L (40.00-60.00) mg/dL Arterial Blood Glucose (75-99) mg/dL 04/16/22 04/16/22 04/16/22 Range/Units 06:03 06:05 07:30 WBC 17.3 H (3.8-10.6) k/uL RBC 2.98 L (4.30-5.90) m/uL Hgb 9.0 L (13.0-17.5) gm/dL Hct 31.0 L (39.0-53.0) % MCV 104.1 H (80.0-100.0) fL MCHC 28.9 L (31.0-37.0) g/dL RDW 19.7 H (11.5-15.5) % Plt Count 451 H (150-450) k/uL Macrocytosis Marked A ABG pCO2 76 H* (35-45) mmHg ABG HCO3 48 H* (21-25) mmol/L ABG Total CO2 51 H (19-24) mmol/L ABG O2 Saturation 97.1 H (94-97) % ABG Hematocrit 26 L (34.0-46.0) % ABG Sodium 150 H (135-146) mmol/L ABG Glucose 263 H (75-99) mg/dL Hemoglobin 8.5 L (13.0-17.5) gm/dL Sodium (137-145) mmol/L Chloride (98-107) mmol/L Carbon Dioxide (22-30) mmol/L BUN (9-20) mg/dL Glucose (74-99) mg/dL POC Glucose (mg/dL) 269 H (70-110) mg/dL Triglycerides (0.00-149.00) mg/dL HDL Cholesterol (40.00-60.00) mg/dL Arterial Blood Glucose 263 H (75-99) mg/dL 04/16/22 04/16/22 Range/Units 07:30 11:33 WBC (3.8-10.6) k/uL RBC (4.30-5.90) m/uL Hgb (13.0-17.5) gm/dL Hct (39.0-53.0) % MCV (80.0-100.0) fL MCHC (31.0-37.0) g/dL RDW (11.5-15.5) % Plt Count (150-450) k/uL Macrocytosis ABG pCO2 (35-45) mmHg ABG HCO3 (21-25) mmol/L ABG Total CO2 (19-24) mmol/L ABG O2 Saturation (94-97) % ABG Hematocrit (34.0-46.0) % ABG Sodium (135-146) mmol/L ABG Glucose (75-99) mg/dL Hemoglobin (13.0-17.5) gm/dL Sodium 148 H (137-145) mmol/L Chloride 96 L (98-107) mmol/L Carbon Dioxide 47 H* (22-30) mmol/L BUN 52 H (9-20) mg/dL Glucose 272 H (74-99) mg/dL POC Glucose (mg/dL) 274 H (70-110) mg/dL Triglycerides (0.00-149.00) mg/dL HDL Cholesterol (40.00-60.00) mg/dL Arterial Blood Glucose (75-99) mg/dL Microbiology - Last 24 Hours (Table) 04/13/22 10:30 Gram Stain - Final Sputum Sputum Culture - Final Serratia marcescens Assessment and Plan (1) COPD (chronic obstructive pulmonary disease) Current Visit: Yes Status: Acute Code(s): J44.9 - CHRONIC OBSTRUCTIVE PULMONARY DISEASE, UNSPECIFIED SNOMED Code(s): 40364520 (2) Acute exacerbation of chronic obstructive pulmonary disease Current Visit: No Status: Acute Code(s): J44.1 - CHRONIC OBSTRUCTIVE PULMONARY DISEASE W (ACUTE) EXACERBATION SNOMED Code(s): 371271667 (3) Acute respiratory failure Current Visit: No Status: Acute Code(s): J96.00 - ACUTE RESPIRATORY FAILURE, UNSP W HYPOXIA OR HYPERCAPNIA SNOMED Code(s): 87034785 (4) Pneumonia Current Visit: No Status: Acute Code(s): J18.9 - PNEUMONIA, UNSPECIFIED OR GANISM SNOMED Code(s): 375782898 (5) Hilar mass Current Visit: Yes Status: Acute Code(s): R91.8 - OTHER NONSPECIFIC ABNORMAL FINDING OF LUNG FIELD SNOMED Code(s): 215793323 Plan: Worsening hypoxia requiring increased O2 over the weekend Worsening prognosis. We'll continue to follow with multiple consultants. Continue current regimen of treatment. Appreciate multiple consultants input. Check CBC and CMP in a.m.
[2022-04-16 18:25] LABS: Glucose,Whole Blood 278 mg/dL (70-110)
[2022-04-16] MEDS: HYDROmorphone 1 MG/ML 1 ML SYRINGE IVP PRN (20:08)
[2022-04-16] MEDS: cloNIDine 0.2 MG/24HR PATCH TRANSDERM SCH (20:23)
[2022-04-16] MEDS: ATORVASTATIN 10 MG TAB PO SCH (20:58)
[2022-04-16] MEDS: LATANOPROST 0.005% OPHTH DROPS 2.5 ML BTL BOTH EYES SCH (20:58)
[2022-04-16 23:37] LABS: Glucose,Whole Blood 303 mg/dL (70-110)
[2022-04-17] MEDS: HYDROmorphone 1 MG/ML 1 ML SYRINGE IVP PRN ×2 (01:07→06:54)
[2022-04-17] MEDS: CEFEPIME 2 GM in SODIUM CHLORIDE 0.9% 100 ML IVPB SCH ×3 (01:12→17:31)
[2022-04-17] MEDS: CLEVIDIPINE BUTYRATE 25 MG in EMPTY BAG 1 BAG IV SCH ×4 (01:58→18:49)
[2022-04-17] MEDS: LORazepam 1 MG/0.5 ML VIAL IV PRN ×3 (02:54→21:00)
[2022-04-17] MEDS: ALBUTEROL HFA INHALER INHALATION SCH ×6 (03:17→23:03)
[2022-04-17 04:30] LABS: Anisocytosis Slight; Basophils % (A) 0 %; Eosinophils % (A) 0 %; HCT 28.2 % (39.0-53.0); HGB 8.3 gm/dL (13.0-17.5); Hypochromasia Marked; Lymphocytes # (A) 0.2 k/uL (1.0-4.8); Lymphocytes % (A) 2 %; MCH 30.7 pg (25.0-35.0); MCHC 29.4 g/dL (31.0-37.0); MCV 104.6 fL (80.0-100.0); Macrocytosis Marked; Mean Platelet Volume 8.3; Monocytes # (A) 0.5 k/uL (0-1.0); Monocytes % (A) 3 %; Neutrophils # (A) 14.5 k/uL (1.3-7.7); Neutrophils % (A) 95 %; Platelet Count 440 k/uL (150-450); RDW 19.9 % (11.5-15.5); WBC 15.3 k/uL (3.8-10.6)
[2022-04-17 05:13] LABS: ALT 23 U/L (4-49); AST 16 U/L (17-59); African American GFR (CKD) >90 (>60 ml/min/1.73 sqM); Albumin 2.2 g/dL (3.5-5.0); Alkaline Phosphatase 140 U/L (38-126); Blood Urea Nitrogen 48 mg/dL (9-20); Calcium 9.1 mg/dL (8.4-10.2); Chloride 95 mmol/L (98-107); Glucose 262 mg/dL (74-99); Non-African American GFR(CKD) >90 (>60 ml/min/1.73 sqM); Potassium 3.7 mmol/L (3.5-5.1); Sodium 142 mmol/L (137-145); Total Bilirubin <0.1 mg/dL (0.2-1.3); Total Protein 4.7 g/dL (6.3-8.2)
[2022-04-17 05:20] LABS: Anion Gap 6 mmol/L
[2022-04-17 05:30] LABS: Carbon Dioxide 41 mmol/L (22-30)
[2022-04-17] MEDS: DEXTROSE 5% IN WATER 1,000 ML IV SCH (05:30)
[2022-04-17] MEDS ORDERED: Potassium Replacement Protocol 1 EACH MISC MISCELLANE PRN (05:34)
[2022-04-17 05:52] LABS: ABG Base Excess 18.9 mmol/L; ABG Hematocrit 25 % (34.0-46.0); ABG PH 7.35 (7.35-7.45); ABG PO2 65 mmHg (83-108); ABG TCO2 47 mmol/L (19-24); Allen Test Performed? Yes
[2022-04-17 05:54] LABS: ABG PCO2 81 mmHg (35-45)
[2022-04-17 05:55] LABS: ABG HCO3 45 mmol/L (21-25)
[2022-04-17] MEDS ORDERED: POTASSIUM BICARBONATE/CIT AC 20 MEQ TABLET.EFF NG-TUBE SCH (06:00)
[2022-04-17 06:06] LABS: Glucose,Whole Blood 295 mg/dL (70-110)
[2022-04-17] MEDS: INSULIN ASPART (NovoLOG) 100 UNIT/ML VIAL SQ SCH ×8 (06:12→23:19)
[2022-04-17] MEDS: methylPREDNISolone SOD SUCCI 125 MG/2 ML VIAL IV SCH ×4 (06:12→23:18)
[2022-04-17] MEDS: INSULIN DETEMIR (LEVEMIR) 100 UNIT/ML SYR SQ SCH (06:13)
[2022-04-17] MEDS: NOREPINEPHRINE 4 MG in SODIUM CHLORIDE 0.9% 250 ML IV SCH (06:26)
[2022-04-17] MEDS ORDERED: INSULIN DETEMIR (LEVEMIR) 100 UNIT/ML SYR SQ SCH (07:00)
[2022-04-17] MEDS: SYMBICORT 160-4.5 MCG INHALER INHALATION SCH ×2 (07:52→19:35)
[2022-04-17] MEDS: GABAPENTIN 300 MG CAP PO SCH ×3 (08:14→21:00)
[2022-04-17] MEDS: PANTOPRAZOLE 40 MG/10 ML VIAL IVP SCH (08:14)
[2022-04-17] MEDS: CHOLECALCIFEROL 25 MCG (1000 IU) TABLET PO SCH (08:14)
[2022-04-17] MEDS: APIXABAN 5 MG TAB PO SCH ×2 (08:14→20:59)
[2022-04-17] MEDS: CHLORHEXIDINE GLUCONATE 15 ML CUP MUCOUS MEM SCH ×2 (08:15→20:59)
[2022-04-17] MEDS: amLODIPine 10 MG TAB PO SCH (08:15)
[2022-04-17] MEDS: QUEtiapine 50 MG TAB PO SCH ×3 (08:16→21:00)
--- NOTE | 2022-04-17 10:02 | P.PN ---
Subjective Progress Note Date: 04/17/22 the patient is a 71-year-old male who is currently admitted to the hospital with acute hypoxic respiratory failure. He was subsequently diagnosed with bilateral pneumonia, secondary to Serratia and Haemophilus. He was also found to be COVID-19 positive. Initial cardiac consult was for elevated troponins, which was secondary to type II myocardial injury from hypoxic respiratory failure. The patient has remained on the ventilator and subsequently underwent tracheostomy. The patient had become nonresponsive despite sedation holiday, therefore he underwent computed tomography scan of the brain which showed possible superior right parietal and left posterior parietal lobe CVA. Cardiology was reconsulted for KHANH, as recommended by neurology. The patient's blood cultures are currently negative for infectious etiology. Repeat limited echocardiogram shows no evidence of vegetation with preserved ejection fraction Exam limited due to COVID-19 pandemic. Extensive chart review. LABS: WBC 15.3, hemoglobin 8.3, hematocrit 28.2, platelet 440, sodium 142, potassium 3.7, BUN 48, creatinine 0.76, AST 16, ALT 23, ALP 140 VITALS: Blood pressure 163/64, pulse 83, respiratory rate 17, SpO2 97% on 40% FiO2 FINAL ASSESSMENT AND PLAN: Acute on chronic hypoxemic and hypercapnic respiratory failure Bilateral pneumonia, secondary to Serratia and Haemophilus COVID-19 viral infection Acute CVA, superior right parietal and left posterior parietal lobe Hypertension, currently on clevidipine History of end-stage COPD PLAN: No evidence of mass or vegetation on repeat echocardiogram, therefore KHANH is not indicated No further recommendations from the cardiac standpoint I am dictating on behalf of Dr Vijay Amador's history/physical and assessment/plan. Objective - Vital Signs Vital signs: Vital Signs Temp 97.5 F L 04/17/22 04:00 Pulse 83 04/17/22 07:00 Resp 17 04/17/22 07:00 BP 171/74 04/16/22 10:01 Pulse Ox 97 04/17/22 07:00 FiO2 40 04/17/22 07:46 Intake & Output 04/16/22 04/17/22 04/17/22 18:59 06:59 18:59 Intake Total 1342 1702.466 176.400 Output Total 1275 1100 100 Balance 67 602.466 76.400 Weight 87 kg Intake: IV 1236 1215 100 Dextrose 5% in Water 1, 1200 1200 100 000 ml @ 100 mls/hr IV . Q10H [facility] Rx#:[id number] pressure bag 36 15 Intake, IV Titration 106 97.466 46.400 Amount Cefepime 2 gm In Sodium 100 Chloride 0.9% 100 ml @ 25 mls/hr IVPB Q8H [facility] Rx#: [id number] Clevidipine Butyrate 25 6 97.466 46.400 mg In Empty Bag 1 bag @ 1 MG/HR 2 mls/hr IV .Q24H [facility] Rx#:[id number] Tube Feeding 300 30 Other 90 Output: Urine 1275 1100 100 Other: Voiding Method Indwelling Catheter Indwelling Catheter ABP, PAP, CO, CI - Last Documented Arterial Blood Pressure 163/64 - Labs CBC & Chem 7: 04/17/22 04:09 04/17/22 04:09 Labs: Abnormal Lab Results - Last 24 Hours (Table) 04/16/22 04/16/22 04/16/22 Range/Units 11:33 18:23 23:35 WBC (3.8-10.6) k/uL RBC (4.30-5.90) m/uL Hgb (13.0-17.5) gm/dL Hct (39.0-53.0) % MCV (80.0-100.0) fL MCHC (31.0-37.0) g/dL RDW (11.5-15.5) % Neutrophils # (1.3-7.7) k/uL Lymphocytes # (1.0-4.8) k/uL Macrocytosis ABG pCO2 (35-45) mmHg ABG pO2 (83-108) mmHg ABG HCO3 (21-25) mmol/L ABG Total CO2 (19-24) mmol/L ABG O2 Saturation (94-97) % ABG Hematocrit (34.0-46.0) % Hemoglobin (13.0-17.5) gm/dL Chloride (98-107) mmol/L Carbon Dioxide (22-30) mmol/L BUN (9-20) mg/dL Glucose (74-99) mg/dL POC Glucose (mg/dL) 274 H 278 H 303 H (70-110) mg/dL Total Bilirubin (0.2-1.3) mg/dL AST (17-59) U/L Alkaline Phosphatase (38-126) U/L Total Protein (6.3-8.2) g/dL Albumin (3.5-5.0) g/dL 04/17/22 04/17/22 04/17/22 Range/Units 04:09 04:09 05:51 WBC 15.3 H (3.8-10.6) k/uL RBC 2.70 L (4.30-5.90) m/uL Hgb 8.3 L (13.0-17.5) gm/dL Hct 28.2 L (39.0-53.0) % MCV 104.6 H (80.0-100.0) fL MCHC 29.4 L (31.0-37.0) g/dL RDW 19.9 H (11.5-15.5) % Neutrophils # 14.5 H (1.3-7.7) k/uL Lymphocytes # 0.2 L (1.0-4.8) k/uL Macrocytosis Marked A ABG pCO2 81 H* (35-45) mmHg ABG pO2 65 L (83-108) mmHg ABG HCO3 45 H* (21-25) mmol/L ABG Total CO2 47 H (19-24) mmol/L ABG O2 Saturation 93.0 L (94-97) % ABG Hematocrit 25 L (34.0-46.0) % Hemoglobin 8.1 L (13.0-17.5) gm/dL Chloride 95 L (98-107) mmol/L Carbon Dioxide 41 H* (22-30) mmol/L BUN 48 H (9-20) mg/dL Glucose 262 H (74-99) mg/dL POC Glucose (mg/dL) (70-110) mg/dL Total Bilirubin <0.1 L (0.2-1.3) mg/dL AST 16 L (17-59) U/L Alkaline Phosphatase 140 H (38-126) U/L Total Protein 4.7 L (6.3-8.2) g/dL Albumin 2.2 L (3.5-5.0) g/dL 04/17/22 Range/Units 06:05 WBC (3.8-10.6) k/uL RBC (4.30-5.90) m/uL Hgb (13.0-17.5) gm/dL Hct (39.0-53.0) % MCV (80.0-100.0) fL MCHC (31.0-37.0) g/dL RDW (11.5-15.5) % Neutrophils # (1.3-7.7) k/uL Lymphocytes # (1.0-4.8) k/uL Macrocytosis ABG pCO2 (35-45) mmHg ABG pO2 (83-108) mmHg ABG HCO3 (21-25) mmol/L ABG Total CO2 (19-24) mmol/L ABG O2 Saturation (94-97) % ABG Hematocrit (34.0-46.0) % Hemoglobin (13.0-17.5) gm/dL Chloride (98-107) mmol/L Carbon Dioxide (22-30) mmol/L BUN (9-20) mg/dL Glucose (74-99) mg/dL POC Glucose (mg/dL) 295 H (70-110) mg/dL Total Bilirubin (0.2-1.3) mg/dL AST (17-59) U/L Alkaline Phosphatase (38-126) U/L Total Protein (6.3-8.2) g/dL Albumin (3.5-5.0) g/dL
--- NOTE | 2022-04-17 11:21 | P.PN ---
Subjective Progress Note Date: 04/17/22 The patient is seen at bedside and per nurse early in the morning he followed few simple commands (he moved his few hand fingers), nodded appropriately. He was agitated as result was given Ativan 1mg once. Objective - Vital Signs Vital signs: Vital Signs Temp 97.6 F 04/17/22 08:00 Pulse 76 04/17/22 10:15 Resp 30 H 04/17/22 10:15 BP 171/74 04/16/22 10:01 Pulse Ox 91 L 04/17/22 10:15 FiO2 40 04/17/22 07:46 Intake & Output 04/16/22 04/17/22 04/17/22 18:59 06:59 18:59 Intake Total 1342 1702.466 462.400 Output Total 1275 1100 275 Balance 67 602.466 187.400 Weight 87 kg Intake: IV 1236 1215 326 Dextrose 5% in Water 1, 1200 1200 300 000 ml @ 100 mls/hr IV . Q10H NES[facility] Rx#:[id number] Lactated ringers 20 pressure bag 36 15 6 Intake, IV Titration 106 97.466 46.400 Amount Cefepime 2 gm In Sodium 100 Chloride 0.9% 100 ml @ 25 mls/hr IVPB Q8H NESHA Rx#: [id number] Clevidipine Butyrate 25 6 97.466 46.400 mg In Empty Bag 1 bag @ 1 MG/HR 2 mls/hr IV .Q24H NESHA Rx#:[id number] Tube Feeding 300 90 Other 90 Output: Urine 1275 1100 275 Other: Voiding Method Indwelling Catheter Indwelling Catheter ABP, PAP, CO, CI - Last Documented Arterial Blood Pressure 113/49 - Exam GENERAL: The patient is lying in bed and does not appear in acute distress. LUNG: Clear to auscultation bilaterally and sounds rhonia. Not labored rafael thing. He has trach and on vent. NEUROLOGICAL: Limited because of his condition and was given Ativan 1mg 2hours prior.. Higher mental function: The patient is comatose GCS 5 (E3, VT1, M1). He would briefly open his eyes to voice. Not verbalizing or following commands. Cranial nerves: The pupils are round, equal and reactive to light. No facial weakness. He would move his head side to side upon examining him. Otherwise could not assess rest. Motor: The strength is hard to assess but to painful stimuli he would grimaces his face. Otherwise no spontaneous movement. Decrease tone throughout. Cerebellum: Sensation: Could not assess light touch on pinprick but would grimace face to painful stimuli throughout. Reflexes (right/left): 0-1+ throughout. Plantars are mute bilaterally. SOME OF THE WORK-UP DURING THIS HOSPITAL VISIT CONSISTED OF: CT of the head was ordered by the ICU team since patient continued to be altered. The CT head is reported as limited by artifact particularly the medication the posterior fossa. Grossly no acute hemorrhage or mass effect. However there is intermediate low attenuation in the superior right parietal and left posterior parietal lobes suspicious for recent ischemia. Recommend follow- up MRI. Degenerative and nonspecific white matter changes most typical of remote ischemia. I personally reviewed the CT of the head and I agree with the repot. HbA1c 7.6. 2-D echo was reported as left ventricular ejection fraction of 25-30% with a global hypokinesis. Moderately dilated right ventricle. Left atrium is normal in size. CT angiography of the head and neck was reported as no evidence of dissection of the cervical internal carotid arteries or vertebral arteries or any evidence of significant stenosis at the carotid bifurcation. No evidence of high-grade stenosis or intracranial aneurysm. Redemonstration of indeterminate low attenuation in the superior right parietal and left posterior parietal lobes. Further evaluation with MRI is recommended. Severe central lobular emphysematous changes with patchy consolidation within the left upper lobe which may represent infection/inflammatory process. Repeat CT of the head on 04/16/2022 his report as there remains intermediate low attenuation in the right parietal and left parietal lobes which are suspicious for an early or acute ischemia. No drift acute hemorrhage. Findings similar to prior exam. Degenerative changes and nonspecific low attenuation in the white matter most typical of remote ischemia. I personally reviewed to the head and I feel the hypoattenuation is over the border of bilateral frontal parietal region. Limited 2-D echo was reported as mild left ventricular hypertrophy. Left ventricle ejection fraction 55-60%. Trace mitral regurgitation and tricuspid regurgitation. The body reported it is reported as no evidence of vegetation. - Labs CBC & Chem 7: 04/17/22 04:09 04/17/22 04:09 Labs: Abnormal Lab Results - Last 24 Hours (Table) 04/16/22 04/16/22 04/16/22 Range/Units 11:33 18:23 23:35 WBC (3.8-10.6) k/uL RBC (4.30-5.90) m/uL Hgb (13.0-17.5) gm/dL Hct (39.0-53.0) % MCV (80.0-100.0) fL MCHC (31.0-37.0) g/dL RDW (11.5-15.5) % Neutrophils # (1.3-7.7) k/uL Lymphocytes # (1.0-4.8) k/uL Macrocytosis ABG pCO2 (35-45) mmHg ABG pO2 (83-108) mmHg ABG HCO3 (21-25) mmol/L ABG Total CO2 (19-24) mmol/L ABG O2 Saturation (94-97) % ABG Hematocrit (34.0-46.0) % Hemoglobin (13.0-17.5) gm/dL Chloride (98-107) mmol/L Carbon Dioxide (22-30) mmol/L BUN (9-20) mg/dL Glucose (74-99) mg/dL POC Glucose (mg/dL) 274 H 278 H 303 H (70-110) mg/dL Total Bilirubin (0.2-1.3) mg/dL AST (17-59) U/L Alkaline Phosphatase (38-126) U/L Total Protein (6.3-8.2) g/dL Albumin (3.5-5.0) g/dL 04/17/22 04/17/22 04/17/22 Range/Units 04:09 04:09 05:51 WBC 15.3 H (3.8-10.6) k/uL RBC 2.70 L (4.30-5.90) m/uL Hgb 8.3 L (13.0-17.5) gm/dL Hct 28.2 L (39.0-53.0) % MCV 104.6 H (80.0-100.0) fL MCHC 29.4 L (31.0-37.0) g/dL RDW 19.9 H (11.5-15.5) % Neutrophils # 14.5 H (1.3-7.7) k/uL Lymphocytes # 0.2 L (1.0-4.8) k/uL Macrocytosis Marked A ABG pCO2 81 H* (35-45) mmHg ABG pO2 65 L (83-108) mmHg ABG HCO3 45 H* (21-25) mmol/L ABG Total CO2 47 H (19-24) mmol/L ABG O2 Saturation 93.0 L (94-97) % ABG Hematocrit 25 L (34.0-46.0) % Hemoglobin 8.1 L (13.0-17.5) gm/dL Chloride 95 L (98-107) mmol/L Carbon Dioxide 41 H* (22-30) mmol/L BUN 48 H (9-20) mg/dL Glucose 262 H (74-99) mg/dL POC Glucose (mg/dL) (70-110) mg/dL Total Bilirubin <0.1 L (0.2-1.3) mg/dL AST 16 L (17-59) U/L Alkaline Phosphatase 140 H (38-126) U/L Total Protein 4.7 L (6.3-8.2) g/dL Albumin 2.2 L (3.5-5.0) g/dL 04/17/22 Range/Units 06:05 WBC (3.8-10.6) k/uL RBC (4.30-5.90) m/uL Hgb (13.0-17.5) gm/dL Hct (39.0-53.0) % MCV (80.0-100.0) fL MCHC (31.0-37.0) g/dL RDW (11.5-15.5) % Neutrophils # (1.3-7.7) k/uL Lymphocytes # (1.0-4.8) k/uL Macrocytosis ABG pCO2 (35-45) mmHg ABG pO2 (83-108) mmHg ABG HCO3 (21-25) mmol/L ABG Total CO2 (19-24) mmol/L ABG O2 Saturation (94-97) % ABG Hematocrit (34.0-46.0) % Hemoglobin (13.0-17.5) gm/dL Chloride (98-107) mmol/L Carbon Dioxide (22-30) mmol/L BUN (9-20) mg/dL Glucose (74-99) mg/dL POC Glucose (mg/dL) 295 H (70-110) mg/dL Total Bilirubin (0.2-1.3) mg/dL AST (17-59) U/L Alkaline Phosphatase (38-126) U/L Total Protein (6.3-8.2) g/dL Albumin (3.5-5.0) g/dL Assessment and Plan Assessment: Probable acute ischemic stroke over bilateral parietal on CT head. Unknown etiology. No a-fib reported so far. Encephalopathy due to multifactorial: Septic encephalopathy due to pneumonia/COVID-19, Serratia and Haemophilus. Also component of metabolic/electrolyte abnormality with hypernatremia and medication effect (Ativan). 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 Possibly hypernatremia as seems due to dehydration Cardiomyopathy with ejection fraction of 25-30% on recent 2Decho History of non-small cell lung cancer with a left hilar mass diagnosed in December 14 the patient was given systemic chemotherapy Plan: He is on Eliquis 5mg bid (started on 04/16/2022) and sufficient from neurological perspective. Continue Lipitor 10 mg daily at bedtime for now. Will get repeat CT head tomorrow to assess for any changes. Cannot obtain MRI since the patient is on a ventilator. Cardiology team does not feel KHANH is needed since no mass or vegetation on repeat 2D echo. Every 3 hour neuro checks On cardiac monitoring PT OT and [employer] are already consulted Please avoid any further Dilaudid or any sedatives that will effect neurological examination. We'll defer the rest of medical management to the primary ICU team For DVT prophylaxis patient is on subcu heparin 5000 units every 12 hours. Discontinues once Eliquis is started. The patient condition is critical. His overall prognosis is poor (because of multiple comorbidities). The plan is discussed with the patient's ICU team and his nurse. Darrius Fisher M.D. Neuro-Hospitalist Time with Patient: Less than 30
[2022-04-17] MEDS ORDERED: INSULIN DETEMIR (LEVEMIR) 100 UNIT/ML SYR SQ ONE (11:45)
--- NOTE | 2022-04-17 12:44 | P.PN ---
Progress Note - Text Echo was reviewed. No intracardiac masses Blood cultures normal no growth Catheter tip culture negative no growth Positive sputum cultures Discussed with primary attending Dr. Dougherty Discussed with nurse practitioner No clinical indication for KHANH given the negative blood cultures and catheter tip culture and absence of atrial fibrillation No further cardiac workup indicated Dr. Dougherty is in agreement
[2022-04-17 12:59] LABS: Glucose,Whole Blood 303 mg/dL (70-110)
--- NOTE | 2022-04-17 12:59 | P.PN ---
Subjective Progress Note Date: 04/17/22 On today's evaluation of a 04/12, the patient is being seen for a follow- up. This patient has advanced COPD with a baseline FEV1 of 34% of predicted and currently is on a mechanical ventilator. He was intubated on 02/28/2022 and he was given a tracheostomy tube and a PEG tube on 03/06/2022. The patient has a Bivona tracheostomy tube #7. The patient is currently off sedation. He is receiving Dilaudid 1 mg every 2-3 hours when necessary basis in addition to Seroquel 50 mg by mouth 3 times a day. He has been taken off propofol for now. He is arousable and follows some simple commands. He is still having labored breathing. This morning, he was tachypneic and he was at times double stacking his breath. He was on a VC plus mode of mechanical ventilation at the rate of 20 with a tidal volume of 450 with an FiO2 of 65% with a PEEP of 5. The peak airway pressure is elevated at 42. The static pressure is 24. The patient remains bronchospastic and wheezy. Respiratory secretions are still active and previous cultures have shown a combination of Serratia and Haemophilus influenza and this is cultures based on the one done on 03/24/2022. The blood gases from today shows a pH of 7.31 with a pCO2 of 88 and pO2 of 71. The patient is afebrile. The white cell count is at 4.4 with a hemoglobin of 8 and a platelet count of 391. Sodium is at 142 with a potassium level of 5.3 chloride is 96 bicarb is 41 with a mean of 46 and a creatinine of 0.9. The fluid balance is positive for on 60 mL over the past 24 hours. The patient is receiving vitals H P at the rate of 63 mL an hour. No other significant events overnight. His blood pressure remains elevated and the patient remains on Cleviprex running at 20 mg an hour for blood pressure control. 04/13/2022, patient is being seen for a follow-up. The patient remains on a mechanical ventilator. He is quite tachypneic and the patient is asynchronous the mechanical ventilator and this morning is having excess amount of leak on the tracheostomy tube. Based on that, I personally tube another centimeter and with repositioning, the leaks improved and the patient was switched to a pressure control mode of mechanical ventilation. Earlier to that, the patient was an assist-control mode of mechanical ventilation, volume cycle and the patient was on a tidal volume of 300 with a rate of seen and FiO2 of 70% with a fecal 5. Morning blood gases showed a pH of 7.08 with a pCO2 of 120 and pO2 of 73. Based on that, the ventilator setting was changed to a pressure control mode mechanical ventilation. The chest x-ray showing diffuse bilateral pulmonary infiltrates with worsening in the left perihilar pulmonary infiltrate in the left lower lobe pulmonary infiltrate and the patient has multifocal airspace disease. The left hilar mass was again demonstrated. There is no evidence of any pneumothorax. Tracheostomy tube is in a good location the patient had background COPD. Hemodynamically, the patient's blood pressure is under better control and the patient is currently off Cleviprex. The patient is currently on a combination of Norvasc and clonidine which is controlled his blood pressure more effectively. He is receiving enteral feeding for nutritional support and his on vital 83 at the rate of 30 mL an hour. In terms of sedation, the patient is receiving propofol. He is on a combination of Seroquel, Dilaudid and Ativan for now all of them are being given [id number]. He withdraws only to deep painful stimulation. Does not follow any commands.. The has been on bronchodilators and is also on IV Solu Medrol dose of 60 mg every 6 hours. Extensively bronchospastic and weak. The white cell count of 13.7 and hemoglobin at 8.6 and a platelet count of 423. Sodium is 146 with a potassium level of 6 and elevation of the potassium level is probably related to the respiratory acidosis. Serum bicarbonate 47.. With a BUN of 58 and a creatinine of 0.7. 04/14/2022, patient is being seen for a follow-up. This morning, the patient is adequately sedated. He grimaces to painful stimulation. Receiving a combination of Dilaudid and Ativan. He remains on a pressure control mode of mechanical ventilation. INR is still having leaks around the tracheostomy tube. More air was placed in the tracheostomy tube balloon and this eliminated air leak. He is currently on a pressure control mode and he is at a rate of 22, pressure control of 25 cm of water with a FiO2 of 70% and a PEEP of 5. Blood gases from today shows a pH of 7.25 with a pCO2 of 115 and a few to 109. Note that after eliminating the air leak, repeat blood gases was done and the patient was found to have a pH of 7.34 with a pCO2 of 11 and pO2 of 78. The patient is still bronchospastic and wheezy at this point in time. From today repeat chest x-ray showed COPD and patchy bilateral pulmonary infiltrates with a left hilar. The patient is ventilator dependent. Atelectatic discussion with the family yesterday and wanted to proceed with ongoing treatment with understanding that the patient's aunts of coming off the mechanical ventilator extremely low on 4. Hemodynamically stable and the patient is still receiving enteral feeding for nutritional support. On his blood work, potassium level was at 5.9 and the patient was given 2 doses of sodium bicarb and repeat potassium level is to be obtained. Meanwhile, the white cell count of 10.7 with a hemoglobin of 8.8 and a platelet count of 430. The patient has sodium level of 48 with a potassium level of 5.9 and a serum bicarbonate was 48. Repeat potassium came down to 5.4. No other significant events. The patient continued to receive enteral feeding for nutritional support and the patient is receiving vital HP. No abdominal distention. No nausea or vomiting. No other significant events overnight. 04/15/2022, the patient remains on a mechanical ventilator. Neurologically, the patient remains quite obtunded and is not following any commands. He grimaces to painful stimulation. He was being given a combination of Dilaudid and Ativan. He does not follow any commands. His breathing is labored even while on the mechanical ventilator on a pressure control mode. He tries to triggered event with chest wall movements and he is unable to do so. He is breathing effort remains quite weak and is probably along the lines of his advanced end- stage lung disease. Based on his underlying mentation which is still impaired, I made recommendations to stop all sedations and proceed with a CAT scan of the brain. He remains on a pressure control mode of mechanical ventilation at the rate of 22 with a pressure control of 25 and FiO2 of 70% and PEEP of 5 on the morning blood gases was favorable with a pH of 7.42 and a pO2 of 88 and pO2 of 85 and this was on FiO2 of 60%. His blood work electrolytes from today show a sodium level of 150 with a INR of 65 and a creatinine of 0.6. Potassium level is at 5 and a serum bicarbonate of 50. The white cell count 10.7 with hemoglobin 8.2 and the chest x-ray from today shows a left hilar mass, COPD, improved aeration suggestive of resolving infiltrates. No respiratory secretions. No leak from the tracheostomy tube. The patient continued to receive enteral feeding for nutritional support and he is able to tolerate a diet without any major difficulties. No regurgitation. No aspiration. No abdominal distention. No fever or chills. He remains on IV Solu-Medrol in addition to bronchodilators. He has been diagnosed having positive COVID 19 04/16/2022, on seeing the patient for a follow-up. The patient is currently off sedation patient seems to be more interactive as the patient is opening his eyes at times spontaneously and I was told that he was able to follow some simple commands. Overall, he is extremely weak and he has been raising his eyebrows and wiggling his toes upon command. This is not a consistent response however. Due to his underlying mental status condition, I did a CAT scan of the brain and this was followed up by CT angiogram. Note that the patient was found to have some ischemic changes in the parietal areas bilaterally. Based on that, a neurologic consultation was requested and short of a PE, we decided to evaluate this patient and patient is currently on anti-correlation with Eliquis 5 mg by mouth twice a day. Suspect possible embolic stroke. Meanwhile, the patient remains on a mechanical ventilator. Today he is on on pressure control mode of mechanical ventilation with a rate of 22, pressure control of 26, FiO2 of 50% with a PEEP of 5. His chest x-ray findings are unchanged. His sputum was positive for Serratia and the patient wasn't found at 17.3. Based on that the patient will be started back on antibiotics. Insulin is at 9 with a platelet count of 451. The blood gas showed a pH of 7.41 with a pCO2 of 76 and pO2 of 86. The patient was also given D5 water regarding hyperchloremic hypernatremia. Sodium level is down to 148 and a serum bicarbonate 47 and the patient is also receiving Diamox. He is a 50 with a creatinine of 0.8 and a potassium level is at 4.0. The patient continues to receive enteral feeding for nutritional support with Nepro at the rate of 30 an hour. Urine output is adequate for now. 04/17/2022, the patient the patient is being seen for a follow-up. Mental status has become an ongoing issue as the patient becomes quite agitated and restless and anxious while off sedation. He was given Precedex and this has been used on and off during the day currently is off Precedex. However earlier this morning, he was following commands and these are essentially simple commands and the patient was getting anxious anesthetized with a mechanical ventilator. Based on that, the patient was given Ativan 1 mg IV and at the time of my evaluation the patient was doing better and he was more synchronous. He continues to have shallow breathing, he tries to make respiratory efforts above the mechanical ventilator and is unable to check that every breath. He remains on a pressure control at the rate of 22 with a pressure control of 26 cm of water and FiO2 of 40% and PEEP of 5. The chest x-ray findings are essentially unchanged repeat chest x-ray is to be done today. Meanwhile, the patient was restarted back on IV cefepime and the patient was found to have again Serratia and his sputum. The patient has a white cell count of 15.3 with a hemoglobin of 8.3. The blood gases from today shows a pH of 7.35 with a pCO2 of 81 and pO2 of 65. Serum bicarbonate is on 41 and the patient was receiving Diamox 250 mg IV every 12 hours. Overall fluid balance is +669 mL over the past 24 hours. The patient is receiving enteral feeding for nutritional support. The patient was also started on anticoagulation with Eliquis upon request of the neurologist. No fever. No diarrhea. No other significant events otherwise for now. Extremely debilitated with extremely low chances of weaning from the mechanical ventilator. Objective - Vital Signs Vital signs: Vital Signs Temp 97.6 F 04/17/22 08:00 Pulse 71 04/17/22 11:45 Resp 30 H 04/17/22 11:45 BP 171/74 04/16/22 10:01 Pulse Ox 91 L 04/17/22 11:45 FiO2 40 04/17/22 11:09 Intake & Output 04/16/22 04/17/22 04/17/22 18:59 06:59 18:59 Intake Total 1342 1702.466 605.400 Output Total 1275 1100 400 Balance 67 602.466 205.400 Weight 87 kg Intake: IV 1236 1215 439 Dextrose 5% in Water 1, 1200 1200 400 000 ml @ 100 mls/hr IV . Q10H [facility] Rx#:[id number] Lactated ringers 30 pressure bag 36 15 9 Intake, IV Titration 106 97.466 46.400 Amount Cefepime 2 gm In Sodium 100 Chloride 0.9% 100 ml @ 25 mls/hr IVPB Q8H [facility] Rx#: [id number] Clevidipine Butyrate 25 6 97.466 46.400 mg In Empty Bag 1 bag @ 1 MG/HR 2 mls/hr IV .Q24H [facility] Rx#:[id number] Tube Feeding 300 120 Other 90 Output: Urine 1275 1100 400 Other: Voiding Method Indwelling Catheter Indwelling Catheter Indwelling Catheter ABP, PAP, CO, CI - Last Documented Arterial Blood Pressure 126/44 - Exam No acute distress, currently off sedation, with a midline tracheostomy tube. The patient is a Bivona tracheostomy tube in place. The patient stated the mechanical ventilator. Labored breathing at times double stacking. He has a barrel chest typical of COPD. He is currently off sedation. The patient tries and sugars the mechanical ventilator. He has chest wall and abdominal wall br eathing and he tries to breathe above the mechanical ventilator. He is unable to do so as the patient is quite weak to trigger the mechanical ventilator. Head exam was generally normal. There was no scleral icterus or corneal arcus. Mucous membranes were moist. HEENT examination is grossly unremarkable. Tracheostomy site is dry clean and intact and the patient has a Bivona tracheostomy tube in place Neck supple. Full range of motion. No adenopathy thyromegaly or neck vein distention. Cardiovascular examination reveals regular rhythm rate. S1-S2 normal. No S3 or S4. No discernible murmur noted. Heart sounds are distant. Lungs reveal scattered bilateral rhonchi. Breath sounds equal bilaterally wheezes. No crackles. Abdomen soft bowel sounds are heard. No masses or tenderness. PEG tube noted. Examination of the extremities revealed easily palpable radial, femoral and pedal pulses. There was no cyanosis, clubbing or edema. Examination of the skin revealed no evidence of significant rashes, suspicious appearing nevi or other concerning lesions. Neurologic examination ; The patient is apparently following simple commands today. He is quite obtunded and he grimaces to painful stimulation.. He is able to withdraw the patient was some additional 4 extremities. Pupils are equal and reactive to light. - Labs CBC & Chem 7: 04/17/22 04:09 04/17/22 04:09 Labs: Abnormal Lab Results - Last 24 Hours (Table) 04/16/22 04/16/22 04/17/22 Range/Units 18:23 23:35 04:09 WBC 15.3 H (3.8-10.6) k/uL RBC 2.70 L (4.30-5.90) m/uL Hgb 8.3 L (13.0-17.5) gm/dL Hct 28.2 L (39.0-53.0) % MCV 104.6 H (80.0-100.0) fL MCHC 29.4 L (31.0-37.0) g/dL RDW 19.9 H (11.5-15.5) % Neutrophils # 14.5 H (1.3-7.7) k/uL Lymphocytes # 0.2 L (1.0-4.8) k/uL Macrocytosis Marked A ABG pCO2 (35-45) mmHg ABG pO2 (83-108) mmHg ABG HCO3 (21-25) mmol/L ABG Total CO2 (19-24) mmol/L ABG O2 Saturation (94-97) % ABG Hematocrit (34.0-46.0) % Hemoglobin (13.0-17.5) gm/dL Chloride (98-107) mmol/L Carbon Dioxide (22-30) mmol/L BUN (9-20) mg/dL Glucose (74-99) mg/dL POC Glucose (mg/dL) 278 H 303 H (70-110) mg/dL Total Bilirubin (0.2-1.3) mg/dL AST (17-59) U/L Alkaline Phosphatase (38-126) U/L Total Protein (6.3-8.2) g/dL Albumin (3.5-5.0) g/dL 04/17/22 04/17/22 04/17/22 Range/Units 04:09 05:51 06:05 WBC (3.8-10.6) k/uL RBC (4.30-5.90) m/uL Hgb (13.0-17.5) gm/dL Hct (39.0-53.0) % MCV (80.0-100.0) fL MCHC (31.0-37.0) g/dL RDW (11.5-15.5) % Neutrophils # (1.3-7.7) k/uL Lymphocytes # (1.0-4.8) k/uL Macrocytosis ABG pCO2 81 H* (35-45) mmHg ABG pO2 65 L (83-108) mmHg ABG HCO3 45 H* (21-25) mmol/L ABG Total CO2 47 H (19-24) mmol/L ABG O2 Saturation 93.0 L (94-97) % ABG Hematocrit 25 L (34.0-46.0) % Hemoglobin 8.1 L (13.0-17.5) gm/dL Chloride 95 L (98-107) mmol/L Carbon Dioxide 41 H* (22-30) mmol/L BUN 48 H (9-20) mg/dL Glucose 262 H (74-99) mg/dL POC Glucose (mg/dL) 295 H (70-110) mg/dL Total Bilirubin <0.1 L (0.2-1.3) mg/dL AST 16 L (17-59) U/L Alkaline Phosphatase 140 H (38-126) U/L Total Protein 4.7 L (6.3-8.2) g/dL Albumin 2.2 L (3.5-5.0) g/dL Assessment and Plan Plan: Acute on chronic hypoxemic and hypercapnic respiratory failure, status post intubation and mechanical ventilation on 03/31/2022, status post tracheostomy and PEG tube placement 04/06/2022, for failure to wean from mechanical v entilation. On today's evaluation, the patient remains bronchospastic and wheezy with elevated airway pressures. Blood gases showing an acute abdominal chronic hypoxic and hypercapnic respiratory failure. Chest x-ray findings are stable from yesterday the tracheostomy tube remains in a good location. There is evidence of multifocal airspace opacity with a left hilar mass consistent with lung cancer. The patient remains on a pressure control mode, the blood gases show chronic hypercapnic respiratory failure and there is significant metabolic alkalosis on the blood work. Repeat sputum sample came back positive for Serratia and the patient has ongoing leukocytosis and pulmonary infiltrates. The patient is covered with IV cefepime. Alert respiratory status remains unchanged since yesterday. There is been improvement in the blood gases and acid base status and the patient's pCO2 is at 81 with a pH of 7.35 consistent with chronic hypoxic and hypercapnic respiratory failure in the field is at 65. Patient remains on pressure control mode of mechanical ventilation. Bilateral pneumonia and sepsis, secondary to Serratia and Haemophilus. In the most recent sputum culture from 04/13/2022 showed persistent Serratia, afebrile and hemodynamically stable COVID 19 infection confirmed on 04/10/2022 and positive on 04/13/2022 Non-small cell lung cancer with a left hilar mass, diagnosed in December 2021 and the patient was given systemic chemotherapy Acute exacerbation of secondary to above currently intubated on mechanical ventilator Enteral feeding for nutritional support and the patient has a PEG tube in place Previous history of respiratory failure, requiring intubation, and subsequent tracheostomy. Generalized anxiety disorder. The patient is currently on Seroquel and the patient has apparently has been taking Xanax on outpatient basis Severe/stage III/stage IV COPD, with an FEV1 that's 34%. Degenerative joint disease. Acute kidney injury, recovered Acute hyperkalemia secondary to respiratory acidosis, recovered Hyperchloremic hypernatremia, improving and the patient is currently on D5 water, and the sodium level is also normalized. Bilateral cortical parietal ischemic changes, consistent with ischemic stroke, possibly embolic because of the changes being bilateral. Plan: Discontinue the D5 water Continue ventilator support Continue with pressure control mode of mechanical ventilation. Hold sedation, and use Ativan as needed and the patient is receiving a dose of Seroquel Monitor mental status Anticoagulation with Eliquis 5 mg by mouth twice a day Stop Diamox Daily blood gases Continue enteral feeding for nutritional support, currently on Nepro Continue IV cefepime regarding persistent infection and positive sputum culture with Serratia Modified insulin dose for blood sugar control and the patient's Levemir those will be brought up to 22 units difficult to wean based on his advanced COPD, suspect end-stage lung disease and probably the patient may not have any successful weaning in the future. Prognosis poor. This is likely an unweanable case we'll continue to follow make further recommendations based on his progress. This evaluation was done and more than 30 minutes. This is a critically care evaluation. Long-term prognosis poor baseline above-mentioned comorbidities. Time with Patient: Greater than 30
[2022-04-17 17:42] LABS: Glucose,Whole Blood 335 mg/dL (70-110)
[2022-04-17] MEDS: LATANOPROST 0.005% OPHTH DROPS 2.5 ML BTL BOTH EYES SCH (20:59)
[2022-04-17] MEDS: ATORVASTATIN 10 MG TAB PO SCH (20:59)
[2022-04-17 23:15] LABS: Glucose,Whole Blood 252 mg/dL (70-110)
[2022-04-18] MEDS: NOREPINEPHRINE 4 MG in SODIUM CHLORIDE 0.9% 250 ML IV SCH ×2 (00:34→18:28)
[2022-04-18] MEDS: CEFEPIME 2 GM in SODIUM CHLORIDE 0.9% 100 ML IVPB SCH ×3 (01:32→18:09)
[2022-04-18] MEDS: HYDROmorphone 1 MG/ML 1 ML SYRINGE IVP PRN (01:58)
[2022-04-18] MEDS: CLEVIDIPINE BUTYRATE 25 MG in EMPTY BAG 1 BAG IV SCH ×5 (03:05→21:49)
[2022-04-18] MEDS: ALBUTEROL HFA INHALER INHALATION SCH ×6 (03:13→23:09)
[2022-04-18 03:28] LABS: Anisocytosis Slight; Basophils % (A) 0 %; Eosinophils # (A) 0.1 k/uL (0-0.7); Eosinophils % (A) 0 %; HCT 31.5 % (39.0-53.0); HGB 9.3 gm/dL (13.0-17.5); Hypochromasia Marked; Lymphocytes # (A) 0.3 k/uL (1.0-4.8); Lymphocytes % (A) 2 %; MCH 29.7 pg (25.0-35.0); MCHC 29.6 g/dL (31.0-37.0); MCV 100.3 fL (80.0-100.0); Macrocytosis Moderate; Mean Platelet Volume 8.1; Monocytes # (A) 0.4 k/uL (0-1.0); Monocytes % (A) 2 %; Neutrophils # (A) 15.4 k/uL (1.3-7.7); Neutrophils % (A) 96 %; Platelet Count 417 k/uL (150-450); RBC 3.14 m/uL (4.30-5.90); RDW 19.5 % (11.5-15.5); WBC 16.2 k/uL (3.8-10.6)
[2022-04-18 03:38] LABS: ALT 25 U/L (4-49); AST 16 U/L (17-59); African American GFR (CKD) >90 (>60 ml/min/1.73 sqM); Albumin 2.4 g/dL (3.5-5.0); Alkaline Phosphatase 140 U/L (38-126); Blood Urea Nitrogen 51 mg/dL (9-20); Calcium 9.5 mg/dL (8.4-10.2); Chloride 95 mmol/L (98-107); Glucose 223 mg/dL (74-99); Non-African American GFR(CKD) >90 (>60 ml/min/1.73 sqM); Sodium 142 mmol/L (137-145); Total Bilirubin 0.2 mg/dL (0.2-1.3); Total Protein 5.1 g/dL (6.3-8.2)
[2022-04-18 03:44] LABS: Anion Gap 4 mmol/L
[2022-04-18 03:56] LABS: Carbon Dioxide 43 mmol/L (22-30)
[2022-04-18 05:10] LABS: Glucose,Whole Blood 208 mg/dL (70-110)
[2022-04-18 05:49] LABS: ABG Base Excess 20.4 mmol/L; ABG Hematocrit 28 % (34.0-46.0); ABG Oxygen Saturation 92.4 % (94-97); ABG PCO2 67 mmHg (35-45); ABG PH 7.43 (7.35-7.45); ABG TCO2 47 mmol/L (19-24); Allen Test Performed? Yes
[2022-04-18 05:51] LABS: ABG HCO3 45 mmol/L (21-25); ABG PO2 59 mmHg (83-108)
--- NOTE | 2022-04-18 05:51 | CT ---
EXAMINATION TYPE: CT brain wo con DATE OF EXAM: 04/18/2022 COMPARISON: 04/16/2022 HISTORY: stroke. hypoattenuation over bilteral parietal CT DLP: 1158.4 mGycm Automated exposure control for dose reduction was used. Images of the brain obtained without contrast. Ventricles have normal size. There is no mass effect or midline shift. No sign of intracranial hemorr leonor. There is mild cerebral atrophy. There are some mild white matter hypodensity in both parietal l obes at the michelle-white matter junction. This is likely microvascular ischemia. The skull base is inta ct. There is limited pneumatization of the mastoid sinuses. IMPRESSION: There is probably some microvascular ischemia in the parietal lobes. No acute intracranial abnormalit y. No change compared to recent exam.
[2022-04-18] MEDS: INSULIN ASPART (NovoLOG) 100 UNIT/ML VIAL SQ SCH ×8 (06:14→23:51)
[2022-04-18] MEDS: methylPREDNISolone SOD SUCCI 125 MG/2 ML VIAL IV SCH ×4 (06:15→23:50)
[2022-04-18] MEDS: INSULIN DETEMIR (LEVEMIR) 100 UNIT/ML SYR SQ SCH (06:25)
[2022-04-18] MEDS: SYMBICORT 160-4.5 MCG INHALER INHALATION SCH ×2 (07:21→19:24)
--- NOTE | 2022-04-18 07:56 | XR ---
EXAMINATION TYPE: XR chest 1V portable DATE OF EXAM: 04/18/2022 7:13 AM COMPARISON: Chest radiographs from 04/15/2022 TECHNIQUE: XR chest 1V portable Frontal view of the chest. CLINICAL INDICATION:Male, 71 years old with history of COPD; FINDINGS: Tracheostomy tube noted. There is a left-sided PICC line in stable position with atherosclerotic preciado ge aorta. Diffuse emphysematous changes with unchanged patchy bilateral infiltrates. No sizable pleur al effusion. No pneumothorax or arthropathy of the shoulders. Left hilar mass again seen. IMPRESSION: 1. Similar patchy bilateral infiltrates in the lung bases. 2. COPD changes with left hilar mass redemonstrated.
--- NOTE | 2022-04-18 08:24 | P.PN ---
Subjective Progress Note Date: 04/17/22 Principal diagnosis: Possible sepsis with hypotension vs secondary to hypovolemia Acute on chronic hypoxic and hypercapnic respiratory failure Suspect aspiration pneumonia Acute exacerbation of COPD History of squamous cell lung cancer diagnosed on 01/01/2022 71 years old male with past medical history of COPD, Hearing Disorder / Deafness, Hyperlipidemia, Osteoarthritis, lung cancer diagnosed on 11/2021. Patient presents because of dyspnea. Patient currently is been intubated in the ICU and information were obtained from staff, records and family at bedside both and daughter. As per family patient has been having difficulty breathing all the time and yesterday evening around 10 PM started getting worse so he decided to come to emergency room. Patient has not been eating well for the last 2 days he was feeling food stuck in his throat. patient has chronic cough and creamy phlegm. He had chest pain only with coughing. Yesterday was getting into the bathroom when he felt so weak and he had to light on the floor on his knees. Also patient has been complaining of from diarrhea over the last 2 days with 3-4 puffs per day. No vomiting. History of getting chemo and radiotherapy last dose was less than a week ago for his left lung cancer. They think his oncologist is Dr. arauz and radiation oncologist is Dr. Patricia. His pool cleaner is Dr. Short, and he is on 2 L oxygen via nasal cannula He came through the emergency room and the floor he got worse and acidotic, eventually he was intubated at to the ICU. He got one bolus of normal saline 1000 mL. Distal have low urine output. 04/03/2022 Patient is seen and evaluated in room at bedside; remains in the ICU intubated and mechanically ventilated. His ABG showed a pO2 of 106 pCO2 56 pH of 7.34. Patient remains on 35% FiO2. Patient is off norepinephrine he remains on normal saline at 50 mL an hour and on propofol at 50 mcg/kg/m. Chest x-rays showing slight improvement in his bilateral infiltrates. Left hilar mass remains the same. Hence I have no plans to wean the patient today, and the family has made a decision that the patient does not wean in the next few days, they would like him to proceed with tracheostomy and PEG tube placement and eventual placement. We will decide this early next week in the meantime patient is not related to believe that extubated. CBC is relatively unremarkable WBC 7.3 hemoglobin is 8.8, basic metabolic profile is relatively normal, BUN is 67 creatinine is 1.36 IV fluids increased per jewelry sales recommendations No plans for extubation; continue with ventilator support, continue bronchodilator therapy; patient remains on IV Zosyn and Solu-Medrol 04/04/2022 Patient seen and evaluated, remains in the ICU, intubated and mechanically ventilated. ABG showed a pO2 of 69 pCO2 of 67 pH of 7.29. Patient remains on propofol at 50 mcg/kg/m, IV fluid 0.9 normal saline at 75 mL per hour Sputum is coming back positive for Serratia and Haemophilus influenza both are covered with Zosyn. Analytics Leader discussed prognosis and plan of care with the family about possible tracheostomy PEG tube placement PICC line placement and eventual placement and a ventilator facility; option of comfort care measures was discussed. Family seems to be inclined to proceed with tracheostomy and PEG tube placement as well as PICC line placement and eventual transfer to a ventilator facility/selective care specialty. WBC count is 8.8 hemoglobin is 9.7, basic metabolic profile is normal BUN is [address] angio the chest was ordered yesterday, no evidence of pulmonary embolism clinically I never thought that the patient had pulmonary embolism and the clinical presentation is not a presentation of pulmonary embolism. 04/17/2022 Acute on chronic hypoxemic and hypercapnic respiratory failure, status post intubation and mechanical ventilation on 03/31/2022, status post tracheostomy and PEG tube placement 04/06/2022, for failure to wean from mechanical ventilation. On today's evaluation, the patient remains bronchospastic and wheezy with elevated airway pressures. Blood gases showing an acute abdominal chronic hypoxic and hypercapnic respiratory failure. Chest x-ray findings are stable from yesterday the tracheostomy tube remains in a good location. There is evidence of multifocal airspace opacity with a left hilar mass consistent wit h lung cancer. The patient remains on a pressure control mode, the blood gases show chronic hypercapnic respiratory failure and there is significant metabolic alkalosis on the blood work. Repeat sputum sample came back positive for Serratia and the patient has ongoing leukocytosis and pulmonary infiltrates. The patient is covered with IV cefepime. Alert respiratory status remains unchanged since yesterday. There is been improvement in the blood gases and acid base status and the patient's pCO2 is at 81 with a pH of 7.35 consistent with chronic hypoxic and hypercapnic respiratory failure in the field is at 65. Patient remains on pressure control mode of mechanical ventilation. Objective - Vital Signs Vital signs: Vital Signs Temp 97.5 F L 04/17/22 04:00 Pulse 83 04/17/22 07:00 Resp 17 04/17/22 07:00 BP 171/74 04/16/22 10:01 Pulse Ox 97 04/17/22 07:00 FiO2 40 04/17/22 07:46 Intake & Output 04/16/22 04/17/22 04/17/22 18:59 06:59 18:59 Intake Total 1342 1702.466 142.667 Output Total 1275 1100 100 Balance 67 602.466 42.667 Weight 87 kg Intake: IV 1236 1215 100 Dextrose 5% in Water 1, 1200 1200 100 000 ml @ 100 mls/hr IV . Q10H NESHA Rx#:[id number] pressure bag 36 15 Intake, IV Titration 106 97.466 12.667 Amount Cefepime 2 gm In Sodium 100 Chloride 0.9% 100 ml @ 25 mls/hr IVPB Q8H NESHA Rx#: [id number] Clevidipine Butyrate 25 6 97.466 12.667 mg In Empty Bag 1 bag @ 1 MG/HR 2 mls/hr IV .Q24H NESHA Rx#:[id number] Tube Feeding 300 30 Other 90 Output: Urine 1275 1100 100 Other: Voiding Method Indwelling Catheter Indwelling Catheter ABP, PAP, CO, CI - Last Documented Arterial Blood Pressure 163/64 - Exam -GENERAL: The patient is alert intubated and sedated HEENT: Pupils are round and equally reacting to light. EOMI. No scleral icterus. No conjunctival pallor. Normocephalic, atraumatic. No pharyngeal erythema. No thyromegaly. CARDIOVASCULAR: S1 and S2 present. No murmurs, rubs, or gallops. PULMONARY: Chest is clear to auscultation, no wheezing or crackles. Decreased air entry bilaterally ABDOMEN: Soft, nontender, nondistended, normoactive bowel sounds. No palpable organomegaly. MUSCULOSKELETAL: No joint swelling or deformity. EXTREMITIES: No cyanosis, clubbing, or pedal edema. NEUROLOGICAL: Gross neurological examination did not reveal any focal deficits. SKIN: No rashes. no petechiae. - Labs CBC & Chem 7: 04/18/22 03:10 04/18/22 03:10 Labs: Abnormal Lab Results - Last 24 Hours (Table) 04/16/22 04/16/22 04/16/22 Range/Units 11:33 18:23 23:35 WBC (3.8-10.6) k/uL RBC (4.30-5.90) m/uL Hgb (13.0-17.5) gm/dL Hct (39.0-53.0) % MCV (80.0-100.0) fL MCHC (31.0-37.0) g/dL RDW (11.5-15.5) % Neutrophils # (1.3-7.7) k/uL Lymphocytes # (1.0-4.8) k/uL Macrocytosis ABG pCO2 (35-45) mmHg ABG pO2 (83-108) mmHg ABG HCO3 (21-25) mmol/L ABG Total CO2 (19-24) mmol/L ABG O2 Saturation (94-97) % ABG Hematocrit (34.0-46.0) % Hemoglobin (13.0-17.5) gm/dL Chloride (98-107) mmol/L Carbon Dioxide (22-30) mmol/L BUN (9-20) mg/dL Glucose (74-99) mg/dL POC Glucose (mg/dL) 274 H 278 H 303 H (70-110) mg/dL Total Bilirubin (0.2-1.3) mg/dL AST (17-59) U/L Alkaline Phosphatase (38-126) U/L Total Protein (6.3-8.2) g/dL Albumin (3.5-5.0) g/dL 04/17/22 04/17/22 04/17/22 Range/Units 04:09 04:09 05:51 WBC 15.3 H (3.8-10.6) k/uL RBC 2.70 L (4.30-5.90) m/uL Hgb 8.3 L (13.0-17.5) gm/dL Hct 28.2 L (39.0-53.0) % MCV 104.6 H (80.0-100.0) fL MCHC 29.4 L (31.0-37.0) g/dL RDW 19.9 H (11.5-15.5) % Neutrophils # 14.5 H (1.3-7.7) k/uL Lymphocytes # 0.2 L (1.0-4.8) k/uL Macrocytosis Marked A ABG pCO2 81 H* (35-45) mmHg ABG pO2 65 L (83-108) mmHg ABG HCO3 45 H* (21-25) mmol/L ABG Total CO2 47 H (19-24) mmol/L ABG O2 Saturation 93.0 L (94-97) % ABG Hematocrit 25 L (34.0-46.0) % Hemoglobin 8.1 L (13.0-17.5) gm/dL Chloride 95 L (98-107) mmol/L Carbon Dioxide 41 H* (22-30) mmol/L BUN 48 H (9-20) mg/dL Glucose 262 H (74-99) mg/dL POC Glucose (mg/dL) (70-110) mg/dL Total Bilirubin <0.1 L (0.2-1.3) mg/dL AST 16 L (17-59) U/L Alkaline Phosphatase 140 H (38-126) U/L Total Protein 4.7 L (6.3-8.2) g/dL Albumin 2.2 L (3.5-5.0) g/dL 04/17/22 Range/Units 06:05 WBC (3.8-10.6) k/uL RBC (4.30-5.90) m/uL Hgb (13.0-17.5) gm/dL Hct (39.0-53.0) % MCV (80.0-100.0) fL MCHC (31.0-37.0) g/dL RDW (11.5-15.5) % Neutrophils # (1.3-7.7) k/uL Lymphocytes # (1.0-4.8) k/uL Macrocytosis ABG pCO2 (35-45) mmHg ABG pO2 (83-108) mmHg ABG HCO3 (21-25) mmol/L ABG Total CO2 (19-24) mmol/L ABG O2 Saturation (94-97) % ABG Hematocrit (34.0-46.0) % Hemoglobin (13.0-17.5) gm/dL Chloride (98-107) mmol/L Carbon Dioxide (22-30) mmol/L BUN (9-20) mg/dL Glucose (74-99) mg/dL POC Glucose (mg/dL) 295 H (70-110) mg/dL Total Bilirubin (0.2-1.3) mg/dL AST (17-59) U/L Alkaline Phosphatase (38-126) U/L Total Protein (6.3-8.2) g/dL Albumin (3.5-5.0) g/dL Assessment and Plan Assessment: Acute on chronic hypoxemic and hypercapnic respiratory failure, status post intu bation and mechanical ventilation on 03/31/2022, status post tracheostomy and PEG tube placement 04/06/2022, for failure to wean from mechanical ventilation. On today's evaluation, the patient remains bronchospastic and wheezy with elevated airway pressures. Blood gases showing an acute abdominal chronic hypoxic and hypercapnic respiratory failure. Chest x-ray findings are stable from yesterday the tracheostomy tube remains in a good location. There is evidence of multifocal airspace opacity with a left hilar mass consistent with lung cancer. The patient remains on a pressure control mode, the blood gases show chronic hypercapnic respiratory failure and there is significant metabolic alkalosis on the blood work. Repeat sputum sample came back positive for Serratia and the patient has ongoing leukocytosis and pulmonary infiltrates. The patient is covered with IV cefepime. Alert respiratory status remains unchanged since yesterday. There is been improvement in the blood gases and acid base status and the patient's pCO2 is at 81 with a pH of 7.35 consistent with chronic hypoxic and hypercapnic respiratory failure in the field is at 65. Patient remains on pressure control mode of mechanical ventilation. Bilateral pneumonia and sepsis, secondary to Serratia and Haemophilus. In the most recent sputum culture from 04/13/2022 showed persistent Serratia, afebrile and hemodynamically stable COVID 19 infection confirmed on 04/10/2022 and positive on 04/13/2022 Non-small cell lung cancer with a left hilar mass, diagnosed in December 2021 and the patient was given systemic chemotherapy Acute COPD exacerbation Left hilar mass consistent with his history of lung cancer since 11/2021 Acute hypoxic hypercapnic respiratory failure chronic hypoxic respiratory failure Left Lung cancer, undergoing chemoradiotherapy Hearing difficulty Hyperlipidemia Osteoarthritis Elevated troponin, rule out cardiac causes Plan: Continue with intubation and mechanical ventilation pulmonary/critical care unit Continue with steroids and bronchodilators. He was started on Solu-Medrol 60 mg every 6 hours Pulmonary consult Patient will need swallow evaluation when he is extubated Cardiology consult. Continue with normal saline infusion. Bronchodilator. Check pro-calcitonin Give one bolus of normal saline and monitor input and output Labs and medication were reviewed.. Continue same treatment. Continue with symptomatic treatment. Resume home medication. Monitor lytes and vitals. DVT and GI prophylaxis. Further recommendations as per clinical course of the patient DVT prophylaxis: Subcutaneous heparin GI Prophylaxis: Ppi Prognosis is guarded
[2022-04-18] MEDS: CHOLECALCIFEROL 25 MCG (1000 IU) TABLET PO SCH (08:32)
[2022-04-18] MEDS: GABAPENTIN 300 MG CAP PO SCH ×3 (08:32→21:19)
[2022-04-18] MEDS: APIXABAN 5 MG TAB PO SCH ×2 (08:32→21:18)
[2022-04-18] MEDS: CHLORHEXIDINE GLUCONATE 15 ML CUP MUCOUS MEM SCH ×2 (08:32→21:18)
[2022-04-18] MEDS: QUEtiapine 50 MG TAB PO SCH (08:32)
[2022-04-18] MEDS: PANTOPRAZOLE 40 MG/10 ML VIAL IVP SCH (08:32)
[2022-04-18] MEDS: amLODIPine 10 MG TAB PO SCH (08:32)
[2022-04-18] MEDS ORDERED: FUROSEMIDE 10 MG/ML 4 ML VIAL IV STA (09:17)
[2022-04-18] MEDS ORDERED: QUEtiapine 50 MG TAB PO STA (09:28)
--- NOTE | 2022-04-18 11:20 | P.PN ---
Subjective Progress Note Date: 04/18/22 The patient is seen at bedside and per nurse he was wiggling his toes and had few nods appropriately to questioning. Objective - Vital Signs Vital signs: Vital Signs Temp 98.2 F 04/18/22 08:00 Pulse 91 04/18/22 10:00 Resp 40 H 04/18/22 10:00 BP 145/77 04/18/22 01:00 Pulse Ox 90 L 04/18/22 10:00 FiO2 50 04/18/22 08:00 Intake & Output 04/17/22 04/18/22 04/18/22 18:59 06:59 18:59 Intake Total 1799.400 807.000 262.000 Output Total 1175 900 425 Balance 624.400 -93.000 -163.000 Weight 86.5 kg Intake: IV 1343 366 92 Dextrose 5% in Water 1, 1200 100 000 ml @ 100 mls/hr IV . Q10H [facility] Rx#:[id number] Lactated ringers 110 20 Sodium Chloride 0.9% 210 80 pressure bag 33 36 12 Intake, IV Titration 96.400 81.000 50.000 Amount Clevidipine Butyrate 25 96.400 81.000 50.000 mg In Empty Bag 1 bag @ 1 MG/HR 2 mls/hr IV .Q24H [facility] Rx#:[id number] Tube Feeding 360 300 90 Other 60 30 Output: Urine 1175 900 425 Other: Voiding Method Indwelling Catheter Indwelling Catheter Indwelling Catheter ABP, PAP, CO, CI - Last Documented Arterial Blood Pressure 176/54 - Exam GENERAL: The patient is lying in bed and does not appear in acute distress. LUNG: Clear to auscultation bilaterally and sounds rhonia. Not labored breathing. He has trach and on vent. NEUROLOGICAL: Limited because of his condition. Not on any sedation. Higher mental function: The patient is comatose GCS 5 (E3, VT1, M1). He would briefly open his eyes to voice. Not verbalizing or following commands. Cranial nerves: The pupils are round, equal and reactive to light. No facial w eakness. He would move his head side to side upon examining him. Otherwise could not assess rest. Motor: The strength is hard to assess but to painful stimuli he would grimaces his face. Otherwise no spontaneous movement. He would grimace on lifting uppers. Decrease tone throughout. Has edema of all extremities. Cerebellum: Sensation: Could not assess light touch on pinprick but would grimace face to painful stimuli throughout. SOME OF THE WORK-UP DURING THIS HOSPITAL VISIT CONSISTED OF: CT of the head was ordered by the ICU team since patient continued to be altered . The CT head is reported as limited by artifact particularly the medication the posterior fossa. Grossly no acute hemorrhage or mass effect. However there is intermediate low attenuation in the superior right parietal and left posterior parietal lobes suspicious for recent ischemia. Recommend follow-up MRI. Degenerative and nonspecific white matter changes most typical of remote ischemia. I personally reviewed the CT of the head and I agree with the repot. HbA1c 7.6. 2-D echo was reported as left ventricular ejection fraction of 25-30% with a global hypokinesis. Moderately dilated right ventricle. Left atrium is normal in size. CT angiography of the head and neck was reported as no evidence of dissection of the cervical internal carotid arteries or vertebral arteries or any evidence of significant stenosis at the carotid bifurcation. No evidence of high-grade stenosis or intracranial aneurysm. Redemonstration of indeterminate low attenuation in the superior right parietal and left posterior parietal lobes. Further evaluation with MRI is recommended. Severe central lobular emphysematous changes with patchy consolidation within the left upper lobe which may represent infection/inflammatory process. Repeat CT of the head on 04/16/2022 his report as there remains intermediate low attenuation in the right parietal and left parietal lobes which are suspicious for an early or acute ischemia. No drift acute hemorrhage. Findings similar to prior exam. Degenerative changes and nonspecific low attenuation in the white matter most typical of remote ischemia. I personally reviewed to the head and I feel the hypoattenuation is over the border of bilateral frontal parietal region. Repeat CT head on 04/18/2022: Is reported as there is probably some mi crovascular ischemia and the parietal lobes. No acute intracranial abnormality. No change compared to the recent exam. Limited 2-D echo was reported as mild left ventricular hypertrophy. Left ventr icle ejection fraction 55-60%. Trace mitral regurgitation and tricuspid regurgitation. The body reported it is reported as no evidence of vegetation. - Labs CBC & Chem 7: 04/18/22 03:10 04/18/22 03:10 Labs: Abnormal Lab Results - Last 24 Hours (Table) 04/17/22 04/17/22 04/17/22 Range/Units 12:56 17:41 23:12 WBC (3.8-10.6) k/uL RBC (4.30-5.90) m/uL Hgb (13.0-17.5) gm/dL Hct (39.0-53.0) % MCV (80.0-100.0) fL MCHC (31.0-37.0) g/dL RDW (11.5-15.5) % Neutrophils # (1.3-7.7) k/uL Lymphocytes # (1.0-4.8) k/uL ABG pCO2 (35-45) mmHg ABG pO2 (83-108) mmHg ABG HCO3 (21-25) mmol/L ABG Total CO2 (19-24) mmol/L ABG O2 Saturation (94-97) % ABG Hematocrit (34.0-46.0) % Hemoglobin (13.0-17.5) gm/dL Chloride (98-107) mmol/L Carbon Dioxide (22-30) mmol/L BUN (9-20) mg/dL Glucose (74-99) mg/dL POC Glucose (mg/dL) 303 H 335 H 252 H (70-110) mg/dL AST (17-59) U/L Alkaline Phosphatase (38-126) U/L Total Protein (6.3-8.2) g/dL Albumin (3.5-5.0) g/dL 04/18/22 04/18/22 04/18/22 Range/Units 03:10 03:10 05:08 WBC 16.2 H (3.8-10.6) k/uL RBC 3.14 L (4.30-5.90) m/uL Hgb 9.3 L (13.0-17.5) gm/dL Hct 31.5 L (39.0-53.0) % MCV 100.3 H (80.0-100.0) fL MCHC 29.6 L (31.0-37.0) g/dL RDW 19.5 H (11.5-15.5) % Neutrophils # 15.4 H (1.3-7.7) k/uL Lymphocytes # 0.3 L (1.0-4.8) k/uL ABG pCO2 (35-45) mmHg ABG pO2 (83-108) mmHg ABG HCO3 (21-25) mmol/L ABG Total CO2 (19-24) mmol/L ABG O2 Saturation (94-97) % ABG Hematocrit (34.0-46.0) % Hemoglobin (13.0-17.5) gm/dL Chloride 95 L (98-107) mmol/L Carbon Dioxide 43 H* (22-30) mmol/L BUN 51 H (9-20) mg/dL Glucose 223 H (74-99) mg/dL POC Glucose (mg/dL) 208 H (70-110) mg/dL AST 16 L (17-59) U/L Alkaline Phosphatase 140 H (38-126) U/L Total Protein 5.1 L (6.3-8.2) g/dL Albumin 2.4 L (3.5-5.0) g/dL 04/18/22 Range/Units 05:46 WBC (3.8-10.6) k/uL RBC (4.30-5.90) m/uL Hgb (13.0-17.5) gm/dL Hct (39.0-53.0) % MCV (80.0-100.0) fL MCHC (31.0-37.0) g/dL RDW (11.5-15.5) % Neutrophils # (1.3-7.7) k/uL Lymphocytes # (1.0-4.8) k/uL ABG pCO2 67 H (35-45) mmHg ABG pO2 59 L* (83-108) mmHg ABG HCO3 45 H* (21-25) mmol/L ABG Total CO2 47 H (19-24) mmol/L ABG O2 Saturation 92.4 L (94-97) % ABG Hematocrit 28 L (34.0-46.0) % Hemoglobin 9.2 L (13.0-17.5) gm/dL Chloride (98-107) mmol/L Carbon Dioxide (22-30) mmol/L BUN (9-20) mg/dL Glucose (74-99) mg/dL POC Glucose (mg/dL) (70-110) mg/dL AST (17-59) U/L Alkaline Phosphatase (38-126) U/L Total Protein (6.3-8.2) g/dL Albumin (3.5-5.0) g/dL Assessment and Plan Assessment: Probable acute ischemic stroke over bilateral parietal on CT head. Unknown etiology. No a-fib reported so far. Encephalopathy due to multifactorial: Septic encephalopathy due to pneumonia/COVID-19, Serratia and Haemophilus. Also component of metabolic/electrolyte abnormality with hypernatremia and medication effect (Ativan). 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 Possibly hypernatremia as seems due to dehydration Cardiomyopathy with ejection fraction of 25-30% on recent 2Decho History of non-small cell lung cancer with a left hilar mass diagnosed in December 2021 the patient was given systemic chemotherapy Plan: He is on Eliquis 5mg bid (started on 04/16/2022) and sufficient from neur ological perspective. Continue Lipitor 10 mg daily at bedtime for now. Recent CT head on 04/18/2022 is unchanged compared to prior last 2 CT head. Cannot obtain MRI since the patient is on a ventilator. Cardiology team does not feel KHANH is needed since no mass or vegetation on repeat 2D echo. Every 3 hour neuro checks On cardiac monitoring PT OT and MULTIGRAPHER are already consulted Please avoid any further Dilaudid or any sedatives that will effect neurological examination. He is on Seroquel 100mg 1 tab bid per ICU team. We'll defer the rest of medical management to the primary ICU team For DVT prophylaxis patient is on subcu heparin 5000 units every 12 hours. Discontinues once Eliquis is started. The patient condition is critical. His overall prognosis is poor (because of multiple comorbidities). The plan is discussed with the patient's ICU nurse. Dr. Beyer will start neurology service tomorrow Sadie Fisher M.D. Neuro-Hospitalist Time with Patient: Less than 30
[2022-04-18 11:39] LABS: Glucose,Whole Blood 235 mg/dL (70-110)
--- NOTE | 2022-04-18 11:43 | P.PN ---
Subjective Progress Note Date: 04/18/22 On today's evaluation of a 04/12, the patient is being seen for a follow- up. This patient has advanced COPD with a baseline FEV1 of 34% of predicted and currently is on a mechanical ventilator. He was intubated on 02/28/2022 and he was given a tracheostomy tube and a PEG tube on 03/06/2022. The patient has a Bivona tracheostomy tube #7. The patient is currently off sedation. He is receiving Dilaudid 1 mg every 2-3 hours when necessary basis in addition to Seroquel 50 mg by mouth 3 times a day. He has been taken off propofol for now. He is arousable and follows some simple commands. He is still having labored breathing. This morning, he was tachypneic and he was at times double stacking his breath. He was on a VC plus mode of mechanical ventilation at the rate of 20 with a tidal volume of 450 with an FiO2 of 65% with a PEEP of 5. The peak airway pressure is elevated at 42. The static pressure is 24. The patient remains bronchospastic and wheezy. Respiratory secretions are still active and previous cultures have shown a combination of Serratia and Haemophilus influenza and this is cultures based on the one done on 03/24/2022. The blood gases from today shows a pH of 7.31 with a pCO2 of 88 and pO2 of 71. The patient is afebrile. The white cell count is at 4.4 with a hemoglobin of 8 and a platelet count of 391. Sodium is at 142 with a potassium level of 5.3 chloride is 96 bicarb is 41 with a mean of 46 and a creatinine of 0.9. The fluid balance is positive for on 60 mL over the past 24 hours. The patient is receiving vitals H P at the rate of 63 mL an hour. No other significant events overnight. His blood pressure remains elevated and the patient remains on Cleviprex running at 20 mg an hour for blood pressure control. 04/13/2022, patient is being seen for a follow-up. The patient remains on a mechanical ventilator. He is quite tachypneic and the patient is asynchronous the mechanical ventilator and this morning is having excess amount of leak on the tracheostomy tube. Based on that, I personally tube another centimeter and with repositioning, the leaks improved and the patient was switched to a pressure control mode of mechanical ventilation. Earlier to that, the patient was an assist-control mode of mechanical ventilation, volume cycle and the patient was on a tidal volume of 300 with a rate of seen and FiO2 of 70% with a fecal 5. Morning blood gases showed a pH of 7.08 with a pCO2 of 120 and pO2 of 73. Based on that, the ventilator setting was changed to a pressure control mode mechanical ventilation. The chest x-ray showing diffuse bilateral pulmonary infiltrates with worsening in the left perihilar pulmonary infiltrate in the left lower lobe pulmonary infiltrate and the patient has multifocal airspace disease. The left hilar mass was again demonstrated. There is no evidence of any pneumothorax. Tracheostomy tube is in a good location the patient had background COPD. Hemodynamically, the patient's blood pressure is under better control and the patient is currently off Cleviprex. The patient is currently on a combination of Norvasc and clonidine which is controlled his blood pressure more effectively. He is receiving enteral feeding for nutritional support and his on vital 83 at the rate of 30 mL an hour. In terms of sedation, the patient is receiving propofol. He is on a combination of Seroquel, Dilaudid and Ativan for now all of them are being given [id number]. He withdraws only to deep painful stimulation. Does not follow any commands.. The has been on bronchodilators and is also on IV Solu Medrol dose of 60 mg every 6 hours. Extensively bronchospastic and weak. The white cell count of 13.7 and hemoglobin at 8.6 and a platelet count of 423. Sodium is 146 with a potassium level of 6 and elevation of the potassium level is probably related to the respiratory acidosis. Serum bicarbonate 47.. With a BUN of 58 and a creatinine of 0.7. 04/14/2022, patient is being seen for a follow-up. This morning, the patient is adequately sedated. He grimaces to painful stimulation. Receiving a combination of Dilaudid and Ativan. He remains on a pressure control mode of mechanical ventilation. INR is still having leaks around the tracheostomy tube. More air was placed in the tracheostomy tube balloon and this eliminated air leak. He is currently on a pressure control mode and he is at a rate of 22, pressure control of 25 cm of water with a FiO2 of 70% and a PEEP of 5. Blood gases from today shows a pH of 7.25 with a pCO2 of 115 and a few to 109. Note that after eliminating the air leak, repeat blood gases was done and the patient was found to have a pH of 7.34 with a pCO2 of 11 and pO2 of 78. The patient is still bronchospastic and wheezy at this point in time. From today repeat chest x-ray showed COPD and patchy bilateral pulmonary infiltrates with a left hilar. The patient is ventilator dependent. Atelectatic discussion with the family yesterday and wanted to proceed with ongoing treatment with understanding that the patient's aunts of coming off the mechanical ventilator extremely low on 4. Hemodynamically stable and the patient is still receiving enteral feeding for nutritional support. On his blood work, potassium level was at 5.9 and the patient was given 2 doses of sodium bicarb and repeat potassium level is to be obtained. Meanwhile, the white cell count of 10.7 with a hemoglobin of 8.8 and a platelet count of 430. The patient has sodium level of 48 with a potassium level of 5.9 and a serum bicarbonate was 48. Repeat potassium came down to 5.4. No other significant events. The patient continued to receive enteral feeding for nutritional support and the patient is receiving vital HP. No abdominal distention. No nausea or vomiting. No other significant events overnight. 04/15/2022, the patient remains on a mechanical ventilator. Neurologically, the patient remains quite obtunded and is not following any commands. He grimaces to painful stimulation. He was being given a combination of Dilaudid and Ativan. He does not follow any commands. His breathing is labored even while on the mechanical ventilator on a pressure control mode. He tries to triggered event with chest wall movements and he is unable to do so. He is breathing effort remains quite weak and is probably along the lines of his advanced end- stage lung disease. Based on his underlying mentation which is still impaired, I made recommendations to stop all sedations and proceed with a CAT scan of the brain. He remains on a pressure control mode of mechanical ventilation at the rate of 22 with a pressure control of 25 and FiO2 of 70% and PEEP of 5 on the morning blood gases was favorable with a pH of 7.42 and a pO2 of 88 and pO2 of 85 and this was on FiO2 of 60%. His blood work electrolytes from today show a sodium level of 150 with a INR of 65 and a creatinine of 0.6. Potassium level is at 5 and a serum bicarbonate of 50. The white cell count 10.7 with hemoglobin 8.2 and the chest x-ray from today shows a left hilar mass, COPD, improved aeration suggestive of resolving infiltrates. No respiratory secretions. No leak from the tracheostomy tube. The patient continued to receive enteral feeding for nutritional support and he is able to tolerate a diet without any major difficulties. No regurgitation. No aspiration. No abdominal distention. No fever or chills. He remains on IV Solu-Medrol in addition to bronchodilators. He has been diagnosed having positive COVID 19 04/16/2022, on seeing the patient for a follow-up. The patient is currently off sedation patient seems to be more interactive as the patient is opening his eyes at times spontaneously and I was told that he was able to follow some simple commands. Overall, he is extremely weak and he has been raising his eyebrows and wiggling his toes upon command. This is not a consistent response however. Due to his underlying mental status condition, I did a CAT scan of the brain and this was followed up by CT angiogram. Note that the patient was found to have some ischemic changes in the parietal areas bilaterally. Based on that, a neurologic consultation was requested and short of a PE, we decided to evaluate this patient and patient is currently on anti-correlation with Eliquis 5 mg by mouth twice a day. Suspect possible embolic stroke. Meanwhile, the patient remains on a mechanical ventilator. Today he is on on pressure control mode of mechanical ventilation with a rate of 22, pressure control of 26, FiO2 of 50% with a PEEP of 5. His chest x-ray findings are unchanged. His sputum was positive for Serratia and the patient wasn't found at 17.3. Based on that the patient will be started back on antibiotics. Insulin is at 9 with a platelet count of 451. The blood gas showed a pH of 7.41 with a pCO2 of 76 and pO2 of 86. The patient was also given D5 water regarding hyperchloremic hypernatremia. Sodium level is down to 148 and a serum bicarbonate 47 and the patient is also receiving Diamox. He is a 50 with a creatinine of 0.8 and a potassium level is at 4.0. The patient continues to receive enteral feeding for nutritional support with Nepro at the rate of 30 an hour. Urine output is adequate for now. 04/17/2022, the patient the patient is being seen for a follow-up. Mental status has become an ongoing issue as the patient becomes quite agitated and restless and anxious while off sedation. He was given Precedex and this has been used on and off during the day currently is off Precedex. However earlier this morning, he was following commands and these are essentially simple commands and the patient was getting anxious anesthetized with a mechanical ventilator. Based on that, the patient was given Ativan 1 mg IV and at the time of my evaluation the patient was doing better and he was more synchronous. He continues to have shallow breathing, he tries to make respiratory efforts above the mechanical ventilator and is unable to check that every breath. He remains on a pressure control at the rate of 22 with a pressure control of 26 cm of water and FiO2 of 40% and PEEP of 5. The chest x-ray findings are essentially unchanged repeat chest x-ray is to be done today. Meanwhile, the patient was restarted back on IV cefepime and the patient was found to have again Serratia and his sputum. The patient has a white cell count of 15.3 with a hemoglobin of 8.3. The blood gases from today shows a pH of 7.35 with a pCO2 of 81 and pO2 of 65. Serum bicarbonate is on 41 and the patient was receiving Diamox 250 mg IV every 12 hours. Overall fluid balance is +669 mL over the past 24 hours. The patient is receiving enteral feeding for nutritional support. The patient was also started on anticoagulation with Eliquis upon request of the neurologist. No fever. No diarrhea. No other significant events otherwise for now. Extremely debilitated with extremely low chances of weaning from the mechanical ventilator. 04/18/2022, the patient is awake yet extremely weak and debilitated barely able to move his eyebrows and toes on demand. Breathing seems to be started as the patient try to trigger the ventilator and uses abdominal and chest wall muscles to initiated breath on a mechanical ventilator. These are ineffective and unable to trigger the mechanical ventilator at all times. Meanwhile, the patient remains on a pressure control mode of mechanical ventilation. The pressure control is currently at the rate of 22 with a pressure control of 26 cm of water and FiO2 of 40% with a PEEP of 5. The patient's blood gas shows improvement and acid base status. On today's blood work, the pH is at 7.43 with a pCO2 of 67 and pO2 of 69 and there is improvement and acid base status. The patient is doing well otherwise. No significant respiratory secretions of the chest x-ray findings are essentially unchanged. The patient on and off is still requiring Levophed for blood pressure control which is currently running at 6 mg an hour. The patient is also on Nepro for enteral feeding and nutritional support at the rate of 30 mL an hour. He is afebrile. He remains on Seroquel. Ativan as needed. The white cell count of 16.2 with hemoglobin 9.2. The sodium is 142 with a 51-0.6. No wounds. No sores. Has increased edema in the upper and lower extremities and the patient is third spacing at this point in time. Active site is dry clean and intact. He is on anticoagulation. He is on Eliquis. Cardiac rhythm is sinus. No other significant events otherwise for now. He is now wean embolism patient was placed on a pressure support mode of mechanical ventilation and is generated tidal volume was extremely weak and he was ready tachypneic with a respiratory rate of about 40 on spontaneous mode of mechanical ventilation. Objective - Vital Signs Vital signs: Vital Signs Temp 98.2 F 04/18/22 08:00 Pulse 91 04/18/22 10:00 Resp 40 H 04/18/22 10:00 BP 145/77 04/18/22 01:00 Pulse Ox 90 L 04/18/22 10:00 FiO2 40 04/18/22 11:12 Intake & Output 04/17/22 04/18/22 04/18/22 18:59 06:59 18:59 Intake Total 1799.400 807.000 262.000 Output Total 1175 900 425 Balance 624.400 -93.000 -163.000 Weight 86.5 kg Intake: IV 1343 366 92 Dextrose 5% in Water 1, 1200 100 000 ml @ 100 mls/hr IV . Q10H NESHA Rx#:[id number] Lactated ringers 110 20 Sodium Chloride 0.9% 210 80 pressure bag 33 36 12 Intake, IV Titration 96.400 81.000 50.000 Amount Clevidipine Butyrate 25 96.400 81.000 50.000 mg In Empty Bag 1 bag @ 1 MG/HR 2 mls/hr IV .Q24H NESHA Rx#:[id number] Tube Feeding 360 300 90 Other 60 30 Output: Urine 1175 900 425 Other: Voiding Method Indwelling Catheter Indwelling Catheter Indwelling Catheter ABP, PAP, CO, CI - Last Documented Arterial Blood Pressure 176/54 - Exam Very much debilitated, weak, cachectic, responsive and he follows only simple commands such as wiggling his toes and moves his eyes and eyebrows. He seems to be also having some labored breathing as the patient uses chest wall muscles to initiate or triggering the mechanical ventilator. He has a barrel chest. Head exam was generally normal. There was no scleral icterus or corneal arcus. Mucous membranes were moist. HEENT examination is grossly unremarkable. Tracheostomy site is dry clean and intact and the patient has a Bivona tracheostomy tube in place Neck supple. Full range of motion. No adenopathy thyromegaly or neck vein distention. Cardiovascular examination reveals regular rhythm rate. S1-S2 normal. No S3 or S4. No discernible murmur noted. Heart sounds are distant. Lungs reveal scattered bilateral rhonchi. Breath sounds equal bilaterally wheezes. No crackles. Abdomen soft bowel sounds are heard. No masses or tenderness. PEG tube noted. Examination of the extremities revealed easily palpable radial, femoral and pedal pulses. There was no cyanosis, clubbing or edema. Examination of the skin revealed no evidence of significant rashes, suspicious appearing nevi or other concerning lesions. Neurologic examination ; The patient is apparently following simple commands today. He is quite obtunded and he grimaces to painful stimulation.. He is able to withdraw the patient was some additional 4 extremities. Pupils are equal and reactive to light. - Labs CBC & Chem 7: 04/18/22 03:10 04/18/22 03:10 Labs: Abnormal Lab Results - Last 24 Hours (Table) 04/17/22 04/17/22 04/17/22 Range/Units 12:56 17:41 23:12 WBC (3.8-10.6) k/uL RBC (4.30-5.90) m/uL Hgb (13.0-17.5) gm/dL Hct (39.0-53.0) % MCV (80.0-100.0) fL MCHC (31.0-37.0) g/dL RDW (11.5-15.5) % Neutrophils # (1.3-7.7) k/uL Lymphocytes # (1.0-4.8) k/uL ABG pCO2 (35-45) mmHg ABG pO2 (83-108) mmHg ABG HCO3 (21-25) mmol/L ABG Total CO2 (19-24) mmol/L ABG O2 Saturation (94-97) % ABG Hematocrit (34.0-46.0) % Hemoglobin (13.0-17.5) gm/dL Chloride (98-107) mmol/L Carbon Dioxide (22-30) mmol/L BUN (9-20) mg/dL Glucose (74-99) mg/dL POC Glucose (mg/dL) 303 H 335 H 252 H (70-110) mg/dL AST (17-59) U/L Alkaline Phosphatase (38-126) U/L Total Protein (6.3-8.2) g/dL Albumin (3.5-5.0) g/dL 04/18/22 04/18/22 04/18/22 Range/Units 03:10 03:10 05:08 WBC 16.2 H (3.8-10.6) k/uL RBC 3.14 L (4.30-5.90) m/uL Hgb 9.3 L (13.0-17.5) gm/dL Hct 31.5 L (39.0-53.0) % MCV 100.3 H (80.0-100.0) fL MCHC 29.6 L (31.0-37.0) g/dL RDW 19.5 H (11.5-15.5) % Neutrophils # 15.4 H (1.3-7.7) k/uL Lymphocytes # 0.3 L (1.0-4.8) k/uL ABG pCO2 (35-45) mmHg ABG pO2 (83-108) mmHg ABG HCO3 (21-25) mmol/L ABG Total CO2 (19-24) mmol/L ABG O2 Saturation (94-97) % ABG Hematocrit (34.0-46.0) % Hemoglobin (13.0-17.5) gm/dL Chloride 95 L (98-107) mmol/L Carbon Dioxide 43 H* (22-30) mmol/L BUN 51 H (9-20) mg/dL Glucose 223 H (74-99) mg/dL POC Glucose (mg/dL) 208 H (70-110) mg/dL AST 16 L (17-59) U/L Alkaline Phosphatase 140 H (38-126) U/L Total Protein 5.1 L (6.3-8.2) g/dL Albumin 2.4 L (3.5-5.0) g/dL 04/18/22 Range/Units 05:46 WBC (3.8-10.6) k/uL RBC (4.30-5.90) m/uL Hgb (13.0-17.5) gm/dL Hct (39.0-53.0) % MCV (80.0-100.0) fL MCHC (31.0-37.0) g/dL RDW (11.5-15.5) % Neutrophils # (1.3-7.7) k/uL Lymphocytes # (1.0-4.8) k/uL ABG pCO2 67 H (35-45) mmHg ABG pO2 59 L* (83-108) mmHg ABG HCO3 45 H* (21-25) mmol/L ABG Total CO2 47 H (19-24) mmol/L ABG O2 Saturation 92.4 L (94-97) % ABG Hematocrit 28 L (34.0-46.0) % Hemoglobin 9.2 L (13.0-17.5) gm/dL Chloride (98-107) mmol/L Carbon Dioxide (22-30) mmol/L BUN (9-20) mg/dL Glucose (74-99) mg/dL POC Glucose (mg/dL) (70-110) mg/dL AST (17-59) U/L Alkaline Phosphatase (38-126) U/L Total Protein (6.3-8.2) g/dL Albumin (3.5-5.0) g/dL Assessment and Plan Plan: Acute on chronic hypoxemic and hypercapnic respiratory failure, status post intubation and mechanical ventilation on 03/31/2022, status post tracheostomy and PEG tube placement 04/06/2022, for failure to wean from mechanical ventilation. On today's evaluation, the patient remains bronchospastic and wheezy with elevated airway pressures. Blood gases showing an acute abdominal chronic hypoxic and hypercapnic respiratory failure. Chest x-ray findings are stable from yesterday the tracheostomy tube remains in a good location. The blood gases showed improvement and acid base status. The patient's chest x-ray findings are stable. The patient is currently on IV cefepime. The patient is now wean ability this point in time. He is on a pressure control mode of mechanical ventilation. Is extremely weak. Weaning parameters are weak. Bilateral pneumonia and sepsis, secondary to Serratia and Haemophilus. In the most recent sputum culture from 04/13/2022 showed persistent Serratia, afebrile and hemodynamically stable COVID 19 infection confirmed on 04/10/2022 and positive on 04/13/2022 Non-small cell lung cancer with a left hilar mass, diagnosed in December 2021 and the patient was given systemic chemotherapy Acute exacerbation of secondary to above currently intubated on mechanical ventilator Enteral feeding for nutritional support and the patient has a PEG tube in place, the patient is currently on Nepro Previous history of respiratory failure, requiring intubation, and subsequent tracheostomy. Generalized anxiety disorder. The patient is currently on Seroquel and the patient has apparently has been taking Xanax on outpatient basis Severe/stage III/stage IV COPD, with an FEV1 that's 34%. Degenerative joint disease. Acute kidney injury, recovered Acute hyperkalemia secondary to respiratory acidosis, recovered Hyperchloremic hypernatremia, improving and the patient is currently on D5 water, and the sodium level is also normalized. Bilateral cortical parietal ischemic changes, consistent with ischemic stroke, possibly embolic because of the changes being bilateral. Plan: Continue ventilator support Continue with pressure control mode of mechanical ventilation. Change the pressure control to 20 and the meters of water and the rate down to 18 Dear the patient does of Lasix Increase the Seroquel 200 mg twice a day Hold sedation, and use Ativan as needed Monitor mental status Anticoagulation with Eliquis 5 mg by mouth twice a day Daily blood gases Continue enteral feeding for nutritional support, currently on Nepro Continue IV cefepime regarding persistent infection and positive sputum culture with Serratia Modified insulin dose for blood sugar control and the patient's Levemir those will be brought up to 22 units The patient remains essentially the same. Very weak during parameters. No weaning trials. Not a weanable situation at this point in time. difficult to wean based on his advanced COPD, suspect end-stage lung disease and probably the patient may not have any successful weaning in the future. Prognosis poor. This is likely an unweanable case we'll continue to follow make further recommendations based on his progress. This evaluation was done and more than 30 minutes. This is a critically care evaluation. Long-term prognosis poor baseline above-mentioned comorbidities. Time with Patient: Greater than 30
--- NOTE | 2022-04-18 15:54 | P.PN ---
Subjective Progress Note Date: 04/18/22 Principal diagnosis: Possible sepsis with hypotension vs secondary to hypovolemia Acute on chronic hypoxic and hypercapnic respiratory failure Suspect aspiration pneumonia Acute exacerbation of COPD History of squamous cell lung cancer diagnosed on 01/01/2022 71 years old male with past medical history of COPD, Hearing Disorder / Deafness, Hyperlipidemia, Osteoarthritis, lung cancer diagnosed on 11/2021. Patient presents because of dyspnea. Patient currently is been intubated in the ICU and information were obtained from staff, records and family at bedside both and daughter. As per family patient has been having difficulty breathing all the time and yesterday evening around 10 PM started getting worse so he decided to come to emergency room. Patient has not been eating well for the last 2 days he was feeling food stuck in his throat. patient has chronic cough and creamy phlegm. He had chest pain only with coughing. Yesterday was getting into the bathroom when he felt so weak and he had to light on the floor on his knees. Also patient has been complaining of from diarrhea over the last 2 days with 3-4 puffs per day. No vomiting. History of getting chemo and radiotherapy last dose was less than a week ago for his left lung cancer. They think his oncologist is Dr. arauz and radiation oncologist is Dr. Patricia. His senior sql server dba is Dr. Short, and he is on 2 L oxygen via nasal cannula He came through the emergency room and the floor he got worse and acidotic, eventually he was intubated at to the ICU. He got one bolus of normal saline 1000 mL. Distal have low urine output. 04/03/2022 Patient is seen and evaluated in room at bedside; remains in the ICU intubated and mechanically ventilated. His ABG showed a pO2 of 106 pCO2 56 pH of 7.34. Patient remains on 35% FiO2. Patient is off norepinephrine he remains on normal saline at 50 mL an hour and on propofol at 50 mcg/kg/m. Chest x-rays showing slight improvement in his bilateral infiltrates. Left hilar mass remains the same. Hence I have no plans to wean the patient today, and the family has made a decision that the patient does not wean in the next few days, they would like him to proceed with tracheostomy and PEG tube placement and eventual placement. We will decide this early next week in the meantime patient is not related to believe that extubated. CBC is relatively unremarkable WBC 7.3 hemoglobin is 8.8, basic metabolic profile is relatively normal, BUN is 67 creatinine is 1.36 IV fluids increased per geography teacher recommendations No plans for extubation; continue with ventilator support, continue bronchodilator therapy; patient remains on IV Zosyn and Solu-Medrol 04/04/2022 Patient seen and evaluated, remains in the ICU, intubated and mechanically ventilated. ABG showed a pO2 of 69 pCO2 of 67 pH of 7.29. Patient remains on propofol at 50 mcg/kg/m, IV fluid 0.9 normal saline at 75 mL per hour Sputum is coming back positive for Serratia and Haemophilus influenza both are covered with Zosyn. Building Construction Superintendent discussed prognosis and plan of care with the family about possible tracheostomy PEG tube placement PICC line placement and eventual placement and a ventilator facility; option of comfort care measures was discussed. Family seems to be inclined to proceed with tracheostomy and PEG tube placement as well as PICC line placement and eventual transfer to a ventilator facility/selective care specialty. WBC count is 8.8 hemoglobin is 9.7, basic metabolic profile is normal BUN is [address] angio the chest was ordered yesterday, no evidence of pulmonary embolism clinically I never thought that the patient had pulmonary embolism and the clinical presentation is not a presentation of pulmonary embolism. 04/17/2022 Acute on chronic hypoxemic and hypercapnic respiratory failure, status post intubation and mechanical ventilation on 03/31/2022, status post tracheostomy and PEG tube placement 04/06/2022, for failure to wean from mechanical ventilation. On today's evaluation, the patient remains bronchospastic and wheezy with elevated airway pressures. Blood gases showing an acute abdominal chronic hypoxic and hypercapnic respiratory failure. Chest x-ray findings are stable from yesterday the tracheostomy tube remains in a good location. There is evidence of multifocal airspace opacity with a left hilar mass consistent wit h lung cancer. The patient remains on a pressure control mode, the blood gases show chronic hypercapnic respiratory failure and there is significant metabolic alkalosis on the blood work. Repeat sputum sample came back positive for Serratia and the patient has ongoing leukocytosis and pulmonary infiltrates. The patient is covered with IV cefepime. Alert respiratory status remains unchanged since yesterday. There is been improvement in the blood gases and acid base status and the patient's pCO2 is at 81 with a pH of 7.35 consistent with chronic hypoxic and hypercapnic respiratory failure in the field is at 65. Patient remains on pressure control mode of mechanical ventilation. 04/18/2022 Patient remains in ICU and remains intubated; awake this morning On today's blood work, the pH is at 7.43 with a pCO2 of 67 and pO2 of 69 Chest x-ray findings are essentially unchanged. The patient on and off is still requiring Levophed for blood pressure control which is currently running at 6 mg an hour. --The patient is also on Nepro for enteral feeding and nutritional support at the rate of 30 mL an hour. He is afebrile. He remains on Seroquel. Ativan as needed. The white cell count of 16.2 with hemoglobin 9.2. The sodium is 142 with a 51-0.6. No wounds. No sores. Has increased edema in the upper and lower extremities and the patient is third spacing at this point in time. Active site is dry clean and intact. He is on anticoagulation. He is on Eliquis. Cardiac rhythm is sinus. No other significant events otherwise Objective - Vital Signs Vital signs: Vital Signs Temp 98.2 F 04/18/22 08:00 Pulse 87 04/18/22 08:00 Resp 48 H 04/18/22 08:00 BP 145/77 04/18/22 01:00 Pulse Ox 93 L 04/18/22 08:00 FiO2 50 04/18/22 08:00 Intake & Output 04/17/22 04/18/22 04/18/22 18:59 06:59 18:59 Intake Total 1799.400 807.000 108 Output Total 1175 900 225 Balance 624.400 -93.000 -117 Weight 86.5 kg Intake: IV 1343 366 46 Dextrose 5% in Water 1, 1200 100 000 ml @ 100 mls/hr IV . Q10H NES[facility] Rx#:[id number] Lactated ringers 110 20 Sodium Chloride 0.9% 210 40 pressure bag 33 36 6 Intake, IV Titration 96.400 81.000 2 Amount Clevidipine Butyrate 25 96.400 81.000 2 mg In Empty Bag 1 bag @ 1 MG/HR 2 mls/hr IV .Q24H N[facility]HA Rx#:[id number] Tube Feeding 360 300 30 Other 60 30 Output: Urine 1175 900 225 Other: Voiding Method Indwelling Catheter Indwelling Catheter ABP, PAP, CO, CI - Last Documented Arterial Blood Pressure 164/53 - Exam -GENERAL: The patient is alert intubated and sedated HEENT: Pupils are round and equally reacting to light. EOMI. No scleral icterus. No conjunctival pallor. Normocephalic, atraumatic. No pharyngeal erythema. No thyromegaly. CARDIOVASCULAR: S1 and S2 present. No murmurs, rubs, or gallops. PULMONARY: Chest is clear to auscultation, no wheezing or crackles. Decreased air entry bilaterally ABDOMEN: Soft, nontender, nondistended, normoactive bowel sounds. No palpable organomegaly. MUSCULOSKELETAL: No joint swelling or deformity. EXTREMITIES: No cyanosis, clubbing, or pedal edema. NEUROLOGICAL: Gross neurological examination did not reveal any focal deficits. SKIN: No rashes. no petechiae. - Labs CBC & Chem 7: 04/18/22 03:10 04/18/22 03:10 Labs: Abnormal Lab Results - Last 24 Hours (Table) 04/17/22 04/17/22 04/17/22 Range/Units 12:56 17:41 23:12 WBC (3.8-10.6) k/uL RBC (4.30-5.90) m/uL Hgb (13.0-17.5) gm/dL Hct (39.0-53.0) % MCV (80.0-100.0) fL MCHC (31.0-37.0) g/dL RDW (11.5-15.5) % Neutrophils # (1.3-7.7) k/uL Lymphocytes # (1.0-4.8) k/uL ABG pCO2 (35-45) mmHg ABG pO2 (83-108) mmHg ABG HCO3 (21-25) mmol/L ABG Total CO2 (19-24) mmol/L ABG O2 Saturation (94-97) % ABG Hematocrit (34.0-46.0) % Hemoglobin (13.0-17.5) gm/dL Chloride (98-107) mmol/L Carbon Dioxide (22-30) mmol/L BUN (9-20) mg/dL Glucose (74-99) mg/dL POC Glucose (mg/dL) 303 H 335 H 252 H (70-110) mg/dL AST (17-59) U/L Alkaline Phosphatase (38-126) U/L Total Protein (6.3-8.2) g/dL Albumin (3.5-5.0) g/dL 04/18/22 04/18/22 04/18/22 Range/Units 03:10 03:10 05:08 WBC 16.2 H (3.8-10.6) k/uL RBC 3.14 L (4.30-5.90) m/uL Hgb 9.3 L (13.0-17.5) gm/dL Hct 31.5 L (39.0-53.0) % MCV 100.3 H (80.0-100.0) fL MCHC 29.6 L (31.0-37.0) g/dL RDW 19.5 H (11.5-15.5) % Neutrophils # 15.4 H (1.3-7.7) k/uL Lymphocytes # 0.3 L (1.0-4.8) k/uL ABG pCO2 (35-45) mmHg ABG pO2 (83-108) mmHg ABG HCO3 (21-25) mmol/L ABG Total CO2 (19-24) mmol/L ABG O2 Saturation (94-97) % ABG Hematocrit (34.0-46.0) % Hemoglobin (13.0-17.5) gm/dL Chloride 95 L (98-107) mmol/L Carbon Dioxide 43 H* (22-30) mmol/L BUN 51 H (9-20) mg/dL Glucose 223 H (74-99) mg/dL POC Glucose (mg/dL) 208 H (70-110) mg/dL AST 16 L (17-59) U/L Alkaline Phosphatase 140 H (38-126) U/L Total Protein 5.1 L (6.3-8.2) g/dL Albumin 2.4 L (3.5-5.0) g/dL 04/18/22 Range/Units 05:46 WBC (3.8-10.6) k/uL RBC (4.30-5.90) m/uL Hgb (13.0-17.5) gm/dL Hct (39.0-53.0) % MCV (80.0-100.0) fL MCHC (31.0-37.0) g/dL RDW (11.5-15.5) % Neutrophils # (1.3-7.7) k/uL Lymphocytes # (1.0-4.8) k/uL ABG pCO2 67 H (35-45) mmHg ABG pO2 59 L* (83-108) mmHg ABG HCO3 45 H* (21-25) mmol/L ABG Total CO2 47 H (19-24) mmol/L ABG O2 Saturation 92.4 L (94-97) % ABG Hematocrit 28 L (34.0-46.0) % Hemoglobin 9.2 L (13.0-17.5) gm/dL Chloride (98-107) mmol/L Carbon Dioxide (22-30) mmol/L BUN (9-20) mg/dL Glucose (74-99) mg/dL POC Glucose (mg/dL) (70-110) mg/dL AST (17-59) U/L Alkaline Phosphatase (38-126) U/L Total Protein (6.3-8.2) g/dL Albumin (3.5-5.0) g/dL Assessment and Plan Assessment: Acute on chronic hypoxemic and hypercapnic respiratory failure, status post intubation and mechanical ventilation on 03/31/2022, status post tracheostomy and PEG tube placement 04/06/2022, for failure to wean from mechanical ventilation. On today's evaluation, the patient remains bronchospastic and wheezy with elevated airway pressures. Blood gases showing an acute abdominal chronic hypoxic and hypercapnic respiratory failure. Chest x-ray findings are stable from yesterday the tracheostomy tube remains in a good location. There is evidence of multifocal airspace opacity with a left hilar mass consistent with lung cancer. The patient remains on a pressure control mode, the blood gases show chronic hypercapnic respiratory failure and there is significant metabolic alkalosis on the blood work. Repeat sputum sample came back positive for Serratia and the patient has ongoing leukocytosis and pulmonary infiltrates. The patient is covered with IV cefepime. Alert respiratory status remains unchanged since yesterday. There is been improvement in the blood gases and acid base status and the patient's pCO2 is at 81 with a pH of 7.35 consistent with chronic hypoxic and hypercapnic respiratory failure in the field is at 65. Patient remains on pressure control mode of mechanical ventilation. Bilateral pneumonia and sepsis, secondary to Serratia and Haemophilus. In the most recent sputum culture from 04/13/2022 showed persistent Serratia, afebrile and hemodynamically stable COVID 19 infection confirmed on 04/10/2022 and positive on 04/13/2022 Non-small cell lung cancer with a left hilar mass, diagnosed in December 2021 and the patient was given systemic chemotherapy Acute COPD exacerbation Left hilar mass consistent with his history of lung cancer since 11/2021 Acute hypoxic hypercapnic respiratory failure chronic hypoxic respiratory failure Left Lung cancer, undergoing chemoradiotherapy Hearing difficulty Hyperlipidemia Osteoarthritis Elevated troponin, rule out cardiac causes Plan: Continue with intubation and mechanical ventilation pulmonary/critical care unit Continue with steroids and bronchodilators. He was started on Solu-Medrol 60 mg every 6 hours Pulmonary consult Patient will need swallow evaluation when he is extubated Cardiology consult. Continue with normal saline infusion. Bronchodilator. Check pro-calcitonin Give one bolus of normal saline and monitor input and output Labs and medication were reviewed.. Continue same treatment. Continue with symptomatic treatment. Resume home medication. Monitor lytes and vitals. DVT and GI prophylaxis. Further recommendations as per clinical course of the patient DVT prophylaxis: Subcutaneous heparin GI Prophylaxis: Ppi Prognosis is guarded
[2022-04-18 18:16] LABS: Glucose,Whole Blood 180 mg/dL (70-110)
[2022-04-18] MEDS: LORazepam 1 MG/0.5 ML VIAL IV PRN (19:58)
[2022-04-18] MEDS: LATANOPROST 0.005% OPHTH DROPS 2.5 ML BTL BOTH EYES SCH (21:18)
[2022-04-18] MEDS: ATORVASTATIN 10 MG TAB PO SCH (21:18)
[2022-04-18] MEDS: QUEtiapine 100 MG TAB PO SCH (21:21)
[2022-04-18 23:36] LABS: Glucose,Whole Blood 198 mg/dL (70-110)
[2022-04-19] MEDS: CEFEPIME 2 GM in SODIUM CHLORIDE 0.9% 100 ML IVPB SCH ×3 (01:23→17:32)
[2022-04-19] MEDS: ALBUTEROL HFA INHALER INHALATION SCH ×5 (02:46→19:10)
[2022-04-19] MEDS: LORazepam 1 MG/0.5 ML VIAL IV PRN (03:58)
[2022-04-19 04:05] LABS: Anisocytosis Moderate; Basophils % (A) 0 %; Eosinophils % (A) 0 %; HCT 32.7 % (39.0-53.0); HGB 10.1 gm/dL (13.0-17.5); Hypochromasia Marked; Lymphocytes # (A) 0.3 k/uL (1.0-4.8); Lymphocytes % (A) 2 %; MCH 30.4 pg (25.0-35.0); MCHC 30.8 g/dL (31.0-37.0); MCV 98.8 fL (80.0-100.0); Macrocytosis Moderate; Mean Platelet Volume 8.1; Monocytes # (A) 0.6 k/uL (0-1.0); Monocytes % (A) 3 %; Neutrophils # (A) 18.7 k/uL (1.3-7.7); Neutrophils % (A) 95 %; Platelet Count 421 k/uL (150-450); RBC 3.31 m/uL (4.30-5.90); RDW 20.3 % (11.5-15.5); WBC 19.7 k/uL (3.8-10.6)
[2022-04-19] MEDS: CLEVIDIPINE BUTYRATE 25 MG in EMPTY BAG 1 BAG IV SCH ×5 (04:18→19:49)
[2022-04-19 04:25] LABS: ALT 29 U/L (4-49); AST 21 U/L (17-59); African American GFR (CKD) >90 (>60 ml/min/1.73 sqM); Albumin 2.4 g/dL (3.5-5.0); Alkaline Phosphatase 139 U/L (38-126); Blood Urea Nitrogen 59 mg/dL (9-20); Calcium 9.4 mg/dL (8.4-10.2); Chloride 96 mmol/L (98-107); Glucose 177 mg/dL (74-99); Non-African American GFR(CKD) >90 (>60 ml/min/1.73 sqM); Potassium 3.9 mmol/L (3.5-5.1); Sodium 143 mmol/L (137-145); Total Bilirubin 0.2 mg/dL (0.2-1.3)
[2022-04-19 04:32] LABS: Anion Gap 5 mmol/L
[2022-04-19 04:54] LABS: Carbon Dioxide 42 mmol/L (22-30)
[2022-04-19 05:02] LABS: ABG Hematocrit 31 % (34.0-46.0); ABG Oxygen Saturation 92.5 % (94-97); ABG PCO2 70 mmHg (35-45); ABG PH 7.42 (7.35-7.45); ABG PO2 63 mmHg (83-108); ABG TCO2 48 mmol/L (19-24)
[2022-04-19 05:06] LABS: Glucose,Whole Blood 182 mg/dL (70-110)
[2022-04-19 05:14] LABS: ABG HCO3 45 mmol/L (21-25); Allen Test Performed? no
[2022-04-19] MEDS: methylPREDNISolone SOD SUCCI 125 MG/2 ML VIAL IV SCH ×4 (05:22→23:59)
[2022-04-19] MEDS: INSULIN ASPART (NovoLOG) 100 UNIT/ML VIAL SQ SCH ×6 (05:23→17:32)
[2022-04-19] MEDS ORDERED: POTASSIUM BICARBONATE/CIT AC 20 MEQ TABLET.EFF NG-TUBE SCH (06:00)
[2022-04-19] MEDS: INSULIN DETEMIR (LEVEMIR) 100 UNIT/ML SYR SQ SCH (06:32)
--- NOTE | 2022-04-19 07:16 | XR ---
EXAMINATION TYPE: XR chest 1V portable DATE OF EXAM: 04/19/2022 6:01 AM COMPARISON: Chest radiographs from 04/18/2022 TECHNIQUE: XR chest 1V portable Frontal view of the chest. CLINICAL INDICATION:Male, 71 years old with history of COPD; FINDINGS: Tracheostomy tube noted. There is a left-sided PICC line in stable position with atherosclerotic preciado ge aorta. Diffuse emphysematous changes with unchanged bibasilar patchy infiltrates. No sizable pleur al effusion. No pneumothorax. Left hilar mass again seen. IMPRESSION: 1. Similar patchy bilateral infiltrates in the lung bases. 2. COPD changes with left hilar mass redemonstrated.
[2022-04-19] MEDS: SYMBICORT 160-4.5 MCG INHALER INHALATION SCH ×2 (09:13→19:16)
--- NOTE | 2022-04-19 09:13 | P.PN ---
Subjective Progress Note Date: 04/19/22 On today's evaluation of a 04/12, the patient is being seen for a follow- up. This patient has advanced COPD with a baseline FEV1 of 34% of predicted and currently is on a mechanical ventilator. He was intubated on 02/28/2022 and he was given a tracheostomy tube and a PEG tube on 03/06/2022. The patient has a Bivona tracheostomy tube #7. The patient is currently off sedation. He is receiving Dilaudid 1 mg every 2-3 hours when necessary basis in addition to Seroquel 50 mg by mouth 3 times a day. He has been taken off propofol for now. He is arousable and follows some simple commands. He is still having labored breathing. This morning, he was tachypneic and he was at times double stacking his breath. He was on a VC plus mode of mechanical ventilation at the rate of 20 with a tidal volume of 450 with an FiO2 of 65% with a PEEP of 5. The peak airway pressure is elevated at 42. The static pressure is 24. The patient remains bronchospastic and wheezy. Respiratory secretions are still active and previous cultures have shown a combination of Serratia and Haemophilus influenza and this is cultures based on the one done on 03/24/2022. The blood gases from today shows a pH of 7.31 with a pCO2 of 88 and pO2 of 71. The patient is afebrile. The white cell count is at 4.4 with a hemoglobin of 8 and a platelet count of 391. Sodium is at 142 with a potassium level of 5.3 chloride is 96 bicarb is 41 with a mean of 46 and a creatinine of 0.9. The fluid balance is positive for on 60 mL over the past 24 hours. The patient is receiving vitals H P at the rate of 63 mL an hour. No other significant events overnight. His blood pressure remains elevated and the patient remains on Cleviprex running at 20 mg an hour for blood pressure control. 04/13/2022, patient is being seen for a follow-up. The patient remains on a mechanical ventilator. He is quite tachypneic and the patient is asynchronous the mechanical ventilator and this morning is having excess amount of leak on the tracheostomy tube. Based on that, I personally tube another centimeter and with repositioning, the leaks improved and the patient was switched to a pressure control mode of mechanical ventilation. Earlier to that, the patient was an assist-control mode of mechanical ventilation, volume cycle and the patient was on a tidal volume of 300 with a rate of seen and FiO2 of 70% with a fecal 5. Morning blood gases showed a pH of 7.08 with a pCO2 of 120 and pO2 of 73. Based on that, the ventilator setting was changed to a pressure control mode mechanical ventilation. The chest x-ray showing diffuse bilateral pulmonary infiltrates with worsening in the left perihilar pulmonary infiltrate in the left lower lobe pulmonary infiltrate and the patient has multifocal airspace disease. The left hilar mass was again demonstrated. There is no evidence of any pneumothorax. Tracheostomy tube is in a good location the patient had background COPD. Hemodynamically, the patient's blood pressure is under better control and the patient is currently off Cleviprex. The patient is currently on a combination of Norvasc and clonidine which is controlled his blood pressure more effectively. He is receiving enteral feeding for nutritional support and his on vital 83 at the rate of 30 mL an hour. In terms of sedation, the patient is receiving propofol. He is on a combination of Seroquel, Dilaudid and Ativan for now all of them are being given [id number]. He withdraws only to deep painful stimulation. Does not follow any commands.. The has been on bronchodilators and is also on IV Solu Medrol dose of 60 mg every 6 hours. Extensively bronchospastic and weak. The white cell count of 13.7 and hemoglobin at 8.6 and a platelet count of 423. Sodium is 146 with a potassium level of 6 and elevation of the potassium level is probably related to the respiratory acidosis. Serum bicarbonate 47.. With a BUN of 58 and a creatinine of 0.7. 04/14/2022, patient is being seen for a follow-up. This morning, the patient is adequately sedated. He grimaces to painful stimulation. Receiving a combination of Dilaudid and Ativan. He remains on a pressure control mode of mechanical ventilation. INR is still having leaks around the tracheostomy tube. More air was placed in the tracheostomy tube balloon and this eliminated air leak. He is currently on a pressure control mode and he is at a rate of 22, pressure control of 25 cm of water with a FiO2 of 70% and a PEEP of 5. Blood gases from today shows a pH of 7.25 with a pCO2 of 115 and a few to 109. Note that after eliminating the air leak, repeat blood gases was done and the patient was found to have a pH of 7.34 with a pCO2 of 11 and pO2 of 78. The patient is still bronchospastic and wheezy at this point in time. From today repeat chest x-ray showed COPD and patchy bilateral pulmonary infiltrates with a left hilar. The patient is ventilator dependent. Atelectatic discussion with the family yesterday and wanted to proceed with ongoing treatment with understanding that the patient's aunts of coming off the mechanical ventilator extremely low on 4. Hemodynamically stable and the patient is still receiving enteral feeding for nutritional support. On his blood work, potassium level was at 5.9 and the patient was given 2 doses of sodium bicarb and repeat potassium level is to be obtained. Meanwhile, the white cell count of 10.7 with a hemoglobin of 8.8 and a platelet count of 430. The patient has sodium level of 48 with a potassium level of 5.9 and a serum bicarbonate was 48. Repeat potassium came down to 5.4. No other significant events. The patient continued to receive enteral feeding for nutritional support and the patient is receiving vital HP. No abdominal distention. No nausea or vomiting. No other significant events overnight. 04/15/2022, the patient remains on a mechanical ventilator. Neurologically, the patient remains quite obtunded and is not following any commands. He grimaces to painful stimulation. He was being given a combination of Dilaudid and Ativan. He does not follow any commands. His breathing is labored even while on the mechanical ventilator on a pressure control mode. He tries to triggered event with chest wall movements and he is unable to do so. He is breathing effort remains quite weak and is probably along the lines of his advanced end- stage lung disease. Based on his underlying mentation which is still impaired, I made recommendations to stop all sedations and proceed with a CAT scan of the brain. He remains on a pressure control mode of mechanical ventilation at the rate of 22 with a pressure control of 25 and FiO2 of 70% and PEEP of 5 on the morning blood gases was favorable with a pH of 7.42 and a pO2 of 88 and pO2 of 85 and this was on FiO2 of 60%. His blood work electrolytes from today show a sodium level of 150 with a INR of 65 and a creatinine of 0.6. Potassium level is at 5 and a serum bicarbonate of 50. The white cell count 10.7 with hemoglobin 8.2 and the chest x-ray from today shows a left hilar mass, COPD, improved aeration suggestive of resolving infiltrates. No respiratory secretions. No leak from the tracheostomy tube. The patient continued to receive enteral feeding for nutritional support and he is able to tolerate a diet without any major difficulties. No regurgitation. No aspiration. No abdominal distention. No fever or chills. He remains on IV Solu-Medrol in addition to bronchodilators. He has been diagnosed having positive COVID 19 04/16/2022, on seeing the patient for a follow-up. The patient is currently off sedation patient seems to be more interactive as the patient is opening his eyes at times spontaneously and I was told that he was able to follow some simple commands. Overall, he is extremely weak and he has been raising his eyebrows and wiggling his toes upon command. This is not a consistent response however. Due to his underlying mental status condition, I did a CAT scan of the brain and this was followed up by CT angiogram. Note that the patient was found to have some ischemic changes in the parietal areas bilaterally. Based on that, a neurologic consultation was requested and short of a PE, we decided to evaluate this patient and patient is currently on anti-correlation with Eliquis 5 mg by mouth twice a day. Suspect possible embolic stroke. Meanwhile, the patient remains on a mechanical ventilator. Today he is on on pressure control mode of mechanical ventilation with a rate of 22, pressure control of 26, FiO2 of 50% with a PEEP of 5. His chest x-ray findings are unchanged. His sputum was positive for Serratia and the patient wasn't found at 17.3. Based on that the patient will be started back on antibiotics. Insulin is at 9 with a platelet count of 451. The blood gas showed a pH of 7.41 with a pCO2 of 76 and pO2 of 86. The patient was also given D5 water regarding hyperchloremic hypernatremia. Sodium level is down to 148 and a serum bicarbonate 47 and the patient is also receiving Diamox. He is a 50 with a creatinine of 0.8 and a potassium level is at 4.0. The patient continues to receive enteral feeding for nutritional support with Nepro at the rate of 30 an hour. Urine output is adequate for now. 04/17/2022, the patient the patient is being seen for a follow-up. Mental status has become an ongoing issue as the patient becomes quite agitated and restless and anxious while off sedation. He was given Precedex and this has been used on and off during the day currently is off Precedex. However earlier this morning, he was following commands and these are essentially simple commands and the patient was getting anxious anesthetized with a mechanical ventilator. Based on that, the patient was given Ativan 1 mg IV and at the time of my evaluation the patient was doing better and he was more synchronous. He continues to have shallow breathing, he tries to make respiratory efforts above the mechanical ventilator and is unable to check that every breath. He remains on a pressure control at the rate of 22 with a pressure control of 26 cm of water and FiO2 of 40% and PEEP of 5. The chest x-ray findings are essentially unchanged repeat chest x-ray is to be done today. Meanwhile, the patient was restarted back on IV cefepime and the patient was found to have again Serratia and his sputum. The patient has a white cell count of 15.3 with a hemoglobin of 8.3. The blood gases from today shows a pH of 7.35 with a pCO2 of 81 and pO2 of 65. Serum bicarbonate is on 41 and the patient was receiving Diamox 250 mg IV every 12 hours. Overall fluid balance is +669 mL over the past 24 hours. The patient is receiving enteral feeding for nutritional support. The patient was also started on anticoagulation with Eliquis upon request of the neurologist. No fever. No diarrhea. No other significant events otherwise for now. Extremely debilitated with extremely low chances of weaning from the mechanical ventilator. 04/18/2022, the patient is awake yet extremely weak and debilitated barely able to move his eyebrows and toes on demand. Breathing seems to be started as the patient try to trigger the ventilator and uses abdominal and chest wall muscles to initiated breath on a mechanical ventilator. These are ineffective and unable to trigger the mechanical ventilator at all times. Meanwhile, the patient remains on a pressure control mode of mechanical ventilation. The pressure control is currently at the rate of 22 with a pressure control of 26 cm of water and FiO2 of 40% with a PEEP of 5. The patient's blood gas shows improvement and acid base status. On today's blood work, the pH is at 7.43 with a pCO2 of 67 and pO2 of 69 and there is improvement and acid base status. The patient is doing well otherwise. No significant respiratory secretions of the chest x-ray findings are essentially unchanged. The patient on and off is still requiring Levophed for blood pressure control which is currently running at 6 mg an hour. The patient is also on Nepro for enteral feeding and nutritional support at the rate of 30 mL an hour. He is afebrile. He remains on Seroquel. Ativan as needed. The white cell count of 16.2 with hemoglobin 9.2. The sodium is 142 with a 51-0.6. No wounds. No sores. Has increased edema in the upper and lower extremities and the patient is third spacing at this point in time. Active site is dry clean and intact. He is on anticoagulation. He is on Eliquis. Cardiac rhythm is sinus. No other significant events otherwise for now. He is now wean embolism patient was placed on a pressure support mode of mechanical ventilation and is generated tidal volume was extremely weak and he was ready tachypneic with a respiratory rate of about 40 on spontaneous mode of mechanical ventilation. 04/19/2022, the patient intermittently follows commands and his condition is essentially same as yesterday without any major changes. At times, he follows simple commands such as raising his eyebrows or wiggling his toes. He is only receiving Ativan. No others IV sedation for now. He is also on 100 mg of Seroquel twice a day. He remains on a mechanical ventilator on a pressure control at the rate of 18 with a pressure control of 20 FiO2 of 40% with a PEEP of 5. Rest or secretions are still active and the patient is being suctioned adequately. He is on IV cefepime as the patient was Serratia marcescens in his sputum. Chest x-ray from today is essentially the same. Tracheostomy tube is in a good location. The patient remains hemodynamically stable. Patient is bronchodilators and patient remains on steroids. He is on IV Solu Medrol 60 mg every 6 hours. Blood gases from today shows a pH of 7.42 with a pCO2 of 69 and pO2 of 62. He was having significant amount of third spacing and edema. He was given a dose of Lasix yesterday with adequate diuresis. His net fluid balance is -1.4 L since yesterday. He continues to receive enteral feeding and the patient is currently on Nepro at the rate of 27 mL an hour. His cardiac rhythm remains sinus. He remains on anticoagulation with Eliquis. The main issue for now this is generalized debility and advanced lung disease. His mentation is also poor and the patient is extremely weak which obviously is affecting his further weaning process. Meanwhile, the patient's chest x-ray from today is essentially clear and tracheostomy tube is in a good location. On and off, the patient developed some leak around the tracheostomy tube requiring more air in the balloon. Labs from today shows a sodium level of 143, potassium level is at 3.9, serum bicarbonate of 42 with a in a 59 and creatinine 0.6. The white cell count is at 19.7 with a hemoglobin of 10.1. Objective - Vital Signs Vital signs: Vital Signs Temp 97.7 F 04/19/22 04:00 Pulse 78 04/19/22 07:00 Resp 20 04/19/22 07:00 BP 145/77 04/18/22 01:00 Pulse Ox 90 L 04/19/22 07:00 FiO2 40 04/19/22 04:00 Intake & Output 04/18/22 04/19/22 04/19/22 18:59 06:59 18:59 Intake Total 705.933 738.467 94.8 Output Total 1974 75 Balance -1269.067 -186.533 19.8 Weight 86.5 kg 84.3 kg Intake: IV 276 276 23 Sodium Chloride 0.9% 240 240 20 pressure bag 36 36 3 Intake, IV Titration 72.933 78.467 44.8 Amount Clevidipine Butyrate 25 72.933 78.467 44.8 mg In Empty Bag 1 bag @ 1 MG/HR 2 mls/hr IV .Q24H [facility] Rx#:[id number] Tube Feeding 327 324 27 Other 30 60 Output: Urine 1974 Other: Voiding Method Indwelling Catheter Indwelling Catheter # Bowel Movements 1 ABP, PAP, CO, CI - Last Documented Arterial Blood Pressure 160/50 - Exam Very much debilitated, weak, cachectic, responsive and he follows only simple commands such as wiggling his toes and moves his eyes and eyebrows. He seems to be also having some labored breathing as the patient uses chest wall muscles to initiate or triggering the mechanical ventilator. He has a barrel chest. Head exam was generally normal. There was no scleral icterus or corneal arcus. Mucous membranes were moist. HEENT examination is grossly unremarkable. Tracheostomy site is dry clean and intact and the patient has a Bivona tracheostomy tube in place Neck supple. Full range of motion. No adenopathy thyromegaly or neck vein distention. Cardiovascular examination reveals regular rhythm rate. S1-S2 normal. No S3 or S4. No discernible murmur noted. Heart sounds are distant. Lungs reveal scattered bilateral rhonchi. Breath sounds equal bilaterally wheezes. No crackles. Abdomen soft bowel sounds are heard. No masses or tenderness. PEG tube noted. Examination of the extremities revealed easily palpable radial, femoral and pedal pulses. There was no cyanosis, clubbing or edema. Examination of the skin revealed no evidence of significant rashes, suspicious appearing nevi or other concerning lesions. Neurologic examination ; The patient is apparently following simple commands today. He is quite obtunded and he grimaces to painful stimulation.. He is able to withdraw the patient was some additional 4 extremities. Pupils are equal and reactive to light. - Labs CBC & Chem 7: 04/19/22 03:40 04/19/22 03:40 Labs: Abnormal Lab Results - Last 24 Hours (Table) 04/18/22 04/18/22 04/18/22 Range/Units 11:38 18:14 23:35 WBC (3.8-10.6) k/uL RBC (4.30-5.90) m/uL Hgb (13.0-17.5) gm/dL Hct (39.0-53.0) % MCHC (31.0-37.0) g/dL RDW (11.5-15.5) % Neutrophils # (1.3-7.7) k/uL Lymphocytes # (1.0-4.8) k/uL ABG pCO2 (35-45) mmHg ABG pO2 (83-108) mmHg ABG HCO3 (21-25) mmol/L ABG Total CO2 (19-24) mmol/L ABG O2 Saturation (94-97) % ABG Hematocrit (34.0-46.0) % Hemoglobin (13.0-17.5) gm/dL Chloride (98-107) mmol/L Carbon Dioxide (22-30) mmol/L BUN (9-20) mg/dL Glucose (74-99) mg/dL POC Glucose (mg/dL) 235 H 180 H 198 H (70-110) mg/dL Alkaline Phosphatase (38-126) U/L Total Protein (6.3-8.2) g/dL Albumin (3.5-5.0) g/dL 04/19/22 04/19/22 04/19/22 Range/Units 03:40 03:40 05:00 WBC 19.7 H (3.8-10.6) k/uL RBC 3.31 L (4.30-5.90) m/uL Hgb 10.1 L (13.0-17.5) gm/dL Hct 32.7 L (39.0-53.0) % MCHC 30.8 L (31.0-37.0) g/dL RDW 20.3 H (11.5-15.5) % Neutrophils # 18.7 H (1.3-7.7) k/uL Lymphocytes # 0.3 L (1.0-4.8) k/uL ABG pCO2 70 H (35-45) mmHg ABG pO2 63 L (83-108) mmHg ABG HCO3 45 H* (21-25) mmol/L ABG Total CO2 48 H (19-24) mmol/L ABG O2 Saturation 92.5 L (94-97) % ABG Hematocrit 31 L (34.0-46.0) % Hemoglobin 10.0 L (13.0-17.5) gm/dL Chloride 96 L (98-107) mmol/L Carbon Dioxide 42 H* (22-30) mmol/L BUN 59 H (9-20) mg/dL Glucose 177 H (74-99) mg/dL POC Glucose (mg/dL) (70-110) mg/dL Alkaline Phosphatase 139 H (38-126) U/L Total Protein 5.0 L (6.3-8.2) g/dL Albumin 2.4 L (3.5-5.0) g/dL 04/19/22 Range/Units 05:04 WBC (3.8-10.6) k/uL RBC (4.30-5.90) m/uL Hgb (13.0-17.5) gm/dL Hct (39.0-53.0) % MCHC (31.0-37.0) g/dL RDW (11.5-15.5) % Neutrophils # (1.3-7.7) k/uL Lymphocytes # (1.0-4.8) k/uL ABG pCO2 (35-45) mmHg ABG pO2 (83-108) mmHg ABG HCO3 (21-25) mmol/L ABG Total CO2 (19-24) mmol/L ABG O2 Saturation (94-97) % ABG Hematocrit (34.0-46.0) % Hemoglobin (13.0-17.5) gm/dL Chloride (98-107) mmol/L Carbon Dioxide (22-30) mmol/L BUN (9-20) mg/dL Glucose (74-99) mg/dL POC Glucose (mg/dL) 182 H (70-110) mg/dL Alkaline Phosphatase (38-126) U/L Total Protein (6.3-8.2) g/dL Albumin (3.5-5.0) g/dL Assessment and Plan Plan: Acute on chronic hypoxemic and hypercapnic respiratory failure, status post intubation and mechanical ventilation on 03/31/2022, status post tracheostomy and PEG tube placement 04/06/2022, for failure to wean from mechanical ventilation. On today's evaluation, the patient remains bronchospastic and wheezy with elevated airway pressures. Blood gases showing an acute abdominal chronic hypoxic and hypercapnic respiratory failure. Chest x-ray findings are stable from yesterday the tracheostomy tube remains in a good location. The blood gases showed improvement and acid base status. The patient's chest x-ray findings are stable. The patient is currently on IV cefepime. The patient is now wean ability this point in time. He is on a pressure control mode of mechanical ventilation. Is extremely weak. Weaning parameters are weak. The patient's chest x-ray is adequate and that is no evidence of any pulmonary infiltrates. He remains on IV cefepime. No signs of any acute ischemia for now and the Serratia in his sputum is still being treated with IV cefepime. Bilateral pneumonia and sepsis, secondary to Serratia and Haemophilus. In the most recent sputum culture from 04/13/2022 showed persistent Serratia, afebrile and hemodynamically stable COVID 19 infection confirmed on 04/10/2022 and positive on 04/13/2022 Non-small cell lung cancer with a left hilar mass, diagnosed in December 2021 and the patient was given systemic chemotherapy Acute exacerbation of secondary to above currently intubated on mechanical ventilator Enteral feeding for nutritional support and the patient has a PEG tube in place, the patient is currently on Nepro Previous history of respiratory failure, requiring intubation, and subsequent tracheostomy. Generalized anxiety disorder. The patient is currently on Seroquel and the patient has apparently has been taking Xanax on outpatient basis Severe/stage III/stage IV COPD, with an FEV1 that's 34%. Degenerative joint disease. Acute kidney injury, recovered Acute hyperkalemia secondary to respiratory acidosis, recovered Hyperchloremic hypernatremia, improving and the patient is currently on D5 water, and the sodium level is also normalized. Bilateral cortical parietal ischemic changes, consistent with ischemic stroke, possibly embolic because of the changes being bilateral. Plan: Continue ventilator support Continue with pressure control mode of mechanical ventilation. The patient is on a pressure control of 20 with a rate of 18 and FiO2 of 40% with a PEEP of 5 Seroquel 100 mg twice a day Hold sedation, and use Ativan as needed Monitor mental status Anticoagulation with Eliquis 5 mg by mouth twice a day Daily blood gases Continue enteral feeding for nutritional support, currently on Nepro Continue IV cefepime regarding persistent infection and positive sputum culture with Serratia Modified insulin dose for blood sugar control and the patient's Levemir those will be brought up to 22 units The patient remains essentially the same. Very weak during parameters. No weaning trials. Not a weanable situation at this point in time. The patient continues to have third spacing. The patient will be receiving anot her dose of Lasix 40 mg IV and will monitor his acid base status very closely. Most recent pH is at 7.42 with a pCO2 of 69. The serum bicarb on the blood work is 45. I would given a dose of Diamox to 50 mg IV along with Lasix 40 mg IV. Nevertheless, this is not going to change the patient's prognosis essentially poor. difficult to wean based on his advanced COPD, suspect end-stage lung disease and probably the patient may not have any successful weaning in the future. Prognosis poor. This is likely an unweanable case we'll continue to follow make further recommendations based on his progress. This evaluation was done and more than 30 minutes. This is a critically care evaluation. Long-term prognosis poor baseline above-mentioned comorbidities. Time with Patient: Greater than 30
[2022-04-19] MEDS ORDERED: FUROSEMIDE 10 MG/ML 4 ML VIAL IV STA (09:14)
[2022-04-19] MEDS: GABAPENTIN 300 MG CAP PO SCH ×3 (09:50→20:55)
[2022-04-19] MEDS: PANTOPRAZOLE 40 MG/10 ML VIAL IVP SCH (09:50)
[2022-04-19] MEDS: CHLORHEXIDINE GLUCONATE 15 ML CUP MUCOUS MEM SCH ×2 (09:50→20:55)
[2022-04-19] MEDS: APIXABAN 5 MG TAB PO SCH ×2 (09:51→20:55)
[2022-04-19] MEDS: CHOLECALCIFEROL 25 MCG (1000 IU) TABLET PO SCH (09:51)
[2022-04-19] MEDS: QUEtiapine 100 MG TAB PO SCH ×2 (09:51→20:55)
[2022-04-19] MEDS: amLODIPine 10 MG TAB PO SCH (09:51)
[2022-04-19 11:51] LABS: Glucose,Whole Blood 188 mg/dL (70-110)
[2022-04-19] MEDS: NOREPINEPHRINE 4 MG in SODIUM CHLORIDE 0.9% 250 ML IV SCH (11:53)
[2022-04-19 17:28] LABS: Glucose,Whole Blood 175 mg/dL (70-110)
[2022-04-19] MEDS: ATORVASTATIN 10 MG TAB PO SCH (20:55)
[2022-04-19] MEDS: LATANOPROST 0.005% OPHTH DROPS 2.5 ML BTL BOTH EYES SCH (20:55)
--- NOTE | 2022-04-19 23:04 | P.PN ---
Subjective From the records This is a pleasant 71 years old male with past medical history of COPD, Hearing Disorder / Deafness, Hyperlipidemia, Osteoarthritis, lung cancer diagnosed on 11/2021. Patient presents because of dyspnea. Patient currently is been intubated in the ICU and information were obtained from staff, records and family at bedside both and daughter. As per family patient has been having difficulty breathing all the time and yesterday evening around 10 PM started getting worse so he decided to come to emergency room. Patient has not been eating well for the last 2 days he was feeling food stuck in his throat. patient has chronic cough and creamy phlegm. He had chest pain only with coughing. Yesterday was getting into the bathroom when he felt so weak and he had to light on the floor on his knees. Also patient has been complaining of from diarrhea over the last 2 days with 3-4 puffs per day. No vomiting. History of getting chemo and radiotherapy last dose was less than a week ago for his left lung cancer. They think his oncologist is Dr. arauz and radiation oncologist is Dr. Patricia. His tyre retreader is Dr. Short, and he is on 2 L oxygen via nasal cannula He came through the emergency room and the floor he got worse and acidotic, eventually he was intubated at to the ICU. He got one bolus of normal saline 1000 mL. Distal have low urine output. 04/19/2022 Patient remains moderate team were following the case closely with several attempts to wean him were unsuccessful. Pulmonary/critical care team help with and management. He has WBC of 19.7, hemoglobin 10. Glucose controlled. He is still slightly tachypneic at 24 and mildly hypoxic around 88 2-90 on FiO2 of 40% Sputum culture is growing Haemophilus influenza and circumflex pressure medicines and currently is on IV cefepime area Other medication including Eliquis 5 mg, Levemir 22 units and NovoLog 6 units every 6 hours as well as Solu-Medrol 40 mg Review of systems: N/a Patient could not provide information Active Medications Generic Name Dose Route Start Last Admin Trade Name Freq PRN Reason Stop Dose Admin Albuterol Sulfate 2 puff 04/12/22 12:00 04/19/22 19:10 Albuterol Hfa Inhaler INHALATION 2 puff RT-Q4H NESHA Administration Amlodipine Besylate 10 mg 04/12/22 09:00 04/19/22 09:51 Amlodipine 10 Mg Tab PO 10 mg DAILY NESHA Administration Apixaban 5 mg 04/16/22 13:00 04/19/22 20:55 Apixaban 5 Mg Tab PO 5 mg BID NESHA Administration Protocol Atorvastatin Calcium 10 mg 04/01/22 00:45 04/19/22 20:55 Atorvastatin 10 Mg Tab PO 10 mg HS NESHA Administration Budesonide/Formoterol Fumarate 2 puff 04/12/22 20:00 04/19/22 19:16 Symbicort 160-4.5 Mcg Inhaler INHALATION 2 puff RT-BID NESHA Administration Chlorhexidine Gluconate 15 ml 04/01/22 09:00 04/19/22 20:55 Chlorhexidine Gluconate 15 Ml Cup MUCOUS MEM 15 ml BID NESHA Administration Cholecalciferol 50 mcg 04/01/22 09:00 04/19/22 09:51 Cholecalciferol 25 Mcg (1000 Iu) Tablet PO 50 mcg DAILY NESHA Administration Clonidine HCl 1 patch 04/16/22 20:00 04/16/22 20:23 Clonidine 0.2 Mg/24hr Patch TRANSDERM 1 patch Q7D NESHA Administration Dextrose/Water 50 ml 04/01/22 07:15 Dextrose 50% Syringe 50 Ml IVP PER PROTOCOL PRN Hypoglycemia Protocol Gabapentin 300 mg 04/01/22 00:45 04/19/22 20:55 Gabapentin 300 Mg Cap PO 300 mg TID NESHA Administration Hydromorphone HCl 1 mg 04/14/22 10:57 04/18/22 01:58 Hydromorphone 1 Mg/Ml 1 Ml Syringe IVP 1 mg Q2HR PRN Administration Pain Propofol 1,000 mg/ IV Solution 100 mls @ 2.041 mls/hr 04/01/22 03:30 04/19/22 03:24 IV Not Given .Q24H NESHA Protocol 5 MCG/KG/MIN Norepinephrine Bitartrate 4 mg 254 mls @ 14.63 mls/hr 04/06/22 11:15 04/19/22 11:53 / Sodium Chloride IV Not Given .[id number] NESHA Protocol 0.05 MCG/KG/MIN Clevidipine 25 mg/ IV Solution 50 mls @ 2 mls/hr 04/10/22 09:30 04/19/22 22:06 IV 2 mg/hr .Q24H NESHA 4 mls/hr Titration Protocol 1 MG/HR Cefepime HCl 2 gm/ Sodium 100 mls @ 25 mls/hr 04/16/22 10:00 04/19/22 17:32 Chloride IVPB 25 mls/hr Q8H NESHA Administration Protocol Insulin Aspart 0 unit 04/08/22 18:00 04/19/22 17:32 Insulin Aspart (Novolog) 100 Unit/Ml Vial SQ 1 unit Q6HR NESHA Administration Protocol Insulin Aspart 6 unit 04/11/22 18:00 04/19/22 17:32 Insulin Aspart (Novolog) 100 Unit/Ml Vial SQ 6 unit Q6H NESHA Administration Insulin Detemir 22 unit 04/18/22 07:00 04/19/22 06:32 Insulin Detemir (Levemir) 100 Unit/Ml Syr SQ 22 unit DAILY@0700 NESHA Administration Latanoprost 1 drops 04/01/22 00:32 04/19/22 20:55 Latanoprost 0.005% Ophth Drops 2.5 Ml Btl BOTH EYES 1 drops HS NESHA Administration Lorazepam 1 mg 04/14/22 12:23 04/19/22 03:58 Lorazepam 1 Mg/0.5 Ml Vial IV 1 mg TID PRN Administration Anxiety Methylprednisolone Sodium Succinate 60 mg 04/12/22 12:00 04/19/22 17:32 Methylprednisolone Sod Succi 125 Mg/2 Ml Vial IV 60 mg Q6HR NESHA Administration Miscellaneous Information 1 each 04/17/22 05:34 Potassium Replacement Protocol 1 Each Misc MISCELLANE DAILY PRN Per Protocol Protocol Naloxone HCl 0.2 mg 03/31/22 22:30 Naloxone 0.4 Mg/Ml 1 Ml Vial IV Q2M PRN Opioid Reversal Pantoprazole Sodium 40 mg 04/02/22 09:00 04/19/22 09:50 Pantoprazole 40 Mg/10 Ml Vial IVP 40 mg DAILY NESHA Administration Quetiapine Fumarate 100 mg 04/18/22 21:00 04/19/22 20:55 Quetiapine 100 Mg Tab PO 100 mg BID NESHA Administration Ropinirole HCl 0.5 mg 04/01/22 00:45 04/19/22 20:55 Ropinirole Hcl 0.25 Mg Tab PO 0.5 mg HS NESHA Administration Sodium Chloride 10 ml 04/09/22 13:54 Sodium Chloride 0.9% Flush 10 Ml Syringe IV Q4HR PRN PICC Line Sodium Chloride 10 ml 04/16/22 09:00 04/16/22 08:02 Sodium Chloride 0.9% Flush 10 Ml Syringe IV 10 ml WEEKLY NESHA Administration Sodium Chloride 20 ml 04/09/22 13:54 Sodium Chloride 0.9% Flush 10 Ml Syringe IV Q4HR PRN PICC Line Objective - Vital Signs Vital signs: Vital Signs Temp 98.1 F 04/19/22 08:00 Pulse 80 04/19/22 09:00 Resp 28 H 04/19/22 09:00 BP 145/77 04/18/22 01:00 Pulse Ox 89 L 04/19/22 09:00 FiO2 40 04/19/22 09:13 Intake & Output 04/18/22 04/19/22 04/19/22 18:59 06:59 18:59 Intake Total 705.933 738.467 151.734 Output Total 1975 925 75 Balance -1269.067 -186.533 76.734 Weight 86.5 kg 84.3 kg Intake: IV 276 276 23 Sodium Chloride 0.9% 240 240 20 pressure bag 36 36 3 Intake, IV Titration 72.933 78.467 101.734 Amount Clevidipine Butyrate 25 72.933 78.467 101.734 mg In Empty Bag 1 bag @ 1 MG/HR 2 mls/hr IV .Q24H [facility] Rx#:[id number] Tube Feeding 327 324 27 Other 30 60 Output: Urine 1975 925 75 Other: Voiding Method Indwelling Catheter Indwelling Catheter # Bowel Movements 1 ABP, PAP, CO, CI - Last Documented Arterial Blood Pressure 164/48 - Exam -GENERAL: The patient is on mechanical ventilation HEENT: Pupils are round and equally reacting to light. EOMI. No scleral icterus. No conjunctival pallor. Normocephalic, atraumatic. No pharyngeal erythema. No thyromegaly. CARDIOVASCULAR: S1 and S2 present. No murmurs, rubs, or gallops. -PULMONARY: Chest is clear to auscultation, no wheezing . Bilateral crepitation ABDOMEN: Soft, nontender, nondistended, normoactive bowel sounds. No palpable organomegaly. MUSCULOSKELETAL: No joint swelling or deformity. EXTREMITIES: No cyanosis, clubbing, or pedal edema. NEUROLOGICAL: Gross neurological examination did not reveal any focal deficits. SKIN: No rashes. no petechiae. - Labs CBC & Chem 7: 04/19/22 03:40 04/19/22 03:40 Labs: Abnormal Lab Results - Last 24 Hours (Table) 04/18/22 04/18/22 04/18/22 Range/Units 11:38 18:14 23:35 WBC (3.8-10.6) k/uL RBC (4.30-5.90) m/uL Hgb (13.0-17.5) gm/dL Hct (39.0-53.0) % MCHC (31.0-37.0) g/dL RDW (11.5-15.5) % Neutrophils # (1.3-7.7) k/uL Lymphocytes # (1.0-4.8) k/uL ABG pCO2 (35-45) mmHg ABG pO2 (83-108) mmHg ABG HCO3 (21-25) mmol/L ABG Total CO2 (19-24) mmol/L ABG O2 Saturation (94-97) % ABG Hematocrit (34.0-46.0) % Hemoglobin (13.0-17.5) gm/dL Chloride (98-107) mmol/L Carbon Dioxide (22-30) mmol/L BUN (9-20) mg/dL Glucose (74-99) mg/dL POC Glucose (mg/dL) 235 H 180 H 198 H (70-110) mg/dL Alkaline Phosphatase (38-126) U/L Total Protein (6.3-8.2) g/dL Albumin (3.5-5.0) g/dL 04/19/22 04/19/22 04/19/22 Range/Units 03:40 03:40 05:00 WBC 19.7 H (3.8-10.6) k/uL RBC 3.31 L (4.30-5.90) m/uL Hgb 10.1 L (13.0-17.5) gm/dL Hct 32.7 L (39.0-53.0) % MCHC 30.8 L (31.0-37.0) g/dL RDW 20.3 H (11.5-15.5) % Neutrophils # 18.7 H (1.3-7.7) k/uL Lymphocytes # 0.3 L (1.0-4.8) k/uL ABG pCO2 70 H (35-45) mmHg ABG pO2 63 L (83-108) mmHg ABG HCO3 45 H* (21-25) mmol/L ABG Total CO2 48 H (19-24) mmol/L ABG O2 Saturation 92.5 L (94-97) % ABG Hematocrit 31 L (34.0-46.0) % Hemoglobin 10.0 L (13.0-17.5) gm/dL Chloride 96 L (98-107) mmol/L Carbon Dioxide 42 H* (22-30) mmol/L BUN 59 H (9-20) mg/dL Glucose 177 H (74-99) mg/dL POC Glucose (mg/dL) (70-110) mg/dL Alkaline Phosphatase 139 H (38-126) U/L Total Protein 5.0 L (6.3-8.2) g/dL Albumin 2.4 L (3.5-5.0) g/dL 04/19/22 Range/Units 05:04 WBC (3.8-10.6) k/uL RBC (4.30-5.90) m/uL Hgb (13.0-17.5) gm/dL Hct (39.0-53.0) % MCHC (31.0-37.0) g/dL RDW (11.5-15.5) % Neutrophils # (1.3-7.7) k/uL Lymphocytes # (1.0-4.8) k/uL ABG pCO2 (35-45) mmHg ABG pO2 (83-108) mmHg ABG HCO3 (21-25) mmol/L ABG Total CO2 (19-24) mmol/L ABG O2 Saturation (94-97) % ABG Hematocrit (34.0-46.0) % Hemoglobin (13.0-17.5) gm/dL Chloride (98-107) mmol/L Carbon Dioxide (22-30) mmol/L BUN (9-20) mg/dL Glucose (74-99) mg/dL POC Glucose (mg/dL) 182 H (70-110) mg/dL Alkaline Phosphatase (38-126) U/L Total Protein (6.3-8.2) g/dL Albumin (3.5-5.0) g/dL Assessment and Plan Assessment: Acute COPD exacerbation, advanced case Left hilar mass consistent with his history of lung cancer since 11/2021 Acute hypoxic hypercapnic respiratory failure chronic hypoxic respiratory failure Left Lung cancer, undergoing chemoradiotherapy Hearing difficulty Hyperlipidemia Osteoarthritis Elevated troponin, acute coronary syndrome ruled out Plan: This is a pleasant 71 years old male who presents with severe acute COPD exacerbations with worsening hypoxia. Continue with mechanical ventilation pulmonary/critical care unit Continue with steroids and bronchodilators. He was started on Solu-Medrol 40 mg Pulmonary consult Cardiology consult. Continue with the liquids Continue with cefepime Continue with insulin Levemir and NovoLog Labs and medication were reviewed.. Continue same treatment. Continue with symptomatic treatment. Resume home medication. Monitor lytes and vitals. DVT and GI prophylaxis. Further recommendations as per clinical course of the patient DVT prophylaxis: Eliquis GI Prophylaxis: Ppi Prognosis is guarded
[2022-04-19 23:35] LABS: Glucose,Whole Blood 205 mg/dL (70-110)
[2022-04-20] MEDS: ALBUTEROL HFA INHALER INHALATION SCH ×7 (00:51→23:07)
[2022-04-20] MEDS: CEFEPIME 2 GM in SODIUM CHLORIDE 0.9% 100 ML IVPB SCH ×3 (01:18→20:57)
[2022-04-20] MEDS: LORazepam 1 MG/0.5 ML VIAL IV PRN (03:33)
[2022-04-20 03:52] LABS: Anisocytosis Moderate; Basophils % (A) 0 %; Eosinophils % (A) 0 %; HCT 32.8 % (39.0-53.0); HGB 10.1 gm/dL (13.0-17.5); Hypochromasia Marked; Lymphocytes # (A) 0.2 k/uL (1.0-4.8); Lymphocytes % (A) 1 %; MCH 31.2 pg (25.0-35.0); MCV 100.7 fL (80.0-100.0); Macrocytosis Moderate; Mean Platelet Volume 8.5; Monocytes # (A) 0.5 k/uL (0-1.0); Monocytes % (A) 2 %; Neutrophils # (A) 25.6 k/uL (1.3-7.7); Neutrophils % (A) 97 %; Platelet Count 342 k/uL (150-450); RBC 3.25 m/uL (4.30-5.90); RDW 20.5 % (11.5-15.5); WBC 26.4 k/uL (3.8-10.6)
[2022-04-20 04:05] LABS: ALT 33 U/L (4-49); AST 22 U/L (17-59); African American GFR (CKD) >90 (>60 ml/min/1.73 sqM); Albumin 2.5 g/dL (3.5-5.0); Alkaline Phosphatase 134 U/L (38-126); Blood Urea Nitrogen 62 mg/dL (9-20); Calcium 9.2 mg/dL (8.4-10.2); Chloride 98 mmol/L (98-107); Glucose 201 mg/dL (74-99); Non-African American GFR(CKD) >90 (>60 ml/min/1.73 sqM); Sodium 144 mmol/L (137-145); Total Bilirubin 0.2 mg/dL (0.2-1.3); Total Protein 5.1 g/dL (6.3-8.2)
[2022-04-20 04:11] LABS: Anion Gap 4 mmol/L
[2022-04-20] MEDS: HYDROmorphone 1 MG/ML 1 ML SYRINGE IVP PRN ×3 (04:12→21:14)
[2022-04-20 04:34] LABS: Carbon Dioxide 42 mmol/L (22-30)
[2022-04-20 04:40] LABS: ABG Base Excess 17.5 mmol/L; ABG Hematocrit 29 % (34.0-46.0); ABG Oxygen Saturation 84.4 % (94-97); ABG PH 7.37 (7.35-7.45); ABG TCO2 45 mmol/L (19-24); Allen Test Performed? Yes
[2022-04-20 04:44] LABS: ABG HCO3 43 mmol/L (21-25); ABG PCO2 75 mmHg (35-45); ABG PO2 50 mmHg (83-108)
--- NOTE | 2022-04-20 05:04 | XR ---
EXAMINATION TYPE: XR chest 1V portable DATE OF EXAM: 04/20/2022 COMPARISON: 04/19/2022 HISTORY: COPD TECHNIQUE: Single view FINDINGS: Heart is normal. There is airspace patchy consolidation in the left lung base. No heart keshav lure. There is tracheostomy tube. Chest leads. No heart failure seen. IMPRESSION: There is left lower lobe pneumonia which is slightly worse than yesterday. COPD. No obvio us heart failure.
[2022-04-20 05:23] LABS: Glucose,Whole Blood 175 mg/dL (70-110)
[2022-04-20] MEDS: NOREPINEPHRINE 4 MG in SODIUM CHLORIDE 0.9% 250 ML IV SCH ×2 (05:25→23:26)
[2022-04-20] MEDS: methylPREDNISolone SOD SUCCI 125 MG/2 ML VIAL IV SCH ×3 (05:29→20:58)
[2022-04-20] MEDS: INSULIN ASPART (NovoLOG) 100 UNIT/ML VIAL SQ SCH ×8 (05:29→20:58)
[2022-04-20] MEDS: INSULIN DETEMIR (LEVEMIR) 100 UNIT/ML SYR SQ SCH (06:36)
[2022-04-20 07:12] LABS: Large Platelets Present
[2022-04-20 07:13] LABS: Basophilic Stippling Present; Poikilocytosis (M) Present; Polychromasia Present
--- NOTE | 2022-04-20 08:18 | P.PN ---
Subjective Principal diagnosis: Respiratory failure This is 71 white male with known history of COPD who is not intubated but slowly weaning. The patient is on FiO2 100 percent off of Levothroid now on club a proximal Tracheostomy is present. Left hilar mass is noted on x-ray. The patient is spacing. Multiple consultants. Long-term prognosis is poor Discussion with cardiology and pulmonology today. Objective - Vital Signs Vital signs: Vital Signs Temp 98.2 F 04/20/22 00:00 Pulse 77 04/20/22 07:30 Resp 23 04/20/22 07:30 BP 132/69 04/20/22 07:30 Pulse Ox 97 04/20/22 07:30 FiO2 100 04/20/22 04:43 Intake & Output 04/19/22 04/20/22 04/20/22 18:59 06:59 18:59 Intake Total 927.267 736.000 Output Total 1310 1135 Balance -382.733 -399.000 Weight 79.5 kg Intake: IV 376 299 Cefepime 2 gm In Sodium 100 Chloride 0.9% 100 ml @ 25 mls/hr IVPB Q8H NESHA Rx#: [id number] Sodium Chloride 0.9% 240 260 pressure bag 36 39 Intake, IV Titration 137.267 50.000 Amount Clevidipine Butyrate 25 137.267 50.000 mg In Empty Bag 1 bag @ 1 MG/HR 2 mls/hr IV .Q24H [facility] Rx#:[id number] Tube Feeding 324 297 Other 90 90 Output: Urine 1310 1135 Other: Voiding Method Indwelling Catheter Indwelling Catheter ABP, PAP, CO, CI - Last Documented Arterial Blood Pressure 142/48 - Constitutional General appearance: Present: no acute distress - EENT Eyes: Absent: abnormal pupil - Respiratory Respiratory: bilateral: rhonchi - Cardiovascular Rhythm: regular Abnormal Heart Sounds: Absent: S3 Gallop - Gastrointestinal General gastrointestinal: Present: soft. Absent: tenderness - Integumentary Integumentary: Absent: cellulitis - Labs CBC & Chem 7: 04/20/22 03:41 04/20/22 03:41 Labs: Abnormal Lab Results - Last 24 Hours (Table) 04/19/22 04/19/22 04/19/22 Range/Units 11:49 17:27 23:33 WBC (3.8-10.6) k/uL RBC (4.30-5.90) m/uL Hgb (13.0-17.5) gm/dL Hct (39.0-53.0) % MCV (80.0-100.0) fL RDW (11.5-15.5) % Neutrophils # (1.3-7.7) k/uL Lymphocytes # (1.0-4.8) k/uL ABG pCO2 (35-45) mmHg ABG pO2 (83-108) mmHg ABG HCO3 (21-25) mmol/L ABG Total CO2 (19-24) mmol/L ABG O2 Saturation (94-97) % ABG Hematocrit (34.0-46.0) % Hemoglobin (13.0-17.5) gm/dL Carbon Dioxide (22-30) mmol/L BUN (9-20) mg/dL Glucose (74-99) mg/dL POC Glucose (mg/dL) 188 H 175 H 205 H (70-110) mg/dL Alkaline Phosphatase (38-126) U/L Total Protein (6.3-8.2) g/dL Albumin (3.5-5.0) g/dL 04/20/22 04/20/22 04/20/22 Range/Units 03:41 03:41 04:33 WBC 26.4 H (3.8-10.6) k/uL RBC 3.25 L (4.30-5.90) m/uL Hgb 10.1 L (13.0-17.5) gm/dL Hct 32.8 L (39.0-53.0) % MCV 100.7 H (80.0-100.0) fL RDW 20.5 H (11.5-15.5) % Neutrophils # 25.6 H (1.3-7.7) k/uL Lymphocytes # 0.2 L (1.0-4.8) k/uL ABG pCO2 75 H* (35-45) mmHg ABG pO2 50 L* (83-108) mmHg ABG HCO3 43 H* (21-25) mmol/L ABG Total CO2 45 H (19-24) mmol/L ABG O2 Saturation 84.4 L (94-97) % ABG Hematocrit 29 L (34.0-46.0) % Hemoglobin 9.3 L (13.0-17.5) gm/dL Carbon Dioxide 42 H* (22-30) mmol/L BUN 62 H (9-20) mg/dL Glucose 201 H (74-99) mg/dL POC Glucose (mg/dL) (70-110) mg/dL Alkaline Phosphatase 134 H (38-126) U/L Total Protein 5.1 L (6.3-8.2) g/dL Albumin 2.5 L (3.5-5.0) g/dL 04/20/22 Range/Units 05:21 WBC (3.8-10.6) k/uL RBC (4.30-5.90) m/uL Hgb (13.0-17.5) gm/dL Hct (39.0-53.0) % MCV (80.0-100.0) fL RDW (11.5-15.5) % Neutrophils # (1.3-7.7) k/uL Lymphocytes # (1.0-4.8) k/uL ABG pCO2 (35-45) mmHg ABG pO2 (83-108) mmHg ABG HCO3 (21-25) mmol/L ABG Total CO2 (19-24) mmol/L ABG O2 Saturation (94-97) % ABG Hematocrit (34.0-46.0) % Hemoglobin (13.0-17.5) gm/dL Carbon Dioxide (22-30) mmol/L BUN (9-20) mg/dL Glucose (74-99) mg/dL POC Glucose (mg/dL) 175 H (70-110) mg/dL Alkaline Phosphatase (38-126) U/L Total Protein (6.3-8.2) g/dL Albumin (3.5-5.0) g/dL Assessment and Plan (1) COPD (chronic obstructive pulmonary disease) Current Visit: Yes Status: Acute Code(s): J44.9 - CHRONIC OBSTRUCTIVE PULMONARY DISEASE, UNSPECIFIED SNOMED Code(s): 06227465 (2) Acute exacerbation of chronic obstructive pulmonary disease Current Visit: No Status: Acute Code(s): J44.1 - CHRONIC OBSTRUCTIVE PULMONARY DISEASE W (ACUTE) EXACERBATION SNOMED Code(s): 743017978 (3) Acute respiratory failure Current Visit: No Status: Acute Code(s): J96.00 - ACUTE RESPIRATORY FAILURE, UNSP W HYPOXIA OR HYPERCAPNIA SNOMED Code(s): 22052120 (4) Pneumonia Current Visit: No Status: Acute Code(s): J18.9 - PNEUMONIA, UNSPECIFIED ORGANISM SNOMED Code(s): 207797088 (5) Hilar mass Current Visit: Yes Status: Acute Code(s): R91.8 - OTHER NONSPECIFIC ABNORMAL FINDING OF LUNG FIELD SNOMED Code(s): 179770387 Plan: Worsening prognosis. We'll continue to follow with multiple consultants. Continue current regimen of treatment. Appreciate multiple consultants input. Check CBC and CMP in a.m.
[2022-04-20] MEDS: QUEtiapine 100 MG TAB PO SCH ×2 (08:30→21:05)
[2022-04-20] MEDS: amLODIPine 10 MG TAB PO SCH (08:30)
[2022-04-20] MEDS: APIXABAN 5 MG TAB PO SCH ×2 (08:30→21:04)
[2022-04-20] MEDS: CHOLECALCIFEROL 25 MCG (1000 IU) TABLET PO SCH (08:30)
[2022-04-20] MEDS: CHLORHEXIDINE GLUCONATE 15 ML CUP MUCOUS MEM SCH ×2 (08:30→21:05)
[2022-04-20] MEDS: GABAPENTIN 300 MG CAP PO SCH ×3 (08:30→21:05)
[2022-04-20] MEDS: PANTOPRAZOLE 40 MG/10 ML VIAL IVP SCH (08:31)
[2022-04-20] MEDS: SYMBICORT 160-4.5 MCG INHALER INHALATION SCH ×2 (08:32→19:29)
[2022-04-20] MEDS: CLEVIDIPINE BUTYRATE 25 MG in EMPTY BAG 1 BAG IV SCH (09:13)
[2022-04-20 11:51] LABS: Glucose,Whole Blood 188 mg/dL (70-110)
--- NOTE | 2022-04-20 11:56 | P.PN ---
Subjective Progress Note Date: 04/20/22 Principal diagnosis: Acute on chronic hypoxic and hypercapnic respiratory failure secondary to COPD, bronchogenic carcinoma, and Serratia marcescens pneumonia This is a 71-year-old white male with chronic hypoxic and hypercapnic respiratory failure severe end-stage COPD, previous history of respiratory failure requiring intubation and mechanical ventilation history of non-small cell lung cancer diagnosed back in December of 2021. Patient presented to the hospital with 2 days history of increased shortness of breath, associated with cough, some wheezing, patient is normally maintained on oxygen and on prednisone as well as theophylline and many other bronchodilators. Has been very compliant with his medications. Admitted through the emergency room with acute on chronic hypoxic and hypercapnic respiratory failure patient was placed on relatively high FiO2 and BiPAP. Condition deteriorated and the patient went on to develop worsening hypercapnic respiratory failure requiring transfer to the ICU, intubation, mechanical ventilation, and I'm seeing him today on consultation. Patient is sedated, he is on propofol. His ventilator settings are assist control rate of 20, volume 450 FiO2 35% and PEEP of 5 ABG earlier on 70% showed a pO2 of 299 pCO2 of 62 pH of 7.32. Patient is on propofol at 50 mcg/kg/m, 0.9 normal saline at 1 25 mL per hour, norepinephrine at 0.4 mcg/kg/m. Patient did receive fluid boluses yesterday, today antibiotics were added and sputum cultu res are pending. Patient will be placed empirically on Zosyn. Chest x-ray showed evidence of mass in the left pulmonary hilar area which is basically his original bronchogenic carcinoma minimal infiltrate in the left lower lobe and there is hyperinflation as well as coarse interstitial densities in both lower lobes. Nasogastric tube was noted to be in the proper position endotracheal tube in the proper position. Family is at bedside, updated the family on his condition, and we will likely give the patient a trial of weaning however the patient is known to have significant history of anxiety and I will try to use Precedex, pressure support mode of mechanical ventilation with a pressure pereira pport of 12 and CPAP after taking the patient off propofol if possible. Reevaluated today 04/02/22, patient remains in the ICU, intubated and mechanically ventilated. He is on assist control rate of 20 to volume 450 FiO2 35% and PEEP of 5. ABG showed a pO2 of 101 pCO2 of 55 pH of 7.32. Patient is on propofol at 30 mcg/kg/m he is also on 0.9 normal saline at 1 25 mL per hour. He is not requiring any pressors, no inotropes are needed. And no diuretics are needed. Patient was given a trial of weaning again today and he did not do well. As soon as the propofol placed on hold, patient became extremely short of breath, tachypnea, tachycardic, and he was having even rough time on assist cont rol mode of mechanical ventilation. Hence did not even get a chance to place the patient on pressure support mode of mechanical ventilation. Hence placed back on assist control mode and discussed with the family the different options with the patient. He will likely require tracheostomy and PEG tube placement, unless the family decides on possible comfort care measures. In the meantime we will try to continue daily assessment for weaning, but I have a strong feeling that the patient will not wean easily and may require again tracheostomy and PEG tube placement. Family would like to discuss this among themselves, and they will let me know whether they are agreeable to proceed with comfort care measures down the line. Patient again has severe end-stage COPD and he has bronchogenic carcinoma. Reevaluated today on 04/03/22, patient remains in the ICU intubated and mechanically ventilated. He is now on assist control rate of 20 to volume 450 FiO2 35% and PEEP of 5. Peak airway pressure is 35. His ABG showed a pO2 of 106 pCO2 56 pH of 7.34. Patient remains on 35% FiO2. Patient is off norepinephrine he remains on normal saline at 50 mL an hour and on propofol at 50 mcg/kg/m. Patient is receiving vital Hp at 50 mL/h the goal is 50. On physical examination continues to have rhonchi and wheezes bilaterally chest x- rays showing slight improvement in his bilateral infiltrates. Left hilar mass remains the same. Hence I have no plans to wean the patient today, and the family has made a decision that the patient does not wean in the next few days, they would like him to proceed with tracheostomy and PEG tube placement and eventual placement. We will decide this early next week in the meantime patient is not related to believe that extubated. CBC is relatively unremarkable WBC 7.3 hemoglobin is 8.8, basic metabolic profile is relatively normal, BUN is 67 creatinine is 1.36 hence we will increase his IV fluid to 75 mL Reevaluated today on 04/04/22, patient remains in the ICU, intubated and mechanically ventilated. Not much of a cell changer the last 24 hours, patient remains on assist control rate of 20 to volume 450 FiO2 35% and PEEP of 5. ABG showed a pO2 of 69 pCO2 of 67 pH of 7.29. Hence we'll increase his rate to 24. Patient remains on propofol at 50 mcg/kg/m, IV fluid 0.9 normal saline at 75 mL per hour. He is receiving vital HP at 50 mL per hour/cor. His sputum is coming back positive for Serratia and Haemophilus influenza both are covered with Zosyn. Patient has been on Zosyn all along. Patient is sedated however I will try to awaken the patient today, and assess mental status. On physical examination he continues to have tightness and wheezing and I don't believe the patient is ready to have any weaning trials again. Today I even discussed the situation all over with the family about possible tracheostomy PEG tube placement PICC line placement and eventual placement and a ventilator facility. I also discussed the option of comfort care measures. Family seems to be inclined to proceed with tracheostomy and PEG tube placement as well as PICC line placement and eventual transfer to a ventilator facility/selective care specialty. Prognosis is obviously very poor, and the family is very well aware that the patient has poor prognosis with severe end-stage COPD and bronchogenic carcinoma. WBC count is 8.8 hemoglobin is 9.7, basic metabolic profile is normal BUN is 60 creatinine 0.68. For some reason a CT angio the chest was ordered yesterday, no evidence of pulmonary embolism clinically I never thought that the patient had pulmonary embolism and the clinical presentation is not a presentation of pulmonary embolism. 04/19/2022, the patient intermittently follows commands and his condition is essentially same as yesterday without any major changes. At times, he follows simple commands such as raising his eyebrows or wiggling his toes. He is only receiving Ativan. No others IV sedation for now. He is also on 100 mg of Seroquel twice a day. He remains on a mechanical ventilator on a pressure control at the rate of 18 with a pressure control of 20 FiO2 of 40% with a PEEP of 5. Rest or secretions are still active and the patient is being suctioned adequately. He is on IV cefepime as the patient was Serratia marcescens in his sputum. Chest x-ray from today is essentially the same. Tracheostomy tube is in a good location. The patient remains hemodynamically stable. Patient is bronchodilators and patient remains on steroids. He is on IV Solu Medrol 60 mg every 6 hours. Blood gases from today shows a pH of 7.42 with a pCO2 of 69 and pO2 of 62. He was having significant amount of third spacing and edema. He was given a dose of Lasix yesterday with adequate diuresis. His net fluid balance is -1.4 L since yesterday. He continues to receive enteral feeding and the patient is currently on Nepro at the rate of 27 mL an hour. His cardiac rhythm remains sinus. He remains on anticoagulation with Eliquis. The main issue for now this is generalized debility and advanced lung disease. His mentation is also poor and the patient is extremely weak which obviously is affecting his further weaning process. Meanwhile, the patient's chest x-ray from today is essentially clear and tracheostomy tube is in a good location. On and off, the patient developed some leak around the tracheostomy tube requiring more air in the balloon. Labs from today shows a sodium level of 143, potassium level is at 3.9, serum bicarbonate of 42 with a in a 59 and creatinine 0.6. The white cell count is at 19.7 with a hemoglobin of 10.1. Reevaluated today on , patient remains in ICU, presently on pressure control mode of mechanical ventilation with pressure control of 20 inspiratory time of 0.9 rate of 18 FiO2 100% and I cut it down to 80% PEEP of 5 and I increased it to 10. ABG today showed a pO2 of 50 pCO2 75 pH of 7.37. Patient remains on cefepime for his Serratia pneumonia. Remains on eliquis, he is also on Nepro enteral feeding at 27 mL/h, patient is on clevidipine and on IV fluid a t 0.9 KVO. WBC count is 26.4 hemoglobin is 10.1 basic metabolic profile is basically normal. BUN is 62 creatinine 0.74, liver enzymes are relatively normal. Patient is not requiring any propofol at present, he is however on Seroquel. Last night his FiO2 had to be increased. And today I had to increase his PEEP, cut down his FiO2 back to 80%, no plans to initiate any weaning trials whatsoever today, patient is not a candidate for any weaning at this point. As a matter of fact his prognosis is getting worse on a daily basis. No family members available at bedside. Chest x-ray is basically not showing much of a change in his infiltrates, continues to have significant airspace disease mostly in the left lower lobe Objective - Vital Signs Vital signs: Vital Signs Temp 97.7 F 04/20/22 08:00 Pulse 87 04/20/22 11:00 Resp 19 04/20/22 11:00 BP 112/63 04/20/22 11:00 Pulse Ox 97 04/20/22 11:00 FiO2 70 04/20/22 11:31 Intake & Output 04/19/22 04/20/22 04/20/22 18:59 06:59 18:59 Intake Total 927.267 736.000 333.534 Output Total 1310 1135 125 Balance -382.733 -399.000 208.534 Weight 79.5 kg Intake: IV 376 299 149 Cefepime 2 gm In Sodium 100 100 Chloride 0.9% 100 ml @ 25 mls/hr IVPB Q8H [facility] Rx#: [id number] Sodium Chloride 0.9% 240 260 40 pressure bag 36 39 9 Intake, IV Titration 137.267 50.000 3.534 Amount Clevidipine Butyrate 25 137.267 50.000 3.534 mg In Empty Bag 1 bag @ 1 MG/HR 2 mls/hr IV .Q24H [facility] Rx#:[id number] Tube Feeding 324 297 81 Other 90 90 100 Output: Urine 1310 1135 125 Other: Voiding Method Indwelling Catheter Indwelling Catheter Indwelling Catheter ABP, PAP, CO, CI - Last Documented Arterial Blood Pressure 141/59 - Exam GENERAL: Reveals a 71-year-old white male on mechanical ventilation, off propofol. Opens eyes but does not follow any instructions. HEENT: PERRLA, EOMI, anicteric, no neck masses, no JVD, tracheostomy seems to be intact. CARDIOVASCULAR: Distant S1 and S2 no S3 gallop. No murmur. PULMONARY: Symmetrical chest expansion, continues to have diminished breath sounds scattered rhonchi. ABDOMEN: Soft nontender no megaly no rebound no guarding, positive bowel sounds. MUSCULOSKELETAL: No deformities and no limitation in range of motion EXTREMITIES: Mild clubbing, 2+ bipedal edema and edema noted in upper extremities bilaterally., no cyanosis NEUROLOGICAL: Opens eyes to verbal stimuli but does not follow any instructions, he is off propofol. SKIN: No rashes. Psychiatric: Cannot assess - Labs CBC & Chem 7: 04/20/22 03:41 04/20/22 03:41 Labs: Abnormal Lab Results - Last 24 Hours (Table) 04/19/22 04/19/22 04/19/22 Range/Units 11:49 17:27 23:33 WBC (3.8-10.6) k/uL RBC (4.30-5.90) m/uL Hgb (13.0-17.5) gm/dL Hct (39.0-53.0) % MCV (80.0-100.0) fL RDW (11.5-15.5) % Neutrophils # (1.3-7.7) k/uL Lymphocytes # (1.0-4.8) k/uL ABG pCO2 (35-45) mmHg ABG pO2 (83-108) mmHg ABG HCO3 (21-25) mmol/L ABG Total CO2 (19-24) mmol/L ABG O2 Saturation (94-97) % ABG Hematocrit (34.0-46.0) % Hemoglobin (13.0-17.5) gm/dL Carbon Dioxide (22-30) mmol/L BUN (9-20) mg/dL Glucose (74-99) mg/dL POC Glucose (mg/dL) 188 H 175 H 205 H (70-110) mg/dL Alkaline Phosphatase (38-126) U/L Total Protein (6.3-8.2) g/dL Albumin (3.5-5.0) g/dL 04/20/22 04/20/22 04/20/22 Range/Units 03:41 03:41 04:33 WBC 26.4 H (3.8-10.6) k/uL RBC 3.25 L (4.30-5.90) m/uL Hgb 10.1 L (13.0-17.5) gm/dL Hct 32.8 L (39.0-53.0) % MCV 100.7 H (80.0-100.0) fL RDW 20.5 H (11.5-15.5) % Neutrophils # 25.6 H (1.3-7.7) k/uL Lymphocytes # 0.2 L (1.0-4.8) k/uL ABG pCO2 75 H* (35-45) mmHg ABG pO2 50 L* (83-108) mmHg ABG HCO3 43 H* (21-25) mmol/L ABG Total CO2 45 H (19-24) mmol/L ABG O2 Saturation 84.4 L (94-97) % ABG Hematocrit 29 L (34.0-46.0) % Hemoglobin 9.3 L (13.0-17.5) gm/dL Carbon Dioxide 42 H* (22-30) mmol/L BUN 62 H (9-20) mg/dL Glucose 201 H (74-99) mg/dL POC Glucose (mg/dL) (70-110) mg/dL Alkaline Phosphatase 134 H (38-126) U/L Total Protein 5.1 L (6.3-8.2) g/dL Albumin 2.5 L (3.5-5.0) g/dL 04/20/22 Range/Units 05:21 WBC (3.8-10.6) k/uL RBC (4.30-5.90) m/uL Hgb (13.0-17.5) gm/dL Hct (39.0-53.0) % MCV (80.0-100.0) fL RDW (11.5-15.5) % Neutrophils # (1.3-7.7) k/uL Lymphocytes # (1.0-4.8) k/uL ABG pCO2 (35-45) mmHg ABG pO2 (83-108) mmHg ABG HCO3 (21-25) mmol/L ABG Total CO2 (19-24) mmol/L ABG O2 Saturation (94-97) % ABG Hematocrit (34.0-46.0) % Hemoglobin (13.0-17.5) gm/dL Carbon Dioxide (22-30) mmol/L BUN (9-20) mg/dL Glucose (74-99) mg/dL POC Glucose (mg/dL) 175 H (70-110) mg/dL Alkaline Phosphatase (38-126) U/L Total Protein (6.3-8.2) g/dL Albumin (3.5-5.0) g/dL Assessment and Plan Assessment: Impression: Acute on chronic hypoxic and hypercapnic respiratory failure intubated on 03/31, tracheostomy and PEG tube placement on 04/06, failure to wean from mechanical ventilation. Bilateral pneumonia secondary to Serratia marcescens and Haemophilus influenza, on cefepime, COVID-19 infection confirmed on 04/10 and positive on 04/13, likely contracted from his who was also positive. Acute exacerbation of COPD History of squamous cell lung cancer diagnosed on 01/01/2022. Given systemic chemotherapy. Previous history of respiratory failure requiring intubation and mechanical ventilation tracheostomy and PEG tube placement, this was over 4 years ago. Generalized anxiety disorder. Severe COPD, FEV1 less than 35%. Degenerative joint disease Acute kidney injury Electrolytes imbalance with hyperkalemia and hyperchloremia as well as hypernatremia, improving. Bilateral cortical parietal ischemic changes, possible ischemic stroke. Recommendation: Continue ventilatory support, patient is a failure to wean require tracheostomy and PEG tube placement. Continue bronchodilators Continue cefepime Continue Seroquel. Continue eliquis for anticoagulation Continue Solu-Medrol. Continue GI and DVT prophylaxis Continue Nutritional support/enteral feeding Unable to wean at this point, patient is a failure to wean. Continue diuretics. Patient has third spacing. Prognosis remains extremely poor and guarded We'll discuss with family CODE STATUS again Critical care time is over 30 minutes Time with Patient: Greater than 30
[2022-04-20] MEDS ORDERED: ALBUTEROL HFA INHALER INHALATION ONE (15:05)
[2022-04-20] MEDS ORDERED: INSULIN ASPART (NovoLOG) 100 UNIT/ML VIAL SQ ONE (18:00)
[2022-04-20] MEDS ORDERED: methylPREDNISolone SOD SUCCI 125 MG/2 ML VIAL ONE (18:00)
[2022-04-20] MEDS ORDERED: GABAPENTIN 300 MG CAP ONE (18:00)
[2022-04-20 19:07] LABS: Glucose,Whole Blood 142 mg/dL (70-110)
[2022-04-20] MEDS: ATORVASTATIN 10 MG TAB PO SCH (21:05)
[2022-04-20] MEDS: LATANOPROST 0.005% OPHTH DROPS 2.5 ML BTL BOTH EYES SCH (21:07)
[2022-04-21 00:29] LABS: Glucose,Whole Blood 133 mg/dL (70-110)
[2022-04-21] MEDS: INSULIN ASPART (NovoLOG) 100 UNIT/ML VIAL SQ SCH ×10 (00:31→23:57)
[2022-04-21] MEDS: methylPREDNISolone SOD SUCCI 125 MG/2 ML VIAL IV SCH ×5 (00:42→23:45)
[2022-04-21] MEDS: CEFEPIME 2 GM in SODIUM CHLORIDE 0.9% 100 ML IVPB SCH ×3 (01:47→18:11)
[2022-04-21] MEDS: ALBUTEROL HFA INHALER INHALATION SCH ×5 (02:46→20:48)
[2022-04-21] MEDS: HYDROmorphone 1 MG/ML 1 ML SYRINGE IVP PRN ×4 (02:59→18:43)
[2022-04-21 05:34] LABS: Anisocytosis Moderate; Basophils % (A) 0 %; Eosinophils % (A) 0 %; HCT 30.4 % (39.0-53.0); HGB 9.2 gm/dL (13.0-17.5); Hypochromasia Marked; Lymphocytes # (A) 0.2 k/uL (1.0-4.8); Lymphocytes % (A) 1 %; MCH 30.7 pg (25.0-35.0); MCHC 30.2 g/dL (31.0-37.0); MCV 101.6 fL (80.0-100.0); Macrocytosis Marked; Mean Platelet Volume 8.8; Monocytes # (A) 0.5 k/uL (0-1.0); Monocytes % (A) 2 %; Neutrophils # (A) 23.8 k/uL (1.3-7.7); Neutrophils % (A) 97 %; Platelet Count 265 k/uL (150-450); RBC 2.99 m/uL (4.30-5.90); WBC 24.6 k/uL (3.8-10.6)
[2022-04-21 05:36] LABS: ABG PCO2 65 mmHg (35-45); ABG PH 7.44 (7.35-7.45); ABG PO2 72 mmHg (83-108); Allen Test Performed? no
[2022-04-21 05:37] LABS: ABG Base Excess 19.1 mmol/L; ABG HCO3 43 mmol/L (21-25); ABG TCO2 45 mmol/L (19-24)
[2022-04-21 05:48] LABS: ALT 34 U/L (4-49); AST 24 U/L (17-59); African American GFR (CKD) >90 (>60 ml/min/1.73 sqM); Albumin 2.2 g/dL (3.5-5.0); Alkaline Phosphatase 119 U/L (38-126); Blood Urea Nitrogen 68 mg/dL (9-20); Chloride 101 mmol/L (98-107); Glucose 118 mg/dL (74-99); Non-African American GFR(CKD) 88 (>60 ml/min/1.73 sqM); Potassium 3.8 mmol/L (3.5-5.1); Sodium 146 mmol/L (137-145); Total Bilirubin 0.1 mg/dL (0.2-1.3); Total Protein 4.6 g/dL (6.3-8.2)
[2022-04-21 05:54] LABS: Anion Gap 4 mmol/L
[2022-04-21 06:23] LABS: Glucose,Whole Blood 122 mg/dL (70-110)
[2022-04-21 06:52] LABS: Carbon Dioxide 41 mmol/L (22-30)
[2022-04-21] MEDS: SYMBICORT 160-4.5 MCG INHALER INHALATION SCH ×2 (07:23→20:49)
[2022-04-21] MEDS: CLEVIDIPINE BUTYRATE 25 MG in EMPTY BAG 1 BAG IV SCH ×6 (08:10→21:07)
--- NOTE | 2022-04-21 08:38 | P.PN ---
Subjective Principal diagnosis: Respiratory failure This is 71 white male with known history of COPD who is not intubated but slowly weaning. The patient is on FiO2 60 percent off of Levothroid now on club a proximal Tracheostomy is present. Left hilar mass is noted on x-ray. The patient is spacing. Multiple consultants. Long-term prognosis is poor Discussion with cardiology and pulmonology today. Objective - Vital Signs Vital signs: Vital Signs Temp 98.4 F 04/21/22 00:00 Pulse 80 04/21/22 07:00 Resp 18 04/21/22 07:00 BP 157/52 04/21/22 07:00 Pulse Ox 95 04/21/22 07:00 FiO2 60 04/21/22 07:17 Intake & Output 04/20/22 04/21/22 04/21/22 18:59 06:59 18:59 Intake Total 453.534 564 53.666 Output Total 210 635 40 Balance 243.534 -71 13.666 Weight 82 kg Intake: IV 185 143 13 Cefepime 2 gm In Sodium 100 Chloride 0.9% 100 ml @ 25 mls/hr IVPB Q8H [facility] Rx#: [id number] Sodium Chloride 0.9% 70 110 10 pressure bag 15 33 3 Intake, IV Titration 3.534 34 13.666 Amount Clevidipine Butyrate 25 3.534 34 13.666 mg In Empty Bag 1 bag @ 1 MG/HR 2 mls/hr IV .Q24H [facility] Rx#:[id number] Tube Feeding 135 297 27 Other 130 90 Output: Urine 210 635 40 Other: Voiding Method Indwelling Catheter Indwelling Catheter ABP, PAP, CO, CI - Last Documented Arterial Blood Pressure 138/58 - Constitutional General appearance: Present: no acute distress - EENT Eyes: Absent: abnormal pupil - Neck Neck: Absent: lymphadenopathy - Respiratory Respiratory: bilateral: CTA - Cardiovascular Rhythm: regular Heart sounds: normal: S1, S2 Abnormal Heart Sounds: Absent: S3 Gallop - Gastrointestinal General gastrointestinal: Present: soft. Absent: tenderness - Integumentary Integumentary: Absent: cellulitis - Labs CBC & Chem 7: 04/21/22 04:30 04/21/22 04:30 Labs: Abnormal Lab Results - Last 24 Hours (Table) 04/20/22 04/20/22 04/21/22 Range/Units 11:49 18:29 00:27 WBC (3.8-10.6) k/uL RBC (4.30-5.90) m/uL Hgb (13.0-17.5) gm/dL Hct (39.0-53.0) % MCV (80.0-100.0) fL MCHC (31.0-37.0) g/dL RDW (11.5-15.5) % Neutrophils # (1.3-7.7) k/uL Lymphocytes # (1.0-4.8) k/uL Macrocytosis ABG pCO2 (35-45) mmHg ABG pO2 (83-108) mmHg ABG HCO3 (21-25) mmol/L ABG Total CO2 (19-24) mmol/L Sodium (137-145) mmol/L Carbon Dioxide (22-30) mmol/L BUN (9-20) mg/dL Glucose (74-99) mg/dL POC Glucose (mg/dL) 188 H 142 H 133 H (70-110) mg/dL Total Bilirubin (0.2-1.3) mg/dL Total Protein (6.3-8.2) g/dL Albumin (3.5-5.0) g/dL 04/21/22 04/21/22 04/21/22 Range/Units 04:30 04:30 05:30 WBC 24.6 H (3.8-10.6) k/uL RBC 2.99 L (4.30-5.90) m/uL Hgb 9.2 L (13.0-17.5) gm/dL Hct 30.4 L (39.0-53.0) % MCV 101.6 H (80.0-100.0) fL MCHC 30.2 L (31.0-37.0) g/dL RDW 21.0 H (11.5-15.5) % Neutrophils # 23.8 H (1.3-7.7) k/uL Lymphocytes # 0.2 L (1.0-4.8) k/uL Macrocytosis Marked A ABG pCO2 65 H (35-45) mmHg ABG pO2 72 L (83-108) mmHg ABG HCO3 43 H* (21-25) mmol/L ABG Total CO2 45 H (19-24) mmol/L Sodium 146 H (137-145) mmol/L Carbon Dioxide 41 H* (22-30) mmol/L BUN 68 H (9-20) mg/dL Glucose 118 H (74-99) mg/dL POC Glucose (mg/dL) (70-110) mg/dL Total Bilirubin 0.1 L (0.2-1.3) mg/dL Total Protein 4.6 L (6.3-8.2) g/dL Albumin 2.2 L (3.5-5.0) g/dL 04/21/22 Range/Units 06:21 WBC (3.8-10.6) k/uL RBC (4.30-5.90) m/uL Hgb (13.0-17.5) gm/dL Hct (39.0-53.0) % MCV (80.0-100.0) fL MCHC (31.0-37.0) g/dL RDW (11.5-15.5) % Neutrophils # (1.3-7.7) k/uL Lymphocytes # (1.0-4.8) k/uL Macrocytosis ABG pCO2 (35-45) mmHg ABG pO2 (83-108) mmHg ABG HCO3 (21-25) mmol/L ABG Total CO2 (19-24) mmol/L Sodium (137-145) mmol/L Carbon Dioxide (22-30) mmol/L BUN (9-20) mg/dL Glucose (74-99) mg/dL POC Glucose (mg/dL) 122 H (70-110) mg/dL Total Bilirubin (0.2-1.3) mg/dL Total Protein (6.3-8.2) g/dL Albumin (3.5-5.0) g/dL Assessment and Plan (1) COPD (chronic obstructive pulmonary disease) Current Visit: Yes Status: Acute Code(s): J44.9 - CHRONIC OBSTRUCTIVE PULMONARY DISEASE, UNSPECIFIED SNOMED Code(s): 56372495 (2) Acute exacerbation of chronic obstructive pulmonary disease Current Visit: No Status: Acute Code(s): J44.1 - CHRONIC OBSTRUCTIVE PULMONARY DISEASE W (ACUTE) EXACERBATION SNOMED Code(s): 866111382 (3) Acute respiratory failure Current Visit: No Status: Acute Code(s): J96.00 - ACUTE RESPIRATORY FAILURE, UNSP W HYPOXIA OR HYPERCAPNIA SNOMED Code(s): 97270196 (4) Pneumonia Current Visit: No Status: Acute Code(s): J18.9 - PNEUMONIA, UNSPECIFIED ORGANISM SNOMED Code(s): 241489213 (5) Hilar mass Current Visit: Yes Status: Acute Code(s): R91.8 - OTHER NONSPECIFIC ABNORMAL FINDING OF LUNG FIELD SNOMED Code(s): 436694982 Plan: Worsening prognosis. We'll continue to follow with multiple consultants. Continue current regimen of treatment. Appreciate multiple consultants input. Check CBC and CMP in a.m.
[2022-04-21] MEDS: INSULIN DETEMIR (LEVEMIR) 100 UNIT/ML SYR SQ SCH (09:09)
[2022-04-21] MEDS: PANTOPRAZOLE 40 MG/10 ML VIAL IVP SCH (09:10)
[2022-04-21] MEDS: CHLORHEXIDINE GLUCONATE 15 ML CUP MUCOUS MEM SCH ×2 (09:10→20:26)
[2022-04-21] MEDS: GABAPENTIN 300 MG CAP PO SCH ×3 (09:11→20:59)
[2022-04-21] MEDS: amLODIPine 10 MG TAB PO SCH (09:11)
[2022-04-21] MEDS: QUEtiapine 100 MG TAB PO SCH ×2 (09:11→20:59)
[2022-04-21] MEDS: APIXABAN 5 MG TAB PO SCH ×2 (09:11→20:27)
[2022-04-21] MEDS: CHOLECALCIFEROL 25 MCG (1000 IU) TABLET PO SCH (09:11)
[2022-04-21] MEDS: LORazepam 1 MG/0.5 ML VIAL IV PRN ×2 (09:11→23:51)
[2022-04-21] MEDS: POTASSIUM CHLORIDE 10 MEQ in WATER FOR INJECTION 1 100ML.BAG IVPB SCH ×2 (09:12→14:50)
--- NOTE | 2022-04-21 10:15 | XR ---
EXAM: XR Chest, 1 View CLINICAL HISTORY: ITS.REASON XR Reason: trach to vent TECHNIQUE: Frontal view of the chest. COMPARISON: No relevant prior studies available. FINDINGS/IMPRESSION: Tracheostomy tube. Left PICC line terminates in the SVC. Left base consolidation, which is partially excluded from the field-of- view, correlate for aspiration/pneumonia. Both costophrenic angles are not in the field of view, small effusions cannot be excluded. No pneumothorax.
--- NOTE | 2022-04-21 10:55 | P.PN ---
Subjective Progress Note Date: 04/21/22 Principal diagnosis: Acute on chronic hypoxic and hypercapnic respiratory failure secondary to COPD, bronchogenic carcinoma, and Serratia marcescens pneumonia This is a 71-year-old white male with chronic hypoxic and hypercapnic respiratory failure severe end-stage COPD, previous history of respiratory failure requiring intubation and mechanical ventilation history of non-small cell lung cancer diagnosed back in December of 2021. Patient presented to the hospital with 2 days history of increased shortness of breath, associated with cough, some wheezing, patient is normally maintained on oxygen and on prednisone as well as theophylline and many other bronchodilators. Has been very compliant with his medications. Admitted through the emergency room with acute on chronic hypoxic and hypercapnic respiratory failure patient was placed on relatively high FiO2 and BiPAP. Condition deteriorated and the patient went on to develop worsening hypercapnic respiratory failure requiring transfer to the ICU, intubation, mechanical ventilation, and I'm seeing him today on consultation. Patient is sedated, he is on propofol. His ventilator settings are assist control rate of 20, volume 450 FiO2 35% and PEEP of 5 ABG earlier on 70% showed a pO2 of 299 pCO2 of 62 pH of 7.32. Patient is on propofol at 50 mcg/kg/m, 0.9 normal saline at 1 25 mL per hour, norepinephrine at 0.4 mcg/kg/m. Patient did receive fluid boluses yesterday, today antibiotics were added and sputum cultu res are pending. Patient will be placed empirically on Zosyn. Chest x-ray showed evidence of mass in the left pulmonary hilar area which is basically his original bronchogenic carcinoma minimal infiltrate in the left lower lobe and there is hyperinflation as well as coarse interstitial densities in both lower lobes. Nasogastric tube was noted to be in the proper position endotracheal tube in the proper position. Family is at bedside, updated the family on his condition, and we will likely give the patient a trial of weaning however the patient is known to have significant history of anxiety and I will try to use Precedex, pressure support mode of mechanical ventilation with a pressure pereira pport of 12 and CPAP after taking the patient off propofol if possible. Reevaluated today 04/02/22, patient remains in the ICU, intubated and mechanically ventilated. He is on assist control rate of 20 to volume 450 FiO2 35% and PEEP of 5. ABG showed a pO2 of 101 pCO2 of 55 pH of 7.32. Patient is on propofol at 30 mcg/kg/m he is also on 0.9 normal saline at 1 25 mL per hour. He is not requiring any pressors, no inotropes are needed. And no diuretics are needed. Patient was given a trial of weaning again today and he did not do well. As soon as the propofol placed on hold, patient became extremely short of breath, tachypnea, tachycardic, and he was having even rough time on assist cont rol mode of mechanical ventilation. Hence did not even get a chance to place the patient on pressure support mode of mechanical ventilation. Hence placed back on assist control mode and discussed with the family the different options with the patient. He will likely require tracheostomy and PEG tube placement, unless the family decides on possible comfort care measures. In the meantime we will try to continue daily assessment for weaning, but I have a strong feeling that the patient will not wean easily and may require again tracheostomy and PEG tube placement. Family would like to discuss this among themselves, and they will let me know whether they are agreeable to proceed with comfort care measures down the line. Patient again has severe end-stage COPD and he has bronchogenic carcinoma. Reevaluated today on 04/03/22, patient remains in the ICU intubated and mechanically ventilated. He is now on assist control rate of 20 to volume 450 FiO2 35% and PEEP of 5. Peak airway pressure is 35. His ABG showed a pO2 of 106 pCO2 56 pH of 7.34. Patient remains on 35% FiO2. Patient is off norepinephrine he remains on normal saline at 50 mL an hour and on propofol at 50 mcg/kg/m. Patient is receiving vital Hp at 50 mL/h the goal is 50. On physical examination continues to have rhonchi and wheezes bilaterally chest x- rays showing slight improvement in his bilateral infiltrates. Left hilar mass remains the same. Hence I have no plans to wean the patient today, and the family has made a decision that the patient does not wean in the next few days, they would like him to proceed with tracheostomy and PEG tube placement and eventual placement. We will decide this early next week in the meantime patient is not related to believe that extubated. CBC is relatively unremarkable WBC 7.3 hemoglobin is 8.8, basic metabolic profile is relatively normal, BUN is 67 creatinine is 1.36 hence we will increase his IV fluid to 75 mL Reevaluated today on 04/04/22, patient remains in the ICU, intubated and mechanically ventilated. Not much of a change management facilitator the last 24 hours, patient remains on assist control rate of 20 to volume 450 FiO2 35% and PEEP of 5. ABG showed a pO2 of 69 pCO2 of 67 pH of 7.29. Hence we'll increase his rate to 24. Patient remains on propofol at 50 mcg/kg/m, IV fluid 0.9 normal saline at 75 mL per hour. He is receiving vital HP at 50 mL per hour/cor. His sputum is coming back positive for Serratia and Haemophilus influenza both are covered with Zosyn. Patient has been on Zosyn all along. Patient is sedated however I will try to awaken the patient today, and assess mental status. On physical examination he continues to have tightness and wheezing and I don't believe the patient is ready to have any weaning trials again. Today I even discussed the situation all over with the family about possible tracheostomy PEG tube placement PICC line placement and eventual placement and a ventilator facility. I also discussed the option of comfort care measures. Family seems to be inclined to proceed with tracheostomy and PEG tube placement as well as PICC line placement and eventual transfer to a ventilator facility/selective care specialty. Prognosis is obviously very poor, and the family is very well aware that the patient has poor prognosis with severe end-stage COPD and bronchogenic carcinoma. WBC count is 8.8 hemoglobin is 9.7, basic metabolic profile is normal BUN is 60 creatinine 0.68. For some reason a CT angio the chest was ordered yesterday, no evidence of pulmonary embolism clinically I never thought that the patient had pulmonary embolism and the clinical presentation is not a presentation of pulmonary embolism. 04/19/2022, the patient intermittently follows commands and his condition is essentially same as yesterday without any major changes. At times, he follows simple commands such as raising his eyebrows or wiggling his toes. He is only receiving Ativan. No others IV sedation for now. He is also on 100 mg of Seroquel twice a day. He remains on a mechanical ventilator on a pressure control at the rate of 18 with a pressure control of 20 FiO2 of 40% with a PEEP of 5. Rest or secretions are still active and the patient is being suctioned adequately. He is on IV cefepime as the patient was Serratia marcescens in his sputum. Chest x-ray from today is essentially the same. Tracheostomy tube is in a good location. The patient remains hemodynamically stable. Patient is bronchodilators and patient remains on steroids. He is on IV Solu Medrol 60 mg every 6 hours. Blood gases from today shows a pH of 7.42 with a pCO2 of 69 and pO2 of 62. He was having significant amount of third spacing and edema. He was given a dose of Lasix yesterday with adequate diuresis. His net fluid balance is -1.4 L since yesterday. He continues to receive enteral feeding and the patient is currently on Nepro at the rate of 27 mL an hour. His cardiac rhythm remains sinus. He remains on anticoagulation with Eliquis. The main issue for now this is generalized debility and advanced lung disease. His mentation is also poor and the patient is extremely weak which obviously is affecting his further weaning process. Meanwhile, the patient's chest x-ray from today is essentially clear and tracheostomy tube is in a good location. On and off, the patient developed some leak around the tracheostomy tube requiring more air in the balloon. Labs from today shows a sodium level of 143, potassium level is at 3.9, serum bicarbonate of 42 with a in a 59 and creatinine 0.6. The white cell count is at 19.7 with a hemoglobin of 10.1. Reevaluated today on 04/20/22, patient remains in ICU, presently on pressure control mode of mechanical ventilation with pressure control of 20 inspiratory time of 0.9 rate of 18 FiO2 100% and I cut it down to 80% PEEP of 5 and I increased it to 10. ABG today showed a pO2 of 50 pCO2 75 pH of 7.37. Patient remains on cefepime for his Serratia pneumonia. Remains on eliquis, he is also on Nepro enteral feeding at 27 mL/h, patient is on clevidipine and on IV fluid at 0.9 KVO. WBC count is 26.4 hemoglobin is 10.1 basic metabolic profile is basically normal. BUN is 62 creatinine 0.74, liver enzymes are relatively normal. Patient is not requiring any propofol at present, he is however on Seroquel. Last night his FiO2 had to be increased. And today I had to increase his PEEP, cut down his FiO2 back to 80%, no plans to initiate any weaning trials whatsoever today, patient is not a candidate for any weaning at this point. As a matter of fact his prognosis is getting worse on a daily basis. No family members available at bedside. Chest x-ray is basically not showing much of a change in his infiltrates, continues to have significant airspace disease mostly in the left lower lobe Reevaluated today on 04/21/22, patient remains in the ICU, remains intubated and mechanically ventilated, he is on pressure control mode of mechanical ventilation, blood pressure control of 20 inspiratory time of 0.9, FiO2 60% PEEP of 10 rate of 18. ABG showed a pO2 of 72 pCO2 65 pH of 7.44. Remains on enteral feeding/Nepro remains on cefepime is also on Solu-Medrol 60 mg IV push every 6 hours Cleviprex at 10 mg/h and he is on eliquis. Not much of a change overnight, chest x-ray today showed slight worsening of the pneumonia in the left lower lobe. Patient is arousable, however he seems to be quite restless and agitated with the tracheostomy, he follows simple instructions like squeezing hands and wiggling toes. Seems to be appropriate and that as he seems to be quite agitated. WBC count is elevated at 24.6 hemoglobin is 9.2, basic metabolic profile is relatively unremarkable except for bicarb of 41 pH Objective - Vital Signs Vital signs: Vital Signs Temp 98.4 F 04/21/22 00:00 Pulse 80 04/21/22 07:00 Resp 18 04/21/22 07:00 BP 157/52 04/21/22 07:00 Pulse Ox 95 04/21/22 07:00 FiO2 60 04/21/22 07:17 Intake & Output 04/20/22 04/21/22 04/21/22 18:59 06:59 18:59 Intake Total 453.534 564 102.466 Output Total 210 635 40 Balance 243.534 -71 62.466 Weight 82 kg Intake: IV 185 143 13 Cefepime 2 gm In Sodium 100 Chloride 0.9% 100 ml @ 25 mls/hr IVPB Q8H [facility] Rx#: [id number] Sodium Chloride 0.9% 70 110 10 pressure bag 15 33 3 Intake, IV Titration 3.534 34 62.466 Amount Clevidipine Butyrate 25 3.534 34 62.466 mg In Empty Bag 1 bag @ 1 MG/HR 2 mls/hr IV .Q24H [facility] Rx#:[id number] Tube Feeding 135 297 27 Other 130 90 Output: Urine 210 635 40 Other: Voiding Method Indwelling Catheter Indwelling Catheter ABP, PAP, CO, CI - Last Documented Arterial Blood Pressure 138/58 - Exam GENERAL: Reveals a 71-year-old white male on mechanical ventilation, bit restless, off propofol HEENT: PERRLA, EOMI, anicteric, no neck masses, no JVD, tracheostomy seems to be intact. CARDIOVASCULAR: Distant S1 and S2 no S3 gallop. No murmur. PULMONARY: Symmetrical chest expansion, crackles and rhonchi at the bases especially at the left base. ABDOMEN: Soft nontender no megaly no rebound no guarding, positive bowel sounds. MUSCULOSKELETAL: No deformities and no limitation in range of motion EXTREMITIES: Mild clubbing, 2+ bipedal edema and edema noted in upper extremities bilaterally., no cyanosis NEUROLOGICAL: Arousable, restless, agitated, follows simple instructions SKIN: No rashes. Psychiatric: Cannot assess - Labs CBC & Chem 7: 04/21/22 04:30 04/21/22 04:30 Labs: Abnormal Lab Results - Last 24 Hours (Table) 04/20/22 04/20/22 04/21/22 Range/Units 11:49 18:29 00:27 WBC (3.8-10.6) k/uL RBC (4.30-5.90) m/uL Hgb (13.0-17.5) gm/dL Hct (39.0-53.0) % MCV (80.0-100.0) fL MCHC (31.0-37.0) g/dL RDW (11.5-15.5) % Neutrophils # (1.3-7.7) k/uL Lymphocytes # (1.0-4.8) k/uL Macrocytosis ABG pCO2 (35-45) mmHg ABG pO2 (83-108) mmHg ABG HCO3 (21-25) mmol/L ABG Total CO2 (19-24) mmol/L Sodium (137-145) mmol/L Carbon Dioxide (22-30) mmol/L BUN (9-20) mg/dL Glucose (74-99) mg/dL POC Glucose (mg/dL) 188 H 142 H 133 H (70-110) mg/dL Total Bilirubin (0.2-1.3) mg/dL Total Protein (6.3-8.2) g/dL Albumin (3.5-5.0) g/dL 04/21/22 04/21/22 04/21/22 Range/Units 04:30 04:30 05:30 WBC 24.6 H (3.8-10.6) k/uL RBC 2.99 L (4.30-5.90) m/uL Hgb 9.2 L (13.0-17.5) gm/dL Hct 30.4 L (39.0-53.0) % MCV 101.6 H (80.0-100.0) fL MCHC 30.2 L (31.0-37.0) g/dL RDW 21.0 H (11.5-15.5) % Neutrophils # 23.8 H (1.3-7.7) k/uL Lymphocytes # 0.2 L (1.0-4.8) k/uL Macrocytosis Marked A ABG pCO2 65 H (35-45) mmHg ABG pO2 72 L (83-108) mmHg ABG HCO3 43 H* (21-25) mmol/L ABG Total CO2 45 H (19-24) mmol/L Sodium 146 H (137-145) mmol/L Carbon Dioxide 41 H* (22-30) mmol/L BUN 68 H (9-20) mg/dL Glucose 118 H (74-99) mg/dL POC Glucose (mg/dL) (70-110) mg/dL Total Bilirubin 0.1 L (0.2-1.3) mg/dL Total Protein 4.6 L (6.3-8.2) g/dL Albumin 2.2 L (3.5-5.0) g/dL 04/21/22 Range/Units 06:21 WBC (3.8-10.6) k/uL RBC (4.30-5.90) m/uL Hgb (13.0-17.5) gm/dL Hct (39.0-53.0) % MCV (80.0-100.0) fL MCHC (31.0-37.0) g/dL RDW (11.5-15.5) % Neutrophils # (1.3-7.7) k/uL Lymphocytes # (1.0-4.8) k/uL Macrocytosis ABG pCO2 (35-45) mmHg ABG pO2 (83-108) mmHg ABG HCO3 (21-25) mmol/L ABG Total CO2 (19-24) mmol/L Sodium (137-145) mmol/L Carbon Dioxide (22-30) mmol/L BUN (9-20) mg/dL Glucose (74-99) mg/dL POC Glucose (mg/dL) 122 H (70-110) mg/dL Total Bilirubin (0.2-1.3) mg/dL Total Protein (6.3-8.2) g/dL Albumin (3.5-5.0) g/dL Assessment and Plan Assessment: Impression: Acute on chronic hypoxic and hypercapnic respiratory failure intubated on 03/31, tracheostomy and PEG tube placement on 04/06, failure to wean from mechanical ventilation. Bilateral pneumonia secondary to Serratia marcescens and Haemophilus influenza, on cefepime, COVID-19 infection confirmed on 04/10 and positive on 04/13, likely contracted from his who was also positive. Acute exacerbation of COPD History of squamous cell lung cancer diagnosed on 01/01/2022. Given systemic chemotherapy. Previous history of respiratory failure requiring intubation and mechanical ventilation tracheostomy and PEG tube placement, this was over 4 years ago. Generalized anxiety disorder. Severe COPD, FEV1 less than 35%. Degenerative joint disease Acute kidney injury Electrolytes imbalance with hyperkalemia and hyperchloremia as well as hypernatremia, improving. Bilateral cortical parietal ischemic changes, possible ischemic stroke. Recommendation: Discussed and updated his Va on his overall clinical status, explained to her that the patient is not doing much better, he is basically about the same, remains full code, we will consider plans to transfer patient to select care specialty if possible. Will ask family welfare social work professor to evaluate the patient again. Patient remains ventilator dependent and he will likely not to wean anytime soon Continue ventilatory support, patient is a failure to wean require tracheostomy and PEG tube placement. Continue bronchodilators Continue cefepime Continue Seroquel. Continue eliquis for anticoagulation Continue Solu-Medrol. Continue GI and DVT prophylaxis Continue Nutritional support/enteral feeding Unable to wean at this point, patient is a failure to wean. Continue diuretics. Patient has third spacing. Prognosis remains extremely poor and guarded We'll discuss with family CODE STATUS again Critical care time is over 30 minutes Time with Patient: Greater than 30
[2022-04-21 11:29] LABS: Glucose,Whole Blood 127 mg/dL (70-110)
[2022-04-21] MEDS: NOREPINEPHRINE 4 MG in SODIUM CHLORIDE 0.9% 250 ML IV SCH (15:20)
[2022-04-21 18:05] LABS: Glucose,Whole Blood 110 mg/dL (70-110)
[2022-04-21] MEDS: LATANOPROST 0.005% OPHTH DROPS 2.5 ML BTL BOTH EYES SCH (20:26)
[2022-04-21] MEDS: ATORVASTATIN 10 MG TAB PO SCH (20:27)
[2022-04-21 23:57] LABS: Glucose,Whole Blood 128 mg/dL (70-110)
[2022-04-22] MEDS: ALBUTEROL HFA INHALER INHALATION SCH ×6 (01:05→18:30)
[2022-04-22] MEDS: CEFEPIME 2 GM in SODIUM CHLORIDE 0.9% 100 ML IVPB SCH ×3 (02:20→17:29)
[2022-04-22] MEDS: HYDROmorphone 1 MG/ML 1 ML SYRINGE IVP PRN ×4 (03:46→18:36)
[2022-04-22 05:12] LABS: ABG Base Excess 17.5 mmol/L; ABG Hematocrit 26 % (34.0-46.0); ABG Oxygen Saturation 98.7 % (94-97); ABG PCO2 65 mmHg (35-45); ABG PH 7.42 (7.35-7.45); ABG PO2 105 mmHg (83-108); ABG TCO2 44 mmol/L (19-24); Allen Test Performed? Yes
[2022-04-22 05:15] LABS: ABG HCO3 42 mmol/L (21-25)
[2022-04-22 05:36] LABS: Glucose,Whole Blood 141 mg/dL (70-110)
[2022-04-22] MEDS: INSULIN ASPART (NovoLOG) 100 UNIT/ML VIAL SQ SCH ×6 (05:37→18:57)
[2022-04-22] MEDS: methylPREDNISolone SOD SUCCI 125 MG/2 ML VIAL IV SCH ×3 (05:38→18:55)
[2022-04-22 06:39] LABS: ALT 35 U/L (4-49); AST 35 U/L (17-59); African American GFR (CKD) >90 (>60 ml/min/1.73 sqM); Albumin 2.2 g/dL (3.5-5.0); Alkaline Phosphatase 89 U/L (38-126); Anion Gap 3 mmol/L; Blood Urea Nitrogen 77 mg/dL (9-20); Calcium 8.9 mg/dL (8.4-10.2); Carbon Dioxide 39 mmol/L (22-30); Chloride 102 mmol/L (98-107); Glucose 125 mg/dL (74-99); Non-African American GFR(CKD) >90 (>60 ml/min/1.73 sqM); Sodium 144 mmol/L (137-145); Total Bilirubin 0.4 mg/dL (0.2-1.3); Total Protein 4.6 g/dL (6.3-8.2)
[2022-04-22] MEDS: INSULIN DETEMIR (LEVEMIR) 100 UNIT/ML SYR SQ SCH (06:39)
[2022-04-22 06:40] LABS: Potassium 4.4 mmol/L (3.5-5.1)
[2022-04-22 07:00] LABS: Anisocytosis Moderate; Basophils % (A) 0 %; Eosinophils # (A) 0.1 k/uL (0-0.7); Eosinophils % (A) 0 %; HCT 29.4 % (39.0-53.0); HGB 8.8 gm/dL (13.0-17.5); Hypochromasia Marked; Lymphocytes # (A) 0.2 k/uL (1.0-4.8); Lymphocytes % (A) 1 %; MCH 30.3 pg (25.0-35.0); MCHC 30.1 g/dL (31.0-37.0); MCV 100.6 fL (80.0-100.0); Macrocytosis Moderate; Mean Platelet Volume 10.1; Monocytes # (A) 0.6 k/uL (0-1.0); Monocytes % (A) 3 %; Neutrophils % (A) 96 %; Platelet Count 244 k/uL (150-450); RBC 2.92 m/uL (4.30-5.90); RDW 20.8 % (11.5-15.5); WBC 23.8 k/uL (3.8-10.6)
--- NOTE | 2022-04-22 07:03 | XR ---
EXAM: XR Chest, 1 View CLINICAL HISTORY: ITS.REASON XR Reason: trach/vent TECHNIQUE: Frontal view of the chest. COMPARISON: XR Chest dated 04/21/2022 FINDINGS: See Impression. IMPRESSION: 1. No significant interval change. 2. Stable tracheostomy tube and left PICC. 3. Mild left basilar atelectasis or airspace disease.
[2022-04-22] MEDS: SYMBICORT 160-4.5 MCG INHALER INHALATION SCH ×2 (07:34→18:30)
--- NOTE | 2022-04-22 08:20 | P.PN ---
Subjective Principal diagnosis: Respiratory failure This is 71 white male with known history of COPD who is not intubated but slowly weaning. The patient is on FiO2 50 percent.PEEP of 10. Still with left basal consolidation x-ray yesterday. Difficulty weaning. He is not following commands Long-term prognosis is poor Pulmonology noted. Objective - Vital Signs Vital signs: Vital Signs Temp 98.1 F 04/22/22 04:00 Pulse 82 04/22/22 07:00 Resp 14 04/22/22 07:00 BP 138/90 04/22/22 07:00 Pulse Ox 94 L 04/22/22 06:30 FiO2 50 04/22/22 07:28 Intake & Output 04/21/22 04/22/22 04/22/22 18:59 06:59 18:59 Intake Total 1366.133 650.667 40 Output Total 985 610 40 Balance 381.133 40.667 0 Weight 82 kg 83 kg Intake: IV 586 156 13 Cefepime 2 gm In Sodium 200 Chloride 0.9% 100 ml @ 25 mls/hr IVPB Q8H [facility] Rx#: [id number] Potassium Chloride 10 meq 200 In Water For Injection 1 100ml.bag @ 100 mls/hr IVPB Q1H [facility] Rx#: [id number] Sodium Chloride 0.9% 150 120 10 pressure bag 36 36 3 Intake, IV Titration 206.133 80.667 Amount Clevidipine Butyrate 25 206.133 80.667 mg In Empty Bag 1 bag @ 1 MG/HR 2 mls/hr IV .Q24H [facility] Rx#:[id number] Tube Feeding 324 324 27 Other 250 90 Output: Urine 985 610 40 Other: Voiding Method Indwelling Catheter Indwelling Catheter ABP, PAP, CO, CI - Last Documented Arterial Blood Pressure 142/55 - Constitutional General appearance: Present: no acute distress - EENT Eyes: Absent: abnormal pupil - Neck Neck: Absent: lymphadenopathy - Respiratory Respiratory: bilateral: rhonchi - Cardiovascular Rhythm: regular Heart sounds: normal: S1, S2 Abnormal Heart Sounds: Absent: S3 Gallop - Gastrointestinal General gastrointestinal: Present: soft. Absent: tenderness, umbilical hernia - Integumentary Integumentary: Absent: cellulitis - Psychiatric Psychiatric: Absent: intact judgment & insight - Labs CBC & Chem 7: 04/22/22 05:30 04/22/22 05:30 Labs: Abnormal Lab Results - Last 24 Hours (Table) 04/21/22 04/21/22 04/22/22 Range/Units 11:27 23:55 05:07 WBC (3.8-10.6) k/uL RBC (4.30-5.90) m/uL Hgb (13.0-17.5) gm/dL Hct (39.0-53.0) % MCV (80.0-100.0) fL MCHC (31.0-37.0) g/dL RDW (11.5-15.5) % Neutrophils # (1.3-7.7) k/uL Lymphocytes # (1.0-4.8) k/uL ABG pCO2 65 H (35-45) mmHg ABG HCO3 42 H* (21-25) mmol/L ABG Total CO2 44 H (19-24) mmol/L ABG O2 Saturation 98.7 H (94-97) % ABG Hematocrit 26 L (34.0-46.0) % Hemoglobin 8.6 L (13.0-17.5) gm/dL Carbon Dioxide (22-30) mmol/L BUN (9-20) mg/dL Creatinine (0.66-1.25) mg/dL Glucose (74-99) mg/dL POC Glucose (mg/dL) 127 H 128 H (70-110) mg/dL Total Protein (6.3-8.2) g/dL Albumin (3.5-5.0) g/dL 04/22/22 04/22/22 04/22/22 Range/Units 05:30 05:30 05:33 WBC 23.8 H (3.8-10.6) k/uL RBC 2.92 L (4.30-5.90) m/uL Hgb 8.8 L (13.0-17.5) gm/dL Hct 29.4 L (39.0-53.0) % MCV 100.6 H (80.0-100.0) fL MCHC 30.1 L (31.0-37.0) g/dL RDW 20.8 H (11.5-15.5) % Neutrophils # 23.0 H (1.3-7.7) k/uL Lymphocytes # 0.2 L (1.0-4.8) k/uL ABG pCO2 (35-45) mmHg ABG HCO3 (21-25) mmol/L ABG Total CO2 (19-24) mmol/L ABG O2 Saturation (94-97) % ABG Hematocrit (34.0-46.0) % Hemoglobin (13.0-17.5) gm/dL Carbon Dioxide 39 H (22-30) mmol/L BUN 77 H (9-20) mg/dL Creatinine 0.43 L (0.66-1.25) mg/dL Glucose 125 H (74-99) mg/dL POC Glucose (mg/dL) 141 H (70-110) mg/dL Total Protein 4.6 L (6.3-8.2) g/dL Albumin 2.2 L (3.5-5.0) g/dL Assessment and Plan (1) COPD (chronic obstructive pulmonary disease) Current Visit: Yes Status: Acute Code(s): J44.9 - CHRONIC OBSTRUCTIVE PULM ONARY DISEASE, UNSPECIFIED SNOMED Code(s): 69243687 (2) Acute exacerbation of chronic obstructive pulmonary disease Current Visit: No Status: Acute Code(s): J44.1 - CHRONIC OBSTRUCTIVE PULMONARY DISEASE W (ACUTE) EXACERBATION SNOMED Code(s): 044479250 (3) Acute respiratory failure Current Visit: No Status: Acute Code(s): J96.00 - ACUTE RESPIRATORY FAILURE, UNSP W HYPOXIA OR HYPERCAPNIA SNOMED Code(s): 29978565 (4) Pneumonia Current Visit: No Status: Acute Code(s): J18.9 - PNEUMONIA, UNSPECIFIED ORGANISM SNOMED Code(s): 072529098 (5) Hilar mass Current Visit: Yes Status: Acute Code(s): R91.8 - OTHER NONSPECIFIC ABNORMAL FINDING OF LUNG FIELD SNOMED Code(s): 420842433 Plan: We'll continue to follow with multiple consultants. Continue current regimen of treatment. Appreciate multiple consultants input. Check CBC and CMP in a.m.
[2022-04-22] MEDS: PANTOPRAZOLE 40 MG/10 ML VIAL IVP SCH (09:21)
[2022-04-22] MEDS: CHOLECALCIFEROL 25 MCG (1000 IU) TABLET PO SCH (09:22)
[2022-04-22] MEDS: APIXABAN 5 MG TAB PO SCH ×2 (09:22→21:15)
[2022-04-22] MEDS: amLODIPine 10 MG TAB PO SCH (09:22)
[2022-04-22] MEDS: CHLORHEXIDINE GLUCONATE 15 ML CUP MUCOUS MEM SCH ×2 (09:22→21:15)
[2022-04-22] MEDS: GABAPENTIN 300 MG CAP PO SCH ×3 (09:23→21:15)
[2022-04-22] MEDS: QUEtiapine 100 MG TAB PO SCH ×2 (09:33→21:15)
[2022-04-22] MEDS: LORazepam 1 MG/0.5 ML VIAL IV PRN ×3 (09:33→17:28)
--- NOTE | 2022-04-22 10:57 | P.CRDCN ---
History of Present Illness Consult date: 04/22/22 History of present illness: This is a 71-year-old gentleman with a past medical history significant for advanced COPD and chronic hypoxic respiratory failure as well as non-small cell lung cancer as well as multiple comorbid conditions was admitted to the hospital with acute hypoxic respiratory failure requiring intubation and mechanical ventilation. We have been reconsulted abnormal cardiac enzymes. Patient underwent a cardiac catheterization in 2019 which showed normal coronary arteries. Patient underwent an echocardiogram which showed a normal LV function without significant valvular disease. Patient is examined this morning resting comfortably in bed mechanically ventilated, Elevated troponins are believed nonischemic to be secondary to hypoxia and demand mismatch. Will obtain an EKG if no change from previous, will continue to follow patient on an as-needed basis Review of Systems REVIEW OF SYSTEMS At the time of my exam: CONSTITUTIONAL: Denies fever or chills. EYES: Negative for vision changes ENT: Negative for hearing loss CARDIOVASCULAR: Denies chest pain, shortness of breath, diaphoresis, orthopnea, PND or palpitations. VASCULAR: Denies edema RESPIRATORY: Denies cough. GASTROINTESTINAL: Denies abdominal pain, diarrhea, constipation, nausea or vomiting. MUSCULOSKELETAL: Denies myalgias. NEUROLOGIC: Denies numbness, tingling, headache or weakness. ENDOCRINE: Denies fatigue, weight change, polydipsia or polyurina. GENITOURINARY: Denies burning, hematuria or urgency with micturation. HEMATOLOGIC: Denies history of anemia or bleeding. DERMATOLOGY: Denies rash or skin sores PSYCH: Negative for depression or hallucinations. Past Medical History Past Medical History: Cancer, COPD, Hearing Disorder / Deafness, Hyperlipidemia, Osteoarthritis (OA), Pneumonia, Prostate Disorder Additional Past Medical History / Comment(s): Hard of hearing, has hearing aids but does not use them. FREQUENT HOARSENESS. HX PNEUMONIA/VENITLATED/TRACH @ [facility] FROM 06/12/18 TO 06/30/18. O2/2L @ NIGHT. RESTLESS LEG. NEUROPATHY. HX BLADDER CALCULI. HX ONE SEIZURE DURING BRONCHOSCOPY. LUNG CA 11/2021. History of Any Multi-Drug Resistant Organisms: None Reported Past Surgical History: Heart Catheterization, Prostate Surgery Additional Past Surgical History / Comment(s): TURP, RIGHT WRIST BIOPSY (SQ CELL). BILATERAL KNEE ARTHROSCOPIES. TRIGGER FINGER RELEASE BILATERAL HANDS. AMPUTATION TIP OF LEFT INDEX FINGER. Tracheotomy. BRONCHOSCOPY. Past Anesthesia/Blood Transfusion Reactions: No Reported Reaction Past Psychological History: Anxiety Smoking Status: Former smoker Past Alcohol Use History: Rare Additional Past Alcohol Use History / Comment(s): QUIT SMOKING February 2021. SMOKED 1/2 PPD FOR 50+ YEARS. Past Drug Use History: None Reported - Past Family History Mother Family Medical History: Cancer Additional Family Medical History / Comment(s): LUNG Cancer. Father Family Medical History: Cancer Medications and Allergies Home Medications Medication Instructions Recorded Confirmed Type ALPRAZolam [Xanax] 0.5 mg PO TID 09/08/18 03/31/22 History Atorvastatin [Lipitor] 10 mg PO HS 09/08/18 03/31/22 History HYDROcodone/APAP 10-325MG [[place] 1 tab PO QID 09/08/18 03/31/22 History 10-325] Ipratropium-Albuterol Nebulize 3 ml INHALATION RT-QID 09/08/18 03/31/22 History [Duoneb 0.5 mg-3 mg/3 ml Soln] Montelukast [Singulair] 10 mg PO HS 09/08/18 03/31/22 History Theophylline 12 Hour [Jaskaran-Dur] 300 mg PO BID 09/08/18 03/31/22 History rOPINIRole HCL [Requip] 0.5 mg PO HS 09/08/18 03/31/22 History Calcium Carbonate [Calcium] 600 mg PO HS 11/28/18 03/31/22 History Multivitamins, Thera [Multivitamin 1 tab PO DAILY 11/28/18 03/31/22 History (formulary)] Aspirin EC [Ecotrin Low Dose] 81 mg PO DAILY 04/30/21 03/31/22 History Cholecalciferol [Vitamin D3 (25 50 mcg PO DAILY 04/30/21 03/31/22 History Mcg = 1000 Iu)] Pantoprazole [Protonix] 40 mg PO DAILY 04/30/21 03/31/22 History Albuterol Sulfate [Albuterol 2 puff PO RT-Q6H PRN 03/31/22 03/31/22 History Sulfate Hfa] Dm/Acetaminophen/Doxylamine [Vicks 30 ml PO HS 03/31/22 03/31/22 History Nyquil Cold-Flu Liquid] Fluticasone/Umeclidin/Vilanter 1 puff INHALATION RT-DAILY 03/31/22 03/31/22 History [Trelegy Ellipta 200-62.5-25] Gabapentin [Neurontin] 300 mg PO TID 03/31/22 03/31/22 History Latanoprost/Pf [Latanoprost 0.005% 1 drop BOTH EYES HS 03/31/22 03/31/22 History Eye Drop] guaiFENesin 400 mg PO BID 03/31/22 03/31/22 History predniSONE 10 mg PO DAILY 03/31/22 03/31/22 History Allergies Allergy/AdvReac Type Severity Reaction Status Date / Time No Known Allergies Allergy Verified 03/31/22 22:27 Physical Exam Vitals: Vital Signs Temp Pulse Pulse Resp BP BP Pulse Ox 04/22/22 10:42 04/22/22 10:03 04/22/22 09:00 85 25 H 141/87 94 L 04/22/22 08:31 04/22/22 08:00 83 20 140/74 95 04/22/22 07:28 04/22/22 07:00 82 14 138/90 04/22/22 06:30 85 15 138/90 94 L 04/22/22 06:00 85 20 132/70 94 L 04/22/22 05:30 88 19 132/70 95 04/22/22 05:14 04/22/22 05:00 87 23 118/64 04/22/22 04:30 82 14 118/64 98 04/22/22 04:00 98.1 F 86 7 L 123/74 98 04/22/22 03:45 04/22/22 03:30 90 21 123/74 95 04/22/22 03:00 81 17 123/69 04/22/22 02:30 17 123/69 97 04/22/22 02:00 81 18 98/64 04/22/22 01:30 79 19 98/64 98 04/22/22 01:01 04/22/22 01:00 77 18 119/67 04/22/22 00:30 81 17 119/67 97 04/22/22 00:00 97.4 F L 80 18 93/58 97 04/21/22 23:30 79 14 93/58 96 04/21/22 23:00 76 18 87/52 96 04/21/22 22:30 79 18 87/52 96 04/21/22 22:00 83 19 124/64 94 L 04/21/22 21:37 84 18 124/64 95 04/21/22 21:30 87 6 L 124/64 95 04/21/22 21:00 84 18 135/66 97 04/21/22 20:38 04/21/22 20:30 90 12 135/66 95 04/21/22 20:00 98.1 F 86 19 135/64 97 04/21/22 19:30 84 16 135/64 95 04/21/22 19:00 79 22 142/71 96 04/21/22 18:30 86 24 94 L 04/21/22 18:00 89 25 H 127/70 92 L 04/21/22 17:30 85 18 93 L 04/21/22 17:00 86 16 126/71 92 L 04/21/22 16:30 80 18 94 L 04/21/22 16:00 98.2 F 78 19 129/64 95 04/21/22 15:30 83 17 94 L 04/21/22 15:00 81 18 129/66 95 04/21/22 14:51 04/21/22 14:30 76 18 98 04/21/22 14:00 82 22 141/55 96 04/21/22 13:00 91 21 146/53 98 04/21/22 12:30 158/58 04/21/22 12:00 97.5 F L 85 22 158/54 98 04/21/22 11:30 149/64 04/21/22 11:00 91 18 144/66 95 04/21/22 10:53 FiO2 04/22/22 10:42 50 04/22/22 10:03 50 04/22/22 09:00 50 04/22/22 08:31 50 04/22/22 08:00 50 04/22/22 07:28 50 04/22/22 07:00 04/22/22 06:30 04/22/22 06:00 04/22/22 05:30 04/22/22 05:14 50 04/22/22 05:00 04/22/22 04:30 04/22/22 04:00 60 04/22/22 03:45 60 04/22/22 03:30 04/22/22 03:00 04/22/22 02:30 04/22/22 02:00 04/22/22 01:30 04/22/22 01:01 60 04/22/22 01:00 04/22/22 00:30 04/22/22 00:00 60 04/21/22 23:30 04/21/22 23:00 04/21/22 22:30 04/21/22 22:00 04/21/22 21:37 04/21/22 21:30 04/21/22 21:00 04/21/22 20:38 60 04/21/22 20:30 04/21/22 20:00 60 04/21/22 19:30 04/21/22 19:00 04/21/22 18:30 04/21/22 18:00 04/21/22 17:30 04/21/22 17:00 04/21/22 16:30 04/21/22 16:00 60 04/21/22 15:30 04/21/22 15:00 04/21/22 14:51 60 04/21/22 14:30 04/21/22 14:00 60 04/21/22 13:00 60 04/21/22 12:30 04/21/22 12:00 60 04/21/22 11:30 04/21/22 11:00 60 04/21/22 10:53 60 Intake and Output 04/21/22 04/22/22 04/22/22 22:59 06:59 14:59 Intake Total 871.667 389 150 Output Total 470 415 240 Balance 401.667 -26 -90 Intake: IV 324 104 39 Cefepime 2 gm In Sodium 100 Chloride 0.9% 100 ml @ 25 mls/hr IVPB Q8H NESHA Rx#: [id number] Potassium Chloride 10 meq 100 In Water For Injection 1 100ml.bag @ 100 mls/hr IVPB Q1H NESHA Rx#: [id number] Sodium Chloride 0.9% 100 80 30 pressure bag 24 24 9 Intake, IV Titration 171.667 9 Amount Clevidipine Butyrate 25 171.667 9 mg In Empty Bag 1 bag @ 1 MG/HR 2 mls/hr IV .Q24H NESHA Rx#:[id number] Tube Feeding 216 216 81 Other 160 60 30 Output: Urine 470 415 240 Other: Voiding Method Indwelling Catheter Indwelling Catheter Weight 83 kg ABP, PAP, CO, CI - Last 8 Hours Arterial Blood Pressure 164/56 Arterial Blood Pressure 149/52 Arterial Blood Pressure 142/55 Arterial Blood Pressure 148/54 Arterial Blood Pressure 147/53 Arterial Blood Pressure 130/54 Arterial Blood Pressure 143/58 Arterial Blood Pressure 112/51 Arterial Blood Pressure 103/50 Arterial Blood Pressure 179/62 Arterial Blood Pressure 157/55 PHYSICAL EXAMINATION VITAL SIGNS: Reviewed General: The patient is awake and alert, in no distress, and does not appear acutely ill. Skin: Skin is warm and dry and no rashes or lesions are noted. Eye: Pupils are equal, round and reactive to light, extra-ocular movements are intact; there is normal conjunctiva bilaterally. Ears, nose, mouth and throat: There are moist mucous membranes and no oral lesions. Neck: The neck is supple, there is no tenderness or JVD. Cardiovascular: There is irregular regular rate and rhythm. No murmur, rub or gallop is appreciated. Respiratory: Lungs are clear to auscultation, Mechanically ventilated Gastrointestinal: Soft, non-distended, non-tender abdomen without masses or organomegaly noted. There is no rebound or guarding present. Bowel sounds are unremarkable. PEG tube present Back: There is no tenderness to palpation in the midline. There is no obvious deformity. Musculoskeletal: Normal ROM, no tenderness, There is no pedal edema. There is no calf tenderness or swelling. Extremities: Mild bilateral pitting edema Vascular: Femoral pulse is normal. Posterior tibial pulses are normal .Dorsalis pedis is palpable. Neurological: CN II-XII intact. There are no obvious motor or sensory deficits. Speech is normal. Psychiatric: Cooperative, appropriate mood & affect, normal judgment Results 04/22/22 05:30 04/22/22 05:30 Cardiac Enzymes 04/22/22 Range/Units 05:30 AST 35 (17-59) U/L CBC 04/22/22 Range/Units 05:30 WBC 23.8 H (3.8-10.6) k/uL RBC 2.92 L (4.30-5.90) m/uL Hgb 8.8 L (13.0-17.5) gm/dL Hct 29.4 L (39.0-53.0) % Plt Count 244 (150-450) k/uL Comprehensive Metabolic Panel 04/22/22 Range/Units 05:30 Sodium 144 (137-145) mmol/L Potassium 4.4 (3.5-5.1) mmol/L Chloride 102 (98-107) mmol/L Carbon Dioxide 39 H (22-30) mmol/L BUN 77 H (9-20) mg/dL Creatinine 0.43 L (0.66-1.25) mg/dL Glucose 125 H (74-99) mg/dL Calcium 8.9 (8.4-10.2) mg/dL AST 35 (17-59) U/L ALT 35 (4-49) U/L Alkaline Phosphatase 89 (38-126) U/L Total Protein 4.6 L (6.3-8.2) g/dL Albumin 2.2 L (3.5-5.0) g/dL Current Medications Generic Name Dose Route Start Last Admin Trade Name Freq PRN Reason Stop Dose Admin Albuterol Sulfate 2 puff 04/12/22 12:00 04/22/22 07:34 Albuterol Hfa Inhaler INHALATION 2 puff RT-Q4H NESHA Administration Amlodipine Besylate 10 mg 04/12/22 09:00 04/22/22 09:22 Amlodipine 10 Mg Tab PO 10 mg DAILY NESHA Administration Apixaban 5 mg 04/16/22 13:00 04/22/22 09:22 Apixaban 5 Mg Tab PO 5 mg BID NESHA Administration Protocol Atorvastatin Calcium 10 mg 04/01/22 00:45 04/21/22 20:27 Atorvastatin 10 Mg Tab PO 10 mg HS NESHA Administration Budesonide/Formoterol Fumarate 2 puff 04/12/22 20:00 04/22/22 07:34 Symbicort 160-4.5 Mcg Inhaler INHALATION 2 puff RT-BID NESHA Administration Chlorhexidine Gluconate 15 ml 04/01/22 09:00 04/22/22 09:22 Chlorhexidine Gluconate 15 Ml Cup MUCOUS MEM 15 ml BID NESHA Administration Cholecalciferol 50 mcg 04/01/22 09:00 04/22/22 09:22 Cholecalciferol 25 Mcg (1000 Iu) Tablet PO 50 mcg DAILY NESHA Administration Clonidine HCl 1 patch 04/16/22 20:00 04/16/22 20:23 Clonidine 0.2 Mg/24hr Patch TRANSDERM 1 patch Q7D NESHA Administration Dextrose/Water 50 ml 08/18/22 07:15 Dextrose 50% Syringe 50 Ml IVP PER PROTOCOL PRN Hypoglycemia Protocol Gabapentin 300 mg 04/01/22 00:45 04/22/22 09:23 Gabapentin 300 Mg Cap PO 300 mg TID NESHA Administration Hydromorphone HCl 1 mg 04/14/22 10:57 04/22/22 06:39 Hydromorphone 1 Mg/Ml 1 Ml Syringe IVP 1 mg Q2HR PRN Administration Pain Norepinephrine Bitartrate 4 mg 254 mls @ 14.63 mls/hr 04/06/22 11:15 04/21/22 15:20 / Sodium Chloride IV Not Given .[id number] NESHA Protocol 0.05 MCG/KG/MIN Clevidipine 25 mg/ IV Solution 50 mls @ 2 mls/hr 04/10/22 09:30 04/22/22 06:00 IV 2 mg/hr .Q24H NESHA 4 mls/hr Titration Protocol 1 MG/HR Cefepime HCl 2 gm/ Sodium 100 mls @ 25 mls/hr 04/16/22 10:00 04/22/22 09:40 Chloride IVPB 25 mls/hr Q8H NESHA Administration Protocol Insulin Aspart 0 unit 04/08/22 18:00 04/22/22 05:38 Insulin Aspart (Novolog) 100 Unit/Ml Vial SQ Not Given Q6HR [facility] Protocol Insulin Aspart 6 unit 04/11/22 18:00 04/22/22 05:37 Insulin Aspart (Novolog) 100 Unit/Ml Vial SQ 6 unit Q6H NESHA Administration Insulin Detemir 22 unit 04/18/22 07:00 04/22/22 06:39 Insulin Detemir (Levemir) 100 Unit/Ml Syr SQ 22 unit DAILY@0700 NESHA Administration Latanoprost 1 drops 04/01/22 00:32 04/21/22 20:26 Latanoprost 0.005% Ophth Drops 2.5 Ml Btl BOTH EYES 1 drops HS NESHA Administration Lorazepam 1 mg 04/14/22 12:23 04/22/22 09:34 Lorazepam 1 Mg/0.5 Ml Vial IV 1 mg TID PRN Administration Anxiety Methylprednisolone Sodium Succinate 60 mg 04/12/22 12:00 04/22/22 05:38 Methylprednisolone Sod Succi 125 Mg/2 Ml Vial IV 60 mg Q6HR NESHA Administration Miscellaneous Information 1 each 04/17/22 05:34 Potassium Replacement Protocol 1 Each Misc MISCELLANE DAILY PRN Per Protocol Protocol Naloxone HCl 0.2 mg 03/31/22 22:30 Naloxone 0.4 Mg/Ml 1 Ml Vial IV Q2M PRN Opioid Reversal Pantoprazole Sodium 40 mg 04/02/22 09:00 04/22/22 09:21 Pantoprazole 40 Mg/10 Ml Vial IVP 40 mg DAILY NESHA Administration Quetiapine Fumarate 100 mg 04/18/22 21:00 04/22/22 09:33 Quetiapine 100 Mg Tab PO 100 mg BID NESHA Administration Ropinirole HCl 0.5 mg 04/01/22 00:45 04/21/22 20:27 Ropinirole Hcl 0.25 Mg Tab PO 0.5 mg HS NESHA Administration Sodium Chloride 10 ml 04/09/22 13:54 Sodium Chloride 0.9% Flush 10 Ml Syringe IV Q4HR PRN PICC Line Sodium Chloride 10 ml 04/16/22 09:00 04/16/22 08:02 Sodium Chloride 0.9% Flush 10 Ml Syringe IV 10 ml WEEKLY NESHA Administration Sodium Chloride 20 ml 04/09/22 13:54 Sodium Chloride 0.9% Flush 10 Ml Syringe IV Q4HR PRN PICC Line Intake and Output 04/21/22 04/22/22 04/22/22 22:59 06:59 14:59 Intake Total 871.667 389 150 Output Total 470 415 240 Balance 401.667 -26 -90 Intake: IV 324 104 39 Cefepime 2 gm In Sodium 100 Chloride 0.9% 100 ml @ 25 mls/hr IVPB Q8H NESHA Rx#: [id number] Potassium Chloride 10 meq 100 In Water For Injection 1 100ml.bag @ 100 mls/hr IVPB Q1H NESHA Rx#: [id number] Sodium Chloride 0.9% 100 80 30 pressure bag 24 24 9 Intake, IV Titration 171.667 9 Amount Clevidipine Butyrate 25 171.667 9 mg In Empty Bag 1 bag @ 1 MG/HR 2 mls/hr IV .Q24H NESHA Rx#:[id number] Tube Feeding 216 216 81 Other 160 60 30 Output: Urine 470 415 240 Other: Voiding Method Indwelling Catheter Indwelling Catheter Weight 83 kg 04/22/22 05:30 09/08/22 05:30 Assessment and Plan Assessment: non-STEMI, type II mechanism related to hypoxia and supply and demand mismatch Acute on chronic respiratory failure related to COPD exacerbation Normal coronary arteries by heart catheterization 2018 Plan: Obtain an EKG Continue with all current cardiac medications Continue to follow patient on an as-needed basis The above impression and plan of care have been discussed and directed by the signing physician. Krissy Celaya, nurse practitioner, acting as scribe for signing physician.
[2022-04-22 12:13] LABS: Glucose,Whole Blood 131 mg/dL (70-110)
--- NOTE | 2022-04-22 12:26 | P.PN ---
Subjective Progress Note Date: 04/22/22 Principal diagnosis: Acute on chronic hypoxic and hypercapnic respiratory failure secondary to COPD, bronchogenic carcinoma, and Serratia marcescens pneumonia This is a 71-year-old white male with chronic hypoxic and hypercapnic respiratory failure severe end-stage COPD, previous history of respiratory failure requiring intubation and mechanical ventilation history of non-small cell lung cancer diagnosed back in December of 2021. Patient presented to the hospital with 2 days history of increased shortness of breath, associated with cough, some wheezing, patient is normally maintained on oxygen and on prednisone as well as theophylline and many other bronchodilators. Has been very compliant with his medications. Admitted through the emergency room with acute on chronic hypoxic and hypercapnic respiratory failure patient was placed on relatively high FiO2 and BiPAP. Condition deteriorated and the patient went on to develop worsening hypercapnic respiratory failure requiring transfer to the ICU, intubation, mechanical ventilation, and I'm seeing him today on consultation. Patient is sedated, he is on propofol. His ventilator settings are assist control rate of 20, volume 450 FiO2 35% and PEEP of 5 ABG earlier on 70% showed a pO2 of 299 pCO2 of 62 pH of 7.32. Patient is on propofol at 50 mcg/kg/m, 0.9 normal saline at 1 25 mL per hour, norepinephrine at 0.4 mcg/kg/m. Patient did receive fluid boluses yesterday, today antibiotics were added and sputum cultu res are pending. Patient will be placed empirically on Zosyn. Chest x-ray showed evidence of mass in the left pulmonary hilar area which is basically his original bronchogenic carcinoma minimal infiltrate in the left lower lobe and there is hyperinflation as well as coarse interstitial densities in both lower lobes. Nasogastric tube was noted to be in the proper position endotracheal tube in the proper position. Family is at bedside, updated the family on his condition, and we will likely give the patient a trial of weaning however the patient is known to have significant history of anxiety and I will try to use Precedex, pressure support mode of mechanical ventilation with a pressure pereira pport of 12 and CPAP after taking the patient off propofol if possible. Reevaluated today 04/02/22, patient remains in the ICU, intubated and mechanically ventilated. He is on assist control rate of 20 to volume 450 FiO2 35% and PEEP of 5. ABG showed a pO2 of 101 pCO2 of 55 pH of 7.32. Patient is on propofol at 30 mcg/kg/m he is also on 0.9 normal saline at 1 25 mL per hour. He is not requiring any pressors, no inotropes are needed. And no diuretics are needed. Patient was given a trial of weaning again today and he did not do well. As soon as the propofol placed on hold, patient became extremely short of breath, tachypnea, tachycardic, and he was having even rough time on assist cont rol mode of mechanical ventilation. Hence did not even get a chance to place the patient on pressure support mode of mechanical ventilation. Hence placed back on assist control mode and discussed with the family the different options with the patient. He will likely require tracheostomy and PEG tube placement, unless the family decides on possible comfort care measures. In the meantime we will try to continue daily assessment for weaning, but I have a strong feeling that the patient will not wean easily and may require again tracheostomy and PEG tube placement. Family would like to discuss this among themselves, and they will let me know whether they are agreeable to proceed with comfort care measures down the line. Patient again has severe end-stage COPD and he has bronchogenic carcinoma. Reevaluated today on 04/03/22, patient remains in the ICU intubated and mechanically ventilated. He is now on assist control rate of 20 to volume 450 FiO2 35% and PEEP of 5. Peak airway pressure is 35. His ABG showed a pO2 of 106 pCO2 56 pH of 7.34. Patient remains on 35% FiO2. Patient is off norepinephrine he remains on normal saline at 50 mL an hour and on propofol at 50 mcg/kg/m. Patient is receiving vital Hp at 50 mL/h the goal is 50. On physical examination continues to have rhonchi and wheezes bilaterally chest x- rays showing slight improvement in his bilateral infiltrates. Left hilar mass remains the same. Hence I have no plans to wean the patient today, and the family has made a decision that the patient does not wean in the next few days, they would like him to proceed with tracheostomy and PEG tube placement and eventual placement. We will decide this early next week in the meantime patient is not related to believe that extubated. CBC is relatively unremarkable WBC 7.3 hemoglobin is 8.8, basic metabolic profile is relatively normal, BUN is 67 creatinine is 1.36 hence we will increase his IV fluid to 75 mL Reevaluated today on 04/04/22, patient remains in the ICU, intubated and mechanically ventilated. Not much of a exchange specialist the last 24 hours, patient remains on assist control rate of 20 to volume 450 FiO2 35% and PEEP of 5. ABG showed a pO2 of 69 pCO2 of 67 pH of 7.29. Hence we'll increase his rate to 24. Patient remains on propofol at 50 mcg/kg/m, IV fluid 0.9 normal saline at 75 mL per hour. He is receiving vital HP at 50 mL per hour/cor. His sputum is coming back positive for Serratia and Haemophilus influenza both are covered with Zosyn. Patient has been on Zosyn all along. Patient is sedated however I will try to awaken the patient today, and assess mental status. On physical examination he continues to have tightness and wheezing and I don't believe the patient is ready to have any weaning trials again. Today I even discussed the situation all over with the family about possible tracheostomy PEG tube placement PICC line placement and eventual placement and a ventilator facility. I also discussed the option of comfort care measures. Family seems to be inclined to proceed with tracheostomy and PEG tube placement as well as PICC line placement and eventual transfer to a ventilator facility/selective care specialty. Prognosis is obviously very poor, and the family is very well aware that the patient has poor prognosis with severe end-stage COPD and bronchogenic carcinoma. WBC count is 8.8 hemoglobin is 9.7, basic metabolic profile is normal BUN is 60 creatinine 0.68. For some reason a CT angio the chest was ordered yesterday, no evidence of pulmonary embolism clinically I never thought that the patient had pulmonary embolism and the clinical presentation is not a presentation of pulmonary embolism. 04/19/2022, the patient intermittently follows commands and his condition is essentially same as yesterday without any major changes. At times, he follows simple commands such as raising his eyebrows or wiggling his toes. He is only receiving Ativan. No others IV sedation for now. He is also on 100 mg of Seroquel twice a day. He remains on a mechanical ventilator on a pressure control at the rate of 18 with a pressure control of 20 FiO2 of 40% with a PEEP of 5. Rest or secretions are still active and the patient is being suctioned adequately. He is on IV cefepime as the patient was Serratia marcescens in his sputum. Chest x-ray from today is essentially the same. Tracheostomy tube is in a good location. The patient remains hemodynamically stable. Patient is bronchodilators and patient remains on steroids. He is on IV Solu Medrol 60 mg every 6 hours. Blood gases from today shows a pH of 7.42 with a pCO2 of 69 and pO2 of 62. He was having significant amount of third spacing and edema. He was given a dose of Lasix yesterday with adequate diuresis. His net fluid balance is -1.4 L since yesterday. He continues to receive enteral feeding and the patient is currently on Nepro at the rate of 27 mL an hour. His cardiac rhythm remains sinus. He remains on anticoagulation with Eliquis. The main issue for now this is generalized debility and advanced lung disease. His mentation is also poor and the patient is extremely weak which obviously is affecting his further weaning process. Meanwhile, the patient's chest x-ray from today is essentially clear and tracheostomy tube is in a good location. On and off, the patient developed some leak around the tracheostomy tube requiring more air in the balloon. Labs from today shows a sodium level of 143, potassium level is at 3.9, serum bicarbonate of 42 with a in a 59 and creatinine 0.6. The white cell count is at 19.7 with a hemoglobin of 10.1. Reevaluated today on 04/20/22, patient remains in ICU, presently on pressure control mode of mechanical ventilation with pressure control of 20 inspiratory time of 0.9 rate of 18 FiO2 100% and I cut it down to 80% PEEP of 5 and I increased it to 10. ABG today showed a pO2 of 50 pCO2 75 pH of 7.37. Patient remains on cefepime for his Serratia pneumonia. Remains on eliquis, he is also on Nepro enteral feeding at 27 mL/h, patient is on clevidipine and on IV fluid at 0.9 KVO. WBC count is 26.4 hemoglobin is 10.1 basic metabolic profile is basically normal. BUN is 62 creatinine 0.74, liver enzymes are relatively normal. Patient is not requiring any propofol at present, he is however on Seroquel. Last night his FiO2 had to be increased. And today I had to increase his PEEP, cut down his FiO2 back to 80%, no plans to initiate any weaning trials whatsoever today, patient is not a candidate for any weaning at this point. As a matter of fact his prognosis is getting worse on a daily basis. No family members available at bedside. Chest x-ray is basically not showing much of a change in his infiltrates, continues to have significant airspace disease mostly in the left lower lobe Reevaluated today on 04/21/22, patient remains in the ICU, remains intubated and mechanically ventilated, he is on pressure control mode of mechanical ventilation, blood pressure control of 20 inspiratory time of 0.9, FiO2 60% PEEP of 10 rate of 18. ABG showed a pO2 of 72 pCO2 65 pH of 7.44. Remains on enteral feeding/Nepro remains on cefepime is also on Solu-Medrol 60 mg IV push every 6 hours Cleviprex at 10 mg/h and he is on eliquis. Not much of a change overnight, chest x-ray today showed slight worsening of the pneumonia in the left lower lobe. Patient is arousable, however he seems to be quite restless and agitated with the tracheostomy, he follows simple instructions like squeezing hands and wiggling toes. Seems to be appropriate and that as he seems to be quite agitated. WBC count is elevated at 24.6 hemoglobin is 9.2, basic metabolic profile is relatively unremarkable except for bicarb of 41 pH Reevaluated today on 04/22/22, patient remains intubated mechanically ventilated he is on pressure control of 20 inspiratory time of 0.9 rate of 18 FiO2 50% PEEP down to 5 ABG showed a pO2 of 105 pCO2 65 pH 7.42 hence his PEEP was cut down to 5 and FiO2 the same. Today I'm getting give the patient a trial of pressure support of 14 and CPAP of 5. Will continue the same mode as long as tolerated possibly today. Patient had at least 3 attempts of trial to wean on 04/20, 04/21 and today, doubt the patient will tolerate weaning but we will continue to try anyway. Again I'm trying to pressure support of 14 and pressure support of 14 and CPAP 5. Chest x-ray continues to show extensive disease/disease in the lower lobe especially in the left lower lobe. Hence the patient remains on antibiotics. Continues to have leukocytosis with WBC of 23.8 hemoglobin is 8.8 basic metabolic profile is normal bicarb is 39 BUN is 77 creatinine 0.43. Patient remains on enteral feeding, using Nepro at 27 mL per hour. Remains on GI and DVT prophylaxis. Objective - Vital Signs Vital signs: Vital Signs Temp 98.1 F 04/22/22 04:00 Pulse 83 04/22/22 11:00 Resp 18 04/22/22 11:00 BP 144/61 04/22/22 11:00 Pulse Ox 93 L 04/22/22 11:00 FiO2 50 04/22/22 10:42 Intake & Output 04/21/22 04/22/22 04/22/22 18:59 06:59 18:59 Intake Total 1366.133 650.667 208.333 Output Total 985 610 340 Balance 381.133 40.667 -131.667 Weight 82 kg 83 kg Intake: IV 586 156 52 Cefepime 2 gm In Sodium 200 Chloride 0.9% 100 ml @ 25 mls/hr IVPB Q8H [facility] Rx#: [id number] Potassium Chloride 10 meq 200 In Water For Injection 1 100ml.bag @ 100 mls/hr IVPB Q1H [facility] Rx#: [id number] Sodium Chloride 0.9% 150 120 40 pressure bag 36 36 12 Intake, IV Titration 206.133 80.667 18.333 Amount Clevidipine Butyrate 25 206.133 80.667 18.333 mg In Empty Bag 1 bag @ 1 MG/HR 2 mls/hr IV .Q24H [facility] Rx#:[id number] Tube Feeding 324 324 108 Other 250 90 30 Output: Urine 985 610 340 Other: Voiding Method Indwelling Catheter Indwelling Catheter ABP, PAP, CO, CI - Last Documented Arterial Blood Pressure 106/51 - Exam GENERAL: Reveals a 71-year-old white male on mechanical ventilation, awake, off propofol, follows simple instructions. But a bit restless HEENT: PERRLA, EOMI, anicteric, no neck masses, no JVD, tracheostomy seems to be intact. CARDIOVASCULAR: Distant S1 and S2 no S3 gallop. No murmur. PULMONARY: Symmetrical chest expansion, crackles and rhonchi persist bilaterally ABDOMEN: Soft nontender no megaly no rebound no guarding, positive bowel sounds. MUSCULOSKELETAL: No deformities and no limitation in range of motion EXTREMITIES: Mild clubbing, 2+ bipedal edema and edema noted in upper e xtremities bilaterally., no cyanosis NEUROLOGICAL: Arousable, follows simple instructions, less agitated today compared to yesterday. SKIN: No rashes. Psychiatric:Unable to fully assess - Labs CBC & Chem 7: 04/22/22 05:30 04/22/22 05:30 Labs: Abnormal Lab Results - Last 24 Hours (Table) 04/21/22 04/22/22 04/22/22 Range/Units 23:55 05:07 05:30 WBC 23.8 H (3.8-10.6) k/uL RBC 2.92 L (4.30-5.90) m/uL Hgb 8.8 L (13.0-17.5) gm/dL Hct 29.4 L (39.0-53.0) % MCV 100.6 H (80.0-100.0) fL MCHC 30.1 L (31.0-37.0) g/dL RDW 20.8 H (11.5-15.5) % Neutrophils # 23.0 H (1.3-7.7) k/uL Lymphocytes # 0.2 L (1.0-4.8) k/uL ABG pCO2 65 H (35-45) mmHg ABG HCO3 42 H* (21-25) mmol/L ABG Total CO2 44 H (19-24) mmol/L ABG O2 Saturation 98.7 H (94-97) % ABG Hematocrit 26 L (34.0-46.0) % Hemoglobin 8.6 L (13.0-17.5) gm/dL Carbon Dioxide (22-30) mmol/L BUN (9-20) mg/dL Creatinine (0.66-1.25) mg/dL Glucose (74-99) mg/dL POC Glucose (mg/dL) 128 H (70-110) mg/dL Total Protein (6.3-8.2) g/dL Albumin (3.5-5.0) g/dL 04/22/22 04/22/22 04/22/22 Range/Units 05:30 05:33 12:12 WBC (3.8-10.6) k/uL RBC (4.30-5.90) m/uL Hgb (13.0-17.5) gm/dL Hct (39.0-53.0) % MCV (80.0-100.0) fL MCHC (31.0-37.0) g/dL RDW (11.5-15.5) % Neutrophils # (1.3-7.7) k/uL Lymphocytes # (1.0-4.8) k/uL ABG pCO2 (35-45) mmHg ABG HCO3 (21-25) mmol/L ABG Total CO2 (19-24) mmol/L ABG O2 Saturation (94-97) % ABG Hematocrit (34.0-46.0) % Hemoglobin (13.0-17.5) gm/dL Carbon Dioxide 39 H (22-30) mmol/L BUN 77 H (9-20) mg/dL Creatinine 0.43 L (0.66-1.25) mg/dL Glucose 125 H (74-99) mg/dL POC Glucose (mg/dL) 141 H 131 H (70-110) mg/dL Total Protein 4.6 L (6.3-8.2) g/dL Albumin 2.2 L (3.5-5.0) g/dL Assessment and Plan Assessment: Impression: Acute on chronic hypoxic and hypercapnic respiratory failure intubated on 03/31, tracheostomy and PEG tube placement on 04/06, failure to wean from mechanical ve ntilation. Bilateral pneumonia secondary to Serratia marcescens and Haemophilus influenza, on cefepime, COVID-19 infection confirmed on 04/10 and positive on 04/13, likely contracted from his who was also positive. Acute exacerbation of COPD History of squamous cell lung cancer diagnosed on 01/01/2022. Given systemic chemotherapy. Previous history of respiratory failure requiring intubation and mechanical ventilation tracheostomy and PEG tube placement, this was over 4 years ago. Generalized anxiety disorder. Severe COPD, FEV1 less than 35%. Degenerative joint disease Acute kidney injury Electrolytes imbalance with hyperkalemia and hyperchloremia as well as hypernatremia, improving. Bilateral cortical parietal ischemic changes, possible ischemic stroke. Recommendation: Give the patient trial of weaning today utilizing a pressure support of 14 and CPAP. Continue ventilatory support, otherwise. Continue nutritional support, patient is on enteral feeding Continue bronchodilators Continue cefepime Continue Seroquel. Continue eliquis for anticoagulation Continue Solu-Medrol. Continue GI and DVT prophylaxis Lal trials of weaning if possible, multiple attempts as noted earlier have f landry but we will try again and will continue to try on a daily basis. Patient is again on 50% FiO2 and PEEP of 5. Continue diuretics. Patient has third spacing. Prognosis remains extremely poor and guarded We'll discuss with family CODE STATUS again Discussed with manager social work possible placement. Critical care time is over 30 minutes Time with Patient: Greater than 30
[2022-04-22] MEDS: NOREPINEPHRINE 4 MG in SODIUM CHLORIDE 0.9% 250 ML IV SCH (12:47)
[2022-04-22] MEDS: CLEVIDIPINE BUTYRATE 25 MG in EMPTY BAG 1 BAG IV SCH ×3 (16:19→22:58)
[2022-04-22 18:00] LABS: Glucose,Whole Blood 107 mg/dL (70-110)
[2022-04-22] MEDS ORDERED: CISATRACURIUM 2 MG/ML 5 ML VIAL IV ONE (18:31)
[2022-04-22] MEDS: CISATRACURIUM 2 MG/ML 5 ML VIAL IV ONE (18:57)
--- NOTE | 2022-04-22 19:28 | XR ---
EXAMINATION: XR chest 1V portable / AP portable semiupright radiograph 04/22/2022 6:24 PM CLINICAL INDICATION: decreased volumes TECHNIQUE: Departmental protocol COMPARISON: AP portable semiupright chest radiograph 04/22/2022 at 5:26 AM FINDINGS: Endotracheal tube tip superimposed over the mid trachea. Left upper extremity PICC line tip superimpo sed over the distal SVC. EKG leads. Lung parenchyma: There is interval increase in the bilateral mid and lower lobe infiltrates, with fra nk consolidation now seen in the retrocardiac left lower lobe, and with increasing consolidation in t he right infrahilar position. The pleural spaces are negative as seen, the costophrenic sulci are not included on this radiograph. The cardiac silhouette is not enlarged. The skeletal structures and soft tissues are negative for acute findings. IMPRESSION: Interval worsening in the lung inflation pattern compared to the prior study.
[2022-04-22] MEDS: ATORVASTATIN 10 MG TAB PO SCH (21:15)
[2022-04-22 23:59] LABS: Glucose,Whole Blood 135 mg/dL (70-110)
[2022-04-23] MEDS: INSULIN ASPART (NovoLOG) 100 UNIT/ML VIAL SQ SCH ×8 (00:55→18:50)
[2022-04-23] MEDS: methylPREDNISolone SOD SUCCI 125 MG/2 ML VIAL IV SCH ×4 (01:00→18:49)
[2022-04-23] MEDS: HYDROmorphone 1 MG/ML 1 ML SYRINGE IVP PRN ×8 (01:03→23:04)
[2022-04-23] MEDS: LORazepam 1 MG/0.5 ML VIAL IV PRN ×3 (03:31→16:09)
[2022-04-23] MEDS: CEFEPIME 2 GM in SODIUM CHLORIDE 0.9% 100 ML IVPB SCH ×2 (03:33→09:03)
[2022-04-23] MEDS: NOREPINEPHRINE 4 MG in SODIUM CHLORIDE 0.9% 250 ML IV SCH (03:34)
[2022-04-23] MEDS: ALBUTEROL HFA INHALER INHALATION SCH ×6 (04:24→19:57)
[2022-04-23 04:43] LABS: Anisocytosis Moderate; HCT 31.4 % (39.0-53.0); HGB 9.3 gm/dL (13.0-17.5); Hypochromasia Marked; MCHC 29.7 g/dL (31.0-37.0); MCV 101.1 fL (80.0-100.0); Macrocytosis Moderate; Mean Platelet Volume 9.1; Platelet Count 252 k/uL (150-450); RBC 3.11 m/uL (4.30-5.90); RDW 20.7 % (11.5-15.5); WBC 25.3 k/uL (3.8-10.6)
[2022-04-23 04:54] LABS: ALT 42 U/L (4-49); AST 34 U/L (17-59); African American GFR (CKD) >90 (>60 ml/min/1.73 sqM); Albumin 2.4 g/dL (3.5-5.0); Alkaline Phosphatase 119 U/L (38-126); Blood Urea Nitrogen 65 mg/dL (9-20); Calcium 8.8 mg/dL (8.4-10.2); Chloride 104 mmol/L (98-107); Glucose 148 mg/dL (74-99); Non-African American GFR(CKD) >90 (>60 ml/min/1.73 sqM); Sodium 147 mmol/L (137-145); Total Bilirubin 0.3 mg/dL (0.2-1.3); Total Protein 4.6 g/dL (6.3-8.2)
[2022-04-23 05:01] LABS: Anion Gap 2 mmol/L
[2022-04-23 05:11] LABS: Carbon Dioxide 41 mmol/L (22-30)
[2022-04-23 05:51] LABS: ABG Base Excess 14.4 mmol/L; ABG Hematocrit 27 % (34.0-46.0); ABG Oxygen Saturation 97.1 % (94-97); ABG PH 7.32 (7.35-7.45); ABG PO2 91 mmHg (83-108); ABG TCO2 43 mmol/L (19-24); Allen Test Performed? Yes
[2022-04-23 05:53] LABS: ABG PCO2 79 mmHg (35-45)
[2022-04-23 05:54] LABS: ABG HCO3 41 mmol/L (21-25)
[2022-04-23 06:11] LABS: Glucose,Whole Blood 167 mg/dL (70-110)
[2022-04-23] MEDS: CLEVIDIPINE BUTYRATE 25 MG in EMPTY BAG 1 BAG IV SCH ×4 (06:48→21:45)
[2022-04-23] MEDS: INSULIN DETEMIR (LEVEMIR) 100 UNIT/ML SYR SQ SCH (06:49)
[2022-04-23] MEDS: SYMBICORT 160-4.5 MCG INHALER INHALATION SCH ×2 (07:15→19:57)
--- NOTE | 2022-04-23 08:05 | P.PN ---
Subjective Principal diagnosis: Respiratory failure This is 71 white male with known history of COPD who is not intubated but slowly weaning. The patient is on FiO2 50 percent.PEEP of 10. Still with left basal consolidation x-ray yesterday. Difficulty weaning. He is not following commands Long-term prognosis is poor Pulmonology noted. Objective - Vital Signs Vital signs: Vital Signs Temp 98.7 F 04/23/22 04:00 Pulse 78 04/23/22 07:00 Resp 14 04/23/22 07:00 BP 122/64 04/23/22 03:00 Pulse Ox 95 04/23/22 07:00 FiO2 60 04/23/22 07:10 Intake & Output 04/22/22 04/23/22 04/23/22 18:59 06:59 18:59 Intake Total 588.333 699.800 49 Output Total 1140 735 50 Balance -551.667 -35.200 -1 Weight 83.8 kg Intake: IV 156 156 13 Sodium Chloride 0.9% 120 120 10 pressure bag 36 36 3 Intake, IV Titration 18.333 129.800 9 Amount Clevidipine Butyrate 25 18.333 129.800 9 mg In Empty Bag 1 bag @ 1 MG/HR 2 mls/hr IV .Q24H [facility] Rx#:[id number] Tube Feeding 324 324 27 Other 90 90 Output: Urine 1140 735 50 Other: Voiding Method Indwelling Catheter Indwelling Catheter ABP, PAP, CO, CI - Last Documented Arterial Blood Pressure 165/52 - Constitutional Constitutional Comment(s): The patient seems agitated with his head movements General appearance: Present: mild distress - EENT Eyes: Absent: abnormal pupil - Neck Neck: Absent: lymphadenopathy - Respiratory Respiratory: bilateral: diminished - Cardiovascular Rhythm: regular Heart sounds: normal: S1, S2 Abnormal Heart Sounds: Absent: S3 Gallop - Gastrointestinal General gastrointestinal: Present: soft. Absent: tenderness - Integumentary Integumentary: Absent: cellulitis - Psychiatric Psychiatric: Absent: A&O x's 3, appropriate affect - Labs CBC & Chem 7: 04/23/22 03:58 04/23/22 03:58 Labs: Abnormal Lab Results - Last 24 Hours (Table) 04/22/22 04/22/22 04/23/22 Range/Units 12:12 23:57 03:58 WBC 25.3 H (3.8-10.6) k/uL RBC 3.11 L (4.30-5.90) m/uL Hgb 9.3 L (13.0-17.5) gm/dL Hct 31.4 L (39.0-53.0) % MCV 101.1 H (80.0-100.0) fL MCHC 29.7 L (31.0-37.0) g/dL RDW 20.7 H (11.5-15.5) % ABG pH (7.35-7.45) ABG pCO2 (35-45) mmHg ABG HCO3 (21-25) mmol/L ABG Total CO2 (19-24) mmol/L ABG O2 Saturation (94-97) % ABG Hematocrit (34.0-46.0) % Hemoglobin (13.0-17.5) gm/dL Sodium (137-145) mmol/L Carbon Dioxide (22-30) mmol/L BUN (9-20) mg/dL Creatinine (0.66-1.25) mg/dL Glucose (74-99) mg/dL POC Glucose (mg/dL) 131 H 135 H (70-110) mg/dL Total Protein (6.3-8.2) g/dL Albumin (3.5-5.0) g/dL 04/23/22 04/23/22 04/23/22 Range/Units 03:58 05:47 06:10 WBC (3.8-10.6) k/uL RBC (4.30-5.90) m/uL Hgb (13.0-17.5) gm/dL Hct (39.0-53.0) % MCV (80.0-100.0) fL MCHC (31.0-37.0) g/dL RDW (11.5-15.5) % ABG pH 7.32 L (7.35-7.45) ABG pCO2 79 H* (35-45) mmHg ABG HCO3 41 H* (21-25) mmol/L ABG Total CO2 43 H (19-24) mmol/L ABG O2 Saturation 97.1 H (94-97) % ABG Hematocrit 27 L (34.0-46.0) % Hemoglobin 8.8 L (13.0-17.5) gm/dL Sodium 147 H (137-145) mmol/L Carbon Dioxide 41 H* (22-30) mmol/L BUN 65 H (9-20) mg/dL Creatinine 0.65 L (0.66-1.25) mg/dL Glucose 148 H (74-99) mg/dL POC Glucose (mg/dL) 167 H (70-110) mg/dL Total Protein 4.6 L (6.3-8.2) g/dL Albumin 2.4 L (3.5-5.0) g/dL Assessment and Plan (1) COPD (chronic obstructive pulmonary disease) Current Visit: Yes Status: Acute Code(s): J44.9 - CHRONIC OBSTRUCTIVE PULMON MUSHTAQ DISEASE, UNSPECIFIED SNOMED Code(s): 96940540 (2) Acute exacerbation of chronic obstructive pulmonary disease Current Visit: No Status: Acute Code(s): J44.1 - CHRONIC OBSTRUCTIVE PULMONARY DISEASE W (ACUTE) EXACERBATION SNOMED Code(s): 910033399 (3) Acute respiratory failure Current Visit: No Status: Acute Code(s): J96.00 - ACUTE RESPIRATORY FAILURE, UNSP W HYPOXIA OR HYPERCAPNIA SNOMED Code(s): 25823828 (4) Pneumonia Current Visit: No Status: Acute Code(s): J18.9 - PNEUMONIA, UNSPECIFIED ORGANISM SNOMED Code(s): 833818343 (5) Hilar mass Current Visit: Yes Status: Acute Code(s): R91.8 - OTHER NONSPECIFIC ABNORMAL FINDING OF LUNG FIELD SNOMED Code(s): 574827725 Plan: Still with hypercarbia We'll continue to follow with multiple consultants. Continue current regimen of treatment. Appreciate multiple consultants input. Check CBC and CMP in a.m.
[2022-04-23] MEDS: CHLORHEXIDINE GLUCONATE 15 ML CUP MUCOUS MEM SCH ×2 (08:09→20:43)
[2022-04-23] MEDS: PANTOPRAZOLE 40 MG/10 ML VIAL IVP SCH (08:10)
[2022-04-23] MEDS: QUEtiapine 100 MG TAB PO SCH ×2 (08:10→20:43)
[2022-04-23] MEDS: CHOLECALCIFEROL 25 MCG (1000 IU) TABLET PO SCH (08:10)
[2022-04-23] MEDS: APIXABAN 5 MG TAB PO SCH ×2 (08:10→20:42)
[2022-04-23] MEDS: amLODIPine 10 MG TAB PO SCH (08:10)
[2022-04-23] MEDS: GABAPENTIN 300 MG CAP PO SCH ×3 (08:10→22:13)
[2022-04-23] MEDS: hydrALAZINE HCL 20 MG/ML 1 ML VIAL IVP PRN ×3 (08:50→18:48)
[2022-04-23] MEDS ORDERED: propofoL 100 ML IV ONE (10:44)
[2022-04-23] MEDS: CISATRACURIUM 2 MG/ML 5 ML VIAL IV ONE (10:59)
[2022-04-23 11:36] LABS: Glucose,Whole Blood 161 mg/dL (70-110)
--- NOTE | 2022-04-23 12:01 | XR ---
EXAMINATION TYPE: XR chest 1V portable DATE OF EXAM: 04/23/2022 COMPARISON: 04/22/2022 HISTORY: Status post tracheostomy TECHNIQUE: Single frontal view of the chest is obtained. FINDINGS: Tracheostomy tube seen with the tip approximately 5 cm above the artemio. Left-sided PICC l ine is seen and there is diffuse emphysematous changes with persistent left lower lobe infiltrate. No sizable pneumothorax is visualized. Heart size normal. Atherosclerotic change aorta. Mild fullness o f the left hilum. IMPRESSION: 1. COPD with left lower lobe infiltrate. There is mild fullness to the left hilum which could be rela loco to pulmonary arterial hypertension. Underlying adenopathy not excluded.
--- NOTE | 2022-04-23 12:14 | P.PN ---
Subjective Progress Note Date: 04/23/22 Principal diagnosis: Acute on chronic hypoxic and hypercapnic respiratory failure secondary to COPD, bronchogenic carcinoma, and Serratia marcescens pneumonia This is a 71-year-old white male with chronic hypoxic and hypercapnic respiratory failure severe end-stage COPD, previous history of respiratory failure requiring intubation and mechanical ventilation history of non-small cell lung cancer diagnosed back in December of 2021. Patient presented to the hospital with 2 days history of increased shortness of breath, associated with cough, some wheezing, patient is normally maintained on oxygen and on prednisone as well as theophylline and many other bronchodilators. Has been very compliant with his medications. Admitted through the emergency room with acute on chronic hypoxic and hypercapnic respiratory failure patient was placed on relatively high FiO2 and BiPAP. Condition deteriorated and the patient went on to develop worsening hypercapnic respiratory failure requiring transfer to the ICU, intubation, mechanical ventilation, and I'm seeing him today on consultation. Patient is sedated, he is on propofol. His ventilator settings are assist control rate of 20, volume 450 FiO2 35% and PEEP of 5 ABG earlier on 70% showed a pO2 of 299 pCO2 of 62 pH of 7.32. Patient is on propofol at 50 mcg/kg/m, 0.9 normal saline at 1 25 mL per hour, norepinephrine at 0.4 mcg/kg/m. Patient did receive fluid boluses yesterday, today antibiotics were added and sputum cultu res are pending. Patient will be placed empirically on Zosyn. Chest x-ray showed evidence of mass in the left pulmonary hilar area which is basically his original bronchogenic carcinoma minimal infiltrate in the left lower lobe and there is hyperinflation as well as coarse interstitial densities in both lower lobes. Nasogastric tube was noted to be in the proper position endotracheal tube in the proper position. Family is at bedside, updated the family on his condition, and we will likely give the patient a trial of weaning however the patient is known to have significant history of anxiety and I will try to use Precedex, pressure support mode of mechanical ventilation with a pressure pereira pport of 12 and CPAP after taking the patient off propofol if possible. Reevaluated today 04/02/22, patient remains in the ICU, intubated and mechanically ventilated. He is on assist control rate of 20 to volume 450 FiO2 35% and PEEP of 5. ABG showed a pO2 of 101 pCO2 of 55 pH of 7.32. Patient is on propofol at 30 mcg/kg/m he is also on 0.9 normal saline at 1 25 mL per hour. He is not requiring any pressors, no inotropes are needed. And no diuretics are needed. Patient was given a trial of weaning again today and he did not do well. As soon as the propofol placed on hold, patient became extremely short of breath, tachypnea, tachycardic, and he was having even rough time on assist cont rol mode of mechanical ventilation. Hence did not even get a chance to place the patient on pressure support mode of mechanical ventilation. Hence placed back on assist control mode and discussed with the family the different options with the patient. He will likely require tracheostomy and PEG tube placement, unless the family decides on possible comfort care measures. In the meantime we will try to continue daily assessment for weaning, but I have a strong feeling that the patient will not wean easily and may require again tracheostomy and PEG tube placement. Family would like to discuss this among themselves, and they will let me know whether they are agreeable to proceed with comfort care measures down the line. Patient again has severe end-stage COPD and he has bronchogenic carcinoma. Reevaluated today on 04/03/22, patient remains in the ICU intubated and mechanically ventilated. He is now on assist control rate of 20 to volume 450 FiO2 35% and PEEP of 5. Peak airway pressure is 35. His ABG showed a pO2 of 106 pCO2 56 pH of 7.34. Patient remains on 35% FiO2. Patient is off norepinephrine he remains on normal saline at 50 mL an hour and on propofol at 50 mcg/kg/m. Patient is receiving vital Hp at 50 mL/h the goal is 50. On physical examination continues to have rhonchi and wheezes bilaterally chest x- rays showing slight improvement in his bilateral infiltrates. Left hilar mass remains the same. Hence I have no plans to wean the patient today, and the family has made a decision that the patient does not wean in the next few days, they would like him to proceed with tracheostomy and PEG tube placement and eventual placement. We will decide this early next week in the meantime patient is not related to believe that extubated. CBC is relatively unremarkable WBC 7.3 hemoglobin is 8.8, basic metabolic profile is relatively normal, BUN is 67 creatinine is 1.36 hence we will increase his IV fluid to 75 mL Reevaluated today on 04/04/22, patient remains in the ICU, intubated and mechanically ventilated. Not much of a guide changer the last 24 hours, patient remains on assist control rate of 20 to volume 450 FiO2 35% and PEEP of 5. ABG showed a pO2 of 69 pCO2 of 67 pH of 7.29. Hence we'll increase his rate to 24. Patient remains on propofol at 50 mcg/kg/m, IV fluid 0.9 normal saline at 75 mL per hour. He is receiving vital HP at 50 mL per hour/cor. His sputum is coming back positive for Serratia and Haemophilus influenza both are covered with Zosyn. Patient has been on Zosyn all along. Patient is sedated however I will try to awaken the patient today, and assess mental status. On physical examination he continues to have tightness and wheezing and I don't believe the patient is ready to have any weaning trials again. Today I even discussed the situation all over with the family about possible tracheostomy PEG tube placement PICC line placement and eventual placement and a ventilator facility. I also discussed the option of comfort care measures. Family seems to be inclined to proceed with tracheostomy and PEG tube placement as well as PICC line placement and eventual transfer to a ventilator facility/selective care specialty. Prognosis is obviously very poor, and the family is very well aware that the patient has poor prognosis with severe end-stage COPD and bronchogenic carcinoma. WBC count is 8.8 hemoglobin is 9.7, basic metabolic profile is normal BUN is 60 creatinine 0.68. For some reason a CT angio the chest was ordered yesterday, no evidence of pulmonary embolism clinically I never thought that the patient had pulmonary embolism and the clinical presentation is not a presentation of pulmonary embolism. 04/19/2022, the patient intermittently follows commands and his condition is essentially same as yesterday without any major changes. At times, he follows simple commands such as raising his eyebrows or wiggling his toes. He is only receiving Ativan. No others IV sedation for now. He is also on 100 mg of Seroquel twice a day. He remains on a mechanical ventilator on a pressure control at the rate of 18 with a pressure control of 20 FiO2 of 40% with a PEEP of 5. Rest or secretions are still active and the patient is being suctioned adequately. He is on IV cefepime as the patient was Serratia marcescens in his sputum. Chest x-ray from today is essentially the same. Tracheostomy tube is in a good location. The patient remains hemodynamically stable. Patient is bronchodilators and patient remains on steroids. He is on IV Solu Medrol 60 mg every 6 hours. Blood gases from today shows a pH of 7.42 with a pCO2 of 69 and pO2 of 62. He was having significant amount of third spacing and edema. He was given a dose of Lasix yesterday with adequate diuresis. His net fluid balance is -1.4 L since yesterday. He continues to receive enteral feeding and the patient is currently on Nepro at the rate of 27 mL an hour. His cardiac rhythm remains sinus. He remains on anticoagulation with Eliquis. The main issue for now this is generalized debility and advanced lung disease. His mentation is also poor and the patient is extremely weak which obviously is affecting his further weaning process. Meanwhile, the patient's chest x-ray from today is essentially clear and tracheostomy tube is in a good location. On and off, the patient developed some leak around the tracheostomy tube requiring more air in the balloon. Labs from today shows a sodium level of 143, potassium level is at 3.9, serum bicarbonate of 42 with a in a 59 and creatinine 0.6. The white cell count is at 19.7 with a hemoglobin of 10.1. Reevaluated today on 04/20/22, patient remains in ICU, presently on pressure control mode of mechanical ventilation with pressure control of 20 inspiratory time of 0.9 rate of 18 FiO2 100% and I cut it down to 80% PEEP of 5 and I increased it to 10. ABG today showed a pO2 of 50 pCO2 75 pH of 7.37. Patient remains on cefepime for his Serratia pneumonia. Remains on eliquis, he is also on Nepro enteral feeding at 27 mL/h, patient is on clevidipine and on IV fluid at 0.9 KVO. WBC count is 26.4 hemoglobin is 10.1 basic metabolic profile is basically normal. BUN is 62 creatinine 0.74, liver enzymes are relatively normal. Patient is not requiring any propofol at present, he is however on Seroquel. Last night his FiO2 had to be increased. And today I had to increase his PEEP, cut down his FiO2 back to 80%, no plans to initiate any weaning trials whatsoever today, patient is not a candidate for any weaning at this point. As a matter of fact his prognosis is getting worse on a daily basis. No family members available at bedside. Chest x-ray is basically not showing much of a change in his infiltrates, continues to have significant airspace disease mostly in the left lower lobe Reevaluated today on 04/21/22, patient remains in the ICU, remains intubated and mechanically ventilated, he is on pressure control mode of mechanical ventilation, blood pressure control of 20 inspiratory time of 0.9, FiO2 60% PEEP of 10 rate of 18. ABG showed a pO2 of 72 pCO2 65 pH of 7.44. Remains on enteral feeding/Nepro remains on cefepime is also on Solu-Medrol 60 mg IV push every 6 hours Cleviprex at 10 mg/h and he is on eliquis. Not much of a change overnight, chest x-ray today showed slight worsening of the pneumonia in the left lower lobe. Patient is arousable, however he seems to be quite restless and agitated with the tracheostomy, he follows simple instructions like squeezing hands and wiggling toes. Seems to be appropriate and that as he seems to be quite agitated. WBC count is elevated at 24.6 hemoglobin is 9.2, basic metabolic profile is relatively unremarkable except for bicarb of 41 pH Reevaluated today on 04/22/22, patient remains intubated mechanically ventilated he is on pressure control of 20 inspiratory time of 0.9 rate of 18 FiO2 50% PEEP down to 5 ABG showed a pO2 of 105 pCO2 65 pH 7.42 hence his PEEP was cut down to 5 and FiO2 the same. Today I'm getting give the patient a trial of pressure support of 14 and CPAP of 5. Will continue the same mode as long as tolerated possibly today. Patient had at least 3 attempts of trial to wean on 04/20, 04/21 and today, doubt the patient will tolerate weaning but we will continue to try anyway. Again I'm trying to pressure support of 14 and pressure support of 14 and CPAP 5. Chest x-ray continues to show extensive disease/disease in the lower lobe especially in the left lower lobe. Hence the patient remains on antibiotics. Continues to have leukocytosis with WBC of 23.8 hemoglobin is 8.8 basic metabolic profile is normal bicarb is 39 BUN is 77 creatinine 0.43. Patient remains on enteral feeding, using Nepro at 27 mL per hour. Remains on GI and DVT prophylaxis. Reevaluated today on 04/23/22, patient remains in the ICU, intubated and mechanically ventilated. He is on assist control of 20, volume 500 FiO2 50% PEEP of 5, ABG showed a pO2 of 91 pCO2 79 pH of 7.32, however the patient had issues with the tracheostomy and cuff leak overnight. Today we went ahead and changed his tracheostomy and place a new one, and so far seems to be working well. Hopefully later today the patient could be given another trial of weaning with pressure support and CPAP, he failed multiple previous attempts with pressure support and CPAP. But we will continue trying every day. In the meantime I will try to discontinue his Cleviprex and start the patient on hydralazine he is also on amlodipine as well as clonidine, blood pressure seems to be better controlled nonetheless is still requiring Cleviprex drip today at 12 mg per hour. Patient is not requiring any pressors. He is requiring Ativan intermittently. And he is also on Nepro enteral feeding. Today no major change was made in the ventilator settings except he was placed on the percent at the time when we bronchoscope the patient and changed his tracheostomy tube today. Labs today showed WBC count 25.3 hemoglobin is 9.3 sodium is 147 potassium 4.0 chloride 104 BUN 65 creatinine 0.65. Hence I will change his main IV fluid to D5 for 5 or D5W. To help lower down his sodium. May even consider free water f lushes. Repeat PCR for COVID-19 was positive again today. Patient remains on updrafts, he is also on Lipitor, eliquis 5 mg twice a day, hydralazine was added today. Patient is on Dilaudid, he is also on gabapentin, remains on Seroquel at 100 mg by mouth twice a day and Requip. Remains on methylprednisolone 60 every 6, he is off antibiotics. Objective - Vital Signs Vital signs: Vital Signs Temp 97.7 F 04/23/22 08:00 Pulse 88 04/23/22 11:00 Resp 20 04/23/22 11:00 BP 130/68 04/23/22 11:00 Pulse Ox 94 L 04/23/22 11:00 FiO2 60 04/23/22 11:20 Intake & Output 04/22/22 04/23/22 04/23/22 18:59 06:59 18:59 Intake Total 588.333 699.800 261.6 Output Total 1140 735 580 Balance -551.667 -35.200 -318.4 Weight 83.8 kg 83.8 kg Intake: IV 156 156 65 Sodium Chloride 0.9% 120 120 50 pressure bag 36 36 15 Intake, IV Titration 18.333 129.800 58.6 Amount Clevidipine Butyrate 25 18.333 129.800 58.6 mg In Empty Bag 1 bag @ 1 MG/HR 2 mls/hr IV .Q24H [facility] Rx#:[id number] Tube Feeding 324 324 108 Other 90 90 30 Output: Urine 1140 735 580 Other: Voiding Method Indwelling Catheter Indwelling Catheter Indwelling Catheter ABP, PAP, CO, CI - Last Documented Arterial Blood Pressure 131/38 - Exam GENERAL: Reveals a 71-year-old white male on mechanical ventilation, sedated, not in distress. HEENT: PERRLA, EOMI, anicteric, no neck masses, no JVD, tracheostomy was noted to have significant cuff leak, and this was changed today. CARDIOVASCULAR: Distant S1 and S2 no S3 gallop. No murmur. PULMONARY: Symmetrical chest expansion, crackles persist bilaterally. ABDOMEN: Soft nontender no megaly no rebound no guarding, positive bowel sounds. MUSCULOSKELETAL: No deformities and no limitation in range of motion EXTREMITIES: Mild clubbing, 2+ bipedal edema and edema noted in upper extrem ities bilaterally., no cyanosis NEUROLOGICAL: Cannot assess, fully sedated this morning SKIN: No rashes. Psychiatric:Unable to fully assess - Labs CBC & Chem 7: 04/23/22 03:58 04/23/22 03:58 Labs: Abnormal Lab Results - Last 24 Hours (Table) 04/22/22 04/22/22 04/23/22 Range/Units 12:12 23:57 03:58 WBC 25.3 H (3.8-10.6) k/uL RBC 3.11 L (4.30-5.90) m/uL Hgb 9.3 L (13.0-17.5) gm/dL Hct 31.4 L (39.0-53.0) % MCV 101.1 H (80.0-100.0) fL MCHC 29.7 L (31.0-37.0) g/dL RDW 20.7 H (11.5-15.5) % ABG pH (7.35-7.45) ABG pCO2 (35-45) mmHg ABG HCO3 (21-25) mmol/L ABG Total CO2 (19-24) mmol/L ABG O2 Saturation (94-97) % ABG Hematocrit (34.0-46.0) % Hemoglobin (13.0-17.5) gm/dL Sodium (137-145) mmol/L Carbon Dioxide (22-30) mmol/L BUN (9-20) mg/dL Creatinine (0.66-1.25) mg/dL Glucose (74-99) mg/dL POC Glucose (mg/dL) 131 H 135 H (70-110) mg/dL Total Protein (6.3-8.2) g/dL Albumin (3.5-5.0) g/dL Coronavirus (PCR) (Not Detectd) 04/23/22 04/23/22 04/23/22 Range/Units 03:58 05:47 06:10 WBC (3.8-10.6) k/uL RBC (4.30-5.90) m/uL Hgb (13.0-17.5) gm/dL Hct (39.0-53.0) % MCV (80.0-100.0) fL MCHC (31.0-37.0) g/dL RDW (11.5-15.5) % ABG pH 7.32 L (7.35-7.45) ABG pCO2 79 H* (35-45) mmHg ABG HCO3 41 H* (21-25) mmol/L ABG Total CO2 43 H (19-24) mmol/L ABG O2 Saturation 97.1 H (94-97) % ABG Hematocrit 27 L (34.0-46.0) % Hemoglobin 8.8 L (13.0-17.5) gm/dL Sodium 147 H (137-145) mmol/L Carbon Dioxide 41 H* (22-30) mmol/L BUN 65 H (9-20) mg/dL Creatinine 0.65 L (0.66-1.25) mg/dL Glucose 148 H (74-99) mg/dL POC Glucose (mg/dL) 167 H (70-110) mg/dL Total Protein 4.6 L (6.3-8.2) g/dL Albumin 2.4 L (3.5-5.0) g/dL Coronavirus (PCR) (Not Detectd) 04/23/22 04/23/22 Range/Units 09:48 11:35 WBC (3.8-10.6) k/uL RBC (4.30-5.90) m/uL Hgb (13.0-17.5) gm/dL Hct (39.0-53.0) % MCV (80.0-100.0) fL MCHC (31.0-37.0) g/dL RDW (11.5-15.5) % ABG pH (7.35-7.45) ABG pCO2 (35-45) mmHg ABG HCO3 (21-25) mmol/L ABG Total CO2 (19-24) mmol/L ABG O2 Saturation (94-97) % ABG Hematocrit (34.0-46.0) % Hemoglobin (13.0-17.5) gm/dL Sodium (137-145) mmol/L Carbon Dioxide (22-30) mmol/L BUN (9-20) mg/dL Creatinine (0.66-1.25) mg/dL Glucose (74-99) mg/dL POC Glucose (mg/dL) 161 H (70-110) mg/dL Total Protein (6.3-8.2) g/dL Albumin (3.5-5.0) g/dL Coronavirus (PCR) Detected A (Not Detectd) Assessment and Plan Assessment: Impression: Acute on chronic hypoxic and hypercapnic respiratory failure intubated on 03/31, tracheostomy and PEG tube placement on 04/06, failure to wean from mechanical ventilation. Bilateral pneumonia secondary to Serratia marcescens and Haemophilus influenza, on cefepime, COVID-19 infection confirmed on 04/10 and positive on 04/13, likely contracted from his who was also positive. Acute exacerbation of COPD History of squamous cell lung cancer diagnosed on 01/01/2022. Given systemic c hemotherapy. Previous history of respiratory failure requiring intubation and mechanical ventilation tracheostomy and PEG tube placement, this was over 4 years ago. Generalized anxiety disorder. Severe COPD, FEV1 less than 35%. Degenerative joint disease Acute kidney injury Electrolytes imbalance with hyperkalemia and hyperchloremia as well as hypernatremia, improving. Bilateral cortical parietal ischemic changes, possible ischemic stroke. Status post tracheostomy tube change on 04/23/22. Recommendation: Today the patient had a tracheostomy tube change and bronchoscopy Will likely give the patient another trial of weaning with pressure support and CPAP later this afternoon. He had to be sedated for the procedures above. Continue ventilatory support, no major change in the vent settings today.. Continue enteral feeding/nutritional support Continue bronchodilators Discontinue antibiotics, patient had at least 3 weeks of IV antibiotics. Continue Seroquel. Continue eliquis for anticoagulation Continue Solu-Medrol. Continue GI and DVT prophylaxis Taper and discontinue clevidipine may use hydralazine instead. Lal trials of weaning if possible, multiple attempts as noted earlier have keshav led , patient did not tolerate pressure support of 14 and CPAP for a long period of time Continue diuretics. Patient has third spacing. Change IV fluid to D5W to correct his hypernatremia Updated family on his condition yesterday, and we'll likely updated the mother again. Today Prognosis remains extremely poor and guarded Remains full code as per family's wishes Discussed with social media coordinator possible placement. Critical care time is over 30 minutes, not including the time spent on procedures. Time with Patient: Greater than 30
[2022-04-23] MEDS: DEXTROSE 5% IN WATER 1,000 ML IV SCH (12:34)
--- NOTE | 2022-04-23 13:07 | PCN ---
PROCEDURE NOTE PROCEDURE PERFORMED: Bronchoscopy and assisting in tracheostomy change. PREOPERATIVE DIAGNOSIS: Tracheostomy cuff leak and loss of volume on mechanical ventilation. POSTOPERATIVE DIAGNOSIS: Tracheostomy cuff leak and loss of volume on mechanical ventilation. ANESTHESIA USED: The patient received 10 mg of Nimbex, Dilaudid 1 mg IV push, and Ativan 1 mg IV push. DESCRIPTION OF PROCEDURE: The patient was placed in a supine position, and after adequate sedation, patient was already on mechanical ventilation via tracheostomy, I was able to intubate the patient with a size 8.0 endotracheal tube with direct visualization of the vocal cords using a GlideScope. The endotracheal tube was inserted and placed next to the previous tracheostomy, and the cuff was inflated. The patient was being Ambu bagged, and the tracheostomy with a leaking cuff was removed. Then, Dr. Lu, who performed the initial tracheostomy, was able to place another size 7 Bivona tracheostomy to replace the previous tracheostomy tube. I was able to visualize the placement through the endotracheal tube. Then after adequate placement of the tracheostomy, we removed the endotracheal tube and looked into adequate placement of the tracheostomy itself. I used the bronchoscope, inserted through the new tracheostomy and I was able to visualize the distal end of the tracheostomy 2 cm above the artemio. The cuff on the tracheostomy was inflated, and the patient was reconnected back to mechanical ventilation, and the patient was maintaining adequate volumes and there was no cuff leak. The procedure was well tolerated, no immediate complications. MMODL / IJN: [id number] /
--- NOTE | 2022-04-23 17:34 | OP ---
OPERATIVE REPORT PROCEDURE PERFORMED: Intubation with a size 8.0 endotracheal tube. PREOPERATIVE DIAGNOSIS: Leaking cuff of tracheostomy, requiring change. POSTOPERATIVE DIAGNOSIS: Leaking cuff of tracheostomy, requiring change. ANESTHESIA USED: The patient did receive 1 mg of Ativan, 1 mg of Dilaudid, and 10 mg of Nimbex. DESCRIPTION OF PROCEDURE: The patient was already intubated and mechanically ventilated via tracheostomy. I was able to depress the tongue and directly visualize the vocal cords with a GlideScope. Then, a size 8.0 endotracheal tube was inserted with direct visualization of the vocal cords. As the vocal cords were entered, the cuff on the endotracheal tube was inflated in the trachea, and I verified the placement of the endotracheal tube with bronchoscope. Procedure was well tolerated, we were able to change the tracheostomy uneventfully, and the endotracheal tube was removed after placement of a new tracheostomy tube. MMODL / IJN: [id number] /
[2022-04-23 18:00] LABS: Glucose,Whole Blood 174 mg/dL (70-110)
[2022-04-23] MEDS: cloNIDine 0.2 MG/24HR PATCH TRANSDERM SCH (20:33)
[2022-04-23] MEDS: ATORVASTATIN 10 MG TAB PO SCH (20:43)
[2022-04-23] MEDS: LATANOPROST 0.005% OPHTH DROPS 2.5 ML BTL BOTH EYES SCH ×2 (20:43)
[2022-04-24 00:12] LABS: Glucose,Whole Blood 227 mg/dL (70-110)
[2022-04-24] MEDS: ALBUTEROL HFA INHALER INHALATION SCH ×7 (00:19→23:49)
[2022-04-24] MEDS: INSULIN ASPART (NovoLOG) 100 UNIT/ML VIAL SQ SCH ×8 (00:48→17:34)
[2022-04-24] MEDS: methylPREDNISolone SOD SUCCI 125 MG/2 ML VIAL IV SCH ×4 (00:50→17:35)
[2022-04-24] MEDS: DEXTROSE 5% IN WATER 1,000 ML IV SCH ×2 (01:30→14:51)
[2022-04-24] MEDS: HYDROmorphone 1 MG/ML 1 ML SYRINGE IVP PRN ×3 (02:34→08:29)
[2022-04-24] MEDS: hydrALAZINE HCL 20 MG/ML 1 ML VIAL IVP PRN ×2 (02:41→08:01)
[2022-04-24] MEDS: LORazepam 1 MG/0.5 ML VIAL IV PRN ×2 (03:26→08:29)
[2022-04-24 04:36] LABS: Anisocytosis Moderate; HCT 32.2 % (39.0-53.0); HGB 9.5 gm/dL (13.0-17.5); Hypochromasia Marked; MCH 30.2 pg (25.0-35.0); MCHC 29.7 g/dL (31.0-37.0); MCV 101.7 fL (80.0-100.0); Macrocytosis Marked; Mean Platelet Volume 9.3; Platelet Count 305 k/uL (150-450); RBC 3.17 m/uL (4.30-5.90); RDW 20.8 % (11.5-15.5); WBC 32.4 k/uL (3.8-10.6)
[2022-04-24 04:50] LABS: ALT 49 U/L (4-49); AST 44 U/L (17-59); African American GFR (CKD) >90 (>60 ml/min/1.73 sqM); Albumin 2.4 g/dL (3.5-5.0); Alkaline Phosphatase 103 U/L (38-126); Anion Gap 3 mmol/L; Blood Urea Nitrogen 65 mg/dL (9-20); Calcium 8.8 mg/dL (8.4-10.2); Carbon Dioxide 38 mmol/L (22-30); Chloride 102 mmol/L (98-107); Glucose 217 mg/dL (74-99); Non-African American GFR(CKD) >90 (>60 ml/min/1.73 sqM); Sodium 143 mmol/L (137-145); Total Bilirubin 0.3 mg/dL (0.2-1.3); Total Protein 4.7 g/dL (6.3-8.2)
[2022-04-24 04:56] LABS: Potassium 4.6 mmol/L (3.5-5.1)
[2022-04-24 05:28] LABS: ABG Base Excess 14.1 mmol/L; ABG Hematocrit 30 % (34.0-46.0); ABG Oxygen Saturation 92.8 % (94-97); ABG PH 7.35 (7.35-7.45); ABG PO2 65 mmHg (83-108); ABG TCO2 42 mmol/L (19-24); Allen Test Performed? Yes
[2022-04-24 05:30] LABS: ABG HCO3 40 mmol/L (21-25); ABG PCO2 72 mmHg (35-45)
[2022-04-24 06:14] LABS: Glucose,Whole Blood 226 mg/dL (70-110)
[2022-04-24] MEDS: INSULIN DETEMIR (LEVEMIR) 100 UNIT/ML SYR SQ SCH (06:48)
[2022-04-24] MEDS: CLEVIDIPINE BUTYRATE 25 MG in EMPTY BAG 1 BAG IV SCH (07:09)
--- NOTE | 2022-04-24 07:13 | XR ---
EXAMINATION TYPE: XR chest 1V portable DATE OF EXAM: 04/24/2022 5:55 AM COMPARISON: Chest radiograph from one day prior. TECHNIQUE: XR chest 1V portable Portable AP radiograph of the chest. CLINICAL INDICATION:Male, 71 years old with history of Trached on vent; FINDINGS: Lungs/Pleura: Bibasilar airspace opacities may be worse on the left. There is no evidence of pleural effusion, or pneumothorax. Pulmonary vascularity: Unremarkable. Heart/mediastinum: Cardiomediastinal silhouette is unremarkable. Musculoskeletal: No acute osseous pathology. Lines/Tubes: Tracheostomy cannula tip projecting over the trachea. IMPRESSION: 1. Tracheostomy cannula tip in appropriate position. 2. Bibasilar airspace opacities which may be mildly worse on the left compared to prior.
[2022-04-24] MEDS: SYMBICORT 160-4.5 MCG INHALER INHALATION SCH ×2 (07:39→19:43)
[2022-04-24] MEDS: APIXABAN 5 MG TAB PO SCH ×2 (08:01→21:41)
[2022-04-24] MEDS: GABAPENTIN 300 MG CAP PO SCH ×3 (08:01→21:43)
[2022-04-24] MEDS: amLODIPine 10 MG TAB PO SCH (08:01)
[2022-04-24] MEDS: CHLORHEXIDINE GLUCONATE 15 ML CUP MUCOUS MEM SCH ×2 (08:01→21:42)
[2022-04-24] MEDS: PANTOPRAZOLE 40 MG/10 ML VIAL IVP SCH (08:01)
[2022-04-24] MEDS: CHOLECALCIFEROL 25 MCG (1000 IU) TABLET PO SCH (08:01)
[2022-04-24] MEDS: QUEtiapine 100 MG TAB PO SCH ×2 (08:03→21:43)
[2022-04-24] MEDS: METOPROLOL TARTRATE 25 MG TAB PO SCH ×2 (09:38→21:42)
[2022-04-24 11:42] LABS: Glucose,Whole Blood 238 mg/dL (70-110)
--- NOTE | 2022-04-24 12:10 | P.PN ---
Subjective Progress Note Date: 04/24/22 Principal diagnosis: Acute on chronic hypoxic and hypercapnic respiratory failure secondary to COPD, bronchogenic carcinoma, and Serratia marcescens pneumonia This is a 71-year-old white male with chronic hypoxic and hypercapnic respiratory failure severe end-stage COPD, previous history of respiratory failure requiring intubation and mechanical ventilation history of non-small cell lung cancer diagnosed back in December of 2021. Patient presented to the hospital with 2 days history of increased shortness of breath, associated with cough, some wheezing, patient is normally maintained on oxygen and on prednisone as well as theophylline and many other bronchodilators. Has been very compliant with his medications. Admitted through the emergency room with acute on chronic hypoxic and hypercapnic respiratory failure patient was placed on relatively high FiO2 and BiPAP. Condition deteriorated and the patient went on to develop worsening hypercapnic respiratory failure requiring transfer to the ICU, intubation, mechanical ventilation, and I'm seeing him today on consultation. Patient is sedated, he is on propofol. His ventilator settings are assist control rate of 20, volume 450 FiO2 35% and PEEP of 5 ABG earlier on 70% showed a pO2 of 299 pCO2 of 62 pH of 7.32. Patient is on propofol at 50 mcg/kg/m, 0.9 normal saline at 1 25 mL per hour, norepinephrine at 0.4 mcg/kg/m. Patient did receive fluid boluses yesterday, today antibiotics were added and sputum cultu res are pending. Patient will be placed empirically on Zosyn. Chest x-ray showed evidence of mass in the left pulmonary hilar area which is basically his original bronchogenic carcinoma minimal infiltrate in the left lower lobe and there is hyperinflation as well as coarse interstitial densities in both lower lobes. Nasogastric tube was noted to be in the proper position endotracheal tube in the proper position. Family is at bedside, updated the family on his condition, and we will likely give the patient a trial of weaning however the patient is known to have significant history of anxiety and I will try to use Precedex, pressure support mode of mechanical ventilation with a pressure pereira pport of 12 and CPAP after taking the patient off propofol if possible. Reevaluated today 04/02/22, patient remains in the ICU, intubated and mechanically ventilated. He is on assist control rate of 20 to volume 450 FiO2 35% and PEEP of 5. ABG showed a pO2 of 101 pCO2 of 55 pH of 7.32. Patient is on propofol at 30 mcg/kg/m he is also on 0.9 normal saline at 1 25 mL per hour. He is not requiring any pressors, no inotropes are needed. And no diuretics are needed. Patient was given a trial of weaning again today and he did not do well. As soon as the propofol placed on hold, patient became extremely short of breath, tachypnea, tachycardic, and he was having even rough time on assist cont rol mode of mechanical ventilation. Hence did not even get a chance to place the patient on pressure support mode of mechanical ventilation. Hence placed back on assist control mode and discussed with the family the different options with the patient. He will likely require tracheostomy and PEG tube placement, unless the family decides on possible comfort care measures. In the meantime we will try to continue daily assessment for weaning, but I have a strong feeling that the patient will not wean easily and may require again tracheostomy and PEG tube placement. Family would like to discuss this among themselves, and they will let me know whether they are agreeable to proceed with comfort care measures down the line. Patient again has severe end-stage COPD and he has bronchogenic carcinoma. Reevaluated today on 04/03/22, patient remains in the ICU intubated and mechanically ventilated. He is now on assist control rate of 20 to volume 450 FiO2 35% and PEEP of 5. Peak airway pressure is 35. His ABG showed a pO2 of 106 pCO2 56 pH of 7.34. Patient remains on 35% FiO2. Patient is off norepinephrine he remains on normal saline at 50 mL an hour and on propofol at 50 mcg/kg/m. Patient is receiving vital Hp at 50 mL/h the goal is 50. On physical examination continues to have rhonchi and wheezes bilaterally chest x- rays showing slight improvement in his bilateral infiltrates. Left hilar mass remains the same. Hence I have no plans to wean the patient today, and the family has made a decision that the patient does not wean in the next few days, they would like him to proceed with tracheostomy and PEG tube placement and eventual placement. We will decide this early next week in the meantime patient is not related to believe that extubated. CBC is relatively unremarkable WBC 7.3 hemoglobin is 8.8, basic metabolic profile is relatively normal, BUN is 67 creatinine is 1.36 hence we will increase his IV fluid to 75 mL Reevaluated today on 04/04/22, patient remains in the ICU, intubated and mechanically ventilated. Not much of a exchange mechanic the last 24 hours, patient remains on assist control rate of 20 to volume 450 FiO2 35% and PEEP of 5. ABG showed a pO2 of 69 pCO2 of 67 pH of 7.29. Hence we'll increase his rate to 24. Patient remains on propofol at 50 mcg/kg/m, IV fluid 0.9 normal saline at 75 mL per hour. He is receiving vital HP at 50 mL per hour/cor. His sputum is coming back positive for Serratia and Haemophilus influenza both are covered with Zosyn. Patient has been on Zosyn all along. Patient is sedated however I will try to awaken the patient today, and assess mental status. On physical examination he continues to have tightness and wheezing and I don't believe the patient is ready to have any weaning trials again. Today I even discussed the situation all over with the family about possible tracheostomy PEG tube placement PICC line placement and eventual placement and a ventilator facility. I also discussed the option of comfort care measures. Family seems to be inclined to proceed with tracheostomy and PEG tube placement as well as PICC line placement and eventual transfer to a ventilator facility/selective care specialty. Prognosis is obviously very poor, and the family is very well aware that the patient has poor prognosis with severe end-stage COPD and bronchogenic carcinoma. WBC count is 8.8 hemoglobin is 9.7, basic metabolic profile is normal BUN is 60 creatinine 0.68. For some reason a CT angio the chest was ordered yesterday, no evidence of pulmonary embolism clinically I never thought that the patient had pulmonary embolism and the clinical presentation is not a presentation of pulmonary embolism. 04/19/2022, the patient intermittently follows commands and his condition is essentially same as yesterday without any major changes. At times, he follows simple commands such as raising his eyebrows or wiggling his toes. He is only receiving Ativan. No others IV sedation for now. He is also on 100 mg of Seroquel twice a day. He remains on a mechanical ventilator on a pressure control at the rate of 18 with a pressure control of 20 FiO2 of 40% with a PEEP of 5. Rest or secretions are still active and the patient is being suctioned adequately. He is on IV cefepime as the patient was Serratia marcescens in his sputum. Chest x-ray from today is essentially the same. Tracheostomy tube is in a good location. The patient remains hemodynamically stable. Patient is bronchodilators and patient remains on steroids. He is on IV Solu Medrol 60 mg every 6 hours. Blood gases from today shows a pH of 7.42 with a pCO2 of 69 and pO2 of 62. He was having significant amount of third spacing and edema. He was given a dose of Lasix yesterday with adequate diuresis. His net fluid balance is -1.4 L since yesterday. He continues to receive enteral feeding and the patient is currently on Nepro at the rate of 27 mL an hour. His cardiac rhythm remains sinus. He remains on anticoagulation with Eliquis. The main issue for now this is generalized debility and advanced lung disease. His mentation is also poor and the patient is extremely weak which obviously is affecting his further weaning process. Meanwhile, the patient's chest x-ray from today is essentially clear and tracheostomy tube is in a good location. On and off, the patient developed some leak around the tracheostomy tube requiring more air in the balloon. Labs from today shows a sodium level of 143, potassium level is at 3.9, serum bicarbonate of 42 with a in a 59 and creatinine 0.6. The white cell count is at 19.7 with a hemoglobin of 10.1. Reevaluated today on 04/20/22, patient remains in ICU, presently on pressure control mode of mechanical ventilation with pressure control of 20 inspiratory time of 0.9 rate of 18 FiO2 100% and I cut it down to 80% PEEP of 5 and I increased it to 10. ABG today showed a pO2 of 50 pCO2 75 pH of 7.37. Patient remains on cefepime for his Serratia pneumonia. Remains on eliquis, he is also on Nepro enteral feeding at 27 mL/h, patient is on clevidipine and on IV fluid at 0.9 KVO. WBC count is 26.4 hemoglobin is 10.1 basic metabolic profile is basically normal. BUN is 62 creatinine 0.74, liver enzymes are relatively normal. Patient is not requiring any propofol at present, he is however on Seroquel. Last night his FiO2 had to be increased. And today I had to increase his PEEP, cut down his FiO2 back to 80%, no plans to initiate any weaning trials whatsoever today, patient is not a candidate for any weaning at this point. As a matter of fact his prognosis is getting worse on a daily basis. No family members available at bedside. Chest x-ray is basically not showing much of a change in his infiltrates, continues to have significant airspace disease mostly in the left lower lobe Reevaluated today on 04/21/22, patient remains in the ICU, remains intubated and mechanically ventilated, he is on pressure control mode of mechanical ventilation, blood pressure control of 20 inspiratory time of 0.9, FiO2 60% PEEP of 10 rate of 18. ABG showed a pO2 of 72 pCO2 65 pH of 7.44. Remains on enteral feeding/Nepro remains on cefepime is also on Solu-Medrol 60 mg IV push every 6 hours Cleviprex at 10 mg/h and he is on eliquis. Not much of a change overnight, chest x-ray today showed slight worsening of the pneumonia in the left lower lobe. Patient is arousable, however he seems to be quite restless and agitated with the tracheostomy, he follows simple instructions like squeezing hands and wiggling toes. Seems to be appropriate and that as he seems to be quite agitated. WBC count is elevated at 24.6 hemoglobin is 9.2, basic metabolic profile is relatively unremarkable except for bicarb of 41 pH Reevaluated today on 04/22/22, patient remains intubated mechanically ventilated he is on pressure control of 20 inspiratory time of 0.9 rate of 18 FiO2 50% PEEP down to 5 ABG showed a pO2 of 105 pCO2 65 pH 7.42 hence his PEEP was cut down to 5 and FiO2 the same. Today I'm getting give the patient a trial of pressure support of 14 and CPAP of 5. Will continue the same mode as long as tolerated possibly today. Patient had at least 3 attempts of trial to wean on 04/20, 04/21 and today, doubt the patient will tolerate weaning but we will continue to try anyway. Again I'm trying to pressure support of 14 and pressure support of 14 and CPAP 5. Chest x-ray continues to show extensive disease/disease in the lower lobe especially in the left lower lobe. Hence the patient remains on antibiotics. Continues to have leukocytosis with WBC of 23.8 hemoglobin is 8.8 basic metabolic profile is normal bicarb is 39 BUN is 77 creatinine 0.43. Patient remains on enteral feeding, using Nepro at 27 mL per hour. Remains on GI and DVT prophylaxis. Reevaluated today on 04/23/22, patient remains in the ICU, intubated and mechanically ventilated. He is on assist control of 20, volume 500 FiO2 50% PEEP of 5, ABG showed a pO2 of 91 pCO2 79 pH of 7.32, however the patient had issues with the tracheostomy and cuff leak overnight. Today we went ahead and changed his tracheostomy and place a new one, and so far seems to be working well. Hopefully later today the patient could be given another trial of weaning with pressure support and CPAP, he failed multiple previous attempts with pressure support and CPAP. But we will continue trying every day. In the meantime I will try to discontinue his Cleviprex and start the patient on hydralazine he is also on amlodipine as well as clonidine, blood pressure seems to be better controlled nonetheless is still requiring Cleviprex drip today at 12 mg per hour. Patient is not requiring any pressors. He is requiring Ativan intermittently. And he is also on Nepro enteral feeding. Today no major change was made in the ventilator settings except he was placed on the percent at the time when we bronchoscope the patient and changed his tracheostomy tube today. Labs today showed WBC count 25.3 hemoglobin is 9.3 sodium is 147 potassium 4.0 chloride 104 BUN 65 creatinine 0.65. Hence I will change his main IV fluid to D5 for 5 or D5W. To help lower down his sodium. May even consider free water f lushes. Repeat PCR for COVID-19 was positive again today. Patient remains on updrafts, he is also on Lipitor, eliquis 5 mg twice a day, hydralazine was added today. Patient is on Dilaudid, he is also on gabapentin, remains on Seroquel at 100 mg by mouth twice a day and Requip. Remains on methylprednisolone 60 every 6, he is off antibiotics. Reevaluated today on 04/24/22, patient remains in the ICU, intubated mechanically ventilated. Patient has been experiencing intermittent episodes of agitation, intermittently desaturating up and down, and his ABG is morning was marginal at best. ABG showed a pO2 of 65 pCO2 72 pH of 7.35, but since the ABG was done, his ventilator settings were adjusted since he was desaturating, and he is now on rate of 22, tidal volume 500, FiO2 was increased from 60% to 70%, and PEEP is now 10 instead of 5. Patient remains on Cleviprex at 4 mg/h, he is receiving Nepro at 27 mL per hour D5W at 75 mL per hour. Patient is intermittently on Ativan and Dilaudid, today he is not even anywhere Beer weaning and I would not even attempt to wean the patient. Explained to the family at bedside about his condition, and stressed to them that the patient is not doing well, and he will not to do well considering his overall clinical picture. Family still insisting on full measures and not willing to consider comfort care measures at this point. Chest x-ray basically showing no change. Continues to have bilateral patchy airspace disease in left lower lobe and right lower lobe. And left hilar mass is noted previous sputum cultures were positive for Serratia marcescens and for Haemophilus influenza. Considering the patient is having leukocytosis again with WBC count of 32.4 hemoglobin is 9.5, I will likely restart the patient on antibiotics in the form of Zosyn Objective - Vital Signs Vital signs: Vital Signs Temp 97.5 F L 04/24/22 08:00 Pulse 74 04/24/22 11:00 Resp 24 04/24/22 11:00 BP 105/54 04/24/22 11:00 Pulse Ox 94 L 04/24/22 11:00 FiO2 70 04/24/22 11:32 Intake & Output 04/23/22 04/24/22 04/24/22 18:59 06:59 18:59 Intake Total 989.0 1513.000 591.967 Output Total 1100 870 285 Balance -111.0 643.000 306.967 Weight 83.8 kg 83.8 kg Intake: IV 93 961 390 Dextrose 5% in Water 1, 825 375 000 ml @ 75 mls/hr IV . [id number] [facility] Rx#:[id number] Sodium Chloride 0.9% 60 100 pressure bag 33 36 15 Intake, IV Titration 509.0 138.000 36.967 Amount Clevidipine Butyrate 25 59.0 63.000 36.967 mg In Empty Bag 1 bag @ 1 MG/HR 2 mls/hr IV .Q24H [facility] Rx#:[id number] Dextrose 5% in Water 1, 450 75 000 ml @ 75 mls/hr IV . [id number] [facility] Rx#:[id number] Tube Feeding 297 324 135 Other 90 90 30 Output: Urine 1100 870 285 Other: Voiding Method Indwelling Catheter Indwelling Catheter Indwelling Catheter ABP, PAP, CO, CI - Last Documented Arterial Blood Pressure 88/41 - Exam GENERAL: Reveals a 71-year-old white male on mechanical ventilation, intermittently noted to be agitated. HEENT: PERRLA, EOMI, anicteric, no neck masses, no JVD, tracheostomy was noted to have significant cuff leak, and this was changed today. CARDIOVASCULAR: Distant S1 and S2 no S3 gallop. No murmur. PULMONARY: Symmetrical chest expansion, crackles persist bilaterally. ABDOMEN: Soft nontender no megaly no rebound no guarding, positive bowel sounds. MUSCULOSKELETAL: No deformities and no limitation in range of motion EXTREMITIES: Mild clubbing, 2+ bipedal edema and edema noted in upper extremities bilaterally., no cyanosis NEUROLOGICAL: Arousable, follows simple instructions, but seems to be agitated as soon as he is arousable. SKIN: No rashes. Psychiatric:Unable to fully assess, seems to comprehend simple instructions - Labs CBC & Chem 7: 04/24/22 04:25 04/24/22 04:25 Labs: Abnormal Lab Results - Last 24 Hours (Table) 04/23/22 04/24/22 04/24/22 Range/Units 17:58 00:11 04:25 WBC 32.4 H (3.8-10.6) k/uL RBC 3.17 L (4.30-5.90) m/uL Hgb 9.5 L (13.0-17.5) gm/dL Hct 32.2 L (39.0-53.0) % MCV 101.7 H (80.0-100.0) fL MCHC 29.7 L (31.0-37.0) g/dL RDW 20.8 H (11.5-15.5) % Macrocytosis Marked A ABG pCO2 (35-45) mmHg ABG pO2 (83-108) mmHg ABG HCO3 (21-25) mmol/L ABG Total CO2 (19-24) mmol/L ABG O2 Saturation (94-97) % ABG Hematocrit (34.0-46.0) % Hemoglobin (13.0-17.5) gm/dL Carbon Dioxide (22-30) mmol/L BUN (9-20) mg/dL Creatinine (0.66-1.25) mg/dL Glucose (74-99) mg/dL POC Glucose (mg/dL) 174 H 227 H (70-110) mg/dL Total Protein (6.3-8.2) g/dL Albumin (3.5-5.0) g/dL 04/24/22 04/24/22 04/24/22 Range/Units 04:25 05:20 06:12 WBC (3.8-10.6) k/uL RBC (4.30-5.90) m/uL Hgb (13.0-17.5) gm/dL Hct (39.0-53.0) % MCV (80.0-100.0) fL MCHC (31.0-37.0) g/dL RDW (11.5-15.5) % Macrocytosis ABG pCO2 72 H* (35-45) mmHg ABG pO2 65 L (83-108) mmHg ABG HCO3 40 H* (21-25) mmol/L ABG Total CO2 42 H (19-24) mmol/L ABG O2 Saturation 92.8 L (94-97) % ABG Hematocrit 30 L (34.0-46.0) % Hemoglobin 9.8 L (13.0-17.5) gm/dL Carbon Dioxide 38 H (22-30) mmol/L BUN 65 H (9-20) mg/dL Creatinine 0.26 L (0.66-1.25) mg/dL Glucose 217 H (74-99) mg/dL POC Glucose (mg/dL) 226 H (70-110) mg/dL Total Protein 4.7 L (6.3-8.2) g/dL Albumin 2.4 L (3.5-5.0) g/dL 04/24/22 Range/Units 11:31 WBC (3.8-10.6) k/uL RBC (4.30-5.90) m/uL Hgb (13.0-17.5) gm/dL Hct (39.0-53.0) % MCV (80.0-100.0) fL MCHC (31.0-37.0) g/dL RDW (11.5-15.5) % Macrocytosis ABG pCO2 (35-45) mmHg ABG pO2 (83-108) mmHg ABG HCO3 (21-25) mmol/L ABG Total CO2 (19-24) mmol/L ABG O2 Saturation (94-97) % ABG Hematocrit (34.0-46.0) % Hemoglobin (13.0-17.5) gm/dL Carbon Dioxide (22-30) mmol/L BUN (9-20) mg/dL Creatinine (0.66-1.25) mg/dL Glucose (74-99) mg/dL POC Glucose (mg/dL) 238 H (70-110) mg/dL Total Protein (6.3-8.2) g/dL Albumin (3.5-5.0) g/dL Assessment and Plan Assessment: Impression: Acute on chronic hypoxic and hypercapnic respiratory failure intubated on 03/31, tracheostomy and PEG tube placement on 04/06, failure to wean from mechanical ventilation. Bilateral pneumonia secondary to Serratia marcescens and Haemophilus influenza, on cefepime, COVID-19 infection confirmed on 04/10 and positive on 04/13, likely contracted from his who was also positive. Acute exacerbation of COPD History of squamous cell lung cancer diagnosed on 01/01/2022. Given systemic chemotherapy. Previous history of respiratory failure requiring intubation and mechanical ventilation tracheostomy and PEG tube placement, this was over 4 years ago. Generalized anxiety disorder. Severe COPD, FEV1 less than 35%. Degenerative joint disease Acute kidney injury Electrolytes imbalance with hyperkalemia and hyperchloremia as well as hypernatremia, improving. Bilateral cortical parietal ischemic changes, possible ischemic stroke. Status post tracheostomy tube change on 04/23/22. Recommendation: Continue ventilatory support, some changes were made on the ventilator today including increasing his FiO2, increasing PEEP, and increasing flow rate. Continue enteral feeding/nutritional support Continue bronchodilators Restart antibiotics/Zosyn, chest x-ray is not showing much improvement and the patient is now having leukocytosis the MUGA scan is over 32,000. Continue Seroquel. Continue eliquis for anticoagulation Continue Solu-Medrol. Continue GI and DVT prophylaxis Multiple attempts of weaning have failed, today the patient is not ready for any weaning Continue diuretics. Patient has third spacing. Change IV fluid to D5W to correct his hypernatremia, his sodium is improved today sodium is 143 today Family was updated on his condition and made aware that he has extremely poor prognosis, unlikely to pull through this Prognosis remains extremely poor and guarded Remains full code as per family's wishes Critical care time is over 30 minutes Time with Patient: Greater than 30
[2022-04-24] MEDS: PIPERACILLIN-TAZOBACTAM 3.375 GM in SODIUM CHLORIDE 0.9% 100 ML IVPB SCH (15:30)
[2022-04-24 17:29] LABS: Glucose,Whole Blood 198 mg/dL (70-110)
[2022-04-24] MEDS: ATORVASTATIN 10 MG TAB PO SCH (21:42)
[2022-04-24] MEDS: LATANOPROST 0.005% OPHTH DROPS 2.5 ML BTL BOTH EYES SCH (21:42)
[2022-04-24] MEDS ORDERED: SODIUM CHLORIDE 0.9% 1,000 ML IV ONE (22:35)
[2022-04-25 00:16] LABS: Glucose,Whole Blood 201 mg/dL (70-110)
[2022-04-25] MEDS: PIPERACILLIN-TAZOBACTAM 3.375 GM in SODIUM CHLORIDE 0.9% 100 ML IVPB SCH ×4 (00:18→23:12)
[2022-04-25] MEDS: INSULIN ASPART (NovoLOG) 100 UNIT/ML VIAL SQ SCH ×10 (00:18→23:08)
[2022-04-25] MEDS: methylPREDNISolone SOD SUCCI 125 MG/2 ML VIAL IV SCH ×5 (00:18→23:13)
[2022-04-25] MEDS: ALBUTEROL HFA INHALER INHALATION SCH ×6 (03:22→23:04)
[2022-04-25] MEDS: DEXTROSE 5% IN WATER 1,000 ML IV SCH (04:10)
[2022-04-25 05:09] LABS: Anisocytosis Moderate; HCT 29.9 % (39.0-53.0); HGB 8.7 gm/dL (13.0-17.5); Hypochromasia Marked; MCH 30.4 pg (25.0-35.0); MCHC 29.1 g/dL (31.0-37.0); MCV 104.6 fL (80.0-100.0); Macrocytosis Marked; Mean Platelet Volume 9.7; Platelet Count 241 k/uL (150-450); RBC 2.86 m/uL (4.30-5.90); RDW 20.8 % (11.5-15.5); WBC 23.4 k/uL (3.8-10.6)
[2022-04-25 05:23] LABS: African American GFR (CKD) >90 (>60 ml/min/1.73 sqM); Anion Gap 2 mmol/L; Blood Urea Nitrogen 76 mg/dL (9-20); Calcium 8.6 mg/dL (8.4-10.2); Carbon Dioxide 37 mmol/L (22-30); Chloride 100 mmol/L (98-107); Glucose 180 mg/dL (74-99); Non-African American GFR(CKD) >90 (>60 ml/min/1.73 sqM); Sodium 139 mmol/L (137-145)
[2022-04-25 05:28] LABS: Potassium 4.4 mmol/L (3.5-5.1)
[2022-04-25 06:02] LABS: ABG Base Excess 8.7 mmol/L; ABG HCO3 36 mmol/L (21-25); ABG Hematocrit 28 % (34.0-46.0); ABG Oxygen Saturation 96.7 % (94-97); ABG PH 7.23 (7.35-7.45); ABG PO2 88 mmHg (83-108); ABG TCO2 39 mmol/L (19-24); Allen Test Performed? Yes
[2022-04-25 06:06] LABS: ABG PCO2 86 mmHg (35-45)
[2022-04-25 06:34] LABS: Glucose,Whole Blood 184 mg/dL (70-110)
[2022-04-25] MEDS: INSULIN DETEMIR (LEVEMIR) 100 UNIT/ML SYR SQ SCH (06:41)
--- NOTE | 2022-04-25 06:51 | XR ---
EXAMINATION TYPE: XR chest 1V portable DATE OF EXAM: 04/25/2022 CLINICAL HISTORY: Difficulty breathing progress study. TECHNIQUE: 2 AP portable frontal upright views of the chest are obtained. COMPARISON: Chest x-ray from one day earlier and older studies. FINDINGS: Stable left-sided PICC line and tracheostomy tube. Background chronic parenchymal changes with increased opacities left mid lung and bilateral lower eugenia gs redemonstrated. Cardiac flow size stable and within normal limits. Osseous structures are intact. IMPRESSION: Chronic parenchymal changes with bibasilar and left midlung acute infiltrates and/or atel ectasis redemonstrated. No significant change from one day earlier.
[2022-04-25] MEDS: SYMBICORT 160-4.5 MCG INHALER INHALATION SCH ×2 (07:52→18:54)
[2022-04-25] MEDS: amLODIPine 10 MG TAB PO SCH (08:56)
[2022-04-25] MEDS: CHOLECALCIFEROL 25 MCG (1000 IU) TABLET PO SCH (08:56)
[2022-04-25] MEDS: CHLORHEXIDINE GLUCONATE 15 ML CUP MUCOUS MEM SCH ×2 (08:56→21:18)
[2022-04-25] MEDS: APIXABAN 5 MG TAB PO SCH ×2 (08:56→21:18)
[2022-04-25] MEDS: GABAPENTIN 300 MG CAP PO SCH ×3 (08:56→21:18)
[2022-04-25] MEDS: QUEtiapine 100 MG TAB PO SCH ×3 (08:57→22:34)
[2022-04-25] MEDS: PANTOPRAZOLE 40 MG/10 ML VIAL IVP SCH (09:02)
[2022-04-25] MEDS: METOPROLOL TARTRATE 25 MG TAB PO SCH (09:02)
[2022-04-25] MEDS: NOREPINEPHRINE 4 MG in SODIUM CHLORIDE 0.9% 250 ML IV SCH ×3 (09:50→23:13)
--- NOTE | 2022-04-25 11:16 | P.PN ---
Subjective Progress Note Date: 04/25/22 Principal diagnosis: Acute on chronic hypoxic and hypercapnic respiratory failure secondary to COPD, bronchogenic carcinoma, and Serratia marcescens pneumonia This is a 71-year-old white male with chronic hypoxic and hypercapnic respiratory failure severe end-stage COPD, previous history of respiratory failure requiring intubation and mechanical ventilation history of non-small cell lung cancer diagnosed back in December of 2021. Patient presented to the hospital with 2 days history of increased shortness of breath, associated with cough, some wheezing, patient is normally maintained on oxygen and on prednisone as well as theophylline and many other bronchodilators. Has been very compliant with his medications. Admitted through the emergency room with acute on chronic hypoxic and hypercapnic respiratory failure patient was placed on relatively high FiO2 and BiPAP. Condition deteriorated and the patient went on to develop worsening hypercapnic respiratory failure requiring transfer to the ICU, intubation, mechanical ventilation, and I'm seeing him today on consultation. Patient is sedated, he is on propofol. His ventilator settings are assist control rate of 20, volume 450 FiO2 35% and PEEP of 5 ABG earlier on 70% showed a pO2 of 299 pCO2 of 62 pH of 7.32. Patient is on propofol at 50 mcg/kg/m, 0.9 normal saline at 1 25 mL per hour, norepinephrine at 0.4 mcg/kg/m. Patient did receive fluid boluses yesterday, today antibiotics were added and sputum cultu res are pending. Patient will be placed empirically on Zosyn. Chest x-ray showed evidence of mass in the left pulmonary hilar area which is basically his original bronchogenic carcinoma minimal infiltrate in the left lower lobe and there is hyperinflation as well as coarse interstitial densities in both lower lobes. Nasogastric tube was noted to be in the proper position endotracheal tube in the proper position. Family is at bedside, updated the family on his condition, and we will likely give the patient a trial of weaning however the patient is known to have significant history of anxiety and I will try to use Precedex, pressure support mode of mechanical ventilation with a pressure pereira pport of 12 and CPAP after taking the patient off propofol if possible. Reevaluated today 04/02/22, patient remains in the ICU, intubated and mechanically ventilated. He is on assist control rate of 20 to volume 450 FiO2 35% and PEEP of 5. ABG showed a pO2 of 101 pCO2 of 55 pH of 7.32. Patient is on propofol at 30 mcg/kg/m he is also on 0.9 normal saline at 1 25 mL per hour. He is not requiring any pressors, no inotropes are needed. And no diuretics are needed. Patient was given a trial of weaning again today and he did not do well. As soon as the propofol placed on hold, patient became extremely short of breath, tachypnea, tachycardic, and he was having even rough time on assist cont rol mode of mechanical ventilation. Hence did not even get a chance to place the patient on pressure support mode of mechanical ventilation. Hence placed back on assist control mode and discussed with the family the different options with the patient. He will likely require tracheostomy and PEG tube placement, unless the family decides on possible comfort care measures. In the meantime we will try to continue daily assessment for weaning, but I have a strong feeling that the patient will not wean easily and may require again tracheostomy and PEG tube placement. Family would like to discuss this among themselves, and they will let me know whether they are agreeable to proceed with comfort care measures down the line. Patient again has severe end-stage COPD and he has bronchogenic carcinoma. Reevaluated today on 04/03/22, patient remains in the ICU intubated and mechanically ventilated. He is now on assist control rate of 20 to volume 450 FiO2 35% and PEEP of 5. Peak airway pressure is 35. His ABG showed a pO2 of 106 pCO2 56 pH of 7.34. Patient remains on 35% FiO2. Patient is off norepinephrine he remains on normal saline at 50 mL an hour and on propofol at 50 mcg/kg/m. Patient is receiving vital Hp at 50 mL/h the goal is 50. On physical examination continues to have rhonchi and wheezes bilaterally chest x- rays showing slight improvement in his bilateral infiltrates. Left hilar mass remains the same. Hence I have no plans to wean the patient today, and the family has made a decision that the patient does not wean in the next few days, they would like him to proceed with tracheostomy and PEG tube placement and eventual placement. We will decide this early next week in the meantime patient is not related to believe that extubated. CBC is relatively unremarkable WBC 7.3 hemoglobin is 8.8, basic metabolic profile is relatively normal, BUN is 67 creatinine is 1.36 hence we will increase his IV fluid to 75 mL Reevaluated today on 04/04/22, patient remains in the ICU, intubated and mechanically ventilated. Not much of a globe changer the last 24 hours, patient remains on assist control rate of 20 to volume 450 FiO2 35% and PEEP of 5. ABG showed a pO2 of 69 pCO2 of 67 pH of 7.29. Hence we'll increase his rate to 24. Patient remains on propofol at 50 mcg/kg/m, IV fluid 0.9 normal saline at 75 mL per hour. He is receiving vital HP at 50 mL per hour/cor. His sputum is coming back positive for Serratia and Haemophilus influenza both are covered with Zosyn. Patient has been on Zosyn all along. Patient is sedated however I will try to awaken the patient today, and assess mental status. On physical examination he continues to have tightness and wheezing and I don't believe the patient is ready to have any weaning trials again. Today I even discussed the situation all over with the family about possible tracheostomy PEG tube placement PICC line placement and eventual placement and a ventilator facility. I also discussed the option of comfort care measures. Family seems to be inclined to proceed with tracheostomy and PEG tube placement as well as PICC line placement and eventual transfer to a ventilator facility/selective care specialty. Prognosis is obviously very poor, and the family is very well aware that the patient has poor prognosis with severe end-stage COPD and bronchogenic carcinoma. WBC count is 8.8 hemoglobin is 9.7, basic metabolic profile is normal BUN is 60 creatinine 0.68. For some reason a CT angio the chest was ordered yesterday, no evidence of pulmonary embolism clinically I never thought that the patient had pulmonary embolism and the clinical presentation is not a presentation of pulmonary embolism. 04/19/2022, the patient intermittently follows commands and his condition is essentially same as yesterday without any major changes. At times, he follows simple commands such as raising his eyebrows or wiggling his toes. He is only receiving Ativan. No others IV sedation for now. He is also on 100 mg of Seroquel twice a day. He remains on a mechanical ventilator on a pressure control at the rate of 18 with a pressure control of 20 FiO2 of 40% with a PEEP of 5. Rest or secretions are still active and the patient is being suctioned adequately. He is on IV cefepime as the patient was Serratia marcescens in his sputum. Chest x-ray from today is essentially the same. Tracheostomy tube is in a good location. The patient remains hemodynamically stable. Patient is bronchodilators and patient remains on steroids. He is on IV Solu Medrol 60 mg every 6 hours. Blood gases from today shows a pH of 7.42 with a pCO2 of 69 and pO2 of 62. He was having significant amount of third spacing and edema. He was given a dose of Lasix yesterday with adequate diuresis. His net fluid balance is -1.4 L since yesterday. He continues to receive enteral feeding and the patient is currently on Nepro at the rate of 27 mL an hour. His cardiac rhythm remains sinus. He remains on anticoagulation with Eliquis. The main issue for now this is generalized debility and advanced lung disease. His mentation is also poor and the patient is extremely weak which obviously is affecting his further weaning process. Meanwhile, the patient's chest x-ray from today is essentially clear and tracheostomy tube is in a good location. On and off, the patient developed some leak around the tracheostomy tube requiring more air in the balloon. Labs from today shows a sodium level of 143, potassium level is at 3.9, serum bicarbonate of 42 with a in a 59 and creatinine 0.6. The white cell count is at 19.7 with a hemoglobin of 10.1. Reevaluated today on 04/20/22, patient remains in ICU, presently on pressure control mode of mechanical ventilation with pressure control of 20 inspiratory time of 0.9 rate of 18 FiO2 100% and I cut it down to 80% PEEP of 5 and I increased it to 10. ABG today showed a pO2 of 50 pCO2 75 pH of 7.37. Patient remains on cefepime for his Serratia pneumonia. Remains on eliquis, he is also on Nepro enteral feeding at 27 mL/h, patient is on clevidipine and on IV fluid at 0.9 KVO. WBC count is 26.4 hemoglobin is 10.1 basic metabolic profile is basically normal. BUN is 62 creatinine 0.74, liver enzymes are relatively normal. Patient is not requiring any propofol at present, he is however on Seroquel. Last night his FiO2 had to be increased. And today I had to increase his PEEP, cut down his FiO2 back to 80%, no plans to initiate any weaning trials whatsoever today, patient is not a candidate for any weaning at this point. As a matter of fact his prognosis is getting worse on a daily basis. No family members available at bedside. Chest x-ray is basically not showing much of a change in his infiltrates, continues to have significant airspace disease mostly in the left lower lobe Reevaluated today on 04/21/22, patient remains in the ICU, remains intubated and mechanically ventilated, he is on pressure control mode of mechanical ventilation, blood pressure control of 20 inspiratory time of 0.9, FiO2 60% PEEP of 10 rate of 18. ABG showed a pO2 of 72 pCO2 65 pH of 7.44. Remains on enteral feeding/Nepro remains on cefepime is also on Solu-Medrol 60 mg IV push every 6 hours Cleviprex at 10 mg/h and he is on eliquis. Not much of a change overnight, chest x-ray today showed slight worsening of the pneumonia in the left lower lobe. Patient is arousable, however he seems to be quite restless and agitated with the tracheostomy, he follows simple instructions like squeezing hands and wiggling toes. Seems to be appropriate and that as he seems to be quite agitated. WBC count is elevated at 24.6 hemoglobin is 9.2, basic metabolic profile is relatively unremarkable except for bicarb of 41 pH Reevaluated today on 04/22/22, patient remains intubated mechanically ventilated he is on pressure control of 20 inspiratory time of 0.9 rate of 18 FiO2 50% PEEP down to 5 ABG showed a pO2 of 105 pCO2 65 pH 7.42 hence his PEEP was cut down to 5 and FiO2 the same. Today I'm getting give the patient a trial of pressure support of 14 and CPAP of 5. Will continue the same mode as long as tolerated possibly today. Patient had at least 3 attempts of trial to wean on 04/20, 04/21 and today, doubt the patient will tolerate weaning but we will continue to try anyway. Again I'm trying to pressure support of 14 and pressure support of 14 and CPAP 5. Chest x-ray continues to show extensive disease/disease in the lower lobe especially in the left lower lobe. Hence the patient remains on antibiotics. Continues to have leukocytosis with WBC of 23.8 hemoglobin is 8.8 basic metabolic profile is normal bicarb is 39 BUN is 77 creatinine 0.43. Patient remains on enteral feeding, using Nepro at 27 mL per hour. Remains on GI and DVT prophylaxis. Reevaluated today on 04/23/22, patient remains in the ICU, intubated and mechanically ventilated. He is on assist control of 20, volume 500 FiO2 50% PEEP of 5, ABG showed a pO2 of 91 pCO2 79 pH of 7.32, however the patient had issues with the tracheostomy and cuff leak overnight. Today we went ahead and changed his tracheostomy and place a new one, and so far seems to be working well. Hopefully later today the patient could be given another trial of weaning with pressure support and CPAP, he failed multiple previous attempts with pressure support and CPAP. But we will continue trying every day. In the meantime I will try to discontinue his Cleviprex and start the patient on hydralazine he is also on amlodipine as well as clonidine, blood pressure seems to be better controlled nonetheless is still requiring Cleviprex drip today at 12 mg per hour. Patient is not requiring any pressors. He is requiring Ativan intermittently. And he is also on Nepro enteral feeding. Today no major change was made in the ventilator settings except he was placed on the percent at the time when we bronchoscope the patient and changed his tracheostomy tube today. Labs today showed WBC count 25.3 hemoglobin is 9.3 sodium is 147 potassium 4.0 chloride 104 BUN 65 creatinine 0.65. Hence I will change his main IV fluid to D5 for 5 or D5W. To help lower down his sodium. May even consider free water f lushes. Repeat PCR for COVID-19 was positive again today. Patient remains on updrafts, he is also on Lipitor, eliquis 5 mg twice a day, hydralazine was added today. Patient is on Dilaudid, he is also on gabapentin, remains on Seroquel at 100 mg by mouth twice a day and Requip. Remains on methylprednisolone 60 every 6, he is off antibiotics. Reevaluated today on 04/24/22, patient remains in the ICU, intubated mechanically ventilated. Patient has been experiencing intermittent episodes of agitation, intermittently desaturating up and down, and his ABG is morning was marginal at best. ABG showed a pO2 of 65 pCO2 72 pH of 7.35, but since the ABG was done, his ventilator settings were adjusted since he was desaturating, and he is now on rate of 22, tidal volume 500, FiO2 was increased from 60% to 70%, and PEEP is now 10 instead of 5. Patient remains on Cleviprex at 4 mg/h, he is receiving Nepro at 27 mL per hour D5W at 75 mL per hour. Patient is intermittently on Ativan and Dilaudid, today he is not even anywhere Beer weaning and I would not even attempt to wean the patient. Explained to the family at bedside about his condition, and stressed to them that the patient is not doing well, and he will not to do well considering his overall clinical picture. Family still insisting on full measures and not willing to consider comfort care measures at this point. Chest x-ray basically showing no change. Continues to have bilateral patchy airspace disease in left lower lobe and right lower lobe. And left hilar mass is noted previous sputum cultures were positive for Serratia marcescens and for Haemophilus influenza. Considering the patient is having leukocytosis again with WBC count of 32.4 hemoglobin is 9.5, I will likely restart the patient on antibiotics in the form of Zosyn Reevaluated today on 04/25/22, not much of a globe changer the last 24 hours. Patient however is requiring more FiO2 he is up now to 65% FiO2, his vent settings have changed she is on assist control rate of 22, tidal volume of 550 FiO2 went down to 65% from 75% earlier, and PEEP remains at 10. Patient had an ABG showed a pO2 of 88 pCO2 86 pH of 7.23, hence the vent settings with adjusted based on the ABG. Patient is still on Nepro at 27 mL/h, Zosyn was restarted yesterday because of his leukocytosis and worsening chest x-ray. Significant airspace disease noted bilaterally, I am now concerned about the possibility of lymphangitic carcinomatosis. White count is improving today after starting Zosyn yesterday. Clinically the patient is not showing any signs of improvement. I touch bases with the family yesterday, made him aware that the patient is quite ill, and the chances are he would not make it out of this hospitalization. They still insisted on full code measures, and I believe we may have to consider involving the hospital ethics committee to discuss his situation with the family again. Considering his overall picture, the patient will not be accepted into any ventilator facility. He is definitely not weanig and again I strongly feel that the patient will not make it all live out of the hospital. Previously on today's 23.4 hemoglobin is 8.7 and lites are normal, BUN is 76 creatinine is 0.51 Objective - Vital Signs Vital signs: Vital Signs Temp 97.6 F 04/25/22 09:00 Pulse 75 04/25/22 09:00 Resp 24 04/25/22 09:00 BP 114/66 04/25/22 09:00 Pulse Ox 92 L 04/25/22 09:00 FiO2 65 04/25/22 09:00 Intake & Output 04/24/22 04/25/22 04/25/22 18:59 06:59 18:59 Intake Total 0796.036 8661 328.014 Output Total 515 405 110 Balance 496.096 0640 218.014 Weight 86.3 kg Intake: IV 936 2114 144 Dextrose 5% in Water 1, 900 975 115 000 ml @ 75 mls/hr IV . [id number] [facility] Rx#:[id number] Piperacillin-Tazobactam 3 100 .375 gm In Sodium Chloride 0.9% 100 ml @ 25 mls/hr IVPB Q8HR [facility] Rx# :[id number] Sodium Chloride 0.9% 1, 1000 20 000 ml @ 999 mls/hr IV . [id number] [facility] Rx#:[id number] pressure bag 36 39 9 Intake, IV Titration 36.967 50 103.014 Amount Clevidipine Butyrate 25 36.967 50 mg In Empty Bag 1 bag @ 1 MG/HR 2 mls/hr IV .Q24H [facility] Rx#:[id number] Norepinephrine 4 mg In 3.014 Sodium Chloride 0.9% 250 ml @ 0.05 MCG/KG/MIN 16. 44 mls/hr IV .[id number] [facility] Rx#:[id number] Piperacillin-Tazobactam 3 100 .375 gm In Sodium Chloride 0.9% 100 ml @ 25 mls/hr IVPB Q8HR [facility] Rx# :[id number] Tube Feeding 324 351 81 Other 90 150 Output: Urine 515 405 110 Other: Voiding Method Indwelling Catheter Indwelling Catheter ABP, PAP, CO, CI - Last Documented Arterial Blood Pressure 111/50 - Exam GENERAL: Reveals a 71-year-old white male on mechanical ventilation, HEENT: PERRLA, EOMI, anicteric, no neck masses, no JVD, tracheostomy seems to be intact. This is a relatively new tracheostomy tube. CARDIOVASCULAR: Distant S1 and S2 no S3 gallop. No murmur. PULMONARY: Symmetrical chest expansion, scattered rhonchi and crackles noted bilaterally.. ABDOMEN: Soft nontender no megaly no rebound no guarding, positive bowel sounds. PEG tube is intact. MUSCULOSKELETAL: No deformities and no limitation in range of motion EXTREMITIES: Mild clubbing, 2+ bipedal edema and edema noted in upper extremities bilaterally., no cyanosis NEUROLOGICAL: Patient is sedated, he is receiving Ativan, intermittently, off Dilaudid last night because of relatively low blood pressure, SKIN: No rashes. Psychiatric:Unable to fully assess - Labs CBC & Chem 7: 04/25/22 04:45 04/25/22 04:45 Labs: Abnormal Lab Results - Last 24 Hours (Table) 04/24/22 04/24/22 04/25/22 Range/Units 11:31 17:26 00:14 WBC (3.8-10.6) k/uL RBC (4.30-5.90) m/uL Hgb (13.0-17.5) gm/dL Hct (39.0-53.0) % MCV (80.0-100.0) fL MCHC (31.0-37.0) g/dL RDW (11.5-15.5) % Macrocytosis ABG pH (7.35-7.45) ABG pCO2 (35-45) mmHg ABG HCO3 (21-25) mmol/L ABG Total CO2 (19-24) mmol/L ABG Hematocrit (34.0-46.0) % Hemoglobin (13.0-17.5) gm/dL Carbon Dioxide (22-30) mmol/L BUN (9-20) mg/dL Creatinine (0.66-1.25) mg/dL Glucose (74-99) mg/dL POC Glucose (mg/dL) 238 H 198 H 201 H (70-110) mg/dL 04/25/22 04/25/22 04/25/22 Range/Units 04:45 04:45 05:56 WBC 23.4 H (3.8-10.6) k/uL RBC 2.86 L (4.30-5.90) m/uL Hgb 8.7 L (13.0-17.5) gm/dL Hct 29.9 L (39.0-53.0) % MCV 104.6 H (80.0-100.0) fL MCHC 29.1 L (31.0-37.0) g/dL RDW 20.8 H (11.5-15.5) % Macrocytosis Marked A ABG pH 7.23 L (7.35-7.45) ABG pCO2 86 H* (35-45) mmHg ABG HCO3 36 H (21-25) mmol/L ABG Total CO2 39 H (19-24) mmol/L ABG Hematocrit 28 L (34.0-46.0) % Hemoglobin 9.0 L (13.0-17.5) gm/dL Carbon Dioxide 37 H (22-30) mmol/L BUN 76 H (9-20) mg/dL Creatinine 0.51 L (0.66-1.25) mg/dL Glucose 180 H (74-99) mg/dL POC Glucose (mg/dL) (70-110) mg/dL 04/25/22 Range/Units 06:31 WBC (3.8-10.6) k/uL RBC (4.30-5.90) m/uL Hgb (13.0-17.5) gm/dL Hct (39.0-53.0) % MCV (80.0-100.0) fL MCHC (31.0-37.0) g/dL RDW (11.5-15.5) % Macrocytosis ABG pH (7.35-7.45) ABG pCO2 (35-45) mmHg ABG HCO3 (21-25) mmol/L ABG Total CO2 (19-24) mmol/L ABG Hematocrit (34.0-46.0) % Hemoglobin (13.0-17.5) gm/dL Carbon Dioxide (22-30) mmol/L BUN (9-20) mg/dL Creatinine (0.66-1.25) mg/dL Glucose (74-99) mg/dL POC Glucose (mg/dL) 184 H (70-110) mg/dL Assessment and Plan Assessment: Impression: Acute on chronic hypoxic and hypercapnic respiratory failure intubated on 03/31, tracheostomy and PEG tube placement on 04/06, failure to wean from mechanical ventilation. Bilateral pneumonia secondary to Serratia marcescens and Haemophilus influenza, restarted yesterday on Zosyn again. COVID-19 infection confirmed on 04/10 and positive on 04/13, likely contracted from his who was also positive. Patient was tested again the day before yesterday and he tested positive again for COVID-19 Acute exacerbation of COPD History of squamous cell lung cancer diagnosed on 01/01/2022. Given systemic chemotherapy. Previous history of respiratory failure requiring intubation and mechanical ventilation tracheostomy and PEG tube placement, this was over 4 years ago. Generalized anxiety disorder. Severe COPD, FEV1 less than 35%. Degenerative joint disease Acute kidney injury Electrolytes imbalance, resolved. Bilateral cortical parietal ischemic changes, possible ischemic stroke. Status post tracheostomy tube change on 04/23/22. This was done mostly because of persistent cuff leak from the previous tracheostomy tube. Recommendation: Continue ventilatory support, patient is on assist control rate of 22 total volume 550 FiO2 65% PEEP of 10. Continue enteral feeding/nutritional support, this done via PEG tube. Continue bronchodilators Continue Zosyn. WBC count noted today to be lower since Zosyn was started Continue Seroquel. Continue eliquis for anticoagulation Continue Solu-Medrol. Continue GI and DVT prophylaxis Multiple attempts of weaning have failed, today the patient is not ready for any weaning Hold diuretics as the patient is relatively hypotensive today, and continue IV fluids. Continue to monitor electrolytes and sodium specifically. Family was made aware of his poor prognosis, they still insist on full code, I believe we may have to get ethics committee involved in this patient and address the issue of medical futility with the family. Remains full code as per family's wishes Critical care time is over 30 minutes Time with Patient: Greater than 30
[2022-04-25 11:45] LABS: Glucose,Whole Blood 171 mg/dL (70-110)
[2022-04-25] MEDS ORDERED: SODIUM CHLORIDE 0.9% 500 ML 500 ML IV ONE (12:17)
[2022-04-25 17:40] LABS: Glucose,Whole Blood 136 mg/dL (70-110)
[2022-04-25] MEDS: LATANOPROST 0.005% OPHTH DROPS 2.5 ML BTL BOTH EYES SCH (21:18)
[2022-04-25] MEDS: ATORVASTATIN 10 MG TAB PO SCH (21:18)
[2022-04-25 23:19] LABS: Glucose,Whole Blood 97 mg/dL (70-110)
--- NOTE | 2022-04-25 23:38 | P.PN ---
Subjective Progress Note Date: 04/20/22 Patient initially seen by Dr. Darrius Fisher. Please refer to his note for details. Patient is a 71-year-old male with prolonged ICU stay for pulmonary condition. Patient had COVID pneumonia and has history of lung cancer diagnosed in December 2021. Patient's computed tomography scan of head showed bilateral parietal region suspicious for early or acute ischemia. Cardiology declined KHANH. Patient is currently on Eliquis for possible bilateral strokes. Patient was seen for a follow-up today. Per nursing report, patient is not much improved. He opens eyes slightly. Patient raises eyebrows up and down, but no voluntary movement of the extremities. Patient has undergone tracheostomy and PEG placement. Objective - Vital Signs Vital signs: Vital Signs Temp 97.7 F 04/20/22 12:00 Pulse 90 04/20/22 12:30 Resp 18 04/20/22 12:30 BP 133/66 04/20/22 12:00 Pulse Ox 97 04/20/22 12:30 FiO2 60 04/20/22 23:08 Intake & Output 04/20/22 04/20/22 04/21/22 06:59 18:59 06:59 Intake Total 736.000 453.534 150 Output Total 1135 210 130 Balance -399.000 243.534 20 Weight 79.5 kg Intake: IV 299 185 39 Cefepime 2 gm In Sodium 100 Chloride 0.9% 100 ml @ 25 mls/hr IVPB Q8H [facility] Rx#: [id number] Sodium Chloride 0.9% 260 70 30 pressure bag 39 15 9 Intake, IV Titration 50.000 3.534 Amount Clevidipine Butyrate 25 50.000 3.534 mg In Empty Bag 1 bag @ 1 MG/HR 2 mls/hr IV .Q24H [facility] Rx#:[id number] Tube Feeding 297 135 81 Other 90 130 30 Output: Urine 1135 210 130 Other: Voiding Method Indwelling Catheter Indwelling Catheter Indwelling Catheter ABP, PAP, CO, CI - Last Documented Arterial Blood Pressure 138/58 - Exam On examination patient is an elderly male, who appears somewhat cachectic, has tracheostomy and PEG tube placed. Patient is unresponsive to ca lling his name. Patient is not on any sedation. Patient is comatose with GCS of 5. He briefly opens his eyes to loud voice. Patient does not follow commands. Patient's pupils are round and reacting. No obvious facial weakness. Patient grimaces only to painful stimuli. No spontaneous movement, no voluntary movement. Patient has significant edema of bilateral upper and lower extremities. Rest of the examination cannot be performed. No seizure-like activity. - Labs CBC & Chem 7: 04/25/22 04:45 04/25/22 04:45 Labs: Abnormal Lab Results - Last 24 Hours (Table) 04/20/22 04/20/22 04/20/22 Range/Units 03:41 03:41 04:33 WBC 26.4 H (3.8-10.6) k/uL RBC 3.25 L (4.30-5.90) m/uL Hgb 10.1 L (13.0-17.5) gm/dL Hct 32.8 L (39.0-53.0) % MCV 100.7 H (80.0-100.0) fL RDW 20.5 H (11.5-15.5) % Neutrophils # 25.6 H (1.3-7.7) k/uL Lymphocytes # 0.2 L (1.0-4.8) k/uL ABG pCO2 75 H* (35-45) mmHg ABG pO2 50 L* (83-108) mmHg ABG HCO3 43 H* (21-25) mmol/L ABG Total CO2 45 H (19-24) mmol/L ABG O2 Saturation 84.4 L (94-97) % ABG Hematocrit 29 L (34.0-46.0) % Hemoglobin 9.3 L (13.0-17.5) gm/dL Carbon Dioxide 42 H* (22-30) mmol/L BUN 62 H (9-20) mg/dL Glucose 201 H (74-99) mg/dL POC Glucose (mg/dL) (70-110) mg/dL Alkaline Phosphatase 134 H (38-126) U/L Total Protein 5.1 L (6.3-8.2) g/dL Albumin 2.5 L (3.5-5.0) g/dL 04/20/22 04/20/22 04/20/22 Range/Units 05:21 11:49 18:29 WBC (3.8-10.6) k/uL RBC (4.30-5.90) m/uL Hgb (13.0-17.5) gm/dL Hct (39.0-53.0) % MCV (80.0-100.0) fL RDW (11.5-15.5) % Neutrophils # (1.3-7.7) k/uL Lymphocytes # (1.0-4.8) k/uL ABG pCO2 (35-45) mmHg ABG pO2 (83-108) mmHg ABG HCO3 (21-25) mmol/L ABG Total CO2 (19-24) mmol/L ABG O2 Saturation (94-97) % ABG Hematocrit (34.0-46.0) % Hemoglobin (13.0-17.5) gm/dL Carbon Dioxide (22-30) mmol/L BUN (9-20) mg/dL Glucose (74-99) mg/dL POC Glucose (mg/dL) 175 H 188 H 142 H (70-110) mg/dL Alkaline Phosphatase (38-126) U/L Total Protein (6.3-8.2) g/dL Albumin (3.5-5.0) g/dL Assessment and Plan Assessment: Probable acute ischemic stroke over bilateral parietal on CT head. Unknown etiology. No a-fib reported so far. Encephalopathy due to multifactorial: Septic encephalopathy due to pneumonia/ COVID-19, Serratia and Haemophilus. Also component of metabolic/electrolyte abnormality with hypernatremia and medication effect (Ativan). 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 Cardiomyopathy with ejection fraction of 25-30% on recent 2Decho Diabetes with A1c 7.6 History of non-small cell lung cancer with a left hilar mass diagnosed in December 2021 the patient was given systemic chemotherapy. Plan: Continue Eliquis 5mg bid (started on 04/16/2022) and sufficient from neurological perspective. Continue Lipitor 10 mg daily at bedtime for now. Recent CT head on 04/18/2022 is unchanged compared to prior last 2 CT head. Cannot obtain MRI since the patient is on a ventilator. I personally reviewed CT head, appears probably chronic small vessel disease. Some vasogenic edema cannot be ruled out. May need repeat testing. Cardiology team does not feel KHANH is needed since no mass or vegetation on repeat 2D echo. CTA of head and neck showed no significant stenosis. 2-D echo revealed left ventricular ejection fraction 25-30% with global hypokinesis. Moderately dilated right ventricle. Hemoglobin A1c 7.6 LDL 107 Please avoid any further Dilaudid or any sedatives that will effect neurological examination. He is on Seroquel 100mg 1 tab bid per ICU team. We'll defer the rest of medical management to the primary ICU team.
--- NOTE | 2022-04-25 23:49 | P.PN ---
Subjective Progress Note Date: 04/24/[address] Dougherty. 04/24/2022 Patient is currently in the MICU and mechanical ventilator via trach. ABGs today showed pH of 7.35 PCO2 72 and PO2 65. On 70% FiO2 with PEEP of 10. Patient is being current on Cleviprex and is on tube feeding. Patient did have episodes of agitation. Afebrile. Continued on duo nebs, Symbicort and IV Solu-Medrol 60 mg every 6 hourly and also antibiotics in the form of Zosyn. Chest x-ray today showed tracheostomy cannula in appropriate position. Bibasilar airspace opacities which may be mildly worse on left compared to prior. Patient is status post tracheal cuff change on 04/23/2022 Laboratory data showed WBC 32.4 hemoglobin 9.5 and platelets 305 sodium 143 pota ssium 4.6 chloride 102 bicarb is 38 BUN 65 and creatinine 0.26 and albumin 2.4. Current medications reviewed.. Objective - Vital Signs Vital signs: Vital Signs Temp 97.1 F L 04/24/22 16:00 Pulse 75 04/24/22 19:00 Resp 30 H 04/24/22 19:00 BP 111/61 04/24/22 19:00 Pulse Ox 94 L 04/24/22 19:00 FiO2 80 04/24/22 19:43 Intake & Output 04/24/22 04/24/22 04/25/22 06:59 18:59 06:59 Intake Total 7909.400 6150.967 105 Output Total 870 515 35 Balance 643.000 871.967 70 Weight 83.8 kg Intake: IV 961 936 78 Dextrose 5% in Water 1, 825 900 75 000 ml @ 75 mls/hr IV . [id number] [facility] Rx#:[id number] Sodium Chloride 0.9% 100 pressure bag 36 36 3 Intake, IV Titration 138.000 36.967 Amount Clevidipine Butyrate 25 63.000 36.967 mg In Empty Bag 1 bag @ 1 MG/HR 2 mls/hr IV .Q24H [facility] Rx#:[id number] Dextrose 5% in Water 1, 75 000 ml @ 75 mls/hr IV . [id number] [facility] Rx#:[id number] Tube Feeding 324 324 27 Other 90 90 Output: Urine 870 515 35 Other: Voiding Method Indwelling Catheter Indwelling Catheter ABP, PAP, CO, CI - Last Documented Arterial Blood Pressure 113/47 - Exam PHYSICAL EXAMINATION: Patient is lying in the bed comfortably, no acute distress, awake alert and sedated. On mechanical ventilator via tracheostomy tube.. HEENT: Normocephalic. Neck is supple. Pupils reactive. Nostrils clear. Oral cavity is moist. Neck reveals no JVD, carotid bruits, or thyromegaly. CHEST EXAMINATION: Trachea is central. Symmetrical expansion. Lung lindsay clear to auscultation and percussion. CARDIAC: Normal S1, S2 with no gallops. No murmurs ABDOMEN: Soft. Bowel sounds present. Nontender. No organomegaly. No abdominal bruits. Extremities: reveal no edema. No clubbing or cyanosis Neurologically patient is on Ventilator. Sedated. No gross focal deficits noted Skin: No rash or skin lesions. Psychiatric: Coperative. Nonsuicidal, Musculoskeletal: No joint swelling or deformity. - Labs CBC & Chem 7: 04/25/22 04:45 04/25/22 04:45 Labs: Abnormal Lab Results - Last 24 Hours (Table) 04/24/22 04/24/22 04/24/22 Range/Units 00:11 04:25 04:25 WBC 32.4 H (3.8-10.6) k/uL RBC 3.17 L (4.30-5.90) m/uL Hgb 9.5 L (13.0-17.5) gm/dL Hct 32.2 L (39.0-53.0) % MCV 101.7 H (80.0-100.0) fL MCHC 29.7 L (31.0-37.0) g/dL RDW 20.8 H (11.5-15.5) % Macrocytosis Marked A ABG pCO2 (35-45) mmHg ABG pO2 (83-108) mmHg ABG HCO3 (21-25) mmol/L ABG Total CO2 (19-24) mmol/L ABG O2 Saturation (94-97) % ABG Hematocrit (34.0-46.0) % Hemoglobin (13.0-17.5) gm/dL Carbon Dioxide 38 H (22-30) mmol/L BUN 65 H (9-20) mg/dL Creatinine 0.26 L (0.66-1.25) mg/dL Glucose 217 H (74-99) mg/dL POC Glucose (mg/dL) 227 H (70-110) mg/dL Total Protein 4.7 L (6.3-8.2) g/dL Albumin 2.4 L (3.5-5.0) g/dL 04/24/22 04/24/22 04/24/22 Range/Units 05:20 06:12 11:31 WBC (3.8-10.6) k/uL RBC (4.30-5.90) m/uL Hgb (13.0-17.5) gm/dL Hct (39.0-53.0) % MCV (80.0-100.0) fL MCHC (31.0-37.0) g/dL RDW (11.5-15.5) % Macrocytosis ABG pCO2 72 H* (35-45) mmHg ABG pO2 65 L (83-108) mmHg ABG HCO3 40 H* (21-25) mmol/L ABG Total CO2 42 H (19-24) mmol/L ABG O2 Saturation 92.8 L (94-97) % ABG Hematocrit 30 L (34.0-46.0) % Hemoglobin 9.8 L (13.0-17.5) gm/dL Carbon Dioxide (22-30) mmol/L BUN (9-20) mg/dL Creatinine (0.66-1.25) mg/dL Glucose (74-99) mg/dL POC Glucose (mg/dL) 226 H 238 H (70-110) mg/dL Total Protein (6.3-8.2) g/dL Albumin (3.5-5.0) g/dL 04/24/22 Range/Units 17:26 WBC (3.8-10.6) k/uL RBC (4.30-5.90) m/uL Hgb (13.0-17.5) gm/dL Hct (39.0-53.0) % MCV (80.0-100.0) fL MCHC (31.0-37.0) g/dL RDW (11.5-15.5) % Macrocytosis ABG pCO2 (35-45) mmHg ABG pO2 (83-108) mmHg ABG HCO3 (21-25) mmol/L ABG Total CO2 (19-24) mmol/L ABG O2 Saturation (94-97) % ABG Hematocrit (34.0-46.0) % Hemoglobin (13.0-17.5) gm/dL Carbon Dioxide (22-30) mmol/L BUN (9-20) mg/dL Creatinine (0.66-1.25) mg/dL Glucose (74-99) mg/dL POC Glucose (mg/dL) 198 H (70-110) mg/dL Total Protein (6.3-8.2) g/dL Albumin (3.5-5.0) g/dL Assessment and Plan Assessment: Acute on chronic hypoxic and hypercapnic respiratory failure. Status post tr acheostomy and PEG tube placement on 04/06/2022. Status post tracheostomy change on 04/23/2022 Bilateral pneumonia Acute COVID-19 infection confirmed on 04/10/2022 Acute exacerbation of COPD History of squamous cell lung cancer s/p chemotherapy in December 2021 History of respiratory failure requiring mechanical ventilator. Generalized anxiety disorder Severe COPD Degenerative joint disease Acute kidney injury Hypernatremia. Improving Bilateral cortical bilateral ischemic changes possible ischemic stroke. Plan: Patient is currently on mechanical ventilator with assist control. Continue IV steroids, antibiotics and wound Zosyn. On anticoagulation with Eliquis. Currently on IV hydration with D5 water and follow-up electrolytes. Prognosis is poor at this time. Time with Patient: Greater than 30
--- NOTE | 2022-04-25 23:50 | P.PN ---
Subjective Progress Note Date: 04/25/22 04/25/2022: Patient was seen for a follow-up. Patient currently not on any sedatives. Per nursing report, patient opens eyes on commands, but does not follow any other commands. Clinically unchanged. No seizure-like activity. Family wants full care at this time. Patient has tracheostomy and PEG tube placement. 04/20/2022: Patient initially seen by Dr. Darrius Fisher. Please refer to his note for details. Patient is a 71-year-old male with prolonged ICU stay for pulmonary condition. Patient had COVID pneumonia and has history of lung cancer diagnosed in December 2021. Patient's computed tomography scan of head showed bilateral parietal region suspicious for early or acute ischemia. Cardiology de clined KHANH. Patient is currently on Eliquis for possible bilateral strokes. Patient was seen for a follow-up today. Per nursing report, patient is not much improved. He opens eyes slightly. Patient raises eyebrows up and down, but no voluntary movement of the extremities. Patient has undergone tracheostomy and PEG placement. Objective - Vital Signs Vital signs: Vital Signs Temp 97.5 F L 04/25/22 20:00 Pulse 83 04/25/22 23:15 Resp 25 H 04/25/22 23:15 BP 109/54 04/25/22 23:15 Pulse Ox 93 L 04/25/22 23:15 FiO2 65 04/25/22 23:03 Intake & Output 04/25/22 04/25/22 04/26/22 06:59 18:59 06:59 Intake Total 2665 1846.885 300.703 Output Total 405 350 230 Balance 2260 1496.885 70.703 Weight 86.3 kg Intake: IV 2114 404 92 D5W @10mls/hr 40 Dextrose 5% in Water 1, 975 315 000 ml @ 75 mls/hr IV . [id number] [facility] Rx#:[id number] Piperacillin-Tazobactam 3 100 .375 gm In Sodium Chloride 0.9% 100 ml @ 25 mls/hr IVPB Q8HR [facility] Rx# :[id number] Sodium Chloride 0.9% 40 Sodium Chloride 0.9% 1, 1000 50 000 ml @ 999 mls/hr IV . Q1H1M [facility] Rx#:[id number] pressure bag 39 39 12 Intake, IV Titration 50 1001.885 70.703 Amount Clevidipine Butyrate 25 50 mg In Empty Bag 1 bag @ 1 MG/HR 2 mls/hr IV .Q24H [facility] Rx#:[id number] Norepinephrine 4 mg In 326.885 45.703 Sodium Chloride 0.9% 250 ml @ 0.05 MCG/KG/MIN 16. 44 mls/hr IV .[id number] [facility] Rx#:[id number] Piperacillin-Tazobactam 3 175 25 .375 gm In Sodium Chloride 0.9% 100 ml @ 25 mls/hr IVPB Q8HR [facility] Rx# :[id number] Sodium Chloride 0.9% 500 500 ml 500 ml @ 999 mls/hr IV .Q31M [facility] Rx#:[id number] Tube Feeding 351 351 108 Other 150 90 30 Output: Urine 405 350 230 Other: Voiding Method Indwelling Catheter Indwelling Catheter Indwelling Catheter ABP, PAP, CO, CI - Last Documented Arterial Blood Pressure 93/39 - Exam On examination patient is an elderly male, who appears somewhat cachectic, has tracheostomy and PEG tube placed. Patient is unresponsive to calling his name. Patient is not on any sedation. Patient is comatose with GCS of 5. He briefly opens his eyes to loud voice. Patient does not follow commands. Patient's pupils are slightly unequal, the right pupil is larger than the left. Both are reactive. Oculocephalics are absent. Corneals present. No obvious facial weakness. Patient's mouth is open real wide. Patient grimaces only to painful stimuli. No spontaneous movement, no voluntary movement. Patient has significant edema of bilateral upper and lower extremities. Rest of the examination cannot be performed. No seizure-like activity. - Labs CBC & Chem 7: 04/25/22 04:45 04/25/22 04:45 Labs: Abnormal Lab Results - Last 24 Hours (Table) 04/25/22 04/25/22 04/25/22 Range/Units 00:14 04:45 04:45 WBC 23.4 H (3.8-10.6) k/uL RBC 2.86 L (4.30-5.90) m/uL Hgb 8.7 L (13.0-17.5) gm/dL Hct 29.9 L (39.0-53.0) % MCV 104.6 H (80.0-100.0) fL MCHC 29.1 L (31.0-37.0) g/dL RDW 20.8 H (11.5-15.5) % Macrocytosis Marked A ABG pH (7.35-7.45) ABG pCO2 (35-45) mmHg ABG HCO3 (21-25) mmol/L ABG Total CO2 (19-24) mmol/L ABG Hematocrit (34.0-46.0) % Hemoglobin (13.0-17.5) gm/dL Carbon Dioxide 37 H (22-30) mmol/L BUN 76 H (9-20) mg/dL Creatinine 0.51 L (0.66-1.25) mg/dL Glucose 180 H (74-99) mg/dL POC Glucose (mg/dL) 201 H (70-110) mg/dL 04/25/22 04/25/22 04/25/22 Range/Units 05:56 06:31 11:44 WBC (3.8-10.6) k/uL RBC (4.30-5.90) m/uL Hgb (13.0-17.5) gm/dL Hct (39.0-53.0) % MCV (80.0-100.0) fL MCHC (31.0-37.0) g/dL RDW (11.5-15.5) % Macrocytosis ABG pH 7.23 L (7.35-7.45) ABG pCO2 86 H* (35-45) mmHg ABG HCO3 36 H (21-25) mmol/L ABG Total CO2 39 H (19-24) mmol/L ABG Hematocrit 28 L (34.0-46.0) % Hemoglobin 9.0 L (13.0-17.5) gm/dL Carbon Dioxide (22-30) mmol/L BUN (9-20) mg/dL Creatinine (0.66-1.25) mg/dL Glucose (74-99) mg/dL POC Glucose (mg/dL) 184 H 171 H (70-110) mg/dL 04/25/22 Range/Units 17:40 WBC (3.8-10.6) k/uL RBC (4.30-5.90) m/uL Hgb (13.0-17.5) gm/dL Hct (39.0-53.0) % MCV (80.0-100.0) fL MCHC (31.0-37.0) g/dL RDW (11.5-15.5) % Macrocytosis ABG pH (7.35-7.45) ABG pCO2 (35-45) mmHg ABG HCO3 (21-25) mmol/L ABG Total CO2 (19-24) mmol/L ABG Hematocrit (34.0-46.0) % Hemoglobin (13.0-17.5) gm/dL Carbon Dioxide (22-30) mmol/L BUN (9-20) mg/dL Creatinine (0.66-1.25) mg/dL Glucose (74-99) mg/dL POC Glucose (mg/dL) 136 H (70-110) mg/dL Assessment and Plan Assessment: Altered mental status, probably due to severe toxic metabolic encephalopathy. Abnormal CT head, with possibility of subacute ischemic stroke over bilateral parietal on CT head. Unknown etiology. No a-fib reported so far. Encephalopathy due to multifactorial: Septic encephalopathy due to recent pneumonia/COVID-19, Serratia and Haemophilus. Also component of metabolic/electrolyte abnormality with significant hypercapnia with pCO2 of 86. Patient also acidotic with pH 7.23. Patient also has subacute renal failure, with worsening BUN and creatinine. 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 Cardiomyopathy with ejection fraction of 25-30% on recent 2Decho Diabetes with A1c 7.6 History of non-small cell lung cancer with a left hilar mass diagnosed in December 2021 the patient was given systemic chemotherapy. Plan: Continue Eliquis 5mg bid (started on 04/16/2022) and sufficient from neurological perspective. Continue Lipitor 10 mg daily at bedtime for now. Recent CT head on 04/18/2022 is unchanged compared to prior last 2 CT head. I personally reviewed CT head, appears probably chronic small vessel disease. Some vasogenic edema cannot be ruled out. Consider repeating CT head. Cardiology team does not feel KHANH is needed since no mass or vegetation on repeat 2D echo. CTA of head and neck showed no significant stenosis. 2-D echo revealed left ventricular ejection fraction 25-30% with global hypokin esis. Moderately dilated right ventricle. Hemoglobin A1c 7.6 LDL 107 Stop Requip as patient is very sedated. Consider stopping Seroquel, as patient is very somnolent. On Seroquel 100 mg twice a day. We'll defer the rest of medical management to the primary ICU team. Patient has multiple medical issues. Patient has severe encephalopathy. We will check EEG and a repeat CT head. Dr. Darrius Fisher Will resume neurology service in the morning.
--- NOTE | 2022-04-25 23:51 | P.PN ---
Subjective Progress Note Date: 04/25/[address] Dougherty. 04/24/2022 Patient is currently in the MICU and mechanical ventilator via trach. ABGs today showed pH of 7.35 PCO2 72 and PO2 65. On 70% FiO2 with PEEP of 10. Patient is being current on Cleviprex and is on tube feeding. Patient did have episodes of agitation. Afebrile. Continued on duo nebs, Symbicort and IV Solu-Medrol 60 mg every 6 hourly and also antibiotics in the form of Zosyn. Chest x-ray today showed tracheostomy cannula in appropriate position. Bibasilar airspace opacities which may be mildly worse on left compared to prior. Patient is status post tracheal cuff change on 04/23/2022 Laboratory data showed WBC 32.4 hemoglobin 9.5 and platelets 305 sodium 143 pota ssium 4.6 chloride 102 bicarb is 38 BUN 65 and creatinine 0.26 and albumin 2.4. 04/25/2022 Patient is in the MICU. On mechanical ventilator via tracheostomy tube. Patient is comfortable Volume of 450 and FiO2 65% and PEEP of 10. Patient is able to open his eyes with verbal stimuli. Patient is tube feeding and currently on IV steroids and antibiotics on hold Zosyn. Chest x-ray showed chronic parenchymal changes with bibasilar and left midlung acute infiltrate MRI atelectasis lead to more str ictly. No significant change from day earlier. Laboratory pressure WBC count trending down to 23.4 hemoglobin 8.7 and platelets 241 BUN 76 and creatinine 0.51 and bicarb level is 37. Pulmonary is on board. Current medications reviewed.. Objective - Vital Signs Vital signs: Vital Signs Temp 97.5 F L 04/25/22 20:00 Pulse 70 04/25/22 21:00 Resp 24 04/25/22 21:00 BP 101/53 04/25/22 21:00 Pulse Ox 95 04/25/22 21:00 FiO2 65 04/25/22 20:00 Intake & Output 04/25/22 04/25/22 04/26/22 06:59 18:59 06:59 Intake Total 2665 1846.885 144.686 Output Total 405 350 135 Balance 2260 1496.885 9.686 Weight 86.3 kg Intake: IV 2114 404 46 D5W @10mls/hr 20 Dextrose 5% in Water 1, 975 315 000 ml @ 75 mls/hr IV . [id number] [facility] Rx#:[id number] Piperacillin-Tazobactam 3 100 .375 gm In Sodium Chloride 0.9% 100 ml @ 25 mls/hr IVPB Q8HR [facility] Rx# :[id number] Sodium Chloride 0.9% 20 Sodium Chloride 0.9% 1, 1000 50 000 ml @ 999 mls/hr IV . Q1H1M [facility] Rx#:[id number] pressure bag 39 39 6 Intake, IV Titration 50 1001.885 14.686 Amount Clevidipine Butyrate 25 50 mg In Empty Bag 1 bag @ 1 MG/HR 2 mls/hr IV .Q24H [facility] Rx#:[id number] Norepinephrine 4 mg In 326.885 14.686 Sodium Chloride 0.9% 250 ml @ 0.05 MCG/KG/MIN 16. 44 mls/hr IV .[id number] [facility] Rx#:[id number] Piperacillin-Tazobactam 3 175 .375 gm In Sodium Chloride 0.9% 100 ml @ 25 mls/hr IVPB Q8HR [facility] Rx# :[id number] Sodium Chloride 0.9% 500 500 ml 500 ml @ 999 mls/hr IV .Q31M [facility] Rx#:[id number] Tube Feeding 351 351 54 Other 150 90 30 Output: Urine 405 350 135 Other: Voiding Method Indwelling Catheter Indwelling Catheter Indwelling Catheter ABP, PAP, CO, CI - Last Documented Arterial Blood Pressure 103/45 - Exam PHYSICAL EXAMINATION: Patient is lying in the bed comfortably, no acute distress, awake alert and sedated. On mechanical ventilator via tracheostomy tube.. HEENT: Normocephalic. Neck is supple. Pupils reactive. Nostrils clear. Oral cavity is moist. Neck reveals no JVD, carotid bruits, or thyromegaly. CHEST EXAMINATION: Trachea is central. Symmetrical expansion. Lung lindsay clear to auscultation and percussion. CARDIAC: Normal S1, S2 with no gallops. No murmurs ABDOMEN: Soft. Bowel sounds present. Nontender. No organomegaly. No abdominal bruits. Extremities: reveal no edema. No clubbing or cyanosis Neurologically patient is on Ventilator. Sedated. No gross focal deficits noted Skin: No rash or skin lesions. Psychiatric: Coperative. Nonsuicidal, Musculoskeletal: No joint swelling or deformity. - Labs CBC & Chem 7: 04/25/22 04:45 04/25/22 04:45 Labs: Abnormal Lab Results - Last 24 Hours (Table) 04/25/22 04/25/22 04/25/22 Range/Units 00:14 04:45 04:45 WBC 23.4 H (3.8-10.6) k/uL RBC 2.86 L (4.30-5.90) m/uL Hgb 8.7 L (13.0-17.5) gm/dL Hct 29.9 L (39.0-53.0) % MCV 104.6 H (80.0-100.0) fL MCHC 29.1 L (31.0-37.0) g/dL RDW 20.8 H (11.5-15.5) % Macrocytosis Marked A ABG pH (7.35-7.45) ABG pCO2 (35-45) mmHg ABG HCO3 (21-25) mmol/L ABG Total CO2 (19-24) mmol/L ABG Hematocrit (34.0-46.0) % Hemoglobin (13.0-17.5) gm/dL Carbon Dioxide 37 H (22-30) mmol/L BUN 76 H (9-20) mg/dL Creatinine 0.51 L (0.66-1.25) mg/dL Glucose 180 H (74-99) mg/dL POC Glucose (mg/dL) 201 H (70-110) mg/dL 04/25/22 04/25/22 04/25/22 Range/Units 05:56 06:31 11:44 WBC (3.8-10.6) k/uL RBC (4.30-5.90) m/uL Hgb (13.0-17.5) gm/dL Hct (39.0-53.0) % MCV (80.0-100.0) fL MCHC (31.0-37.0) g/dL RDW (11.5-15.5) % Macrocytosis ABG pH 7.23 L (7.35-7.45) ABG pCO2 86 H* (35-45) mmHg ABG HCO3 36 H (21-25) mmol/L ABG Total CO2 39 H (19-24) mmol/L ABG Hematocrit 28 L (34.0-46.0) % Hemoglobin 9.0 L (13.0-17.5) gm/dL Carbon Dioxide (22-30) mmol/L BUN (9-20) mg/dL Creatinine (0.66-1.25) mg/dL Glucose (74-99) mg/dL POC Glucose (mg/dL) 184 H 171 H (70-110) mg/dL 04/25/22 Range/Units 17:40 WBC (3.8-10.6) k/uL RBC (4.30-5.90) m/uL Hgb (13.0-17.5) gm/dL Hct (39.0-53.0) % MCV (80.0-100.0) fL MCHC (31.0-37.0) g/dL RDW (11.5-15.5) % Macrocytosis ABG pH (7.35-7.45) ABG pCO2 (35-45) mmHg ABG HCO3 (21-25) mmol/L ABG Total CO2 (19-24) mmol/L ABG Hematocrit (34.0-46.0) % Hemoglobin (13.0-17.5) gm/dL Carbon Dioxide (22-30) mmol/L BUN (9-20) mg/dL Creatinine (0.66-1.25) mg/dL Glucose (74-99) mg/dL POC Glucose (mg/dL) 136 H (70-110) mg/dL Assessment and Plan Assessment: Acute on chronic hypoxic and hypercapnic respiratory failure. Status post tracheostomy and PEG tube placement on 04/06/2022. Status post tracheostomy change on 04/23/2022 Bilateral pneumonia Acute COVID-19 infection confirmed on 04/10/2022 Acute exacerbation of COPD History of squamous cell lung cancer s/p chemotherapy in December 2021 History of respiratory failure requiring mechanical ventilator. Generalized anxiety disorder Severe COPD Degenerative joint disease Acute kidney injury Hypernatremia. Improving Bilateral cortical bilateral ischemic changes possible ischemic stroke. Plan: Patient is currently on mechanical ventilator with assist control. Continue IV steroids, antibiotics and wound Zosyn. On anticoagulation with Eliquis. Currently on IV hydration with D5 water and follow-up electrolytes. Prognosis is poor at this time. Time with Patient: Greater than 30
[2022-04-26] MEDS: ALBUTEROL HFA INHALER INHALATION SCH ×6 (02:40→22:56)
[2022-04-26 03:27] LABS: Anisocytosis Moderate; Basophils % (A) 0 %; Eosinophils % (A) 0 %; HGB 8.9 gm/dL (13.0-17.5); Hypochromasia Marked; Lymphocytes # (A) 0.1 k/uL (1.0-4.8); Lymphocytes % (A) 1 %; MCH 30.8 pg (25.0-35.0); MCHC 29.8 g/dL (31.0-37.0); MCV 103.4 fL (80.0-100.0); Macrocytosis Marked; Mean Platelet Volume 9.5; Monocytes # (A) 0.5 k/uL (0-1.0); Monocytes % (A) 2 %; Neutrophils # (A) 24.2 k/uL (1.3-7.7); Neutrophils % (A) 97 %; Platelet Count 257 k/uL (150-450); RDW 21.2 % (11.5-15.5); WBC 24.9 k/uL (3.8-10.6)
[2022-04-26 03:53] LABS: African American GFR (CKD) >90 (>60 ml/min/1.73 sqM); Anion Gap 5 mmol/L; Blood Urea Nitrogen 75 mg/dL (9-20); Calcium 8.7 mg/dL (8.4-10.2); Carbon Dioxide 35 mmol/L (22-30); Chloride 100 mmol/L (98-107); Glucose 94 mg/dL (74-99); Non-African American GFR(CKD) 79 (>60 ml/min/1.73 sqM); Potassium 4.4 mmol/L (3.5-5.1); Sodium 140 mmol/L (137-145)
[2022-04-26 05:08] LABS: ABG HCO3 36 mmol/L (21-25); ABG Hematocrit 26 % (34.0-46.0); ABG Oxygen Saturation 95.3 % (94-97); ABG PH 7.32 (7.35-7.45); ABG PO2 72 mmHg (83-108); ABG TCO2 38 mmol/L (19-24)
[2022-04-26] MEDS: INSULIN ASPART (NovoLOG) 100 UNIT/ML VIAL SQ SCH ×8 (05:08→23:24)
[2022-04-26 05:11] LABS: ABG PCO2 71 mmHg (35-45); Allen Test Performed? no
[2022-04-26] MEDS: INSULIN DETEMIR (LEVEMIR) 100 UNIT/ML SYR SQ SCH (05:13)
[2022-04-26] MEDS: methylPREDNISolone SOD SUCCI 125 MG/2 ML VIAL IV SCH ×4 (05:16→23:29)
[2022-04-26 05:18] LABS: Glucose,Whole Blood 107 mg/dL (70-110)
--- NOTE | 2022-04-26 07:07 | XR ---
EXAMINATION TYPE: XR chest 1V portable DATE OF EXAM: 04/26/2022 5:31 AM COMPARISON: Chest radiographs from 04/25/2022. TECHNIQUE: XR chest 1V portable Frontal view of the chest. CLINICAL INDICATION:Male, 71 years old with history of assess lungs; FINDINGS: Lungs/Pleura: Unchanged chronic parenchymal changes with increased opacities in the left midlung and bilateral lower lungs redemonstrated. The left costophrenic angles not visualized. No sizable pleural effusion or pneumothorax. Pulmonary vascularity: Unremarkable. Heart/mediastinum: Cardiomediastinal silhouette is unremarkable. Atherosclerotic calcifications are seen in the aorta. Musculoskeletal: No acute osseous pathology. Lines/Tubes: Stable tracheostomy cannula and left-sided PICC line. IMPRESSION: Overall no significant change from prior examination with chronic parenchyma changes and bibasilar an d left midlung infiltrates and/or atelectasis.
[2022-04-26] MEDS: SYMBICORT 160-4.5 MCG INHALER INHALATION SCH ×2 (08:04→20:08)
[2022-04-26] MEDS: PANTOPRAZOLE 40 MG/10 ML VIAL IVP SCH (08:32)
[2022-04-26] MEDS: APIXABAN 5 MG TAB PO SCH ×2 (08:32→21:08)
[2022-04-26] MEDS: CHOLECALCIFEROL 25 MCG (1000 IU) TABLET PO SCH (08:32)
--- NOTE | 2022-04-26 08:32 | P.PN ---
Subjective Principal diagnosis: Respiratory failure This is 71 white male with known history of COPD who is not intubated but slowly weaning. The patient is on FiO2 65 percent.PEEP of 10. Still with left basal consolidation x-ray yesterday. Difficulty weaning. He is not following commands Long-term prognosis is poor Pulmonology noted. Objective - Vital Signs Vital signs: Vital Signs Temp 97.8 F 04/26/22 04:00 Pulse 92 04/26/22 07:00 Resp 24 04/26/22 07:00 BP 118/64 04/26/22 07:00 Pulse Ox 93 L 04/26/22 07:00 FiO2 65 04/26/22 07:22 Intake & Output 04/25/22 04/26/22 04/26/22 18:59 06:59 18:59 Intake Total 1846.885 883.778 80 Output Total 350 580 40 Balance 1496.885 303.778 40 Weight 89.6 kg Intake: IV 404 236 23 D5W @10mls/hr 120 10 Dextrose 5% in Water 1, 315 000 ml @ 75 mls/hr IV . [id number] [facility] Rx#:[id number] Sodium Chloride 0.9% 80 10 Sodium Chloride 0.9% 1, 50 000 ml @ 999 mls/hr IV . Q1H1M [facility] Rx#:[id number] pressure bag 39 36 3 Intake, IV Titration 1001.885 233.778 Amount Norepinephrine 4 mg In 326.885 108.778 Sodium Chloride 0.9% 250 ml @ 0.05 MCG/KG/MIN 16. 44 mls/hr IV .[id number] [facility] Rx#:[id number] Piperacillin-Tazobactam 3 175 125 .375 gm In Sodium Chloride 0.9% 100 ml @ 25 mls/hr IVPB Q8HR [facility] Rx# :[id number] Sodium Chloride 0.9% 500 500 ml 500 ml @ 999 mls/hr IV .Q31M [facility] Rx#:[id number] Tube Feeding 351 324 27 Other 90 90 30 Output: Urine 350 580 40 Other: Voiding Method Indwelling Catheter Indwelling Catheter # Bowel Movements 1 ABP, PAP, CO, CI - Last Documented Arterial Blood Pressure 119/48 - Constitutional General appearance: Absent: cooperative, mild distress - EENT Eyes: Absent: abnormal pupil - Neck Neck: Absent: lymphadenopathy - Respiratory Respiratory: bilateral: diminished - Cardiovascular Rhythm: regular Heart sounds: normal: S1, S2 Abnormal Heart Sounds: Absent: S3 Gallop - Gastrointestinal General gastrointestinal: Present: soft. Absent: tenderness - Integumentary Integumentary: Absent: cellulitis - Labs CBC & Chem 7: 04/26/22 03:10 04/26/22 03:10 Labs: Abnormal Lab Results - Last 24 Hours (Table) 04/25/22 04/25/22 04/26/22 Range/Units 11:44 17:40 03:10 WBC 24.9 H (3.8-10.6) k/uL RBC 2.90 L (4.30-5.90) m/uL Hgb 8.9 L (13.0-17.5) gm/dL Hct 30.0 L (39.0-53.0) % MCV 103.4 H (80.0-100.0) fL MCHC 29.8 L (31.0-37.0) g/dL RDW 21.2 H (11.5-15.5) % Neutrophils # 24.2 H (1.3-7.7) k/uL Lymphocytes # 0.1 L (1.0-4.8) k/uL Macrocytosis Marked A ABG pH (7.35-7.45) ABG pCO2 (35-45) mmHg ABG pO2 (83-108) mmHg ABG HCO3 (21-25) mmol/L ABG Total CO2 (19-24) mmol/L ABG Hematocrit (34.0-46.0) % Hemoglobin (13.0-17.5) gm/dL Carbon Dioxide (22-30) mmol/L BUN (9-20) mg/dL POC Glucose (mg/dL) 171 H 136 H (70-110) mg/dL 04/26/22 04/26/22 Range/Units 03:10 05:07 WBC (3.8-10.6) k/uL RBC (4.30-5.90) m/uL Hgb (13.0-17.5) gm/dL Hct (39.0-53.0) % MCV (80.0-100.0) fL MCHC (31.0-37.0) g/dL RDW (11.5-15.5) % Neutrophils # (1.3-7.7) k/uL Lymphocytes # (1.0-4.8) k/uL Macrocytosis ABG pH 7.32 L (7.35-7.45) ABG pCO2 71 H* (35-45) mmHg ABG pO2 72 L (83-108) mmHg ABG HCO3 36 H (21-25) mmol/L ABG Total CO2 38 H (19-24) mmol/L ABG Hematocrit 26 L (34.0-46.0) % Hemoglobin 8.6 L (13.0-17.5) gm/dL Carbon Dioxide 35 H (22-30) mmol/L BUN 75 H (9-20) mg/dL POC Glucose (mg/dL) (70-110) mg/dL Assessment and Plan (1) COPD (chronic obstructive pulmonary disease) Current Visit: Yes Status: Acute Code(s): J44.9 - CHRONIC OBSTRUCTIVE PULMONARY DISEASE, UNSPECIFIED SNOMED Code(s): 82479160 (2) Acute exacerbation of chronic obstructive pulmonary disease Current Visit: No Status: Acute Code(s): J44.1 - CHRONIC OBSTRUCTIVE PULMONARY DISEASE W (ACUTE) EXACERBATION SNOMED Code(s): 739122992 (3) Acute respiratory failure Current Visit: No Status: Acute Code(s): J96.00 - ACUTE RESPIRATORY FAILURE, UNSP W HYPOXIA OR HYPERCAPNIA SNOMED Code(s): 92793010 (4) Pneumonia Current Visit: No Status: Acute Code(s): J18.9 - PNEUMONIA, UNSPECIFIED ORGANISM SNOMED Code(s): 122894948 (5) Hilar mass Current Visit: Yes Status: Acute Code(s): R91.8 - OTHER NONSPECIFIC ABNORMAL FINDING OF LUNG FIELD SNOMED Code(s): 454801410 Plan: Still with hypercarbia We'll continue to follow with multiple consultants. Continue current regimen of treatment. Appreciate multiple consultants input. Check CBC and CMP in a.m. 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
[2022-04-26] MEDS: CHLORHEXIDINE GLUCONATE 15 ML CUP MUCOUS MEM SCH ×2 (08:33→21:08)
[2022-04-26] MEDS: PIPERACILLIN-TAZOBACTAM 3.375 GM in SODIUM CHLORIDE 0.9% 100 ML IVPB SCH ×3 (08:33→23:29)
[2022-04-26] MEDS: GABAPENTIN 300 MG CAP PO SCH ×3 (08:56→21:08)
[2022-04-26] MEDS: QUEtiapine 100 MG TAB PO SCH ×2 (08:57→21:08)
[2022-04-26 10:18] VITALS: BMI 29.1
--- NOTE | 2022-04-26 10:33 | P.PN ---
Subjective Progress Note Date: 04/26/22 Principal diagnosis: Respiratory failure. Reevaluated today on 04/03/22, patient remains in the ICU intubated and mechanically ventilated. He is now on assist control rate of 20 to volume 450 FiO2 35% and PEEP of 5. Peak airway pressure is 35. His ABG showed a pO2 of 106 pCO2 56 pH of 7.34. Patient remains on 35% FiO2. Patient is off norepinephrine he remains on normal saline at 50 mL an hour and on propofol at 50 mcg/kg/m. Patient is receiving vital Hp at 50 mL/h the goal is 50. On physical examination continues to have rhonchi and wheezes bilaterally chest x- rays showing slight improvement in his bilateral infiltrates. Left hilar mass remains the same. Hence I have no plans to wean the patient today, and the family has made a decision that the patient does not wean in the next few days, they would like him to proceed with tracheostomy and PEG tube placement and eventual placement. We will decide this early next week in the meantime patient is not related to believe that extubated. CBC is relatively unremarkable WBC 7.3 hemoglobin is 8.8, basic metabolic profile is relatively normal, BUN is 67 creatinine is 1.36 hence we will increase his IV fluid to 75 mL Reevaluated today on 04/04/22, patient remains in the ICU, intubated and mechanically ventilated. Not much of a change management manager the last 24 hours, patient remains on assist control rate of 20 to volume 450 FiO2 35% and PEEP of 5. ABG showed a pO2 of 69 pCO2 of 67 pH of 7.29. Hence we'll increase his rate to 24. Patient remains on propofol at 50 mcg/kg/m, IV fluid 0.9 normal saline at 75 mL per hour. He is receiving vital HP at 50 mL per hour/cor. His sputum is coming back positive for Serratia and Haemophilus influenza both are covered with Zosyn. Patient has been on Zosyn all along. Patient is sedated however I will try to awaken the patient today, and assess mental status. On physical examination he continues to have tightness and wheezing and I don't believe the patient is ready to have any weaning trials again. Today I even discussed the situation all over with the family about possible tracheostomy PEG tube placement PICC line placement and eventual placement and a ventilator facility. I also discussed the option of comfort care measures. Family seems to be inclin ed to proceed with tracheostomy and PEG tube placement as well as PICC line placement and eventual transfer to a ventilator facility/selective care specialty. Prognosis is obviously very poor, and the family is very well aware that the patient has poor prognosis with severe end-stage COPD and bronchogenic carcinoma. WBC count is 8.8 hemoglobin is 9.7, basic metabolic profile is normal BUN is 60 creatinine 0.68. For some reason a CT angio the chest was ordered yesterday, no evidence of pulmonary embolism clinically I never thought that the patient had pulmonary embolism and the clinical presentation is not a presentation of pulmonary embolism. Progress note dated 04/05/2022. 71-year-old male admitted to the hospital on March 31, with respiratory failure. He was intubated on the same day. He remains on mechanical ventilator. I spoke to his and daughter today. They will agree to tracheostomy and PEG tube placement. This was apparently discussed by my partner with the family yesterday, who knows the patient well, and who has been taking care of this patient for over 20 years. Currently, he remains on the volume assist control, rate 20, tidal volume 450, FiO2 35%, and PEEP of 5. Arterial blood gases show pO2 of 69, pCO2 of 69, and pH is 7.28. The patient remains on propofol at 35 mcg/m, saline at 75 mL an hour, and vital high protein at 50 mL an hour, with a goal of 50 mL an hour. Norepinephrine has been weaned off and the patient remains on Zosyn. White count 11.8, hemoglobin 9.9, hematocrit 33, platelet count 439,000. Sodium 146, potassium 4.9, chlorides 108, CO2 32, BUN 52, creatinine 0.64. Sputum samples from April 01 positive for Serratia, and Haemophilus. Chest x-ray is essentially unchanged. Progress note dated 04/06/2022 71-year-old male admitted to the hospital on March 31, with respiratory failure. He was intubated on the same day. He remains on mechanical ventilator. The patient is to have a tracheostomy tube and PEG tube placed today. He is currently on volume assist control, rate 20, tidal volume 450, FiO2 40%, and PEEP of 5. Blood gases show pO2 of 91, pCO2 of 65, and pH is 7.33. The patient is currently on propofol at 40 mcg/kg/m, and saline at 75 mL an hour. Tube feedings on hold in anticipation of the surgical procedure today. White count 11.4, hemoglobin 9.4, hematocrit 31.6, and platelet count 460,000. Sodium 148, potassium 4.6, chlorides 109, CO2 30, anion gap 7, BUN 47, and creatinine 0.71. Chest x-ray shows some diffuse bilateral infiltrates, and is essentially unchanged. Progress note dated 04/07/2022. 71-year-old male admitted to the hospital on March 31, with respiratory failure. He was intubated on the same day. He remains on the mechanical ventilator. Yesterday, he had a tracheostomy tube and a PEG tube placed by surgery. The patient is on volume assist control, rate 20, tidal volume 450, FiO2 40%, and PEEP of 5. Blood gases show a PaO2 of 86, pCO2 of 68, and pH 7.31. He is somewhat dyssynchronous with the ventilator, so we will switch him to pressure regulated volume control or VC plus with a targeted tidal volume of 450, inspiratory time of 0.8 seconds. He's currently on propofol at 25 mcg/kg/m, norepinephrine at 0.07 mcg/kg/m, lactated Ringer's at 10 mL an hour, and D5W at 75 mL an hour. Tube feedings have not yet been restarted. White count 10.5, hemoglobin 8.7, hematocrit 28.6, and platelet count 355,000. Sodium 143, potassium 4.6, chloride 106, CO2 33, BUN 32, and creatinine 0.72. Albumin is 2.3. Sputum from April 01 showed both Serratia marcescens and Haemophilus influenzae. No chest x-ray she had today. Progress note dated 04/08/2022. 71-year-old male who was admitted to the hospital on March 31, with respiratory failure. He was unfortunately intubated on the same day. He remains on the mechanical ventilator. He is status post tracheostomy and PEG tube placement. Currently, he is on pressure regulated volume control, with a targeted tidal volume of 450, anion inspiratory time of 0.8 seconds. His respiratory rate is 20 his FiO2 is 40% PEEP is 5. He is much more synchronous with the ventilator. Blood gases show pO2 of 88, pCO2 of 61, and a pH is 7.37. The patient's Zosyn will be discontinued. He'll get Lasix 40 mg IV push. In addition, in an attempt to get him off the propofol, we added Dilaudid 1 mg every 2 hours when necessary, and Seroquel 50 mg 3 times a day. His norepinephrine is currently on hold. He is on propofol at 45 mcg/kg/m, and D5W at 75 mL an hour, which will be made KVO. Finally, he is getting Vital at 20 mL an hour, with a goal of 50. White count 8.5, hemoglobin 8.2, hematocrit 27.5, and platelet count 319,000. Sodium 139, potassium 4.6, chlorides 101, CO2 33, E1 31, and creatinine 0.67. Albumin is only 2.2. Sputum sampling from April 01 shows evidence of both Serratia marcescens and Haemophilus influenzae. Chest x-ray shows a midline tracheostomy, changes of COPD, and a left perihilar mass. Progress note dated 04/09/2022. 71-year-old male who was admitted to the hospital on March 31 with respiratory failure. He was unfortunately intubated on the same day. He remains on mechani babak ventilator. Because of failure to wean, he is status post tracheostomy and PEG tube placement. He is currently on pressure regulated volume control ventilation, with a targeted tidal volume of 450, and an inspiratory time of 0.8 seconds. In addition, his respiratory rate is 20, FiO2 is 40%, with a PEEP of 5. Blood gases show a PaO2 of 79, pCO2 of 63, and pH 7.37. He is getting Lasix 60 mg today IV push once. We have asked for a PICC line be placed, and he will have Dopplers of the upper extremities, ordered by his primary care physician. In addition, we'll check a pro-calcitonin level. He is getting saline at KVO, and lactated Ringer's at KVO, he is off propofol and norepinephrine. He is getting vital high protein at 40 mL an hour, with a goal of 50. White count 9, hemoglobin 8.3, hematocrit 27.1, with a platelet count of 303,000. Sodium is 140, potassium 4.6, chlorides 100, CO2 36, BUN 30, creatinine 0.6. Albumin is 2.2. Dopplers of the upper extremities bilaterally, are negative. Chest x-ray shows a left hilar mass, emphysematous changes, and some mild infiltrates. Progress note dated 04/10/2022. 71-year-old male who was admitted to the hospital on March 31, with respiratory failure. Unfortunately, the patient was intubated on the same day remains on the mechanical ventilator. Because of failure to wean, he is status post tracheostomy and PEG tube placement. He is currently on pressure regulated volume control ventilation, with a targeted tidal volume 450, and inspiratory time of 0.08 seconds. The patient's FiO2 is 40%, rate is 20, and PEEP of 5. Blood gases show pO2 73, pCO2 of 65 the normal pH is 7.39. Lactated Ringer's at 20 mL an hour. Norepinephrine M propofol have been weaned off. We DC'd the triple-lumen catheter. The patient does have a PICC line in. The patient will get Lasix 60 mg IV push today. Labs today include a white count 12.1, hemoglobin 8.1, hematocrit 26.9, and platelet count 275,000. Sodium is 140, potassium 4.6, chloride 98, CO2 38, BUN 35, and creatinine 0.65. Albumin is 2.3. Chest x-ray is unchanged. Progress note dated 04/11/2022. 71-year-old male, who was admitted to the hospital on March 31, with respiratory failure. Unfortunately, the patient was intubated on the same day, and remains on the mechanical ventilator. Because of failure to wean, he is status post tracheostomy and PEG tube placement. Unfortunately, it was discovered that his tested positive for coronavirus, and he also tested positive his had been spending day and night in the room with him. She had been coughing quite a bit. Currently, he's on pressure regulated volume control, with a targeted tidal volume of 450 and inspiratory time 0.8 seconds. Respiratory rate is 20, FiO2 is 40%, and PEEP is 5. Arterial blood gases on the same settings, but 60%, show pO2 of 172, pCO2 81, and a pH is 7.33. The patie nt's Cleveprex is off. The patient's getting vital high protein at 63 mL an hour, which is goal, in KVO, lactated Ringer's. The patient is given Decadron, 6 mg, IV push daily. We'll DC his updrafts. White count 11.3, hemoglobin 7.6, hematocrit 26, and platelet count 277,000. Sodium 142, potassium 4.9, chlorides 98, CO2 44, BUN 38, creatinine 0.74. Chest x-ray shows changes of COPD, a left hilar mass, unchanged, and bilateral airspace disease, unchanged. Reevaluated today on 04/24/22, patient remains in the ICU, intubated mechanically ventilated. Patient has been experiencing intermittent episodes of agitation, intermittently desaturating up and down, and his ABG is morning was marginal at best. ABG showed a pO2 of 65 pCO2 72 pH of 7.35, but since the ABG was done, his ventilator settings were adjusted since he was desaturating, and he is now on rate of 22, tidal volume 500, FiO2 was increased from 60% to 70%, and PEEP is now 10 instead of 5. Patient remains on Cleviprex at 4 mg/h, he is receiving Nepro at 27 mL per hour D5W at 75 mL per hour. Patient is intermittently on At alec and Dilaudid, today he is not even anywhere Beer weaning and I would not even attempt to wean the patient. Explained to the family at bedside about his condition, and stressed to them that the patient is not doing well, and he will not to do well considering his overall clinical picture. Family still insisting on full measures and not willing to consider comfort care measures at this point. Chest x-ray basically showing no change. Continues to have bilateral patchy airspace disease in left lower lobe and right lower lobe. And left hilar mass is noted previous sputum cultures were positive for Serratia marcescens and for Haemophilus influenza. Considering the patient is having leukocytosis again with WBC count of 32.4 hemoglobin is 9.5, I will likely restart the patient on antibiotics in the form of Zosyn Reevaluated today on 04/25/22, not much of a change management manager the last 24 hours. Patient however is requiring more FiO2 he is up now to 65% FiO2, his vent settings have changed she is on assist control rate of 22, tidal volume of 550 FiO2 went down to 65% from 75% earlier, and PEEP remains at 10. Patient had an ABG showed a pO2 of 88 pCO2 86 pH of 7.23, hence the vent settings with adjusted based on the ABG. Patient is still on Nepro at 27 mL/h, Zosyn was restarted yesterday because of his leukocytosis and worsening chest x-ray. Significant airspace disease noted bilaterally, I am now concerned about the possibility of lymphangitic carcinomatosis. White count is improving today after starting Zosyn yesterday. Clinically the patient is not showing any signs of im provement. I touch bases with the family yesterday, made him aware that the patient is quite ill, and the chances are he would not make it out of this hospitalization. They still insisted on full code measures, and I believe we may have to consider involving the hospital ethics committee to discuss his situation with the family again. Considering his overall picture, the patient will not be accepted into any ventilator facility. He is definitely not weanig and again I strongly feel that the patient will not make it all live out of the hospital. Previously on today's 23.4 hemoglobin is 8.7 and lites are normal, BUN is 76 creatinine is 0.51 Progress note dated 04/26/2022. This is a patient who I last saw on April 11. Please see the note above. The patient was initially admitted on March 31, with respiratory failure, and coronavirus infection. He was intubated on March 31, and underwent tracheostomy on April 06, as well as a PEG tube placement. The patient had another tracheostomy performed, a revision, I should say, on April 23. The patient remains on the mechanical ventilator. Currently, he's on the volume assist control, rate 24, tidal volume 550, FiO2 65%, and PEEP of 10. Arterial blood gases show pO2 of 71, pCO2 of 70, and a pH is 7.31. The patient appears to be dyssynchronous with the ventilator, so we try some pressure assist control, and if that doesn't work, pressure regulated volume control. Appropriate vent settings were given to the nurse and respiratory therapist. Patient remains on saline at KVO, norepinephrine has been weaned off, and the patient's on Nepro, at 27 mL an hour, which is goal. White count 24.9, hemoglobin 8.9, hematocrit 30, and platelet count 257,000. Sodium 140, potassium 4.4, chlorides 100, CO2 35, BUN 75, and creatinine 0.96. A sputum from April 13 shows Serratia marcescens. Chest x-ray remains largely unchan ged, and shows some basilar atelectasis/infiltrate. Objective - Vital Signs Vital signs: Vital Signs Temp 98.2 F 04/26/22 08:00 Pulse 90 04/26/22 10:00 Resp 29 H 04/26/22 10:00 BP 110/59 04/26/22 10:00 Pulse Ox 93 L 04/26/22 10:00 FiO2 65 04/26/22 10:05 Intake & Output 04/25/22 04/26/22 04/26/22 18:59 06:59 18:59 Intake Total 1846.885 883.778 225 Output Total 350 580 100 Balance 1496.885 303.778 125 Weight 89.6 kg 89.6 kg Intake: IV 404 236 114 D5W @10mls/hr 120 30 Dextrose 5% in Water 1, 315 000 ml @ 75 mls/hr IV . [id number] [facility] Rx#:[id number] Piperacillin-Tazobactam 3 75 .375 gm In Sodium Chloride 0.9% 100 ml @ 25 mls/hr IVPB Q8HR [facility] Rx# :[id number] Sodium Chloride 0.9% 80 0 Sodium Chloride 0.9% 1, 50 000 ml @ 999 mls/hr IV . Q1H1M [facility] Rx#:[id number] pressure bag 39 36 9 Intake, IV Titration 1001.885 233.778 Amount Norepinephrine 4 mg In 326.885 108.778 Sodium Chloride 0.9% 250 ml @ 0.05 MCG/KG/MIN 16. 44 mls/hr IV .[id number] [facility] Rx#:[id number] Piperacillin-Tazobactam 3 175 125 .375 gm In Sodium Chloride 0.9% 100 ml @ 25 mls/hr IVPB Q8HR [facility] Rx# :[id number] Sodium Chloride 0.9% 500 500 ml 500 ml @ 999 mls/hr IV .Q31M [facility] Rx#:[id number] Tube Feeding 351 324 81 Other 90 90 30 Output: Urine 350 580 100 Other: Voiding Method Indwelling Catheter Indwelling Catheter # Bowel Movements 1 ABP, PAP, CO, CI - Last Documented Arterial Blood Pressure 111/45 - Exam No acute distress, currently not on any sedatives. Midline tracheostomy noted. HEENT examination is grossly unremarkable. Neck supple. Full range of motion. No adenopathy thyromegaly or neck vein distention. Cardiovascular examination reveals regular rhythm rate. S1-S2 normal. No S3 or S4. No discernible murmur noted. Heart sounds are distant. Heart rate 90 bpm. Lungs reveal scattered bilateral rhonchi. Breath sounds equal bilaterally wheezes. No crackles. Saturations are 93 %. Abdomen soft bowel sounds are heard. No masses or tenderness. PEG tube noted. Extremities are intact. No cyanosis clubbing or edema. Skin is without rash or lesion. Neurologic examination is unchanged. Patient is very lethargic. - Labs CBC & Chem 7: 04/26/22 03:10 04/26/22 03:10 Labs: Abnormal Lab Results - Last 24 Hours (Table) 04/25/22 04/25/22 04/26/22 Range/Units 11:44 17:40 03:10 WBC 24.9 H (3.8-10.6) k/uL RBC 2.90 L (4.30-5.90) m/uL Hgb 8.9 L (13.0-17.5) gm/dL Hct 30.0 L (39.0-53.0) % MCV 103.4 H (80.0-100.0) fL MCHC 29.8 L (31.0-37.0) g/dL RDW 21.2 H (11.5-15.5) % Neutrophils # 24.2 H (1.3-7.7) k/uL Lymphocytes # 0.1 L (1.0-4.8) k/uL Macrocytosis Marked A ABG pH (7.35-7.45) ABG pCO2 (35-45) mmHg ABG pO2 (83-108) mmHg ABG HCO3 (21-25) mmol/L ABG Total CO2 (19-24) mmol/L ABG Hematocrit (34.0-46.0) % Hemoglobin (13.0-17.5) gm/dL Carbon Dioxide (22-30) mmol/L BUN (9-20) mg/dL POC Glucose (mg/dL) 171 H 136 H (70-110) mg/dL 04/26/22 04/26/22 Range/Units 03:10 05:07 WBC (3.8-10.6) k/uL RBC (4.30-5.90) m/uL Hgb (13.0-17.5) gm/dL Hct (39.0-53.0) % MCV (80.0-100.0) fL MCHC (31.0-37.0) g/dL RDW (11.5-15.5) % Neutrophils # (1.3-7.7) k/uL Lymphocytes # (1.0-4.8) k/uL Macrocytosis ABG pH 7.32 L (7.35-7.45) ABG pCO2 71 H* (35-45) mmHg ABG pO2 72 L (83-108) mmHg ABG HCO3 36 H (21-25) mmol/L ABG Total CO2 38 H (19-24) mmol/L ABG Hematocrit 26 L (34.0-46.0) % Hemoglobin 8.6 L (13.0-17.5) gm/dL Carbon Dioxide 35 H (22-30) mmol/L BUN 75 H (9-20) mg/dL POC Glucose (mg/dL) (70-110) mg/dL Assessment and Plan Assessment: Acute on chronic hypoxemic and hypercapnic respiratory failure, status post intubation and mechanical ventilation on 03/31/2022, status post tracheostomy and PEG tube placement 04/06/2022, for failure to wean from mechanical ventilation. Status post tracheostomy revision, 04/23/2022. Bilateral pneumonia and sepsis, secondary to Serratia and Haemophilus. Recent positive test for coronavirus, with possible coronavirus associated pneumonia. Acute exacerbation of COPD. History of squamous cell lung cancer, diagnosed December 2021. Previous history of respiratory failure, requiring intubation, and subsequent tracheostomy. Generalized anxiety disorder. Severe/stage III/stage IV COPD, with an FEV1 that's 35%. Degenerative joint disease. Acute kidney injury. Plan: Plan dated 04/05/2022. The patient will proceed with a tracheostomy and PEG tube, as per the wishes of the and daughter. The patient on IV Zosyn, and other breathing treatments. The patient also remains on GI and DVT prophylaxis. No additional recommendations are made. I did mention to the , that the patient may end up at long-term acute care facility or specialized nursing facility. Prognosis is extremely poor. We'll continue with tube feeds. Norepinephrine has been weaned off. Labs, x-rays, medications are all reviewed. Plan dated 04/06/2022. I had a long conversation with the patient's yesterday about PEG tube placement and tracheostomy tube. She is in agreement. She understands that he has a very poor prognosis given his diagnosis of COPD and lung cancer. Nonetheless, she does want to proceed with the PEG tube and the tracheostomy tu be. Labs, x-rays, and medications are reviewed. Prognosis is poor. I did mention to her that he would likely end up at long-term acute care facility or specialized nursing facility after discharge from this institution. The patient remains on Zosyn. His saline IV is changed to D5 W because of hypernatremia. Plan dated 04/07/2022. The patient's ventilation will be changed to pressure regulated volume control. We will have a targeted tidal volume of 450, and a inspiratory time of 0.8 secon ds. The patient remains on propofol, and norepinephrine. Tube feedings have not yet been restarted. He continues on Zosyn for Serratia and Haemophilus influenzae. The patient had a tracheostomy tube and PEG tube placed yesterday, April 06. Labs, x-rays, and medications are reviewed. Overall prognosis remains very poor. I did mention to the that he will probably end up in a long-term acute care center. Plan dated 04/08/2022. The patient's much more synchronous on the ventilator, and the pressure regulated volume control modality. Blood gases are stable. Labs, x-rays, and medications are all reviewed. The patient Zosyn will be discontinued today. He did receive 7 days. For his edema, he will get Lasix 40 mg IV push. We will attempt to get him off the propofol, by adding Dilaudid when necessary, and scheduled Seroquel. His D5W IV will be turned down to KVO. Norepinephrine is currently on hold. Overall prognosis remains very poor. The nursing staff is having difficulty with the patient's tracheostomy, because of scar tissue, from a previous tracheostomy. Plan dated 04/09/2022. Today, the patient's was updated. The patient will likely need to be transferred to a long-term acute care facility. To that end, the patient is no longer on norepinephrine or propofol. The patient is currently on Dilaudid when necessary, and Seroquel. Labs, x-rays, and medications are reviewed. Overall prognosis is very poor. The patient is status post tracheostomy and PEG tube placement. The patient was also recently diagnosed with lung cancer, and December of this year. We will continue to follow make recommendations along the way. Plan dated 04/10/2022. The patient is doing about the same. He remains on the mechanical ventilator. He will get Lasix 60 mg IV push today. Today we discontinue the triple lumen catheter in the inguinal area, and we will culture the tip. Blood gases are reasonable on pressure regulated volume control ventilation. The patient is been weaned off norepinephrine, and he is no longer on propofol, because we've added Dilaudid, and Seroquel. We will continue to follow make recommendations. The plan is to get the patient to a specialized nursing facility or long-term acute care. Prognosis is certainly very guarded. Labs, x-rays, and medications are all reviewed. Plan dated 04/11/2022. The patient remains on mechanical ventilator, on pressure regulated volume control modality. Additional blood gases are reasonable, and the FiO2 was reduced from 60%, down to 40%. His tested positive for coronavirus, and so did he. His had been in his room, since his admission, 07/03. The patient is given Decadron, 6 mg IV push daily. We will DC updrafts as they are aerosol generating procedures. Labs, x-rays, and medications are all reviewed. The patient will likely end up and a long-term acute care facility/specialized [facility]. The patient continues on Dilaudid and Seroquel. Prognosis is poor. Plan dated 04/26/2022. We will attempt various ventilator modalities, the patient appeared to be more comfortable. He is currently dyssynchronous with the ventilator. We'll attempt pressure assist control, and pressure regulated volume control. Ventilator settings have been given to the nurse and respiratory therapist the patient remains on Zosyn. Labs, x-rays, medications are reviewed. The patient overall prognosis is very poor. The patient is currently off of propofol. Attempts to get the patient transferred to [facility]) have been hindered by number of factors. Time with Patient: Greater than 30
[2022-04-26] MEDS: HYDROmorphone 1 MG/ML 1 ML SYRINGE IVP PRN ×2 (11:17→17:51)
[2022-04-26 11:42] LABS: Glucose,Whole Blood 128 mg/dL (70-110)
--- NOTE | 2022-04-26 12:10 | CT ---
EXAMINATION TYPE: CT brain wo con CT DLP: 1247.4 mGycm, Automated exposure control for dose reduction was used. DATE OF EXAM: 04/26/2022 12:00 PM COMPARISON: Prior CT Brain from 04/18/2022 . CLINICAL INDICATION:Male, 71 years old with history of Follow-up CVA, TECHNIQUE: Brain: Multiple axial CT images of the brain were obtained without IV contrast. Frontal and sagittal reformats reviewed FINDINGS: Brain: Extra-axial spaces: No abnormal extra-axial fluid collections. Ventricular system: Within normal limits Cerebral parenchyma: No acute intraparenchymal hemorrhage or mass effect. Redemonstration of mild ce rebral atrophy. Redemonstration of mild white matter hypodensity in the both parietal lobes at the gr ay-white matter junction. The michelle-white junction is well differentiated. Cerebellum: Unremarkable. Mass effect: No evidence of midline shift. Intracranial vasculature: Atherosclerotic calcifications of the intracranial vessels. Soft tissues: Normal. Calvarium/osseous structures: No depressed skull fracture. Paranasal sinuses and mastoid air cells: Mild scattered paranasal sinus disease. Visualized orbits: Bilateral aphakia IMPRESSION: 1. No acute intracranial process. No significant change from prior examination. 2. Similar appearance of biparietal lacunar injuries along with nonspecific white matter changes like ly secondary to chronic microangiopathy.
--- NOTE | 2022-04-26 14:23 | P.PN ---
Subjective Progress Note Date: 04/26/22 I am continuing to see the patient since last seen on 04/18/2022. Please refer to Dr. Beyer's note's for further details. Per his ICU nurse, no visible clinical seizures. He is tach on vent. He was getting Ativan and last used was on 04/24. He continues to be getting Dilaudid PRN. Dr. Beyer has ordered repeat CT head and ordered routine EEG. Objective - Vital Signs Vital signs: Vital Signs Temp 98.2 F 04/26/22 08:00 Pulse 90 04/26/22 12:00 Resp 24 04/26/22 12:00 BP 122/63 04/26/22 12:00 Pulse Ox 95 04/26/22 12:00 FiO2 65 04/26/22 12:00 Intake & Output 04/25/22 04/26/22 04/26/22 18:59 06:59 18:59 Intake Total 1846.885 883.778 389 Output Total 350 580 190 Balance 1496.885 303.778 199 Weight 89.6 kg 89.6 kg Intake: IV 404 236 153 D5W @10mls/hr 120 30 Dextrose 5% in Water 1, 315 000 ml @ 75 mls/hr IV . [id number] [facility] Rx#:[id number] Piperacillin-Tazobactam 3 75 .375 gm In Sodium Chloride 0.9% 100 ml @ 25 mls/hr IVPB Q8HR [facility] Rx# :[id number] Sodium Chloride 0.9% 80 30 Sodium Chloride 0.9% 1, 50 000 ml @ 999 mls/hr IV . Q1H1M [facility] Rx#:[id number] pressure bag 39 36 18 Intake, IV Titration 1001.885 233.778 Amount Norepinephrine 4 mg In 326.885 108.778 Sodium Chloride 0.9% 250 ml @ 0.05 MCG/KG/MIN 16. 44 mls/hr IV .[id number] [facility] Rx#:[id number] Piperacillin-Tazobactam 3 175 125 .375 gm In Sodium Chloride 0.9% 100 ml @ 25 mls/hr IVPB Q8HR [facility] Rx# :[id number] Sodium Chloride 0.9% 500 500 ml 500 ml @ 999 mls/hr IV .Q31M [facility] Rx#:[id number] Tube Feeding 351 324 176 Other 90 90 60 Output: Urine 350 580 190 Other: Voiding Method Indwelling Catheter Indwelling Catheter Indwelling Catheter # Bowel Movements 1 ABP, PAP, CO, CI - Last Documented Arterial Blood Pressure 126/53 - Exam GENERAL: The patient is lying in bed and does not appear in acute distress. LUNG: Clear to auscultation bilaterally and sounds rhonia. Not labored breathing. He has trach and on vent. NEUROLOGICAL: Limited because of his condition. Not on any sedation. Higher mental function: The patient is comatose GCS 3 (E1, VT1, M1). Not verbalizing or following commands. Cranial nerves: I had to manually open his eye and primary gaze is midline. The pupils are round, equal and reactive to light. No facial weakness. He would move his head side to side upon examining him. Otherwise could not assess rest. Motor: The strength is hard to assess. No spontaneous movement. Decrease tone throughout. Has edema of all extremities. Cerebellum: SOME OF THE WORK-UP DURING THIS HOSPITAL VISIT CONSISTED OF: CT of the head was ordered by the ICU team since patient continued to be altered. The CT head is reported as limited by artifact particularly the medication the posterior fossa. Grossly no acute hemorrhage or mass effect. However there is intermediate low attenuation in the superior right parietal and left posterior parietal lobes suspicious for recent ischemia. Recommend follow- up MRI. Degenerative and nonspecific white matter changes most typical of remote ischemia. I personally reviewed the CT of the head and I agree with the repot. HbA1c 7.6. 2-D echo was reported as left ventricular ejection fraction of 25-30% with a global hypokinesis. Moderately dilated right ventricle. Left atrium is normal in size. CT angiography of the head and neck was reported as no evidence of dissection of the cervical internal carotid arteries or vertebral arteries or any evidence of significant stenosis at the carotid bifurcation. No evidence of high-grade stenosis or intracranial aneurysm. Redemonstration of indeterminate low attenuation in the superior right parietal and left posterior parietal lobes. Further evaluation with MRI is recommended. Severe central lobular emphysematous changes with patchy consolidation within the left upper lobe which may represent infection/inflammatory process. Repeat CT of the head on 04/16/2022 his report as there remains intermediate low attenuation in the right parietal and left parietal lobes which are suspicious for an early or acute ischemia. No drift acute hemorrhage. Findings similar to prior exam. Degenerative changes and nonspecific low attenuation in the white matter most typical of remote ischemia. I personally reviewed to the head and I feel the hypoattenuation is over the border of bilateral frontal parietal region. Repeat CT head on 04/18/2022: Is reported as there is probably some microvascul ar ischemia and the parietal lobes. No acute intracranial abnormality. No change compared to the recent exam. Limited 2-D echo was reported as mild left ventricular hypertrophy. Left ventricle ejection fraction 55-60%. Trace mitral regurgitation and tricuspid regurgitation. The body reported it is reported as no evidence of vegetation. - Labs CBC & Chem 7: 04/26/22 03:10 04/26/22 03:10 Labs: Abnormal Lab Results - Last 24 Hours (Table) 04/25/22 04/26/22 04/26/22 Range/Units 17:40 03:10 03:10 WBC 24.9 H (3.8-10.6) k/uL RBC 2.90 L (4.30-5.90) m/uL Hgb 8.9 L (13.0-17.5) gm/dL Hct 30.0 L (39.0-53.0) % MCV 103.4 H (80.0-100.0) fL MCHC 29.8 L (31.0-37.0) g/dL RDW 21.2 H (11.5-15.5) % Neutrophils # 24.2 H (1.3-7.7) k/uL Lymphocytes # 0.1 L (1.0-4.8) k/uL Macrocytosis Marked A ABG pH (7.35-7.45) ABG pCO2 (35-45) mmHg ABG pO2 (83-108) mmHg ABG HCO3 (21-25) mmol/L ABG Total CO2 (19-24) mmol/L ABG Hematocrit (34.0-46.0) % Hemoglobin (13.0-17.5) gm/dL Carbon Dioxide 35 H (22-30) mmol/L BUN 75 H (9-20) mg/dL POC Glucose (mg/dL) 136 H (70-110) mg/dL 04/26/22 04/26/22 Range/Units 05:07 11:41 WBC (3.8-10.6) k/uL RBC (4.30-5.90) m/uL Hgb (13.0-17.5) gm/dL Hct (39.0-53.0) % MCV (80.0-100.0) fL MCHC (31.0-37.0) g/dL RDW (11.5-15.5) % Neutrophils # (1.3-7.7) k/uL Lymphocytes # (1.0-4.8) k/uL Macrocytosis ABG pH 7.32 L (7.35-7.45) ABG pCO2 71 H* (35-45) mmHg ABG pO2 72 L (83-108) mmHg ABG HCO3 36 H (21-25) mmol/L ABG Total CO2 38 H (19-24) mmol/L ABG Hematocrit 26 L (34.0-46.0) % Hemoglobin 8.6 L (13.0-17.5) gm/dL Carbon Dioxide (22-30) mmol/L BUN (9-20) mg/dL POC Glucose (mg/dL) 128 H (70-110) mg/dL Assessment and Plan Assessment: Encephalopathy due to multifactorial: pneumonia/COVID-19, sepsis due to serratia and Haemophilus and metabolic encephalopathy. Last Atian use was on 04/24/22 Probable acute ischemic stroke over bilateral parietal on CT head. Unknown etiology. No a-fib reported so far. 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 Continue Lipitor 10 mg daily at bedtime for now. Cannot obtain MRI since the patient is on a ventilator. Dr. Beyer has requested repeat CT head and routine EEG for today. Repeat CT head is reported as no acute intracranial processes. No significant change from prior examination. Similar appearance of bilateral lacunar and injuries along with nonspecific white matter changes likely secondary due to chronic microangiopathy Routine EEG for today: Preliminary report. There is severe encephalopathy. There is no focal slowing, epileptiform discharges or seizures on the EEG. The excessive beta activity is due to medication effect. Cardiology team does not feel KHANH is needed since no mass or vegetation on repeat 2D echo. Every 3 hour neuro checks On cardiac monitoring PT OT and UNDERWRITING TECHNICIAN are already consulted Please avoid any further Dilaudid or any sedatives that will effect neurological examination. We'll defer the rest of medical management to the primary ICU team The patient condition is critical. His overall prognosis is poor (because of multiple comorbidities). The plan is discussed with his who is at bedside but wants to continue medical management. Also discussed with the patient's ICU nurse. There is no further neurological work-up. Will sign off. Please reconsult if needed. Darrius Fisher M.D. Neuro-Hospitalist Time with Patient: Less than 30
[2022-04-26 17:51] LABS: Glucose,Whole Blood 136 mg/dL (70-110)
[2022-04-26] MEDS: CLEVIDIPINE BUTYRATE 25 MG in EMPTY BAG 1 BAG IV SCH (18:24)
[2022-04-26] MEDS: LORazepam 1 MG/0.5 ML VIAL IV PRN (19:37)
[2022-04-26] MEDS: ATORVASTATIN 10 MG TAB PO SCH (21:08)
[2022-04-26] MEDS: LATANOPROST 0.005% OPHTH DROPS 2.5 ML BTL BOTH EYES SCH (21:08)
--- NOTE | 2022-04-26 23:10 | EEG ---
ELECTROENCEPHALOGRAM REPORT CLINICAL HISTORY: This is a 71-year-old gentleman with altered mental status. The video EEG is obtained to evaluate for seizure and epileptiform activity. RELEVANT MEDICATIONS: Gabapentin and Ativan. Last use of Ativan is on 04/24/2022. EEG TYPE: A routine 21-channel EEG is performed with video using the 10/20 electrode placement system. DESCRIPTION: The patient has a trach and is on a ventilator. The background consists of low-to- moderate voltage of 1.5 to 2.5 nonrhythmic delta activity. There is no physiological stage II sleep architecture seen. There is significant diffuse myogenic artifact. There is diffuse excessive beta activity. INTERICTAL AND ICTAL: none. ACTIVATION PROCEDURE: Photic stimulation and hyperventilation are not performed. CLINICAL INTERPRETATION: This is an abnormal routine EEG. The background slowing is suggestive of severe encephalopathy. Otherwise, there is no focal slowing, epileptiform discharge, or seizure on the EEG. The excessive beta activity is likely due to medication effect. Clinical correlation is recommended. MMIRENA / PURNIMAN: [id number] /
[2022-04-26 23:24] LABS: Glucose,Whole Blood 136 mg/dL (70-110)
[2022-04-27] MEDS: ALBUTEROL HFA INHALER INHALATION SCH ×5 (03:02→19:34)
[2022-04-27] MEDS: LORazepam 1 MG/0.5 ML VIAL IV PRN ×4 (04:17→18:29)
[2022-04-27 04:32] LABS: Anisocytosis Moderate; Basophils % (A) 0 %; Eosinophils % (A) 0 %; HCT 27.4 % (39.0-53.0); HGB 8.2 gm/dL (13.0-17.5); Hypochromasia Marked; Lymphocytes # (A) 0.1 k/uL (1.0-4.8); Lymphocytes % (A) 1 %; MCH 31.1 pg (25.0-35.0); MCHC 29.9 g/dL (31.0-37.0); MCV 104.2 fL (80.0-100.0); Macrocytosis Marked; Mean Platelet Volume 9.5; Monocytes # (A) 0.5 k/uL (0-1.0); Monocytes % (A) 2 %; Neutrophils # (A) 27.5 k/uL (1.3-7.7); Neutrophils % (A) 97 %; Platelet Count 238 k/uL (150-450); RBC 2.63 m/uL (4.30-5.90); RDW 21.2 % (11.5-15.5); WBC 28.3 k/uL (3.8-10.6)
[2022-04-27] MEDS: HYDROmorphone 1 MG/ML 1 ML SYRINGE IVP PRN ×4 (04:44→15:04)
[2022-04-27 04:58] LABS: Calcium 8.9 mg/dL (8.4-10.2); Potassium 4.6 mmol/L (3.5-5.1)
[2022-04-27] MEDS: CLEVIDIPINE BUTYRATE 25 MG in EMPTY BAG 1 BAG IV SCH ×2 (05:00→09:05)
[2022-04-27 05:15] LABS: Glucose,Whole Blood 204 mg/dL (70-110)
[2022-04-27 05:18] LABS: ABG Base Excess 10.8 mmol/L; ABG HCO3 37 mmol/L (21-25); ABG Hematocrit 25 % (34.0-46.0); ABG Oxygen Saturation 87.1 % (94-97); ABG PH 7.29 (7.35-7.45); ABG TCO2 40 mmol/L (19-24)
[2022-04-27] MEDS: methylPREDNISolone SOD SUCCI 125 MG/2 ML VIAL IV SCH ×3 (05:19→18:18)
[2022-04-27] MEDS: INSULIN DETEMIR (LEVEMIR) 100 UNIT/ML SYR SQ SCH (05:19)
[2022-04-27] MEDS: INSULIN ASPART (NovoLOG) 100 UNIT/ML VIAL SQ SCH ×6 (05:20→18:18)
[2022-04-27 05:21] LABS: ABG PCO2 77 mmHg (35-45); ABG PO2 54 mmHg (83-108); Allen Test Performed? no
[2022-04-27] MEDS: SYMBICORT 160-4.5 MCG INHALER INHALATION SCH ×2 (07:06→19:35)
--- NOTE | 2022-04-27 07:58 | XR ---
EXAMINATION TYPE: XR chest 1V portable DATE OF EXAM: 04/27/2022 COMPARISON: 04/26/2022 HISTORY: Shortness of breath TECHNIQUE: Single frontal view of the chest is obtained. FINDINGS: Tracheostomy tube and PICC line stable. Diffuse emphysematous changes seen with coarsened interstitium which may been the basis of chronic interstitial lung disease. Superimposed venous conge stion or pneumonitis in the differential diagnosis. No sizable pneumothorax. Persistent left lower lo be infiltrate and small effusion. Somewhat nodular density at the right lung base noted. IMPRESSION: 1. COPD with left lower lobe infiltrate and small effusion stable. Could not exclude a small nodule a t the right lung base.
[2022-04-27] MEDS: QUEtiapine 100 MG TAB PO SCH (08:51)
[2022-04-27] MEDS: APIXABAN 5 MG TAB PO SCH (08:51)
[2022-04-27] MEDS: GABAPENTIN 300 MG CAP PO SCH ×2 (08:51→16:41)
[2022-04-27] MEDS: PANTOPRAZOLE 40 MG/10 ML VIAL IVP SCH (08:52)
[2022-04-27] MEDS: PIPERACILLIN-TAZOBACTAM 3.375 GM in SODIUM CHLORIDE 0.9% 100 ML IVPB SCH ×2 (08:52→16:41)
[2022-04-27] MEDS: CHLORHEXIDINE GLUCONATE 15 ML CUP MUCOUS MEM SCH (08:52)
[2022-04-27] MEDS: CHOLECALCIFEROL 25 MCG (1000 IU) TABLET PO SCH (08:52)
[2022-04-27 09:18] VITALS: TEMP 97.6
--- NOTE | 2022-04-27 10:29 | P.PN ---
Subjective Progress Note Date: 04/27/22 Principal diagnosis: Respiratory failure. Reevaluated today on 04/03/22, patient remains in the ICU intubated and mechanically ventilated. He is now on assist control rate of 20 to volume 450 FiO2 35% and PEEP of 5. Peak airway pressure is 35. His ABG showed a pO2 of 106 pCO2 56 pH of 7.34. Patient remains on 35% FiO2. Patient is off norepinephrine he remains on normal saline at 50 mL an hour and on propofol at 50 mcg/kg/m. Patient is receiving vital Hp at 50 mL/h the goal is 50. On physical examination continues to have rhonchi and wheezes bilaterally chest x- rays showing slight improvement in his bilateral infiltrates. Left hilar mass remains the same. Hence I have no plans to wean the patient today, and the family has made a decision that the patient does not wean in the next few days, they would like him to proceed with tracheostomy and PEG tube placement and eventual placement. We will decide this early next week in the meantime patient is not related to believe that extubated. CBC is relatively unremarkable WBC 7.3 hemoglobin is 8.8, basic metabolic profile is relatively normal, BUN is 67 creatinine is 1.36 hence we will increase his IV fluid to 75 mL Reevaluated today on 04/04/22, patient remains in the ICU, intubated and mechanically ventilated. Not much of a manager change the last 24 hours, patient remains on assist control rate of 20 to volume 450 FiO2 35% and PEEP of 5. ABG showed a pO2 of 69 pCO2 of 67 pH of 7.29. Hence we'll increase his rate to 24. Patient remains on propofol at 50 mcg/kg/m, IV fluid 0.9 normal saline at 75 mL per hour. He is receiving vital HP at 50 mL per hour/cor. His sputum is coming back positive for Serratia and Haemophilus influenza both are covered with Zosyn. Patient has been on Zosyn all along. Patient is sedated however I will try to awaken the patient today, and assess mental status. On physical examination he continues to have tightness and wheezing and I don't believe the patient is ready to have any weaning trials again. Today I even discussed the situation all over with the family about possible tracheostomy PEG tube placement PICC line placement and eventual placement and a ventilator facility. I also discussed the option of comfort care measures. Family seems to be inclin ed to proceed with tracheostomy and PEG tube placement as well as PICC line placement and eventual transfer to a ventilator facility/selective care specialty. Prognosis is obviously very poor, and the family is very well aware that the patient has poor prognosis with severe end-stage COPD and bronchogenic carcinoma. WBC count is 8.8 hemoglobin is 9.7, basic metabolic profile is normal BUN is 60 creatinine 0.68. For some reason a CT angio the chest was ordered yesterday, no evidence of pulmonary embolism clinically I never thought that the patient had pulmonary embolism and the clinical presentation is not a presentation of pulmonary embolism. Progress note dated 04/05/2022. 71-year-old male admitted to the hospital on March 31, with respiratory failure. He was intubated on the same day. He remains on mechanical ventilator. I spoke to his and daughter today. They will agree to tracheostomy and PEG tube placement. This was apparently discussed by my partner with the family yesterday, who knows the patient well, and who has been taking care of this patient for over 20 years. Currently, he remains on the volume assist control, rate 20, tidal volume 450, FiO2 35%, and PEEP of 5. Arterial blood gases show pO2 of 69, pCO2 of 69, and pH is 7.28. The patient remains on propofol at 35 mcg/m, saline at 75 mL an hour, and vital high protein at 50 mL an hour, with a goal of 50 mL an hour. Norepinephrine has been weaned off and the patient remains on Zosyn. White count 11.8, hemoglobin 9.9, hematocrit 33, platelet count 439,000. Sodium 146, potassium 4.9, chlorides 108, CO2 32, BUN 52, creatinine 0.64. Sputum samples from April 01 positive for Serratia, and Haemophilus. Chest x-ray is essentially unchanged. Progress note dated 04/06/2022 71-year-old male admitted to the hospital on March 31, with respiratory failure. He was intubated on the same day. He remains on mechanical ventilator. The patient is to have a tracheostomy tube and PEG tube placed today. He is currently on volume assist control, rate 20, tidal volume 450, FiO2 40%, and PEEP of 5. Blood gases show pO2 of 91, pCO2 of 65, and pH is 7.33. The patient is currently on propofol at 40 mcg/kg/m, and saline at 75 mL an hour. Tube feedings on hold in anticipation of the surgical procedure today. White count 11.4, hemoglobin 9.4, hematocrit 31.6, and platelet count 460,000. Sodium 148, potassium 4.6, chlorides 109, CO2 30, anion gap 7, BUN 47, and creatinine 0.71. Chest x-ray shows some diffuse bilateral infiltrates, and is essentially unchanged. Progress note dated 04/07/2022. 71-year-old male admitted to the hospital on March 31, with respiratory failure. He was intubated on the same day. He remains on the mechanical ventilator. Yesterday, he had a tracheostomy tube and a PEG tube placed by surgery. The patient is on volume assist control, rate 20, tidal volume 450, FiO2 40%, and PEEP of 5. Blood gases show a PaO2 of 86, pCO2 of 68, and pH 7.31. He is somewhat dyssynchronous with the ventilator, so we will switch him to pressure regulated volume control or VC plus with a targeted tidal volume of 450, inspiratory time of 0.8 seconds. He's currently on propofol at 25 mcg/kg/m, norepinephrine at 0.07 mcg/kg/m, lactated Ringer's at 10 mL an hour, and D5W at 75 mL an hour. Tube feedings have not yet been restarted. White count 10.5, hemoglobin 8.7, hematocrit 28.6, and platelet count 355,000. Sodium 143, potassium 4.6, chloride 106, CO2 33, BUN 32, and creatinine 0.72. Albumin is 2.3. Sputum from April 01 showed both Serratia marcescens and Haemophilus influenzae. No chest x-ray she had today. Progress note dated 04/08/2022. 71-year-old male who was admitted to the hospital on March 31, with respiratory failure. He was unfortunately intubated on the same day. He remains on the mechanical ventilator. He is status post tracheostomy and PEG tube placement. Currently, he is on pressure regulated volume control, with a targeted tidal volume of 450, anion inspiratory time of 0.8 seconds. His respiratory rate is 20 his FiO2 is 40% PEEP is 5. He is much more synchronous with the ventilator. Blood gases show pO2 of 88, pCO2 of 61, and a pH is 7.37. The patient's Zosyn will be discontinued. He'll get Lasix 40 mg IV push. In addition, in an attempt to get him off the propofol, we added Dilaudid 1 mg every 2 hours when necessary, and Seroquel 50 mg 3 times a day. His norepinephrine is currently on hold. He is on propofol at 45 mcg/kg/m, and D5W at 75 mL an hour, which will be made KVO. Finally, he is getting Vital at 20 mL an hour, with a goal of 50. White count 8.5, hemoglobin 8.2, hematocrit 27.5, and platelet count 319,000. Sodium 139, potassium 4.6, chlorides 101, CO2 33, E1 31, and creatinine 0.67. Albumin is only 2.2. Sputum sampling from April 01 shows evidence of both Serratia marcescens and Haemophilus influenzae. Chest x-ray shows a midline tracheostomy, changes of COPD, and a left perihilar mass. Progress note dated 04/09/2022. 71-year-old male who was admitted to the hospital on March 31 with respiratory failure. He was unfortunately intubated on the same day. He remains on mechani babak ventilator. Because of failure to wean, he is status post tracheostomy and PEG tube placement. He is currently on pressure regulated volume control ventilation, with a targeted tidal volume of 450, and an inspiratory time of 0.8 seconds. In addition, his respiratory rate is 20, FiO2 is 40%, with a PEEP of 5. Blood gases show a PaO2 of 79, pCO2 of 63, and pH 7.37. He is getting Lasix 60 mg today IV push once. We have asked for a PICC line be placed, and he will have Dopplers of the upper extremities, ordered by his primary care physician. In addition, we'll check a pro-calcitonin level. He is getting saline at KVO, and lactated Ringer's at KVO, he is off propofol and norepinephrine. He is getting vital high protein at 40 mL an hour, with a goal of 50. White count 9, hemoglobin 8.3, hematocrit 27.1, with a platelet count of 303,000. Sodium is 140, potassium 4.6, chlorides 100, CO2 36, BUN 30, creatinine 0.6. Albumin is 2.2. Dopplers of the upper extremities bilaterally, are negative. Chest x-ray shows a left hilar mass, emphysematous changes, and some mild infiltrates. Progress note dated 04/10/2022. 71-year-old male who was admitted to the hospital on March 31, with respiratory failure. Unfortunately, the patient was intubated on the same day remains on the mechanical ventilator. Because of failure to wean, he is status post tracheostomy and PEG tube placement. He is currently on pressure regulated volume control ventilation, with a targeted tidal volume 450, and inspiratory time of 0.08 seconds. The patient's FiO2 is 40%, rate is 20, and PEEP of 5. Blood gases show pO2 73, pCO2 of 65 the normal pH is 7.39. Lactated Ringer's at 20 mL an hour. Norepinephrine M propofol have been weaned off. We DC'd the triple-lumen catheter. The patient does have a PICC line in. The patient will get Lasix 60 mg IV push today. Labs today include a white count 12.1, hemoglobin 8.1, hematocrit 26.9, and platelet count 275,000. Sodium is 140, potassium 4.6, chloride 98, CO2 38, BUN 35, and creatinine 0.65. Albumin is 2.3. Chest x-ray is unchanged. Progress note dated 04/11/2022. 71-year-old male, who was admitted to the hospital on March 31, with respiratory failure. Unfortunately, the patient was intubated on the same day, and remains on the mechanical ventilator. Because of failure to wean, he is status post tracheostomy and PEG tube placement. Unfortunately, it was discovered that his tested positive for coronavirus, and he also tested positive his had been spending day and night in the room with him. She had been coughing quite a bit. Currently, he's on pressure regulated volume control, with a targeted tidal volume of 450 and inspiratory time 0.8 seconds. Respiratory rate is 20, FiO2 is 40%, and PEEP is 5. Arterial blood gases on the same settings, but 60%, show pO2 of 172, pCO2 81, and a pH is 7.33. The patie nt's Cleveprex is off. The patient's getting vital high protein at 63 mL an hour, which is goal, in KVO, lactated Ringer's. The patient is given Decadron, 6 mg, IV push daily. We'll DC his updrafts. White count 11.3, hemoglobin 7.6, hematocrit 26, and platelet count 277,000. Sodium 142, potassium 4.9, chlorides 98, CO2 44, BUN 38, creatinine 0.74. Chest x-ray shows changes of COPD, a left hilar mass, unchanged, and bilateral airspace disease, unchanged. Reevaluated today on 04/24/22, patient remains in the ICU, intubated mechanically ventilated. Patient has been experiencing intermittent episodes of agitation, intermittently desaturating up and down, and his ABG is morning was marginal at best. ABG showed a pO2 of 65 pCO2 72 pH of 7.35, but since the ABG was done, his ventilator settings were adjusted since he was desaturating, and he is now on rate of 22, tidal volume 500, FiO2 was increased from 60% to 70%, and PEEP is now 10 instead of 5. Patient remains on Cleviprex at 4 mg/h, he is receiving Nepro at 27 mL per hour D5W at 75 mL per hour. Patient is intermittently on At alec and Dilaudid, today he is not even anywhere Beer weaning and I would not even attempt to wean the patient. Explained to the family at bedside about his condition, and stressed to them that the patient is not doing well, and he will not to do well considering his overall clinical picture. Family still insisting on full measures and not willing to consider comfort care measures at this point. Chest x-ray basically showing no change. Continues to have bilateral patchy airspace disease in left lower lobe and right lower lobe. And left hilar mass is noted previous sputum cultures were positive for Serratia marcescens and for Haemophilus influenza. Considering the patient is having leukocytosis again with WBC count of 32.4 hemoglobin is 9.5, I will likely restart the patient on antibiotics in the form of Zosyn Reevaluated today on 04/25/22, not much of a manager change the last 24 hours. Patient however is requiring more FiO2 he is up now to 65% FiO2, his vent settings have changed she is on assist control rate of 22, tidal volume of 550 FiO2 went down to 65% from 75% earlier, and PEEP remains at 10. Patient had an ABG showed a pO2 of 88 pCO2 86 pH of 7.23, hence the vent settings with adjusted based on the ABG. Patient is still on Nepro at 27 mL/h, Zosyn was restarted yesterday because of his leukocytosis and worsening chest x-ray. Significant airspace disease noted bilaterally, I am now concerned about the possibility of lymphangitic carcinomatosis. White count is improving today after starting Zosyn yesterday. Clinically the patient is not showing any signs of im provement. I touch bases with the family yesterday, made him aware that the patient is quite ill, and the chances are he would not make it out of this hospitalization. They still insisted on full code measures, and I believe we may have to consider involving the hospital ethics committee to discuss his situation with the family again. Considering his overall picture, the patient will not be accepted into any ventilator facility. He is definitely not weanig and again I strongly feel that the patient will not make it all live out of the hospital. Previously on today's 23.4 hemoglobin is 8.7 and lites are normal, BUN is 76 creatinine is 0.51 Progress note dated 04/26/2022. This is a patient who I last saw on April 11. Please see the note above. The patient was initially admitted on March 31, with respiratory failure, and coronavirus infection. He was intubated on March 31, and underwent tracheostomy on April 06, as well as a PEG tube placement. The patient had another tracheostomy performed, a revision, I should say, on April 23. The patient remains on the mechanical ventilator. Currently, he's on the volume assist control, rate 24, tidal volume 550, FiO2 65%, and PEEP of 10. Arterial blood gases show pO2 of 71, pCO2 of 70, and a pH is 7.31. The patient appears to be dyssynchronous with the ventilator, so we try some pressure assist control, and if that doesn't work, pressure regulated volume control. Appropriate vent settings were given to the nurse and respiratory therapist. Patient remains on saline at KVO, norepinephrine has been weaned off, and the patient's on Nepro, at 27 mL an hour, which is goal. White count 24.9, hemoglobin 8.9, hematocrit 30, and platelet count 257,000. Sodium 140, potassium 4.4, chlorides 100, CO2 35, BUN 75, and creatinine 0.96. A sputum from April 13 shows Serratia marcescens. Chest x-ray remains largely unchan ged, and shows some basilar atelectasis/infiltrate. Progress note dated 04/27/2022. 71-year-old male who I saw last in March. The patient was initially admitted on March 31 with respiratory failure and coronavirus infection. He was intubated on the same day, and underwent tracheostomy on April 06 as well as a PEG tube placement. The patient had a tracheostomy revision performed on April 23. He remains on the mechanical ventilator. His overall prognosis is very poor. I did have an opportunity to speak to his Va today. I passed on my concerns. She was going to speak to other family members. Currently, he is on pressure regulated volume control, with a targeted tidal v olume of 430 mL, inspiratory time of 0.8 seconds, respiratory rate of 24, FiO2 65%, and PEEP of 13. Blood gases this morning showed a pO2 of 53, pCO2 of 77, and a pH is 7.29. The patient had a repeat brain CT which did not show anything acute. EEG done yesterday showed severe encephalopathy. The patient remains on saline at 20 mL an hour, Cleveprex at 4 mg an hour, and tube feedings with Nepro , at 34 mL an hour, which is goal. White count was 28.3, hemoglobin 8.2, hematocrit 27.4, and platelet count is 238,000. Sodium 140, potassium 4.6, chlorides 101, CO2 37, BUN 82, with a creatinine of 1.13. Chest x-ray shows COPD with left lower lobe infiltrate, and small effusion. Objective - Vital Signs Vital signs: Vital Signs Temp 97.6 F 04/27/22 08:00 Pulse 87 04/27/22 10:00 Resp 26 H 04/27/22 10:00 BP 152/69 04/27/22 09:00 Pulse Ox 88 L 04/27/22 10:00 FiO2 65 04/27/22 10:00 Intake & Output 04/26/22 04/27/22 04/27/22 18:59 06:59 18:59 Intake Total 654 934.267 165.066 Output Total 375 775 150 Balance 279 159.267 15.066 Weight 89.6 kg 85.4 kg Intake: IV 218 389 46 D5W @10mls/hr 30 Piperacillin-Tazobactam 3 75 100 .375 gm In Sodium Chloride 0.9% 100 ml @ 25 mls/hr IVPB Q8HR [facility] Rx# :[id number] Sodium Chloride 0.9% 80 250 40 pressure bag 33 39 6 Intake, IV Titration 13.267 21.066 Amount Clevidipine Butyrate 25 13.267 21.066 mg In Empty Bag 1 bag @ 1 MG/HR 2 mls/hr IV .Q24H [facility] Rx#:[id number] Tube Feeding 346 442 68 Other 90 90 30 Output: Urine 375 775 150 Other: Voiding Method Indwelling Catheter Indwelling Catheter Indwelling Catheter ABP, PAP, CO, CI - Last Documented Arterial Blood Pressure 98/41 - Exam No acute distress, currently not on any sedatives. Midline tracheostomy noted. HEENT examination is grossly unremarkable. Neck supple. Full range of motion. No adenopathy thyromegaly or neck vein distention. Cardiovascular examination reveals regular rhythm rate. S1-S2 normal. No S3 or S4. No discernible murmur noted. Heart sounds are distant. Heart rate 87 bpm. Lungs reveal scattered bilateral rhonchi. Breath sounds equal bilaterally wheezes. No crackles. Saturations are 89 %. Abdomen soft bowel sounds are heard. No masses or tenderness. PEG tube noted. Extremities are intact. No cyanosis clubbing or edema. Skin is without rash or lesion. Neurologic examination is unchanged. Patient is very lethargic. - Labs CBC & Chem 7: 04/27/22 04:00 04/27/22 04:00 Labs: Abnormal Lab Results - Last 24 Hours (Table) 04/26/22 04/26/22 04/26/22 Range/Units 11:41 17:50 23:22 WBC (3.8-10.6) k/uL RBC (4.30-5.90) m/uL Hgb (13.0-17.5) gm/dL Hct (39.0-53.0) % MCV (80.0-100.0) fL MCHC (31.0-37.0) g/dL RDW (11.5-15.5) % Neutrophils # (1.3-7.7) k/uL Lymphocytes # (1.0-4.8) k/uL Macrocytosis ABG pH (7.35-7.45) ABG pCO2 (35-45) mmHg ABG pO2 (83-108) mmHg ABG HCO3 (21-25) mmol/L ABG Total CO2 (19-24) mmol/L ABG O2 Saturation (94-97) % ABG Hematocrit (34.0-46.0) % Hemoglobin (13.0-17.5) gm/dL Carbon Dioxide (22-30) mmol/L BUN (9-20) mg/dL Glucose (74-99) mg/dL POC Glucose (mg/dL) 128 H 136 H 136 H (70-110) mg/dL 04/27/22 04/27/22 04/27/22 Range/Units 04:00 04:00 05:13 WBC 28.3 H (3.8-10.6) k/uL RBC 2.63 L (4.30-5.90) m/uL Hgb 8.2 L (13.0-17.5) gm/dL Hct 27.4 L (39.0-53.0) % MCV 104.2 H (80.0-100.0) fL MCHC 29.9 L (31.0-37.0) g/dL RDW 21.2 H (11.5-15.5) % Neutrophils # 27.5 H (1.3-7.7) k/uL Lymphocytes # 0.1 L (1.0-4.8) k/uL Macrocytosis Marked A ABG pH (7.35-7.45) ABG pCO2 (35-45) mmHg ABG pO2 (83-108) mmHg ABG HCO3 (21-25) mmol/L ABG Total CO2 (19-24) mmol/L ABG O2 Saturation (94-97) % ABG Hematocrit (34.0-46.0) % Hemoglobin (13.0-17.5) gm/dL Carbon Dioxide 37 H (22-30) mmol/L BUN 82 H (9-20) mg/dL Glucose 174 H (74-99) mg/dL POC Glucose (mg/dL) 204 H (70-110) mg/dL 04/27/22 Range/Units 05:17 WBC (3.8-10.6) k/uL RBC (4.30-5.90) m/uL Hgb (13.0-17.5) gm/dL Hct (39.0-53.0) % MCV (80.0-100.0) fL MCHC (31.0-37.0) g/dL RDW (11.5-15.5) % Neutrophils # (1.3-7.7) k/uL Lymphocytes # (1.0-4.8) k/uL Macrocytosis ABG pH 7.29 L (7.35-7.45) ABG pCO2 77 H* (35-45) mmHg ABG pO2 54 L* (83-108) mmHg ABG HCO3 37 H (21-25) mmol/L ABG Total CO2 40 H (19-24) mmol/L ABG O2 Saturation 87.1 L (94-97) % ABG Hematocrit 25 L (34.0-46.0) % Hemoglobin 8.2 L (13.0-17.5) gm/dL Carbon Dioxide (22-30) mmol/L BUN (9-20) mg/dL Glucose (74-99) mg/dL POC Glucose (mg/dL) (70-110) mg/dL Assessment and Plan Assessment: Acute on chronic hypoxemic and hypercapnic respiratory failure, status post intubation and mechanical ventilation on 03/31/2022, status post tracheostomy and PEG tube placement 04/06/2022, for failure to wean from mechanical ventilation. Status post tracheostomy revision, 04/23/2022. Bilateral pneumonia and sepsis, secondary to Serratia and Haemophilus. Recent positive test for coronavirus, with possible coronavirus associated pneumonia. Acute exacerbation of COPD. History of squamous cell lung cancer, diagnosed December 2021. Previous history of respiratory failure, requiring intubation, and subsequent tracheostomy. Generalized anxiety disorder. Severe/stage III/stage IV COPD, with an FEV1 that's 35%. Degenerative joint disease. Acute kidney injury. Plan: Plan dated 04/05/2022. The patient will proceed with a tracheostomy and PEG tube, as per the wishes of the and daughter. The patient on IV Zosyn, and other breathing treatments. The patient also remains on GI and DVT prophylaxis. No additional recommendations are made. I did mention to the , that the patient may end up at long-term acute care facility or specialized nursing facility. Prognosis is extremely poor. We'll continue with tube feeds. Norepinephrine has been weaned off. Labs, x-rays, medications are all reviewed. Plan dated 04/06/2022. I had a long conversation with the patient's yesterday about PEG tube placement and tracheostomy tube. She is in agreement. She understands that he has a very poor prognosis given his diagnosis of COPD and lung cancer. Nonetheless, she does want to proceed with the PEG tube and the tracheostomy tube. Labs, x-rays, and medications are reviewed. Prognosis is poor. I did mention to her that he would likely end up at long-term acute care facility or specialized nursing facility after discharge from this institution. The patient remains on Zosyn. His saline IV is changed to D5 W because of hypernatremia. Plan dated 04/07/2022. The patient's ventilation will be changed to pressure regulated volume control. We will have a targeted tidal volume of 450, and a inspiratory time of 0.8 seconds. The patient remains on propofol, and norepinephrine. Tube feedings have not yet been restarted. He continues on Zosyn for Serratia and Haemophilus influenzae. The patient had a tracheostomy tube and PEG tube placed yesterday, April 06. Labs, x-rays, and medications are reviewed. Overall prognosis rem ains very poor. I did mention to the that he will probably end up in a long-term acute care center. Plan dated 04/08/2022. The patient's much more synchronous on the ventilator, and the pressure regulated volume control modality. Blood gases are stable. Labs, x-rays, and medications are all reviewed. The patient Zosyn will be discontinued today. He did receive 7 days. For his edema, he will get Lasix 40 mg IV push. We will attempt to get him off the propofol, by adding Dilaudid when necessary, and scheduled Seroquel. His D5W IV will be turned down to KVO. Norepinephrine is currently on hold. Overall prognosis remains very poor. The nursing staff is having difficulty with the patient's tracheostomy, because of scar tissue, from a previous tracheostomy. Plan dated 04/09/2022. Today, the patient's was updated. The patient will likely need to be transferred to a long-term acute care facility. To that end, the patient is no longer on norepinephrine or propofol. The patient is currently on Dilaudid when necessary, and Seroquel. Labs, x-rays, and medications are reviewed. Overall prognosis is very poor. The patient is status post tracheostomy and PEG tube pl acement. The patient was also recently diagnosed with lung cancer, and December of this year. We will continue to follow make recommendations along the way. Plan dated 04/10/2022. The patient is doing about the same. He remains on the mechanical ventilator. He will get Lasix 60 mg IV push today. Today we discontinue the triple lumen catheter in the inguinal area, and we will culture the tip. Blood gases are reasonable on pressure regulated volume control ventilation. The patient is been weaned off norepinephrine, and he is no longer on propofol, because we've added Dilaudid, and Seroquel. We will continue to follow make recommendations. The plan is to get the patient to a specialized nursing facility or long-term acute care. Prognosis is certainly very guarded. Labs, x-rays, and medications are all reviewed. Plan dated 04/11/2022. The patient remains on mechanical ventilator, on pressure regulated volume control modality. Additional blood gases are reasonable, and the FiO2 was reduced from 60%, down to 40%. His tested positive for coronavirus, and so did he. His had been in his room, since his admission, 07/03. The patient is given Decadron, 6 mg IV push daily. We will DC updrafts as they are aerosol generating procedures. Labs, x-rays, and medications are all reviewed. The patient will likely end up and a long-term acute care facility/specialized nurs ing home. The patient continues on Dilaudid and Seroquel. Prognosis is poor. Plan dated 04/26/2022. We will attempt various ventilator modalities, the patient appeared to be more comfortable. He is currently dyssynchronous with the ventilator. We'll attempt pressure assist control, and pressure regulated volume control. Ventilator settings have been given to the nurse and respiratory therapist the patient remains on Zosyn. Labs, x-rays, medications are reviewed. The patient overall prognosis is very poor. The patient is currently off of propofol. [facility]s [facility] have been hindered by number of factors. Plan dated 04/27/2022. I did have an opportunity to speak to the this morning. I wanted her to consider DO NOT RESUSCITATE, and actually withdraw life support and/or comfort care on this patient. She was going to speak to family members. The patient is doing poorly. The most recent EEG shows severe encephalopathy. The patient is very poorly responsive. Labs, x-rays, medications are reviewed. Computed tomography scan of the brain is reviewed. Blood gases are reviewed. No additional recommendations are made. We will continue to follow and make recommendations along the way. Time with Patient: Greater than 30
[2022-04-27] MEDS: NOREPINEPHRINE 4 MG in SODIUM CHLORIDE 0.9% 250 ML IV SCH (10:42)
[2022-04-27 11:51] LABS: Glucose,Whole Blood 225 mg/dL (70-110)
--- NOTE | 2022-04-27 12:22 | P.PN ---
Subjective Principal diagnosis: Respiratory failure This is 71 white male with known history of COPD who is not intubated but slowly weaning. The patient is on FiO2 65 percent.PEEP of 10. Still with left basal consolidation x-ray yesterday. Difficulty weaning. He is not following commands Long-term prognosis is poor Pulmonology noted. I briefly spoke to the this morning. I do suspect comfort measures soon. Objective - Vital Signs Vital signs: Vital Signs Temp 97.6 F 04/27/22 08:00 Pulse 140 H 04/27/22 11:00 Resp 19 04/27/22 11:00 BP 104/55 04/27/22 11:00 Pulse Ox 90 L 04/27/22 11:00 FiO2 65 04/27/22 11:06 Intake & Output 04/26/22 04/27/22 04/27/22 18:59 06:59 18:59 Intake Total 654 934.267 315.235 Output Total 375 775 155 Balance 279 159.267 160.235 Weight 89.6 kg 85.4 kg Intake: IV 218 389 92 D5W @10mls/hr 30 Piperacillin-Tazobactam 3 75 100 .375 gm In Sodium Chloride 0.9% 100 ml @ 25 mls/hr IVPB Q8HR [facility] Rx# :[id number] Sodium Chloride 0.9% 80 250 80 pressure bag 33 39 12 Intake, IV Titration 13.267 57.235 Amount Clevidipine Butyrate 25 13.267 21.066 mg In Empty Bag 1 bag @ 1 MG/HR 2 mls/hr IV .Q24H [facility] Rx#:[id number] Norepinephrine 4 mg In 36.169 Sodium Chloride 0.9% 250 ml @ 0.05 MCG/KG/MIN 16. 44 mls/hr IV .[id number] [facility] Rx#:[id number] Tube Feeding 346 442 136 Other 90 90 30 Output: Urine 375 775 155 Other: Voiding Method Indwelling Catheter Indwelling Catheter Indwelling Catheter ABP, PAP, CO, CI - Last Documented Arterial Blood Pressure 90/45 - Constitutional General appearance: Present: average body habitus, mild distress - Respiratory Respiratory: bilateral: rhonchi - Cardiovascular Rhythm: regular Heart sounds: normal: S1, S2 Abnormal Heart Sounds: Absent: S3 Gallop - Gastrointestinal General gastrointestinal: Present: soft. Absent: tenderness - Integumentary Integumentary: Absent: cellulitis - Psychiatric Psychiatric: Absent: A&O x's 3 - Labs CBC & Chem 7: 04/27/22 04:00 04/27/22 04:00 Labs: Abnormal Lab Results - Last 24 Hours (Table) 04/26/22 04/26/22 04/27/22 Range/Units 17:50 23:22 04:00 WBC 28.3 H (3.8-10.6) k/uL RBC 2.63 L (4.30-5.90) m/uL Hgb 8.2 L (13.0-17.5) gm/dL Hct 27.4 L (39.0-53.0) % MCV 104.2 H (80.0-100.0) fL MCHC 29.9 L (31.0-37.0) g/dL RDW 21.2 H (11.5-15.5) % Neutrophils # 27.5 H (1.3-7.7) k/uL Lymphocytes # 0.1 L (1.0-4.8) k/uL Macrocytosis Marked A ABG pH (7.35-7.45) ABG pCO2 (35-45) mmHg ABG pO2 (83-108) mmHg ABG HCO3 (21-25) mmol/L ABG Total CO2 (19-24) mmol/L ABG O2 Saturation (94-97) % ABG Hematocrit (34.0-46.0) % Hemoglobin (13.0-17.5) gm/dL Carbon Dioxide (22-30) mmol/L BUN (9-20) mg/dL Glucose (74-99) mg/dL POC Glucose (mg/dL) 136 H 136 H (70-110) mg/dL 04/27/22 04/27/22 04/27/22 Range/Units 04:00 05:13 05:17 WBC (3.8-10.6) k/uL RBC (4.30-5.90) m/uL Hgb (13.0-17.5) gm/dL Hct (39.0-53.0) % MCV (80.0-100.0) fL MCHC (31.0-37.0) g/dL RDW (11.5-15.5) % Neutrophils # (1.3-7.7) k/uL Lymphocytes # (1.0-4.8) k/uL Macrocytosis ABG pH 7.29 L (7.35-7.45) ABG pCO2 77 H* (35-45) mmHg ABG pO2 54 L* (83-108) mmHg ABG HCO3 37 H (21-25) mmol/L ABG Total CO2 40 H (19-24) mmol/L ABG O2 Saturation 87.1 L (94-97) % ABG Hematocrit 25 L (34.0-46.0) % Hemoglobin 8.2 L (13.0-17.5) gm/dL Carbon Dioxide 37 H (22-30) mmol/L BUN 82 H (9-20) mg/dL Glucose 174 H (74-99) mg/dL POC Glucose (mg/dL) 204 H (70-110) mg/dL 04/27/22 Range/Units 11:49 WBC (3.8-10.6) k/uL RBC (4.30-5.90) m/uL Hgb (13.0-17.5) gm/dL Hct (39.0-53.0) % MCV (80.0-100.0) fL MCHC (31.0-37.0) g/dL RDW (11.5-15.5) % Neutrophils # (1.3-7.7) k/uL Lymphocytes # (1.0-4.8) k/uL Macrocytosis ABG pH (7.35-7.45) ABG pCO2 (35-45) mmHg ABG pO2 (83-108) mmHg ABG HCO3 (21-25) mmol/L ABG Total CO2 (19-24) mmol/L ABG O2 Saturation (94-97) % ABG Hematocrit (34.0-46.0) % Hemoglobin (13.0-17.5) gm/dL Carbon Dioxide (22-30) mmol/L BUN (9-20) mg/dL Glucose (74-99) mg/dL POC Glucose (mg/dL) 225 H (70-110) mg/dL Assessment and Plan (1) COPD (chronic obstructive pulmonary disease) Current Visit: Yes Status: Acute Code(s): J44.9 - CHRONIC OBSTRUCTIVE PULMONARY DISEASE, UNSPECIFIED SNOMED Code(s): 04555478 (2) Acute exacerbation of chronic obstructive pulmonary disease Current Visit: No Status: Acute Code(s): J44.1 - CHRONIC OBSTRUCTIVE PULMONARY DISEASE W (ACUTE) EXACERBATION SNOMED Code(s): 193692074 (3) Acute respiratory failure Current Visit: No Status: Acute Code(s): J96.00 - ACUTE RESPIRATORY FAILURE, UNSP W HYPOXIA OR HYPERCAPNIA SNOMED Code(s): 65138776 (4) Pneumonia Current Visit: No Status: Acute Code(s): J18.9 - PNEUMONIA, UNSPECIFIED ORGANISM SNOMED Code(s): 147765579 (5) Hilar mass Current Visit: Yes Status: Acute Code(s): R91.8 - OTHER NONSPECIFIC ABNORMAL FINDING OF LUNG FIELD SNOMED Code(s): 040373693 Plan: Still with hypercarbia We'll continue to follow with multiple consultants. Continue current regimen of treatment. Hopefully we can transition to comfort care once the discusses with her family since the poor prognosis overweaver prognosis is poor
[2022-04-27] MEDS ORDERED: NOREPINEPHRINE 32 MG in SODIUM CHLORIDE 0.9% 218 ML IV SCH (13:15)
[2022-04-27] MEDS ORDERED: ATROPINE OPHTH SOLN 1% 5ML BTL SUBLINGUAL PRN (16:25)
[2022-04-27] MEDS ORDERED: MORPHINE SULFATE 4 MG/ML SYRINGE IVP ONE (16:25)
[2022-04-27] MEDS ORDERED: SCOPOLAMINE 1 MG/72 HR PATCH TRANSDERM SCH (16:30)
[2022-04-27] MEDS ORDERED: MORPHINE SULFATE (100 MG/2 ML) 100 MG in SODIUM CHLORIDE 0.9% 100 ML IV SCH (16:45)
[2022-04-27 17:03] VITALS: BP 129/80; PULSE 130; RESP 24
[2022-04-27] MEDS: MORPHINE SULFATE 4 MG/ML SYRINGE IV PRN ×2 (17:56→18:24)
== END 2022-04-27 22:29 | disposition expired | DRG 4 ==
LOC: EC 21:36 → 3SCARD 22:30 → 2SICU 04-01 03:45
PROVIDERS: ADMIT Family Medicine; ATTEND Family Medicine
PROC: 5A09357 Assistance with Respiratory Ventilation, Less than 24 Consecutive Hours, Continuous Positive Airway Pressure (ICD-10-PCS; 2022-03-31)
PROC: 0D9670Z Drainage of Stomach with Drainage Device, Via Natural or Artificial Opening (ICD-10-PCS; 2022-04-01)
PROC: 5A1955Z Respiratory Ventilation, Greater than 96 Consecutive Hours (ICD-10-PCS; 2022-04-01)
PROC: 3E033XZ Introduction of Vasopressor into Peripheral Vein, Percutaneous Approach (ICD-10-PCS; 2022-04-01)
PROC: 0BH17EZ Insertion of Endotracheal Airway into Trachea, Via Natural or Artificial Opening (ICD-10-PCS; 2022-04-01)
PROC: 3E0G76Z Introduction of Nutritional Substance into Upper GI, Via Natural or Artificial Opening (ICD-10-PCS; 2022-04-02)
PROC: 06HM33Z Insertion of Infusion Device into Right Femoral Vein, Percutaneous Approach (ICD-10-PCS; 2022-04-02)
PROC: 0DH63UZ Insertion of Feeding Device into Stomach, Percutaneous Approach (ICD-10-PCS; 2022-04-06)
PROC: 0B110F4 Bypass Trachea to Cutaneous with Tracheostomy Device, Open Approach (ICD-10-PCS; principal; 2022-04-06 11:05)
PROC: 3E0G76Z Introduction of Nutritional Substance into Upper GI, Via Natural or Artificial Opening (ICD-10-PCS; 2022-04-09)
PROC: 02HV33Z Insertion of Infusion Device into Superior Vena Cava, Percutaneous Approach (ICD-10-PCS; 2022-04-09)
PROC: 0B21XFZ Change Tracheostomy Device in Trachea, External Approach (ICD-10-PCS; 2022-04-23)
PROC: 0BJ08ZZ Inspection of Tracheobronchial Tree, Via Natural or Artificial Opening Endoscopic (ICD-10-PCS; 2022-04-23)
DX: A41.53 Sepsis due to Serratia (principal); J12.82 Pneumonia due to coronavirus disease 2019; I63.9 Cerebral infarction, unspecified; J69.0 Pneumonitis due to inhalation of food and vomit; U07.1 COVID-19; G92.8 Other toxic encephalopathy; E43 Unspecified severe protein-calorie malnutrition; J14 Pneumonia due to Hemophilus influenzae; J15.6 Pneumonia due to other Gram-negative bacteria; I21.A1 Myocardial infarction type 2; J96.21 Acute and chronic respiratory failure with hypoxia; J96.22 Acute and chronic respiratory failure with hypercapnia; G62.81 Critical illness polyneuropathy; R64 Cachexia; G72.81 Critical illness myopathy; N17.9 Acute kidney failure, unspecified; I42.8 Other cardiomyopathies; E87.4 Mixed disorder of acid-base balance; E87.0 Hyperosmolality and hypernatremia; J44.1 Chronic obstructive pulmonary disease with (acute) exacerbation; J44.0 Chronic obstructive pulmonary disease with (acute) lower respiratory infection; C34.02 Malignant neoplasm of left main bronchus; I50.22 Chronic systolic (congestive) heart failure; J98.11 Atelectasis; J95.09 Other tracheostomy complication; Z66 Do not resuscitate; Z51.5 Encounter for palliative care; A41.3 Sepsis due to Hemophilus influenzae; R65.20 Severe sepsis without septic shock; E87.8 Other disorders of electrolyte and fluid balance, not elsewhere classified; E86.1 Hypovolemia; E78.5 Hyperlipidemia, unspecified; F41.1 Generalized anxiety disorder; G25.81 Restless legs syndrome; E87.5 Hyperkalemia; T17.228A Food in pharynx causing other injury, initial encounter; D64.9 Anemia, unspecified; E86.0 Dehydration; N42.9 Disorder of prostate, unspecified; R49.0 Dysphonia; H91.90 Unspecified hearing loss, unspecified ear; M19.90 Unspecified osteoarthritis, unspecified site; Z68.27 Body mass index [BMI] 27.0-27.9, adult; R73.09 Other abnormal glucose; Z99.81 Dependence on supplemental oxygen; Z79.82 Long term (current) use of aspirin; Z79.51 Long term (current) use of inhaled steroids; Z79.52 Long term (current) use of systemic steroids; Z79.899 Other long term (current) drug therapy; Z87.891 Personal history of nicotine dependence; Z87.01 Personal history of pneumonia (recurrent); Z92.21 Personal history of antineoplastic chemotherapy; Z92.3 Personal history of irradiation; Z71.3 Dietary counseling and surveillance; Y92.230 Patient room in hospital as the place of occurrence of the external cause; Z80.1 Family history of malignant neoplasm of trachea, bronchus and lung
CPT/HCPCS: 31624; 36415; 36573; 36600; 43246; 70450; 70496; 70498; 71045; 71275; 80048; 80053; 80061; 81001; 82805; 83036; 83615; 83735; 83880; 84132; 84145; 84484; 85025; 85027; 85379; 85610; 85730; 86140; 87040; 87070; 87077; 87186; 87205; 87635; 93005; 93306; 93308; 93970; 94002; 94003; 94640; 94660; 94760; 95816; 96365; 99291